=== PATIENT | female | born 1965 | race African-American/Black ===

== ENCOUNTER 2018-09-04 15:45 | Inpatient (IN) | payer OTHER ==
[2018-09-04 19:14] VITALS: BMI 27.3
[2018-09-04] MEDS ORDERED: MELATONIN 5 MG TABLETS PO PRN (22:00)
--- NOTE | 2018-09-04 22:05 | HP ---
CIWA Score - Admission Criteria [facility]AS Guidelines: Admission for Medically Managed Detox: Requires at least one of the followin. CIWA greater than 12 2. Seizures within the past 24 hours 3. Delirium tremens within the past 24 hours 4. Hallucinations within the past 24 hours 5. Acute intervention needed for co occurring medical disorder 6. Acute intervention needed for co occurring psychiatric disorder 7. Severe withdrawal that cannot be handled at a lower level of care (continued vomiting, continued diarrhea, abnormal vital signs) requiring intravenous medication and/or fluids 8. Admission ROS S - HPI Chief Complaint: Seeking admission to Rehab Allergies/Adverse Reactions: Allergies Allergy/AdvReac Type Severity Reaction Status Date / Time No Known Allergies Allergy Verified 09/04/18 21:26 History of Present Illness: 52 years old female is seeking admission to Rehab. Patient has medical history of COPD, depression, anxiety, hypertension and asthma. She denies suicide attempt or suicidal ideation at this time Exam Limitations: No Limitations - Ebola screening Have you traveled outside of the country in the last 21 days: No Have you had contact with anyone from an Ebola affected area: No Have you been sick,other than usual withdrawal symptoms: No Do you have a fever: No - Review of Systems Constitutional: No Symptoms Reported EENT: reports: No Symptoms Reported Respiratory: reports: No Symptoms reported Cardiac: reports: No Symptoms Reported GI: reports: No Symptoms Reported : reports: No Symptoms Reported Musculoskeletal: reports: No Symptoms Reported Integumentary: reports: No Symptoms Reported Neuro: reports: No Symptoms reported Endocrine: reports: No Symptoms Reported Hematology: reports: No Symptoms Reported Psychiatric: reports: No Sypmtoms Reported, Mood/Affect Appropiate, Orientated x3 Other Systems: Reviewed and Negative Patient History - Patient Medical History Hx Anemia: No Hx Asthma: Yes (ALBUTEROL) Hx Chronic Obstructive Pulmonary Disease (COPD): Yes (SYMBICORT) Hx Cancer: No Hx Cardiac Disorders: No Hx Congestive Heart Failure: No Hx Hypertension: Yes (NIFEDIPINE) Hx Hypercholesterolemia: Yes Hx Pacemaker: No HX Cerebrovascular Accident: No Hx Seizures: No Hx Dementia: No Hx Diabetes: No Hx Gastrointestinal Disorders: No Hx Liver Disease: No Hx Genitourinary Disorders: No Hx Sexually Transmitted Disorders: No Hx Renal Disease (ESRD): No Hx Thyroid Disease: No Hx Human Immunodeficiency Virus (HIV): No (NEGATIVE 2017) Hx Hepatitis C: No Hx Depression: Yes Hx Suicide Attempt: Yes (DENIES SUICIDAL IDEATION AT [facility]) Hx Bipolar Disorder: No Hx Schizophrenia: No - Patient Surgical History Past Surgical History: Yes Hx Abdominal Surgery: Yes (APPENDICITIS AT AGE 17) - PPD History Previous Implant?: No (INH FOR 6 MONTHS) PPD to be Administered?: No - Reproductive History Patient is a Female of Child Bearing Age (11 -55 yrs old): Yes LMP comment: MENOPAUSAL Patient : No - Smoking Cessation Smoking history: Current every day smoker Have you smoked in the past 12 months: Yes Aproximately how many cigarettes per day: 2 Hx Chewing Tobacco Use: No Initiated information on smoking cessation: Yes 'Breaking Loose' booklet given: 09/04/18 - Substance & Tx. History Hx Alcohol Use: Yes Hx Substance Use: Yes Substance Use Type: Alcohol, Cocaine Hx Substance Use Treatment: Yes ([facility]) - Substances Abused Alcohol Route: Oral Frequency: Daily Amount used: 1 PINT OF VODKA Age of first use: 12 Date of Last Use: 09/02/18 Cocaine Route: Smoking Frequency: Daily Amount used: $200 Age of first use: 25 Date of Last Use: 09/03/18 Family Disease History - Family Disease History Family Disease History: Heart Disease: Father (HTN, ), Mother Admission Physical Exam [facility] - Vital Signs Vital Signs: Vital Signs - 24 hr 09/04/18 19:12 Temperature 97.9 F Pulse Rate 98 H Respiratory 18 Rate Blood Pressure 118/80 - Physical General Appearance: Yes: No Apparent Distress HEENTM: Yes: EOMI, Normal ENT Inspection, Normocephalic, Normal Voice, KAYLEY Respiratory: Yes: Lungs Clear, Normal Breath Sounds, No Respiratory Distress Neck: Yes: Supple Breast: Yes: Breast Exam Deferred Cardiology: Yes: Tachycardia Abdominal: Yes: Normal Bowel Sounds, Soft Genitourinary: Yes: Within Normal Limits Back: Yes: Normal Inspection Musculoskeletal: Yes: Within Normal Limits 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, Alert, Normal Mood/Affect Integumentary: Yes: Warm Lymphatic: Yes: Within Normal Limits - Diagnostic (1) COPD (chronic obstructive pulmonary disease) Current Visit: Yes Status: Chronic Qualifiers: Chronic bronchitis type: unspecified (2) Depression Current Visit: Yes Status: Chronic Qualifiers: Depression Type: unspecified Qualified Code(s): F32.9 - Major depressive disorder, single episode, unspecified (3) Anxiety Current Visit: Yes Status: Acute (4) Hypertension Current Visit: Yes Status: Acute (5) Asthma Current Visit: Yes Status: Acute (6) Hypercholesterolemia Current Visit: No Status: Acute (7) Nicotine dependence Current Visit: No Status: Acute Qualifiers: Nicotine product type: cigarettes Substance use status: uncomplicated Qualified Code(s): F17.210 - Nicotine dependence, cigarettes, uncomplicated (8) Cocaine dependence Current Visit: Yes Status: Chronic Qualifiers: Substance use status: uncomplicated Qualified Code(s): F14.20 - Cocaine dependence, uncomplicated (9) Alcohol dependence Current Visit: Yes Status: Chronic Qualifiers: Substance use status: uncomplicated Qualified Code(s): F10.20 - Alcohol dependence, uncomplicated Cleared for Admission [facility] - Detox or Rehab [facility] Level of Care: Observation Bed Claeared for Rehab Admission: Yes [facility] Breath Alcohol Content Breath Alcohol Content: 0 Urine Pregancy Test - Result Urine Test Results: Negative- NO Line Present Urine Drug Screen - Results Drug Screen Negative: No Urine Drug Screen Results: MARIBETH-Cocaine Inpatient Rehab Admission - Initial Determination Are CD services needed?: Yes Free of communicable disease: Yes Not in need of hospitalization: Yes - Rehab Admission Criteria Previous failed treatment: Yes Poor recovery environment: Yes Comorbidities: Yes Lacks judgement: No Patient is meeting Inpatient Rehab admission criteria:: Yes
[2018-09-04] MEDS ORDERED: NICOTINE POLACRILEX 2 MG GUM BC PRN (22:16)
[2018-09-04] MEDS ORDERED: MAGNESIUM HYDROX 2400MG/30ML ORAL SUSPENSION 30 ML CUP PO PRN (22:16)
[2018-09-04] MEDS ORDERED: LOPERAMIDE HCL 2 MG CAPSULE PO PRN (22:16)
[2018-09-04] MEDS ORDERED: MENTHOL/PHENOL 1 EACH UD MM PRN (22:16)
[2018-09-04] MEDS ORDERED: MAG HYDROX/AL HYDROX/SIMETH 30 ML UNIT-DOSE CUP PO PRN (22:16)
[2018-09-04] MEDS ORDERED: MAGNESIUM CITRATE 300 ML BOTTLE PO PRN (22:16)
[2018-09-05] MEDS: ALBUTEROL SO4 8 GM HFA INHALER IH PRN (00:09)
[2018-09-05] MEDS: ALBUTEROL SO4 2.5/IPRATROPIUM 0.5 INH SOL 3 ML VIAL.NEB. NEB PRN ×2 (06:50→15:43)
[2018-09-05] MEDS ORDERED: PT OWN MED DRAWER 7, Y5N ONE ×3 (08:15→23:22)
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
[2018-09-05] MEDS: HYDROCHLOROTHIAZIDE 12.5 MG CAPSULE (FP) PO SCH (09:45)
[2018-09-05] MEDS: NICOTINE 14 MG/24 HOURS TOPICAL PATCH TD SCH (09:45)
[2018-09-05] MEDS: PRENATAL VITAMINS W/ FOLIC ACID TABLET (FP) PO SCH (09:45)
[2018-09-05] MEDS: NIFEdipine E.R. 30 MG TABLET (FP) PO SCH (10:12)
[2018-09-05] MEDS: BUDESONIDE/FORMETEROL FUMARATE 160/4.5 mcg INHALER IH SCH (10:12)
[2018-09-05 11:02] LABS: ALBUMIN 3.4 g/dl (3.4-5.0); ALK PHOS 103 U/L (45-117); ANION GAP 10 MMOL/L (8-16); BILIRUBIN,TOTAL 0.2 mg/dL (0.2-1); BLOOD UREA NITROGEN 18 mg/dL (7-18); CALCIUM 8.7 mg/dL (8.5-10.1); CHLORIDE 105 mmol/L (98-107); CO2 26 mmol/L (21-32); CREATININE 0.8 mg/dL (0.55-1.3); GLUCOSE,RANDOM 90 mg/dL (74-106); SGOT/AST 15 U/L (15-37); SGPT/ALT 24 U/L (13-61); SODIUM 141 mmol/L (136-145); TOT PROT 6.5 g/dl (6.4-8.2)
[2018-09-05 11:08] LABS: HEMATOCRIT 39.7 % (32.4-45.2); HEMOGLOBIN 12.8 GM/dL (10.7-15.3); MCHC 32.3 g/dl (32.0-36.0); MEAN CELL VOLUME 92.9 fl (80-96); MEAN PLT VOLUME 8.5 fl (7.5-11.1); PLATELET COUNT 253 K/MM3 (134-434); RBC 4.27 M/mm3 (3.60-5.2); RDW 14.6 % (11.6-15.6); WHITE BLOOD COUNT 9.1 K/mm3 (4.0-10.0)
--- NOTE | 2018-09-05 12:29 | EKG ---
Test Reason : Blood Pressure : / mmHG Vent. Rate : 074 BPM Atrial Rate : 074 BPM P-R Int : 144 ms QRS Dur : 086 ms QT Int : 390 ms P-R-T Axes : 072 076 067 degrees QTc Int : 432 ms NORMAL SINUS RHYTHM NORMAL ECG NO PREVIOUS ECGS AVAILABLE Confirmed by AMY TORRES, ESTRELLA ([id number]) on 09/05/2018 12:29:19 PM Referred By: Confirmed By:ESTRELLA REYES MD
[2018-09-05] MEDS: SERTRALINE HCL 50 MG TABLET (FP) PO SCH (15:43)
[2018-09-05 17:20] LABS: URINE APPEARANCE CLEAR; URINE BILIRUBIN NEGATIVE (<2.0 mg/dL); URINE COLOR YELLOW; URINE GLUCOSE (UA) NEGATIVE (NEGATIVE); URINE KETONE NEGATIVE (NEGATIVE); URINE LEUK ESTERASE TRACE (NEGATIVE); URINE NITRITE NEGATIVE (NEGATIVE); URINE PROTEIN NEGATIVE (NEGATIVE); URINE UROBILINOGEN NEGATIVE mg/dL (0.2-1.0)
[2018-09-05 17:22] LABS: EPI CELLS RARE /HPF (FEW); URINE MUCUS RARE
[2018-09-05] MEDS: THIAMINE HCL 100 MG TABLET (FP) PO SCH (21:19)
[2018-09-05] MEDS: traZODone HCL 100 MG TABLET (FP) PO SCH (21:20)
[2018-09-05] MEDS: MIRTAZAPINE 30 MG TABLET (FP) PO SCH (21:20)
[2018-09-06] MEDS: ALBUTEROL SO4 2.5/IPRATROPIUM 0.5 INH SOL 3 ML VIAL.NEB. NEB PRN ×2 (07:47→21:45)
[2018-09-06] MEDS: ALBUTEROL SO4 8 GM HFA INHALER IH PRN (08:54)
[2018-09-06] MEDS: SERTRALINE HCL 50 MG TABLET (FP) PO SCH (09:45)
[2018-09-06] MEDS: NIFEdipine E.R. 30 MG TABLET (FP) PO SCH (09:45)
[2018-09-06] MEDS: PRENATAL VITAMINS W/ FOLIC ACID TABLET (FP) PO SCH (09:46)
[2018-09-06] MEDS: HYDROCHLOROTHIAZIDE 12.5 MG CAPSULE (FP) PO SCH (09:46)
[2018-09-06] MEDS: BUDESONIDE/FORMETEROL FUMARATE 160/4.5 mcg INHALER IH SCH (09:46)
[2018-09-06] MEDS: NICOTINE 14 MG/24 HOURS TOPICAL PATCH TD SCH (09:47)
[2018-09-06] MEDS ORDERED: PT OWN MED DRAWER 7, Y5N ONE (10:22)
--- NOTE | 2018-09-06 11:36 | PN ---
S Progress Note Note: CXR RESULTS REVIEWED. PER HX AND PE PATIENT TREATED FOR 6 MONTHS WITH INH FOR +PPD. CXR SHOWS LEFT HEMITHORAX POSSIBLE SCARRING FROM OLD TB AND INFLAMMATION. NO PREVIOUS STUDIES. CORRELATION RECOMMENDED. WILL REPEAT CXR FIRST BEFORE ORDERING FURTHER IMAGING. CONTINUE TO MONITOR CLINICALLY. Vital Signs Temperature 98.1 F 09/06/18 07:05 Pulse Rate 112 H 09/06/18 09:32 Respiratory Rate 18 09/06/18 07:05 Blood Pressure 133/83 09/06/18 09:32 O2 Sat by Pulse Oximetry (%)
[2018-09-06] MEDS: LABETALOL HCL 100 MG TABLET (FP) PO SCH (12:31)
[2018-09-06] MEDS: MIRTAZAPINE 30 MG TABLET (FP) PO SCH (21:33)
[2018-09-06] MEDS: THIAMINE HCL 100 MG TABLET (FP) PO SCH (21:33)
[2018-09-06] MEDS: traZODone HCL 100 MG TABLET (FP) PO SCH (21:33)
[2018-09-07] MEDS: ALBUTEROL SO4 2.5/IPRATROPIUM 0.5 INH SOL 3 ML VIAL.NEB. NEB PRN ×3 (06:49→21:24)
[2018-09-07] MEDS ORDERED: PT OWN MED DRAWER 7, Y5N ONE (08:55)
[2018-09-07] MEDS: LABETALOL HCL 100 MG TABLET (FP) PO SCH (09:56)
[2018-09-07] MEDS: ATORVASTATIN CA 10 MG TABLET (FP) PO SCH (09:56)
[2018-09-07] MEDS: SERTRALINE HCL 50 MG TABLET (FP) PO SCH (09:56)
[2018-09-07] MEDS: PRENATAL VITAMINS W/ FOLIC ACID TABLET (FP) PO SCH (09:56)
[2018-09-07] MEDS: HYDROCHLOROTHIAZIDE 12.5 MG CAPSULE (FP) PO SCH (09:56)
[2018-09-07] MEDS: NICOTINE 14 MG/24 HOURS TOPICAL PATCH TD SCH (09:57)
[2018-09-07] MEDS: BUDESONIDE/FORMETEROL FUMARATE 160/4.5 mcg INHALER IH SCH (09:57)
[2018-09-07] MEDS: ALBUTEROL SO4 8 GM HFA INHALER IH PRN (09:57)
[2018-09-07] MEDS: NIFEdipine E.R. 30 MG TABLET (FP) PO SCH (10:33)
[2018-09-07] MEDS: MIRTAZAPINE 30 MG TABLET (FP) PO SCH (21:26)
[2018-09-07] MEDS: traZODone HCL 100 MG TABLET (FP) PO SCH (21:26)
[2018-09-07] MEDS: THIAMINE HCL 100 MG TABLET (FP) PO SCH (21:26)
[2018-09-08] MEDS: ALBUTEROL SO4 2.5/IPRATROPIUM 0.5 INH SOL 3 ML VIAL.NEB. NEB PRN ×3 (04:59→21:29)
[2018-09-08] MEDS ORDERED: PT OWN MED DRAWER 7, Y5N ONE (08:39)
[2018-09-08] MEDS: ATORVASTATIN CA 10 MG TABLET (FP) PO SCH (09:14)
[2018-09-08] MEDS: PRENATAL VITAMINS W/ FOLIC ACID TABLET (FP) PO SCH (09:14)
[2018-09-08] MEDS: NIFEdipine E.R. 30 MG TABLET (FP) PO SCH (09:14)
[2018-09-08] MEDS: LABETALOL HCL 100 MG TABLET (FP) PO SCH (09:14)
[2018-09-08] MEDS: SERTRALINE HCL 50 MG TABLET (FP) PO SCH (09:14)
[2018-09-08] MEDS: HYDROCHLOROTHIAZIDE 12.5 MG CAPSULE (FP) PO SCH (09:14)
[2018-09-08] MEDS: BUDESONIDE/FORMETEROL FUMARATE 160/4.5 mcg INHALER IH SCH (09:15)
[2018-09-08] MEDS: NICOTINE 14 MG/24 HOURS TOPICAL PATCH TD SCH (09:15)
[2018-09-08] MEDS: ALBUTEROL SO4 8 GM HFA INHALER IH PRN ×2 (09:15→17:08)
--- NOTE | 2018-09-08 20:03 | PN ---
[facility] Progress Note Note: Pt's Albuterol inhaler and neb tx changed to Q4h because pt c/o increasing SOB.
[2018-09-08] MEDS: THIAMINE HCL 100 MG TABLET (FP) PO SCH (21:29)
[2018-09-08] MEDS: MIRTAZAPINE 30 MG TABLET (FP) PO SCH (21:29)
[2018-09-08] MEDS: traZODone HCL 100 MG TABLET (FP) PO SCH (21:29)
[2018-09-09] MEDS ORDERED: ONDANSETRON *ODT* 4 MG TABLET SL PRN (00:15)
[2018-09-09] MEDS: ALBUTEROL SO4 2.5/IPRATROPIUM 0.5 INH SOL 3 ML VIAL.NEB. NEB PRN (04:55)
[2018-09-09] MEDS: TRIMETHOBENZAMIDE HCL 200MG/2ML INJ IM PRN (06:15)
[2018-09-09] MEDS: ATORVASTATIN CA 10 MG TABLET (FP) PO SCH (10:31)
[2018-09-09] MEDS: PRENATAL VITAMINS W/ FOLIC ACID TABLET (FP) PO SCH (10:31)
[2018-09-09] MEDS: SERTRALINE HCL 50 MG TABLET (FP) PO SCH (10:32)
[2018-09-09] MEDS: ACETAMINOPHEN 325 MG TABLET (FP) PO PRN (10:32)
[2018-09-09] MEDS: BUDESONIDE/FORMETEROL FUMARATE 160/4.5 mcg INHALER IH SCH (10:33)
[2018-09-09] MEDS: NICOTINE 14 MG/24 HOURS TOPICAL PATCH TD SCH (10:33)
[2018-09-09] MEDS: LABETALOL HCL 100 MG TABLET (FP) PO SCH (10:59)
[2018-09-09] MEDS: HYDROCHLOROTHIAZIDE 12.5 MG CAPSULE (FP) PO SCH (10:59)
[2018-09-09] MEDS: NIFEdipine E.R. 30 MG TABLET (FP) PO SCH (10:59)
--- NOTE | 2018-09-09 11:30 | PN ---
[facility] Progress Note Note: TC from RN re pt's anti-hypertensives and her BP. RN to give meds as ordered, to encourage increased hydration and educate on slow getting out of bed. Continue to monitor clinically. Last Vital Signs Temp Pulse Resp BP Pulse Ox 98.4 F 97 H 18 119/74 09/09/18 09:08 09/09/18 09:08 09/09/18 09:08 09/09/18 09:08
[2018-09-09] MEDS: IBUPROFEN 400 MG TABLET (FP) PO PRN ×2 (13:50→21:07)
[2018-09-09] MEDS: MIRTAZAPINE 30 MG TABLET (FP) PO SCH (21:07)
[2018-09-09] MEDS: THIAMINE HCL 100 MG TABLET (FP) PO SCH (21:07)
[2018-09-09] MEDS: traZODone HCL 100 MG TABLET (FP) PO SCH (21:07)
[2018-09-10] MEDS: ALBUTEROL SO4 2.5/IPRATROPIUM 0.5 INH SOL 3 ML VIAL.NEB. NEB PRN (06:03)
[2018-09-10] MEDS: TRIMETHOBENZAMIDE HCL 200MG/2ML INJ IM PRN (06:04)
[2018-09-10] MEDS ORDERED: PT OWN MED DRAWER 7, Y5N ONE ×2 (08:44→19:53)
[2018-09-10] MEDS: IBUPROFEN 400 MG TABLET (FP) PO PRN (10:15)
[2018-09-10] MEDS: HYDROCHLOROTHIAZIDE 12.5 MG CAPSULE (FP) PO SCH (10:16)
[2018-09-10] MEDS: SERTRALINE HCL 50 MG TABLET (FP) PO SCH (10:16)
[2018-09-10] MEDS: NIFEdipine E.R. 30 MG TABLET (FP) PO SCH (10:16)
[2018-09-10] MEDS: PRENATAL VITAMINS W/ FOLIC ACID TABLET (FP) PO SCH (10:16)
[2018-09-10] MEDS: LABETALOL HCL 100 MG TABLET (FP) PO SCH (10:16)
[2018-09-10] MEDS: ATORVASTATIN CA 10 MG TABLET (FP) PO SCH (10:16)
[2018-09-10] MEDS: BUDESONIDE/FORMETEROL FUMARATE 160/4.5 mcg INHALER IH SCH (10:17)
[2018-09-10] MEDS: NICOTINE 14 MG/24 HOURS TOPICAL PATCH TD SCH (10:17)
--- NOTE | 2018-09-10 11:42 | PN ---
[facility] Progress Note Note: PATIENT SEEN FOR FOLLOW UP CXR RESULTS. PATIENT PMH INCLUDES +PPD WITH INH TREATMENT. PATIENT DENIES COUGH, SOB, WEIGHT LOSS AND FEVER. Laboratory Tests 09/05/18 09/05/18 09/05/18 09:34 09:34 09:34 WBC 9.1 RBC 4.27 Hgb 12.8 Hct 39.7 MCV 92.9 MCH 30.0 MCHC 32.3 RDW 14.6 Plt Count 253 MPV 8.5 Sodium 141 Potassium 4.0 Chloride 105 Carbon Dioxide 26 Anion Gap 10 BUN 18 Creatinine 0.8 Creat Clearance w eGFR > 60 Random Glucose 90 Calcium 8.7 Total Bilirubin 0.2 AST 15 ALT 24 Alkaline Phosphatase 103 Total Protein 6.5 Albumin 3.4 Urine Color Urine Appearance Urine pH Ur Specific [place] Urine Protein Urine Glucose (UA) Urine Ketones Urine Blood Urine Nitrite Urine Bilirubin Urine Urobilinogen Ur Leukocyte Esterase Urine WBC (Auto) Urine RBC (Auto) Ur Epithelial Cells Urine Mucus RPR Titer Nonreactive 09/05/18 12:49 WBC RBC Hgb Hct MCV MCH MCHC RDW Plt Count MPV Sodium Potassium Chloride Carbon Dioxide Anion Gap BUN Creatinine Creat Clearance w eGFR Random Glucose Calcium Total Bilirubin AST ALT Alkaline Phosphatase Total Protein Albumin Urine Color Yellow Urine Appearance Clear Urine pH 7.0 Ur Specific [place] 1.020 Urine Protein Negative Urine Glucose (UA) Negative Urine Ketones Negative Urine Blood Negative Urine Nitrite Negative Urine Bilirubin Negative Urine Urobilinogen Negative Ur Leukocyte Esterase Trace Urine WBC (Auto) 4 Urine RBC (Auto) <1 Ur Epithelial Cells Rare Urine Mucus Rare RPR Titer Vital Signs Temperature 98.5 F 09/10/18 09:00 Pulse Rate 98 H 09/10/18 09:00 Respiratory Rate 18 09/10/18 09:00 Blood Pressure 112/76 09/10/18 09:00 O2 Sat by Pulse Oximetry (%) PE: ALERT AND ORIENTED X 3 SKIN WARM AND DRY CAR SIS2 RESP CTA BL EXT FULL ROM, AMB AD MOLLY REPEAT CXR: +LEFT APICAL DENSITY. SAME RESULTS PREVIOUS CXR. CT RECOMMENDED FOR CLINICAL CORRELATION. A/P: H/O +PPD CXR LEFT APICAL DENSITY SPOKE WITH PATIENT AND DISCUSSED NEED FOR CT OF CHEST. PATIENT UNSURE OF D/C DATE, CAN BE IN NEXT 5-7 DAYS, PENDING INSURANCE APPROVAL. PATIENT ADVISED TO FOLLOW UP WITH PCP FOR REFERRAL FOR CT OF CHEST. PATIENT AGREES WITH PLAN. CONTINUE TO MONITOR CLINICALLY
[2018-09-10] MEDS: THIAMINE HCL 100 MG TABLET (FP) PO SCH (21:14)
[2018-09-10] MEDS: MIRTAZAPINE 30 MG TABLET (FP) PO SCH (21:14)
[2018-09-10] MEDS: traZODone HCL 100 MG TABLET (FP) PO SCH (21:14)
[2018-09-11] MEDS: ALBUTEROL SO4 2.5/IPRATROPIUM 0.5 INH SOL 3 ML VIAL.NEB. NEB PRN (08:40)
[2018-09-11] MEDS: HYDROCHLOROTHIAZIDE 12.5 MG CAPSULE (FP) PO SCH (10:04)
[2018-09-11] MEDS: ATORVASTATIN CA 10 MG TABLET (FP) PO SCH (10:04)
[2018-09-11] MEDS: PRENATAL VITAMINS W/ FOLIC ACID TABLET (FP) PO SCH (10:04)
[2018-09-11] MEDS: NIFEdipine E.R. 30 MG TABLET (FP) PO SCH (10:04)
[2018-09-11] MEDS: BUDESONIDE/FORMETEROL FUMARATE 160/4.5 mcg INHALER IH SCH (10:05)
[2018-09-11] MEDS: LABETALOL HCL 100 MG TABLET (FP) PO SCH (10:05)
[2018-09-11] MEDS: NICOTINE 14 MG/24 HOURS TOPICAL PATCH TD SCH (10:05)
[2018-09-11] MEDS: SERTRALINE HCL 50 MG TABLET (FP) PO SCH (10:05)
[2018-09-11] MEDS: IBUPROFEN 400 MG TABLET (FP) PO PRN (15:55)
[2018-09-11] MEDS: THIAMINE HCL 100 MG TABLET (FP) PO SCH (21:24)
[2018-09-11] MEDS: MIRTAZAPINE 30 MG TABLET (FP) PO SCH (21:25)
[2018-09-11] MEDS: traZODone HCL 100 MG TABLET (FP) PO SCH (21:25)
[2018-09-12] MEDS: ALBUTEROL SO4 2.5/IPRATROPIUM 0.5 INH SOL 3 ML VIAL.NEB. NEB PRN ×4 (03:32→22:36)
[2018-09-12] MEDS: IBUPROFEN 400 MG TABLET (FP) PO PRN ×2 (09:53→19:08)
[2018-09-12] MEDS: ATORVASTATIN CA 10 MG TABLET (FP) PO SCH (09:54)
[2018-09-12] MEDS: NIFEdipine E.R. 30 MG TABLET (FP) PO SCH (09:54)
[2018-09-12] MEDS: PRENATAL VITAMINS W/ FOLIC ACID TABLET (FP) PO SCH (09:54)
[2018-09-12] MEDS: LABETALOL HCL 100 MG TABLET (FP) PO SCH (09:54)
[2018-09-12] MEDS: HYDROCHLOROTHIAZIDE 12.5 MG CAPSULE (FP) PO SCH (09:54)
[2018-09-12] MEDS: guaiFENesin/D-METHORPHAN HB 10 ML UNIT-DOSE CUPS PO PRN ×2 (09:55→21:29)
[2018-09-12] MEDS: BUDESONIDE/FORMETEROL FUMARATE 160/4.5 mcg INHALER IH SCH (09:55)
[2018-09-12] MEDS: SERTRALINE HCL 50 MG TABLET (FP) PO SCH (09:55)
[2018-09-12] MEDS: NICOTINE 14 MG/24 HOURS TOPICAL PATCH TD SCH (09:57)
[2018-09-12] MEDS: ALBUTEROL SO4 8 GM HFA INHALER IH PRN (14:46)
[2018-09-12] MEDS: ACETAMINOPHEN 325 MG TABLET (FP) PO PRN (14:49)
[2018-09-12] MEDS: MIRTAZAPINE 30 MG TABLET (FP) PO SCH (21:27)
[2018-09-12] MEDS: traZODone HCL 100 MG TABLET (FP) PO SCH (21:27)
[2018-09-12] MEDS: THIAMINE HCL 100 MG TABLET (FP) PO SCH (21:27)
--- NOTE | 2018-09-12 22:03 | PN ---
[facility] Progress Note Note: seen for c/o cough, greenish expectorant, seeking antibiotic txmnet and er visit. denies fever, chills, c.p., + intermittent sob seen awake alert seated in patient lounge area conversing with other patients nad Vital Signs - 24 hr 09/12/18 22:19 Temperature 97.2 F L Pulse Rate 89 Respiratory 20 Rate Blood Pressure 112/74 Laboratory Tests 09/05/18 09/05/18 09/05/18 09:34 09:34 09:34 WBC 9.1 RBC 4.27 Hgb 12.8 Hct 39.7 MCV 92.9 MCH 30.0 MCHC 32.3 RDW 14.6 Plt Count 253 MPV 8.5 Sodium 141 Potassium 4.0 Chloride 105 Carbon Dioxide 26 Anion Gap 10 BUN 18 Creatinine 0.8 Creat Clearance w eGFR > 60 Random Glucose 90 Calcium 8.7 Total Bilirubin 0.2 AST 15 ALT 24 Alkaline Phosphatase 103 Total Protein 6.5 Albumin 3.4 Urine Color Urine Appearance Urine pH Ur Specific [place] Urine Protein Urine Glucose (UA) Urine Ketones Urine Blood Urine Nitrite Urine Bilirubin Urine Urobilinogen Ur Leukocyte Esterase Urine WBC (Auto) Urine RBC (Auto) Ur Epithelial Cells Urine Mucus RPR Titer Nonreactive chest xray noted labs noted client was examined at bedside lungs ctab no w/r/r 02 sat ra 93-95% cv tachy 94 bpm copd, asthma p- duoneb prn robitussin prn increase po fluids consider short dose of steroids for worsening sx's
[2018-09-13] MEDS: ALBUTEROL SO4 2.5/IPRATROPIUM 0.5 INH SOL 3 ML VIAL.NEB. NEB PRN ×4 (02:36→18:55)
[2018-09-13] MEDS: guaiFENesin/D-METHORPHAN HB 10 ML UNIT-DOSE CUPS PO PRN ×3 (02:46→21:28)
[2018-09-13] MEDS: P-EPHED 60MG/TRIPROLIDI 2.5MG TABLET PO PRN (02:47)
[2018-09-13] MEDS: PRENATAL VITAMINS W/ FOLIC ACID TABLET (FP) PO SCH (10:07)
[2018-09-13] MEDS: ATORVASTATIN CA 10 MG TABLET (FP) PO SCH (10:07)
[2018-09-13] MEDS: SERTRALINE HCL 50 MG TABLET (FP) PO SCH (10:07)
[2018-09-13] MEDS: NICOTINE 14 MG/24 HOURS TOPICAL PATCH TD SCH (10:07)
[2018-09-13] MEDS: HYDROCHLOROTHIAZIDE 12.5 MG CAPSULE (FP) PO SCH (10:08)
[2018-09-13] MEDS: BUDESONIDE/FORMETEROL FUMARATE 160/4.5 mcg INHALER IH SCH (10:08)
[2018-09-13] MEDS: NIFEdipine E.R. 30 MG TABLET (FP) PO SCH (10:08)
[2018-09-13] MEDS: LABETALOL HCL 100 MG TABLET (FP) PO SCH (10:08)
[2018-09-13] MEDS: ALBUTEROL SO4 8 GM HFA INHALER IH PRN (11:50)
[2018-09-13] MEDS: IBUPROFEN 400 MG TABLET (FP) PO PRN (11:50)
--- NOTE | 2018-09-13 14:43 | PN ---
S Progress Note Note: pt c/o sob woth cough and sputum production. Reports exertional dyspnea. Hx of asthma and copd. reports she gets prednisone intermittently for respiratory problems. Reviewed pt's home pharmacy list. pt gets prednisone 20 mg po bid at short time durations. Vital Signs 09/13/18 09/13/18 07:18 10:00 Temperature 97.6 F Pulse Rate 98 H 86 Respiratory 16 Rate Blood Pressure 108/73 100/68 lungs:clear to auscultate. (pt just had treatment before encounter) Plan:prednisone 20 ng po bid x 5 days Increase po fluids
[2018-09-13] MEDS: predniSONE 20 MG TABLET (UD) PO SCH (21:27)
[2018-09-13] MEDS: traZODone HCL 100 MG TABLET (FP) PO SCH (21:28)
[2018-09-13] MEDS: MIRTAZAPINE 30 MG TABLET (FP) PO SCH (21:28)
[2018-09-13] MEDS: THIAMINE HCL 100 MG TABLET (FP) PO SCH (21:29)
[2018-09-14] MEDS: ALBUTEROL SO4 2.5/IPRATROPIUM 0.5 INH SOL 3 ML VIAL.NEB. NEB PRN ×4 (00:49→22:17)
[2018-09-14] MEDS: P-EPHED 60MG/TRIPROLIDI 2.5MG TABLET PO PRN (01:09)
[2018-09-14] MEDS: guaiFENesin/D-METHORPHAN HB 10 ML UNIT-DOSE CUPS PO PRN ×2 (04:03→09:42)
[2018-09-14] MEDS ORDERED: PT OWN MED DRAWER 7, Y5N ONE (09:08)
[2018-09-14] MEDS: SERTRALINE HCL 50 MG TABLET (FP) PO SCH (09:26)
[2018-09-14] MEDS: HYDROCHLOROTHIAZIDE 12.5 MG CAPSULE (FP) PO SCH (09:26)
[2018-09-14] MEDS: PRENATAL VITAMINS W/ FOLIC ACID TABLET (FP) PO SCH (09:26)
[2018-09-14] MEDS: LABETALOL HCL 100 MG TABLET (FP) PO SCH (09:27)
[2018-09-14] MEDS: ATORVASTATIN CA 10 MG TABLET (FP) PO SCH (09:27)
[2018-09-14] MEDS: NIFEdipine E.R. 30 MG TABLET (FP) PO SCH (09:27)
[2018-09-14] MEDS: predniSONE 20 MG TABLET (UD) PO SCH ×2 (09:29→22:18)
[2018-09-14] MEDS: IBUPROFEN 400 MG TABLET (FP) PO PRN (09:29)
[2018-09-14] MEDS: BUDESONIDE/FORMETEROL FUMARATE 160/4.5 mcg INHALER IH SCH (09:30)
[2018-09-14] MEDS: NICOTINE 14 MG/24 HOURS TOPICAL PATCH TD SCH (09:30)
[2018-09-14] MEDS: ALBUTEROL SO4 8 GM HFA INHALER IH PRN (13:05)
--- NOTE | 2018-09-14 15:08 | PN ---
S Progress Note Note: CALLED TO SEE PT WHO C/O RESPIRATORY DISTRESS-SOB, IRRITABLE,CRYING AND SLIGHT GASPING FOR BREATHE WITH ANXIETY AND REQUESTS TO BE SEEN AT THE ER. PT HAS A HX OF ASTHMA AND COPD. ON NEBULIZER TX AND REPORTS NOT EFFECTIVE. PREDNISONE 20 MG 20 MG PO BID AND RECEIVED PREDNISONE 20 MG THIS MORNING. Vital Signs 09/14/18 09/14/18 07:15 09:15 Temperature 98.0 F Pulse Rate 102 H 116 H Respiratory 18 18 Rate Blood Pressure 137/88 130/86 PULSE OX:97 TO 99% ROOM AIR CARDIAC:S1 S2 TACHYCARDIA LUNGS:TIGHT, DIMINISHED BREATH SOUNDS(AIR FLOW) INTERMITTENT USE OF ACCESSORY MUSCLES PLAN:TRANSFER TO [facility] VIA AMBULANCE. SPOKE WITH DR. CECY PINEDA AT THE ED.
[2018-09-14] MEDS: THIAMINE HCL 100 MG TABLET (FP) PO SCH (22:18)
[2018-09-14] MEDS: MIRTAZAPINE 30 MG TABLET (FP) PO SCH (22:18)
[2018-09-14] MEDS: traZODone HCL 100 MG TABLET (FP) PO SCH (22:18)
--- NOTE | 2018-09-15 00:34 | PN ---
[facility] Progress Note Note: Received report earlier from Dr. Bello at [facility] ER regarding patient's status. CBC showed mildly elevated WBC 11.2; Chest x-ray showed no acute pulmonary process. CMP: elevations of AST/ALT compared to last visit nad may be r/t patient retarting simvastatin/HCTZ/trazodone. Patient informed to f/u w/ PCP at discharge. ECG in ER showed NSR, HR 96, normal intervals. TWIs V1,V2, present on prior ECG. Patient cleared to return to rehab. Patient alert and oriented and in no current resp distress. Lungs CTA. Will start on Z-pack in am per ER recommendation. Will revise prednisone dosing. Standing order for Albuterol neb q12h x 2 days. Continue prn.
[2018-09-15] MEDS ORDERED: AZITHROMYCIN 250 MG TABLET PO ONE (00:38)
[2018-09-15] MEDS: ALBUTEROL SO4 2.5/IPRATROPIUM 0.5 INH SOL 3 ML VIAL.NEB. NEB PRN ×3 (02:20→11:40)
[2018-09-15] MEDS: ALBUTEROL SO4 0.083% IH SOL 2.5 MG/3 ML VIAL.NEB. NEB SCH ×2 (09:01→23:21)
[2018-09-15] MEDS: predniSONE 20 MG TABLET (UD) PO SCH ×2 (09:47→23:20)
[2018-09-15] MEDS: HYDROCHLOROTHIAZIDE 12.5 MG CAPSULE (FP) PO SCH (09:47)
[2018-09-15] MEDS: LABETALOL HCL 100 MG TABLET (FP) PO SCH (09:47)
[2018-09-15] MEDS: SERTRALINE HCL 50 MG TABLET (FP) PO SCH (09:47)
[2018-09-15] MEDS: PRENATAL VITAMINS W/ FOLIC ACID TABLET (FP) PO SCH (09:47)
[2018-09-15] MEDS: ATORVASTATIN CA 10 MG TABLET (FP) PO SCH (09:47)
[2018-09-15] MEDS: NIFEdipine E.R. 30 MG TABLET (FP) PO SCH (09:47)
[2018-09-15] MEDS: BUDESONIDE/FORMETEROL FUMARATE 160/4.5 mcg INHALER IH SCH (09:48)
[2018-09-15] MEDS: NICOTINE 14 MG/24 HOURS TOPICAL PATCH TD SCH (09:49)
[2018-09-15] MEDS: guaiFENesin/D-METHORPHAN HB 10 ML UNIT-DOSE CUPS PO PRN (09:50)
[2018-09-15] MEDS: IBUPROFEN 400 MG TABLET (FP) PO PRN (09:51)
[2018-09-15] MEDS: ALBUTEROL SO4 8 GM HFA INHALER IH PRN (13:55)
--- NOTE | 2018-09-15 15:42 | PN ---
S Progress Note Note: received call from RN that pt was having SOB 92%O2 on RA. pt was seen lungs assessed, CTA reviewed pt med list. appropriate for pt at this time. symbicort increased to BID. continue with duoned, albuterol inh, prednisone will order O2 at 2liters via N/C prn if pt is exhibiting SOB and o2 sat decline. if pt cannot manage her breathing pt will be reassessed and will require to go to ED for further eval.
--- NOTE | 2018-09-15 18:51 | PN ---
[facility] Progress Note Note: patient complained of sob history of copd seen in er yesterday pulse ox is 88 on o2 2l/min lung expiratory bp 145/92,p112,r24/min impression acute exacerbation of copd alcohol dependence cocaine dependence hypertension treatment o2 nasal canula 2 l/min to er for evaluation at [facility],endorsed to Dr.Miriam Sheikh to be transported by [facility]
[2018-09-15] MEDS ORDERED: BUDESONIDE/FORMETEROL FUMARATE 160/4.5 mcg INHALER IH SCH (22:00)
[2018-09-15 22:12] VITALS: BP 145/92; PULSE 112; TEMP 97.5
[2018-09-15] MEDS: traZODone HCL 100 MG TABLET (FP) PO SCH (23:20)
[2018-09-15] MEDS: MIRTAZAPINE 30 MG TABLET (FP) PO SCH (23:20)
[2018-09-15] MEDS: THIAMINE HCL 100 MG TABLET (FP) PO SCH (23:21)
[2018-09-16] MEDS ORDERED: predniSONE 20 MG TABLET (UD) PO SCH (10:00)
[2018-09-16] MEDS ORDERED: AZITHROMYCIN 250 MG TABLET PO SCH (10:00)
[2018-09-17] MEDS ORDERED: predniSONE 20 MG TABLET (UD) PO SCH (10:00)
[2018-09-20] MEDS ORDERED: predniSONE 10 MG TABLET (UD) PO SCH (10:00)
[2018-09-23] MEDS ORDERED: predniSONE 5 MG TABLET (UD) PO SCH (10:00)
== END 2018-09-15 23:34 | DRG 772 ==
LOC: YASAS 15:45 → Y3E 21:36
PROVIDERS: ADMIT Psychiatry & Neurology Psychiatry; ATTEND Psychiatry & Neurology Psychiatry
PROC: HZ42ZZZ Group Counseling for Substance Abuse Treatment, Cognitive-Behavioral (ICD-10-PCS; principal; 2018-09-04)
DX: F10.20 Alcohol dependence, uncomplicated (principal); F14.20 Cocaine dependence, uncomplicated; F17.210 Nicotine dependence, cigarettes, uncomplicated; F19.24 Other psychoactive substance dependence with psychoactive substance-induced mood disorder; F41.9 Anxiety disorder, unspecified; J44.1 Chronic obstructive pulmonary disease with (acute) exacerbation; J45.21 Mild intermittent asthma with (acute) exacerbation; I10 Essential (primary) hypertension; R06.02 Shortness of breath; R00.0 Tachycardia, unspecified; R91.8 Other nonspecific abnormal finding of lung field; E78.00 Pure hypercholesterolemia, unspecified
CPT/HCPCS: 36415; 71045-TC-FY; 71046-TC-FY; 80053; 81003; 81015; 85027; 86593; 93005; 93010; 94640; Q0162

== ENCOUNTER 2018-09-14 16:03 | Emergency (ER) | payer OTHER ==
[2018-09-14] MEDS ORDERED: SODIUM CHLORIDE 500 ML IV STA (16:18)
[2018-09-14] MEDS ORDERED: methylPREDNISolone NA SUCC 125 MG/2 ML VIAL IVPUSH ONE (16:19)
[2018-09-14] MEDS ORDERED: ALBUTEROL SO4 2.5/IPRATROPIUM 0.5 INH SOL 3 ML VIAL.NEB. NEB ONE ×5 (16:21→18:17)
[2018-09-14 16:37] VITALS: BMI 32.2
--- NOTE | 2018-09-14 16:59 | PDOC ---
Attending Attestation - HPI HPI: 09/14/18 20:33 The patient is a 52 year old female, with a significant PMH of asthma, COPD, HTN, HLD, who presents to the emergency department with an asthma/ COPD exacerbation began 3 days ago that progressively worsened today. The patient states she was given prednisone twice and was given nebulizer 3 times ( 1 at [facility], in the ambulance and emergency room) secondary to feeling short of breath. The patient states she currently feels better. The patient denies chest pain,headache and dizziness. Denies fever, chills, nausea, vomit, diarrhea and constipation. Allergies: NKDA Past surgical history: Appendicitis Social history: Current everyday smoker (2 cigarettes/day), drinks alcohol and admits to cocaine use. PCP: None reported Documentation prepared by Cherie Sandra, acting as emergency medical service coordinator for Breann Hercules MD. - Physicial Exam PE: 09/14/18 18:16 GENERAL: The patient is in no acute distress. HEAD: Normal with no signs of trauma. LUNGS:+ Decreased breath sound,+faint expiratory wheezing. Breath sounds equal, clear to auscultation bilaterally. No wheezes, and no crackles. HEART:+Tachycardia. Normal S1 and S2 without murmur, rub or gallop. ABDOMEN: Soft, nontender, normoactive bowel sounds. No guarding, no rebound. No masses palpable. EXTREMITIES: Normal range of motion, no edema. No clubbing or cyanosis. No erythema, or tenderness. NEUROLOGICAL: Cranial nerves II through XII grossly intact. Normal speech. No focal neurological deficits. SKIN: Warm, Dry, normal turgor, no rashes or lesions noted. <Cherie Sandra - Last Filed: 09/14/18 20:33> - Resident Resident Name: Nanda Bello - ED Attending Attestation I have performed the following: I have examined & evaluated the patient, The case was reviewed & discussed with the resident, I agree w/resident's findings & plan, Exceptions are as noted - Medical Decision Making 09/14/18 16:42 Ms Bauman was sent to the ER from [facility] due to asthma/COPD exacerbation She was given prednisone twice She was given a nebulizer treatment but continued to feel short of breath Requested to be sent to the ER Neb given en route to the ER Pt states she feels better Will do: Basic labs CXR - r/o pneumonia Solumedrol An additional neb given in the ER Anticipate return to [facility] <Breann Hercules - Last Filed: 09/17/18 21:05>
[2018-09-14 17:24] LABS: BASO % 0.4 % (0-2.0); EOS % 0.1 % (0-4.5); HEMATOCRIT 36.1 % (32.4-45.2); HEMOGLOBIN 12.4 GM/dL (10.7-15.3); LYMPH % 11.3 % (8-40); MCH 31.3 pg (25.7-33.7); MCHC 34.3 g/dl (32.0-36.0); MEAN CELL VOLUME 91.4 fl (80-96); MEAN PLT VOLUME 8.8 fl (7.5-11.1); MONO % 7.8 % (3.8-10.2); NEUT % 80.4 % (42.8-82.8); PLATELET COUNT 264 K/MM3 (134-434); RBC 3.95 M/mm3 (3.60-5.2); RDW 15.2 % (11.6-15.6); WHITE BLOOD COUNT 11.2 K/mm3 (4.0-10.0)
--- NOTE | 2018-09-14 17:41 | PDOC ---
History of Present Illness - General Stated Complaint: ASTHMA Time Seen by Provider: 09/14/18 16:15 History Source: Patient Exam Limitations: No Limitations Past History - Past Medical History Allergies/Adverse Reactions: Allergies Allergy/AdvReac Type Severity Reaction Status Date / Time No Known Allergies Allergy Verified 09/04/18 21:26 Home Medications: Ambulatory Orders Aclidinium [place] [Tudorza Pressair] 400 mcg IH DAILY 09/04/18 Albuterol Sulfate Inhaler - [Ventolin Hfa Inhaler -] 2 inh PO Q6H PRN 09/04/18 Budesonide/Formeterol Fumarate [SYMBICORT 160/4.5mcg -] 1 inh PO DAILY 09/04/18 Guaifenesin [Cough Syrup] 100 mg PO DAILY 09/04/18 Hydrochlorothiazide [Hctz -] 12.5 mg PO DAILY 09/04/18 Labetalol HCl 100 mg PO DAILY 09/04/18 Mirtazapine 30 mg PO DAILY 09/04/18 Multivitamins [Tab-A-Vit -] 1 tab PO DAILY 09/04/18 Nicotine Polacrilex [Nicotine Gum] 2 mg PO DAILY 09/04/18 Nifedipine [Procardia Xl] 30 mg PO DAILY 09/04/18 Sertraline HCl 50 mg PO DAILY 09/04/18 Simvastatin 20 mg PO DAILY 09/04/18 traZODone HCL [Trazodone HCl] 100 mg PO HS PRN 09/04/18 Anemia: No Asthma: Yes (ALBUTEROL) Cancer: No Cardiac Disorders: No CVA: No COPD: Yes (SYMBICORT) CHF: No Dementia: No Diabetes: No GI Disorders: No Disorders: No HTN: Yes (NIFEDIPINE) Hypercholesterolemia: Yes Liver Disease: No Seizures: No Thyroid Disease: No - Surgical History Abdominal Surgery: Yes (APPENDICITIS AT AGE 17) - Suicide/Smoking/Psychosocial Hx Smoking History: Current every day smoker Have you smoked in the past 12 months: Yes Number of Cigarettes Smoked Daily: 2 'Breaking Loose' booklet given: 09/04/18 Hx Alcohol Use: Yes (drinking since 15 yo,vodka a few pints daily) Drug/Substance Use Hx: Yes (cocaine since 16 yo,then crack since 23 yo) Substance Use Type: Alcohol, Cocaine Hx Substance Use Treatment: Yes (completed inpatient rehab in 1993) Medical Decision Making - Medical Decision Making Pt was seen at bedside, also will be seen by attending Dr. Hercules. Pt presenting via EMS with complaints of SOB since yesterday and productive cough of yellow/ clear sputum since ~1 week. Pt is coming from [facility] for rehabilitation of crack cocaine (admitted 09/04/2018). Pt states she takes albuterol and nebulizer treatments, and that they started 20 mg PO prednisone last night, with minimal relief of SOB. Pt received an additional albuterol nebulizer treatment in the ambulance, which made her SOB better. Pt denies any fevers/ chills, headache, vision changes, chest pain, palpitations, nausea/vomiting, abdominal pain, urinary symptoms, diarrhea/constipation, or leg swelling. PE showed mild expiratory wheezes b/l anterior and posterior, no focal areas of dullness or diminished breath sounds. Pt saturating at 97-99% on RA on arrival. No b/l pedal edema, no JVD, no murmur (does not appear fluid overloaded). Oral pharynx without erythema or exudate. Considering asthma/COPD exacerbation vs viral URI vs pneumonia vs ACS vs CHF. Ordered work-up including CBC, CMP, trop, Mg, ECG and portable chest x-ray. Provided duoneb + albuterol neb Q4hr PRN, 500 mg IV NS, 125 mg IV solumedrol, and 1 g IV Mg for improvement of wheezing and SOB. Will continue to reassess pt and monitor for symptomatic improvement. 09/14/18 17:41 CBC showed mildly elevated WBC 11.2; could still be inflammatory process vs viral/bacterial infectious process vs recent steroid use. Chest x-ray showed no acute pulmonary process. Scarring at L apex (pt had TB ~ 30 years ago and has had recent negative tests). 09/14/18 17:48 Influenza negative. 18 18:26 CMP: elevations of AST/ALT compared to last visit. Pt recently started on simvastatin/HCTZ/trazodone, will inform [facility] of changes. No abdominal pain at this time. 09/14/18 18:31 ECG showed NSR, HR 96, normal intervals. TWIs V1,V2, present on prior ECG. 09/14/18 18:45 Pt much improved after nebulizer treatments, Mg, and solumedrol. Ambulatory saturation 96-98%. Calling [facility] to inform that liver enzymes elevated. Will also ask them to start her on z-pack x5 days to cover for atypicals. Strict return precautions provided with pt understanding. 09/14/18 18:49 *DC/Admit/Observation/Transfer Diagnosis at time of Disposition: COPD (chronic obstructive pulmonary disease) Qualifiers: COPD type: unspecified COPD Qualified Code(s): J44.9 - Chronic obstructive pulmonary disease, unspecified Asthma Qualifiers: Asthma severity: moderate Asthma persistence: unspecified Asthma complication type: with acute exacerbation Qualified Code(s): J45.901 - Unspecified asthma with (acute) exacerbation Cocaine dependence Qualifiers: Substance use status: uncomplicated Qualified Code(s): F14.20 - Cocaine dependence, uncomplicated - Discharge Dispostion Disposition: HALFWAY FACILITY Condition at time of disposition: Improved Decision to Admit order: No - Referrals Referrals: [facility] [place] [facility] [place] [Provider Group] - Patient Instructions Printed Discharge Instructions: DI for Asthma -- Adult Additional Instructions: You were seen in the ER today for cough and SOB. The results of your labs and imaging today were normal, except for elevated liver enzymes. Please follow-up with your primary care doctor within 1-2 days to discuss your visit and make sure your symptoms have improved. Please return to the ER if you have any worsening SOB, development of fevers or chills, loss of consciousness, inability to tolerate food or fluids, or any other concerns. Please take the z-pack (azithromycin 250 mg PO x5 days (6 tablets) at [facility]. - Post Discharge Activity
[2018-09-14] MEDS ORDERED: MAGNESIUM SULF 50% (8.12 MEQ/2 ML-1 GM VIAL) IVPB ONE (17:43)
[2018-09-14] MEDS ORDERED: methylPREDNISolone NA SUCC 125 MG/2 ML VIAL ONE (17:47)
[2018-09-14] MEDS ORDERED: MAGNESIUM 1GM/D5W - 1 GM/100 ML IVPB IVPB ONE (17:47)
[2018-09-14 18:27] LABS: ALBUMIN 3.5 g/dl (3.4-5.0); BILIRUBIN,TOTAL 0.1 mg/dL (0.2-1); BLOOD UREA NITROGEN 13 mg/dL (7-18); CALCIUM 8.8 mg/dL (8.5-10.1); CHLORIDE 105 mmol/L (98-107); CO2 28 mmol/L (21-32); CREATININE 0.6 mg/dL (0.55-1.3); GLUCOSE,RANDOM 96 mg/dL (74-106); SGPT/ALT 120 U/L (13-61); SODIUM 139 mmol/L (136-145); TOT PROT 7.1 g/dl (6.4-8.2)
[2018-09-14 18:28] LABS: ALK PHOS 156 U/L (45-117); ANION GAP 7 MMOL/L (8-16); POTASSIUM 4.3 mmol/L (3.5-5.1); SGOT/AST 59 U/L (15-37)
[2018-09-14] MEDS ORDERED: ALBUTEROL SO4 0.083% IH SOL 2.5 MG/3 ML VIAL.NEB. NEB SCH (20:00)
[2018-09-14] MEDS ORDERED: ALBUTEROL SO4 0.083% IH SOL 2.5 MG/3 ML VIAL.NEB. NEB ONE (20:18)
[2018-09-14 20:59] VITALS: BP 120/78; PULSE 94; TEMP 98.1
--- NOTE | 2018-09-15 15:48 | EKG ---
Test Reason : Blood Pressure : / mmHG Vent. Rate : 096 BPM Atrial Rate : 096 BPM P-R Int : 130 ms QRS Dur : 066 ms QT Int : 364 ms P-R-T Axes : 071 066 063 degrees QTc Int : 459 ms POOR DATA QUALITY, INTERPRETATION MAY BE ADVERSELY AFFECTED NORMAL SINUS RHYTHM POSSIBLE LEFT ATRIAL ENLARGEMENT JUNCTIONAL ST DEPRESSION, PROBABLY ABNORMAL ABNORMAL ECG WHEN COMPARED WITH ECG OF 05-SEP-2018 10:58, NO SIGNIFICANT CHANGE WAS FOUND Confirmed by JOE HANSON MD ([id number]) on 09/15/2018 3:48:30 PM Referred By: Confirmed By:JOE HANSON MD
== END 2018-09-14 20:53 | disposition other institution (70) ==
LOC: JER 16:03
PROC: 3E0F7GC Introduction of Other Therapeutic Substance into Respiratory Tract, Via Natural or Artificial Opening (ICD-10-PCS; principal; 2018-09-14)
PROC: 3E0F7GC Introduction of Other Therapeutic Substance into Respiratory Tract, Via Natural or Artificial Opening (ICD-10-PCS; 2018-09-14)
PROC: 3E0F7GC Introduction of Other Therapeutic Substance into Respiratory Tract, Via Natural or Artificial Opening (ICD-10-PCS; 2018-09-14)
DX: J44.1 Chronic obstructive pulmonary disease with (acute) exacerbation (principal); J45.901 Unspecified asthma with (acute) exacerbation
CPT/HCPCS: 36415; 71045-TC-FY; 80053; 83735; 84484; 85025; 87804; 93005; 93010; 99282-25; J7030

== ENCOUNTER 2018-09-15 19:21 | Inpatient (IN) | payer OTHER ==
--- NOTE | 2018-09-15 19:36 | PDOC ---
History of Present Illness - General Chief Complaint: Shortness of Breath Stated Complaint: SHORTNESS OF BREATH Time Seen by Provider: 09/15/18 19:36 History Source: Patient, Old Records Exam Limitations: No Limitations - History of Present Illness Initial Comments: HPI: 52 y/o female BIBEMS from [facility] Detox to [facility] ER complaining of shortness of breath. Pt states she feels like she is having trouble taking a deep breath. Endorses poor exertional tolerance. Denies fevers, chills, cough, noisy breathing, orthopnea, paroxysmal dyspnea, or lower extremity swelling. Symptoms began several days ago when pt first presenting to [facility] and have progressively worsened. Pt was evaluated by this department yesterday (2017), diagnosed with COPD exacerbation, and discharged back to [facility] with albuterol, prednisone, and azithromycin. Woke up this morning feeling worse. No relief from albuterol treatments. Per [facility] Note, pt was found to be 88% on room air. Was placed on NRB by EMS. During the interview, the pt was removed from NRB and found to desat to 90% on room air. Denies recent surgery, periods of immobilization, or personal and/or familial history of blood clots. Social Hx: - EtoH: Occasionally, none in past 48 hours - Tobacco: Daily smoker, stopped on 09/02/2018 - Street Drugs: Crack Cocaine Abuse Medical Hx: - HTN - Asthma vs COPD, managed with albuterol and symbicort - Anxiety - Depression Past History - Past Medical History Allergies/Adverse Reactions: Allergies Allergy/AdvReac Type Severity Reaction Status Date / Time No Known Allergies Allergy Verified 09/15/18 19:37 Home Medications: Ambulatory Orders Aclidinium [place] [Tudorza Pressair] 400 mcg IH DAILY 09/04/18 Albuterol Sulfate Inhaler - [Ventolin Hfa Inhaler -] 2 inh PO Q6H PRN 09/04/18 Budesonide/Formeterol Fumarate [SYMBICORT 160/4.5mcg -] 1 inh PO DAILY 09/04/18 Guaifenesin [Cough Syrup] 100 mg PO DAILY 09/04/18 Hydrochlorothiazide [Hctz -] 12.5 mg PO DAILY 09/04/18 Labetalol HCl 100 mg PO DAILY 09/04/18 Mirtazapine 30 mg PO DAILY 09/04/18 Multivitamins [Tab-A-Vit -] 1 tab PO DAILY 09/04/18 Nicotine Polacrilex [Nicotine Gum] 2 mg PO DAILY 09/04/18 Nifedipine [Procardia Xl] 30 mg PO DAILY 09/04/18 Sertraline HCl 50 mg PO DAILY 09/04/18 Simvastatin 20 mg PO DAILY 09/04/18 traZODone HCL [Trazodone HCl] 100 mg PO HS PRN 09/04/18 Anemia: No Asthma: Yes (ALBUTEROL) Cancer: No Cardiac Disorders: No CVA: No COPD: Yes (SYMBICORT) CHF: No Dementia: No Diabetes: No GI Disorders: No Disorders: No HTN: Yes (NIFEDIPINE) Hypercholesterolemia: Yes Liver Disease: No Seizures: No Thyroid Disease: No - Surgical History Abdominal Surgery: Yes (APPENDICITIS AT AGE 17) - Suicide/Smoking/Psychosocial Hx Smoking History: Current every day smoker Have you smoked in the past 12 months: Yes Number of Cigarettes Smoked Daily: 2 'Breaking Loose' booklet given: 09/04/18 Hx Alcohol Use: Yes (drinking since 15 yo,vodka a few pints daily) Drug/Substance Use Hx: Yes (cocaine since 16 yo,then crack since 23 yo) Substance Use Type: Alcohol, Cocaine Hx Substance Use Treatment: Yes (completed inpatient rehab in 1993) Review of Systems - Review of Systems Able to Perform ROS?: Yes Comments:: In addition to that documented in the HPI above, the additional ROS was obtained : Constitutional: Denies fevers or chills Eyes: Denies vision changes ENMT: Denies sore throat CV: Denies chest pain Resp: Per HPI GI: Denies vomiting or diarrhea : Denies painful urination MSK: Denies recent trauma Skin: Denies new rashes Neuro: Denies new numbness or tingling or weakness Endocrine: Denies polyuria Heme: Denies bleeding or bruising *Physical Exam - Physical Exam Comments: Constitutional: Well-developed, well-nourished, nontoxic female. Found sitting upright on edge of hospital bed. Alert and oriented x4. Answered all questions appropriately and completely. Only able to speak in brief, few word responses. Head: Normocephalic. No obvious external signs of trauma. Eyes: Sclerae white. EARS: Hearing grossly intact. NOSE: No nasal discharge. Neck: Supple, trachea is midline. Cardiovascular: Tachycardic rate and regular rhythm. No murmur, rubs, clicks, or gallops. Peripheral pulses: Radial pulses full. Respiratory: Tachypneic. Labored. Decreased breath sounds bilaterally. Equal chest rise and fall. No stridor, no wheezing, no rhonchi. Neuro: Alert and oriented. Moving all four extremities spontaneously. Gait normal. Skin: Warm, dry, and intact. Psych: Affect: tearful. Mood: concerned. ED Treatment Course - LABORATORY CBC & Chemistry Diagram: 09/15/18 21:20 09/15/18 21:20 Medical Decision Making - Medical Decision Making *Reviewed vital signs, nursing notes, and prior visit documentation (if available). 52 y/o female bounce back from [facility] with tachypnea and poor exertional tolerance. H/o of COPD/Asthma. On Prednisone and Azithromycin. Now requiring oxygen therapy. Low suspicion for CHF or PE. Concern for COPD exacerbation versus anxiety stemming from detox. Pt states she has not detoxed in several years. Ordered DuoNebs and decadron. Hypertensive on arrival, ordered home antihypertensive. CBC revealed leukocytosis to 22. Suspect this is secondary to prednisone therapy. CXR unremarkable for acute cardiopulmonary disease and unchanged from portable image obtained yesterday per ED wet read. Low suspicion for pneumonia. Ordered Rocephin. D-dimer not elevated. Low suspicion for PE. Troponin not elevated. Low suspicion for ACS. Continue to be concerned for acute COPD exacerbation. Continues to require supplemental oxygen therapy. 22:46 Microblog sent to [facility] for admission for acute COPD exacerbation with concern for new supplemental oxygen requirement. 23:14 In person consultation with resident Dr. Boone. Verbally appraised of the pts HPI, ED course, and current plan of management. Agrees to admit to med/surg on obs status. *DC/Admit/Observation/Transfer Diagnosis at time of Disposition: COPD (chronic obstructive pulmonary disease) Qualifiers: COPD type: COPD with acute exacerbation Qualified Code(s): J44.1 - Chronic obstructive pulmonary disease with (acute) exacerbation - Discharge Dispostion Condition at time of disposition: Fair Decision to Admit order: Yes - Referrals - Patient Instructions - Post Discharge Activity
[2018-09-15] MEDS ORDERED: ALBUTEROL SO4 2.5/IPRATROPIUM 0.5 INH SOL 3 ML VIAL.NEB. NEB ONE ×2 (19:52→19:55)
[2018-09-15] MEDS ORDERED: DEXAMETHASONE LIQUID 0.5 MG/5 ML 240 ML BULK BOTTLE PO ONE (20:10)
--- NOTE | 2018-09-15 20:11 | PDOC ---
Attending Attestation - HPI HPI: 09/15/18 21:02 The patient is a 52 year old female, with a significant past medical history of asthma, COPD, HTN, HLD, who presents to the emergency department with, worsening shortness of breath. Patient was recently evaluated in the ER and discharged on a z-pack. She denies recent fevers, chills, headache or dizziness. She denies recent nausea, vomit, diarrhea or constipation. She denies recent dysuria, frequency, urgency or hematuria. She denies recent chest pain, palpitations, or lower extremity swelling. Allergies: NKDA Past surgical history: Appendicitis Social history: Current everyday smoker (2 cigarettes/day), drinks alcohol and admits to cocaine use. - Physicial Exam PE: 09/15/18 21:03 GENERAL: Awake, alert, and fully oriented, in no acute distress HEAD: No signs of trauma EYES: PERRLA, EOMI, sclera anicteric, conjunctiva clear ENT: Auricles normal inspection, hearing grossly normal, nares patent, oropharynx clear without exudates. Moist mucosa NECK: Normal ROM, supple, no lymphadenopathy, JVD, or masses +LUNGS:Decreased breath sounds bilaterally. HEART: Regular rate and rhythm, normal S1 and S2, no murmurs, rubs or gallops ABDOMEN: Soft, nontender, normoactive bowel sounds. No guarding, no rebound. No masses EXTREMITIES: Normal range of motion, no edema. No clubbing or cyanosis. No cords, erythema, or tenderness NEUROLOGICAL: Cranial nerves II through XII grossly intact. Normal speech, normal gait SKIN: Warm, Dry, normal turgor, no rashes or lesions noted. <Vance Forrest - Last Filed: 09/15/18 21:02> - Resident Resident Name: Zia Buckley - ED Attending Attestation I have performed the following: I have examined & evaluated the patient, The case was reviewed & discussed with the resident, I agree w/resident's findings & plan - Medical Decision Making 09/15/18 21:18 CXR consistent with COPD 09/15/18 23:45 WBC 22; pt will be admitted for COPD exacerbation. She completed day 2 of zithromax; she will be treated with ceftriaxone here. <Belén Haddad - Last Filed: 12/22/18 23:45> Attestations - Attestations 09/15/18 21:03 Documentation prepared by Vance Forrest, acting as center medical director for Belén Haddad MD. <Vance Forrest - Last Filed: 09/15/18 21:02>
[2018-09-15 20:29] VITALS: BMI 27.4
[2018-09-15] MEDS ORDERED: DEXAMETHASONE SOD PHOSPHATE 10 MG/1 ML VIAL ONE (20:40)
[2018-09-15] MEDS ORDERED: NIFEdipine E.R. 30 MG TABLET (FP) ONE (20:40)
[2018-09-15] MEDS: NIFEdipine E.R. 90 MG TABLET (FP) PO SCH (20:43)
[2018-09-15 21:33] LABS: BASO % 0.4 % (0-2.0); EOS % 0.1 % (0-4.5); HEMATOCRIT 39.1 % (32.4-45.2); HEMOGLOBIN 13.5 GM/dL (10.7-15.3); LYMPH % 10.4 % (8-40); MCH 31.5 pg (25.7-33.7); MCHC 34.4 g/dl (32.0-36.0); MEAN CELL VOLUME 91.5 fl (80-96); MEAN PLT VOLUME 8.6 fl (7.5-11.1); NEUT % 82.1 % (42.8-82.8); PLATELET COUNT 283 K/MM3 (134-434); RBC 4.27 M/mm3 (3.60-5.2); RDW 15.6 % (11.6-15.6); WHITE BLOOD COUNT 22.6 K/mm3 (4.0-10.0)
[2018-09-15 22:13] LABS: ALBUMIN 3.9 g/dl (3.4-5.0); ALK PHOS 157 U/L (45-117); ANION GAP 6 MMOL/L (8-16); BILIRUBIN,TOTAL 0.1 mg/dL (0.2-1); BLOOD UREA NITROGEN 19 mg/dL (7-18); CALCIUM 8.9 mg/dL (8.5-10.1); CHLORIDE 103 mmol/L (98-107); CO2 29 mmol/L (21-32); CREATININE 0.6 mg/dL (0.55-1.3); GLUCOSE,RANDOM 94 mg/dL (74-106); LIPASE 118 U/L (73-393); POTASSIUM 4.3 mmol/L (3.5-5.1); SGOT/AST 47 U/L (15-37); SGPT/ALT 115 U/L (13-61); SODIUM 138 mmol/L (136-145); TOT PROT 7.9 g/dl (6.4-8.2)
[2018-09-15 22:21] LABS: MACROCYTOSIS 1+; PLATELET ESTIMATE ADEQUATE
[2018-09-15] MEDS ORDERED: CEFTRIAXONE 1 GM in DEXTROSE 5%-WATER - 50 ML IVPB ONE (22:58)
[2018-09-15] MEDS ORDERED: CEFTRIAXONE 1 GM/50 ML BAG ONE (23:29)
[2018-09-15] MEDS ORDERED: MAGNESIUM SULF 50% (8.12 MEQ/2 ML-1 GM VIAL) IVPB ONE (23:41)
[2018-09-15] MEDS ORDERED: AZITHROMYCIN IVPB 500 MG/250 ML BAG IVPB ONE (23:41)
[2018-09-15] MEDS ORDERED: ALBUTEROL SO4 0.083% IH SOL 2.5 MG/3 ML VIAL.NEB. NEB PRN (23:41)
[2018-09-15] MEDS ORDERED: MAGNESIUM 1GM/D5W - 2 GM/200 ML IVPB IVPB ONE (23:42)
[2018-09-16] MEDS ORDERED: ALBUTEROL SO4 2.5/IPRATROPIUM 0.5 INH SOL 3 ML VIAL.NEB. NEB ONE ×2 (00:15)
[2018-09-16] MEDS ORDERED: AZITHROMYCIN IVPB 500 MG/250 ML BAG IVPB ONE (00:16)
--- NOTE | 2018-09-16 00:31 | PN ---
Teaching Attending Note Name of Resident: Vinayak Boone ATTENDING PHYSICIAN STATEMENT I saw and evaluated the patient. I reviewed the resident's note and discussed the case with the resident. I agree with the resident's findings and plan as documented. SUBJECTIVE: Patient is 52 year old woman with history of COPD, hypertension, HLD, tobacco use, cocaine and crack use from [facility] Detox to [facility] ER complaining of shortness of breath. She feels like she is having trouble taking a deep breath and has poor exertional tolerance. Denies fevers, chills, cough, noisy breathing, orthopnea, paroxysmal dyspnea, or lower extremity swelling. Symptoms began several days ago when pt first presenting to [facility] and have progressively worsened. Patient was evaluated by in the ER yesterday (09/14/2018 ), diagnosed with COPD exacerbation, and discharged to [facility] with albuterol , prednisone, and azithromycin. Woke up this morning feeling worse. No relief from albuterol treatments. Per [facility] Note, she was found to be 88% on room air. Has a nonproductive cough. OBJECTIVE: Alert and respiratory distress Vital Signs Period Temp Pulse Resp BP Sys/Weiner Pulse Ox Last 24 Hr 95.1 F-99.4 F 95-117 22-24 139-178/96-100 99-100 HEENT: No Jaundice, eye redness or discharge, PERRLA, EOMI. Normocephalic, atraumatic. External ears are normal and hearing is grossly intact. No nasal discharge. Neck: Supple, nontender. No palpable adenopathy or thyromegaly. No JVD Chest: Good effort. Diminished breath sounds. Prolonged expiration but no wheezing. Clear to percussion. Heart: Regular. No S3, rub or murmur Abdomen: Not distended, soft, nontender and no HSM. No rebound or guarding. Normoactive bowel sounds. Ext: Peripheral pulses intact. No leg edema. Skin: Warm and dry. No petechiae, rash or ecchymosis. Neuro: Alert. Oriented x3. CN 2-12 grossly intact. Sensation grossly intact in all four extremities and DTR are symmetric. Current Medications Generic Name Dose Route Start Last Admin Trade Name Freq PRN Reason Stop Dose Admin Albuterol Sulfate 1 amp 09/15/18 23:41 Ventolin 0.083% Nebulizer Soln - NEB RQ4H PRN Dyspnea Albuterol/Ipratropium 1 amp 09/16/18 08:00 Duoneb - NEB RQID BETH Budesonide/Formoterol Fumarate 2 puff 09/15/18 23:45 Symbicort 160/4.5mcg - IH BID BETH Enoxaparin Sodium 40 mg 09/16/18 10:00 Lovenox - SQ DAILY [facility] Azithromycin 500 mg in 250 mls @ 250 mls/hr 09/15/18 23:41 09/16/18 00:32 Zithromax 500mg Ivpb (Pre-Docked) IVPB 09/16/18 00:40 250 mls/hr ONCE ONE Administration Methylprednisolone Sodium Succinate 60 mg 09/16/18 06:00 Solu-Medrol - IVPUSH TID BETH Nifedipine 90 mg 09/15/18 20:15 09/15/18 20:43 Procardia Xl - PO 90 mg DAILY [facility] Administration Home Medications Medication Instructions Recorded Aclidinium [place] [Tudorza 400 mcg IH DAILY 09/04/18 Pressair] Albuterol Sulfate Inhaler - 2 inh PO Q6H PRN 09/04/18 [Ventolin Hfa Inhaler -] Budesonide/Formeterol Fumarate 1 inh PO DAILY 09/04/18 [SYMBICORT 160/4.5mcg -] Guaifenesin [Cough Syrup] 100 mg PO DAILY 09/04/18 Hydrochlorothiazide [Hctz -] 12.5 mg PO DAILY 09/04/18 Labetalol HCl 100 mg PO DAILY 09/04/18 Mirtazapine 30 mg PO DAILY 09/04/18 Multivitamins [Tab-A-Vit -] 1 tab PO DAILY 09/04/18 Nicotine Polacrilex [Nicotine Gum] 2 mg PO DAILY 09/04/18 Nifedipine [Procardia Xl] 30 mg PO DAILY 09/04/18 Sertraline HCl 50 mg PO DAILY 09/04/18 Simvastatin 20 mg PO DAILY 09/04/18 traZODone HCL [Trazodone HCl] 100 mg PO HS PRN 09/04/18 Abnormal Lab Results 09/15/18 09/15/18 21:20 21:20 WBC 22.6 H Absolute Neuts (auto) 18.6 H Anion Gap 6 L BUN 19 H Total Bilirubin 0.1 L AST 47 H ALT 115 H Alkaline Phosphatase 157 H ASSESSMENT AND PLAN: 1. COPD exacerbation - CXR shows hyperinflation but no acute infiltrate. May have underling interstitial lung disease due to chronic recurrent inflammation from illicit drug use. Will treat with solumedrol, duoneb, MgSO4, oxygen, symbicort, rocephin and azithromycin. Pulmonary consult and PFTs when stable. Get ECHO. Patient counseled to stop using illicit drugs. Return to Detox when stable. 2. Tobacco Use We will provide patient all the necessary assistance to facilitate smoking cessation and prescribe Nicotine patch. 3. DVT prophylaxis - Lovenox 40 mg SQ q 24 hours. 4. Advance directives - Full code
--- NOTE | 2018-09-16 00:34 | HP ---
CHIEF COMPLAINT: sob and cough PCP: n/a HISTORY OF PRESENT ILLNESS: Patient is a 52 yo F with a PMHx of polysubstance abuse (crack/cocaine), anxiety, depression, COPD, HTN, BIBA from [facility] ( detox) with SOB and dry cough that started a few days ago. She says she has more difficulty breathing on exertion. She was saturating 88% on RA at [facility]. Patient presented to the ED yesterday for the same thing and was diagnosed with COPD exacerbation. She was discharged on albuterol, azithromycin , prednisone. Patient denies fevers, chills, nausea, vomiting, abdominal pain, diarrhea, lightheadedness. Patient said she had a similar event 4 months ago and was admitted for COPD exacerbation at another hospital for 4 days. ER course was notable for: (1) WBC 22.6 (2) CXR unremarkable Recent Travel: denies PAST MEDICAL HISTORY: per hpi Social History: Smoking: says she quit on 09/02. Smoked 2 ciggarettes a day. Alcohol: occasional Drugs: crack/cocaine Family History: Allergies No Known Allergies Allergy (Verified 09/15/18 19:37) HOME MEDICATIONS: Home Medications Medication Instructions Recorded Aclidinium [place] [Tudorza 400 mcg IH DAILY 09/04/18 Pressair] Albuterol Sulfate Inhaler - 2 inh PO Q6H PRN 09/04/18 [Ventolin Hfa Inhaler -] Budesonide/Formeterol Fumarate 1 inh PO DAILY 09/04/18 [SYMBICORT 160/4.5mcg -] Guaifenesin [Cough Syrup] 100 mg PO DAILY 09/04/18 Hydrochlorothiazide [Hctz -] 12.5 mg PO DAILY 09/04/18 Labetalol HCl 100 mg PO DAILY 09/04/18 Mirtazapine 30 mg PO DAILY 09/04/18 Multivitamins [Tab-A-Vit -] 1 tab PO DAILY 09/04/18 Nicotine Polacrilex [Nicotine Gum] 2 mg PO DAILY 09/04/18 Nifedipine [Procardia Xl] 30 mg PO DAILY 09/04/18 Sertraline HCl 50 mg PO DAILY 09/04/18 Simvastatin 20 mg PO DAILY 09/04/18 traZODone HCL [Trazodone HCl] 100 mg PO HS PRN 09/04/18 REVIEW OF SYSTEMS CONSTITUTIONAL: Absent: fever, chills, diaphoresis, generalized weakness, malaise, loss of appetite, weight change HEENT: Absent: rhinorrhea, nasal congestion, throat pain, throat swelling, difficulty swallowing, mouth swelling, ear pain, eye pain, visual changes CARDIOVASCULAR: Absent: chest pain, syncope, palpitations, irregular heart rate, lightheadedness , peripheral edema RESPIRATORY: cough, sob, dyspnea with exertion Absent: orthopnea, wheezing, stridor, hemoptysis GASTROINTESTINAL: Absent: abdominal pain, abdominal distension, nausea, vomiting, diarrhea, constipation, melena, hematochezia GENITOURINARY: Absent: dysuria, frequency, urgency, hesitancy, hematuria, flank pain, genital pain MUSCULOSKELETAL: Absent: myalgia, arthralgia, joint swelling, back pain, neck pain SKIN: Absent: rash, itching, pallor HEMATOLOGIC/IMMUNOLOGIC: Absent: easy bleeding, easy bruising, lymphadenopathy, frequent infections ENDOCRINE: Absent: unexplained weight gain, unexplained weight loss, heat intolerance, cold intolerance NEUROLOGIC: Absent: headache, focal weakness or paresthesias, dizziness, unsteady gait, seizure, mental status changes, bladder or bowel incontinence PSYCHIATRIC: Absent: anxiety, depression, suicidal or homicidal ideation, hallucinations. PHYSICAL EXAMINATION Vital Signs - 24 hr 09/15/18 09/15/18 09/15/18 19:21 19:45 22:41 Temperature 95.1 F L 99.4 F Pulse Rate 117 H Pulse Rate [ 96 H 95 H Left Radial] Respiratory 24 H 24 H 22 H Rate Blood Pressure 178/100 H Blood Pressure 139/96 [Left Arm] O2 Sat by Pulse 99 100 100 Oximetry (%) GENERAL: A/o x 3, mildy dyspneic HEAD: Normal with no signs of trauma. EYES: Pupils equal, round and reactive to light, extraocular movements intac EARS, NOSE, THROAT: oropharynx clear without exudates. Moist mucous membranes. NECK:supple without lymphadenopathy, JVD, or masses. LUNGS: Diminished breath sounds. Prolonged expiration. No wheezing HEART: Regular rate and rhythm, normal S1 and S2 without murmur, rub or gallop. ABDOMEN: obese, Soft, nontender, not distended, normoactive bowel sounds LOWER EXTREMITIES: 2+ pulses, No peripheral edema. NEUROLOGICAL: Cranial nerves II-XII intact. Normal speech. Laboratory Results - last 24 hr 09/15/18 09/15/18 09/15/18 19:45 19:45 21:20 WBC 22.6 H RBC 4.27 Hgb 13.5 Hct 39.1 MCV 91.5 MCH 31.5 MCHC 34.4 RDW 15.6 Plt Count 283 MPV 8.6 Absolute Neuts (auto) 18.6 H Total Counted 100 Neutrophils % 82.1 Neutrophils % (Manual) 82.0 Band Neutrophils % 2.0 Lymphocytes % 10.4 Lymphocytes % (Manual) 11.0 Monocytes % 7.0 Monocytes % (Manual) 5 Eosinophils % 0.1 Basophils % 0.4 Nucleated RBC % 0 Differential Comment Man diff performed Platelet Estimate Adequate Platelet Comment Polychromasia 1+ Macrocytosis 1+ D-Dimer 235 Sodium Potassium Chloride Carbon Dioxide Anion Gap BUN Creatinine Creat Clearance w eGFR Random Glucose Calcium Total Bilirubin AST ALT Alkaline Phosphatase Troponin I < 0.02 Total Protein Albumin Lipase 09/15/18 21:20 WBC RBC Hgb Hct MCV MCH MCHC RDW Plt Count MPV Absolute Neuts (auto) Total Counted Neutrophils % Neutrophils % (Manual) Band Neutrophils % Lymphocytes % Lymphocytes % (Manual) Monocytes % Monocytes % (Manual) Eosinophils % Basophils % Nucleated RBC % Differential Comment Platelet Estimate Platelet Comment Polychromasia Macrocytosis D-Dimer Sodium 138 Potassium 4.3 Chloride 103 Carbon Dioxide 29 Anion Gap 6 L BUN 19 H Creatinine 0.6 Creat Clearance w eGFR > 60 Random Glucose 94 Calcium 8.9 Total Bilirubin 0.1 L AST 47 H ALT 115 H Alkaline Phosphatase 157 H Troponin I Total Protein 7.9 Albumin 3.9 Lipase 118 ASSESSMENT/PLAN: 52 yo F with a PMHx of polysubstance abuse (crack/cocaine), anxiety, depression , COPD, HTN, BIBA from [facility] (detox) with SOB and dry cough #SOB/Cough -likely COPD exacerbation -hx of COPD -duonebs qid -albuterol prn -medrol 60 q8h -CXR unremarkable -IV abx: Ceftriaxone x 1 in ED. -Azithromycin started yesterday. Give 1x dose now. -ABG -Echo -CXR unremarkable -bcx, urine cultures -symbicort -magnesium 2mg #Leukocytosis -Likely reactive to prednisone use #HTN -cont. home meds -Med rec needed #Anxiety/Depression -Med rec #FEN -No iv fluids -monitor -sodium diet #DVT ppx -lovenox 40mg sq Dispo: obs Visit type - Emergency Visit Emergency Visit: Yes ED Registration Date: 09/15/18 Care time: The patient presented to the Emergency Department on the above date and was hospitalized for further evaluation of their emergent condition. - New Patient This patient is new to me today: Yes Date on this admission: 09/16/18 - Critical Care Critical Care patient: No
[2018-09-16] MEDS: BUDESONIDE/FORMETEROL FUMARATE 160/4.5 mcg INHALER IH SCH ×3 (01:16→22:08)
[2018-09-16] MEDS ORDERED: methylPREDNISolone NA SUCC 40 MG/1 ML VIAL IVPUSH SCH (06:00)
[2018-09-16 07:00] LABS: ARTERIAL BLD GAS O2 SATURATION 77.8 % (90-98.9); ARTERIAL BLOOD GAS BASE EXCESS 3.7 meq/l (-2-2); ARTERIAL BLOOD GAS PCO2 53.8 mmHg (35-45); ARTERIAL BLOOD GAS pH 7.36 (7.35-7.45); CARBOXYHEMOGLOBIN 0.6 gm% (0.5-2.0)
[2018-09-16 07:06] LABS: ALLENS TEST POSITIVE
[2018-09-16 07:10] LABS: ARTERIAL BLOOD GAS PO2 46.7 mmHg (80-100)
[2018-09-16 07:15] LABS: BASO % 0.2 % (0-2.0); HEMATOCRIT 37.2 % (32.4-45.2); LYMPH % 8.7 % (8-40); MCH 29.9 pg (25.7-33.7); MCHC 32.4 g/dl (32.0-36.0); MEAN CELL VOLUME 92.3 fl (80-96); MEAN PLT VOLUME 8.5 fl (7.5-11.1); MONO % 5.8 % (3.8-10.2); NEUT % 85.3 % (42.8-82.8); PLATELET COUNT 265 K/MM3 (134-434); RBC 4.03 M/mm3 (3.60-5.2); RDW 15.2 % (11.6-15.6); WHITE BLOOD COUNT 18.4 K/mm3 (4.0-10.0)
[2018-09-16] MEDS: ALBUTEROL SO4 2.5/IPRATROPIUM 0.5 INH SOL 3 ML VIAL.NEB. NEB SCH ×4 (07:45→19:43)
[2018-09-16 08:50] LABS: ALBUMIN 3.3 g/dl (3.4-5.0); ALK PHOS 132 U/L (45-117); ANION GAP 8 MMOL/L (8-16); BILIRUBIN,TOTAL 0.1 mg/dL (0.2-1); BLOOD UREA NITROGEN 23 mg/dL (7-18); CALCIUM 8.6 mg/dL (8.5-10.1); CHLORIDE 102 mmol/L (98-107); CO2 28 mmol/L (21-32); CREATININE 0.7 mg/dL (0.55-1.3); GLUCOSE,RANDOM 113 mg/dL (74-106); MAGNESIUM 2.7 mg/dL (1.8-2.4); PHOSPHOROUS 3.7 mg/dL (2.5-4.9); POTASSIUM 4.3 mmol/L (3.5-5.1); SGOT/AST 33 U/L (15-37); SGPT/ALT 98 U/L (13-61); SODIUM 138 mmol/L (136-145); TOT PROT 6.8 g/dl (6.4-8.2)
[2018-09-16] MEDS ORDERED: PT OWN MED DRAWER 7, Y5N ONE (09:11)
[2018-09-16] MEDS: HYDROCHLOROTHIAZIDE 12.5 MG CAPSULE (FP) PO SCH (09:20)
[2018-09-16] MEDS: LABETALOL HCL 100 MG TABLET (FP) PO SCH (09:20)
[2018-09-16] MEDS: ENOXAPARIN NA (PORCINE) 40 MG/0.4 ML DISP.SYRIN SQ SCH (09:20)
[2018-09-16] MEDS ORDERED: ACETAMINOPHEN 650 MG/20.3 ML ORAL SOLUTION (CUPS) PO PRN (10:44)
--- NOTE | 2018-09-16 10:44 | CON.PULM ---
Consult Consult Specialty:: PULMONARY Referred by:: Dr. Brice Reason for Consultation:: shortness of breath - History of Present Illness Chief Complaint: shortness of breath History of Present Illness: 52yo female with h/o HTN, COPD, polysubstance abuse, anxiety/depression who was sent from [facility] for worsening shortness of breath. Denies chest pain or discomfort but with tightness. No fevers, chills or sweats. +cough productive initially with green sputum now nonproductive. Also with significant wheezing. Maintained at home on Symbicort and Tudorza. She is a long time smoker, currently about 5 cigarettes/day. - History Source History Provided By: Patient, Medical Record Limitations to Obtaining History: No Limitations - Past Medical History Cardio/Vascular: Yes: HTN Pulmonary: Yes: COPD ...LMP Comment: more than a year and a half ago ...: No - Alcohol/Substance Use Hx Alcohol Use: Yes (drinking since 15 yo,vodka a few pints daily) - Smoking History Smoking history: Current every day smoker Have you smoked in the past 12 months: Yes Aproximately how many cigarettes per day: 2 Home Medications - Allergies Allergies/Adverse Reactions: Allergies Allergy/AdvReac Type Severity Reaction Status Date / Time No Known Allergies Allergy Verified 09/15/18 19:37 - Home Medications Home Medications: Ambulatory Orders Aclidinium [place] [Tudorza Pressair] 400 mcg IH DAILY 09/04/18 Albuterol Sulfate Inhaler - [Ventolin Hfa Inhaler -] 2 inh PO Q6H PRN 09/04/18 Budesonide/Formeterol Fumarate [SYMBICORT 160/4.5mcg -] 1 inh PO DAILY 09/04/18 Guaifenesin [Cough Syrup] 100 mg PO DAILY 09/04/18 Hydrochlorothiazide [Hctz -] 12.5 mg PO DAILY 09/04/18 Labetalol HCl 100 mg PO DAILY 09/04/18 Mirtazapine 30 mg PO DAILY 09/04/18 Multivitamins [Tab-A-Vit -] 1 tab PO DAILY 09/04/18 Nicotine Polacrilex [Nicotine Gum] 2 mg PO DAILY 09/04/18 Nifedipine [Procardia Xl] 30 mg PO DAILY 09/04/18 Sertraline HCl 50 mg PO DAILY 09/04/18 Simvastatin 20 mg PO DAILY 09/04/18 traZODone HCL [Trazodone HCl] 100 mg PO HS PRN 09/04/18 Prednisone [Deltasone] 20 mg PO 09/16/18 Family Disease History - Family Disease History Family Disease History: Heart Disease: Father (HTN, ), Mother Review of Systems - Review of Systems Constitutional: reports: Weakness. denies: Chills, Fever Eyes: denies: Recent Change in Vision HENT: denies: Nasal Congestion, Throat Pain Neck: denies: Stiffness, Tenderness Cardiovascular: reports: Shortness of Breath. denies: Chest Pain, Edema, Palpitations Respiratory: reports: Cough, Exercise Intolerance, SOB on Exertion, Wheezing. denies: Hemoptysis Gastrointestinal: denies: Abdominal Pain, Nausea, Vomiting Genitourinary: denies: Dysuria, Hematuria Neurological: denies: Dizziness, Headache Endocrine: denies: Unexplained Weight Loss Physical Exam Vital Sings: Vital Signs Temperature 98 F 09/16/18 09:28 Pulse Rate 108 H 09/16/18 09:28 Respiratory Rate 24 H 09/16/18 09:28 Blood Pressure 120/69 09/16/18 09:28 O2 Sat by Pulse Oximetry (%) 99 09/16/18 04:23 Constitutional: Yes: Anxious Eyes: Yes: Conjunctiva Clear, EOM Intact HENT: Yes: Atraumatic, Normocephalic Neck: Yes: Supple, Trachea Midline Cardiovascular: Yes: Regular Rate and Rhythm Respiratory: Yes: Poor Air Entry, Rhonchi ...Clubbing: No Gastrointestinal: Yes: Normal Bowel Sounds, Soft. No: Tenderness Edema: No Neurological: Yes: Alert, Oriented Labs: CBC, BMP 09/16/18 06:00 09/16/18 06:00 ABG Results ABG pH 7.36 (7.35-7.45) 09/16/18 06:00 ABG pCO2 at Pt Temp 53.8 mmHg (35-45) H 09/16/18 06:00 ABG pO2 at Pt Temp 46.7 mmHg (80-100) L* 09/16/18 06:00 ABG HCO3 29.8 meq/L (22-26) H 09/16/18 06:00 ABG O2 Sat (Measured) 77.8 % (90-98.9) L 09/16/18 06:00 ABG O2 Content 14.3 % vol (15-22) L 09/16/18 06:00 ABG Base Excess 3.7 meq/l (-2-2) H 09/16/18 06:00 Imaging - Results Chest X-ray: Report Reviewed, Image Reviewed (no infiltrates) Problem List - Problems (1) COPD exacerbation Code(s): J44.1 - CHRONIC OBSTRUCTIVE PULMONARY DISEASE W (ACUTE) EXACERBATION (2) Acute bronchitis Code(s): J20.9 - ACUTE BRONCHITIS, UNSPECIFIED (3) Anxiety Code(s): F41.9 - ANXIETY DISORDER, UNSPECIFIED (4) Nicotine dependence Code(s): F17.200 - NICOTINE DEPENDENCE, UNSPECIFIED, UNCOMPLICATED Qualifiers: Nicotine product type: cigarettes Substance use status: uncomplicated Qualified Code(s): F17.210 - Nicotine dependence, cigarettes, uncomplicated (5) Hypertension Code(s): I10 - ESSENTIAL (PRIMARY) HYPERTENSION Assessment/Plan Acute COPD Exacerbation Acute Bronchitis HTN Polysubstance Abuse Smoker - IV medrol - inhaled bronchodilators standing and PRN - antibiotics - O2 to keep Spo2 >90% - smoking cessation - outpt PFTs - DVT prophylaxis Thank you for this consult Lalo Patel MD
[2018-09-16] MEDS: NIFEdipine E.R. 90 MG TABLET (FP) PO SCH (12:37)
[2018-09-16 12:38] LABS: ANISOCYTOSIS 1+; MACROCYTOSIS 0; PLATELET ESTIMATE NORMAL
[2018-09-16] MEDS: methylPREDNISolone NA SUCC 40 MG/1 ML VIAL IVPUSH SCH ×2 (14:30→22:04)
--- NOTE | 2018-09-16 18:26 | PN ---
Progress Note (short form) - Note Progress Note: SUBJECTIVE Still feels SOB, worse on laying flat and on exertion. Cough productive of greenish sputum - no hemoptysis. No chest pain. OBJECTIVE Afebrile, Hemodynamically Stable. SpO2 99% on #L via NC. Mild dyspnea. Last Vital Signs Temp Pulse Resp BP Pulse Ox 98.6 F 99 H 20 131/85 99 09/16/18 17:18 09/16/18 17:18 09/16/18 17:18 09/16/18 17:18 09/16/18 09:00 HEENT -Atraumatic, Normocephalic Heart - S1, S2, RRR Lungs - bilateral wheeze Abdomen - Soft, non-tender. Bowel Sound normal. Extremities - no calf swelling/tenderness. Laboratory Results - last 24 hr 09/15/18 09/15/18 09/15/18 19:45 19:45 21:20 WBC 22.6 H RBC 4.27 Hgb 13.5 Hct 39.1 MCV 91.5 MCH 31.5 MCHC 34.4 RDW 15.6 Plt Count 283 MPV 8.6 Absolute Neuts (auto) 18.6 H Total Counted 100 Neutrophils % 82.1 Neutrophils % (Manual) 82.0 Band Neutrophils % 2.0 Lymphocytes % 10.4 Lymphocytes % (Manual) 11.0 Monocytes % 7.0 Monocytes % (Manual) 5 Eosinophils % 0.1 Eosinophils % (Manual) Basophils % 0.4 Basophils % (Manual) Myelocytes % (Man) Promyelocytes % (Man) Blast Cells % (Manual) Nucleated RBC % 0 Metamyelocytes Differential Comment Man diff performed Hypochromia Platelet Estimate Adequate Platelet Comment Polychromasia 1+ Poikilocytosis Basophilic Stippling Anisocytosis Microcytosis Macrocytosis 1+ D-Dimer 235 Anticoagulation Therapy Puncture Site ABG pH ABG pCO2 at Pt Temp ABG pO2 at Pt Temp ABG HCO3 ABG O2 Sat (Measured) ABG O2 Content ABG Base Excess Chris Test Carboxyhemoglobin Methemoglobin O2 Delivery Device Oxygen Flow Rate Vent Mode Vent Rate Mechanical Rate Pressure Support Vent Sodium Potassium Chloride Carbon Dioxide Anion Gap BUN Creatinine Creat Clearance w eGFR Random Glucose Calcium Phosphorus Magnesium Total Bilirubin AST ALT Alkaline Phosphatase Troponin I < 0.02 Total Protein Albumin Lipase 09/15/18 09/16/18 09/16/18 21:20 06:00 06:00 WBC 18.4 H RBC 4.03 Hgb 12.0 Hct 37.2 MCV 92.3 MCH 29.9 MCHC 32.4 RDW 15.2 Plt Count 265 MPV 8.5 Absolute Neuts (auto) 15.7 H Total Counted Neutrophils % 85.3 H Neutrophils % (Manual) 79.8 Band Neutrophils % 9.1 Lymphocytes % 8.7 Lymphocytes % (Manual) 5.1 L D Monocytes % 5.8 Monocytes % (Manual) 4 Eosinophils % 0.0 D Eosinophils % (Manual) 0.0 Basophils % 0.2 Basophils % (Manual) 0.0 Myelocytes % (Man) 0 Promyelocytes % (Man) 0 Blast Cells % (Manual) 0 Nucleated RBC % 0 Metamyelocytes 0 Differential Comment Hypochromia 0 Platelet Estimate Normal Platelet Comment Present Polychromasia 1+ Poikilocytosis 0 Basophilic Stippling 1+ Anisocytosis 1+ Microcytosis 1+ Macrocytosis 0 D-Dimer Anticoagulation Therapy No Result Required. Puncture Site Right radial ABG pH 7.36 ABG pCO2 at Pt Temp 53.8 H ABG pO2 at Pt Temp 46.7 L* ABG HCO3 29.8 H ABG O2 Sat (Measured) 77.8 L ABG O2 Content 14.3 L ABG Base Excess 3.7 H Chris Test Positive Carboxyhemoglobin 0.6 Methemoglobin 0.2 L O2 Delivery Device Nasal o2 Oxygen Flow Rate 3l Vent Mode No Result Required. Vent Rate No Result Required. Mechanical Rate No Result Required. Pressure Support Vent No Result Required. Sodium 138 Potassium 4.3 Chloride 103 Carbon Dioxide 29 Anion Gap 6 L BUN 19 H Creatinine 0.6 Creat Clearance w eGFR > 60 Random Glucose 94 Calcium 8.9 Phosphorus Magnesium Total Bilirubin 0.1 L AST 47 H ALT 115 H Alkaline Phosphatase 157 H Troponin I Total Protein 7.9 Albumin 3.9 Lipase 118 09/16/18 06:00 WBC RBC Hgb Hct MCV MCH MCHC RDW Plt Count MPV Absolute Neuts (auto) Total Counted Neutrophils % Neutrophils % (Manual) Band Neutrophils % Lymphocytes % Lymphocytes % (Manual) Monocytes % Monocytes % (Manual) Eosinophils % Eosinophils % (Manual) Basophils % Basophils % (Manual) Myelocytes % (Man) Promyelocytes % (Man) Blast Cells % (Manual) Nucleated RBC % Metamyelocytes Differential Comment Hypochromia Platelet Estimate Platelet Comment Polychromasia Poikilocytosis Basophilic Stippling Anisocytosis Microcytosis Macrocytosis D-Dimer Anticoagulation Therapy Puncture Site ABG pH ABG pCO2 at Pt Temp ABG pO2 at Pt Temp ABG HCO3 ABG O2 Sat (Measured) ABG O2 Content ABG Base Excess Chris Test Carboxyhemoglobin Methemoglobin O2 Delivery Device Oxygen Flow Rate Vent Mode Vent Rate Mechanical Rate Pressure Support Vent Sodium 138 Potassium 4.3 Chloride 102 Carbon Dioxide 28 Anion Gap 8 BUN 23 H Creatinine 0.7 Creat Clearance w eGFR > 60 Random Glucose 113 H Calcium 8.6 Phosphorus 3.7 Magnesium 2.7 H Total Bilirubin 0.1 L AST 33 ALT 98 H Alkaline Phosphatase 132 H Troponin I Total Protein 6.8 Albumin 3.3 L Lipase Current Medications Generic Name Dose Route Start Last Admin Trade Name Freq PRN Reason Stop Dose Admin Acetaminophen 650 mg 09/16/18 10:44 Tylenol Oral Solution - PO Q6H PRN FEVER Albuterol Sulfate 1 amp 09/15/18 23:41 Ventolin 0.083% Nebulizer Soln - NEB RQ4H PRN Dyspnea Albuterol/Ipratropium 1 amp 09/16/18 08:00 09/16/18 16:20 Duoneb - NEB 1 amp RQID BETH Administration Atorvastatin Calcium 10 mg 09/16/18 22:00 Lipitor - PO HS BETH Budesonide/Formoterol Fumarate 2 puff 09/15/18 23:45 09/16/18 09:20 Symbicort 160/4.5mcg - IH 2 puff BID BETH Administration Enoxaparin Sodium 40 mg 09/16/18 10:00 09/16/18 09:20 Lovenox - SQ 40 mg DAILY BETH Administration Hydrochlorothiazide 12.5 mg 09/16/18 10:00 09/16/18 09:20 Hctz - PO 12.5 mg DAILY BETH Administration Azithromycin 500 mg/ Dextrose 250 mls @ 250 mls/hr 09/17/18 06:00 IVPB DAILY BETH Labetalol HCl 100 mg 09/16/18 10:00 09/16/18 09:20 Normodyne - PO 100 mg DAILY BETH Administration Methylprednisolone Sodium Succinate 60 mg 09/16/18 14:00 09/16/18 14:30 Solu-Medrol - IVPUSH 60 mg Q8H BEHT Administration Nifedipine 90 mg 09/15/18 20:15 09/16/18 12:37 Procardia Xl - PO Not Given DAILY B[facility] ASSESSMENT/PLAN 52 year old female with history of COPD, Depression/Anxiety, HTN, HLD, Polysubstance Abuse (Alcohol, Cocaine, Tobacco), sent from [facility] due to increasing dyspnea for 3-4 days with SpO2 88% on RA reported at [facility]. She refers cough productive of green sputum. No fevers/chills/sweats. No chest pain/ palpitations. She was apparently on outpatient management with nebs, prednisone and azithromycin for 1 day prior to ED presentation. 1. Acute Hypoxic Respiratory Failure secondary to Acute Exacerbation COPD SpO2 reported 88% on RA CXR - no infiltrate DDIMER neg, no chest pain Leukocytosis - possibly sec to out-patient steroid use. No evidence of Pneumonia. Afebrile. Will continue DuoNebs, IV Solumedrol, Azithromycin, supplemental O2 to maintain SpO2 > 90%. Normally maintained on Symbicort and Tudorza. Pulmonary Consulted. Will get Echo to assess for other causes for SOB sandra given Alcohol and Cocaine use. 2. HTN - Continue Nifedipine, HCTZ, Labetolol 3. Depression/Anxiety - continue Mirtazapine and Sertraline. 4. HLD - Continue Statin 5. Polysubstance Abuse - Cocaine, Alcohol, Tobacco Counselled re:Tobacco use Recently at [facility]. Denies recent substance use Will monitor for withdrawals. MVI, Thiamine, Folate 6. Elevated Transaminases - trending down Abdominal US - Large Liver, cholelithiasis Hepatitis Panel pending Will monitor. DVT Px - Lovenox SQ Visit type - Emergency Visit Emergency Visit: Yes ED Registration Date: 09/15/18 Care time: The patient presented to the Emergency Department on the above date and was hospitalized for further evaluation of their emergent condition. - New Patient This patient is new to me today: Yes Date on this admission: 09/16/18 - Critical Care Critical Care patient: No - Discharge Referral Referred to [facility] Med P.C.: No
[2018-09-16] MEDS: ATORVASTATIN CA 10 MG TABLET (FP) PO SCH (22:05)
[2018-09-17] MEDS: AZITHROMYCIN IVPB 500 MG/250 ML BAG IVPB SCH (05:48)
[2018-09-17] MEDS: methylPREDNISolone NA SUCC 40 MG/1 ML VIAL IVPUSH SCH ×3 (05:48→21:11)
[2018-09-17] MEDS ORDERED: AZITHROMYCIN IVPB 500 MG in DEXTROSE 5%-WATER - 250 ML IVPB SCH (06:00)
--- NOTE | 2018-09-17 07:17 | EKG ---
Test Reason : Blood Pressure : / mmHG Vent. Rate : 107 BPM Atrial Rate : 107 BPM P-R Int : 096 ms QRS Dur : 072 ms QT Int : 348 ms P-R-T Axes : 051 072 048 degrees QTc Int : 464 ms POOR DATA QUALITY, INTERPRETATION MAY BE ADVERSELY AFFECTED SINUS TACHYCARDIA WITH SHORT IA OTHERWISE NORMAL ECG WHEN COMPARED WITH ECG OF 14-SEP-2018 18:38, NO SIGNIFICANT CHANGE WAS FOUND Confirmed by JOE HANSON MD ([id number]) on 09/17/2018 7:16:55 AM Referred By: Confirmed By:JOE HANSON MD
[2018-09-17] MEDS: ALBUTEROL SO4 2.5/IPRATROPIUM 0.5 INH SOL 3 ML VIAL.NEB. NEB SCH ×4 (07:50→21:05)
[2018-09-17 08:32] LABS: ALBUMIN 3.4 g/dl (3.4-5.0); ALK PHOS 128 U/L (45-117); ANION GAP 8 MMOL/L (8-16); BILIRUBIN,TOTAL 0.2 mg/dL (0.2-1); BLOOD UREA NITROGEN 22 mg/dL (7-18); CALCIUM 8.5 mg/dL (8.5-10.1); CHLORIDE 100 mmol/L (98-107); CO2 28 mmol/L (21-32); CREATININE 0.6 mg/dL (0.55-1.3); GLUCOSE,RANDOM 132 mg/dL (74-106); POTASSIUM 4.2 mmol/L (3.5-5.1); SGOT/AST 20 U/L (15-37); SGPT/ALT 81 U/L (13-61); SODIUM 136 mmol/L (136-145); TOT PROT 6.9 g/dl (6.4-8.2)
[2018-09-17] MEDS ORDERED: guaiFENesin 200 MG/10 ML 10 ML UNIT-DOSE CUPS PO PRN (09:29)
--- NOTE | 2018-09-17 09:53 | PN ---
Progress Note (short form) - Note Progress Note: Still with congested cough. No hemoptysis. Pleuritic CP. Intake & Output 09/14/18 09/15/18 09/16/18 09/17/18 23:59 23:59 23:59 23:59 Intake Total 890 750 Balance 890 750 Weight 165 lb 166 lb Last Vital Signs Temp Pulse Resp BP Pulse Ox 97.9 F 69 20 105/41 L 96 09/17/18 05:00 09/17/18 05:00 09/17/18 05:00 09/17/18 05:00 09/16/18 21:00 Active Medications Acetaminophen (Tylenol Oral Solution -) 650 mg PO Q6H PRN PRN Reason: FEVER Albuterol Sulfate (Ventolin 0.083% Nebulizer Soln -) 1 amp NEB RQ4H PRN PRN Reason: Dyspnea Albuterol/Ipratropium (Duoneb -) 1 amp NEB RQID [facility] Last Admin: 09/17/18 07:50 Dose: 1 amp Atorvastatin Calcium (Lipitor -) 10 mg PO HS [facility] Last Admin: 09/16/18 22:05 Dose: 10 mg Budesonide/Formoterol Fumarate (Symbicort 160/4.5mcg -) 2 puff IH BID [facility] Last Admin: 09/16/18 22:08 Dose: 2 puff Enoxaparin Sodium (Lovenox -) 40 mg SQ DAILY [facility] Last Admin: 09/16/18 09:20 Dose: 40 mg Guaifenesin (Robitussin -) 10 ml PO Q6H PRN PRN Reason: COUGH Last Admin: 09/17/18 09:44 Dose: 10 ml Hydrochlorothiazide (Hctz -) 12.5 mg PO DAILY [facility] Last Admin: 09/16/18 09:20 Dose: 12.5 mg Azithromycin (Zithromax 500mg Ivpb (Pre-Docked)) 500 mg in 250 mls @ 250 mls/ hr IVPB DAILY@0600 [facility] Last Admin: 09/17/18 05:48 Dose: 250 mls/hr Labetalol HCl (Normodyne -) 100 mg PO DAILY [facility] Last Admin: 09/16/18 09:20 Dose: 100 mg Methylprednisolone Sodium Succinate (Solu-Medrol -) 60 mg IVPUSH Q8H [facility] Last Admin: 09/17/18 05:48 Dose: 60 mg Nifedipine (Procardia Xl -) 90 mg PO DAILY [facility] Last Admin: 09/16/18 12:37 Dose: Not Given Constitutional: Yes: Awake and alert Eyes: Yes: Conjunctiva Clear, EOM Intact HENT: Yes: Atraumatic, Normocephalic Neck: Yes: Supple, Trachea Midline Cardiovascular: Yes: Regular Rate and Rhythm Respiratory: Yes: Poor Air Entry, Rhonchi ...Clubbing: No Gastrointestinal: Yes: Normal Bowel Sounds, Soft. No: Tenderness Edema: No Neurological: Yes: Alert, Oriented Labs: Laboratory Results - last 24 hr 09/16/18 09/17/18 06:00 07:00 Neutrophils % (Manual) 79.8 Band Neutrophils % 9.1 Lymphocytes % (Manual) 5.1 L D Monocytes % (Manual) 4 Eosinophils % (Manual) 0.0 Basophils % (Manual) 0.0 Myelocytes % (Man) 0 Promyelocytes % (Man) 0 Blast Cells % (Manual) 0 Metamyelocytes 0 Hypochromia 0 Platelet Estimate Normal Platelet Comment Present Polychromasia 1+ Poikilocytosis 0 Basophilic Stippling 1+ Anisocytosis 1+ Microcytosis 1+ Macrocytosis 0 Sodium 136 Potassium 4.2 Chloride 100 Carbon Dioxide 28 Anion Gap 8 BUN 22 H Creatinine 0.6 Creat Clearance w eGFR > 60 Random Glucose 132 H Calcium 8.5 Total Bilirubin 0.2 AST 20 ALT 81 H Alkaline Phosphatase 128 H Total Protein 6.9 Albumin 3.4 Problem List - Problems (1) COPD exacerbation Code(s): J44.1 - CHRONIC OBSTRUCTIVE PULMONARY DISEASE W (ACUTE) EXACERBATION (2) Acute bronchitis Code(s): J20.9 - ACUTE BRONCHITIS, UNSPECIFIED (3) Anxiety Code(s): F41.9 - ANXIETY DISORDER, UNSPECIFIED (4) Nicotine dependence Code(s): F17.200 - NICOTINE DEPENDENCE, UNSPECIFIED, UNCOMPLICATED Qualifiers: Nicotine product type: cigarettes Substance use status: uncomplicated Qualified Code(s): F17.210 - Nicotine dependence, cigarettes, uncomplicated (5) Hypertension Code(s): I10 - ESSENTIAL (PRIMARY) HYPERTENSION Assessment/Plan Acute COPD Exacerbation Acute Bronchitis HTN Polysubstance Abuse Smoker 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
--- NOTE | 2018-09-17 11:37 | PN ---
Progress Note (short form) - Note Progress Note: SUBJECTIVE Still dyspneic, worse on exertion. Cough productive of greenish sputum - no hemoptysis. Abdominal discomfort on coughing. OBJECTIVE Afebrile, Hemodynamically Stable. SpO2 96% on 3L via NC. Dyspneic Last Vital Signs Temp Pulse Resp BP Pulse Ox 97.9 F 69 20 105/41 L 96 09/17/18 05:00 09/17/18 05:00 09/17/18 05:00 09/17/18 05:00 09/16/18 21:00 HEENT -Atraumatic, Normocephalic Heart - S1, S2, RRR Lungs - decreased air entry bilaterally, few L sided crackles, occasional wheeze. Abdomen - Soft, non-tender. Bowel Sound normal. Extremities - no calf swelling/tenderness. Neuro- AAO x 3. Tone/Power normal all 4 extremities. Laboratory Results - last 24 hr 09/16/18 09/17/18 06:00 07:00 Neutrophils % (Manual) 79.8 Band Neutrophils % 9.1 Lymphocytes % (Manual) 5.1 L D Monocytes % (Manual) 4 Eosinophils % (Manual) 0.0 Basophils % (Manual) 0.0 Myelocytes % (Man) 0 Promyelocytes % (Man) 0 Blast Cells % (Manual) 0 Metamyelocytes 0 Hypochromia 0 Platelet Estimate Normal Platelet Comment Present Polychromasia 1+ Poikilocytosis 0 Basophilic Stippling 1+ Anisocytosis 1+ Microcytosis 1+ Macrocytosis 0 Sodium 136 Potassium 4.2 Chloride 100 Carbon Dioxide 28 Anion Gap 8 BUN 22 H Creatinine 0.6 Creat Clearance w eGFR > 60 Random Glucose 132 H Calcium 8.5 Total Bilirubin 0.2 AST 20 ALT 81 H Alkaline Phosphatase 128 H Total Protein 6.9 Albumin 3.4 Current Medications Generic Name Dose Route Start Last Admin Trade Name Freq PRN Reason Stop Dose Admin Acetaminophen 650 mg 09/16/18 10:44 Tylenol Oral Solution - PO Q6H PRN FEVER Albuterol Sulfate 1 amp 09/15/18 23:41 Ventolin 0.083% Nebulizer Soln - NEB RQ4H PRN Dyspnea Albuterol/Ipratropium 1 amp 09/16/18 08:00 09/17/18 07:50 Duoneb - NEB 1 amp RQID BETH Administration Atorvastatin Calcium 10 mg 09/16/18 22:00 09/16/18 22:05 Lipitor - PO 10 mg HS BETH Administration Budesonide/Formoterol Fumarate 2 puff 09/15/18 23:45 09/16/18 22:08 Symbicort 160/4.5mcg - IH 2 puff BID BETH Administration Enoxaparin Sodium 40 mg 09/16/18 10:00 09/16/18 09:20 Lovenox - SQ 40 mg DAILY BETH Administration Guaifenesin 10 ml 09/17/18 09:29 09/17/18 09:44 Robitussin - PO 10 ml Q6H PRN Administration COUGH Hydrochlorothiazide 12.5 mg 09/16/18 10:00 09/16/18 09:20 Hctz - PO 12.5 mg DAILY BETH Administration Azithromycin 500 mg in 250 mls @ 250 mls/hr 09/17/18 06:00 09/17/18 05:48 Zithromax 500mg Ivpb (Pre-Docked) IVPB 250 mls/hr DAILY@0600 BETH Administration Labetalol HCl 100 mg 09/16/18 10:00 09/16/18 09:20 Normodyne - PO 100 mg DAILY BETH Administration Methylprednisolone Sodium Succinate 60 mg 09/16/18 14:00 09/17/18 05:48 Solu-Medrol - IVPUSH 60 mg Q8H BETH Administration Nifedipine 90 mg 09/15/18 20:15 09/16/18 12:37 Procardia Xl - PO Not Given DAILY [facility] ASSESSMENT/PLAN 52 year old female with history of COPD, Depression/Anxiety, HTN, HLD, Polysubstance Abuse (Alcohol, Cocaine, Tobacco), sent from [facility] due to increasing dyspnea for 3-4 days with SpO2 88% on RA reported at [facility]. She refers cough productive of green sputum. No fevers/chills/sweats. No chest pain/ palpitations. She was apparently on outpatient management with nebs, prednisone and azithromycin for 1 day prior to ED presentation. 1. Acute Hypoxic Respiratory Failure secondary to Acute Exacerbation COPD SpO2 reported 88% on RA CXR - no infiltrate DDIMER neg Leukocytosis - possibly sec to out-patient steroid use. No evidence of Pneumonia. Afebrile. Will continue DuoNebs, IV Solumedrol, Azithromycin, supplemental O2 to maintain SpO2 > 90%. Normally maintained on Symbicort and Tudorza. Pulmonary following Will get Echo to assess for other causes for SOB sandra given Alcohol and Cocaine use. Given ongoing dyspnea, CT Chest requested w/o contrast to r/o Fibrosis, result pending. 2. HTN - Continue Nifedipine, HCTZ, Labetolol 3. Depression/Anxiety - continue Mirtazapine and Sertraline. 4. HLD - Continue Statin 5. Polysubstance Abuse - Cocaine, Alcohol, Tobacco Counselled re:Tobacco use Recently at [facility]. Denies recent substance use Will monitor for withdrawals. MVI, Thiamine, Folate 6. Elevated Transaminases - trending down. ALT down to 81 from 115. Abdominal US - borderline large Liver, cholelithiasis Hepatitis Panel pending Will monitor. DVT Px - Lovenox SQ Visit type - Emergency Visit Emergency Visit: Yes ED Registration Date: 09/15/18 Care time: The patient presented to the Emergency Department on the above date and was hospitalized for further evaluation of their emergent condition. - New Patient This patient is new to me today: No - Critical Care Critical Care patient: No - Discharge Referral Referred to [facility] Med P.C.: No
[2018-09-17] MEDS ORDERED: PT OWN MED DRAWER 7, Y5N ONE ×2 (12:57→21:12)
[2018-09-17] MEDS: HYDROCHLOROTHIAZIDE 12.5 MG CAPSULE (FP) PO SCH (13:01)
[2018-09-17] MEDS: LABETALOL HCL 100 MG TABLET (FP) PO SCH (13:01)
[2018-09-17] MEDS: ENOXAPARIN NA (PORCINE) 40 MG/0.4 ML DISP.SYRIN SQ SCH (13:01)
[2018-09-17] MEDS: NIFEdipine E.R. 90 MG TABLET (FP) PO SCH (13:02)
[2018-09-17] MEDS: BUDESONIDE/FORMETEROL FUMARATE 160/4.5 mcg INHALER IH SCH ×2 (13:02→21:14)
[2018-09-17 13:14] LABS: HEP.C VIRUS AB 0.2 s/co ratio (0.0-0.9)
--- NOTE | 2018-09-17 14:16 | ECHO ---
Name: TOMMY CORRIGAN Exam:Adult Echocardiogram Study Date: 09/17/2018 10:25 AM Age: 52 yrs Reason For Study: DYSPNEA Height: 65 in Weight: 165 lb BSA: 1.8 m2 MMode/2D Measurements & Calculations IVSd: 0.77 cm EDV(Teich): 90.0 ml LVIDd: 4.4 cm ESV(Teich): 26.8 ml LVIDs: 2.7 cm LVPWd: 0.74 cm Doppler Measurements & Calculations MV E max santiago: 82.9 cm/sec Med Peak E' Santiago: 8.7 cm/sec MV A max santiago: 80.5 cm/sec Med E/e': 9.6 MV E/A: 1.0 Lat Peak E' Santiago: 11.1 cm/sec Lat E/e': 7.5 Procedure A complete two-dimensional transthoracic echocardiogram was performed (2D, M-mode, Doppler and color flow Doppler). The study was technically excellent with all images being of optimal quality. Left Ventricle The left ventricular size, thickness and function are normal. Left Ventricular Filling pattern is nor mal for age. The left ventricular wall motion is normal. Right Ventricle The right ventricle is normal in size and function. There is normal right ventricular wall thickness. Atria Normal left and right atrial size and function. Mitral Valve The mitral valve is normal in structure and function. There is trace mitral regurgitation. Tricuspid Valve The tricuspid valve is normal in structure and function. There is trace tricuspid regurgitation. Aortic Valve The aortic valve is normal in structure and function. No aortic regurgitation is present. Pulmonic Valve The pulmonic valve is normal in structure and function. Trace pulmonic valvular regurgitation. Great Vessels The aortic root is normal size. Pericardium/Pleura There is no pericardial effusion. Interpretation Summary This was essentially a normal study. Willam Zapien 09/17/2018 02:16 PM
[2018-09-17] MEDS: ATORVASTATIN CA 10 MG TABLET (FP) PO SCH (21:10)
--- NOTE | 2018-09-18 00:23 | PN ---
Teaching Attending Note Name of Resident: Shawanda Cruz ATTENDING PHYSICIAN STATEMENT I saw and evaluated the patient. I reviewed the resident's note and discussed the case with the resident. I agree with the resident's findings and plan as documented. SUBJECTIVE: Seen and examined; no issues overnight. Has no complaints to offer. Dyspnea slightly improved. CT and echo results reviewed; appreciate pulmonary medicine input. Still requiring O2 via NC. 10 sys ROS done and negative aside from HPI OBJECTIVE: VS, labs, imaging reviewed NAD, AAO, resting in bed Scattered wheezes, slightly prolonged expiration RRR s1/2 no mgr NT ND +BS CN2-12 wnl, no fnd CT suspect for prior granulomatous disease given L-apical fibrosis Echocardiogram essentially normal Labs pending ASSESSMENT AND PLAN: 52 year old female with history of COPD, Depression/Anxiety, HTN, HLD, Polysubstance Abuse (Alcohol, Cocaine, Tobacco), [place] [facility] [place] dyspnea for 3-4 days with SpO2 88% on [place] [facility] [place] She refers cough productive of green sputum. No fevers/chills/sweats. No chest pain/ palpitations. She was apparently on outpatient management with nebs, prednisone and azithromycin for 1 day prior to ED presentation. Pulmonary is currently following; they are improving on IV steroids, nebs. Hopeful DC 24-48 hours. 1. Acute Hypoxic Respiratory Failure secondary to Acute Exacerbation COPD SpO2 reported 88% on RA; improved now on NC and working to wean off entirly -Leukocytosis - possibly sec to out-patient steroid use. No evidence of Pneumonia. Afebrile. Trending down; continue to monitor CBC -Will continue DuoNebs, IV Solumedrol, Azithromycin, supplemental O2 to maintain SpO2 > 90%.; appreciate pulmonary input and will continue to manage as per their service -Normally maintained on Symbicort and Tudorza. -Echo wnl -Followup on the AF[employer] results; CT scan noted with JERONIMO fibrosis 2. HTN - Continue Nifedipine, HCTZ, Labetolol. Acceptable BP control 3. Depression/Anxiety - continue Mirtazapine and Sertraline. 4. HLD - Continue Statin 5. Polysubstance Abuse - Cocaine, Alcohol, Tobacco -Potential XF back to [facility] when off O2 6. Elevated Transaminases - trending down. ALT down to 81 from 115. Abdominal US - borderline large Liver, cholelithiasis Hepatitis Panel negative Continue to trend LFTs DVT Px - Lovenox SQ
[2018-09-18 02:15] LABS: ALBUMIN 3.4 g/dl (3.4-5.0); ALK PHOS 126 U/L (45-117); ANION GAP 12 MMOL/L (8-16); BILIRUBIN,TOTAL 0.1 mg/dL (0.2-1); BLOOD UREA NITROGEN 29 mg/dL (7-18); CALCIUM 8.1 mg/dL (8.5-10.1); CHLORIDE 100 mmol/L (98-107); CO2 23 mmol/L (21-32); CREATININE 0.7 mg/dL (0.55-1.3); GLUCOSE,RANDOM 120 mg/dL (74-106); MAGNESIUM 2.3 mg/dL (1.8-2.4); PHOSPHOROUS 3.9 mg/dL (2.5-4.9); POTASSIUM 4.3 mmol/L (3.5-5.1); SGOT/AST 25 U/L (15-37); SGPT/ALT 83 U/L (13-61); SODIUM 134 mmol/L (136-145); TOT PROT 7.3 g/dl (6.4-8.2)
[2018-09-18 02:45] LABS: HEMATOCRIT 37.1 % (32.4-45.2); HEMOGLOBIN 12.8 GM/dL (10.7-15.3); MCH 31.5 pg (25.7-33.7); MCHC 34.6 g/dl (32.0-36.0); MEAN CELL VOLUME 91.1 fl (80-96); MEAN PLT VOLUME 8.4 fl (7.5-11.1); PLATELET COUNT 299 K/MM3 (134-434); RBC 4.07 M/mm3 (3.60-5.2); RDW 15.1 % (11.6-15.6); WHITE BLOOD COUNT 20.9 K/mm3 (4.0-10.0)
[2018-09-18] MEDS: AZITHROMYCIN IVPB 500 MG/250 ML BAG IVPB SCH (05:27)
[2018-09-18] MEDS: methylPREDNISolone NA SUCC 40 MG/1 ML VIAL IVPUSH SCH ×3 (05:28→17:21)
[2018-09-18] MEDS: ALBUTEROL SO4 2.5/IPRATROPIUM 0.5 INH SOL 3 ML VIAL.NEB. NEB SCH ×4 (08:40→20:50)
[2018-09-18] MEDS: ENOXAPARIN NA (PORCINE) 40 MG/0.4 ML DISP.SYRIN SQ SCH (09:44)
[2018-09-18] MEDS: LABETALOL HCL 100 MG TABLET (FP) PO SCH (09:44)
[2018-09-18] MEDS: HYDROCHLOROTHIAZIDE 12.5 MG CAPSULE (FP) PO SCH (09:44)
[2018-09-18] MEDS: NIFEdipine E.R. 90 MG TABLET (FP) PO SCH (09:44)
[2018-09-18] MEDS: BUDESONIDE/FORMETEROL FUMARATE 160/4.5 mcg INHALER IH SCH ×2 (09:49→22:19)
--- NOTE | 2018-09-18 10:19 | PN ---
Progress Note, Physician History of Present Illness: pulmonary alert,feeling better less dyspneic,l+cough - Current Medication List Current Medications: Active Medications Acetaminophen (Tylenol Oral Solution -) 650 mg PO Q6H PRN PRN Reason: FEVER Last Admin: 09/17/18 14:34 Dose: 650 mg Albuterol Sulfate (Ventolin 0.083% Nebulizer Soln -) 1 amp NEB RQ4H PRN PRN Reason: Dyspnea Albuterol/Ipratropium (Duoneb -) 1 amp NEB RQID ON LICENSE OF [facility] Last Admin: 09/18/18 08:40 Dose: 1 amp Atorvastatin Calcium (Lipitor -) 10 mg PO HS ON LICENSE OF [facility] Last Admin: 09/17/18 21:10 Dose: 10 mg Budesonide/Formoterol Fumarate (Symbicort 160/4.5mcg -) 2 puff IH BID ON LICENSE OF [facility] Last Admin: 09/18/18 09:49 Dose: 2 puff Enoxaparin Sodium (Lovenox -) 40 mg SQ DAILY ON LICENSE OF [facility] Last Admin: 09/18/18 09:44 Dose: 40 mg Guaifenesin (Robitussin -) 10 ml PO Q6H PRN PRN Reason: COUGH Last Admin: 09/17/18 09:44 Dose: 10 ml Hydrochlorothiazide (Hctz -) 12.5 mg PO DAILY ON LICENSE OF [facility] Last Admin: 09/18/18 09:44 Dose: 12.5 mg Azithromycin (Zithromax 500mg Ivpb (Pre-Docked)) 500 mg in 250 mls @ 250 mls/ hr IVPB DAILY@0600 ON LICENSE OF [facility] Last Admin: 09/18/18 05:27 Dose: 250 mls/hr Labetalol HCl (Normodyne -) 100 mg PO DAILY ON LICENSE OF [facility] Last Admin: 09/18/18 09:44 Dose: 100 mg Methylprednisolone Sodium Succinate (Solu-Medrol -) 60 mg IVPUSH Q8H ON LICENSE OF [facility] Last Admin: 09/18/18 05:28 Dose: 60 mg Nifedipine (Procardia Xl -) 90 mg PO DAILY ON LICENSE OF [facility] Last Admin: 09/18/18 09:44 Dose: 90 mg - Objective Vital Signs: Vital Signs Temperature 97.3 F L 09/18/18 06:00 Pulse Rate 84 09/18/18 06:00 Respiratory Rate 12 09/18/18 06:00 Blood Pressure 111/63 09/18/18 06:00 O2 Sat by Pulse Oximetry (%) 96 09/16/18 21:00 Constitutional: Yes: Well Nourished, Calm Eyes: Yes: WNL HENT: Yes: WNL Neck: Yes: WNL Cardiovascular: Yes: Regular Rate and Rhythm, S1, S2 Respiratory: Yes: Rhonchi, Wheezes (scattered anika wheezes and rhonchi) Gastrointestinal: Yes: Normal Bowel Sounds, Soft Extremities: Yes: WNL Edema: No Labs: CBC, BMP 09/18/18 02:35 09/18/18 01:00 Assessment/Plan Problem List - Problems (1) COPD exacerbation Code(s): J44.1 - CHRONIC OBSTRUCTIVE PULMONARY DISEASE W (ACUTE) EXACERBATION (2) Acute bronchitis Code(s): J20.9 - ACUTE BRONCHITIS, UNSPECIFIED (3) Anxiety Code(s): F41.9 - ANXIETY DISORDER, UNSPECIFIED (4) Nicotine dependence Code(s): F17.200 - NICOTINE DEPENDENCE, UNSPECIFIED, UNCOMPLICATED Qualifiers: Nicotine product type: cigarettes Substance use status: uncomplicated Qualified Code(s): F17.210 - Nicotine dependence, cigarettes, uncomplicated (5) Hypertension Code(s): I10 - ESSENTIAL (PRIMARY) HYPERTENSION Assessment/Plan Acute COPD Exacerbation improving Acute Bronchitis HTN Polysubstance Abuse Smoker - taper medrol same - inhaled bronchodilators standing and PRN - antibiotics - O2 to keep Spo2 >90% - smoking cessation - outpt PFTs - DVT prophylaxis - thyroid ultrasound DR HURST
[2018-09-18] MEDS: ATORVASTATIN CA 10 MG TABLET (FP) PO SCH (22:21)
[2018-09-19] MEDS: methylPREDNISolone NA SUCC 40 MG/1 ML VIAL IVPUSH SCH ×3 (02:26→18:23)
[2018-09-19] MEDS: AZITHROMYCIN IVPB 500 MG/250 ML BAG IVPB SCH (05:35)
[2018-09-19] MEDS: ALBUTEROL SO4 2.5/IPRATROPIUM 0.5 INH SOL 3 ML VIAL.NEB. NEB SCH ×4 (08:57→20:25)
--- NOTE | 2018-09-19 09:24 | PN ---
Physical Exam: SUBJECTIVE: Patient seen and examined at the bedside. ambulating in room, mild shortness of breath at rest. States she feels her breathing is improved but still having some shortness of breath at rest wants to go to rehab does not want to use drugs anymore (admits to crack/cocaine use), wants to get her life together. wants to quit smoking also OBJECTIVE: on solumedrol q8. leukocytosis noted @ 22. no wheezing, lungs diminished pre and post prior to discharge thyroid u/s to be done as an outpatient Vital Signs Period Temp Pulse Resp BP Sys/Weiner Pulse Ox Last 24 Hr 97.4 F-98.3 F 78-83 18-18 102-130/64-80 100 GENERAL: The patient is awake, alert, and fully oriented, in no acute distress. HEAD: Normal with no signs of trauma. EYES: PERRL, extraocular movements intact, sclera anicteric, conjunctiva clear. No ptosis. ENT: Ears normal, nares patent, oropharynx clear without exudates, moist mucous membranes. NECK: Trachea midline, full range of motion, supple. LUNGS: diminished lungs bilaterally, no wheezing HEART: sinus tachy on youth nutritional monitor ABDOMEN: Soft, nontender, nondistended, normoactive bowel sounds, no guarding, no rebound, no hepatosplenomegaly, no masses. EXTREMITIES: 2+ pulses, warm, well-perfused, no edema. NEUROLOGICAL: Normal speech, gait steady PSYCH: Normal mood, normal affect. SKIN: Warm, dry, normal turgor, no rashes or lesions noted Active Medications Generic Name Dose Route Start Last Admin Trade Name Jaradq PRN Reason Stop Dose Admin Acetaminophen 650 mg 09/16/18 10:44 09/17/18 14:34 Tylenol Oral Solution - PO 650 mg Q6H PRN Administration FEVER Albuterol Sulfate 1 amp 09/15/18 23:41 Ventolin 0.083% Nebulizer Soln - NEB RQ4H PRN Dyspnea Albuterol/Ipratropium 1 amp 09/16/18 08:00 09/19/18 08:57 Duoneb - NEB 1 amp RQID BETH Administration Atorvastatin Calcium 10 mg 09/16/18 22:00 09/18/18 22:21 Lipitor - PO 10 mg HS BETH Administration Budesonide/Formoterol Fumarate 2 puff 09/15/18 23:45 09/18/18 22:19 Symbicort 160/4.5mcg - IH 2 puff BID BETH Administration Enoxaparin Sodium 40 mg 09/16/18 10:00 09/18/18 09:44 Lovenox - SQ 40 mg DAILY BETH Administration Guaifenesin 10 ml 09/17/18 09:29 09/17/18 09:44 Robitussin - PO 10 ml Q6H PRN Administration COUGH Hydrochlorothiazide 12.5 mg 09/16/18 10:00 09/18/18 09:44 Hctz - PO 12.5 mg DAILY BETH Administration Azithromycin 500 mg in 250 mls @ 250 mls/hr 09/17/18 06:00 09/19/18 05:35 Zithromax 500mg Ivpb (Pre-Docked) IVPB 250 mls/hr DAILY@0600 BETH Administration Labetalol HCl 100 mg 09/16/18 10:00 09/18/18 09:44 Normodyne - PO 100 mg DAILY BETH Administration Methylprednisolone Sodium Succinate 40 mg 09/18/18 10:30 09/19/18 02:26 Solu-Medrol - IVPUSH 40 mg Q8H-IV BETH Administration Nifedipine 90 mg 09/15/18 20:15 09/18/18 09:44 Procardia Xl - PO 90 mg DAILY BETH Administration ASSESSMENT/PLAN: Patient is a 53 year old female with a significant past medical history of polysubstance abuse (crack/cocaine), anxiety, depression, COPD and hypertension. Patient presents to [facility] on 09/15/2018 from [facility] (detox) with shortness of breath with dry cough. Pulmonary COPD exacerbation, improving Shortness of breath, resolving On Solumedrol q 8, taper down per pulmonary Tolerating room air. but may need supplemental oxygen prn to maintain sats >90% On duonebs pre and post prior to d/c Chest xray without acute pathology On Azithromycin 500mg ivpb On Symbicort ID: Leukocytosis @ 22 Likely secondary to high dose steriods repeat blood cultures Will consult ID for further recommendations. Card: Hypertension On Procardia xl, labetalol hcl HLD: on Lipitor fen tolerating po protonix while on steriods disposition: full code. d/c to [facility] when cleared by pulmonary. Visit type - Emergency Visit Emergency Visit: Yes ED Registration Date: 09/15/18 Care time: The patient presented to the Emergency Department on the above date and was hospitalized for further evaluation of their emergent condition. - New Patient This patient is new to me today: Yes Date on this admission: 09/19/18 - Critical Care Critical Care patient: No - Discharge Referral Referred to [facility] No
[2018-09-19] MEDS ORDERED: PT OWN MED DRAWER 7, Y5N ONE (09:30)
[2018-09-19] MEDS: HYDROCHLOROTHIAZIDE 12.5 MG CAPSULE (FP) PO SCH (09:54)
[2018-09-19] MEDS: LABETALOL HCL 100 MG TABLET (FP) PO SCH (09:54)
[2018-09-19] MEDS: NIFEdipine E.R. 90 MG TABLET (FP) PO SCH (09:54)
[2018-09-19] MEDS: ENOXAPARIN NA (PORCINE) 40 MG/0.4 ML DISP.SYRIN SQ SCH (09:54)
[2018-09-19] MEDS ORDERED: methylPREDNISolone NA SUCC 40 MG/1 ML VIAL IVPUSH SCH (10:00)
[2018-09-19] MEDS: BUDESONIDE/FORMETEROL FUMARATE 160/4.5 mcg INHALER IH SCH ×2 (10:01→21:35)
--- NOTE | 2018-09-19 10:36 | PN ---
Progress Note, Physician History of Present Illness: pulmonary alert,c/o cough,less dyspneic - Current Medication List Current Medications: Active Medications Acetaminophen (Tylenol Oral Solution -) 650 mg PO Q6H PRN PRN Reason: FEVER Last Admin: 09/17/18 14:34 Dose: 650 mg Albuterol Sulfate (Ventolin 0.083% Nebulizer Soln -) 1 amp NEB RQ4H PRN PRN Reason: Dyspnea Albuterol/Ipratropium (Duoneb -) 1 amp NEB RQID [facility] Last Admin: 09/19/18 08:57 Dose: 1 amp Atorvastatin Calcium (Lipitor -) 10 mg PO HS [facility] Last Admin: 09/18/18 22:21 Dose: 10 mg Budesonide/Formoterol Fumarate (Symbicort 160/4.5mcg -) 2 puff IH BID [facility] Last Admin: 09/19/18 10:01 Dose: 2 puff Enoxaparin Sodium (Lovenox -) 40 mg SQ DAILY [facility] Last Admin: 09/19/18 09:54 Dose: 40 mg Guaifenesin (Robitussin -) 10 ml PO Q6H PRN PRN Reason: COUGH Last Admin: 09/17/18 09:44 Dose: 10 ml Hydrochlorothiazide (Hctz -) 12.5 mg PO DAILY [facility] Last Admin: 09/19/18 09:54 Dose: 12.5 mg Azithromycin (Zithromax 500mg Ivpb (Pre-Docked)) 500 mg in 250 mls @ 250 mls/ hr IVPB DAILY@0600 [facility] Last Admin: 09/19/18 05:35 Dose: 250 mls/hr Labetalol HCl (Normodyne -) 100 mg PO DAILY [facility] Last Admin: 09/19/18 09:54 Dose: 100 mg Methylprednisolone Sodium Succinate (Solu-Medrol -) 40 mg IVPUSH Q8H-IV [facility] Last Admin: 09/19/18 09:54 Dose: 40 mg Nifedipine (Procardia Xl -) 90 mg PO DAILY [facility] Last Admin: 09/19/18 09:54 Dose: 90 mg - Objective Vital Signs: Vital Signs Temperature 97.4 F L 09/19/18 06:00 Pulse Rate 78 09/19/18 06:00 Respiratory Rate 18 09/19/18 06:00 Blood Pressure 130/68 09/19/18 06:00 O2 Sat by Pulse Oximetry (%) 100 09/18/18 21:00 Constitutional: Yes: Well Nourished, Calm Eyes: Yes: WNL HENT: Yes: WNL Neck: Yes: WNL Cardiovascular: Yes: Regular Rate and Rhythm, S1, S2 Respiratory: Yes: Wheezes (few wheezes) Gastrointestinal: Yes: Normal Bowel Sounds, Soft Extremities: Yes: WNL Edema: No Labs: CBC, BMP Assessment/Plan Problem List - Problems (1) COPD exacerbation Code(s): J44.1 - CHRONIC OBSTRUCTIVE PULMONARY DISEASE W (ACUTE) EXACERBATION (2) Acute bronchitis Code(s): J20.9 - ACUTE BRONCHITIS, UNSPECIFIED (3) Anxiety Code(s): F41.9 - ANXIETY DISORDER, UNSPECIFIED (4) Nicotine dependence Code(s): F17.200 - NICOTINE DEPENDENCE, UNSPECIFIED, UNCOMPLICATED Qualifiers: Nicotine product type: cigarettes Substance use status: uncomplicated Qualified Code(s): F17.210 - Nicotine dependence, cigarettes, uncomplicated (5) Hypertension Code(s): I10 - ESSENTIAL (PRIMARY) HYPERTENSION Assessment/Plan Acute COPD Exacerbation improving Acute Bronchitis HTN Polysubstance Abuse Smoker - medrol - inhaled bronchodilators standing and PRN - antibiotics - O2 to keep Spo2 >90% - smoking cessation - outpt PFTs - DVT prophylaxis - thyroid ultrasound DR HURST
[2018-09-19 11:41] LABS: BASO % 0.1 % (0-2.0); HEMATOCRIT 36.2 % (32.4-45.2); HEMOGLOBIN 12.5 GM/dL (10.7-15.3); LYMPH % 8.3 % (8-40); MCH 31.6 pg (25.7-33.7); MCHC 34.6 g/dl (32.0-36.0); MEAN CELL VOLUME 91.4 fl (80-96); MEAN PLT VOLUME 8.6 fl (7.5-11.1); MONO % 9.2 % (3.8-10.2); NEUT % 82.4 % (42.8-82.8); PLATELET COUNT 316 K/MM3 (134-434); RBC 3.96 M/mm3 (3.60-5.2); RDW 15.5 % (11.6-15.6); WHITE BLOOD COUNT 22.7 K/mm3 (4.0-10.0)
[2018-09-19 12:18] LABS: ALBUMIN 3.2 g/dl (3.4-5.0); ALK PHOS 101 U/L (45-117); ANION GAP 6 MMOL/L (8-16); BILIRUBIN,TOTAL 0.1 mg/dL (0.2-1); BLOOD UREA NITROGEN 27 mg/dL (7-18); CALCIUM 8.8 mg/dL (8.5-10.1); CHLORIDE 102 mmol/L (98-107); CO2 28 mmol/L (21-32); CREATININE 0.7 mg/dL (0.55-1.3); GLUCOSE,RANDOM 101 mg/dL (74-106); POTASSIUM 4.2 mmol/L (3.5-5.1); SGOT/AST 17 U/L (15-37); SGPT/ALT 70 U/L (13-61); SODIUM 136 mmol/L (136-145); TOT PROT 6.6 g/dl (6.4-8.2)
[2018-09-19 12:57] LABS: ACANTHOCYTES 0; ANISOCYTOSIS 0; HELMET CELLS 0; HOWELL-JOLLY BODIES 0; MACROCYTOSIS 0; OVALOCYTE 0; PLATELET ESTIMATE NORMAL; ROULEAU 0; SICKELED CELLS 0; TARGET CELLS 0; TEAR DROP CELLS 0; TOXIC GRANULATION 0
--- NOTE | 2018-09-19 13:28 | CON.ID ---
Consult Consult Specialty:: infectious diseases Referred by:: Nery Reason for Consultation:: sob,cough - History of Present Illness Chief Complaint: sob,cough History of Present Illness: 52yo female with h/o HTN, COPD, polysubstance abuse, anxiety/depression who was sent from [facility] for worsening shortness of breath. Denies chest pain or discomfort but with tightness. No fevers, chills or sweats. +cough productive initially with green sputum now nonproductive. Also with significant wheezing. Maintained at home on Symbicort and Tudorza. She is a long time smoker, currently about 5 cigarettes/day. says she is feeling beter now patient has been started on zithro cough less - History Source History Provided By: Patient Limitations to Obtaining History: No Limitations - Past Medical History Cardio/Vascular: Yes: HTN Pulmonary: Yes: COPD ...LMP Comment: more than a year and a half ago ...: No - Alcohol/Substance Use Hx Alcohol Use: Yes (drinking since 15 yo,vodka a few pints daily) - Smoking History Smoking history: Current every day smoker Have you smoked in the past 12 months: Yes Aproximately how many cigarettes per day: 2 Home Medications - Allergies Allergies/Adverse Reactions: Allergies Allergy/AdvReac Type Severity Reaction Status Date / Time No Known Allergies Allergy Verified 10/05/18 10:20 - Home Medications Home Medications: Ambulatory Orders Acetaminophen [Tylenol] 650 mg PO ASDIR 10/05/18 Albuterol 0.083% Nebulizer Jyoti [Ventolin 0.083%] 1 neb NEB QID 10/05/18 Albuterol 2.5/Ipratropium 0.5 [Duoneb -] 1 neb NEB Q4H 10/05/18 Atorvastatin Ca [Lipitor] 10 mg PO HS 10/05/18 Budesonide/Formeterol Fumarate [SYMBICORT 160/4.5mcg -] 1 inh PO BID 10/05/18 Clotrimazole [Mycelex Doron's -] 10 mg PO TID 10/05/18 Dextromethorphan/Benzocaine [Cepacol Sorethroat-Cough Seymour] 1 each PO ASDIR 10/05 Guaifenesin [Robitussin] 100 mg PO DAILY 10/05/18 Ibuprofen [Motrin -] 400 mg PO QID 10/05/18 Labetalol HCl [Normodyne -] 100 mg PO BID 10/05/18 Loperamide HCl [Imodium -] 4 mg PO QID 10/05/18 Mag Hydrox/Al Hydrox/Simeth [Mylanta Oral Suspension -] 1 dose PO ASDIR Magnesium Citrate [Citroma -] 195 ml PO ONCE 10/05/18 Magnesium Hydroxide [Milk of Magnesia] 400 mg PO DAILY 10/05/18 Mirtazapine [Remeron -] 30 mg PO DAILY 10/05/18 Nifedipine [Procardia Xl] 90 mg PO DAILY 10/05/18 Pantoprazole Sodium [Protonix] 40 mg PO DAILY 10/05/18 95/Iron Fum/Folic/Dha [ + Dha Combo Pack] 1 each PO DAILY 10/05 RX: Hydrochlorothiazide 12.5 mg PO DAILY 10/05/18 RX: Melatonin 5 mg PO DAILY 10/05/18 Sertraline HCl [Zoloft -] 50 mg PO DAILY 10/05/18 Thiamine HCl [B-1] 100 mg PO HS 10/05/18 hydrOXYzine PAMOATE [Vistaril -] 50 mg PO TID 10/05/18 traZODone HCL [Trazodone HCl] 100 mg PO ASDIR 10/05/18 Family Disease History - Family Disease History Family Disease History: Heart Disease: Father (HTN, ), Mother Review of Systems - Review of Systems Constitutional: reports: No Symptoms Eyes: reports: No Symptoms HENT: reports: No Symptoms Cardiovascular: reports: No Symptoms Respiratory: reports: Cough, SOB Gastrointestinal: reports: No Symptoms Genitourinary: reports: No Symptoms Musculoskeletal: reports: No Symptoms Integumentary: reports: No Symptoms Neurological: reports: No Symptoms Endocrine: reports: No Symptoms Hematology/Lymphatic: reports: No Symptoms Psychiatric: reports: No Symptoms Physical Exam Vital Signs: Vital Signs Temperature 97.5 F L 09/19/18 10:00 Pulse Rate 78 09/19/18 10:00 Respiratory Rate 18 09/19/18 10:00 Blood Pressure 124/55 L 09/19/18 10:00 O2 Sat by Pulse Oximetry (%) 100 09/18/18 21:00 Constitutional: Yes: Well Nourished, Calm Cardiovascular: Yes: Regular Rate and Rhythm Respiratory: Yes: On Nasal O2, Poor Air Entry Gastrointestinal: Yes: Normal Bowel Sounds, Soft Musculoskeletal: Yes: WNL Extremities: Yes: WNL Neurological: Yes: Alert, Oriented Psychiatric: Yes: Alert, Oriented Labs: CBC, BMP 09/19/18 11:15 09/19/18 11:15 Imaging - Results Chest X-ray: Report Reviewed, Image Reviewed Cat Scan: Report Reviewed, Image Reviewed Assessment/Plan Assessment/Plan Problem List - Problems (1) COPD exacerbation Code(s): J44.1 - CHRONIC OBSTRUCTIVE PULMONARY DISEASE W (ACUTE) EXACERBATION (2) Acute bronchitis Code(s): J20.9 - ACUTE BRONCHITIS, UNSPECIFIED (3) Anxiety Code(s): F41.9 - ANXIETY DISORDER, UNSPECIFIED (4) Nicotine dependence Code(s): F17.200 - NICOTINE DEPENDENCE, UNSPECIFIED, UNCOMPLICATED Qualifiers: Nicotine product type: cigarettes Substance use status: uncomplicated Qualified Code(s): F17.210 - Nicotine dependence, cigarettes, uncomplicated (5) Hypertension Code(s): I10 - ESSENTIAL (PRIMARY) HYPERTENSION sputum cx negative so far plan continue zithro will not start anything else incentive sylvia will monitor rest as per the team
[2018-09-19] MEDS: ATORVASTATIN CA 10 MG TABLET (FP) PO SCH (21:35)
[2018-09-20] MEDS: methylPREDNISolone NA SUCC 40 MG/1 ML VIAL IVPUSH SCH ×2 (01:59→11:00)
[2018-09-20] MEDS: AZITHROMYCIN IVPB 500 MG/250 ML BAG IVPB SCH ×3 (06:02→10:00)
[2018-09-20] MEDS: ALBUTEROL SO4 2.5/IPRATROPIUM 0.5 INH SOL 3 ML VIAL.NEB. NEB SCH ×4 (07:30→20:07)
--- NOTE | 2018-09-20 09:15 | PN ---
Progress Note, Physician Chief Complaint: COPD exacerbation History of Present Illness: 24hr Events: -remains stable, pulm status has improved. -pt would like to return to [facility]. She needs to transition to oral pred taper in order to be d/kiran. -WBC continues to uptrend...? steroids - Current Medication List Current Medications: Active Medications Acetaminophen (Tylenol Oral Solution -) 650 mg PO Q6H PRN PRN Reason: FEVER Last Admin: 09/17/18 14:34 Dose: 650 mg Albuterol Sulfate (Ventolin 0.083% Nebulizer Soln -) 1 amp NEB RQ4H PRN PRN Reason: Dyspnea Albuterol/Ipratropium (Duoneb -) 1 amp NEB RQID [facility] Last Admin: 09/19/18 20:25 Dose: 1 amp Atorvastatin Calcium (Lipitor -) 10 mg PO HS [facility] Last Admin: 09/19/18 21:35 Dose: 10 mg Budesonide/Formoterol Fumarate (Symbicort 160/4.5mcg -) 2 puff IH BID [facility] Last Admin: 09/19/18 21:35 Dose: 2 puff Enoxaparin Sodium (Lovenox -) 40 mg SQ DAILY [facility] Last Admin: 09/19/18 09:54 Dose: 40 mg Guaifenesin (Robitussin -) 10 ml PO Q6H PRN PRN Reason: COUGH Last Admin: 09/17/18 09:44 Dose: 10 ml Hydrochlorothiazide (Hctz -) 12.5 mg PO DAILY [facility] Last Admin: 09/19/18 09:54 Dose: 12.5 mg Azithromycin (Zithromax 500mg Ivpb (Pre-Docked)) 500 mg in 250 mls @ 250 mls/ hr IVPB DAILY@0600 [facility] Last Admin: 09/20/18 06:48 Dose: Not Given Labetalol HCl (Normodyne -) 100 mg PO DAILY [facility] Last Admin: 09/19/18 09:54 Dose: 100 mg Methylprednisolone Sodium Succinate (Solu-Medrol -) 40 mg IVPUSH Q8H-IV [facility] Last Admin: 09/20/18 01:59 Dose: 40 mg Nifedipine (Procardia Xl -) 90 mg PO DAILY [facility] Last Admin: 09/19/18 09:54 Dose: 90 mg Pantoprazole Sodium (Protonix -) 40 mg PO DAILY BETH - Objective Vital Signs: Vital Signs Temperature 97.4 F L 09/20/18 05:25 Pulse Rate 81 09/20/18 05:25 Respiratory Rate 20 09/20/18 05:25 Blood Pressure 112/67 09/20/18 05:25 O2 Sat by Pulse Oximetry (%) 98 09/19/18 21:00 Constitutional: Yes: Well Nourished, Calm Eyes: Yes: Conjunctiva Clear, PERRL HENT: Yes: Atraumatic, Normocephalic Neck: Yes: Supple Cardiovascular: Yes: Regular Rate and Rhythm Respiratory: Yes: Regular, CTA Bilaterally Gastrointestinal: Yes: Normal Bowel Sounds, Soft, Abdomen, Obese ...Rectal Exam: Yes: Deferred Genitourinary: Yes: WNL Extremities: Yes: WNL Edema: No Peripheral Pulses WNL: Yes Peripheral Pulses: Left Radial: 2+, Right Radial: 2+, Left Doralis Pedis: 2+, Right Dorsalis Pedis: 2+ Integumentary: Yes: Other (scattered open comedones) Neurological: Yes: Alert, Oriented ...Motor Strength: WNL Psychiatric: Yes: Alert, Oriented Problem List - Problems (1) COPD exacerbation Assessment/Plan: solumedrol 40mg q8hrs -- start pred taper in AM so that discharge planning can be started. continue azithromycin 500mg daily x 5days, d/c on 09/21 continue symbicort BID Code(s): J44.1 - CHRONIC OBSTRUCTIVE PULMONARY DISEASE W (ACUTE) EXACERBATION (2) Alcohol use disorder, moderate, in early remission Assessment/Plan: pt to be transferred back to [facility] for continued inpt detox Code(s): F10.21 - ALCOHOL DEPENDENCE, IN REMISSION (3) Asthma Assessment/Plan: cont duoneb QID PRN albuterol PRN O2 NC Code(s): J45.909 - UNSPECIFIED ASTHMA, UNCOMPLICATED Qualifiers: Asthma severity: moderate Asthma persistence: unspecified Asthma complication type: with acute exacerbation Qualified Code(s): J45.901 - Unspecified asthma with (acute) exacerbation (4) Hypertension Assessment/Plan: continue HCTZ, procardia and labetalol cardiac diet Code(s): I10 - ESSENTIAL (PRIMARY) HYPERTENSION (5) Hypercholesterolemia Assessment/Plan: lipitor 10mg daily Code(s): E78.00 - PURE HYPERCHOLESTEROLEMIA, UNSPECIFIED Impression/Plan Impression/Plan: PPX: -protonix 40mg daily -PRN APAP for fever -lovenox 40mg SC daily -Robitussin PRN cough Visit type - Emergency Visit Emergency Visit: Yes ED Registration Date: 09/15/18 Care time: The patient presented to the Emergency Department on the above date and was hospitalized for further evaluation of their emergent condition. - New Patient This patient is new to me today: Yes Date on this admission: 09/20/18 - Critical Care Critical Care patient: No - Discharge Referral Referred to [facility] No
[2018-09-20 09:21] LABS: BASO % 0.3 % (0-2.0); HEMATOCRIT 42.7 % (32.4-45.2); HEMOGLOBIN 13.4 GM/dL (10.7-15.3); LYMPH % 11.6 % (8-40); MCH 29.6 pg (25.7-33.7); MCHC 31.4 g/dl (32.0-36.0); MEAN CELL VOLUME 94.4 fl (80-96); MEAN PLT VOLUME 9.2 fl (7.5-11.1); MONO % 3.8 % (3.8-10.2); NEUT % 84.3 % (42.8-82.8); PLATELET COUNT 248 K/MM3 (134-434); RBC 4.52 M/mm3 (3.60-5.2); WHITE BLOOD COUNT 25.5 K/mm3 (4.0-10.0)
[2018-09-20] MEDS: LABETALOL HCL 100 MG TABLET (FP) PO SCH (09:25)
[2018-09-20] MEDS: HYDROCHLOROTHIAZIDE 12.5 MG CAPSULE (FP) PO SCH (09:25)
[2018-09-20] MEDS: NIFEdipine E.R. 90 MG TABLET (FP) PO SCH (09:25)
[2018-09-20] MEDS: PANTOPRAZOLE 40 MG TABLET (FP) PO SCH (09:25)
[2018-09-20] MEDS: ENOXAPARIN NA (PORCINE) 40 MG/0.4 ML DISP.SYRIN SQ SCH (09:25)
[2018-09-20] MEDS: BUDESONIDE/FORMETEROL FUMARATE 160/4.5 mcg INHALER IH SCH ×2 (09:25→22:16)
[2018-09-20 10:08] LABS: ALBUMIN 3.5 g/dl (3.4-5.0); ALK PHOS 107 U/L (45-117); ANION GAP 11 MMOL/L (8-16); BILIRUBIN,TOTAL 0.2 mg/dL (0.2-1); BLOOD UREA NITROGEN 25 mg/dL (7-18); CHLORIDE 102 mmol/L (98-107); CO2 25 mmol/L (21-32); CREATININE 0.7 mg/dL (0.55-1.3); GLUCOSE,RANDOM 117 mg/dL (74-106); MAGNESIUM 2.6 mg/dL (1.8-2.4); POTASSIUM 4.2 mmol/L (3.5-5.1); SGOT/AST 24 U/L (15-37); SGPT/ALT 73 U/L (13-61); SODIUM 138 mmol/L (136-145); TOT PROT 7.1 g/dl (6.4-8.2)
[2018-09-20 11:07] LABS: ANISOCYTOSIS 2+; MACROCYTOSIS 0; PLATELET ESTIMATE NORMAL
--- NOTE | 2018-09-20 11:55 | PN ---
Progress Note, Physician History of Present Illness: patient doing well cough still present but better minimal sputum production now - Current Medication List Current Medications: Active Medications Acetaminophen (Tylenol Oral Solution -) 650 mg PO Q6H PRN PRN Reason: FEVER Last Admin: 09/17/18 14:34 Dose: 650 mg Albuterol Sulfate (Ventolin 0.083% Nebulizer Soln -) 1 amp NEB RQ4H PRN PRN Reason: Dyspnea Albuterol/Ipratropium (Duoneb -) 1 amp NEB RQID [facility] Last Admin: 09/20/18 07:30 Dose: 1 amp Atorvastatin Calcium (Lipitor -) 10 mg PO HS [facility] Last Admin: 09/19/18 21:35 Dose: 10 mg Budesonide/Formoterol Fumarate (Symbicort 160/4.5mcg -) 2 puff IH BID [facility] Last Admin: 09/20/18 09:25 Dose: 2 puff Enoxaparin Sodium (Lovenox -) 40 mg SQ DAILY [facility] Last Admin: 09/20/18 09:25 Dose: 40 mg Guaifenesin (Robitussin -) 10 ml PO Q6H PRN PRN Reason: COUGH Last Admin: 09/17/18 09:44 Dose: 10 ml Hydrochlorothiazide (Hctz -) 12.5 mg PO DAILY [facility] Last Admin: 09/20/18 09:25 Dose: 12.5 mg Azithromycin (Zithromax 500mg Ivpb (Pre-Docked)) 500 mg in 250 mls @ 250 mls/ hr IVPB DAILY@0600 [facility] Last Admin: 09/20/18 06:48 Dose: Not Given Labetalol HCl (Normodyne -) 100 mg PO DAILY [facility] Last Admin: 09/20/18 09:25 Dose: 100 mg Methylprednisolone Sodium Succinate (Solu-Medrol -) 40 mg IVPUSH Q8H-IV [facility] Last Admin: 09/20/18 01:59 Dose: 40 mg Nifedipine (Procardia Xl -) 90 mg PO DAILY [facility] Last Admin: 09/20/18 09:25 Dose: 90 mg Pantoprazole Sodium (Protonix -) 40 mg PO DAILY [facility] Last Admin: 09/20/18 09:25 Dose: 40 mg - Objective Vital Signs: Vital Signs Temperature 98.0 F 09/20/18 09:00 Pulse Rate 73 09/20/18 09:00 Respiratory Rate 18 12/27/18 09:00 Blood Pressure 103/60 09/20/18 09:00 O2 Sat by Pulse Oximetry (%) 100 09/20/18 09:00 Constitutional: Yes: No Distress, Calm Cardiovascular: Yes: Regular Rate and Rhythm Respiratory: Yes: Regular, On Nasal O2, Poor Air Entry (bases) Gastrointestinal: Yes: Normal Bowel Sounds, Soft Musculoskeletal: Yes: WNL Extremities: Yes: WNL Neurological: Yes: Alert, Oriented Psychiatric: Yes: Alert, Oriented Labs: CBC, BMP 09/20/18 08:30 09/20/18 08:30 Assessment/Plan Assessment/Plan Problem List - Problems (1) COPD exacerbation Code(s): J44.1 - CHRONIC OBSTRUCTIVE PULMONARY DISEASE W (ACUTE) EXACERBATION (2) Acute bronchitis Code(s): J20.9 - ACUTE BRONCHITIS, UNSPECIFIED (3) Anxiety Code(s): F41.9 - ANXIETY DISORDER, UNSPECIFIED (4) Nicotine dependence Code(s): F17.200 - NICOTINE DEPENDENCE, UNSPECIFIED, UNCOMPLICATED Qualifiers: Nicotine product type: cigarettes Substance use status: uncomplicated Qualified Code(s): F17.210 - Nicotine dependence, cigarettes, uncomplicated (5) Hypertension Code(s): I10 - ESSENTIAL (PRIMARY) HYPERTENSION sputum cx negative so far plan complete zithro course stop after 5 days incentive sylvia rest as per the team
--- NOTE | 2018-09-20 16:37 | PN ---
Progress Note (short form) - Note Progress Note: Still with some congested cough and pleuritic type CP, but less. No hemoptysis. Intake & Output 09/17/18 09/18/18 09/19/18 09/20/18 23:59 23:59 23:59 23:59 Intake Total 1850 1120 1020 510 Balance 1850 1120 1020 510 Last Vital Signs Temp Pulse Resp BP Pulse Ox 81 F L 81 18 115/68 100 09/20/18 14:00 09/20/18 14:00 09/20/18 09:00 09/20/18 14:00 09/20/18 09:00 Active Medications Acetaminophen (Tylenol Oral Solution -) 650 mg PO Q6H PRN PRN Reason: FEVER Last Admin: 09/17/18 14:34 Dose: 650 mg Albuterol Sulfate (Ventolin 0.083% Nebulizer Soln -) 1 amp NEB RQ4H PRN PRN Reason: Dyspnea Albuterol/Ipratropium (Duoneb -) 1 amp NEB RQID [facility] Last Admin: 09/20/18 11:59 Dose: 1 amp Atorvastatin Calcium (Lipitor -) 10 mg PO HS [facility] Last Admin: 09/19/18 21:35 Dose: 10 mg Budesonide/Formoterol Fumarate (Symbicort 160/4.5mcg -) 2 puff IH BID [facility]PL[facility] Last Admin: 09/20/18 09:25 Dose: 2 puff Enoxaparin Sodium (Lovenox -) 40 mg SQ DAILY [facility] Last Admin: 09/20/18 09:25 Dose: 40 mg Guaifenesin (Robitussin -) 10 ml PO Q6H PRN PRN Reason: COUGH Last Admin: 09/17/18 09:44 Dose: 10 ml Hydrochlorothiazide (Hctz -) 12.5 mg PO DAILY [facility] Last Admin: 09/20/18 09:25 Dose: 12.5 mg Azithromycin (Zithromax 500mg Ivpb (Pre-Docked)) 500 mg in 250 mls @ 250 mls/ hr IVPB DAILY@0600 [facility] Last Admin: 09/20/18 06:48 Dose: Not Given Labetalol HCl (Normodyne -) 100 mg PO DAILY [facility] Last Admin: 09/20/18 09:25 Dose: 100 mg Methylprednisolone Sodium Succinate (Solu-Medrol -) 40 mg IVPUSH Q8H-IV [facility] Last Admin: 09/20/18 11:00 Dose: 40 mg Nifedipine (Procardia Xl -) 90 mg PO DAILY [facility] Last Admin: 09/20/18 09:25 Dose: 90 mg Pantoprazole Sodium (Protonix -) 40 mg PO DAILY [facility] Last Admin: 09/20/18 09:25 Dose: 40 mg Constitutional: Yes: Awake and alert Eyes: Yes: Conjunctiva Clear, EOM Intact HENT: Yes: Atraumatic, Normocephalic Neck: Yes: Supple, Trachea Midline Cardiovascular: Yes: Regular Rate and Rhythm Respiratory: Yes: Poor Air Entry, Rhonchi ...Clubbing: No Gastrointestinal: Yes: Normal Bowel Sounds, Soft. No: Tenderness Edema: No Neurological: Yes: Alert, Oriented Labs: Laboratory Results - last 24 hr 09/20/18 09/20/18 08:30 08:30 WBC 25.5 H RBC 4.52 Hgb 13.4 Hct 42.7 D MCV 94.4 MCH 29.6 MCHC 31.4 L RDW 16.0 H Plt Count 248 D MPV 9.2 Absolute Neuts (auto) 21.5 H Neutrophils % 84.3 H Neutrophils % (Manual) 75.8 Band Neutrophils % 0.0 Lymphocytes % 11.6 D Lymphocytes % (Manual) 11.1 Monocytes % 3.8 Monocytes % (Manual) 4 Eosinophils % 0.0 Eosinophils % (Manual) 0.0 Basophils % 0.3 Basophils % (Manual) 0.0 Myelocytes % (Man) 0 D Promyelocytes % (Man) 0 Blast Cells % (Manual) 0 Nucleated RBC % 0 Metamyelocytes 2 D Hypochromia 0 Platelet Estimate Normal Platelet Comment Present Polychromasia 0 Poikilocytosis 0 Anisocytosis 2+ Microcytosis 0 Macrocytosis 0 Sodium 138 Potassium 4.2 Chloride 102 Carbon Dioxide 25 Anion Gap 11 BUN 25 H Creatinine 0.7 Creat Clearance w eGFR > 60 Random Glucose 117 H Calcium 9.0 Magnesium 2.6 H Total Bilirubin 0.2 AST 24 ALT 73 H Alkaline Phosphatase 107 Total Protein 7.1 Albumin 3.5 Problem List - Problems (1) COPD exacerbation Code(s): J44.1 - CHRONIC OBSTRUCTIVE PULMONARY DISEASE W (ACUTE) EXACERBATION (2) Acute bronchitis Code(s): J20.9 - ACUTE BRONCHITIS, UNSPECIFIED (3) Anxiety Code(s): F41.9 - ANXIETY DISORDER, UNSPECIFIED (4) Nicotine dependence Code(s): F17.200 - NICOTINE DEPENDENCE, UNSPECIFIED, UNCOMPLICATED Qualifiers: Nicotine product type: cigarettes Substance use status: uncomplicated Qualified Code(s): F17.210 - Nicotine dependence, cigarettes, uncomplicated (5) Hypertension Code(s): I10 - ESSENTIAL (PRIMARY) HYPERTENSION Assessment/Plan Acute COPD Exacerbation Acute Bronchitis HTN Polysubstance Abuse Smoker 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
[2018-09-20] MEDS: ATORVASTATIN CA 10 MG TABLET (FP) PO SCH (22:14)
[2018-09-21] MEDS: AZITHROMYCIN IVPB 500 MG/250 ML BAG IVPB SCH ×2 (06:37→12:13)
[2018-09-21] MEDS: ALBUTEROL SO4 2.5/IPRATROPIUM 0.5 INH SOL 3 ML VIAL.NEB. NEB SCH ×4 (07:20→20:50)
[2018-09-21 08:09] LABS: HEMATOCRIT 37.8 % (32.4-45.2); MCH 29.6 pg (25.7-33.7); MCHC 31.8 g/dl (32.0-36.0); MEAN CELL VOLUME 93.1 fl (80-96); MEAN PLT VOLUME 8.2 fl (7.5-11.1); PLATELET COUNT 289 K/MM3 (134-434); RBC 4.06 M/mm3 (3.60-5.2); RDW 15.6 % (11.6-15.6); WHITE BLOOD COUNT 21.9 K/mm3 (4.0-10.0)
[2018-09-21 08:34] LABS: ANION GAP 7 MMOL/L (8-16); BLOOD UREA NITROGEN 30 mg/dL (7-18); CALCIUM 8.6 mg/dL (8.5-10.1); CHLORIDE 100 mmol/L (98-107); CO2 31 mmol/L (21-32); CREATININE 0.7 mg/dL (0.55-1.3); GLUCOSE,RANDOM 69 mg/dL (74-106); MAGNESIUM 2.6 mg/dL (1.8-2.4); SODIUM 138 mmol/L (136-145)
[2018-09-21] MEDS: BUDESONIDE/FORMETEROL FUMARATE 160/4.5 mcg INHALER IH SCH ×2 (10:00→21:27)
[2018-09-21] MEDS: ENOXAPARIN NA (PORCINE) 40 MG/0.4 ML DISP.SYRIN SQ SCH (12:13)
[2018-09-21] MEDS: HYDROCHLOROTHIAZIDE 12.5 MG CAPSULE (FP) PO SCH (12:13)
[2018-09-21] MEDS: NIFEdipine E.R. 90 MG TABLET (FP) PO SCH (12:13)
[2018-09-21] MEDS: PANTOPRAZOLE 40 MG TABLET (FP) PO SCH (12:13)
[2018-09-21] MEDS: predniSONE 20 MG TABLET (UD) PO SCH (12:13)
[2018-09-21] MEDS: LABETALOL HCL 100 MG TABLET (FP) PO SCH (12:14)
--- NOTE | 2018-09-21 13:28 | PN ---
Progress Note, Physician History of Present Illness: patient today more sob says she is doing well all cx negative so far - Current Medication List Current Medications: Active Medications Acetaminophen (Tylenol Oral Solution -) 650 mg PO Q6H PRN PRN Reason: FEVER Last Admin: 09/17/18 14:34 Dose: 650 mg Albuterol Sulfate (Ventolin 0.083% Nebulizer Soln -) 1 amp NEB RQ4H PRN PRN Reason: Dyspnea Albuterol/Ipratropium (Duoneb -) 1 amp NEB RQID [facility] Last Admin: 09/21/18 07:20 Dose: 1 amp Atorvastatin Calcium (Lipitor -) 10 mg PO HS [facility] Last Admin: 09/20/18 22:14 Dose: 10 mg Budesonide/Formoterol Fumarate (Symbicort 160/4.5mcg -) 2 puff IH BID [facility] Last Admin: 09/20/18 22:16 Dose: 2 puff Enoxaparin Sodium (Lovenox -) 40 mg SQ DAILY [facility] Last Admin: 09/21/18 12:13 Dose: 40 mg Guaifenesin (Robitussin -) 10 ml PO Q6H PRN PRN Reason: COUGH Last Admin: 09/17/18 09:44 Dose: 10 ml Hydrochlorothiazide (Hctz -) 12.5 mg PO DAILY [facility] Last Admin: 09/21/18 12:13 Dose: 12.5 mg Labetalol HCl (Normodyne -) 100 mg PO DAILY [facility] Last Admin: 09/21/18 12:14 Dose: 100 mg Nifedipine (Procardia Xl -) 90 mg PO DAILY [facility] Last Admin: 09/21/18 12:13 Dose: 90 mg Pantoprazole Sodium (Protonix -) 40 mg PO DAILY [facility] Last Admin: 09/21/18 12:13 Dose: 40 mg Prednisone (Deltasone -) 40 mg PO DAILY [facility] Last Admin: 09/21/18 12:13 Dose: 40 mg - Objective Vital Signs: Vital Signs Temperature 97.6 F 09/21/18 06:00 Pulse Rate 75 09/21/18 06:00 Respiratory Rate 20 09/21/18 06:00 Blood Pressure 104/72 09/21/18 06:00 O2 Sat by Pulse Oximetry (%) 100 09/20/18 21:00 Constitutional: Yes: Calm, Mild Distress Cardiovascular: Yes: Regular Rate and Rhythm Respiratory: Yes: On Nasal O2, Poor Air Entry, Other (resp rffort) Gastrointestinal: Yes: Normal Bowel Sounds, Soft Musculoskeletal: Yes: WNL Extremities: Yes: WNL Neurological: Yes: Alert, Oriented Psychiatric: Yes: Alert, Oriented Labs: CBC, BMP 09/21/18 07:00 09/21/18 07:00 Assessment/Plan Assessment/Plan Problem List - Problems (1) COPD exacerbation Code(s): J44.1 - CHRONIC OBSTRUCTIVE PULMONARY DISEASE W (ACUTE) EXACERBATION (2) Acute bronchitis Code(s): J20.9 - ACUTE BRONCHITIS, UNSPECIFIED (3) Anxiety Code(s): F41.9 - ANXIETY DISORDER, UNSPECIFIED (4) Nicotine dependence Code(s): F17.200 - NICOTINE DEPENDENCE, UNSPECIFIED, UNCOMPLICATED Qualifiers: Nicotine product type: cigarettes Substance use status: uncomplicated Qualified Code(s): F17.210 - Nicotine dependence, cigarettes, uncomplicated (5) Hypertension Code(s): I10 - ESSENTIAL (PRIMARY) HYPERTENSION sputum cx negative so far plan stop zithro after 5 days resp monitoring rest as per the team
--- NOTE | 2018-09-21 15:49 | PN ---
Physical Exam: SUBJECTIVE: Patient seen and examined at the bedside. Denies chest pain. verbalizes shortness of breath at rest. OBJECTIVE: 24 hrs: solumedrol discontinued, now on prednisone 40mg daily patient noted to be more short of breath today with abdominal muscle use, but was not wearing her oxygen. lungs remain diminished, no wheezing chest ct 09/17 with pleural thickening and suspicious for glaucomatous disease will need a pre and post to assess for home oxygen use repeat chest xray Vital Signs Period Temp Pulse Resp BP Sys/Weiner Pulse Ox Last 24 Hr 97.5 F-98 F 75-82 18-20 101-118/63-82 100 GENERAL: The patient is awake, alert, and fully oriented, in no acute distress. HEAD: Normal with no signs of trauma. EYES: PERRL, extraocular movements intact, sclera anicteric, conjunctiva clear. No ptosis. ENT: Ears normal, nares patent, oropharynx clear without exudates, moist mucous membranes. NECK: Trachea midline, full range of motion, supple. LUNGS: diminished lungs bilaterally, no wheezing HEART: sinus tachy on teletypesetter monitor ABDOMEN: Soft, nontender, nondistended, normoactive bowel sounds, no guarding, no rebound, no hepatosplenomegaly, no masses. EXTREMITIES: 2+ pulses, warm, well-perfused, no edema. NEUROLOGICAL: Normal speech, gait steady PSYCH: Normal mood, normal affect. SKIN: Warm, dry, normal turgor, no rashes or lesions noted Laboratory Results - last 24 hr 09/21/18 09/21/18 07:00 07:00 WBC 21.9 H RBC 4.06 Hgb 12.0 Hct 37.8 MCV 93.1 MCH 29.6 MCHC 31.8 L RDW 15.6 Plt Count 289 MPV 8.2 D Sodium 138 Potassium 4.0 Chloride 100 Carbon Dioxide 31 Anion Gap 7 L BUN 30 H Creatinine 0.7 Creat Clearance w eGFR > 60 Random Glucose 69 L Calcium 8.6 Magnesium 2.6 H Active Medications Generic Name Dose Route Start Last Admin Trade Name Freq PRN Reason Stop Dose Admin Acetaminophen 650 mg 09/16/18 10:44 09/17/18 14:34 Tylenol Oral Solution - PO 650 mg Q6H PRN Administration FEVER Albuterol Sulfate 1 amp 09/15/18 23:41 Ventolin 0.083% Nebulizer Soln - NEB RQ4H PRN Dyspnea Albuterol/Ipratropium 1 amp 09/16/18 08:00 09/21/18 11:40 Duoneb - NEB 1 amp RQID [facility] Administration Atorvastatin Calcium 10 mg 09/16/18 22:00 09/20/18 22:14 Lipitor - PO 10 mg HS [facility] Administration Budesonide/Formoterol Fumarate 2 puff 09/15/18 23:45 09/20/18 22:16 Symbicort 160/4.5mcg - IH 2 puff BID [facility] Administration Enoxaparin Sodium 40 mg 09/16/18 10:00 09/21/18 12:13 Lovenox - SQ 40 mg DAILY [facility] Administration Guaifenesin 10 ml 09/17/18 09:29 09/17/18 09:44 Robitussin - PO 10 ml Q6H PRN Administration COUGH Hydrochlorothiazide 12.5 mg 09/16/18 10:00 09/21/18 12:13 Hctz - PO 12.5 mg DAILY [facility] Administration Labetalol HCl 100 mg 09/16/18 10:00 09/21/18 12:14 Normodyne - PO 100 mg DAILY [facility] Administration Nifedipine 90 mg 09/15/18 20:15 09/21/18 12:13 Procardia Xl - PO 90 mg DAILY [facility] Administration Pantoprazole Sodium 40 mg 09/20/18 10:00 09/21/18 12:13 Protonix - PO 40 mg DAILY [facility] Administration Prednisone 40 mg 09/21/18 10:00 09/21/18 12:13 Deltasone - PO 40 mg DAILY [facility] Administration ASSESSMENT/PLAN: Patient is a 53 year old female with a significant past medical history of polysubstance abuse (crack/cocaine), anxiety, depression, COPD, active smoker and hypertension. Patient presents to [facility] on 09/15/2018 from [facility] (detox ) with shortness of breath with dry cough. Pulmonary COPD exacerbation. acute on chronic. Shortness of breath, with abdominal breathing, but was not wearing her oxygen on exam. Oxygen saturations 96% on 3 liter cannula. pre and post prior to d/c as she may require home oxygen. Chest xray without acute pathology. will repat chest xray today. Azithromycin antibiotic therapy completed today On rosemary Reyesbs scheduled. echo was normal. ID: Leukocytosis @ 21 Likely secondary to high dose steriods repeat blood cultures negative ID following patient will need one more sputum culture before d/c airborne isolation. Card: Hypertension On Procardia xl, labetalol hcl HLD: on Lipitor fen tolerating po protonix while on steriods disposition: full code. d/c to [facility] when cleared by pulmonary and ID. Visit type - Emergency Visit Emergency Visit: Yes ED Registration Date: 09/15/18 Care time: The patient presented to the Emergency Department on the above date and was hospitalized for further evaluation of their emergent condition. - New Patient This patient is new to me today: No - Critical Care Critical Care patient: No - Discharge Referral Referred to [facility] Med P.C.: No
--- NOTE | 2018-09-21 17:28 | PN ---
Progress Note (short form) - Note Progress Note: PULMONARY SITTING UP IN BED APPEARS STABLE VSS/AFEBRILE AFBX2 - ANICTERIC CHEST CLEAR S1W2 BS= NO EDEMA LABS/MEDS/NOTES/IMAGES REVIEWED - Problems (1) COPD exacerbation Code(s): J44.1 - CHRONIC OBSTRUCTIVE PULMONARY DISEASE W (ACUTE) EXACERBATION (2) Acute bronchitis Code(s): J20.9 - ACUTE BRONCHITIS, UNSPECIFIED (3) Anxiety Code(s): F41.9 - ANXIETY DISORDER, UNSPECIFIED (4) Nicotine dependence Code(s): F17.200 - NICOTINE DEPENDENCE, UNSPECIFIED, UNCOMPLICATED Qualifiers: Nicotine product type: cigarettes Substance use status: uncomplicated Qualified Code(s): F17.210 - Nicotine dependence, cigarettes, uncomplicated (5) Hypertension Code(s): I10 - ESSENTIAL (PRIMARY) HYPERTENSION Acute COPD Exacerbation improving Acute Bronchitis HTN Polysubstance Abuse Smoker - prednisone - inhaled bronchodilators standing and PRN - antibiotics - O2 to keep Spo2 >90% - smoking cessation - outpt PFTs - DVT prophylaxis - thyroid ultrasound Meredith ADAN MD
[2018-09-21] MEDS: ATORVASTATIN CA 10 MG TABLET (FP) PO SCH (21:27)
[2018-09-22] MEDS: ALBUTEROL SO4 2.5/IPRATROPIUM 0.5 INH SOL 3 ML VIAL.NEB. NEB SCH ×4 (07:25→19:40)
[2018-09-22 08:56] LABS: BASO % 0.8 % (0-2.0); EOS % 0.7 % (0-4.5); HEMATOCRIT 39.7 % (32.4-45.2); HEMOGLOBIN 12.8 GM/dL (10.7-15.3); LYMPH % 19.9 % (8-40); MCH 29.9 pg (25.7-33.7); MCHC 32.2 g/dl (32.0-36.0); MEAN CELL VOLUME 92.8 fl (80-96); MEAN PLT VOLUME 8.2 fl (7.5-11.1); MONO % 6.1 % (3.8-10.2); NEUT % 72.5 % (42.8-82.8); PLATELET COUNT 285 K/MM3 (134-434); RBC 4.28 M/mm3 (3.60-5.2); RDW 15.8 % (11.6-15.6); WHITE BLOOD COUNT 23.8 K/mm3 (4.0-10.0)
[2018-09-22 09:24] LABS: ALBUMIN 3.2 g/dl (3.4-5.0); ALK PHOS 92 U/L (45-117); ANION GAP 6 MMOL/L (8-16); BILIRUBIN,TOTAL 0.3 mg/dL (0.2-1); BLOOD UREA NITROGEN 25 mg/dL (7-18); CALCIUM 8.5 mg/dL (8.5-10.1); CHLORIDE 99 mmol/L (98-107); CO2 32 mmol/L (21-32); CREATININE 0.7 mg/dL (0.55-1.3); GLUCOSE,RANDOM 63 mg/dL (74-106); POTASSIUM 3.7 mmol/L (3.5-5.1); SGOT/AST 15 U/L (15-37); SGPT/ALT 65 U/L (13-61); SODIUM 138 mmol/L (136-145); TOT PROT 6.6 g/dl (6.4-8.2)
[2018-09-22] MEDS ORDERED: PT OWN MED DRAWER 7, Y5N ONE (11:09)
[2018-09-22] MEDS: PANTOPRAZOLE 40 MG TABLET (FP) PO SCH (11:16)
[2018-09-22] MEDS: LABETALOL HCL 100 MG TABLET (FP) PO SCH (11:16)
[2018-09-22] MEDS: HYDROCHLOROTHIAZIDE 12.5 MG CAPSULE (FP) PO SCH (11:16)
[2018-09-22] MEDS: BUDESONIDE/FORMETEROL FUMARATE 160/4.5 mcg INHALER IH SCH ×2 (11:17→21:34)
[2018-09-22] MEDS: predniSONE 20 MG TABLET (UD) PO SCH (11:17)
[2018-09-22] MEDS: NIFEdipine E.R. 90 MG TABLET (FP) PO SCH (11:17)
[2018-09-22] MEDS: ENOXAPARIN NA (PORCINE) 40 MG/0.4 ML DISP.SYRIN SQ SCH (11:17)
--- NOTE | 2018-09-22 11:26 | PN ---
Progress Note (short form) - Note Progress Note: PULMONARY SITTING UP IN BED APPEARS STABLE VSS/AFEBRILE AFBX2 - ANICTERIC CHEST MINOR WHEEZE SCATTERED S1W2 BS= NO [facility]DE[facility] LABS/MEDS/NOTES/IMAGES REVIEWED - Problems (1) COPD exacerbation Code(s): J44.1 - CHRONIC OBSTRUCTIVE PULMONARY DISEASE W (ACUTE) EXACERBATION (2) Acute bronchitis Code(s): J20.9 - ACUTE BRONCHITIS, UNSPECIFIED (3) Anxiety Code(s): F41.9 - ANXIETY DISORDER, UNSPECIFIED (4) Nicotine dependence Code(s): F17.200 - NICOTINE DEPENDENCE, UNSPECIFIED, UNCOMPLICATED Qualifiers: Nicotine product type: cigarettes Substance use status: uncomplicated Qualified Code(s): F17.210 - Nicotine dependence, cigarettes, uncomplicated (5) Hypertension Code(s): I10 - ESSENTIAL (PRIMARY) HYPERTENSION Acute COPD Exacerbation improving Acute Bronchitis HTN Polysubstance Abuse Smoker - prednisone - inhaled bronchodilators standing and PRN - antibiotics - O2 to keep Spo2 >90% - smoking cessation - outpt PFTs - DVT prophylaxis - Check 3rd afb pending Meredith ADAN MD
[2018-09-22 12:21] LABS: PLATELET ESTIMATE ADEQUATE
--- NOTE | 2018-09-22 13:49 | PN ---
Progress Note, Physician History of Present Illness: stable breathing better afb pending 3rd - Current Medication List Current Medications: Active Medications Acetaminophen (Tylenol Oral Solution -) 650 mg PO Q6H PRN PRN Reason: FEVER Last Admin: 09/17/18 14:34 Dose: 650 mg Albuterol Sulfate (Ventolin 0.083% Nebulizer Soln -) 1 amp NEB RQ4H PRN PRN Reason: Dyspnea Albuterol/Ipratropium (Duoneb -) 1 amp NEB RQID [facility] Last Admin: 09/22/18 11:20 Dose: 1 amp Atorvastatin Calcium (Lipitor -) 10 mg PO HS [facility] Last Admin: 09/21/18 21:27 Dose: 10 mg Budesonide/Formoterol Fumarate (Symbicort 160/4.5mcg -) 2 puff IH BID [facility] Last Admin: 09/22/18 11:17 Dose: 2 puff Enoxaparin Sodium (Lovenox -) 40 mg SQ DAILY [facility] Last Admin: 09/22/18 11:17 Dose: 40 mg Guaifenesin (Robitussin -) 10 ml PO Q6H PRN PRN Reason: COUGH Last Admin: 09/17/18 09:44 Dose: 10 ml Hydrochlorothiazide (Hctz -) 12.5 mg PO DAILY [facility] Last Admin: 09/22/18 11:16 Dose: 12.5 mg Labetalol HCl (Normodyne -) 100 mg PO DAILY [facility] Last Admin: 09/22/18 11:16 Dose: 100 mg Nifedipine (Procardia Xl -) 90 mg PO DAILY [facility] Last Admin: 09/22/18 11:17 Dose: 90 mg Pantoprazole Sodium (Protonix -) 40 mg PO DAILY [facility] Last Admin: 09/22/18 11:16 Dose: 40 mg Prednisone (Deltasone -) 40 mg PO DAILY [facility] Last Admin: 09/22/18 11:17 Dose: 40 mg - Objective Vital Signs: Vital Signs Temperature 98.4 F 09/22/18 06:00 Pulse Rate 115 H 09/22/18 11:41 Respiratory Rate 19 09/22/18 02:00 Blood Pressure 106/70 09/22/18 06:00 O2 Sat by Pulse Oximetry (%) 93 L 09/22/18 11:41 Constitutional: Yes: No Distress, Calm Cardiovascular: Yes: Regular Rate and Rhythm Respiratory: Yes: On Nasal O2, Poor Air Entry Gastrointestinal: Yes: Normal Bowel Sounds, Soft Musculoskeletal: Yes: WNL Extremities: Yes: WNL Labs: CBC, BMP 09/22/18 08:00 09/22/18 08:00 Assessment/Plan Assessment/Plan Problem List - Problems (1) COPD exacerbation Code(s): J44.1 - CHRONIC OBSTRUCTIVE PULMONARY DISEASE W (ACUTE) EXACERBATION (2) Acute bronchitis Code(s): J20.9 - ACUTE BRONCHITIS, UNSPECIFIED (3) Anxiety Code(s): F41.9 - ANXIETY DISORDER, UNSPECIFIED (4) Nicotine dependence Code(s): F17.200 - NICOTINE DEPENDENCE, UNSPECIFIED, UNCOMPLICATED Qualifiers: Nicotine product type: cigarettes Substance use status: uncomplicated Qualified Code(s): F17.210 - Nicotine dependence, cigarettes, uncomplicated (5) Hypertension Code(s): I10 - ESSENTIAL (PRIMARY) HYPERTENSION sputum cx negative so far plan stop zithro after 5 days resp monitoring rest as per the team await for the final afb report
--- NOTE | 2018-09-22 15:09 | PN ---
Physical Exam: SUBJECTIVE: Patient seen and examined at the bedside. Patient denies any shortness of breath on exam. states she is homeless, no family support or any one to turn to. wants to go to [facility]. she is afraid of using drugs. long conversation regarding stopping drugs, getting her life back together. OBJECTIVE: awaiting 3rd sputume afb before d/c airborne precautions patient does not qualify for home oxygen per pre and post discharge planning Vital Signs Period Temp Pulse Resp BP Sys/Weiner Pulse Ox Last 24 Hr 98.0 F-98.4 F 77-115 19-20 106-120/66-75 93-98 GENERAL: The patient is awake, alert, and fully oriented, in no acute distress. HEAD: Normal with no signs of trauma. EYES: PERRL, extraocular movements intact, sclera anicteric, conjunctiva clear. No ptosis. ENT: Ears normal, nares patent, oropharynx clear without exudates, moist mucous membranes. NECK: Trachea midline, full range of motion, supple. LUNGS: diminished lungs bilaterally, no wheezing HEART: sinus tachy on hospital monitor ABDOMEN: Soft, nontender, nondistended, normoactive bowel sounds, no guarding, no rebound, no hepatosplenomegaly, no masses. EXTREMITIES: 2+ pulses, warm, well-perfused, no edema. NEUROLOGICAL: Normal speech, gait steady PSYCH: Normal mood, normal affect. SKIN: Warm, dry, normal turgor, no rashes or lesions noted Laboratory Results - last 24 hr 09/22/18 09/22/18 08:00 08:00 WBC 23.8 H RBC 4.28 Hgb 12.8 Hct 39.7 MCV 92.8 MCH 29.9 MCHC 32.2 RDW 15.8 H Plt Count 285 MPV 8.2 Absolute Neuts (auto) 17.3 H Total Counted 100 Neutrophils % 72.5 Neutrophils % (Manual) 63.0 Band Neutrophils % 2.0 Lymphocytes % 19.9 D Lymphocytes % (Manual) 29.0 D Monocytes % 6.1 Monocytes % (Manual) 4 Eosinophils % 0.7 D Eosinophils % (Manual) 1.0 D Basophils % 0.8 Myelocytes % (Man) 1 Nucleated RBC % 0 Platelet Estimate Adequate Sodium 138 Potassium 3.7 Chloride 99 Carbon Dioxide 32 Anion Gap 6 L BUN 25 H Creatinine 0.7 Creat Clearance w eGFR > 60 Random Glucose 63 L Calcium 8.5 Total Bilirubin 0.3 AST 15 ALT 65 H Alkaline Phosphatase 92 Total Protein 6.6 Albumin 3.2 L Active Medications Generic Name Dose Route Start Last Admin Trade Name Freq PRN Reason Stop Dose Admin Acetaminophen 650 mg 09/16/18 10:44 09/17/18 14:34 Tylenol Oral Solution - PO 650 mg Q6H PRN Administration FEVER Albuterol Sulfate 1 amp 09/15/18 23:41 Ventolin 0.083% Nebulizer Soln - NEB RQ4H PRN Dyspnea Albuterol/Ipratropium 1 amp 09/16/18 08:00 09/22/18 11:20 Duoneb - NEB 1 amp RQID BETH Administration Atorvastatin Calcium 10 mg 09/16/18 22:00 09/21/18 21:27 Lipitor - PO 10 mg HS BETH Administration Budesonide/Formoterol Fumarate 2 puff 09/15/18 23:45 09/22/18 11:17 Symbicort 160/4.5mcg - IH 2 puff BID BETH Administration Enoxaparin Sodium 40 mg 09/16/18 10:00 09/22/18 11:17 Lovenox - SQ 40 mg DAILY BETH Administration Guaifenesin 10 ml 09/17/18 09:29 09/17/18 09:44 Robitussin - PO 10 ml Q6H PRN Administration COUGH Hydrochlorothiazide 12.5 mg 09/16/18 10:00 09/22/18 11:16 Hctz - PO 12.5 mg DAILY BETH Administration Labetalol HCl 100 mg 09/16/18 10:00 09/22/18 11:16 Normodyne - PO 100 mg DAILY BETH Administration Nifedipine 90 mg 09/15/18 20:15 09/22/18 11:17 Procardia Xl - PO 90 mg DAILY BETH Administration Pantoprazole Sodium 40 mg 09/20/18 10:00 09/22/18 11:16 Protonix - PO 40 mg DAILY BETH Administration Prednisone 40 mg 09/21/18 10:00 09/22/18 11:17 Deltasone - PO 40 mg DAILY BETH Administration ASSESSMENT/PLAN: Patient is a 53 year old female with a significant past medical history of polysubstance abuse (crack/cocaine), anxiety, depression, COPD and hypertension and TB 20 years ago with 6 month treatment. Patient presents to [facility] on 2017 from [facility] (detox) with shortness of breath with dry cough. Pulmonary COPD exacerbation, resolved Shortness of breath, resolved On Prednisone 40mg dialy Tolerating room air, does not qualify for home oxygen On duonebs Chest xray without acute pathology Completed antibiotics On Symbicort ID: Leukocytosis Likely secondary to high dose steriods repeat blood cultures negative ID following Card: Hypertension. controlled On Procardia xl, labetalol hcl HLD: on Lipitor fen tolerating po protonix while on steriods disposition: full code. d/c to [facility] when cleared by pulmonary. Awaiting 3rd and final afb culture. Visit type - Emergency Visit Emergency Visit: Yes ED Registration Date: 09/15/18 Care time: The patient presented to the Emergency Department on the above date and was hospitalized for further evaluation of their emergent condition. - New Patient This patient is new to me today: No - Critical Care Critical Care patient: No - Discharge Referral Referred to [facility] Med P.C.: No
[2018-09-22] MEDS: ATORVASTATIN CA 10 MG TABLET (FP) PO SCH (21:34)
[2018-09-23] MEDS: ALBUTEROL SO4 2.5/IPRATROPIUM 0.5 INH SOL 3 ML VIAL.NEB. NEB SCH ×3 (07:10→15:41)
[2018-09-23 07:32] LABS: BASO % 0.5 % (0-2.0); EOS % 0.6 % (0-4.5); HEMATOCRIT 35.3 % (32.4-45.2); HEMOGLOBIN 11.4 GM/dL (10.7-15.3); LYMPH % 24.9 % (8-40); MCH 29.8 pg (25.7-33.7); MCHC 32.3 g/dl (32.0-36.0); MEAN CELL VOLUME 92.4 fl (80-96); MEAN PLT VOLUME 8.1 fl (7.5-11.1); MONO % 6.2 % (3.8-10.2); NEUT % 67.8 % (42.8-82.8); PLATELET COUNT 271 K/MM3 (134-434); RBC 3.82 M/mm3 (3.60-5.2); RDW 15.4 % (11.6-15.6); WHITE BLOOD COUNT 23.4 K/mm3 (4.0-10.0)
[2018-09-23 08:22] LABS: ALBUMIN 2.8 g/dl (3.4-5.0); ALK PHOS 75 U/L (45-117); ANION GAP 7 MMOL/L (8-16); BILIRUBIN,TOTAL 0.3 mg/dL (0.2-1); BLOOD UREA NITROGEN 29 mg/dL (7-18); CALCIUM 8.3 mg/dL (8.5-10.1); CHLORIDE 100 mmol/L (98-107); CO2 31 mmol/L (21-32); CREATININE 0.7 mg/dL (0.55-1.3); GLUCOSE,RANDOM 68 mg/dL (74-106); MAGNESIUM 2.3 mg/dL (1.8-2.4); POTASSIUM 3.8 mmol/L (3.5-5.1); SGOT/AST 16 U/L (15-37); SGPT/ALT 64 U/L (13-61); SODIUM 138 mmol/L (136-145); TOT PROT 5.7 g/dl (6.4-8.2)
[2018-09-23 10:34] LABS: ANISOCYTOSIS 0; MACROCYTOSIS 0; PLATELET ESTIMATE NORMAL
[2018-09-23] MEDS: NIFEdipine E.R. 90 MG TABLET (FP) PO SCH (10:58)
[2018-09-23] MEDS: predniSONE 20 MG TABLET (UD) PO SCH (10:58)
[2018-09-23] MEDS: PANTOPRAZOLE 40 MG TABLET (FP) PO SCH (10:58)
[2018-09-23] MEDS: HYDROCHLOROTHIAZIDE 12.5 MG CAPSULE (FP) PO SCH (10:59)
[2018-09-23] MEDS: ENOXAPARIN NA (PORCINE) 40 MG/0.4 ML DISP.SYRIN SQ SCH (10:59)
[2018-09-23] MEDS: BUDESONIDE/FORMETEROL FUMARATE 160/4.5 mcg INHALER IH SCH (10:59)
[2018-09-23] MEDS: LABETALOL HCL 100 MG TABLET (FP) PO SCH (10:59)
--- NOTE | 2018-09-23 11:33 | PN ---
Physical Exam: SUBJECTIVE: Patient seen and examined OBJECTIVE: awaiting 3rd and final sputum afb, still pending Vital Signs Period Temp Pulse Resp BP Sys/Weiner Pulse Ox Last 24 Hr 98.0 F-98.6 F 87-115 20-20 102-116/54-69 93-97 GENERAL: The patient is awake, alert, and fully oriented, in no acute distress. HEAD: Normal with no signs of trauma. EYES: PERRL, extraocular movements intact, sclera anicteric, conjunctiva clear. No ptosis. ENT: Ears normal, nares patent, oropharynx clear without exudates, moist mucous membranes. NECK: Trachea midline, full range of motion, supple. LUNGS: diminished lungs bilaterally, no wheezing HEART: sinus tachy on cardiac sonographer ABDOMEN: Soft, nontender, nondistended, normoactive bowel sounds, no guarding, no rebound, no hepatosplenomegaly, no masses. EXTREMITIES: 2+ pulses, warm, well-perfused, no edema. NEUROLOGICAL: Normal speech, gait steady PSYCH: Normal mood, normal affect. SKIN: Warm, dry, normal turgor, no rashes or lesions noted Laboratory Results - last 24 hr 09/22/18 09/23/18 09/23/18 08:00 06:30 06:30 WBC 23.4 H RBC 3.82 Hgb 11.4 Hct 35.3 MCV 92.4 MCH 29.8 MCHC 32.3 RDW 15.4 Plt Count 271 MPV 8.1 Absolute Neuts (auto) 15.9 H Total Counted 100 Neutrophils % 67.8 Neutrophils % (Manual) 63.0 62.9 Band Neutrophils % 2.0 2.1 Lymphocytes % 24.9 D Lymphocytes % (Manual) 29.0 D 22.7 D Monocytes % 6.2 Monocytes % (Manual) 4 6 Eosinophils % 0.6 Eosinophils % (Manual) 1.0 D 0.0 D Basophils % 0.5 Basophils % (Manual) 0.0 Myelocytes % (Man) 1 0 Promyelocytes % (Man) 0 Blast Cells % (Manual) 0 Nucleated RBC % 0 Metamyelocytes 1 D Hypochromia 0 Platelet Estimate Adequate Normal Polychromasia 0 Poikilocytosis 0 Anisocytosis 0 Microcytosis 0 Macrocytosis 0 Sodium 138 Potassium 3.8 Chloride 100 Carbon Dioxide 31 Anion Gap 7 L BUN 29 H Creatinine 0.7 Creat Clearance w eGFR > 60 Random Glucose 68 L Calcium 8.3 L Magnesium 2.3 Total Bilirubin 0.3 AST 16 ALT 64 H Alkaline Phosphatase 75 Total Protein 5.7 L Albumin 2.8 L Active Medications Generic Name Dose Route Start Last Admin Trade Name Freq PRN Reason Stop Dose Admin Acetaminophen 650 mg 09/16/18 10:44 09/17/18 14:34 Tylenol Oral Solution - PO 650 mg Q6H PRN Administration FEVER Albuterol Sulfate 1 amp 09/15/18 23:41 09/23/18 03:13 Ventolin 0.083% Nebulizer Soln - NEB 1 amp RQ4H PRN Administration Dyspnea Albuterol/Ipratropium 1 amp 09/16/18 08:00 09/23/18 07:10 Duoneb - NEB 1 amp RQID BETH Administration Atorvastatin Calcium 10 mg 09/16/18 22:00 09/22/18 21:34 Lipitor - PO 10 mg HS BETH Administration Budesonide/Formoterol Fumarate 2 puff 09/15/18 23:45 09/23/18 10:59 Symbicort 160/4.5mcg - IH 2 puff BID BETH Administration Enoxaparin Sodium 40 mg 09/16/18 10:00 09/23/18 10:59 Lovenox - SQ 40 mg DAILY BETH Administration Guaifenesin 10 ml 09/17/18 09:29 09/17/18 09:44 Robitussin - PO 10 ml Q6H PRN Administration COUGH Hydrochlorothiazide 12.5 mg 09/16/18 10:00 09/23/18 10:59 Hctz - PO 12.5 mg DAILY BETH Administration Labetalol HCl 100 mg 09/16/18 10:00 09/23/18 10:59 Normodyne - PO 100 mg DAILY BETH Administration Nifedipine 90 mg 09/15/18 20:15 09/23/18 10:58 Procardia Xl - PO Not Given DAILY BETH Pantoprazole Sodium 40 mg 09/20/18 10:00 09/23/18 10:58 Protonix - PO 40 mg DAILY BETH Administration Prednisone 40 mg 09/21/18 10:00 09/23/18 10:58 Deltasone - PO 40 mg DAILY BETH Administration ASSESSMENT/PLAN: Patient is a 53 year old female with a significant past medical history of polysubstance abuse (crack/cocaine), anxiety, depression, COPD and hypertension and TB 20 years ago with 6 month treatment. Patient presents to [facility] on 2017 from [facility] (detox) with shortness of breath with dry cough. Pulmonary COPD exacerbation, resolved Shortness of breath, resolved On Prednisone 40mg daily Tolerating room air, does not qualify for home oxygen On duonebs Chest xray without acute pathology Completed antibiotics On Symbicort ID: Leukocytosis Likely secondary to high dose steriods repeat blood cultures negative no signs of infection ID following Card: Hypertension. controlled On Procardia xl, labetalol hcl HLD: on Lipitor fen tolerating po protonix while on steriods disposition: full code. d/c to [facility]. Awaiting 3rd and final afb culture. Visit type - Emergency Visit Emergency Visit: Yes ED Registration Date: 09/15/18 Care time: The patient presented to the Emergency Department on the above date and was hospitalized for further evaluation of their emergent condition. - New Patient This patient is new to me today: No - Critical Care Critical Care patient: No - Discharge Referral Referred to [facility] Med P.C.: No
--- NOTE | 2018-09-23 13:06 | PN ---
Progress Note (short form) - Note Progress Note: PULMONARY SITTING UP IN BED APPEARS STABLE VSS/AFEBRILE AFBX3 - ANICTERIC CHEST MINOR WHEEZE SCATTERED S1W2 BS= NO EDEMA LABS/MEDS/NOTES/IMAGES REVIEWED - Problems (1) COPD exacerbation Code(s): J44.1 - CHRONIC OBSTRUCTIVE PULMONARY DISEASE W (ACUTE) EXACERBATION (2) Acute bronchitis Code(s): J20.9 - ACUTE BRONCHITIS, UNSPECIFIED (3) Anxiety Code(s): F41.9 - ANXIETY DISORDER, UNSPECIFIED (4) Nicotine dependence Code(s): F17.200 - NICOTINE DEPENDENCE, UNSPECIFIED, UNCOMPLICATED Qualifiers: Nicotine product type: cigarettes Substance use status: uncomplicated Qualified Code(s): F17.210 - Nicotine dependence, cigarettes, uncomplicated (5) Hypertension Code(s): I10 - ESSENTIAL (PRIMARY) HYPERTENSION Acute COPD Exacerbation improving Acute Bronchitis HTN Polysubstance Abuse Smoker TBC ruled out - prednisone - inhaled bronchodilators standing and PRN - antibiotics - O2 to keep Spo2 >90% - smoking cessation - outpt PFTs - DVT prophylaxis - D/C DROPLET PRECAUTIONS Meredith ADAN MD
--- NOTE | 2018-09-23 15:12 | PN ---
Progress Note, Physician History of Present Illness: stable no new issues breathing better no complaints - Current Medication List Current Medications: Active Medications Acetaminophen (Tylenol Oral Solution -) 650 mg PO Q6H PRN PRN Reason: FEVER Last Admin: 09/17/18 14:34 Dose: 650 mg Albuterol Sulfate (Ventolin 0.083% Nebulizer Soln -) 1 amp NEB RQ4H PRN PRN Reason: Dyspnea Last Admin: 09/23/18 03:13 Dose: 1 amp Albuterol/Ipratropium (Duoneb -) 1 amp NEB RQID [facility] Last Admin: 09/23/18 11:35 Dose: 1 amp Atorvastatin Calcium (Lipitor -) 10 mg PO HS [facility] Last Admin: 09/22/18 21:34 Dose: 10 mg Budesonide/Formoterol Fumarate (Symbicort 160/4.5mcg -) 2 puff IH BID [facility] Last Admin: 09/23/18 10:59 Dose: 2 puff Enoxaparin Sodium (Lovenox -) 40 mg SQ DAILY [facility] Last Admin: 09/23/18 10:59 Dose: 40 mg Guaifenesin (Robitussin -) 10 ml PO Q6H PRN PRN Reason: COUGH Last Admin: 09/17/18 09:44 Dose: 10 ml Hydrochlorothiazide (Hctz -) 12.5 mg PO DAILY [facility] Last Admin: 09/23/18 10:59 Dose: 12.5 mg Labetalol HCl (Normodyne -) 100 mg PO DAILY [facility] Last Admin: 09/23/18 10:59 Dose: 100 mg Nifedipine (Procardia Xl -) 90 mg PO DAILY [facility] Last Admin: 09/23/18 10:58 Dose: Not Given Pantoprazole Sodium (Protonix -) 40 mg PO DAILY [facility] Last Admin: 09/23/18 10:58 Dose: 40 mg Prednisone (Deltasone -) 40 mg PO DAILY [facility] Last Admin: 09/23/18 10:58 Dose: 40 mg - Objective Vital Signs: Vital Signs Temperature 98.0 F 09/23/18 05:00 Pulse Rate 94 H 09/23/18 09:00 Respiratory Rate 18 09/23/18 09:00 Blood Pressure 102/63 09/23/18 09:00 O2 Sat by Pulse Oximetry (%) 97 09/23/18 09:00 Constitutional: Yes: No Distress, Calm Cardiovascular: Yes: S1, S2 Respiratory: Yes: On Nasal O2, Other Gastrointestinal: Yes: Normal Bowel Sounds, Soft Musculoskeletal: Yes: WNL Extremities: Yes: WNL Neurological: Yes: Alert, Oriented Psychiatric: Yes: Alert, Oriented Labs: CBC, BMP 09/23/18 06:30 09/23/18 06:30 Assessment/Plan Assessment/Plan Problem List - Problems (1) COPD exacerbation Code(s): J44.1 - CHRONIC OBSTRUCTIVE PULMONARY DISEASE W (ACUTE) EXACERBATION (2) Acute bronchitis Code(s): J20.9 - ACUTE BRONCHITIS, UNSPECIFIED (3) Anxiety Code(s): F41.9 - ANXIETY DISORDER, UNSPECIFIED (4) Nicotine dependence Code(s): F17.200 - NICOTINE DEPENDENCE, UNSPECIFIED, UNCOMPLICATED Qualifiers: Nicotine product type: cigarettes Substance use status: uncomplicated Qualified Code(s): F17.210 - Nicotine dependence, cigarettes, uncomplicated (5) Hypertension Code(s): I10 - ESSENTIAL (PRIMARY) HYPERTENSION sputum cx negative so far plan continue current mgmt resp support rest as per the team pul on case await for final cx report
[2018-09-23 15:39] VITALS: BP 110/55; PULSE 89; TEMP 98.1
--- NOTE | 2018-09-23 16:31 | DS ---
Physical Exam: SUBJECTIVE: Patient seen and examined at the bedside. OBJECTIVE: cleared by pulmonary for discharge off airborne precautions Vital Signs Period Temp Pulse Resp BP Sys/Weiner Pulse Ox Last 24 Hr 98.0 F-98.6 F 87-94 18-20 102-116/54-69 97-97 PHYSICAL EXAM GENERAL: The patient is awake, alert, and fully oriented, in no acute distress. HEAD: Normal with no signs of trauma. EYES: PERRL, extraocular movements intact, sclera anicteric, conjunctiva clear. No ptosis. ENT: Ears normal, nares patent, oropharynx clear without exudates, moist mucous membranes. NECK: Trachea midline, full range of motion, supple. LUNGS: diminished lungs bilaterally, no wheezing HEART: sinus tachy on quality assurance monitor final ABDOMEN: Soft, nontender, nondistended, normoactive bowel sounds, no guarding, no rebound, no hepatosplenomegaly, no masses. EXTREMITIES: 2+ pulses, warm, well-perfused, no edema. NEUROLOGICAL: Normal speech, gait steady PSYCH: Normal mood, normal affect. SKIN: Warm, dry, normal turgor, no rashes or lesions noted LABS Laboratory Results - last 24 hr 09/23/18 09/23/18 06:30 06:30 WBC 23.4 H RBC 3.82 Hgb 11.4 Hct 35.3 MCV 92.4 MCH 29.8 MCHC 32.3 RDW 15.4 Plt Count 271 MPV 8.1 Absolute Neuts (auto) 15.9 H Neutrophils % 67.8 Neutrophils % (Manual) 62.9 Band Neutrophils % 2.1 Lymphocytes % 24.9 D Lymphocytes % (Manual) 22.7 D Monocytes % 6.2 Monocytes % (Manual) 6 Eosinophils % 0.6 Eosinophils % (Manual) 0.0 D Basophils % 0.5 Basophils % (Manual) 0.0 Myelocytes % (Man) 0 Promyelocytes % (Man) 0 Blast Cells % (Manual) 0 Nucleated RBC % 0 Metamyelocytes 1 D Hypochromia 0 Platelet Estimate Normal Polychromasia 0 Poikilocytosis 0 Anisocytosis 0 Microcytosis 0 Macrocytosis 0 Sodium 138 Potassium 3.8 Chloride 100 Carbon Dioxide 31 Anion Gap 7 L BUN 29 H Creatinine 0.7 Creat Clearance w eGFR > 60 Random Glucose 68 L Calcium 8.3 L Magnesium 2.3 Total Bilirubin 0.3 AST 16 ALT 64 H Alkaline Phosphatase 75 Total Protein 5.7 L Albumin 2.8 L HOSPITAL COURSE: Patient is a 53 year old female with a significant past medical history of polysubstance abuse (crack/cocaine), anxiety, depression, COPD and hypertension and TB 20 years ago with 6 month treatment. Patient presents to [facility] on 2017 from [facility] (detox) with shortness of breath with dry cough. During hospitalization, patient was evaluated by pulmonary and infectious disease. Hospital course by problem list: Pulmonary COPD exacerbation, resolved Shortness of breath, resolved On Prednisone 40mg daily which should continue for 2 more days (stop on 09/25/2018 ) She was initially treated with IV steriods and oxygen therapy. She was also given a full course of IV antibiotics (Azithromycin). She was kept in isolation (droplet precautions) and TB since been ruled out by pulmonary. Her oxygen levels were tested and was found not to need home oxygen. Patient is to continue her bronchodilators and follow up with pulmonary outpatient for PFTs. ID: Leukocytosis. WBC elevated without evidence of infection. Leukocytosis likely secondary to steriod use. Her blood cultures are negative. Card: Hypertension. controlled. Continue Procardia xl, labetalol hcl HLD: on Lipitor Psyche Poly substance abuse. Patient to continue care at [facility] for her substance abuse. fen tolerating po protonix while on steriods Date of Admission:09/15/18 Date of Discharge: 09/23/18 Minutes to complete discharge: 60 Discharge Summary Reason For Visit: CHRONIC OBSTRUCTIVE PULMONARY DISEASE Current Active Problems Acute bronchitis (Acute) COPD exacerbation (Acute) COPD (chronic obstructive pulmonary disease) (Chronic) Condition: Improved - Instructions Diet, Activity, Other Instructions: Mrs Bauman: You were admitted on 09/15/2018 for acute COPD Exacerbation. Here are are recommendations: #COPD exacerbation On Prednisone 40mg daily, Continue this dose for 2 more days, then stop taking. You should follow up with Dr. Agrawal (contracting manager) within 1 week of discharge for follow up of your COPD. continue the nebulizers/bronchodilatoers as needed for shortness of breath. #High blood pressure. Continue Procardia and Labetelol Please return to the Ed if you become short of breath. Thank you for allowing us to care for you [facility] [phone] Referrals: Monserrat Barbosa MD [Staff Physician] - Disposition: [facility] - Home Medications Comprehensive Discharge Medication List: Ambulatory Orders Aclidinium [place] [Tudorza Pressair] 400 mcg IH DAILY 09/04/18 Albuterol Sulfate Inhaler - [Ventolin Hfa Inhaler -] 2 inh PO Q6H PRN 09/04/18 Budesonide/Formeterol Fumarate [SYMBICORT 160/4.5mcg -] 1 inh PO DAILY 09/04/18 Guaifenesin [Cough Syrup] 100 mg PO DAILY 09/04/18 Hydrochlorothiazide [Hctz -] 12.5 mg PO DAILY 09/04/18 Labetalol HCl 100 mg PO DAILY 09/04/18 Mirtazapine 30 mg PO DAILY 09/04/18 Multivitamins [Tab-A-Vit -] 1 tab PO DAILY 09/04/18 Nicotine Polacrilex [Nicotine Gum] 2 mg PO DAILY 09/04/18 Nifedipine [Procardia Xl] 30 mg PO DAILY 09/04/18 Sertraline HCl 50 mg PO DAILY 09/04/18 Simvastatin 20 mg PO DAILY 09/04/18 traZODone HCL [Trazodone HCl] 100 mg PO HS PRN 09/04/18 Prednisone [Deltasone] 20 mg PO 09/16/18 This patient is new to me today: No Emergency Visit: Yes ED Registration Date: 09/15/18 Care time: The patient presented to the Emergency Department on the above date and was hospitalized for further evaluation of their emergent condition. Critical Care patient: No - Discharge Referral Referred to [facility] Med P.C.: No
== END 2018-09-23 18:17 | disposition other institution (70) | DRG 140 ==
LOC: JER 19:21 → JERBED 22:46 → OBSVTOIN 23:46 → J8W 09-16 04:05 → J4W 09-17 17:55 → J6S 09-21 17:45
PROVIDERS: ADMIT Internal Medicine; ATTEND Nurse Practitioner Family
DX: J44.1 Chronic obstructive pulmonary disease with (acute) exacerbation (principal); J96.01 Acute respiratory failure with hypoxia; F17.210 Nicotine dependence, cigarettes, uncomplicated; F32.9 Major depressive disorder, single episode, unspecified; D72.829 Elevated white blood cell count, unspecified; J20.9 Acute bronchitis, unspecified; F14.20 Cocaine dependence, uncomplicated; I10 Essential (primary) hypertension; F41.8 Other specified anxiety disorders; E78.5 Hyperlipidemia, unspecified; R74.0 Nonspecific elevation of levels of transaminase and lactic acid dehydrogenase [LDH]
CPT/HCPCS: 36415; 36600; 71045-TC-FY; 71046-TC-FY; 71250-TC; 76705-TC; 80048; 80053; 80074; 82375; 82803; 83050; 83690; 83735; 84100; 84439; 84443; 84484; 85025; 85027; 85379; 87040; 87070; 87116; 87205; 87206; 87804; 93005; 93010; 93306-TC; 94640; 94761; 99282-25; 99285-25; G0378; J7030

== ENCOUNTER 2018-09-23 18:39 | Inpatient (IN) | payer OTHER ==
[2018-09-23 18:50] VITALS: BMI 30.7
--- NOTE | 2018-09-23 19:52 | HP ---
ASHOK TORRES Rehab Assess/Revision - Admission History Admitted to Rehab from: Emergency Department Date of Admission to Rehab: 09/23/2018 - Vital signs Vital Signs: Vital Signs Period Temp Pulse Resp BP Sys/Weiner Pulse Ox Last 24 Hr 97.7 F 90 18 116/70 - Findings Detox History & Physical reviewed: Yes Concur with findings: Yes Comments/Additional Findings: Patient treated at [facility] and COPD exacerbation, resolved. Shortness of breath, resolved. Saeed continue Prednisone 40mg daily for 2 more days (stop on 09/25/2018). TB ruled out by pulmonary. Her oxygen levels were tested and was found not to need home oxygen. Patient is to continue her bronchodilators and follow up with pulmonary outpatient for PFTs. Patient to continue rehab for poly-substance use disorder. Inpatient Rehab Admission - Initial Determination Are CD services needed?: Yes Free of communicable disease: Yes Not in need of hospitalization: Yes - Rehab Admission Criteria Previous failed treatment: Yes Poor recovery environment: Yes Comorbidities: Yes Lacks judgement: No Patient is meeting Inpatient Rehab admission criteria:: Yes
[2018-09-23] MEDS ORDERED: IBUPROFEN 400 MG TABLET (FP) PO PRN (20:46)
[2018-09-23] MEDS ORDERED: MAGNESIUM CITRATE 300 ML BOTTLE PO PRN (20:46)
[2018-09-23] MEDS ORDERED: MENTHOL/PHENOL 1 EACH UD MM PRN (20:46)
[2018-09-23] MEDS ORDERED: ACETAMINOPHEN 325 MG TABLET (FP) PO PRN (20:46)
[2018-09-23] MEDS ORDERED: LOPERAMIDE HCL 2 MG CAPSULE PO PRN (20:46)
[2018-09-23] MEDS ORDERED: MAG HYDROX/AL HYDROX/SIMETH 30 ML UNIT-DOSE CUP PO PRN (20:46)
[2018-09-23] MEDS ORDERED: MAGNESIUM HYDROX 2400MG/30ML ORAL SUSPENSION 30 ML CUP PO PRN (20:46)
[2018-09-23] MEDS ORDERED: MELATONIN 5 MG TABLETS PO PRN (22:00)
[2018-09-23] MEDS: THIAMINE HCL 100 MG TABLET (FP) PO SCH (22:53)
[2018-09-23] MEDS: ALBUTEROL SO4 2.5/IPRATROPIUM 0.5 INH SOL 3 ML VIAL.NEB. NEB PRN (22:54)
[2018-09-24] MEDS: ALBUTEROL SO4 2.5/IPRATROPIUM 0.5 INH SOL 3 ML VIAL.NEB. NEB PRN ×3 (06:11→19:38)
--- NOTE | 2018-09-24 06:52 | PN ---
Psychiatric Progress Note Vital Signs: Vital Signs Period Temp Pulse Resp BP Sys/Weiner Pulse Ox Last 24 Hr 97.7 F 90-92 17-18 115-116/70-70 Date of Session: 09/24/18 Chief Complaint:: Readmission Note HPI: Patient addressing alcohol and Cocaine Dependence comorbid with Nicotine Dependence and Substance-Induced Mood Disorder ROS: COPD/Asthma, HTN, HLD Current Medications: Active Medications Generic Name Dose Route Start Last Admin Trade Name Freq PRN Reason Stop Dose Admin Acetaminophen 650 mg 09/23/18 20:46 Tylenol - PO Q4H PRN FEVER Al Hydroxide/Mg Hydroxide 30 ml 09/23/18 20:46 Mylanta Oral Suspension - PO Q6H PRN DYSPEPSIA Albuterol Sulfate 2 puff 09/23/18 20:47 Ventolin Hfa Inhaler - IH Q6H PRN ASTHMA Albuterol/Ipratropium 1 amp 09/23/18 22:21 09/24/18 06:11 Duoneb - NEB 1 amp Q4H PRN Administration SHORTNESS OF BREATH Atorvastatin Calcium 10 mg 09/24/18 22:00 Lipitor - PO HS BETH Budesonide/Formoterol Fumarate 2 puff 09/24/18 10:00 Symbicort 160/4.5mcg - IH BID BETH Eucalyptus/Menthol/Phenol/Sorbitol 1 each 09/23/18 20:46 Cepastat Lozenge - MM Q4H PRN SORE THROAT Guaifenesin 10 ml 09/23/18 20:47 Robitussin - PO Q4H PRN COUGH Hydrochlorothiazide 12.5 mg 09/24/18 10:00 Hctz - PO DAILY [facility] Hydroxyzine Pamoate 25 mg 09/23/18 20:46 Vistaril - PO Q4H PRN AGITATION Ibuprofen 400 mg 09/23/18 20:46 Motrin - PO Q6H PRN Pain Level 4-6 Labetalol HCl 100 mg 09/24/18 10:00 Normodyne - PO DAILY [facility] Loperamide HCl 4 mg 09/23/18 20:46 Imodium - PO Q6H PRN DIARRHEA Magnesium Citrate 300 ml 09/23/18 20:46 Citroma - PO Q48H PRN CONSTIPATION Magnesium Hydroxide 30 ml 09/23/18 20:46 Milk Of Magnesia - PO DAILY PRN CONSTIPATION Melatonin 5 mg 09/23/18 22:00 Melatonin PO HS PRN INSOMNIA Nifedipine 90 mg 09/24/18 10:00 Procardia Xl - PO DAILY BETH Pantoprazole Sodium 40 mg 09/24/18 10:00 Protonix - PO DAILY BETH Prednisone 40 mg 09/24/18 10:00 Deltasone - PO 09/25/18 10:01 DAILY BETH Multivit/Folic Acid/Iron 1 tab 09/24/18 10:00 Vitamins (Sjr) - PO DAILY BETH Thiamine HCl 100 mg 09/23/18 22:00 09/23/18 22:53 Vitamin B1 - PO Not Given HS BETH Current Side Effect: No Lab tests ordered: Yes Lab tests reviewed: Yes Provider note:: Patient was originally admitted on 09/04/18 to for inpatient rehabilitation for alcohol and cocaine. On 09/14/18 she developed shortness of breath and was transferred to [facility] for evaluation. There, after evaluation, she was admitted and treated for exacerbation of COPD. Pulmonary TB was ruled out. She was discharged on and transferred back to [facility] to complete inpatient rehabilitation. Told commercial underwriter that she is doing fine except for difficulty to sleep since she was not continued on her medications while at [facility] Total face to face time:: 25 Mental Status Exam - Mental Status Exam Alert and Oriented to: Time, Place, Person Cognitive Function: Fair Patient Appearance: Well Groomed Mood: Hopeful, Euthymic Patient Behavior: Cooperative Speech Pattern: Clear Voice Loudness: Normal Thought Process: Intact Thought Disorder: Not Present Hallucinations: Denies Suicidal Ideation: Denies Homicidal Ideation: Denies Insight/Judgement: Fair Sleep: Poorly Appetite: Good Muscle strength/Tone: Normal Gait/Station: Normal Psychiatric Treatment Plan - Problem List (1) Alcohol dependence Current Visit: Yes (2) Cocaine dependence Current Visit: Yes (3) Nicotine dependence Current Visit: Yes (4) Substance induced mood disorder Current Visit: No (5) Acute bronchitis Current Visit: No (6) Asthma Current Visit: No Qualifiers: Asthma severity: moderate Asthma persistence: unspecified Asthma complication type: with acute exacerbation Qualified Code(s): J45.901 - Unspecified asthma with (acute) exacerbation (7) COPD exacerbation Current Visit: No (8) Hypercholesterolemia Current Visit: No (9) Hypertension Current Visit: No Qualifiers: Hypertension type: essential hypertension Qualified Code(s): I10 - Essential (primary) hypertension Initial treatment plan: 1) Resume Zoloft 50 mg po daily, Trazadone 100 mg po HS and Remeron 30 mg po HS. 2) Monitor progress
[2018-09-24] MEDS: NIFEdipine E.R. 90 MG TABLET (FP) PO SCH (09:46)
[2018-09-24] MEDS: predniSONE 20 MG TABLET (UD) PO SCH (09:46)
[2018-09-24] MEDS: HYDROCHLOROTHIAZIDE 12.5 MG CAPSULE (FP) PO SCH (09:46)
[2018-09-24] MEDS: LABETALOL HCL 100 MG TABLET (FP) PO SCH (09:46)
[2018-09-24] MEDS: PANTOPRAZOLE 40 MG TABLET (FP) PO SCH (09:46)
[2018-09-24] MEDS: PRENATAL VITAMINS W/ FOLIC ACID TABLET (FP) PO SCH (09:46)
[2018-09-24] MEDS: BUDESONIDE/FORMETEROL FUMARATE 160/4.5 mcg INHALER IH SCH ×2 (09:47→23:00)
[2018-09-24] MEDS: SERTRALINE HCL 50 MG TABLET (FP) PO SCH (11:52)
[2018-09-24] MEDS ORDERED: PT OWN MED DRAWER 7, Y5N ONE (21:17)
[2018-09-24] MEDS: MIRTAZAPINE 30 MG TABLET (FP) PO SCH (23:00)
[2018-09-24] MEDS: ATORVASTATIN CA 10 MG TABLET (FP) PO SCH (23:00)
[2018-09-24] MEDS: THIAMINE HCL 100 MG TABLET (FP) PO SCH (23:15)
[2018-09-25] MEDS: ALBUTEROL SO4 2.5/IPRATROPIUM 0.5 INH SOL 3 ML VIAL.NEB. NEB PRN ×3 (06:58→18:00)
[2018-09-25] MEDS: HYDROCHLOROTHIAZIDE 12.5 MG CAPSULE (FP) PO SCH (09:45)
[2018-09-25] MEDS: predniSONE 20 MG TABLET (UD) PO SCH (09:45)
[2018-09-25] MEDS: PANTOPRAZOLE 40 MG TABLET (FP) PO SCH (09:45)
[2018-09-25] MEDS: PRENATAL VITAMINS W/ FOLIC ACID TABLET (FP) PO SCH (09:45)
[2018-09-25] MEDS: LABETALOL HCL 100 MG TABLET (FP) PO SCH (09:45)
[2018-09-25] MEDS: SERTRALINE HCL 50 MG TABLET (FP) PO SCH (09:45)
[2018-09-25] MEDS: NIFEdipine E.R. 90 MG TABLET (FP) PO SCH (09:45)
[2018-09-25] MEDS: BUDESONIDE/FORMETEROL FUMARATE 160/4.5 mcg INHALER IH SCH ×2 (09:46→21:16)
[2018-09-25] MEDS: traZODone HCL 100 MG TABLET (FP) PO PRN (21:15)
[2018-09-25] MEDS: THIAMINE HCL 100 MG TABLET (FP) PO SCH (21:15)
[2018-09-25] MEDS: ATORVASTATIN CA 10 MG TABLET (FP) PO SCH (21:15)
[2018-09-25] MEDS: MIRTAZAPINE 30 MG TABLET (FP) PO SCH (21:15)
[2018-09-25] MEDS ORDERED: PT OWN MED DRAWER 7, Y5N ONE (21:16)
[2018-09-26] MEDS ORDERED: PT OWN MED DRAWER 7, Y5N ONE (08:31)
[2018-09-26] MEDS: ALBUTEROL SO4 2.5/IPRATROPIUM 0.5 INH SOL 3 ML VIAL.NEB. NEB PRN ×3 (08:41→20:46)
[2018-09-26] MEDS: guaiFENesin 200 MG/10 ML 10 ML UNIT-DOSE CUPS PO PRN (09:32)
[2018-09-26] MEDS: PRENATAL VITAMINS W/ FOLIC ACID TABLET (FP) PO SCH (09:32)
[2018-09-26] MEDS: SERTRALINE HCL 50 MG TABLET (FP) PO SCH (09:32)
[2018-09-26] MEDS: NIFEdipine E.R. 90 MG TABLET (FP) PO SCH (09:32)
[2018-09-26] MEDS: LABETALOL HCL 100 MG TABLET (FP) PO SCH (09:33)
[2018-09-26] MEDS: HYDROCHLOROTHIAZIDE 12.5 MG CAPSULE (FP) PO SCH (09:33)
[2018-09-26] MEDS: PANTOPRAZOLE 40 MG TABLET (FP) PO SCH (09:33)
[2018-09-26] MEDS: BUDESONIDE/FORMETEROL FUMARATE 160/4.5 mcg INHALER IH SCH ×2 (09:34→21:17)
[2018-09-26] MEDS: THIAMINE HCL 100 MG TABLET (FP) PO SCH (21:17)
[2018-09-26] MEDS: traZODone HCL 100 MG TABLET (FP) PO PRN (21:17)
[2018-09-26] MEDS: MIRTAZAPINE 30 MG TABLET (FP) PO SCH (21:17)
[2018-09-26] MEDS: ATORVASTATIN CA 10 MG TABLET (FP) PO SCH (21:17)
[2018-09-27] MEDS: ALBUTEROL SO4 2.5/IPRATROPIUM 0.5 INH SOL 3 ML VIAL.NEB. NEB PRN ×5 (04:28→22:24)
[2018-09-27] MEDS ORDERED: PT OWN MED DRAWER 7, Y5N ONE ×3 (08:45→21:23)
[2018-09-27] MEDS: PANTOPRAZOLE 40 MG TABLET (FP) PO SCH (09:45)
[2018-09-27] MEDS: LABETALOL HCL 100 MG TABLET (FP) PO SCH (09:45)
[2018-09-27] MEDS: SERTRALINE HCL 50 MG TABLET (FP) PO SCH (09:45)
[2018-09-27] MEDS: NIFEdipine E.R. 90 MG TABLET (FP) PO SCH (09:45)
[2018-09-27] MEDS: PRENATAL VITAMINS W/ FOLIC ACID TABLET (FP) PO SCH (09:45)
[2018-09-27] MEDS: HYDROCHLOROTHIAZIDE 12.5 MG CAPSULE (FP) PO SCH (09:45)
[2018-09-27] MEDS: BUDESONIDE/FORMETEROL FUMARATE 160/4.5 mcg INHALER IH SCH ×2 (09:46→21:22)
[2018-09-27] MEDS: ALBUTEROL SO4 8 GM HFA INHALER IH PRN (09:49)
[2018-09-27] MEDS: MIRTAZAPINE 30 MG TABLET (FP) PO SCH (21:22)
[2018-09-27] MEDS: ATORVASTATIN CA 10 MG TABLET (FP) PO SCH (21:22)
[2018-09-27] MEDS: traZODone HCL 100 MG TABLET (FP) PO PRN (21:22)
[2018-09-27] MEDS: THIAMINE HCL 100 MG TABLET (FP) PO SCH (21:22)
[2018-09-28] MEDS: ALBUTEROL SO4 2.5/IPRATROPIUM 0.5 INH SOL 3 ML VIAL.NEB. NEB PRN ×3 (07:38→18:19)
[2018-09-28] MEDS: PRENATAL VITAMINS W/ FOLIC ACID TABLET (FP) PO SCH (10:13)
[2018-09-28] MEDS: PANTOPRAZOLE 40 MG TABLET (FP) PO SCH (10:13)
[2018-09-28] MEDS: SERTRALINE HCL 50 MG TABLET (FP) PO SCH (10:13)
[2018-09-28] MEDS: NIFEdipine E.R. 90 MG TABLET (FP) PO SCH (10:13)
[2018-09-28] MEDS: LABETALOL HCL 100 MG TABLET (FP) PO SCH (10:13)
[2018-09-28] MEDS: HYDROCHLOROTHIAZIDE 12.5 MG CAPSULE (FP) PO SCH (10:13)
[2018-09-28] MEDS: BUDESONIDE/FORMETEROL FUMARATE 160/4.5 mcg INHALER IH SCH ×2 (10:14→21:18)
[2018-09-28] MEDS: CLOTRIMAZOLE 10 MG TROCHE (FP) PO SCH ×3 (16:35→21:17)
[2018-09-28] MEDS: THIAMINE HCL 100 MG TABLET (FP) PO SCH (21:17)
[2018-09-28] MEDS: MIRTAZAPINE 30 MG TABLET (FP) PO SCH (21:18)
[2018-09-28] MEDS: ATORVASTATIN CA 10 MG TABLET (FP) PO SCH (21:18)
[2018-09-28] MEDS: traZODone HCL 100 MG TABLET (FP) PO PRN (21:18)
[2018-09-29] MEDS: ALBUTEROL SO4 2.5/IPRATROPIUM 0.5 INH SOL 3 ML VIAL.NEB. NEB PRN ×5 (04:06→22:28)
[2018-09-29] MEDS: CLOTRIMAZOLE 10 MG TROCHE (FP) PO SCH ×5 (07:04→22:27)
[2018-09-29] MEDS: PRENATAL VITAMINS W/ FOLIC ACID TABLET (FP) PO SCH (09:16)
[2018-09-29] MEDS: HYDROCHLOROTHIAZIDE 12.5 MG CAPSULE (FP) PO SCH (09:16)
[2018-09-29] MEDS: NIFEdipine E.R. 90 MG TABLET (FP) PO SCH (09:16)
[2018-09-29] MEDS: LABETALOL HCL 100 MG TABLET (FP) PO SCH (09:16)
[2018-09-29] MEDS: BUDESONIDE/FORMETEROL FUMARATE 160/4.5 mcg INHALER IH SCH ×2 (09:17→22:30)
[2018-09-29] MEDS: PANTOPRAZOLE 40 MG TABLET (FP) PO SCH (09:17)
[2018-09-29] MEDS: SERTRALINE HCL 50 MG TABLET (FP) PO SCH (09:17)
[2018-09-29] MEDS: THIAMINE HCL 100 MG TABLET (FP) PO SCH (22:27)
[2018-09-29] MEDS: ATORVASTATIN CA 10 MG TABLET (FP) PO SCH (22:27)
[2018-09-29] MEDS: MIRTAZAPINE 30 MG TABLET (FP) PO SCH (22:27)
[2018-09-29] MEDS: traZODone HCL 100 MG TABLET (FP) PO PRN (22:27)
[2018-09-29] MEDS ORDERED: PT OWN MED DRAWER 7, Y5N ONE (22:30)
[2018-09-30] MEDS: ALBUTEROL SO4 2.5/IPRATROPIUM 0.5 INH SOL 3 ML VIAL.NEB. NEB PRN ×5 (03:30→23:03)
[2018-09-30] MEDS ORDERED: ALBUTEROL SO4 0.083% IH SOL 2.5 MG/3 ML VIAL.NEB. NEB ONE ×2 (04:00→04:13)
[2018-09-30] MEDS: CLOTRIMAZOLE 10 MG TROCHE (FP) PO SCH ×5 (08:05→21:31)
[2018-09-30] MEDS: ALBUTEROL SO4 8 GM HFA INHALER IH PRN (08:05)
[2018-09-30] MEDS: NIFEdipine E.R. 90 MG TABLET (FP) PO SCH (09:56)
[2018-09-30] MEDS: BUDESONIDE/FORMETEROL FUMARATE 160/4.5 mcg INHALER IH SCH ×2 (09:56→21:33)
[2018-09-30] MEDS: PRENATAL VITAMINS W/ FOLIC ACID TABLET (FP) PO SCH (09:57)
[2018-09-30] MEDS: SERTRALINE HCL 50 MG TABLET (FP) PO SCH (09:57)
[2018-09-30] MEDS: PANTOPRAZOLE 40 MG TABLET (FP) PO SCH (09:57)
[2018-09-30] MEDS: LABETALOL HCL 100 MG TABLET (FP) PO SCH (09:57)
[2018-09-30] MEDS: HYDROCHLOROTHIAZIDE 12.5 MG CAPSULE (FP) PO SCH (09:57)
[2018-09-30] MEDS ORDERED: PT OWN MED DRAWER 7, Y5N ONE (15:40)
[2018-09-30] MEDS: MIRTAZAPINE 30 MG TABLET (FP) PO SCH (21:31)
[2018-09-30] MEDS: THIAMINE HCL 100 MG TABLET (FP) PO SCH (21:31)
[2018-09-30] MEDS: ATORVASTATIN CA 10 MG TABLET (FP) PO SCH (21:31)
[2018-09-30] MEDS: traZODone HCL 100 MG TABLET (FP) PO PRN (21:31)
[2018-10-01] MEDS: ALBUTEROL SO4 2.5/IPRATROPIUM 0.5 INH SOL 3 ML VIAL.NEB. NEB PRN ×4 (03:11→22:43)
[2018-10-01] MEDS: hydrOXYzine PAMOATE 25 MG CAPSULE (FP) PO PRN ×4 (03:29→23:05)
[2018-10-01] MEDS: ALBUTEROL SO4 8 GM HFA INHALER IH PRN ×2 (03:30→09:45)
[2018-10-01] MEDS: CLOTRIMAZOLE 10 MG TROCHE (FP) PO SCH ×5 (07:41→21:16)
[2018-10-01] MEDS: LABETALOL HCL 100 MG TABLET (FP) PO SCH (09:41)
[2018-10-01] MEDS: HYDROCHLOROTHIAZIDE 12.5 MG CAPSULE (FP) PO SCH (09:41)
[2018-10-01] MEDS: PRENATAL VITAMINS W/ FOLIC ACID TABLET (FP) PO SCH (09:42)
[2018-10-01] MEDS: NIFEdipine E.R. 90 MG TABLET (FP) PO SCH (09:42)
[2018-10-01] MEDS: BUDESONIDE/FORMETEROL FUMARATE 160/4.5 mcg INHALER IH SCH ×2 (09:42→21:19)
[2018-10-01] MEDS: PANTOPRAZOLE 40 MG TABLET (FP) PO SCH (09:42)
[2018-10-01] MEDS: SERTRALINE HCL 50 MG TABLET (FP) PO SCH (09:44)
[2018-10-01] MEDS ORDERED: PT OWN MED DRAWER 7, Y5N ONE ×2 (19:46→21:17)
[2018-10-01] MEDS: ATORVASTATIN CA 10 MG TABLET (FP) PO SCH (21:15)
[2018-10-01] MEDS: traZODone HCL 100 MG TABLET (FP) PO PRN (21:15)
[2018-10-01] MEDS: THIAMINE HCL 100 MG TABLET (FP) PO SCH (21:15)
[2018-10-01] MEDS: MIRTAZAPINE 30 MG TABLET (FP) PO SCH (21:15)
[2018-10-02] MEDS: hydrOXYzine PAMOATE 25 MG CAPSULE (FP) PO PRN ×3 (03:20→14:39)
[2018-10-02] MEDS: ALBUTEROL SO4 2.5/IPRATROPIUM 0.5 INH SOL 3 ML VIAL.NEB. NEB PRN ×4 (03:20→21:13)
[2018-10-02] MEDS: CLOTRIMAZOLE 10 MG TROCHE (FP) PO SCH ×5 (07:35→21:15)
[2018-10-02] MEDS: ALBUTEROL SO4 8 GM HFA INHALER IH PRN (07:55)
[2018-10-02] MEDS: PRENATAL VITAMINS W/ FOLIC ACID TABLET (FP) PO SCH (09:19)
[2018-10-02] MEDS: PANTOPRAZOLE 40 MG TABLET (FP) PO SCH (09:19)
[2018-10-02] MEDS: NIFEdipine E.R. 90 MG TABLET (FP) PO SCH (09:20)
[2018-10-02] MEDS: SERTRALINE HCL 50 MG TABLET (FP) PO SCH (09:20)
[2018-10-02] MEDS: HYDROCHLOROTHIAZIDE 12.5 MG CAPSULE (FP) PO SCH (09:20)
[2018-10-02] MEDS: BUDESONIDE/FORMETEROL FUMARATE 160/4.5 mcg INHALER IH SCH ×2 (09:21→21:14)
[2018-10-02] MEDS: LABETALOL HCL 100 MG TABLET (FP) PO SCH (09:21)
[2018-10-02] MEDS ORDERED: COLLOIDAL OATMEAL 1 BAR EACH TP PRN (10:39)
--- NOTE | 2018-10-02 19:02 | PN ---
S Progress Note Note: Called to see pt who had called the ambulance for "breathing problems". When I got to the floor- pt was in common area and stated that the other pts on the floor called the ambulance for her. Pt states she has COPD and says she is short of breath. PE: pt was noted to be agitated, crying that she did not want to leave AMA and that she did not call 911. Pt was brought to her room by this time ambulance had arrived. MI 130, BP 140/80, pulse ox 95-96 RR 30's: pt was asked to calm down and take deep breaths lungs- clear heart RRR earlier today: Vital Signs - 24 hr 10/02/18 09:20 Pulse Rate 104 H Blood Pressure 131/87 a/p: anxiety: no evidence for asthma exacerbation- nl PE and good pulse ox. pt states she gets very anxious when she thinks of the future and being discharged from here- does not [facility] to go back to [facility]. Pt was able to calm down and explained to pt that if she needs medical care- the staff is available to give her appropriate Rx- albuterol nebulized Rx or steriods if needed. d/w pt and staff and the ambulance personnel in detail. There is no indication for pt to be transferred to hospital ER at this time.
[2018-10-02] MEDS ORDERED: hydrOXYzine PAMOATE 50 MG CAPSULE (FP) PO ONE (19:06)
[2018-10-02] MEDS: THIAMINE HCL 100 MG TABLET (FP) PO SCH (21:14)
[2018-10-02] MEDS: ATORVASTATIN CA 10 MG TABLET (FP) PO SCH (21:14)
[2018-10-02] MEDS: MIRTAZAPINE 30 MG TABLET (FP) PO SCH (21:14)
[2018-10-03] MEDS: ALBUTEROL SO4 2.5/IPRATROPIUM 0.5 INH SOL 3 ML VIAL.NEB. NEB PRN ×4 (05:04→19:11)
[2018-10-03] MEDS: CLOTRIMAZOLE 10 MG TROCHE (FP) PO SCH ×5 (07:02→21:42)
[2018-10-03] MEDS: ALBUTEROL SO4 8 GM HFA INHALER IH PRN ×2 (07:35→17:51)
[2018-10-03] MEDS: guaiFENesin 200 MG/10 ML 10 ML UNIT-DOSE CUPS PO PRN ×3 (07:37→21:42)
[2018-10-03] MEDS: LABETALOL HCL 100 MG TABLET (FP) PO SCH (10:12)
[2018-10-03] MEDS: SERTRALINE HCL 50 MG TABLET (FP) PO SCH (10:12)
[2018-10-03] MEDS: PRENATAL VITAMINS W/ FOLIC ACID TABLET (FP) PO SCH (10:12)
[2018-10-03] MEDS: HYDROCHLOROTHIAZIDE 12.5 MG CAPSULE (FP) PO SCH (10:12)
[2018-10-03] MEDS: PANTOPRAZOLE 40 MG TABLET (FP) PO SCH (10:12)
[2018-10-03] MEDS: NIFEdipine E.R. 90 MG TABLET (FP) PO SCH (10:12)
[2018-10-03] MEDS: BUDESONIDE/FORMETEROL FUMARATE 160/4.5 mcg INHALER IH SCH ×2 (10:14→21:39)
[2018-10-03] MEDS: hydrOXYzine PAMOATE 25 MG CAPSULE (FP) PO PRN ×2 (10:17→19:06)
[2018-10-03] MEDS ORDERED: PT OWN MED DRAWER 7, Y5N ONE (19:43)
[2018-10-03] MEDS: MIRTAZAPINE 30 MG TABLET (FP) PO SCH (21:39)
[2018-10-03] MEDS: ATORVASTATIN CA 10 MG TABLET (FP) PO SCH (21:39)
[2018-10-03] MEDS: THIAMINE HCL 100 MG TABLET (FP) PO SCH (21:39)
[2018-10-03] MEDS: traZODone HCL 100 MG TABLET (FP) PO PRN (21:39)
[2018-10-04] MEDS: ALBUTEROL SO4 2.5/IPRATROPIUM 0.5 INH SOL 3 ML VIAL.NEB. NEB PRN ×4 (03:14→22:04)
[2018-10-04] MEDS: guaiFENesin 200 MG/10 ML 10 ML UNIT-DOSE CUPS PO PRN ×2 (03:14→10:26)
[2018-10-04] MEDS: CLOTRIMAZOLE 10 MG TROCHE (FP) PO SCH ×5 (06:38→21:59)
[2018-10-04] MEDS: ALBUTEROL SO4 8 GM HFA INHALER IH PRN ×2 (06:38→15:13)
[2018-10-04] MEDS: HYDROCHLOROTHIAZIDE 12.5 MG CAPSULE (FP) PO SCH (10:23)
[2018-10-04] MEDS: LABETALOL HCL 100 MG TABLET (FP) PO SCH (10:23)
[2018-10-04] MEDS: PANTOPRAZOLE 40 MG TABLET (FP) PO SCH (10:23)
[2018-10-04] MEDS: NIFEdipine E.R. 90 MG TABLET (FP) PO SCH (10:23)
[2018-10-04] MEDS: SERTRALINE HCL 50 MG TABLET (FP) PO SCH (10:24)
[2018-10-04] MEDS: PRENATAL VITAMINS W/ FOLIC ACID TABLET (FP) PO SCH (10:24)
[2018-10-04] MEDS: BUDESONIDE/FORMETEROL FUMARATE 160/4.5 mcg INHALER IH SCH ×2 (10:24→21:40)
[2018-10-04] MEDS: THIAMINE HCL 100 MG TABLET (FP) PO SCH (21:40)
[2018-10-04] MEDS: MIRTAZAPINE 30 MG TABLET (FP) PO SCH (21:40)
[2018-10-04] MEDS: ATORVASTATIN CA 10 MG TABLET (FP) PO SCH (21:40)
[2018-10-04] MEDS: traZODone HCL 100 MG TABLET (FP) PO PRN (21:43)
[2018-10-05] MEDS: ALBUTEROL SO4 2.5/IPRATROPIUM 0.5 INH SOL 3 ML VIAL.NEB. NEB PRN ×2 (02:50→06:30)
[2018-10-05] MEDS: CLOTRIMAZOLE 10 MG TROCHE (FP) PO SCH ×4 (06:53→18:24)
--- NOTE | 2018-10-05 07:19 | PN ---
Jose Progress Note Note: Patient complained of shortness of breath. Nebulizer treatment administered by the nurse as order. Saturation 93% at room air and 97% with oxygen at 2 liters oper hour. She denies respiratory distress and she is tachycardic post treatment. Vital signs stable. Will monitor patient Vital Signs Temperature 99.5 F 10/05/18 01:53 Pulse Rate 125 H 10/05/18 01:53 Respiratory Rate 18 10/05/18 01:53 Blood Pressure 116/79 10/05/18 01:53 O2 Sat by Pulse Oximetry (%)
[2018-10-05 09:00] VITALS: BP 117/79; PULSE 115
[2018-10-05 09:12] VITALS: TEMP 98
--- NOTE | 2018-10-05 09:17 | PN ---
[facility] Progress Note Note: 9:00A.M 53 Y/O FEMALE PT WITH A HX OF COPD, ASTHMA AND HTN WITH C/O RESPIRATORY DISTRESS-SOB WITH DIZZINESS. PT WAS ADMITTED HERE TO DRUG REHAB WITH A HX COCAINE AND ALCOHOL DEPENDENCE. PT HAS HAD PREVIOUS RESPIRATORY EPISODES AND WAS RECENTLY INPATIENT FOR RESPIRATORY EPISODE FROM 09/15/18 TO 09/23/18 BEFORE COMING BACK TO [facility] TO CONTINUE REHAB SAME DAY. PT WAS SEEN AT BEDSIDE SITTING UP IN BED WITH OXYGEN IN PLACE. PT APPEARS SOB WITH SLIGHT DIFFICULTY BREATHING. PT IS EMOTIONALLY UPSET AND TEARY DUE TO CONDITION. THIS SHIFT NURSE REPORTS PT HAS BEEN HAVING DIFFICULTY WITH BREATHING SINCE DURING LAST NIGHT AND RECEIVED RESPIRATORY TREATMENT WITH MINIMAL RELIEF. NURSE ALSO REPORTS LOW GRADE TEMPS OF 100F AND 99.5F WITH OXYGEN SAT AT ROOM AIR 89% AT 8:30 A.M AND 94 % AT ABOUT 09:05 WITH O2 2L NC. Vital Signs - 24 hr 10/04/18 10/05/18 10/05/18 09:25 00:30 01:53 Temperature 99.5 F Pulse Rate 120 H 125 H Respiratory 18 18 Rate Blood Pressure 147/82 116/79 10/05/18 10/05/18 07:19 09:00 Temperature 98.6 F 98.0 F Pulse Rate 125 H 115 H Respiratory 18 17 Rate Blood Pressure 134/80 117/79 Home Medication List Medication Instructions Recorded Confirmed Type Aclidinium [place] [Tudorza 400 mcg IH DAILY 09/04/18 09/23/18 History Pressair] Albuterol Sulfate Inhaler - 2 inh PO Q6H PRN 09/04/18 09/23/18 History [Ventolin HFA Inhaler -] Budesonide/Formeterol Fumarate 1 inh PO DAILY 09/04/18 09/23/18 History [SYMBICORT 160/4.5mcg -] Hydrochlorothiazide [Hctz -] 12.5 mg PO DAILY 09/04/18 09/23/18 History Labetalol HCl 100 mg PO DAILY 09/04/18 09/23/18 History Mirtazapine 30 mg PO DAILY 09/04/18 09/23/18 History Sertraline HCl 50 mg PO DAILY 09/04/18 09/23/18 History Simvastatin 20 mg PO DAILY 09/04/18 09/23/18 History traZODone HCL [Trazodone HCl] 100 mg PO HS PRN 09/04/18 09/23/18 History Active Medications Generic Name Dose Route Start Last Admin Trade Name Freq PRN Reason Stop Dose Admin Acetaminophen 650 mg 09/23/18 20:46 10/04/18 16:57 Tylenol - PO 650 mg Q4H PRN Administration FEVER Al Hydroxide/Mg Hydroxide 30 ml 09/23/18 20:46 09/27/18 10:44 Mylanta Oral Suspension - PO 30 ml Q6H PRN Administration DYSPEPSIA Albuterol Sulfate 2 puff 09/23/18 20:47 10/04/18 15:13 Ventolin Hfa Inhaler - IH 2 puff Q6H PRN Administration ASTHMA Albuterol/Ipratropium 1 amp 10/02/18 07:32 10/05/18 06:30 Duoneb - NEB 1 amp Q4H PRN Administration SHORTNESS OF BREATH Atorvastatin Calcium 10 mg 09/24/18 22:00 10/04/18 21:40 Lipitor - PO 10 mg HS BETH Administration Budesonide/Formoterol Fumarate 2 puff 09/24/18 10:00 10/04/18 21:40 Symbicort 160/4.5mcg - IH 2 puff BID BETH Administration Clotrimazole 10 mg 09/28/18 15:09 10/05/18 06:53 Mycelex Doron's - PO 10 mg 5XD BETH Administration Eucalyptus/Menthol/Phenol/Sorbitol 1 each 09/23/18 20:46 Cepastat Lozenge - MM Q4H PRN SORE THROAT Guaifenesin 10 ml 09/23/18 20:47 10/04/18 10:26 Robitussin - PO 10 ml Q4H PRN Administration COUGH Hydrochlorothiazide 12.5 mg 09/24/18 10:00 10/04/18 10:23 Hctz - PO 12.5 mg DAILY BETH Administration Hydroxyzine Pamoate 50 mg 10/02/18 19:08 10/03/18 19:06 Vistaril - PO 50 mg Q4H PRN Administration AGITATION Ibuprofen 400 mg 09/23/18 20:46 Motrin - PO Q6H PRN Pain Level 4-6 Labetalol HCl 100 mg 09/24/18 10:00 10/04/18 10:23 Normodyne - PO 100 mg DAILY BETH Administration Loperamide HCl 4 mg 09/23/18 20:46 Imodium - PO Q6H PRN DIARRHEA Magnesium Citrate 300 ml 09/23/18 20:46 Citroma - PO Q48H PRN CONSTIPATION Magnesium Hydroxide 30 ml 09/23/18 20:46 Milk Of Magnesia - PO DAILY PRN CONSTIPATION Melatonin 5 mg 09/23/18 22:00 Melatonin PO HS PRN INSOMNIA Mirtazapine 30 mg 09/24/18 22:00 10/04/18 21:40 Remeron - PO 30 mg HS BETH Administration Nifedipine 90 mg 09/24/18 10:00 10/04/18 10:23 Procardia Xl - PO 90 mg DAILY BETH Administration Pantoprazole Sodium 40 mg 09/24/18 10:00 10/04/18 10:23 Protonix - PO 40 mg DAILY BETH Administration Multivit/Folic Acid/Iron 1 tab 09/24/18 10:00 10/04/18 10:24 Vitamins (Sjr) - PO 1 tab DAILY BETH Administration Sertraline HCl 50 mg 09/24/18 11:25 10/04/18 10:24 Zoloft - PO 50 mg DAILY BETH Administration Thiamine HCl 100 mg 09/23/18 22:00 10/04/18 21:40 Vitamin B1 - PO 100 mg HS BETH Administration Trazodone HCl 100 mg 09/24/18 10:21 10/04/18 21:43 Desyrel - PO 100 mg HS PRN Administration INSOMNIA CARDIAC:S1 S2, TACHYCARDIA, (-)MURMUR LUNGS:CTA, SLIGHTLY DIMINISHED BREATH SOUND ON RIGHT LOWER BASE; NO WHEEZING OR RHONCHI NOTED PLAN:TRANSFER PT VIA AMBULANCE TO [facility] FOR FURTHER EVALUATION AND RESPIRATORY STABILIZATION. SPOKE TO AN ATTENDING DR. COSME AT THE ED. ADDENDUM:PT AND COUNSELING AIRLINE SECURITY REPRESENTATIVE RENETTA REPORT SHE HAS BEEN REFERRED TO [facility] IN [place] ON Monday10/08/18 FOR AFTERCARE. PT STATES SHE HAS A PRIMARY CARE PROVIDER DR. LELE PLAZA AT SAME LOCATION- [facility].
[2018-10-05] MEDS ORDERED: TIOTROPIUM BROMIDE 2.5 MCG (SPIRIVA) RESPIMAT INHALER IH SCH (10:00)
[2018-10-05] MEDS: HYDROCHLOROTHIAZIDE 12.5 MG CAPSULE (FP) PO SCH (11:24)
[2018-10-05] MEDS: PRENATAL VITAMINS W/ FOLIC ACID TABLET (FP) PO SCH (11:24)
[2018-10-05] MEDS: LABETALOL HCL 100 MG TABLET (FP) PO SCH (11:24)
[2018-10-05] MEDS: NIFEdipine E.R. 90 MG TABLET (FP) PO SCH (11:25)
[2018-10-05] MEDS: BUDESONIDE/FORMETEROL FUMARATE 160/4.5 mcg INHALER IH SCH (11:25)
[2018-10-05] MEDS: PANTOPRAZOLE 40 MG TABLET (FP) PO SCH (11:25)
[2018-10-05] MEDS: SERTRALINE HCL 50 MG TABLET (FP) PO SCH (11:25)
== END 2018-10-05 22:35 | disposition short-term general hospital (02) | DRG 772 ==
LOC: YASAS 18:39 → Y3E 18:40
PROVIDERS: ADMIT Psychiatry & Neurology Psychiatry; ATTEND Psychiatry & Neurology Psychiatry
PROC: HZ42ZZZ Group Counseling for Substance Abuse Treatment, Cognitive-Behavioral (ICD-10-PCS; principal; 2018-09-23)
DX: F10.20 Alcohol dependence, uncomplicated (principal); F14.20 Cocaine dependence, uncomplicated; F17.210 Nicotine dependence, cigarettes, uncomplicated; F19.24 Other psychoactive substance dependence with psychoactive substance-induced mood disorder; F41.9 Anxiety disorder, unspecified; J44.1 Chronic obstructive pulmonary disease with (acute) exacerbation; J45.901 Unspecified asthma with (acute) exacerbation; J20.9 Acute bronchitis, unspecified; I10 Essential (primary) hypertension; E78.00 Pure hypercholesterolemia, unspecified
CPT/HCPCS: 94640

== ENCOUNTER 2018-10-05 10:10 | Inpatient (IN) | payer OTHER ==
[2018-10-05 10:24] VITALS: BMI 30.7
--- NOTE | 2018-10-05 10:39 | PDOC ---
History of Present Illness - General Chief Complaint: Respiratory Stated Complaint: Shortness of Breath Time Seen by Provider: 10/05/18 10:39 History Source: Patient, Old Records Exam Limitations: No Limitations - History of Present Illness Initial Comments: HPI: 53 y/o female BIBEMS to [facility] ER from [facility] for shortness of breath and hypoxia per [facility] report. On arrival, the pt states she is here because they found my oxygen was low last night. Denies difficulty breathing, tachypnea , poor exercise tolerance, orthopnea, paroxysmal nocturnal dyspnea, or lower extremity swelling. States she is able to walk from room to bathroom without difficulty. Pt has a h/o of cigarette and crack cocaine smoking. Last used approx. 35 days ago. H/o Asthma and COPD managed with duonebs and spiriva. Last used DuoNeb at approx. 2 am. PCP: None Social Hx: - EtoH: Occasionally, none in past 48 hours - Tobacco: Daily smoker, stopped on 09/02/2018 - Street Drugs: H/o Crack Cocaine Abuse, stopped 35 days ago Medical Hx: - HTN - Asthma vs COPD, managed with albuterol and symbicort - Anxiety - Depression Past History - Past Medical History Allergies/Adverse Reactions: Allergies Allergy/AdvReac Type Severity Reaction Status Date / Time No Known Allergies Allergy Verified 10/05/18 10:20 Home Medications: Ambulatory Orders Acetaminophen [Tylenol] 650 mg PO ASDIR 10/05/18 Albuterol 0.083% Nebulizer Jyoti [Ventolin 0.083%] 1 neb NEB QID 10/05/18 Albuterol 2.5/Ipratropium 0.5 [Duoneb -] 1 neb NEB Q4H 10/05/18 Atorvastatin Ca [Lipitor] 10 mg PO HS 10/05/18 Budesonide/Formeterol Fumarate [SYMBICORT 160/4.5mcg -] 1 inh PO BID 10/05/18 Clotrimazole [Mycelex Doron's -] 10 mg PO TID 10/05/18 Dextromethorphan/Benzocaine [Cepacol Sorethroat-Cough Seymour] 1 each PO ASDIR 10/05 Guaifenesin [Robitussin] 100 mg PO DAILY 10/05/18 Hydrochlorothiazide 12.5 mg PO DAILY 10/05/18 Ibuprofen [Motrin -] 400 mg PO QID 10/05/18 Labetalol HCl [Normodyne -] 100 mg PO BID 10/05/18 Loperamide HCl [Imodium -] 4 mg PO QID 10/05/18 Mag Hydrox/Al Hydrox/Simeth [Mylanta Oral Suspension -] 1 dose PO ASDIR Magnesium Citrate [Citroma -] 195 ml PO ONCE 10/05/18 Magnesium Hydroxide [Milk of Magnesia] 400 mg PO DAILY 10/05/18 Melatonin 5 mg PO DAILY 10/05/18 Mirtazapine [Remeron -] 30 mg PO DAILY 10/05/18 Nifedipine [Procardia Xl] 90 mg PO DAILY 10/05/18 Pantoprazole Sodium [Protonix] 40 mg PO DAILY 10/05/18 95/Iron Fum/Folic/Dha [ + Dha Combo Pack] 1 each PO DAILY 10/05 Sertraline HCl [Zoloft -] 50 mg PO DAILY 10/05/18 Thiamine HCl [B-1] 100 mg PO HS 10/05/18 hydrOXYzine PAMOATE [Vistaril -] 50 mg PO TID 10/05/18 traZODone HCL [Trazodone HCl] 100 mg PO ASDIR 10/05/18 Anemia: No Asthma: Yes (ALBUTEROL) Cancer: No Cardiac Disorders: No CVA: No COPD: Yes (SYMBICORT) CHF: No Dementia: No Diabetes: No GI Disorders: No Disorders: No HTN: Yes (NIFEDIPINE) Hypercholesterolemia: Yes Kidney Stones: No Liver Disease: No Seizures: No Thyroid Disease: No - Surgical History Abdominal Surgery: Yes (APPENDICITIS AT AGE 17) Appendectomy: Yes Cardiac Surgery: No Cholecystectomy: No Lung Surgery: No Neurologic Surgery: No Orthopedic Surgery: No - Suicide/Smoking/Psychosocial Hx Smoking History: Former smoker Have you smoked in the past 12 months: Yes Number of Cigarettes Smoked Daily: 5 If you are a former smoker, when did you quit?: 10/05/18 "35 days ago" Information on smoking cessation initiated: No 'Breaking Loose' booklet given: 09/04/18 Hx Alcohol Use: Yes Drug/Substance Use Hx: Yes (cocaine) Substance Use Type: Alcohol, Cocaine Hx Substance Use Treatment: Yes (completed inpatient rehab in 1993) Review of Systems - Review of Systems Able to Perform ROS?: Yes Comments:: In addition to that documented in the HPI above, the additional ROS was obtained : Constitutional: Denies fevers or chills Eyes: Denies vision changes ENMT: Denies sore throat CV: Denies chest pain Resp: Per HPI GI: Denies vomiting or diarrhea : Denies painful urination MSK: Denies recent trauma Skin: Denies new rashes Neuro: Denies new numbness or tingling or weakness Endocrine: Denies polyuria Heme: Denies bleeding or bruising *Physical Exam - Vital Signs Last Vital Signs Temp Pulse Resp BP Pulse Ox 98.7 F 109 H 26 H 110/63 94 L 10/05/18 10:21 10/05/18 10:21 10/05/18 10:21 10/05/18 10:21 10/05/18 10:21 - Physical Exam Comments: Constitutional: Well-developed, well-nourished female in no acute distress or obvious discomfort. Found semi-fowlers on hospital bed. Alert and oriented x4. Answered all questions appropriately and completely. Speech was non-labored, non -pressured. Head: Normocephalic. No obvious external signs of trauma. Eyes: Sclerae white. EARS: Hearing grossly intact. NOSE: No nasal discharge. THROAT: Oral cavity and pharynx normal. No inflammation, swelling, exudate, or lesions. Neck: Supple, trachea is midline. Cardiovascular: Tachycardic rate and regular rhythm. No murmur, rubs, clicks, or gallops. Peripheral pulses: Radial pulses full. Respiratory: Breathing unlabored. Equal chest rise and fall. Clear to auscultation bilaterally. No stridor, no wheezing, no rhonchi. Infrequent dry cough during exam. Neuro: Alert and oriented. Moving all four extremities spontaneously. Skin: Warm, dry, and intact. Psych: Affect: appropriate. Mood: normal. Moderate Sedation - Procedure Monitoring Vital Signs: Procedure Monitoring Vital Signs Temperature 98.7 F 10/05/18 10:21 Pulse Rate 109 H 10/05/18 10:21 Respiratory Rate 26 H 10/05/18 10:21 Blood Pressure 110/63 10/05/18 10:21 O2 Sat by Pulse Oximetry (%) 94 L 10/05/18 10:21 ED Treatment Course - LABORATORY CBC & Chemistry Diagram: 10/05/18 12:15 10/05/18 12:15
--- NOTE | 2018-10-05 10:59 | PDOC ---
Attending Attestation - Resident Resident Name: Zia Buckley - ED Attending Attestation I have performed the following: I have examined & evaluated the patient, The case was reviewed & discussed with the resident, I agree w/resident's findings & plan, Exceptions are as noted - HPI HPI: 10/05/18 10:58 53yo F hx asthma, copd (previous heavy smoker), HTN, anxiety, depression, PSA ( crack/cocaine) clean for 35 days ago presents from [facility] rehab with low oxygen reading and productive cough. Pt denies any shortness of breath at this time and denies any recent SOB at rest or with exertion recently. Pt last received neb at 2am as her oxygen level was low. Reports a chronic cough, sometimes with clear sputum production. Pt reports her oxygen level is usually 94-95%. Denies fevers, chills, CP, SOB, abd pain, N/V/D, LE edema, calf pain, hormone use. Per CLERICAL PROOFREADER Trice at [facility], pt was in respiratory distress. Upon review of her note, pt had low O2 sat of 89% that corrected with nasal cannula. - Physicial Exam PE: 10/05/18 11:12 GENERAL: Awake, alert, and fully oriented, in no acute distress EYES: PERRLA, EOMI, sclera anicteric, conjunctiva clear ENT: Nares patent, oropharynx clear without exudates. Moist mucosa NECK: Normal ROM, supple, no lymphadenopathy, JVD, or masses LUNGS: Breath sounds equal, clear to auscultation bilaterally. No wheezes, and no crackles HEART: Regular rate and rhythm, normal S1 and S2, no murmurs, rubs or gallops ABDOMEN: Soft, nontender, normoactive bowel sounds. No guarding, no rebound. No masses EXTREMITIES: Normal range of motion, no edema. No cords, erythema, or tenderness NEUROLOGICAL: Normal speech, cranial nerves intact, negative pronator drift, equal strength and sensation b/l SKIN: Warm, Dry, normal turgor, no rashes or lesions noted. - Medical Decision Making 10/05/18 11:14 53yo F hx asthma and COPD presents to the ED with concern for hypoxia, cough. Pt asymptomatic. Vitals initially with tachycardia, tachypnea, O2 sat 94%. On vitals recheck, HR 92, RR 16 but hypoxic on RA to 88% (pt reports baseline is usually 94-95%). Lungs with some diminished BS at R lung base. DDX IBNLT PNA vs PE vs asthma/COPD. No wheezing at this time. Plan -labs inlcuding dimer -CXR -reassess 10/05/18 15:58 PT had episode of resp distress in ED, improved with neb and steroid still hypoxic to 89%, still mildly SOB At this pt decision made to obs pt for asthma exacerbation Case discussed with Dr. Collins, pt accepted for admission Case discussed in detail with admitting physician including history, physical exam and ancillary studies. Admitting physician has assumed care for the patient, will follow all pending diagnostics and will complete the evaluation and treatment. *DC/Admit/Observation/Transfer Diagnosis at time of Disposition: COPD (chronic obstructive pulmonary disease), Hypoxia, SOB (shortness of breath ) - Discharge Dispostion Condition at time of disposition: Stable Decision to Admit order: Yes - Referrals - Patient Instructions - Post Discharge Activity - Attestations Physician Attestion: 10/05/18 16:13 I, Dr. Mikie Hardy MD, attest that this document has been prepared under my direction and personally reviewed by me in its entirety. I further attest, that it accurately reflects all work, treatment, procedures and medical decision -making performed by me.
[2018-10-05 12:32] LABS: BASO % 0.7 % (0-2.0); EOS % 1.4 % (0-4.5); HEMATOCRIT 34.3 % (32.4-45.2); HEMOGLOBIN 11.9 GM/dL (10.7-15.3); LYMPH % 24.9 % (8-40); MCHC 34.7 g/dl (32.0-36.0); MEAN CELL VOLUME 92.1 fl (80-96); MEAN PLT VOLUME 8.3 fl (7.5-11.1); MONO % 14.9 % (3.8-10.2); NEUT % 58.1 % (42.8-82.8); PLATELET COUNT 215 K/MM3 (134-434); RBC 3.72 M/mm3 (3.60-5.2); RDW 15.7 % (11.6-15.6); WHITE BLOOD COUNT 7.5 K/mm3 (4.0-10.0)
[2018-10-05 13:10] LABS: ALBUMIN 3.2 g/dl (3.4-5.0); ALK PHOS 198 U/L (45-117); ANION GAP 8 MMOL/L (8-16); BILIRUBIN,TOTAL 0.4 mg/dL (0.2-1); BLOOD UREA NITROGEN 11 mg/dL (7-18); CALCIUM 8.7 mg/dL (8.5-10.1); CHLORIDE 103 mmol/L (98-107); CO2 27 mmol/L (21-32); CREATININE 0.7 mg/dL (0.55-1.3); GLUCOSE,RANDOM 76 mg/dL (74-106); N-TERMINAL BNP 30.8 pg/ml (5-125); POTASSIUM 4.2 mmol/L (3.5-5.1); SGOT/AST 20 U/L (15-37); SGPT/ALT 75 U/L (13-61); SODIUM 138 mmol/L (136-145); TOT PROT 7.2 g/dl (6.4-8.2)
[2018-10-05] MEDS ORDERED: ALBUTEROL SO4 2.5/IPRATROPIUM 0.5 INH SOL 3 ML VIAL.NEB. NEB ONE ×2 (14:17→14:31)
[2018-10-05] MEDS ORDERED: predniSONE 20 MG TABLET (UD) PO ONE (14:18)
[2018-10-05] MEDS ORDERED: predniSONE 20 MG TABLET (UD) ONE (14:31)
--- NOTE | 2018-10-05 16:27 | HP ---
CHIEF COMPLAINT: Low oxygen saturation, cough PCP: HISTORY OF PRESENT ILLNESS: Patient is a 53 year old female from [facility] with history of polysubstance abuse (alcohol, crack cocaine), anxiety, depression, asthma, COPD, hypertension , hyperlipidemia, presents after being informed that her oxygen saturation was low. She denies shortness of breath, however endorses cough that is occasionally productive with white colored sputum. Denies fevers, or chills today. Patient was recently discharged from [facility] on 09/23 for COPD exacerbation and was discharged with Prednisone, and Azithromycin with which she admits compliance. Patient endorses anxiety over past several days as her rehab from [facility] will be completed in the next two days, and she has concerns about returning to [facility] due to fear of drug relapse. ER course was notable for: (1) Duonebs, Prednisone 60mg PO (2) Chest Xray (3) Recent Travel: Denies PAST MEDICAL HISTORY: polysubstance abuse (alcohol, crack cocaine), anxiety, depression, asthma, COPD, hypertension, hyperlipidemia PAST SURGICAL HISTORY: appendectomy Social History: Smoking: endorses smoking since a teenager approx 5 cigarettes/ day. Quit smoking 08/2018 Alcohol: endorses drinking 1 pint of liquor on occasion. Quit drinking 08/2018 Drugs: endorses use of crack cocaine. Quit 08/2018 Family History: Mother: hypertension, CVA Father: at 62 years old from myocardial infarction Daughter: 23 years old, healthy Allergies: Patient denies food or medication allergies. No Known Allergies Allergy (Verified 10/05/18 10:20) HOME MEDICATIONS: Home Medications Medication Instructions Recorded Acetaminophen [Tylenol] 650 mg PO ASDIR 10/05/18 Albuterol 0.083% Nebulizer Jyoti 1 neb NEB QID 10/05/18 [Ventolin 0.083%] Albuterol 2.5/Ipratropium 0.5 1 neb NEB Q4H 10/05/18 [Duoneb -] Atorvastatin Ca [Lipitor] 10 mg PO HS 10/05/18 Budesonide/Formeterol Fumarate 1 inh PO BID 10/05/18 [SYMBICORT 160/4.5mcg -] Clotrimazole [Mycelex Doron's -] 10 mg PO TID 10/05/18 Dextromethorphan/Benzocaine 1 each PO ASDIR 10/05/18 [Cepacol Sorethroat-Cough Seymour] Guaifenesin [Robitussin] 100 mg PO DAILY 10/05/18 Hydrochlorothiazide 12.5 mg PO DAILY 10/05/18 Ibuprofen [Motrin -] 400 mg PO QID 10/05/18 Labetalol HCl [Normodyne -] 100 mg PO BID 10/05/18 Loperamide HCl [Imodium -] 4 mg PO QID 10/05/18 Mag Hydrox/Al Hydrox/Simeth 1 dose PO ASDIR 10/05/18 [Mylanta Oral Suspension -] Magnesium Citrate [Citroma -] 195 ml PO ONCE 10/05/18 Magnesium Hydroxide [Milk of 400 mg PO DAILY 10/05/18 Magnesia] Melatonin 5 mg PO DAILY 10/05/18 Mirtazapine [Remeron -] 30 mg PO DAILY 10/05/18 Nifedipine [Procardia Xl] 90 mg PO DAILY 10/05/18 Pantoprazole Sodium [Protonix] 40 mg PO DAILY 10/05/18 95/Iron Fum/Folic/Dha 1 each PO DAILY 10/05/18 [ + Dha Combo Pack] Sertraline HCl [Zoloft -] 50 mg PO DAILY 10/05/18 Thiamine HCl [B-1] 100 mg PO HS 10/05/18 hydrOXYzine PAMOATE [Vistaril -] 50 mg PO TID 10/05/18 traZODone HCL [Trazodone HCl] 100 mg PO ASDIR 10/05/18 REVIEW OF SYSTEMS CONSTITUTIONAL: Absent: fever, chills, diaphoresis, generalized weakness, malaise, loss of appetite, weight change HEENT: Absent: rhinorrhea, nasal congestion, throat pain, throat swelling, difficulty swallowing, mouth swelling, ear pain, eye pain, visual changes CARDIOVASCULAR: Absent: chest pain, syncope, palpitations, irregular heart rate, lightheadedness , peripheral edema RESPIRATORY: Admits: cough. Absent: shortness of breath, dyspnea with exertion, orthopnea, wheezing, stridor, hemoptysis GASTROINTESTINAL: Absent: abdominal pain, abdominal distension, nausea, vomiting, diarrhea, constipation, melena, hematochezia GENITOURINARY: Absent: dysuria, frequency, urgency, hesitancy, hematuria, flank pain, genital pain MUSCULOSKELETAL: Absent: myalgia, arthralgia, joint swelling, back pain, neck pain SKIN: Absent: rash, itching, pallor NEUROLOGIC: Absent: headache, focal weakness or paresthesias, dizziness, unsteady gait, seizure, mental status changes, bladder or bowel incontinence PSYCHIATRIC: Admits: anxiety, depression. PHYSICAL EXAMINATION Vital Signs - 24 hr 10/05/18 10/05/18 10/05/18 10:21 10:30 10:53 Temperature 98.7 F Pulse Rate 109 H 101 H Respiratory 26 H 18 Rate Blood Pressure 110/63 O2 Sat by Pulse 94 L 98 95 Oximetry (%) GENERAL: Awake, alert, and fully oriented. Anxious appearing, tearful affect. HEAD: Normal with no signs of trauma. EYES: Pupils equal, round and reactive to light, extraocular movements intact, sclera anicteric. EARS, NOSE, THROAT: Oropharynx clear without exudates. Moist mucous membranes. NECK: Normal range of motion, supple without lymphadenopathy. LUNGS: Good inspiratory effort. Breath sounds equal, with faint expiratory wheezing auscultated B/L lower lung lobes. No accessory muscle use. HEART: Tachycardic. Regular rate and rhythm, normal S1 and S2 without murmur, rub or gallop. ABDOMEN: Obese. Soft, nontender, not distended. Hypoactive bowel sounds X4 quadrants. No guarding, no rebound tendernes. No hepatomegaly palpated or percussed. Negative Solorzano's sign. MUSCULOSKELETAL: Normal range of motion at all joints. No bony deformities or tenderness. Strength 5/5 B/L upper and lower extremities. UPPER EXTREMITIES: 2+ radial pulses B/L, warm, well-perfused. LOWER EXTREMITIES: 2+ dorsalis pedis pulses B/L, warm, well-perfused. No calf tenderness. No peripheral edema B/L. NEUROLOGICAL: Cranial nerves II-XII intact. Normal speech. PSYCHIATRIC: Cooperative. Anxious. SKIN: Warm, dry Laboratory Results - last 24 hr 10/05/18 10/05/18 10/05/18 12:15 12:15 12:15 WBC 7.5 RBC 3.72 Hgb 11.9 Hct 34.3 MCV 92.1 MCH 32.0 MCHC 34.7 RDW 15.7 H Plt Count 215 D MPV 8.3 Absolute Neuts (auto) 4.4 Neutrophils % 58.1 Lymphocytes % 24.9 Monocytes % 14.9 H D Eosinophils % 1.4 D Basophils % 0.7 Nucleated RBC % 0 D-Dimer 395 Sodium 138 Potassium 4.2 Chloride 103 Carbon Dioxide 27 Anion Gap 8 BUN 11 Creatinine 0.7 Creat Clearance w eGFR > 60 Random Glucose 76 Calcium 8.7 Total Bilirubin 0.4 AST 20 ALT 75 H Alkaline Phosphatase 198 H Troponin I B-Natriuretic Peptide 30.8 Total Protein 7.2 Albumin 3.2 L 10/05/18 12:15 WBC RBC Hgb Hct MCV MCH MCHC RDW Plt Count MPV Absolute Neuts (auto) Neutrophils % Lymphocytes % Monocytes % Eosinophils % Basophils % Nucleated RBC % D-Dimer Sodium Potassium Chloride Carbon Dioxide Anion Gap BUN Creatinine Creat Clearance w eGFR Random Glucose Calcium Total Bilirubin AST ALT Alkaline Phosphatase Troponin I < 0.02 B-Natriuretic Peptide Total Protein Albumin ASSESSMENT/PLAN: Patient is a 53 year old female with history of polysubstance abuse (alcohol, crack cocaine), anxiety, depression, asthma, COPD, hypertension, hyperlipidemia , presents from [facility] after being informed that her oxygen saturation was low. Mild asthma exacerbation -Patient with bilateral wheezes on exam, with prior documented poor oxygen saturation. She has history of asthma, COPD. Currently she is not short of breath. -Patient received 60mg Prednisone in ED -Prednisone 40mg PO daily for 5 days -Spiriva 2 puffs daily -Symbicort 160/ 4.5mcg 2 puffs IH BID -Albuterol nebulizer Q6H PRN -Maintain oxygen saturation greater than 90% Anxiety -Patient tearful, endorses feelings of anxiety -Remeron 30mg PO HS -Sertaline 50mg PO daily -Trazodone 100mg PO HS History of polysubstane abuse -Patient has been in [facility] for rehab since 09/04/2018 -Counselled regarding importance of abstaining from alcohol, drugs -family worker evaluation Hypertension -Labetalol 100mg PO daily -Hydrochlorothiazide 12.5mg PO daily -Procardia XL 30mg PO daily Hyperlipidemia -Atorvastatin 10mg PO daily Nicotine dependence -Nicotine patch 21mg daily FEN -No IV fluids indicated -Follow CMP -Sodium controlled diet Prophylaxis -Lovenox 40mg subq daily -Protonix 40mg PO daily Disposition -Observation in medical-surgical floor. Visit type - Emergency Visit Emergency Visit: Yes ED Registration Date: 10/05/18 Care time: The patient presented to the Emergency Department on the above date and was hospitalized for further evaluation of their emergent condition. - New Patient This patient is new to me today: Yes Date on this admission: 10/05/18 - Critical Care Critical Care patient: No
[2018-10-05] MEDS ORDERED: traZODone HCL 100 MG TABLET (FP) PO SCH (17:30)
[2018-10-05] MEDS ORDERED: MELATONIN 5 MG TABLETS PO PRN (18:07)
[2018-10-05] MEDS: ENOXAPARIN NA (PORCINE) 40 MG/0.4 ML DISP.SYRIN SQ SCH (18:31)
--- NOTE | 2018-10-05 19:40 | PN ---
Teaching Attending Note Name of Resident: Maynor Quinn ATTENDING PHYSICIAN STATEMENT I saw and evaluated the patient. I reviewed the resident's note and discussed the case with the resident. I agree with the resident's findings and plan as documented. SUBJECTIVE: This is a 53 year old woman with a history of HTN, hyperlipidemia, anxiety, depression, asthma, COPD, substance abuse who was sent to the ED from [facility] for evaluation of hypoxia. She reports a productive cough. She denies fever, chills, SOB. She was admitted on 09/04 to [facility] for detox. She was then admitted on 09/15 to [facility] for COPD exacerbation and was discharged on on Prednisone and Zithromax, at which time she was readmitted to [facility] for rehab. OBJECTIVE: Vital Signs Period Temp Pulse Resp BP Sys/Weiner Pulse Ox Last 24 Hr 98.7 F 86-109 16-26 110-122/63-75 94-100 GENERAL: In no distress HEART: S1S2, tachycardic LUNGS: Few wheezes ABDOMEN: Obese, soft, non-tender, nondistended, normal BS EXTREMITIES: No edema Laboratory Results - last 24 hr 10/05/18 10/05/18 10/05/18 12:15 12:15 12:15 WBC 7.5 RBC 3.72 Hgb 11.9 Hct 34.3 MCV 92.1 MCH 32.0 MCHC 34.7 RDW 15.7 H Plt Count 215 D MPV 8.3 Absolute Neuts (auto) 4.4 Neutrophils % 58.1 Lymphocytes % 24.9 Monocytes % 14.9 H D Eosinophils % 1.4 D Basophils % 0.7 Nucleated RBC % 0 D-Dimer 395 Sodium 138 Potassium 4.2 Chloride 103 Carbon Dioxide 27 Anion Gap 8 BUN 11 Creatinine 0.7 Creat Clearance w eGFR > 60 Random Glucose 76 Calcium 8.7 Total Bilirubin 0.4 AST 20 ALT 75 H Alkaline Phosphatase 198 H Troponin I B-Natriuretic Peptide 30.8 Total Protein 7.2 Albumin 3.2 L 10/05/18 12:15 WBC RBC Hgb Hct MCV MCH MCHC RDW Plt Count MPV Absolute Neuts (auto) Neutrophils % Lymphocytes % Monocytes % Eosinophils % Basophils % Nucleated RBC % D-Dimer Sodium Potassium Chloride Carbon Dioxide Anion Gap BUN Creatinine Creat Clearance w eGFR Random Glucose Calcium Total Bilirubin AST ALT Alkaline Phosphatase Troponin I < 0.02 B-Natriuretic Peptide Total Protein Albumin Home Medications Medication Instructions Recorded Acetaminophen [Tylenol] 650 mg PO ASDIR 10/05/18 Albuterol 0.083% Nebulizer Jyoti 1 neb NEB QID 10/05/18 [Ventolin 0.083%] Albuterol 2.5/Ipratropium 0.5 1 neb NEB Q4H 10/05/18 [Duoneb -] Atorvastatin Ca [Lipitor] 10 mg PO HS 10/05/18 Budesonide/Formeterol Fumarate 1 inh PO BID 10/05/18 [SYMBICORT 160/4.5mcg -] Clotrimazole [Mycelex Doron's -] 10 mg PO TID 10/05/18 Dextromethorphan/Benzocaine 1 each PO ASDIR 10/05/18 [Cepacol Sorethroat-Cough Seymour] Guaifenesin [Robitussin] 100 mg PO DAILY 10/05/18 Hydrochlorothiazide 12.5 mg PO DAILY 10/05/18 Ibuprofen [Motrin -] 400 mg PO QID 10/05/18 Labetalol HCl [Normodyne -] 100 mg PO BID 10/05/18 Loperamide HCl [Imodium -] 4 mg PO QID 10/05/18 Mag Hydrox/Al Hydrox/Simeth 1 dose PO ASDIR 10/05/18 [Mylanta Oral Suspension -] Magnesium Citrate [Citroma -] 195 ml PO ONCE 10/05/18 Magnesium Hydroxide [Milk of 400 mg PO DAILY 10/05/18 Magnesia] Melatonin 5 mg PO DAILY 10/05/18 Mirtazapine [Remeron -] 30 mg PO DAILY 10/05/18 Nifedipine [Procardia Xl] 90 mg PO DAILY 10/05/18 Pantoprazole Sodium [Protonix] 40 mg PO DAILY 10/05/18 95/Iron Fum/Folic/Dha 1 each PO DAILY 10/05/18 [ + Dha Combo Pack] Sertraline HCl [Zoloft -] 50 mg PO DAILY 10/05/18 Thiamine HCl [B-1] 100 mg PO HS 10/05/18 hydrOXYzine PAMOATE [Vistaril -] 50 mg PO TID 10/05/18 traZODone HCL [Trazodone HCl] 100 mg PO ASDIR 10/05/18 ASSESSMENT AND PLAN: This is a 53 year old woman with a history of HTN, hyperlipidemia, anxiety, depression, asthma, COPD, substance abuse who was sent to the ED from [facility] for evaluation of hypoxia. 1. Asthma/COPD exacerbation - Patient in no distress, and no hypoxia - Place in observation - Continue Prednisone, Symbicort, DuoNeb 2. HTN - Continue Procardia XL, Labetalol, HCTZ 3. Hyperlipidemia - Continue Lipitor 4. Depression with anxiety - Continue Zoloft, Remeron, Trazodone 5. Substance abuse - Plan to return to [facility] to complete rehab at discharge 6. Nicotine dependence - Nicotine patch 7. Obesity
[2018-10-05] MEDS: ATORVASTATIN CA 10 MG TABLET (FP) PO SCH (21:58)
[2018-10-05] MEDS: LABETALOL HCL 100 MG TABLET (FP) PO SCH (21:58)
[2018-10-05] MEDS: BUDESONIDE/FORMETEROL FUMARATE 160/4.5 mcg INHALER IH SCH (23:02)
[2018-10-06] MEDS ORDERED: PT OWN MED DRAWER 7, Y5N ONE ×2 (00:48→10:12)
[2018-10-06] MEDS: ALBUTEROL SO4 0.083% IH SOL 2.5 MG/3 ML VIAL.NEB. NEB PRN ×3 (06:10→21:20)
[2018-10-06 07:12] LABS: HEMATOCRIT 33.1 % (32.4-45.2); HEMOGLOBIN 10.8 GM/dL (10.7-15.3); MCH 30.4 pg (25.7-33.7); MCHC 32.6 g/dl (32.0-36.0); MEAN CELL VOLUME 93.1 fl (80-96); MEAN PLT VOLUME 8.3 fl (7.5-11.1); PLATELET COUNT 209 K/MM3 (134-434); RBC 3.56 M/mm3 (3.60-5.2); RDW 15.8 % (11.6-15.6); WHITE BLOOD COUNT 6.2 K/mm3 (4.0-10.0)
[2018-10-06 07:57] LABS: ALK PHOS 175 U/L (45-117); ANION GAP 7 MMOL/L (8-16); BILIRUBIN,TOTAL 0.3 mg/dL (0.2-1); BLOOD UREA NITROGEN 15 mg/dL (7-18); CALCIUM 8.7 mg/dL (8.5-10.1); CHLORIDE 105 mmol/L (98-107); CO2 27 mmol/L (21-32); CREATININE 0.6 mg/dL (0.55-1.3); GLUCOSE,RANDOM 125 mg/dL (74-106); MAGNESIUM 2.7 mg/dL (1.8-2.4); PHOSPHOROUS 4.3 mg/dL (2.5-4.9); POTASSIUM 3.7 mmol/L (3.5-5.1); SGOT/AST 16 U/L (15-37); SGPT/ALT 63 U/L (13-61); SODIUM 139 mmol/L (136-145); TOT PROT 6.8 g/dl (6.4-8.2)
[2018-10-06] MEDS ORDERED: predniSONE 20 MG TABLET (UD) PO SCH (10:00)
[2018-10-06] MEDS ORDERED: traZODone HCL 100 MG TABLET (FP) PO SCH (10:00)
[2018-10-06] MEDS ORDERED: traZODone HCL 50 MG TABLET (FP) ONE (10:07)
[2018-10-06] MEDS: NIFEdipine E.R. 30 MG TABLET (FP) PO SCH (10:34)
[2018-10-06] MEDS: HYDROCHLOROTHIAZIDE 12.5 MG CAPSULE (FP) PO SCH (10:34)
[2018-10-06] MEDS: BUDESONIDE/FORMETEROL FUMARATE 160/4.5 mcg INHALER IH SCH ×2 (10:34→22:00)
[2018-10-06] MEDS: ENOXAPARIN NA (PORCINE) 40 MG/0.4 ML DISP.SYRIN SQ SCH (10:34)
[2018-10-06] MEDS: TIOTROPIUM BROMIDE 2.5 MCG (SPIRIVA) RESPIMAT INHALER IH SCH (10:34)
[2018-10-06] MEDS: NICOTINE 21 MG/24 HOURS TOPICAL PATCH TD SCH (10:34)
[2018-10-06] MEDS: LABETALOL HCL 100 MG TABLET (FP) PO SCH ×2 (10:34→22:00)
[2018-10-06] MEDS: SERTRALINE HCL 50 MG TABLET (FP) PO SCH (10:35)
[2018-10-06] MEDS: MIRTAZAPINE 30 MG TABLET (FP) PO SCH (10:46)
--- NOTE | 2018-10-06 16:22 | PN ---
Progress Note (short form) - Note Progress Note: still wheezing and sob on oxygen and c/o sob at rest and on min exertions vs Vital Signs Period Temp Pulse Resp BP Sys/Weiner Pulse Ox Last 24 Hr 97.3 F-98.5 F 79-100 16-20 99-140/57-89 97-[address] lung anika wheezing sandra on expiratory heart normal heart sounds ext no edema labs Laboratory Results - last 24 hr 10/06/18 10/06/18 06:00 06:00 WBC 6.2 RBC 3.56 L Hgb 10.8 Hct 33.1 MCV 93.1 MCH 30.4 MCHC 32.6 RDW 15.8 H Plt Count 209 MPV 8.3 Sodium 139 Potassium 3.7 Chloride 105 Carbon Dioxide 27 Anion Gap 7 L BUN 15 Creatinine 0.6 Creat Clearance w eGFR > 60 Random Glucose 125 H Calcium 8.7 Phosphorus 4.3 Magnesium 2.7 H Total Bilirubin 0.3 AST 16 ALT 63 H Alkaline Phosphatase 175 H Total Protein 6.8 Albumin 3.0 L Current Medications Albuterol Sulfate (Ventolin 0.083% Nebulizer Soln -) 1 amp NEB Q4H PRN PRN Reason: SHORT OF BREATH/WHEEZING Last Admin: 10/06/18 13:57 Dose: 1 amp Atorvastatin Calcium (Lipitor -) 10 mg PO HS [facility] Last Admin: 10/05/18 21:58 Dose: 10 mg Budesonide/Formoterol Fumarate (Symbicort 160/4.5mcg -) 2 puff IH BID [facility] Last Admin: 10/06/18 10:34 Dose: 2 puff Enoxaparin Sodium (Lovenox -) 40 mg SQ DAILY [facility] Last Admin: 10/06/18 10:34 Dose: 40 mg Hydrochlorothiazide (Hctz -) 12.5 mg PO DAILY [facility] Last Admin: 10/06/18 10:34 Dose: 12.5 mg Labetalol HCl (Normodyne -) 100 mg PO BID [facility] Last Admin: 10/06/18 10:34 Dose: 100 mg Melatonin (Melatonin) 5 mg PO HS PRN PRN Reason: INSOMNIA Mirtazapine (Remeron -) 30 mg PO DAILY [facility] Last Admin: 10/06/18 10:46 Dose: 30 mg Nicotine (Nicoderm Patch -) 21 mg TD DAILY [facility] Last Admin: 10/06/18 10:34 Dose: Not Given Nifedipine (Procardia Xl -) 30 mg PO DAILY [facility] Last Admin: 10/06/18 10:34 Dose: 30 mg Prednisone (Deltasone -) 40 mg PO DAILY [facility] Last Admin: 10/06/18 10:33 Dose: 40 mg Sertraline HCl (Zoloft -) 50 mg PO DAILY [facility] Last Admin: 10/06/18 10:35 Dose: 50 mg Tiotropium Waves (Spiriva Respimat) 2 puff IH DAILY [facility] Last Admin: 10/06/18 10:34 Dose: 2 puff Trazodone HCl (Desyrel -) 100 mg PO [facility] ASSESSMENT AND PLAN: This is a 53 year old woman with a history of HTN, hyperlipidemia, anxiety, depression, asthma, COPD, substance abuse who was sent to the ED from [facility] for evaluation of hypoxia. 1. Asthma/COPD exacerbation - Patient in no distress, and no hypoxia but improving slowly - Continue Prednisone, Symbicort, DuoNeb if she is not better by morning will switch to iv solumedrol 2. HTN - stable Continue Procardia XL, Labetalol, HCTZ 3. Hyperlipidemia - Continue Lipitor 4. Depression with anxiety - Continue Zoloft, Remeron, Trazodone
[2018-10-06] MEDS: ATORVASTATIN CA 10 MG TABLET (FP) PO SCH (22:00)
[2018-10-07] MEDS: ALBUTEROL SO4 0.083% IH SOL 2.5 MG/3 ML VIAL.NEB. NEB PRN ×4 (02:03→15:27)
[2018-10-07] MEDS: methylPREDNISolone NA SUCC 40 MG/1 ML VIAL IVPUSH SCH ×3 (08:32→22:00)
[2018-10-07] MEDS: guaiFENesin/CODEINE 5 ML UNIT-DOSE CUPS PO PRN ×2 (08:32→22:03)
[2018-10-07] MEDS: SERTRALINE HCL 50 MG TABLET (FP) PO SCH (09:34)
[2018-10-07] MEDS: ENOXAPARIN NA (PORCINE) 40 MG/0.4 ML DISP.SYRIN SQ SCH (09:34)
[2018-10-07] MEDS: HYDROCHLOROTHIAZIDE 12.5 MG CAPSULE (FP) PO SCH (09:34)
[2018-10-07] MEDS: LABETALOL HCL 100 MG TABLET (FP) PO SCH ×2 (09:34→22:02)
[2018-10-07] MEDS: NIFEdipine E.R. 30 MG TABLET (FP) PO SCH (09:34)
[2018-10-07] MEDS: NICOTINE 21 MG/24 HOURS TOPICAL PATCH TD SCH (09:35)
[2018-10-07] MEDS: TIOTROPIUM BROMIDE 2.5 MCG (SPIRIVA) RESPIMAT INHALER IH SCH (09:35)
[2018-10-07] MEDS: BUDESONIDE/FORMETEROL FUMARATE 160/4.5 mcg INHALER IH SCH ×2 (09:35→22:04)
[2018-10-07] MEDS: MIRTAZAPINE 30 MG TABLET (FP) PO SCH (12:02)
--- NOTE | 2018-10-07 12:26 | PN ---
Physical Exam: SUBJECTIVE: Patient seen and examined at bedside this morning. She endorses shortness of breath with 2L nasal canula, and productive cough that is associated with sharp cramping abdominal pain. She denies subjective fevers of chills overnight. She denies chest pain, palpitations, nausea, vomiting, diarrhea. OBJECTIVE: Vital Signs Period Temp Pulse Resp BP Sys/Weiner Pulse Ox Last 24 Hr 97.5 F-99.9 F 100-107 20-20 106-133/60-74 95-97 GGENERAL: Awake, alert, and fully oriented. Anxious appearing. HEAD: Normal with no signs of trauma. EYES: Pupils equal, round and reactive to light, extraocular movements intact, sclera anicteric. EARS, NOSE, THROAT: Oropharynx clear without exudates. Moist mucous membranes. NECK: Normal range of motion, supple without lymphadenopathy. LUNGS: Good inspiratory effort. Breath sounds equal, with faint expiratory wheezing auscultated B/L lower lung lobes. No accessory muscle use. HEART: Regular rate and rhythm, normal S1 and S2 without murmur, rub or gallop. ABDOMEN: Obese. Soft, diffusely tender to deep palpaiton. Not distended. Normoactive bowel sounds X4 quadrants. No guarding, no rebound tendernes. No hepatomegaly palpated or percussed. MUSCULOSKELETAL: Normal range of motion at all joints. No bony deformities or tenderness. Strength 5/5 B/L upper and lower extremities. UPPER EXTREMITIES: 2+ radial pulses B/L, warm, well-perfused. LOWER EXTREMITIES: 2+ dorsalis pedis pulses B/L, warm, well-perfused. No calf tenderness. No peripheral edema B/L. NEUROLOGICAL: Cranial nerves II-XII intact. Normal speech. PSYCHIATRIC: Cooperative. Anxious. SKIN: Warm, dry Active Medications Generic Name Dose Route Start Last Admin Trade Name Freq PRN Reason Stop Dose Admin Albuterol Sulfate 1 amp 10/05/18 19:07 10/07/18 11:59 Ventolin 0.083% Nebulizer Soln - NEB 1 amp Q4H PRN Administration SHORT OF BREATH/WHEEZING Atorvastatin Calcium 10 mg 10/05/18 22:00 10/06/18 22:00 Lipitor - PO 10 mg HS B[facility] Administration Budesonide/Formoterol Fumarate 2 puff 10/05/18 22:00 10/07/18 09:35 Symbicort 160/4.5mcg - IH 2 puff BID BETH Administration Enoxaparin Sodium 40 mg 10/05/18 17:30 10/07/18 09:34 Lovenox - SQ 40 mg DAILY [facility] Administration Guaifenesin/Codeine Phosphate 5 ml 10/07/18 07:59 10/07/18 08:32 Robitussin Ac - PO 5 ml Q6H PRN Administration COUGH Hydrochlorothiazide 12.5 mg 10/06/18 10:00 10/07/18 09:34 Hctz - PO 12.5 mg DAILY BETH Administration Labetalol HCl 100 mg 10/05/18 22:00 10/07/18 09:34 Normodyne - PO 100 mg BID BETH Administration Melatonin 5 mg 10/05/18 18:07 Melatonin PO HS PRN INSOMNIA Methylprednisolone Sodium Succinate 60 mg 10/07/18 08:00 10/07/18 08:32 Solu-Medrol - IVPUSH 60 mg Q6H-IV [facility] Administration Mirtazapine 30 mg 10/06/18 10:00 10/07/18 12:02 Remeron - PO 30 mg DAILY [facility] Administration Nicotine 21 mg 10/06/18 10:00 10/07/18 09:35 Nicoderm Patch - TD Not Given DAILY [facility] Nifedipine 30 mg 10/06/18 10:00 10/07/18 09:34 Procardia Xl - PO 30 mg DAILY [facility] Administration Sertraline HCl 50 mg 10/06/18 10:00 10/07/18 09:34 Zoloft - PO 50 mg DAILY [facility] Administration Tiotropium [place] 2 puff 10/06/18 10:00 10/07/18 09:35 Spiriva Respimat IH 2 puff DAILY [facility] Administration Trazodone HCl 100 mg 10/07/18 22:00 Desyrel - PO HS [facility] ASSESSMENT/PLAN: Patient is a 53 year old female with history of polysubstance abuse (alcohol, crack cocaine), anxiety, depression, asthma, COPD, hypertension, hyperlipidemia , presents from [facility] after being informed that her oxygen saturation was low. Mild asthma exacerbation -Patient with bilateral wheezes on exam, with prior documented poor oxygen saturation. She has history of asthma, COPD. Currently she is not short of breath. -Patient received 60mg Prednisone in ED -Prednisone switched to SoluMedrol 60mg IV Q6H -Adding Ranitidine 150mg PO BID as patient is receiving steroids -Spiriva 2 puffs daily -Symbicort 160/ 4.5mcg 2 puffs IH BID -Albuterol nebulizer Q6H PRN -Robitussin AC 5mL Q6H PRN for cough -Maintain oxygen saturation greater than 90% Anxiety -Patient tearful, endorses feelings of anxiety -Remeron 30mg PO HS -Sertaline 50mg PO daily -Trazodone 100mg PO HS History of polysubstane abuse -Patient has been in [facility] for rehab since 09/04/2018 -Counselled regarding importance of abstaining from alcohol, drugs -child welfare social worker evaluation Hypertension -Labetalol 100mg PO daily -Hydrochlorothiazide 12.5mg PO daily -Procardia XL 30mg PO daily Hyperlipidemia -Atorvastatin 10mg PO daily Nicotine dependence -Nicotine patch 21mg daily FEN -No IV fluids indicated -Follow CMP -Sodium controlled diet Prophylaxis -Lovenox 40mg subq daily -Ranitidine 150mg PO BID Disposition -Observation in medical-surgical floor. Visit type - Emergency Visit Emergency Visit: Yes ED Registration Date: 10/05/18 Care time: The patient presented to the Emergency Department on the above date and was hospitalized for further evaluation of their emergent condition. - New Patient This patient is new to me today: No - Critical Care Critical Care patient: No - Discharge Referral Referred to [facility] Med P.C.: No
--- NOTE | 2018-10-07 12:59 | PN ---
Teaching Attending Note Name of Resident: Maynor Quinn ATTENDING PHYSICIAN STATEMENT I saw and evaluated the patient. I reviewed the resident's note and discussed the case with the resident. I agree with the resident's findings and plan as documented. SUBJECTIVE:still have cough and wheezing , no fever or chills OBJECTIVE: Vital Signs Period Temp Pulse Resp BP Sys/Weiner Pulse Ox Last 24 Hr 97.5 F-99.9 F 100-107 20-20 106-133/60-74 95-99 Heent [place] oxygen in place lung anika ronchi and wheezing heart no new change neuro alert and awake Current Medications Albuterol Sulfate (Ventolin 0.083% Nebulizer Soln -) 1 amp NEB Q4H PRN PRN Reason: SHORT OF BREATH/WHEEZING Last Admin: 10/07/18 11:59 Dose: 1 amp Atorvastatin Calcium (Lipitor -) 10 mg PO HS [facility] Last Admin: 10/06/18 22:00 Dose: 10 mg Budesonide/Formoterol Fumarate (Symbicort 160/4.5mcg -) 2 puff IH BID [facility] Last Admin: 10/07/18 09:35 Dose: 2 puff Enoxaparin Sodium (Lovenox -) 40 mg SQ DAILY [facility] Last Admin: 10/07/18 09:34 Dose: 40 mg Guaifenesin/Codeine Phosphate (Robitussin Ac -) 5 ml PO Q6H PRN PRN Reason: COUGH Last Admin: 10/07/18 08:32 Dose: 5 ml Hydrochlorothiazide (Hctz -) 12.5 mg PO DAILY [facility] Last Admin: 10/07/18 09:34 Dose: 12.5 mg Labetalol HCl (Normodyne -) 100 mg PO BID [facility] Last Admin: 10/07/18 09:34 Dose: 100 mg Melatonin (Melatonin) 5 mg PO HS PRN PRN Reason: INSOMNIA Methylprednisolone Sodium Succinate (Solu-Medrol -) 60 mg IVPUSH Q6H-IV [facility] Last Admin: 10/07/18 08:32 Dose: 60 mg Mirtazapine (Remeron -) 30 mg PO DAILY [facility] Last Admin: 10/07/18 12:02 Dose: 30 mg Nicotine (Nicoderm Patch -) 21 mg TD DAILY [facility] Last Admin: 10/07/18 09:35 Dose: Not Given Nifedipine (Procardia Xl -) 30 mg PO DAILY [facility] Last Admin: 10/07/18 09:34 Dose: 30 mg Ranitidine HCl (Zantac -) 150 mg PO BID [facility] Sertraline HCl (Zoloft -) 50 mg PO DAILY [facility] Last Admin: 10/07/18 09:34 Dose: 50 mg Tiotropium [place] (Spiriva Respimat) 2 puff IH DAILY [facility] Last Admin: 10/07/18 09:35 Dose: 2 puff Trazodone HCl (Desyrel -) 100 mg PO [facility] ASSESSMENT AND PLAN: ASSESSMENT AND PLAN: This is a 53 year old woman with a history of HTN, hyperlipidemia, anxiety, depression, asthma, COPD, substance abuse who was sent to the ED from [facility] for evaluation of hypoxia. she is no change will add the solumdrol iv add cough syp continue rest of meds and nebulizer and will add pepcid to protect stomach bc on steroids for some time
[2018-10-07] MEDS: RANITIDINE HCL 150 MG TABLET (FP) PO SCH ×2 (14:02→22:02)
[2018-10-07] MEDS ORDERED: traZODone HCL 50 MG TABLET (FP) ONE (21:51)
[2018-10-07] MEDS: traZODone HCL 100 MG TABLET (FP) PO SCH (22:02)
[2018-10-07] MEDS: ATORVASTATIN CA 10 MG TABLET (FP) PO SCH (22:02)
[2018-10-08] MEDS: methylPREDNISolone NA SUCC 40 MG/1 ML VIAL IVPUSH SCH ×4 (02:36→21:42)
[2018-10-08 07:06] LABS: HEMOGLOBIN 11.2 GM/dL (10.7-15.3); MCH 29.7 pg (25.7-33.7); MCHC 31.9 g/dl (32.0-36.0); MEAN PLT VOLUME 8.2 fl (7.5-11.1); PLATELET COUNT 248 K/MM3 (134-434); RBC 3.76 M/mm3 (3.60-5.2); RDW 15.5 % (11.6-15.6)
[2018-10-08 07:46] LABS: ALBUMIN 2.9 g/dl (3.4-5.0); ALK PHOS 163 U/L (45-117); ANION GAP 7 MMOL/L (8-16); BILIRUBIN,TOTAL 0.1 mg/dL (0.2-1); BLOOD UREA NITROGEN 15 mg/dL (7-18); CALCIUM 8.7 mg/dL (8.5-10.1); CHLORIDE 102 mmol/L (98-107); CO2 29 mmol/L (21-32); CREATININE 0.6 mg/dL (0.55-1.3); GLUCOSE,RANDOM 136 mg/dL (74-106); POTASSIUM 4.4 mmol/L (3.5-5.1); SGOT/AST 25 U/L (15-37); SGPT/ALT 56 U/L (13-61); SODIUM 137 mmol/L (136-145); TOT PROT 6.8 g/dl (6.4-8.2)
[2018-10-08] MEDS: ALBUTEROL SO4 0.083% IH SOL 2.5 MG/3 ML VIAL.NEB. NEB PRN ×3 (08:15→20:35)
[2018-10-08] MEDS: HYDROCHLOROTHIAZIDE 12.5 MG CAPSULE (FP) PO SCH (10:20)
[2018-10-08] MEDS: RANITIDINE HCL 150 MG TABLET (FP) PO SCH ×2 (10:20→21:44)
[2018-10-08] MEDS: SERTRALINE HCL 50 MG TABLET (FP) PO SCH (10:20)
[2018-10-08] MEDS: NIFEdipine E.R. 30 MG TABLET (FP) PO SCH (10:20)
[2018-10-08] MEDS: ENOXAPARIN NA (PORCINE) 40 MG/0.4 ML DISP.SYRIN SQ SCH (10:21)
[2018-10-08] MEDS: NICOTINE 21 MG/24 HOURS TOPICAL PATCH TD SCH (10:21)
[2018-10-08] MEDS: LABETALOL HCL 100 MG TABLET (FP) PO SCH ×2 (10:21→21:44)
[2018-10-08] MEDS: MIRTAZAPINE 30 MG TABLET (FP) PO SCH (10:21)
[2018-10-08] MEDS: BUDESONIDE/FORMETEROL FUMARATE 160/4.5 mcg INHALER IH SCH ×2 (10:22→21:44)
[2018-10-08] MEDS: TIOTROPIUM BROMIDE 2.5 MCG (SPIRIVA) RESPIMAT INHALER IH SCH (10:22)
--- NOTE | 2018-10-08 16:30 | PN ---
Physical Exam: SUBJECTIVE: Patient seen and examined at bedside this morning. She endorses improvement of her shortness of breath with 2L nasal canula. She denies subjective fevers of chills overnight. She denies chest pain, palpitations, nausea, vomiting, diarrhea. OBJECTIVE: Vital Signs Period Temp Pulse Resp BP Sys/Weiner Pulse Ox Last 24 Hr 97.5 F-98.7 F 77-94 20-20 111-139/63-84 96-99 GENERAL: Awake, alert, and fully oriented. Anxious appearing. HEAD: Normal with no signs of trauma. EYES: Pupils equal, round and reactive to light, extraocular movements intact, sclera anicteric. EARS, NOSE, THROAT: Oropharynx clear without exudates. Moist mucous membranes. NECK: Normal range of motion, supple without lymphadenopathy. LUNGS: Good inspiratory effort. Breath sounds equal, with faint expiratory wheezing auscultated B/L lower lung lobes. No accessory muscle use. HEART: Regular rate and rhythm, normal S1 and S2 without murmur, rub or gallop. ABDOMEN: Obese. Soft, nontender to palpaiton. Not distended. Normoactive bowel sounds X4 quadrants. No guarding, no rebound tendernes. No hepatomegaly palpated or percussed. MUSCULOSKELETAL: Normal range of motion at all joints. No bony deformities or tenderness. Strength 5/5 B/L upper and lower extremities. UPPER EXTREMITIES: 2+ radial pulses B/L, warm, well-perfused. LOWER EXTREMITIES: 2+ dorsalis pedis pulses B/L, warm, well-perfused. No calf tenderness. No peripheral edema B/L. NEUROLOGICAL: Cranial nerves II-XII intact. Normal speech. PSYCHIATRIC: Cooperative. Anxious. SKIN: Warm, dry Laboratory Results - last 24 hr 10/08/18 10/08/18 06:00 06:00 WBC 7.0 RBC 3.76 Hgb 11.2 Hct 35.0 MCV 93.0 MCH 29.7 MCHC 31.9 L RDW 15.5 Plt Count 248 MPV 8.2 Sodium 137 Potassium 4.4 Chloride 102 Carbon Dioxide 29 Anion Gap 7 L BUN 15 Creatinine 0.6 Creat Clearance w eGFR > 60 Random Glucose 136 H Calcium 8.7 Total Bilirubin 0.1 L AST 25 ALT 56 Alkaline Phosphatase 163 H Total Protein 6.8 Albumin 2.9 L Active Medications Generic Name Dose Route Start Last Admin Trade Name Freq PRN Reason Stop Dose Admin Albuterol Sulfate 1 amp 10/05/18 19:07 10/08/18 08:15 Ventolin 0.083% Nebulizer Soln - NEB 1 amp Q4H PRN Administration SHORT OF BREATH/WHEEZING Atorvastatin Calcium 10 mg 10/05/18 22:00 10/07/18 22:02 Lipitor - PO 10 mg HS BETH Administration Budesonide/Formoterol Fumarate 2 puff 10/05/18 22:00 10/08/18 10:22 Symbicort 160/4.5mcg - IH 2 puff BID BETH Administration Enoxaparin Sodium 40 mg 10/05/18 17:30 10/08/18 10:21 Lovenox - SQ 40 mg DAILY BETH Administration Guaifenesin/Codeine Phosphate 5 ml 10/07/18 07:59 10/07/18 22:03 Robitussin Ac - PO 5 ml Q6H PRN Administration COUGH Hydrochlorothiazide 12.5 mg 10/06/18 10:00 10/08/18 10:20 Hctz - PO 12.5 mg DAILY BETH Administration Labetalol HCl 100 mg 10/05/18 22:00 10/08/18 10:21 Normodyne - PO 100 mg BID BETH Administration Melatonin 5 mg 10/05/18 18:07 Melatonin PO HS PRN INSOMNIA Methylprednisolone Sodium Succinate 60 mg 10/07/18 08:00 10/08/18 14:34 Solu-Medrol - IVPUSH 60 mg Q6H-IV BETH Administration Mirtazapine 30 mg 10/06/18 10:00 10/08/18 10:21 Remeron - PO 30 mg DAILY BETH Administration Nicotine 21 mg 10/06/18 10:00 10/08/18 10:21 Nicoderm Patch - TD Not Given DAILY BETH Nifedipine 30 mg 10/06/18 10:00 10/08/18 10:20 Procardia Xl - PO 30 mg DAILY BETH Administration Ranitidine HCl 150 mg 10/07/18 13:00 10/08/18 10:20 Zantac - PO 150 mg BID BETH Administration Sertraline HCl 50 mg 10/06/18 10:00 10/08/18 10:20 Zoloft - PO 50 mg DAILY BETH Administration Tiotropium [place] 2 puff 10/06/18 10:00 10/08/18 10:22 Spiriva Respimat IH 2 puff DAILY BETH Administration Trazodone HCl 100 mg 10/07/18 22:00 10/07/18 22:02 Desyrel - PO 100 mg HS BETH Administration ASSESSMENT/PLAN: Patient is a 53 year old female with history of polysubstance abuse (alcohol, crack cocaine), anxiety, depression, asthma, COPD, hypertension, hyperlipidemia , presents from [facility] after being informed that her oxygen saturation was low. Mild asthma exacerbation -SoluMedrol 60mg IV Q6H. Will consider tapering down tomorrow. -Ranitidine 150mg PO BID as patient is receiving steroids -Spiriva 2 puffs daily -Symbicort 160/ 4.5mcg 2 puffs IH BID -Albuterol nebulizer Q6H PRN -Robitussin AC 5mL Q6H PRN for cough -Maintain oxygen saturation greater than 90% Anxiety -Remeron 30mg PO HS -Sertaline 50mg PO daily -Trazodone 100mg PO HS History of polysubstane abuse -Patient has been in [facility] for rehab since 09/04/2018 -Counselled regarding importance of abstaining from alcohol, drugs -floor worker transfer bay evaluation Hypertension -Labetalol 100mg PO daily -Hydrochlorothiazide 12.5mg PO daily -Procardia XL 30mg PO daily Hyperlipidemia -Atorvastatin 10mg PO daily Nicotine dependence -Nicotine patch 21mg daily FEN -No IV fluids indicated -Follow CMP -Sodium controlled diet Prophylaxis -Lovenox 40mg subq daily -Ranitidine 150mg PO BID Disposition -Continue care in medical-surgical floor. Visit type - Emergency Visit Emergency Visit: Yes ED Registration Date: 10/05/18 Care time: The patient presented to the Emergency Department on the above date and was hospitalized for further evaluation of their emergent condition. - New Patient This patient is new to me today: No - Critical Care Critical Care patient: No - Discharge Referral Referred to [facility] Med P.C.: No
--- NOTE | 2018-10-08 19:18 | PN ---
Teaching Attending Note Name of Resident: Maynor Quinn ATTENDING PHYSICIAN STATEMENT I saw and evaluated the patient. I reviewed the resident's note and discussed the case with the resident. I agree with the resident's findings and plan as documented. SUBJECTIVE: Feels improved, still dyspneic. No fever/chills. OBJECTIVE: Afebrile/Hemodynamically Stable. Last Vital Signs Temp Pulse Resp BP Pulse Ox 98.4 F 80 20 119/63 96 10/08/18 13:20 10/08/18 13:20 10/08/18 17:00 10/08/18 13:20 10/08/18 17:00 HEENT - Atraumatic/Normocephalic Heart -S1, S2, RRR Lungs - occassional wheeze. Abdomen - Soft, non-tender. Bowel Sounds normal. Extremities - No calf tenderness. Laboratory Results - last 24 hr 10/08/18 10/08/18 06:00 06:00 WBC 7.0 RBC 3.76 Hgb 11.2 Hct 35.0 MCV 93.0 MCH 29.7 MCHC 31.9 L RDW 15.5 Plt Count 248 MPV 8.2 Sodium 137 Potassium 4.4 Chloride 102 Carbon Dioxide 29 Anion Gap 7 L BUN 15 Creatinine 0.6 Creat Clearance w eGFR > 60 Random Glucose 136 H Calcium 8.7 Total Bilirubin 0.1 L AST 25 ALT 56 Alkaline Phosphatase 163 H Total Protein 6.8 Albumin 2.9 L Current Medications Generic Name Dose Route Start Last Admin Trade Name Freq PRN Reason Stop Dose Admin Albuterol Sulfate 1 amp 10/05/18 19:07 10/08/18 17:39 Ventolin 0.083% Nebulizer Soln - NEB 1 amp Q4H PRN Administration SHORT OF BREATH/WHEEZING Atorvastatin Calcium 10 mg 10/05/18 22:00 10/07/18 22:02 Lipitor - PO 10 mg HS BETH Administration Budesonide/Formoterol Fumarate 2 puff 10/05/18 22:00 10/08/18 10:22 Symbicort 160/4.5mcg - IH 2 puff BID BETH Administration Enoxaparin Sodium 40 mg 10/05/18 17:30 10/08/18 10:21 Lovenox - SQ 40 mg DAILY BETH Administration Guaifenesin/Codeine Phosphate 5 ml 10/07/18 07:59 10/07/18 22:03 Robitussin Ac - PO 5 ml Q6H PRN Administration COUGH Hydrochlorothiazide 12.5 mg 10/06/18 10:00 10/08/18 10:20 Hctz - PO 12.5 mg DAILY BETH Administration Labetalol HCl 100 mg 10/05/18 22:00 10/08/18 10:21 Normodyne - PO 100 mg BID BETH Administration Melatonin 5 mg 10/05/18 18:07 Melatonin PO HS PRN INSOMNIA Methylprednisolone Sodium Succinate 60 mg 10/07/18 08:00 10/08/18 14:34 Solu-Medrol - IVPUSH 60 mg Q6H-IV BETH Administration Mirtazapine 30 mg 10/06/18 10:00 10/08/18 10:21 Remeron - PO 30 mg DAILY BETH Administration Nicotine 21 mg 10/06/18 10:00 10/08/18 10:21 Nicoderm Patch - TD Not Given DAILY BETH Nifedipine 30 mg 10/06/18 10:00 10/08/18 10:20 Procardia Xl - PO 30 mg DAILY BETH Administration Ranitidine HCl 150 mg 10/07/18 13:00 10/08/18 10:20 Zantac - PO 150 mg BID BETH Administration Sertraline HCl 50 mg 10/06/18 10:00 10/08/18 10:20 Zoloft - PO 50 mg DAILY BETH Administration Tiotropium [place] 2 puff 10/06/18 10:00 10/08/18 10:22 Spiriva Respimat IH 2 puff DAILY BETH Administration Trazodone HCl 100 mg 10/07/18 22:00 10/07/18 22:02 Desyrel - PO 100 mg HS BETH Administration ASSESSMENT AND PLAN: 53 year old female with history of HTN, hyperlipidemia, anxiety, depression, asthma, COPD, substance abuse who was sent to the ED from [facility] for evaluation of dyspnea and hypoxia reported at [facility]. She was recently discharged for similar symptoms and treated for AECOPD. 1. Acute Asthma/COPD exacerbation - recurrent No documented hypoxia so far. Prednisone escalated to IV Solumedrol. Continue Spiriva, DuoNeb and supplemental O2 as required. SpO2 on Room Air pre- and post - exertion requested. 2. HTN - Continue Procardia XL, Labetalol, HCTZ 3. Hyperlipidemia - Continue Lipitor 4. Depression with anxiety - Continue Zoloft, Remeron, Trazodone 5. Hx Substance abuse - previously at [facility] - [facility] to her current [facility]. 6. Nicotine dependence - counselled. Nicotine patch. 7. HLD - Continue Statin DVT Px - Lovenox SQ Dispo - Pre- and Post- exertion SpO2 required prior to addressing discharge options. Patient is homeless and [facility]. She is anxious to return to penitentiary given her brittle respiratory status.
[2018-10-08] MEDS ORDERED: traZODone HCL 50 MG TABLET (FP) ONE (20:55)
[2018-10-08] MEDS: traZODone HCL 100 MG TABLET (FP) PO SCH (21:42)
[2018-10-08] MEDS: ATORVASTATIN CA 10 MG TABLET (FP) PO SCH (21:43)
[2018-10-09] MEDS: methylPREDNISolone NA SUCC 40 MG/1 ML VIAL IVPUSH SCH ×2 (03:11→09:14)
[2018-10-09 07:09] LABS: HEMATOCRIT 34.9 % (32.4-45.2); HEMOGLOBIN 11.1 GM/dL (10.7-15.3); MCH 29.6 pg (25.7-33.7); MCHC 31.7 g/dl (32.0-36.0); MEAN CELL VOLUME 93.2 fl (80-96); MEAN PLT VOLUME 7.8 fl (7.5-11.1); PLATELET COUNT 319 K/MM3 (134-434); RBC 3.74 M/mm3 (3.60-5.2); RDW 15.8 % (11.6-15.6); WHITE BLOOD COUNT 12.8 K/mm3 (4.0-10.0)
[2018-10-09 07:43] LABS: ALBUMIN 2.8 g/dl (3.4-5.0); ALK PHOS 151 U/L (45-117); ANION GAP 8 MMOL/L (8-16); BILIRUBIN,TOTAL 0.2 mg/dL (0.2-1); BLOOD UREA NITROGEN 19 mg/dL (7-18); CALCIUM 8.7 mg/dL (8.5-10.1); CHLORIDE 103 mmol/L (98-107); CO2 28 mmol/L (21-32); CREATININE 0.6 mg/dL (0.55-1.3); GLUCOSE,RANDOM 148 mg/dL (74-106); POTASSIUM 3.9 mmol/L (3.5-5.1); SGOT/AST 20 U/L (15-37); SGPT/ALT 58 U/L (13-61); SODIUM 139 mmol/L (136-145); TOT PROT 6.7 g/dl (6.4-8.2)
[2018-10-09] MEDS: RANITIDINE HCL 150 MG TABLET (FP) PO SCH ×2 (09:16→21:49)
[2018-10-09] MEDS: MIRTAZAPINE 30 MG TABLET (FP) PO SCH (09:16)
[2018-10-09] MEDS: LABETALOL HCL 100 MG TABLET (FP) PO SCH ×2 (09:16→21:55)
[2018-10-09] MEDS: NIFEdipine E.R. 30 MG TABLET (FP) PO SCH (09:16)
[2018-10-09] MEDS: HYDROCHLOROTHIAZIDE 12.5 MG CAPSULE (FP) PO SCH (09:16)
[2018-10-09] MEDS: NICOTINE 21 MG/24 HOURS TOPICAL PATCH TD SCH (09:17)
[2018-10-09] MEDS: ENOXAPARIN NA (PORCINE) 40 MG/0.4 ML DISP.SYRIN SQ SCH (09:17)
[2018-10-09] MEDS: TIOTROPIUM BROMIDE 2.5 MCG (SPIRIVA) RESPIMAT INHALER IH SCH (09:18)
[2018-10-09] MEDS: BUDESONIDE/FORMETEROL FUMARATE 160/4.5 mcg INHALER IH SCH ×2 (09:18→21:57)
[2018-10-09] MEDS: SERTRALINE HCL 50 MG TABLET (FP) PO SCH (09:27)
[2018-10-09] MEDS: ALBUTEROL SO4 0.083% IH SOL 2.5 MG/3 ML VIAL.NEB. NEB PRN ×3 (09:49→21:00)
[2018-10-09] MEDS ORDERED: predniSONE 20 MG TABLET (UD) PO ONE (14:31)
--- NOTE | 2018-10-09 15:03 | PN ---
Physical Exam: SUBJECTIVE: Patient seen and examined at bedside this morning. She admits improvement of her cough and shortness of breath. She denies subjective fevers or chills, chest pain, palpitations, abdominal pain, nausea, vomiting. OBJECTIVE: Vital Signs Period Temp Pulse Resp BP Sys/Weiner Pulse Ox Last 24 Hr 97.1 F-98.1 F 69-102 18-20 110-148/54-81 95-97 GENERAL: Awake, alert, and fully oriented. Anxious appearing. HEAD: Normal with no signs of trauma. EYES: Pupils equal, round and reactive to light, extraocular movements intact, sclera anicteric. EARS, NOSE, THROAT: Oropharynx clear without exudates. Moist mucous membranes. NECK: Normal range of motion, supple without lymphadenopathy. LUNGS: Good inspiratory effort. Breath sounds equal, with faint expiratory wheezing auscultated B/L lower lung lobes. No accessory muscle use. HEART: Regular rate and rhythm, normal S1 and S2 without murmur, rub or gallop. ABDOMEN: Obese. Soft, nontender to palpaiton. Not distended. Normoactive bowel sounds X4 quadrants. No guarding, no rebound tendernes. No hepatomegaly palpated or percussed. MUSCULOSKELETAL: Normal range of motion at all joints. No bony deformities or tenderness. Strength 5/5 B/L upper and lower extremities. UPPER EXTREMITIES: 2+ radial pulses B/L, warm, well-perfused. LOWER EXTREMITIES: 2+ dorsalis pedis pulses B/L, warm, well-perfused. No calf tenderness. No peripheral edema B/L. NEUROLOGICAL: Cranial nerves II-XII intact. Normal speech. PSYCHIATRIC: Cooperative. Anxious. SKIN: Warm, dry Laboratory Results - last 24 hr 10/09/18 10/09/18 06:30 06:30 WBC 12.8 H RBC 3.74 Hgb 11.1 Hct 34.9 MCV 93.2 MCH 29.6 MCHC 31.7 L RDW 15.8 H Plt Count 319 D MPV 7.8 Sodium 139 Potassium 3.9 Chloride 103 Carbon Dioxide 28 Anion Gap 8 BUN 19 H Creatinine 0.6 Creat Clearance w eGFR > 60 Random Glucose 148 H Calcium 8.7 Total Bilirubin 0.2 AST 20 ALT 58 Alkaline Phosphatase 151 H Total Protein 6.7 Albumin 2.8 L Active Medications Generic Name Dose Route Start Last Admin Trade Name Freq PRN Reason Stop Dose Admin Albuterol Sulfate 1 amp 10/05/18 19:07 10/09/18 09:49 Ventolin 0.083% Nebulizer Soln - NEB 1 amp Q4H PRN Administration SHORT OF BREATH/WHEEZING Atorvastatin Calcium 10 mg 10/05/18 22:00 10/08/18 21:43 Lipitor - PO 10 mg HS BETH Administration Budesonide/Formoterol Fumarate 2 puff 10/05/18 22:00 10/09/18 09:18 Symbicort 160/4.5mcg - IH 2 puff BID BETH Administration Enoxaparin Sodium 40 mg 10/05/18 17:30 10/09/18 09:17 Lovenox - SQ 40 mg DAILY BETH Administration Guaifenesin/Codeine Phosphate 5 ml 10/07/18 07:59 10/07/18 22:03 Robitussin Ac - PO 5 ml Q6H PRN Administration COUGH Hydrochlorothiazide 12.5 mg 10/06/18 10:00 10/09/18 09:16 Hctz - PO 12.5 mg DAILY BETH Administration Labetalol HCl 100 mg 10/05/18 22:00 10/09/18 09:16 Normodyne - PO 100 mg BID BETH Administration Melatonin 5 mg 10/05/18 18:07 Melatonin PO HS PRN INSOMNIA Mirtazapine 30 mg 10/06/18 10:00 10/09/18 09:16 Remeron - PO 30 mg DAILY BETH Administration Nicotine 21 mg 10/06/18 10:00 10/09/18 09:17 Nicoderm Patch - TD Not Given DAILY [facility] Nifedipine 30 mg 10/06/18 10:00 10/09/18 09:16 Procardia Xl - PO 30 mg DAILY BETH Administration Ranitidine HCl 150 mg 10/07/18 13:00 10/09/18 09:16 Zantac - PO 150 mg BID BETH Administration Sertraline HCl 50 mg 10/06/18 10:00 10/09/18 09:27 Zoloft - PO 50 mg DAILY BETH Administration Tiotropium [place] 2 puff 10/06/18 10:00 10/09/18 09:18 Spiriva Respimat IH 2 puff DAILY BETH Administration Trazodone HCl 100 mg 10/07/18 22:00 10/08/18 21:42 Desyrel - PO 100 mg HS BETH Administration ASSESSMENT/PLAN: Patient is a 53 year old female with history of polysubstance abuse (alcohol, crack cocaine), anxiety, depression, asthma, COPD, hypertension, hyperlipidemia , presents from [facility] after being informed that her oxygen saturation was low. Mild asthma exacerbation -SoluMedrol 60mg IV Q6H. Will consider tapering down tomorrow. -Ranitidine 150mg PO BID as patient is receiving steroids -Spiriva 2 puffs daily -Symbicort 160/ 4.5mcg 2 puffs IH BID -Albuterol nebulizer Q6H PRN -Robitussin AC 5mL Q6H PRN for cough -Maintain oxygen saturation greater than 90% Leukocytosis -Likely secondary to steroid use. Patient currently afebrile. 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 Patient will require home oxygen, and is pending placement for pulmonary rehab. Visit type - Emergency Visit Emergency Visit: Yes ED Registration Date: 10/05/18 Care time: The patient presented to the Emergency Department on the above date and was hospitalized for further evaluation of their emergent condition. - New Patient This patient is new to me today: No - Critical Care Critical Care patient: No - Discharge Referral Referred to [facility] Med P.C.: No
--- NOTE | 2018-10-09 16:18 | PN ---
Teaching Attending Note Name of Resident: Maynor Quinn ATTENDING PHYSICIAN STATEMENT I saw and evaluated the patient. I reviewed the resident's note and discussed the case with the resident. I agree with the resident's findings and plan as documented. SUBJECTIVE: Dyspnea improving. No sputum/hemoptysis. No chest pain. No fever/ chills. OBJECTIVE: Afebrile/Hemodynamically Stable. Comfortable on supplemental O2. Last Vital Signs Temp Pulse Resp BP Pulse Ox 97.1 F L 89 20 148/78 95 10/09/18 14:46 10/09/18 14:46 10/09/18 14:46 10/09/18 14:46 10/09/18 09:50 HEENT - Atraumatic/Normocephalic Heart -S1, S2, RRR Lungs - occassional wheeze. Abdomen - Soft, non-tender. Bowel Sounds normal. Extremities - No calf tenderness. Laboratory Results - last 24 hr 10/09/18 10/09/18 06:30 06:30 WBC 12.8 H RBC 3.74 Hgb 11.1 Hct 34.9 MCV 93.2 MCH 29.6 MCHC 31.7 L RDW 15.8 H Plt Count 319 D MPV 7.8 Sodium 139 Potassium 3.9 Chloride 103 Carbon Dioxide 28 Anion Gap 8 BUN 19 H Creatinine 0.6 Creat Clearance w eGFR > 60 Random Glucose 148 H Calcium 8.7 Total Bilirubin 0.2 AST 20 ALT 58 Alkaline Phosphatase 151 H Total Protein 6.7 Albumin 2.8 L Current Medications Generic Name Dose Route Start Last Admin Trade Name Freq PRN Reason Stop Dose Admin Albuterol Sulfate 1 amp 10/05/18 19:07 10/09/18 15:53 Ventolin 0.083% Nebulizer Soln - NEB 1 amp Q4H PRN Administration SHORT OF BREATH/WHEEZING Atorvastatin Calcium 10 mg 10/05/18 22:00 10/08/18 21:43 Lipitor - PO 10 mg HS BETH Administration Budesonide/Formoterol Fumarate 2 puff 10/05/18 22:00 10/09/18 09:18 Symbicort 160/4.5mcg - IH 2 puff BID BETH Administration Enoxaparin Sodium 40 mg 10/05/18 17:30 10/09/18 09:17 Lovenox - SQ 40 mg DAILY BETH Administration Guaifenesin/Codeine Phosphate 5 ml 10/07/18 07:59 10/07/18 22:03 Robitussin Ac - PO 5 ml Q6H PRN Administration COUGH Hydrochlorothiazide 12.5 mg 10/06/18 10:00 10/09/18 09:16 Hctz - PO 12.5 mg DAILY BETH Administration Labetalol HCl 100 mg 10/05/18 22:00 10/09/18 09:16 Normodyne - PO 100 mg BID BETH Administration Melatonin 5 mg 10/05/18 18:07 Melatonin PO HS PRN INSOMNIA Mirtazapine 30 mg 10/06/18 10:00 10/09/18 09:16 Remeron - PO 30 mg DAILY BETH Administration Nicotine 21 mg 10/06/18 10:00 10/09/18 09:17 Nicoderm Patch - TD Not Given DAILY BETH Nifedipine 30 mg 10/06/18 10:00 10/09/18 09:16 Procardia Xl - PO 30 mg DAILY BETH Administration Ranitidine HCl 150 mg 10/07/18 13:00 10/09/18 09:16 Zantac - PO 150 mg BID BETH Administration Sertraline HCl 50 mg 10/06/18 10:00 10/09/18 09:27 Zoloft - PO 50 mg DAILY BETH Administration Tiotropium [place] 2 puff 10/06/18 10:00 10/09/18 09:18 Spiriva Respimat IH 2 puff DAILY BETH Administration Trazodone HCl 100 mg 10/07/18 22:00 10/08/18 21:42 Desyrel - PO 100 mg HS BETH Administration ASSESSMENT AND PLAN: 53 year old female with history of HTN, hyperlipidemia, anxiety, depression, asthma, COPD, substance abuse who was sent to the ED from [facility] for evaluation of dyspnea and hypoxia reported at [facility]. She was recently discharged after admission for similar symptoms and treated for AECOPD. 1. Acute on likely Chronic Hypoxic Respiratory Failure secondary to Acute Asthma /COPD exacerbation - recurrent SpO2 84% on room air For switch back to oral Prednisone 60mg. Continue Spiriva, DuoNeb and supplemental O2 as required. Will need to be discharged on slow tapering steroid course and on home supplemental O2. 2. HTN - Continue Procardia XL, Labetalol, HCTZ 3. Hyperlipidemia - Continue Lipitor 4. Depression with anxiety - Continue Zoloft, Remeron, Trazodone 5. Hx Substance abuse - previously at [facility] - was due for discharge back to senior care prior to her current hospitalization. Skilled Nursing unable to accommodate O2 - for SNF placement. 6. Nicotine dependence - counselled. Nicotine patch prescribed. 7. HLD - Continue Statin 8. Leukocytosis - sec to Steroid. Afebrile, Hemodynamically Stable - no evidence of infection. DVT Px - Lovenox SQ Dispo - awaiting placement as she is homeless and senior care is unable to accommodate O2.
[2018-10-09] MEDS ORDERED: traZODone HCL 50 MG TABLET (FP) ONE (20:43)
[2018-10-09] MEDS: ATORVASTATIN CA 10 MG TABLET (FP) PO SCH (21:49)
[2018-10-09] MEDS: traZODone HCL 100 MG TABLET (FP) PO SCH (21:55)
[2018-10-09] MEDS: guaiFENesin/CODEINE 5 ML UNIT-DOSE CUPS PO PRN (22:43)
[2018-10-10] MEDS: ALBUTEROL SO4 0.083% IH SOL 2.5 MG/3 ML VIAL.NEB. NEB PRN ×4 (00:10→15:37)
[2018-10-10 07:13] LABS: HEMATOCRIT 31.5 % (32.4-45.2); HEMOGLOBIN 10.7 GM/dL (10.7-15.3); MCH 31.5 pg (25.7-33.7); MCHC 33.9 g/dl (32.0-36.0); MEAN CELL VOLUME 92.9 fl (80-96); MEAN PLT VOLUME 7.4 fl (7.5-11.1); PLATELET COUNT 344 K/MM3 (134-434); RBC 3.39 M/mm3 (3.60-5.2); RDW 15.9 % (11.6-15.6); WHITE BLOOD COUNT 15.1 K/mm3 (4.0-10.0)
[2018-10-10 07:36] LABS: ALBUMIN 2.9 g/dl (3.4-5.0); ALK PHOS 135 U/L (45-117); ANION GAP 4 MMOL/L (8-16); BILIRUBIN,TOTAL 0.2 mg/dL (0.2-1); BLOOD UREA NITROGEN 22 mg/dL (7-18); CALCIUM 8.6 mg/dL (8.5-10.1); CHLORIDE 104 mmol/L (98-107); CO2 30 mmol/L (21-32); CREATININE 0.6 mg/dL (0.55-1.3); GLUCOSE,RANDOM 78 mg/dL (74-106); SGOT/AST 10 U/L (15-37); SGPT/ALT 47 U/L (13-61); SODIUM 138 mmol/L (136-145); TOT PROT 6.4 g/dl (6.4-8.2)
[2018-10-10] MEDS ORDERED: PT OWN MED DRAWER 7, Y5N ONE (08:59)
[2018-10-10] MEDS: ENOXAPARIN NA (PORCINE) 40 MG/0.4 ML DISP.SYRIN SQ SCH (09:35)
[2018-10-10] MEDS: NIFEdipine E.R. 30 MG TABLET (FP) PO SCH (09:36)
[2018-10-10] MEDS: HYDROCHLOROTHIAZIDE 12.5 MG CAPSULE (FP) PO SCH (09:36)
[2018-10-10] MEDS: LABETALOL HCL 100 MG TABLET (FP) PO SCH ×2 (09:36→22:59)
[2018-10-10] MEDS: MIRTAZAPINE 30 MG TABLET (FP) PO SCH (09:36)
[2018-10-10] MEDS: NICOTINE 21 MG/24 HOURS TOPICAL PATCH TD SCH (09:36)
[2018-10-10] MEDS: SERTRALINE HCL 50 MG TABLET (FP) PO SCH (09:36)
[2018-10-10] MEDS: RANITIDINE HCL 150 MG TABLET (FP) PO SCH ×2 (09:36→22:59)
[2018-10-10] MEDS: TIOTROPIUM BROMIDE 2.5 MCG (SPIRIVA) RESPIMAT INHALER IH SCH (09:37)
[2018-10-10] MEDS: BUDESONIDE/FORMETEROL FUMARATE 160/4.5 mcg INHALER IH SCH ×2 (09:37→23:01)
[2018-10-10] MEDS ORDERED: predniSONE 20 MG TABLET (UD) PO ONE (10:45)
--- NOTE | 2018-10-10 15:05 | PN ---
Physical Exam: SUBJECTIVE: Patient seen and examined at bedside this morning. She endorses complaint of throat irritation "something in the back of my throat" that has been intermittent beginning prior to hospitalization. Today, she denies worsening shortness of breath, productive cough, or hemoptysis. Patient also endorses complaint of right arm pain, that began this morning. She is not able to describe provocative features, or quality of the pain. OBJECTIVE: Vital Signs Period Temp Pulse Resp BP Sys/Weiner Pulse Ox Last 24 Hr 97.4 F-98.7 F 56-90 20-20 110-120/47-82 96-98 GENERAL: Awake, alert, and fully oriented. Anxious appearing. HEAD: Normal with no signs of trauma. EYES: Pupils equal, round and reactive to light, extraocular movements intact, sclera anicteric. EARS, NOSE, THROAT: Oropharynx clear without exudates. Moist mucous membranes. No stridor auscultated NECK: Normal range of motion, supple without lymphadenopathy. LUNGS: Good inspiratory effort. Breath sounds equal, faint bibasilar crackles without wheezing auscultated. No accessory muscle use. HEART: Regular rate and rhythm, normal S1 and S2 without murmur, rub or gallop. ABDOMEN: Obese. Soft, nontender to palpaiton. Not distended. Normoactive bowel sounds X4 quadrants. No guarding, no rebound tendernes. No hepatomegaly palpated or percussed. MUSCULOSKELETAL: Normal range of motion at all joints. Strength 5/5 B/L upper and lower extremities. Right arm is mildly tender to palpation, not swollen, firm, or erythematous. UPPER EXTREMITIES: 2+ radial pulses B/L, warm, well-perfused. LOWER EXTREMITIES: 2+ dorsalis pedis pulses B/L, warm, well-perfused. No calf tenderness. No peripheral edema B/L. NEUROLOGICAL: Cranial nerves II-XII intact. Normal speech. PSYCHIATRIC: Cooperative. Anxious. SKIN: Warm, dry Laboratory Results - last 24 hr 10/10/18 10/10/18 06:00 06:00 WBC 15.1 H RBC 3.39 L Hgb 10.7 Hct 31.5 L MCV 92.9 MCH 31.5 MCHC 33.9 RDW 15.9 H Plt Count 344 MPV 7.4 L Sodium 138 Potassium 4.0 Chloride 104 Carbon Dioxide 30 Anion Gap 4 L BUN 22 H Creatinine 0.6 Creat Clearance w eGFR > 60 Random Glucose 78 Calcium 8.6 Total Bilirubin 0.2 AST 10 L ALT 47 Alkaline Phosphatase 135 H Total Protein 6.4 Albumin 2.9 L Active Medications Generic Name Dose Route Start Last Admin Trade Name Freq PRN Reason Stop Dose Admin Albuterol Sulfate 1 amp 10/05/18 19:07 10/10/18 11:16 Ventolin 0.083% Nebulizer Soln - NEB 1 amp Q4H PRN Administration SHORT OF BREATH/WHEEZING Atorvastatin Calcium 10 mg 10/05/18 22:00 10/09/18 21:49 Lipitor - PO 10 mg HS BETH Administration Budesonide/Formoterol Fumarate 2 puff 10/05/18 22:00 10/10/18 09:37 Symbicort 160/4.5mcg - IH 2 puff BID BETH Administration Enoxaparin Sodium 40 mg 10/05/18 17:30 10/10/18 09:35 Lovenox - SQ 40 mg DAILY BETH Administration Hydrochlorothiazide 12.5 mg 10/06/18 10:00 10/10/18 09:36 Hctz - PO 12.5 mg DAILY BETH Administration Labetalol HCl 100 mg 10/05/18 22:00 10/10/18 09:36 Normodyne - PO 100 mg BID BETH Administration Melatonin 5 mg 10/05/18 18:07 Melatonin PO HS PRN INSOMNIA Mirtazapine 30 mg 10/06/18 10:00 10/10/18 09:36 Remeron - PO 30 mg DAILY BETH Administration Nicotine 21 mg 10/06/18 10:00 10/10/18 09:36 Nicoderm Patch - TD Not Given DAILY BETH Nifedipine 30 mg 10/06/18 10:00 10/10/18 09:36 Procardia Xl - PO 30 mg DAILY BETH Administration Ranitidine HCl 150 mg 10/07/18 13:00 10/10/18 09:36 Zantac - PO 150 mg BID BETH Administration Sertraline HCl 50 mg 10/06/18 10:00 10/10/18 09:36 Zoloft - PO 50 mg DAILY BETH Administration Tiotropium [place] 2 puff 10/06/18 10:00 10/10/18 09:37 Spiriva Respimat IH 2 puff DAILY BETH Administration Trazodone HCl 100 mg 10/07/18 22:00 10/09/18 21:55 Desyrel - PO 100 mg HS [facility] Administration ASSESSMENT/PLAN: Patient is a 53 year old female with history of polysubstance abuse (alcohol, crack cocaine), anxiety, depression, asthma, COPD, hypertension, hyperlipidemia , presents from [facility] after being informed that her oxygen saturation was low. Mild asthma exacerbation -Prednisone 40mg PO today. Will continue for 4 additional days. -Ranitidine 150mg PO BID as patient is receiving steroids -Spiriva 2 puffs daily -Symbicort 160/ 4.5mcg 2 puffs IH BID -Albuterol nebulizer Q6H PRN -Robitussin AC 5mL Q6H PRN for cough -Maintain oxygen saturation greater than 90% Musculoskeletal- strain of right arm -Will rule out DVT with duplex US right upper extremity. Pharyngeal irritation- likely Post-Nasal drip -No stridor, no wheezing auscultated. No pharyngeal exudates or lesions noted upon exam. -ENT consult (Dr. Rivas) Leukocytosis -Likely secondary to steroid use. Patient currently afebrile. 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 Patient will require home oxygen, and is pending placement for pulmonary rehab. Visit type - Emergency Visit Emergency Visit: Yes ED Registration Date: 10/10/18 Care time: The patient presented to the Emergency Department on the above date and was hospitalized for further evaluation of their emergent condition. - New Patient This patient is new to me today: No - Critical Care Critical Care patient: No - Discharge Referral Referred to [facility] No Physician Referral: Robert Flower MD ([facility])
--- NOTE | 2018-10-10 15:11 | PN ---
Teaching Attending Note Name of Resident: Maynor Quinn ATTENDING PHYSICIAN STATEMENT I saw and evaluated the patient. I reviewed the resident's note and discussed the case with the resident. I agree with the resident's findings and plan as documented. SUBJECTIVE: Dyspnea improving. Complains of something feeling like its stuck in her throat, irritating on inspiration. No sputum/hemoptysis. No chest pain. No fever/chills. Also complains of R arm pain. OBJECTIVE: Afebrile/Hemodynamically Stable. Comfortable on supplemental O2. Last Vital Signs Temp Pulse Resp BP Pulse Ox 98.2 F 87 20 115/70 98 10/10/18 13:33 10/10/18 13:33 10/10/18 13:33 10/10/18 13:33 10/10/18 09:00 HEENT - Atraumatic/Normocephalic. No pharyngeal erythema/exudate. Heart -S1, S2, RRR Lungs - occassional wheeze. No stridor. Abdomen - Soft, non-tender. Bowel Sounds normal. Extremities - No calf tenderness. Mild tenderness RUE. IV canula in place R wrist area - no surrounding edema/erythema. Laboratory Results - last 24 hr 10/10/18 10/10/18 06:00 06:00 WBC 15.1 H RBC 3.39 L Hgb 10.7 Hct 31.5 L MCV 92.9 MCH 31.5 MCHC 33.9 RDW 15.9 H Plt Count 344 MPV 7.4 L Sodium 138 Potassium 4.0 Chloride 104 Carbon Dioxide 30 Anion Gap 4 L BUN 22 H Creatinine 0.6 Creat Clearance w eGFR > 60 Random Glucose 78 Calcium 8.6 Total Bilirubin 0.2 AST 10 L ALT 47 Alkaline Phosphatase 135 H Total Protein 6.4 Albumin 2.9 L Current Medications Generic Name Dose Route Start Last Admin Trade Name Freq PRN Reason Stop Dose Admin Albuterol Sulfate 1 amp 10/05/18 19:07 10/10/18 11:16 Ventolin 0.083% Nebulizer Soln - NEB 1 amp Q4H PRN Administration SHORT OF BREATH/WHEEZING Atorvastatin Calcium 10 mg 10/05/18 22:00 10/09/18 21:49 Lipitor - PO 10 mg HS BETH Administration Budesonide/Formoterol Fumarate 2 puff 10/05/18 22:00 10/10/18 09:37 Symbicort 160/4.5mcg - IH 2 puff BID BETH Administration Enoxaparin Sodium 40 mg 10/05/18 17:30 10/10/18 09:35 Lovenox - SQ 40 mg DAILY BETH Administration Hydrochlorothiazide 12.5 mg 10/06/18 10:00 10/10/18 09:36 Hctz - PO 12.5 mg DAILY BETH Administration Labetalol HCl 100 mg 10/05/18 22:00 10/10/18 09:36 Normodyne - PO 100 mg BID BETH Administration Melatonin 5 mg 10/05/18 18:07 Melatonin PO HS PRN INSOMNIA Mirtazapine 30 mg 10/06/18 10:00 10/10/18 09:36 Remeron - PO 30 mg DAILY BETH Administration Nicotine 21 mg 10/06/18 10:00 10/10/18 09:36 Nicoderm Patch - TD Not Given DAILY BETH Nifedipine 30 mg 10/06/18 10:00 10/10/18 09:36 Procardia Xl - PO 30 mg DAILY BETH Administration Ranitidine HCl 150 mg 10/07/18 13:00 10/10/18 09:36 Zantac - PO 150 mg BID BETH Administration Sertraline HCl 50 mg 10/06/18 10:00 10/10/18 09:36 Zoloft - PO 50 mg DAILY BETH Administration Tiotropium [place] 2 puff 10/06/18 10:00 10/10/18 09:37 Spiriva Respimat IH 2 puff DAILY BETH Administration Trazodone HCl 100 mg 10/07/18 22:00 10/09/18 21:55 Desyrel - PO 100 mg HS BETH Administration ASSESSMENT AND PLAN: 53 year old female with history of HTN, hyperlipidemia, anxiety, depression, asthma, COPD, substance abuse who was sent to the ED from [facility] for evaluation of dyspnea and hypoxia reported at [facility]. She was recently discharged after admission for similar symptoms and treated for AECOPD. 1. Acute on likely Chronic Hypoxic Respiratory Failure secondary to Acute Asthma /COPD exacerbation - recurrent SpO2 84% on room air Transitioned to oral Prednisone 10/09 Continue Spiriva, DuoNeb and supplemental O2 as required. Will need to be discharged on slow tapering steroid course and on home supplemental O2. 2. HTN - Continue Procardia XL, Labetalol, HCTZ 3. Hyperlipidemia - Continue Lipitor 4. Depression with anxiety - Continue Zoloft, Remeron, Trazodone 5. Hx Substance abuse - previously at [facility] - [facility] for [facility] prior to her current hospitalization. [facility] unable to accommodate O2 - now awaiting SNF/alternative placement with access to Pulmonary Rehab. 6. Nicotine dependence - counselled. Nicotine patch prescribed. 7. HLD - Continue Statin 8. Leukocytosis - sec to Steroid. Afebrile, Hemodynamically Stable - no evidence of infection. 9. RUE pain/tenderness - RUE Duplex requested. 10. Sore throat - no pharyngeal erythema/exudate, no stridor. ENT will be contacted for evaluation. 11. Leukocytosis - sec to Steroid. DVT Px - Lovenox SQ Dispo - awaiting placement as she is homeless and [facility] is unable to accommodate O2.
[2018-10-10] MEDS ORDERED: ALBUTEROL SO4 2.5/IPRATROPIUM 0.5 INH SOL 3 ML VIAL.NEB. NEB ONE (19:39)
[2018-10-10] MEDS ORDERED: ALPRAZolam 0.25 MG TABLET PO ONE (19:39)
--- NOTE | 2018-10-10 20:14 | CON.ENT ---
Consult Consult Specialty:: ENT Referred by:: Dr. Quinn Reason for Consultation:: feels something in her throat - History of Present Illness History of Present Illness: 53 yo F hx IVDA in rehab @ [facility], known COPD, states off cigarettes and drugs for 37 days. says she was dx with thrush 1 week ago and was being given oral medication for thrush at [facility], but not taking anything for it since at [facility]. understands this is related to her steroids for COPD feels postnasal drip, feels ?mucus stuck in throat able to eat and drink well, no coughing, some nasal stuffiness but has had mild improvement since humidification of her oxygen hx migraine headaches, no heartburn or cough - History Source History Provided By: Patient, Medical Record Limitations to Obtaining History: No Limitations - Past Medical History Cardio/Vascular: Yes: HTN Pulmonary: Yes: COPD ...LMP: 09/26/16 ...: No - Alcohol/Substance Use Hx Alcohol Use: Yes - Smoking History Smoking history: Former smoker Have you smoked in the past 12 months: Yes Aproximately how many cigarettes per day: 5 If you are a former smoker, when did you quit?: 10/05/18 "35 days ago" Home Medications - Allergies Allergies/Adverse Reactions: Allergies Allergy/AdvReac Type Severity Reaction Status Date / Time No Known Allergies Allergy Verified 10/05/18 10:20 - Home Medications Home Medications: Ambulatory Orders Acetaminophen [Tylenol] 650 mg PO ASDIR 10/05/18 Albuterol 0.083% Nebulizer Jyoti [Ventolin 0.083%] 1 neb NEB QID 10/05/18 Albuterol 2.5/Ipratropium 0.5 [Duoneb -] 1 neb NEB Q4H 10/05/18 Atorvastatin Ca [Lipitor] 10 mg PO HS 10/05/18 Budesonide/Formeterol Fumarate [SYMBICORT 160/4.5mcg -] 1 inh PO BID 10/05/18 Clotrimazole [Mycelex Doron's -] 10 mg PO TID 10/05/18 Dextromethorphan/Benzocaine [Cepacol Sorethroat-Cough [place]] 1 each PO ASDIR 10/05 Guaifenesin [Robitussin] 100 mg PO DAILY 10/05/18 Hydrochlorothiazide 12.5 mg PO DAILY 10/05/18 Ibuprofen [Motrin -] 400 mg PO QID 10/05/18 Labetalol HCl [Normodyne -] 100 mg PO BID 10/05/18 Loperamide HCl [Imodium -] 4 mg PO QID 10/05/18 Mag Hydrox/Al Hydrox/Simeth [Mylanta Oral Suspension -] 1 dose PO ASDIR Magnesium Citrate [Citroma -] 195 ml PO ONCE 10/05/18 Magnesium Hydroxide [Milk of Magnesia] 400 mg PO DAILY 10/05/18 Melatonin 5 mg PO DAILY 10/05/18 Mirtazapine [Remeron -] 30 mg PO DAILY 10/05/18 Nifedipine [Procardia Xl] 30 mg PO DAILY 10/05/18 Pantoprazole Sodium [Protonix] 40 mg PO DAILY 10/05/18 95/Iron Fum/Folic/Dha [ + Dha Combo Pack] 1 each PO DAILY 10/05 Sertraline HCl [Zoloft -] 50 mg PO DAILY 10/05/18 Thiamine HCl [B-1] 100 mg PO HS 10/05/18 hydrOXYzine PAMOATE [Vistaril -] 50 mg PO TID 10/05/18 traZODone HCL [Trazodone HCl] 100 mg PO ASDIR 10/05/18 Albuterol Sulfate Inhaler - [Ventolin HFA Inhaler -] 2 puff IH Q4H PRN 10/08/18 Albuterol Sulfate [Ventolin -] 10/08/18 Nicotine Polacrilex [Nicotine Gum] 2 mg PO Q2H 10/08/18 Nicotine [Nicotrol] 1 puff IH Q2H PRN 10/08/18 Simvastatin 20 mg PO HS 10/08/18 Family Disease History - Family Disease History Family Disease History: Heart Disease: Father (HTN, ), Mother Physical Exam-ENT Vital Signs: Vital Signs Temperature 98.2 F 10/10/18 13:33 Pulse Rate 87 10/10/18 13:33 Respiratory Rate 20 10/10/18 13:33 Blood Pressure 115/70 10/10/18 13:33 O2 Sat by Pulse Oximetry (%) 98 10/10/18 09:00 Constitutional: Yes: No Distress, Calm Head: Yes: WNL Face: Yes: WNL Eyes: Yes: WNL Nose: Yes: Other (dry mucosa with crusting bilateral, no bleeding) Oral/Pharynx: Yes: Other (no lesions, very poor dentition with numerous decayed teeth (roots present)) Outer Ear: Yes: WNL Ear Canal: Yes: Cerumen, Other (cerumen impaction left ear, clear right ear canal) Tympanic Membrane: Yes: WNL, Other (WNL right ear, not visualized left ear ( cerumen)) Neck: Yes: WNL Extremities: Yes: WNL Problem List - Problems (1) Throat irritation Assessment/Plan: pt complains of throat irritation and mucus had been treated for thrush @ [facility] but this has not continued since transfer to [facility] [place] Recommend: resume/complete treatment for her previously diagnosed thrush. suggest Nystatin swish and swallow, but should review meds at [facility] if available consider background of GE reflux contributing to throat irritation, advise reflux precautions and dietary modification H2 blockers at medical team's discretion. Dental evaluation for advanced dental decay outpatient management of cerumen impaction (states known problem in past in left ear) also suggest nasal saline spray for her significant nasal dryness Thank you for consultation, Tung Rivas MD FACS Code(s): J39.2 - OTHER DISEASES OF PHARYNX
[2018-10-10] MEDS ORDERED: SODIUM CHLORIDE NASAL SPRAY 44 ML BOTTLE NS PRN (20:21)
[2018-10-10] MEDS ORDERED: traZODone HCL 50 MG TABLET (FP) ONE (21:54)
[2018-10-10] MEDS: ATORVASTATIN CA 10 MG TABLET (FP) PO SCH (22:59)
[2018-10-10] MEDS: traZODone HCL 100 MG TABLET (FP) PO SCH (22:59)
[2018-10-10] MEDS: SODIUM CHLORIDE NASAL SPRAY 44 ML BOTTLE NS SCH (23:00)
[2018-10-11] MEDS ORDERED: ALBUTEROL SO4 2.5/IPRATROPIUM 0.5 INH SOL 3 ML VIAL.NEB. NEB ONE (05:59)
--- NOTE | 2018-10-11 07:26 | PN ---
Physical Exam: SUBJECTIVE: Patient seen and examined at bedside this morning. Overnight she was anxious and received Xanax. Patient denies acute complaints this morning. She endorses improvement of her right arm pain. OBJECTIVE: Vital Signs Period Temp Pulse Resp BP Sys/Weiner Pulse Ox Last 24 Hr 97.6 F-98.2 F 75-90 20-20 114-117/70-82 98-98 GENERAL: Awake, alert, and fully oriented. Anxious appearing. HEAD: Normal with no signs of trauma. EYES: Pupils equal, round and reactive to light, extraocular movements intact, sclera anicteric. EARS, NOSE, THROAT: Oropharynx clear without exudates. Moist mucous membranes. No stridor auscultated NECK: Normal range of motion, supple without lymphadenopathy. LUNGS: Good inspiratory effort. Breath sounds equal, faint bibasilar crackles without wheezing auscultated. No accessory muscle use. HEART: Regular rate and rhythm, normal S1 and S2 without murmur, rub or gallop. ABDOMEN: Obese. Soft, nontender to palpaiton. Not distended. Normoactive bowel sounds X4 quadrants. No guarding, no rebound tendernes. No hepatomegaly palpated or percussed. MUSCULOSKELETAL: Normal range of motion at all joints. Strength 5/5 B/L upper and lower extremities. Right arm is mildly tender to palpation, not swollen, firm, or erythematous. UPPER EXTREMITIES: 2+ radial pulses B/L, warm, well-perfused. LOWER EXTREMITIES: 2+ dorsalis pedis pulses B/L, warm, well-perfused. No calf tenderness. No peripheral edema B/L. NEUROLOGICAL: Cranial nerves II-XII intact. Normal speech. PSYCHIATRIC: Cooperative. Anxious. SKIN: Warm, dry Laboratory Results - last 24 hr 10/10/18 10/10/18 06:00 06:00 WBC 15.1 H RBC 3.39 L Hgb 10.7 Hct 31.5 L MCV 92.9 MCH 31.5 MCHC 33.9 RDW 15.9 H Plt Count 344 MPV 7.4 L Sodium 138 Potassium 4.0 Chloride 104 Carbon Dioxide 30 Anion Gap 4 L BUN 22 H Creatinine 0.6 Creat Clearance w eGFR > 60 Random Glucose 78 Calcium 8.6 Total Bilirubin 0.2 AST 10 L ALT 47 Alkaline Phosphatase 135 H Total Protein 6.4 Albumin 2.9 L Active Medications Generic Name Dose Route Start Last Admin Trade Name Freq PRN Reason Stop Dose Admin Albuterol Sulfate 1 amp 10/11/18 07:17 Ventolin 0.083% Nebulizer Soln - NEB Q6H PRN SHORT OF BREATH/WHEEZING Atorvastatin Calcium 10 mg 10/05/18 22:00 10/10/18 22:59 Lipitor - PO 10 mg HS BETH Administration Budesonide/Formoterol Fumarate 2 puff 10/05/18 22:00 10/10/18 23:01 Symbicort 160/4.5mcg - IH 2 puff BID BETH Administration Enoxaparin Sodium 40 mg 10/05/18 17:30 10/10/18 09:35 Lovenox - SQ 40 mg DAILY BETH Administration Hydrochlorothiazide 12.5 mg 10/06/18 10:00 10/10/18 09:36 Hctz - PO 12.5 mg DAILY BETH Administration Labetalol HCl 100 mg 10/05/18 22:00 10/10/18 22:59 Normodyne - PO 100 mg BID BETH Administration Melatonin 5 mg 10/05/18 18:07 Melatonin PO HS PRN INSOMNIA Mirtazapine 30 mg 10/06/18 10:00 10/10/18 09:36 Remeron - PO 30 mg DAILY BETH Administration Nicotine 21 mg 10/06/18 10:00 10/10/18 09:36 Nicoderm Patch - TD Not Given DAILY BETH Nifedipine 30 mg 10/06/18 10:00 10/10/18 09:36 Procardia Xl - PO 30 mg DAILY BETH Administration Ranitidine HCl 150 mg 10/07/18 13:00 10/10/18 22:59 Zantac - PO 150 mg BID BETH Administration Sertraline HCl 50 mg 10/06/18 10:00 10/10/18 09:36 Zoloft - PO 50 mg DAILY BETH Administration Sodium Chloride 2 spray 10/10/18 22:00 10/10/18 23:00 [place] Nasal [place] - NS 2 spray BID BETH Administration Sodium Chloride 2 spray 10/10/18 20:21 [place] Nasal [place] - NS PRN PRN NASAL CONGESTION Tiotropium [place] 2 puff 10/06/18 10:00 10/10/18 09:37 Spiriva Respimat IH 2 puff DAILY BETH Administration Trazodone HCl 100 mg 10/07/18 22:00 10/10/18 22:59 Desyrel - PO 100 mg HS [facility] Administration ASSESSMENT/PLAN: Patient is a 53 year old female with history of polysubstance abuse (alcohol, crack cocaine), anxiety, depression, asthma, COPD, hypertension, hyperlipidemia , presents from [facility] after being informed that her oxygen saturation was low. Acute on chronic hypoxic respiratory failure- secondary to asthma, COPD exacerbation -Prednisone 40mg PO today. Will continue for 3 additional days. -Ranitidine 150mg PO BID as patient is receiving steroids -Spiriva 2 puffs daily -Symbicort 160/ 4.5mcg 2 puffs IH BID -Albuterol nebulizer Q6H PRN -Currently saturating well on 2L nasal canula. Maintain oxygen saturation greater than 90% Anxiety -Patient received Xanax 0.25mg PO yesterday. She is feeling less anxious today. -Remeron 30mg PO HS -Sertaline 50mg PO daily -Trazodone 100mg PO HS Musculoskeletal strain of right arm -Duplex US right upper extremity negative for DVT Post-Nasal drip -No stridor, no wheezing auscultated. No pharyngeal exudates or lesions noted upon exam. -ENT consult (Dr. Rivas) appreciated; nystatin swish and swallow, outpatient dental evaluation, outpatient ENT follow up for cerumen impaction -Saline nasal spray 2 spray NS BID, and as needed Oral thrush -Nystatin swish and swallow 500,000u PO Q6H Leukocytosis -Likely secondary to steroid use. Patient currently afebrile. 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 Patient will require home oxygen, and is pending placement for pulmonary rehab. Visit type - Emergency Visit Emergency Visit: Yes ED Registration Date: 10/10/18 Care time: The patient presented to the Emergency Department on the above date and was hospitalized for further evaluation of their emergent condition. - New Patient This patient is new to me today: No - Critical Care Critical Care patient: No - Discharge Referral Referred to [facility] No
[2018-10-11] MEDS ORDERED: PT OWN MED DRAWER 7, Y5N ONE ×2 (09:21→20:29)
[2018-10-11] MEDS: HYDROCHLOROTHIAZIDE 12.5 MG CAPSULE (FP) PO SCH (10:04)
[2018-10-11] MEDS: ENOXAPARIN NA (PORCINE) 40 MG/0.4 ML DISP.SYRIN SQ SCH (10:05)
[2018-10-11] MEDS: NICOTINE 21 MG/24 HOURS TOPICAL PATCH TD SCH (10:05)
[2018-10-11] MEDS: TIOTROPIUM BROMIDE 2.5 MCG (SPIRIVA) RESPIMAT INHALER IH SCH (10:05)
[2018-10-11] MEDS: NIFEdipine E.R. 30 MG TABLET (FP) PO SCH (10:05)
[2018-10-11] MEDS: SODIUM CHLORIDE NASAL SPRAY 44 ML BOTTLE NS SCH ×2 (10:05→21:34)
[2018-10-11] MEDS: MIRTAZAPINE 30 MG TABLET (FP) PO SCH (10:05)
[2018-10-11] MEDS: LABETALOL HCL 100 MG TABLET (FP) PO SCH ×2 (10:05→21:30)
[2018-10-11] MEDS: SERTRALINE HCL 50 MG TABLET (FP) PO SCH (10:06)
[2018-10-11] MEDS: BUDESONIDE/FORMETEROL FUMARATE 160/4.5 mcg INHALER IH SCH ×2 (10:06→21:34)
[2018-10-11] MEDS: RANITIDINE HCL 150 MG TABLET (FP) PO SCH ×2 (10:06→21:30)
[2018-10-11] MEDS: predniSONE 20 MG TABLET (UD) PO SCH (12:13)
[2018-10-11] MEDS: NYSTATIN 500,000 UNITS/5 ML SUSPENSION PO SCH ×2 (12:13→17:13)
--- NOTE | 2018-10-11 13:29 | PN ---
Teaching Attending Note Name of Resident: Maynor Quinn ATTENDING PHYSICIAN STATEMENT I saw and evaluated the patient. I reviewed the resident's note and discussed the case with the resident. I agree with the resident's findings and plan as documented. SUBJECTIVE: Dyspnea improving. Still complains of something feeling like its stuck in her throat, irritating on inspiration. No sputum/hemoptysis. No chest pain. No fever/chills. R arm pain improving. OBJECTIVE: Afebrile/Hemodynamically Stable. Comfortable on supplemental O2. Last Vital Signs Temp Pulse Resp BP Pulse Ox 97.7 F 85 20 112/67 90 L 10/11/18 13:18 10/11/18 13:18 10/11/18 13:18 10/11/18 13:18 10/11/18 12:33 HEENT - Atraumatic/Normocephalic. No pharyngeal erythema/exudate. Heart -S1, S2, RRR Lungs - good air entry - no wheeze or stridor. Abdomen - Soft, non-tender. Bowel Sounds normal. Extremities - No calf tenderness. Current Medications Generic Name Dose Route Start Last Admin Trade Name Freq PRN Reason Stop Dose Admin Albuterol Sulfate 1 amp 10/11/18 07:17 Ventolin 0.083% Nebulizer Soln - NEB Q6H PRN SHORT OF BREATH/WHEEZING Atorvastatin Calcium 10 mg 10/05/18 22:00 10/10/18 22:59 Lipitor - PO 10 mg HS BETH Administration Budesonide/Formoterol Fumarate 2 puff 10/05/18 22:00 10/11/18 10:06 Symbicort 160/4.5mcg - IH 2 puff BID BETH Administration Enoxaparin Sodium 40 mg 10/05/18 17:30 10/11/18 10:05 Lovenox - SQ 40 mg DAILY BETH Administration Hydrochlorothiazide 12.5 mg 10/06/18 10:00 10/11/18 10:04 Hctz - PO 12.5 mg DAILY BETH Administration Labetalol HCl 100 mg 10/05/18 22:00 10/11/18 10:05 Normodyne - PO 100 mg BID BETH Administration Melatonin 5 mg 10/05/18 18:07 Melatonin PO HS PRN INSOMNIA Mirtazapine 30 mg 10/06/18 10:00 10/11/18 10:05 Remeron - PO 30 mg DAILY BETH Administration Nicotine 21 mg 10/06/18 10:00 10/11/18 10:05 Nicoderm Patch - TD Not Given DAILY BETH Nifedipine 30 mg 10/06/18 10:00 10/11/18 10:05 Procardia Xl - PO 30 mg DAILY BETH Administration Nystatin 500,000 units 10/11/18 12:00 10/11/18 12:13 Nystatin Oral Suspension - PO 500,000 units Q6HPO BETH Administration Prednisone 40 mg 10/11/18 10:00 10/11/18 12:13 Deltasone - PO 10/14/18 22:00 40 mg DAILY BETH Administration Ranitidine HCl 150 mg 10/07/18 13:00 10/11/18 10:06 Zantac - PO 150 mg BID BETH Administration Sertraline HCl 50 mg 10/06/18 10:00 10/11/18 10:06 Zoloft - PO 50 mg DAILY BETH Administration Sodium Chloride 2 spray 10/10/18 22:00 10/11/18 10:05 [place] Nasal [place] - NS 2 spray BID BETH Administration Sodium Chloride 2 spray 10/10/18 20:21 [place] Nasal [place] - NS PRN PRN NASAL CONGESTION Tiotropium [place] 2 puff 10/06/18 10:00 10/11/18 10:05 Spiriva Respimat IH 2 puff DAILY BETH Administration Trazodone HCl 100 mg 10/07/18 22:00 10/10/18 22:59 Desyrel - PO 100 mg HS BETH Administration ASSESSMENT AND PLAN: 53 year old female with history of HTN, HLD, anxiety, depression, asthma, COPD, substance abuse who was sent to the ED from [facility] for evaluation of dyspnea and hypoxia reported at [facility]. She was recently discharged after admission for similar symptoms and treated for AECOPD. 1. Acute on likely Chronic Hypoxic Respiratory Failure secondary to Acute Asthma /COPD exacerbation - recurrent SpO2 84% on room air CXR - no acute findings, focal density near aortic knob, likely atelectasis. Transitioned to oral Prednisone 10/09 Continue Spiriva, DuoNeb and supplemental O2 as required. Will need to be discharged on slow tapering steroid course and on home supplemental O2. Pulm follow up on discharge. 2. HTN - Continue Procardia XL, Labetalol, HCTZ 3. Hyperlipidemia - Continue Lipitor 4. Depression with anxiety - Continue Zoloft, Remeron, Trazodone. 5. Hx Substance abuse - previously at [facility] - was due for discharge back to [facility] prior to her current hospitalization. [facility] unable to accommodate O2 - now awaiting SNF/alternative placement with access to Pulmonary Rehab. 6. Nicotine dependence - counselled. Nicotine patch prescribed. 7. HLD - Continue Statin. 8. Leukocytosis - sec to Steroid. Afebrile, Hemodynamically Stable - no evidence of infection. 9. RUE pain/tenderness, likely musculoskeletal - resolving. RUE Duplex negative for DVT 10. Sore throat - no pharyngeal erythema/exudate, no stridor. ENT evaluated - recommend resuming treatment for esophageal candidiasis with Nystatin, and H2 blossom coverage for possible GERD. 11. Leukocytosis - sec to Steroid. DVT Px - Lovenox SQ Dispo - awaiting placement as she is homeless and [facility] is unable to accommodate O2.
[2018-10-11] MEDS: ALBUTEROL SO4 0.083% IH SOL 2.5 MG/3 ML VIAL.NEB. NEB PRN (16:53)
[2018-10-11] MEDS ORDERED: traZODone HCL 50 MG TABLET (FP) ONE (20:29)
[2018-10-11] MEDS: traZODone HCL 100 MG TABLET (FP) PO SCH (21:29)
[2018-10-11] MEDS: ATORVASTATIN CA 10 MG TABLET (FP) PO SCH (21:30)
[2018-10-12] MEDS: NYSTATIN 500,000 UNITS/5 ML SUSPENSION PO SCH ×4 (00:38→17:11)
[2018-10-12] MEDS: ALBUTEROL SO4 0.083% IH SOL 2.5 MG/3 ML VIAL.NEB. NEB PRN ×3 (07:45→16:41)
[2018-10-12] MEDS: predniSONE 20 MG TABLET (UD) PO SCH (09:31)
[2018-10-12] MEDS: NICOTINE 21 MG/24 HOURS TOPICAL PATCH TD SCH (09:44)
[2018-10-12] MEDS: ENOXAPARIN NA (PORCINE) 40 MG/0.4 ML DISP.SYRIN SQ SCH (09:44)
[2018-10-12] MEDS: HYDROCHLOROTHIAZIDE 12.5 MG CAPSULE (FP) PO SCH (09:45)
[2018-10-12] MEDS: SERTRALINE HCL 50 MG TABLET (FP) PO SCH (09:45)
[2018-10-12] MEDS: NIFEdipine E.R. 30 MG TABLET (FP) PO SCH (09:45)
[2018-10-12] MEDS: MIRTAZAPINE 30 MG TABLET (FP) PO SCH (09:45)
[2018-10-12] MEDS: RANITIDINE HCL 150 MG TABLET (FP) PO SCH (09:45)
[2018-10-12] MEDS: LABETALOL HCL 100 MG TABLET (FP) PO SCH (09:46)
[2018-10-12] MEDS: BUDESONIDE/FORMETEROL FUMARATE 160/4.5 mcg INHALER IH SCH (09:48)
[2018-10-12] MEDS: TIOTROPIUM BROMIDE 2.5 MCG (SPIRIVA) RESPIMAT INHALER IH SCH (09:48)
[2018-10-12] MEDS: SODIUM CHLORIDE NASAL SPRAY 44 ML BOTTLE NS SCH (09:48)
--- NOTE | 2018-10-12 15:21 | PN ---
Teaching Attending Note Name of Resident: Maynor Quinn ATTENDING PHYSICIAN STATEMENT I saw and evaluated the patient. I reviewed the resident's note and discussed the case with the resident. I agree with the resident's findings and plan as documented. SUBJECTIVE: Dyspnea improved. No sputum/hemoptysis. No chest pain. No fever/ chills. R arm pain improved OBJECTIVE: Afebrile/Hemodynamically Stable. Comfortable on supplemental O2. Last Vital Signs Temp Pulse Resp BP Pulse Ox 97.9 F 87 20 128/69 98 10/12/18 13:43 10/12/18 13:43 10/12/18 13:43 10/12/18 13:43 10/12/18 09:00 HEENT - Atraumatic/Normocephalic. No pharyngeal erythema/exudate. Heart -S1, S2, RRR Lungs - good air entry - no wheeze or stridor. Abdomen - Soft, non-tender. Bowel Sounds normal. Extremities - No calf tenderness. Current Medications Generic Name Dose Route Start Last Admin Trade Name Freq PRN Reason Stop Dose Admin Albuterol Sulfate 1 amp 10/11/18 07:17 10/12/18 12:35 Ventolin 0.083% Nebulizer Soln - NEB 1 amp Q6H PRN Administration SHORT OF BREATH/WHEEZING Atorvastatin Calcium 10 mg 10/05/18 22:00 10/11/18 21:30 Lipitor - PO 10 mg HS BETH Administration Budesonide/Formoterol Fumarate 2 puff 10/05/18 22:00 10/12/18 09:48 Symbicort 160/4.5mcg - IH 2 puff BID BETH Administration Enoxaparin Sodium 40 mg 10/05/18 17:30 10/12/18 09:44 Lovenox - SQ 40 mg DAILY BETH Administration Hydrochlorothiazide 12.5 mg 10/06/18 10:00 10/12/18 09:45 Hctz - PO 12.5 mg DAILY BETH Administration Labetalol HCl 100 mg 10/05/18 22:00 10/12/18 09:46 Normodyne - PO Not Given BID BETH Melatonin 5 mg 10/05/18 18:07 Melatonin PO HS PRN INSOMNIA Mirtazapine 30 mg 10/06/18 10:00 10/12/18 09:45 Remeron - PO 30 mg DAILY BETH Administration Nicotine 21 mg 10/06/18 10:00 10/12/18 09:44 Nicoderm Patch - TD Not Given DAILY BETH Nifedipine 30 mg 10/06/18 10:00 10/12/18 09:45 Procardia Xl - PO 30 mg DAILY BETH Administration Nystatin 500,000 units 10/11/18 12:00 10/12/18 12:19 Nystatin Oral Suspension - PO 500,000 units Q6HPO BETH Administration Prednisone 40 mg 10/11/18 10:00 10/12/18 09:31 Deltasone - PO 10/14/18 22:00 40 mg DAILY BETH Administration Ranitidine HCl 150 mg 10/07/18 13:00 10/12/18 09:45 Zantac - PO 150 mg BID BETH Administration Sertraline HCl 50 mg 10/06/18 10:00 10/12/18 09:45 Zoloft - PO 50 mg DAILY BETH Administration Sodium Chloride 2 spray 10/10/18 22:00 10/12/18 09:48 [place] Nasal [place] - NS 2 spray BID BETH Administration Sodium Chloride 2 spray 10/10/18 20:21 [place] Nasal [place] - NS PRN PRN NASAL CONGESTION Tiotropium [place] 2 puff 10/06/18 10:00 10/12/18 09:48 Spiriva Respimat IH 2 puff DAILY BETH Administration Trazodone HCl 100 mg 10/07/18 22:00 10/11/18 21:29 Desyrel - PO 100 mg HS BETH Administration ASSESSMENT AND PLAN: 53 year old female with history of HTN, HLD, anxiety, depression, asthma, COPD, substance abuse who was sent to the ED from [facility] for evaluation of dyspnea and hypoxia reported at [facility]. She was recently discharged after admission for similar symptoms and treated for AECOPD. 1. Acute on likely Chronic Hypoxic Respiratory Failure secondary to Acute Asthma /COPD exacerbation - recurrent SpO2 84% on room air CXR - no acute findings, focal density near aortic knob, likely atelectasis. Transitioned to oral Prednisone 10/09 Continue Spiriva, DuoNeb and supplemental O2 as required. Medically stable for discharge on slow tapering steroid course and on home supplemental O2. Pulm follow up on discharge. 2. HTN - Continue Procardia XL, Labetalol, HCTZ 3. Hyperlipidemia - Continue Lipitor 4. Depression with anxiety - Continue Zoloft, Remeron, Trazodone. 5. Hx Substance abuse - previously at [facility] - [facility]. [facility] unable to accommodate O2 - now accepted at [facility] for Pulmonary Rehab, still awaiting authorization. 6. Nicotine dependence - counselled. Nicotine patch prescribed. 7. HLD - Continue Statin. 8. Leukocytosis - sec to Steroid. Afebrile, Hemodynamically Stable - no evidence of infection. 9. RUE pain/tenderness, likely musculoskeletal - resolving. RUE Duplex negative for DVT 10. Sore throat - no pharyngeal erythema/exudate, no stridor. ENT evaluated - recommend resuming treatment for esophageal candidiasis with Nystatin, and H2 blossom coverage for possible GERD. DVT Px - Lovenox SQ Dispo - awaiting insurance authorization for SNF placement for Pulm Rehab.
--- NOTE | 2018-10-12 16:02 | DS ---
Physical Exam: SUBJECTIVE: Patient seen and examined at bedside this morning. She does not endorse new complaints today. She is saturating well on 2 liter nasal canula. OBJECTIVE: Vital Signs Period Temp Pulse Resp BP Sys/Weiner Pulse Ox Last 24 Hr 97.8 F-98.5 F 71-90 18-20 94-128/51-72 98-99 PHYSICAL EXAM GENERAL: Awake, alert, and fully oriented. Anxious appearing. HEAD: Normal with no signs of trauma. EYES: Pupils equal, round and reactive to light, extraocular movements intact, sclera anicteric. EARS, NOSE, THROAT: Oropharynx clear without exudates. Moist mucous membranes. No stridor auscultated NECK: Normal range of motion, supple without lymphadenopathy. LUNGS: Good inspiratory effort. Breath sounds equal, faint bibasilar crackles without wheezing auscultated. No accessory muscle use. HEART: Regular rate and rhythm, normal S1 and S2 without murmur, rub or gallop. ABDOMEN: Obese. Soft, nontender to palpaiton. Not distended. Normoactive bowel sounds X4 quadrants. No guarding, no rebound tendernes. No hepatomegaly palpated or percussed. MUSCULOSKELETAL: Normal range of motion at all joints. Strength 5/5 B/L upper and lower extremities. Right arm is mildly tender to palpation, not swollen, firm, or erythematous. UPPER EXTREMITIES: 2+ radial pulses B/L, warm, well-perfused. LOWER EXTREMITIES: 2+ dorsalis pedis pulses B/L, warm, well-perfused. No calf tenderness. No peripheral edema B/L. NEUROLOGICAL: Cranial nerves II-XII intact. Normal speech. PSYCHIATRIC: Cooperative. Anxious. SKIN: Warm, dry LABS HOSPITAL COURSE: Date of Admission:10/10/18 Date of Discharge: 10/12/18 Patient is a 53 year old female with history of polysubstance abuse (alcohol, crack cocaine), anxiety, depression, asthma, COPD, hypertension, hyperlipidemia , presents from [facility] after being informed that her oxygen saturation was low. Patient was started on SoluMedrol, DuoNebs, Spiriva, Symbicort, and placed on 2L nasal canula to maintain oxygenation above 90%. Patient complained of post -nasal drip and was evaluated by otolaryngolosit who prescribed saline nasal spray and outpatient follow up. Nystatin for oral thrush. SoluMedrol was tapered to oral predisone taper. She was evaluated by respiratory therapist, and found to require home oxygen. Patient was not able to return to her [facility] with [facility] concentrator, and was discharged to [facility]. Patient was counselled regarding abstinence of alcohol and drugs. Patient to continue using home oxygen to maintain oxygen saturation greater than 90%. Minutes to complete discharge: 35 Discharge Summary Reason For Visit: HYPOXIA,CHRONIC OBST PULMONARY DISEASE Current Active Problems Anxiety (Acute) Asthma (Acute) Hypoxia (Acute) SOB (shortness of breath) (Acute) Throat irritation (Acute) Alcohol dependence (Chronic) COPD (chronic obstructive pulmonary disease) (Chronic) Cocaine dependence (Chronic) Depression (Chronic) Hypertension (Chronic) Nicotine dependence (Chronic) Condition: Stable - Instructions Diet, Activity, Other Instructions: You were admitted to the hospital due to difficulty breathing You were treated with steroids, and breathing treatments Continue taking your home medications as directed. You will use Saline nasal spray every 12 hours You are being discharged with home oxygen. Use 2-3 Liters as directed. You will continue taking Prednisone in a tapered dose. Follow the instructions: 10/12 take Prednisone 40mg 10/13 take Prednisone 40mg / take Prednisone 40mg 10/15 take Prednisone 30mg 10/16 take Prednisone 30mg 10/17 take Prednisone 30mg 10/18 take Prednisone 30mg / take Prednisone 30mg / take Prednisone 20mg 10/21 take Prednisone 20mg 10/22 take Prednisone 20mg 10/23 take Prednisone 20mg 10/24 take Prednisone 20mg 10/25 take Prednisone 10mg / take Prednisone 10mg / take Prednisone 10mg / take Prednisone 10mg / take Prednisone 10mg Follow up with your primary care physician within two- three days after hospital discharge. A referral to [facility] has been provided with Dr. Peralta. You will follow up with warehouse operations manager Dr. Agrawal. An appointment has been scheduled for you on 10/25/2018 at 3:00PM. Address is [address] [place] [address] Second Floor Room 209. A referral has been provided. Be sure to bring the referral and your Insurance card to your appointment. Follow up with Celebrity Manager Dr. Rivas within one week after discharge. Follow up with your dentist within one week after discharge. Return to the nearest Emergency Department if you experience any fevers, chills , shortness of breath, chest pain, palpitations, abdominal pain, nausea, vomiting. SNF INSTRUCTIONS Patient is discharged on home oxygen. Maintain oxygen saturation greater than 90 %. Patient will complete steroid taper for her acute asthma, COPD exacerbation. Nebulizer treatments Q4H PRN Taper patient nicotine patch as tolerated. Referrals: Fabricio Peralta MD [Staff Physician] - Tung Rivas MD [Staff Physician] - Kennedy Agrawal MD [Staff Physician] - 10/25/18 Disposition: TRANSFER ACUTE CARE/OTHER HOSP - Home Medications Comprehensive Discharge Medication List: Ambulatory Orders Acetaminophen [Tylenol] 650 mg PO ASDIR 10/05/18 Albuterol 0.083% Nebulizer Jyoti [Ventolin 0.083% Nebulizer Soln -] 1 neb NEB QID 10/05/18 Albuterol 2.5/Ipratropium 0.5 [Duoneb -] 1 neb NEB Q4H 10/05/18 Budesonide/Formeterol Fumarate [SYMBICORT 160/4.5mcg -] 1 inh PO BID 10/05/18 Hydrochlorothiazide 12.5 mg PO DAILY 10/05/18 Labetalol HCl [Normodyne -] 100 mg PO BID 10/05/18 Mag Hydrox/Al Hydrox/Simeth [Mylanta Oral Suspension -] 1 dose PO ASDIR Melatonin 5 mg PO DAILY 10/05/18 Mirtazapine [Remeron -] 30 mg PO DAILY 10/05/18 Nifedipine [Procardia Xl] 30 mg PO DAILY 10/05/18 95/Iron Fum/Folic/Dha [ + Dha Combo Pack] 1 each PO DAILY 10/05 Sertraline HCl [Zoloft -] 50 mg PO DAILY 10/05/18 Thiamine HCl [B-1] 100 mg PO HS 10/05/18 traZODone HCL [Trazodone HCl] 100 mg PO ASDIR 10/05/18 Albuterol Sulfate Inhaler - [Ventolin HFA Inhaler -] 2 puff IH Q4H PRN 10/08/18 Simvastatin 20 mg PO HS 10/08/18 Aclidinium [place] [Tudorza Pressair] 400 mcg IH 10/12/18 Budesonide/Formeterol Fumarate [SYMBICORT 160/4.5mcg -] 2 puff IH BID inhaler 10/12/18 Nicotine Patch [Nicoderm Patch -] 21 mg TD DAILY patch 10/12/18 Nystatin Oral Suspension - [Nystatin Oral Susp 923058 Units/5 ML -] 500,000 units PO Q6HPO cup 10/12/18 Ranitidine [Zantac -] 150 mg PO BID tablet 10/12/18 Sodium Chloride Nasal [place] [[place] Nasal [place] -] 2 spray NS BID spray This patient is new to me today: No Emergency Visit: Yes ED Registration Date: 10/10/18 Care time: The patient presented to the Emergency Department on the above date and was hospitalized for further evaluation of their emergent condition. Critical Care patient: No - Discharge Referral Referred to [facility] No Physician Referral: Robert Flower MD ([facility])
[2018-10-12 20:17] VITALS: BP 126/65; PULSE 98; TEMP 97.8
== END 2018-10-12 20:00 | DRG 133 ==
LOC: JER 10:10 → JERBED 16:13 → J7W 18:27 → OBSVTOIN 10-10 11:55
PROVIDERS: ADMIT Internal Medicine
DX: J96.21 Acute and chronic respiratory failure with hypoxia (principal); J44.1 Chronic obstructive pulmonary disease with (acute) exacerbation; F41.8 Other specified anxiety disorders; I10 Essential (primary) hypertension; E78.5 Hyperlipidemia, unspecified; D72.829 Elevated white blood cell count, unspecified; R00.0 Tachycardia, unspecified; J45.21 Mild intermittent asthma with (acute) exacerbation; R09.82 Postnasal drip; F10.20 Alcohol dependence, uncomplicated; E66.9 Obesity, unspecified; F14.20 Cocaine dependence, uncomplicated; F19.10 Other psychoactive substance abuse, uncomplicated; J39.2 Other diseases of pharynx; B37.0 Candidal stomatitis; F17.210 Nicotine dependence, cigarettes, uncomplicated; M79.621 Pain in right upper arm; Z59.0 Homelessness; Z68.30 Body mass index [BMI] 30.0-30.9, adult
CPT/HCPCS: 36415; 71045-TC-FY; 71046-TC-FY; 80053; 83735; 83880; 84100; 84484; 85025; 85027; 85379; 93971; 94640; 94761; 97116-GP; 97161-GP; 99284-25; G0378

== ENCOUNTER 2018-10-26 12:05 | Inpatient (IN) | payer OTHER ==
[2018-10-26] MEDS ORDERED: ALBUTEROL SO4 2.5/IPRATROPIUM 0.5 INH SOL 3 ML VIAL.NEB. NEB ONE ×3 (12:27→18:06)
--- NOTE | 2018-10-26 12:31 | PDOC ---
History of Present Illness - General Chief Complaint: Shortness of Breath Stated Complaint: SOB Time Seen by Provider: 10/26/18 12:16 History Source: Patient Exam Limitations: No Limitations - History of Present Illness Initial Comments: 53 yo F currently residing at [facility] for respiratory therapy has a pmh of COPD on 3L O2 permanently, HTN, HLD, asthma, anxiety, depression presents to the ED with SOB, difficulty breathing, dyspnea on exertion, bilateral leg pain and swelling, generalized weakness, and subjective fevers, chills, and rigors for the past 5 days. She states that 1 week ago her legs were not swollen and she was in a much better state of health. She admits to having needed to sleep with extra pillows at night recently and states she cannot lie flat at night otherwise she feels as if she is choking. She also reports saying her abdomen is swollen and distended as well. She denies chest pain, headache, nausea, vomiting, diaphoresis, back pain, recent travel, recent surgery, diarrhea, constipation, or chills. PCP: Lives in [facility] PSH: Appendectomy at age 17 Social Hx: Hasn't smoked in 50 days, denies drinking, history of smoking crack cocaine years ago Allergies: NKA, NKDA Past History - Past Medical History Allergies/Adverse Reactions: Allergies Allergy/AdvReac Type Severity Reaction Status Date / Time No Known Allergies Allergy Verified 10/26/18 12:31 Home Medications: Ambulatory Orders Acetaminophen [Tylenol] 650 mg PO ASDIR 10/05/18 Albuterol 0.083% Nebulizer Jyoti [Ventolin 0.083% Nebulizer Soln -] 1 neb NEB QID 10/05/18 Albuterol 2.5/Ipratropium 0.5 [Duoneb -] 1 neb NEB Q4H 10/05/18 Budesonide/Formeterol Fumarate [SYMBICORT 160/4.5mcg -] 1 inh PO BID 10/05/18 Hydrochlorothiazide 12.5 mg PO DAILY 10/05/18 Labetalol HCl [Normodyne -] 100 mg PO BID 10/05/18 Mag Hydrox/Al Hydrox/Simeth [Mylanta Oral Suspension -] 1 dose PO ASDIR Melatonin 5 mg PO DAILY 10/05/18 Mirtazapine [Remeron -] 30 mg PO DAILY 10/05/18 Nifedipine [Procardia Xl] 30 mg PO DAILY 10/05/18 95/Iron Fum/Folic/Dha [ + Dha Combo Pack] 1 each PO DAILY 10/05 Sertraline HCl [Zoloft -] 50 mg PO DAILY 10/05/18 Thiamine HCl [B-1] 100 mg PO HS 10/05/18 traZODone HCL [Trazodone HCl] 100 mg PO ASDIR 10/05/18 Albuterol Sulfate Inhaler - [Ventolin HFA Inhaler -] 2 puff IH Q4H PRN 10/08/18 Simvastatin 20 mg PO HS 10/08/18 Aclidinium [place] [Tudorza [place]] 400 mcg IH DAILY 10/12/18 Budesonide/Formeterol Fumarate [SYMBICORT 160/4.5mcg -] 2 puff IH BID inhaler 10/12/18 Nicotine Patch [Nicoderm Patch -] 21 mg TD DAILY patch 10/12/18 Nystatin Oral Suspension - [Nystatin Oral Susp [id number] Units/5 ML -] 500,000 units PO Q6HPO cup 10/12/18 Ranitidine [Zantac -] 150 mg PO BID tablet 10/12/18 Sodium Chloride Nasal [place] [[place] Nasal [place] -] 2 spray NS BID spray Anemia: No Asthma: Yes (ALBUTEROL) Cancer: No Cardiac Disorders: No CVA: No COPD: Yes (SYMBICORT) CHF: No Dementia: No Diabetes: No GI Disorders: No Disorders: No HTN: Yes (NIFEDIPINE) Hypercholesterolemia: Yes Kidney Stones: No Liver Disease: No Seizures: No Thyroid Disease: No - Surgical History Abdominal Surgery: Yes (APPENDICITIS AT AGE 17) Appendectomy: Yes Cardiac Surgery: No Cholecystectomy: No Lung Surgery: No Neurologic Surgery: No Orthopedic Surgery: No - Immunization History Immunization Up to Date: Yes - Suicide/Smoking/Psychosocial Hx Smoking History: Former smoker Have you smoked in the past 12 months: Yes Number of Cigarettes Smoked Daily: 5 If you are a former smoker, when did you quit?: 10/05/18 "35 days ago" 'Breaking Loose' booklet given: 09/04/18 Hx Alcohol Use: Yes Drug/Substance Use Hx: Yes (cocaine) Substance Use Type: Alcohol, Cocaine Hx Substance Use Treatment: Yes (completed inpatient rehab in 1993) Review of Systems - Review of Systems Able to Perform ROS?: Yes Comments:: CONSTITUTIONAL: Present: Fever, chills, fatigue EYES: Absent: visual changes ENT: Absent: ear pain, no sore throat CARDIOVASCULAR: Absent: chest pain, no palpitations RESPIRATORY: Present: Cough, SOB GI: Present: Abdominal pain Absent: no nausea, no vomiting, no constipation, no diarrhea GENITOURINARY: Absent: dysuria, no frequency, no hematuria MUSKULOSKELETAL: Absent: back pain, no arthralgia, no myalgia SKIN: Absent: rash NEURO: Absent: headache *Physical Exam - Physical Exam Comments: GENERAL: Well-appearing, well-nourished. No apparent distress. HEENT: Normocephalic, atraumatic. PERRL, EOM intact. CARDIOVASCULAR: Normal S1, S2. Tachycardic rate and regular rhythm. PULMONARY: Decreased breath sounds throughout, crackles at the bases. No rales or rhonchi. ABDOMEN: Distended and mildly TTP diffusely. Still soft, no rebound or guarding. EXTREMITIES: 3+ pitting edema in both legs up to the knee. Normal ROM in all four extremities. No gross deformities. SKIN: Warm, dry. No rash NEUROLOGICAL: No focal neurological deficits. ED Treatment Course - LABORATORY CBC & Chemistry Diagram: 10/26/18 13:30 10/26/18 13:30 - RADIOLOGY Radiology Studies Ordered: Category Date Time Status CHEST PA & LAT [RAD] Stat Radiology 10/26/18 12:27 Ordered Medical Decision Making - Medical Decision Making 53 yo F currently residing at [facility] for respiratory therapy has a pmh of COPD on 3L O2 permanently, HTN, HLD, asthma, anxiety, depression presents to the ED with SOB, difficulty breathing, dyspnea on exertion, bilateral leg pain and swelling, generalized weakness, and subjective fevers, chills, and rigors for the past 5 days. She states that 1 week ago her legs were not swollen and she was in a much better state of health. She admits to having needed to sleep with extra pillows at night recently and states she cannot lie flat at night otherwise she feels as if she is choking. She also reports saying her abdomen is swollen and distended as well. DDx IBNLT: Heart failure vs COPD exacerbation, PNA, pulmonary edema vs pleural effusion, ACS/LA, PE/DVT, influenza, other infection. Plan: Labs, Urine, CXR, EKG, flu swab, breathing treatments, ECHO, re-assess. ECHO showed some B lines. CTAP and CTA showed PE or acute pathology that would be causing this patient to experience anasarca. This is likely either a COPD exacerbation or a result of chronic steroid usage. - This patient becomes extremely short of breath and hypoxic with even minimal exertion. *DC/Admit/Observation/Transfer Diagnosis at time of Disposition: COPD exacerbation, Anasarca, SOB (shortness of breath) - Discharge Dispostion Condition at time of disposition: Guarded Decision to Admit order: Yes - Referrals Referrals: ON STAFF,NOT [Primary Care Provider] - - Patient Instructions - Post Discharge Activity
--- NOTE | 2018-10-26 13:16 | PDOC ---
Attending Attestation - HPI HPI: his patient is a 53 year old female with PMHx of COPD on 3L O2 at home, asthma, HTN, HLD, anxiety, depression, who presents from [place] with shortness of breath and difficulty breathing for 1 week. Patient states that prior to 1 week ago she felt fine but since then is unable to walk a few steps without becoming out of breath. She also states that she wakes up in the middle of the night out of breath despite sleeping on 3-4 pillows. She also reports bilateral leg swelling and pain. She also notes that her abdomen and breasts seem more swollen /full than normal. Also admits to subjective fever. She denies chest pain, headache, nausea, vomiting, diaphoresis, back pain, recent travel, recent surgery, diarrhea, constipation, or chills. PSH: Appendectomy at age 17 Social Hx: Hasn't smoked in 50 days, denies drinking, history of smoking crack cocaine years ago - Physicial Exam PE: Vitals: Triage Vital signs reviewed General Appearance: no acute distress, well nourished well developed Neck: Supple; No Nuchal rigidity Chest Wall: Nontender Cardiac: Regular rate and rhythm, no murmurs, no rubs, no gallops Lungs: Decreased breath sounds bilaterally. Abdomen: Soft, distended, normal bowel sounds, diffusely tender. Extremities: 3+ pitting edema. Full range of motion to all extremities, no cyanosis, clubbing. Skin: Warm and dry, no rashes or lesions, no rash, no petechiae Neuro: AOX3; Cranial Nerves 2-12 grossly intact, Strength intact to all extremities, Sensation intact to all extremities, gait not tested. Psych: Normal mood, normal affect <Mayi Rubio - Last Filed: 10/26/18 15:48> - Resident Resident Name: Sanjeev Tate - ED Attending Attestation I have performed the following: I have examined & evaluated the patient, The case was reviewed & discussed with the resident, I agree w/resident's findings & plan, Exceptions are as noted - Medical Decision Making 10/26/18 15:44 This patient is a 53 year old female with PMHx of COPD on 3L O2 at home, asthma , HTN, HLD, anxiety, depression, who presents from [place] with shortness of breath and difficulty breathing for 1 week. Patient states that prior to 1 week ago she felt fine but since then is unable to walk a few steps without becoming out of breath. She also states that she wakes up in the middle of the night out of breath despite sleeping on 3-4 pillows. She also reports bilateral leg swelling and pain. She also notes that her abdomen and breasts seem more swollen /full than normal. Also admits to subjective fever. We'll check labs EKG troponin and BNP chest x-ray observe and reassess Reevaluation troponin and BNP within normal limits given abdominal tenderness weight gain and lower extremity selling associated with shortness of breath we' ll perform CTA chest abdomen and abdomen pelvis with IV and reassess Dr. Gibson to follow up CT and dispo <Lamont Aldana - Last Filed: 10/26/18 16:20> Attestations - Attestations 10/26/18 13:25 Documentation prepared by Mayi Rubio, acting as medical affairs leader for Lamont Aldana MD. <Mayi Rubio - Last Filed: 10/26/18 15:48>
[2018-10-26 13:49] LABS: BASO % 1.1 % (0-2.0); EOS % 0.5 % (0-4.5); HEMATOCRIT 34.1 % (32.4-45.2); HEMOGLOBIN 11.6 GM/dL (10.7-15.3); LYMPH % 25.8 % (8-40); MCH 32.3 pg (25.7-33.7); MCHC 33.9 g/dl (32.0-36.0); MEAN CELL VOLUME 95.5 fl (80-96); MEAN PLT VOLUME 7.7 fl (7.5-11.1); MONO % 8.2 % (3.8-10.2); NEUT % 64.4 % (42.8-82.8); PLATELET COUNT 214 K/MM3 (134-434); RBC 3.57 M/mm3 (3.60-5.2); RDW 16.8 % (11.6-15.6); WHITE BLOOD COUNT 14.6 K/mm3 (4.0-10.0)
[2018-10-26 13:52] LABS: VENOUS PC02 46.9 mmHg (38-52); VENOUS PH 7.41 (7.32-7.42); VENOUS PO2 59.7 mmHg (28-48)
[2018-10-26 14:21] LABS: ALBUMIN 3.4 g/dl (3.4-5.0); ALK PHOS 92 U/L (45-117); ANION GAP 6 MMOL/L (8-16); BILIRUBIN,TOTAL 0.2 mg/dL (0.2-1); BLOOD UREA NITROGEN 18 mg/dL (7-18); CALCIUM 8.4 mg/dL (8.5-10.1); CHLORIDE 104 mmol/L (98-107); CO2 32 mmol/L (21-32); CREATININE 0.6 mg/dL (0.55-1.3); GLUCOSE,RANDOM 109 mg/dL (74-106); N-TERMINAL BNP 56.7 pg/ml (5-125); POTASSIUM 3.7 mmol/L (3.5-5.1); SGOT/AST 14 U/L (15-37); SGPT/ALT 40 U/L (13-61); SODIUM 141 mmol/L (136-145); TOT PROT 6.6 g/dl (6.4-8.2)
[2018-10-26 15:12] LABS: URINE APPEARANCE CLEAR; URINE BILIRUBIN NEGATIVE (<2.0 mg/dL); URINE COLOR YELLOW; URINE GLUCOSE (UA) NEGATIVE (NEGATIVE); URINE KETONE NEGATIVE (NEGATIVE); URINE LEUK ESTERASE 2+ (NEGATIVE); URINE NITRITE NEGATIVE (NEGATIVE); URINE PROTEIN NEGATIVE (NEGATIVE)
[2018-10-26 15:21] LABS: EPI CELLS RARE /HPF (FEW); URINE MUCUS RARE
[2018-10-26 19:13] LABS: ARTERIAL BLD GAS O2 SATURATION 96.8 % (90-98.9); ARTERIAL BLOOD GAS BASE EXCESS 4.4 meq/l (-2-2); ARTERIAL BLOOD GAS PO2 91.3 mmHg (80-100); CARBOXYHEMOGLOBIN 0.8 gm% (0.5-2.0)
[2018-10-26 19:14] LABS: ALLENS TEST POSITIVE
[2018-10-26] MEDS ORDERED: FUROSEMIDE 40 MG/4 ML INJECTABLE VIAL IVPUSH ONE ×2 (19:29)
--- NOTE | 2018-10-26 19:34 | HP ---
CHIEF COMPLAINT: " Worsening shortness of breath and swelling of the body x 1 week" PCP: HISTORY OF PRESENT ILLNESS: Patient is a 53 year old female presented from [facility] to the ED with the chief complaint of " Worsening shortness of breath and swelling of the body x 1 week". Patient was recently admitted at [facility] from 10/10/18 to 10/12/18 for evaluation of COPD Exacerbation and hypoxia, was sent to [facility] for short term pulmonary rehab. Patient states that she started having shortness of breath x 1 week, using about 7-8 pillows at night, disturbed sleep, cannot lay flat but denies chest pain or palpitations. Also reports that she noticed swelling of the legs initially then started having generalized swelling to the point that her breast got engorged, abdomen was distended. Patient also mentions she as been urinating more frequently and felt pressure in the suprapubic area. Due to these symptoms she called 911 and came to the ED for further evaluation. Bowel habit normal. Last BM was yesterday. ER course was notable for: (1) Afebrile, WBC 14.6; UA 2 + LE, WBC 10 (2) CT chest with contrast/ Abdomen/Pelvis CT No acute pathology (3) Duoneb, IV Lasix 20mg Recent Travel: None PAST MEDICAL HISTORY: Polysubstance abuse (alcohol, crack cocaine), anxiety, depression, asthma, COPD, hypertension, hyperlipidemia PAST SURGICAL HISTORY: Appendectomy Social History: Homeless Smoking: Quit smoking 08/2018. Smoke since a teenager approx 5 cigarettes/ day. Alcohol: Quit drinking 08/2018. Used to drink 1 pint of liquor on occasion. Drugs: Last cocaine use 08/2018 Family History: Mother: hypertension, CVA Father: at 62 years old from myocardial infarction Daughter: 23 years old, healthy Allergies No Known Allergies Allergy (Verified 10/26/18 12:31) HOME MEDICATIONS: Home Medications Medication Instructions Recorded Acetaminophen [Tylenol] 650 mg PO ASDIR 10/05/18 Albuterol 0.083% Nebulizer Jyoti 1 neb NEB QID 10/05/18 [Ventolin 0.083% Nebulizer Soln -] Albuterol 2.5/Ipratropium 0.5 1 neb NEB Q4H 10/05/18 [Duoneb -] Budesonide/Formeterol Fumarate 1 inh PO BID 10/05/18 [SYMBICORT 160/4.5mcg -] Hydrochlorothiazide 12.5 mg PO DAILY 10/05/18 Labetalol HCl [Normodyne -] 100 mg PO BID 10/05/18 Mag Hydrox/Al Hydrox/Simeth 1 dose PO ASDIR 10/05/18 [Mylanta Oral Suspension -] Melatonin 5 mg PO DAILY 10/05/18 Mirtazapine [Remeron -] 30 mg PO DAILY 10/05/18 Nifedipine [Procardia Xl] 30 mg PO DAILY 10/05/18 95/Iron Fum/Folic/Dha 1 each PO DAILY 10/05/18 [ + Dha Combo Pack] Sertraline HCl [Zoloft -] 50 mg PO DAILY 10/05/18 Thiamine HCl [B-1] 100 mg PO HS 10/05/18 traZODone HCL [Trazodone HCl] 100 mg PO ASDIR 10/05/18 Albuterol Sulfate Inhaler - 2 puff IH Q4H PRN 10/08/18 [Ventolin HFA Inhaler -] Simvastatin 20 mg PO HS 10/08/18 Aclidinium [place] [Tudorza 400 mcg IH DAILY 10/12/18 Pressair] Budesonide/Formeterol Fumarate 2 puff IH BID inhaler 10/12/18 [SYMBICORT 160/4.5mcg -] Nicotine Patch [Nicoderm Patch -] 21 mg TD DAILY patch 10/12/18 Nystatin Oral Suspension - 500,000 units PO Q6HPO cup 10/12/18 [Nystatin Oral Susp 514159 Units/5 ML -] Ranitidine [Zantac -] 150 mg PO BID tablet 10/12/18 Sodium Chloride Nasal [place] [[place] 2 spray NS BID spray 10/12/18 [place] Nasal [place] -] REVIEW OF SYSTEMS CONSTITUTIONAL: Absent: fever, chills, diaphoresis, generalized weakness, malaise, loss of appetite, weight change HEENT: Absent: rhinorrhea, nasal congestion, throat pain, throat swelling, difficulty swallowing, mouth swelling, ear pain, eye pain, visual changes CARDIOVASCULAR: Absent: chest pain, syncope, palpitations, irregular heart rate, lightheadedness , peripheral edema RESPIRATORY: Present: shortness of breath, dyspnea with exertion, orthopnea, Absent: cough, wheezing, stridor, hemoptysis GASTROINTESTINAL: Absent: abdominal pain, abdominal distension, nausea, vomiting, diarrhea, constipation, melena, hematochezia GENITOURINARY: Present: dysuria, frequency, Absent: urgency, hesitancy, hematuria, flank pain, genital pain MUSCULOSKELETAL: Absent: myalgia, arthralgia, joint swelling, back pain, neck pain SKIN: Absent: rash, itching, pallor HEMATOLOGIC/IMMUNOLOGIC: Absent: easy bleeding, easy bruising, lymphadenopathy, frequent infections ENDOCRINE: Absent: unexplained weight gain, unexplained weight loss, heat intolerance, cold intolerance NEUROLOGIC: Absent: headache, focal weakness or paresthesias, dizziness, unsteady gait, seizure, mental status changes, bladder or bowel incontinence PSYCHIATRIC: Absent: anxiety, depression, suicidal or homicidal ideation, hallucinations. PHYSICAL EXAMINATION Vital Signs - 24 hr 10/26/18 10/26/18 10/26/18 12:05 13:05 18:30 Temperature 98.9 F 97.9 F Pulse Rate 96 H Pulse Rate [ 109 H Apical] Respiratory 18 24 H Rate Blood Pressure 119/79 Blood Pressure 114/74 [Left Arm] O2 Sat by Pulse 100 99 100 Oximetry (%) GENERAL: Awake, alert, and fully oriented, in no acute distress. HEAD: Normal with no signs of trauma. EYES: Pupils equal, round and reactive to light, extraocular movements intact, sclera anicteric, conjunctiva clear. No lid lag. EARS, NOSE, THROAT: Ears normal, nares patent, oropharynx clear without exudates. Moist mucous membranes. NECK: Normal range of motion, supple without lymphadenopathy, JVD, or masses. LUNGS: Breath sounds equal, clear to auscultation bilaterally. No wheezes, and no crackles. No accessory muscle use. HEART: Regular rate and rhythm, normal S1 and S2 without murmur, rub or gallop. ABDOMEN: Soft, nontender, not distended, normoactive bowel sounds, no guarding, no rebound, no masses. No hepatomegaly or splenomegaly. MUSCULOSKELETAL: Normal range of motion at all joints. No bony deformities or tenderness. No CVA tenderness. UPPER EXTREMITIES: 2+ pulses, warm, well-perfused. No cyanosis. No clubbing. No peripheral edema. LOWER EXTREMITIES: 2+ pulses, warm, well-perfused. No calf tenderness. No peripheral edema. NEUROLOGICAL: Cranial nerves II-XII intact. Normal speech. Normal gait. PSYCHIATRIC: Cooperative. Good eye contact. Appropriate mood and affect. SKIN: Warm, dry, normal turgor, no rashes or lesions noted, normal capillary refill. Laboratory Results - last 24 hr 10/26/18 10/26/18 10/26/18 13:30 13:30 13:30 WBC 14.6 H RBC 3.57 L Hgb 11.6 Hct 34.1 MCV 95.5 MCH 32.3 MCHC 33.9 RDW 16.8 H Plt Count 214 D MPV 7.7 Absolute Neuts (auto) 9.4 H Neutrophils % 64.4 Lymphocytes % 25.8 Monocytes % 8.2 Eosinophils % 0.5 Basophils % 1.1 Nucleated RBC % 0 Anticoagulation Therapy Puncture Site ABG pH ABG pCO2 at Pt Temp ABG pO2 at Pt Temp ABG HCO3 ABG O2 Sat (Measured) ABG O2 Content ABG Base Excess Chris Test VBG pH POC VBG pCO2 POC VBG pO2 Mixed VBG HCO3 Carboxyhemoglobin Methemoglobin O2 Delivery Device Oxygen Flow Rate Vent Mode Vent Rate Mechanical Rate Pressure Support Vent Sodium 141 Potassium 3.7 Chloride 104 Carbon Dioxide 32 Anion Gap 6 L BUN 18 Creatinine 0.6 Creat Clearance w eGFR > 60 Random Glucose 109 H Calcium 8.4 L Total Bilirubin 0.2 AST 14 L ALT 40 Alkaline Phosphatase 92 Troponin I B-Natriuretic Peptide Total Protein 6.6 Albumin 3.4 TSH Urine Color Urine Appearance Urine pH Ur Specific [place] Urine Protein Urine Glucose (UA) Urine Ketones Urine Blood Urine Nitrite Urine Bilirubin Urine Urobilinogen Ur Leukocyte Esterase Urine WBC (Auto) Urine RBC (Auto) Ur Epithelial Cells Urine Mucus Influenza A (Rapid) Negative Influenza B (Rapid) Negative 10/26/18 10/26/18 10/26/18 13:30 13:30 13:30 WBC RBC Hgb Hct MCV MCH MCHC RDW Plt Count MPV Absolute Neuts (auto) Neutrophils % Lymphocytes % Monocytes % Eosinophils % Basophils % Nucleated RBC % Anticoagulation Therapy Puncture Site ABG pH ABG pCO2 at Pt Temp ABG pO2 at Pt Temp ABG HCO3 ABG O2 Sat (Measured) ABG O2 Content ABG Base Excess Chris Test VBG pH 7.41 POC VBG pCO2 46.9 POC VBG pO2 59.7 H Mixed VBG HCO3 29.3 H Carboxyhemoglobin Methemoglobin O2 Delivery Device Oxygen Flow Rate Vent Mode Vent Rate Mechanical Rate Pressure Support Vent Sodium Potassium Chloride Carbon Dioxide Anion Gap BUN Creatinine Creat Clearance w eGFR Random Glucose Calcium Total Bilirubin AST ALT Alkaline Phosphatase Troponin I < 0.02 B-Natriuretic Peptide 56.7 Total Protein Albumin TSH 0.83 Urine Color Urine Appearance Urine pH Ur Specific [place] Urine Protein Urine Glucose (UA) Urine Ketones Urine Blood Urine Nitrite Urine Bilirubin Urine Urobilinogen Ur Leukocyte Esterase Urine WBC (Auto) Urine RBC (Auto) Ur Epithelial Cells Urine Mucus Influenza A (Rapid) Influenza B (Rapid) 10/26/18 10/26/18 14:55 19:02 WBC RBC Hgb Hct MCV MCH MCHC RDW Plt Count MPV Absolute Neuts (auto) Neutrophils % Lymphocytes % Monocytes % Eosinophils % Basophils % Nucleated RBC % Anticoagulation Therapy No Result Required. Puncture Site Right radial ABG pH 7.40 ABG pCO2 at Pt Temp 48.0 H ABG pO2 at Pt Temp 91.3 D ABG HCO3 29.4 H ABG O2 Sat (Measured) 96.8 ABG O2 Content 16.1 ABG Base Excess 4.4 H Chris Test Positive VBG pH POC VBG pCO2 POC VBG pO2 Mixed VBG HCO3 Carboxyhemoglobin 0.8 Methemoglobin 0.5 O2 Delivery Device Nasal cannula Oxygen Flow Rate 3% Vent Mode No Result Required. Vent Rate No Result Required. Mechanical Rate No Result Required. Pressure Support Vent No Result Required. Sodium Potassium Chloride Carbon Dioxide Anion Gap BUN Creatinine Creat Clearance w eGFR Random Glucose Calcium Total Bilirubin AST ALT Alkaline Phosphatase Troponin I B-Natriuretic Peptide Total Protein Albumin TSH Urine Color Yellow Urine Appearance Clear Urine pH 5.0 D Ur Specific [place] 1.023 Urine Protein Negative Urine Glucose (UA) Negative Urine Ketones Negative Urine Blood Negative Urine Nitrite Negative Urine Bilirubin Negative Urine Urobilinogen 2.0 H Ur Leukocyte Esterase 2+ H Urine WBC (Auto) 10 Urine RBC (Auto) 1 Ur Epithelial Cells Rare Urine Mucus Rare Influenza A (Rapid) Influenza B (Rapid) ASSESSMENT/PLAN: Patient is a 53 year old female with significant past medical history of Polysubstance abuse (alcohol, crack cocaine), anxiety, depression, asthma, COPD , hypertension, hyperlipidemia presented from [facility] to the ED with the chief complaint of " Worsening shortness of breath and swelling of the body x 1 week". # Shortness of breath likely due to COPD Exacerbation Shortness of breath unlikely from CHF, last Echo in 09/11 Normal, BNP this admission 56.7 Continue Albuterol/Duoneb/ Symbicort Patient was discharged on prednisone taper, will continue it: Prednisone 10mg x 4 more days # Anasarca Unlikely from CHF. TSH normal so unlikely from Myxedema, Abdomen/Pelvis IV Lasix 20mg given, will monitor Urine output. Strict I's and O's Daily Weight. # UTI UA shows 2 + LE, WBC 10, IV Ceftriaxone 1gm daily, change abx as per urine culture/sensitivity # Polysubstance abuse Stopped using illicit drugs since 09/11 as per the patient. U. tox pending # Depression/Anxiety Continue Zoloft 50 mg daily # Smoker Nicotine patch # FEN Not on IV Fluids, can tolerate PO Electrolytes WNL Chol controlled diet # Prophylaxis For DVT: On Heparin 5000 IU sq TID For GI: Not indicated # Code Status: Full Code # Dispo: Admit to Med. Surg. Illness, Investigation and Plan of care explained to the patient. She verbalized understanding. Case discussed with Dr. Brice.
--- NOTE | 2018-10-26 19:50 | PN ---
Teaching Attending Note Name of Resident: Mattie Willingham ATTENDING PHYSICIAN STATEMENT I saw and evaluated the patient. I reviewed the resident's note and discussed the case with the resident. I agree with the resident's findings and plan as documented. SUBJECTIVE: Patient is a 53 year old woman with PMH of COPD on 3L O2 at home, asthma, HTN, HLD, anxiety and depression, who presents from [facility] with shortness of breath and difficulty breathing for 1 week. Patient states that prior to 1 week ago she felt fine but since then is unable to walk a few steps without becoming out of breath. She also states that she wakes up in the middle of the night out of breath despite sleeping on 3-4 pillows. She also reports bilateral leg swelling and pain. She also notes that her abdomen and breasts seem more swollen /full than normal. Also admits to subjective fever. She denies chest pain, headache, nausea, vomiting, diaphoresis, back pain, recent travel, recent surgery, diarrhea, constipation, or chills. OBJECTIVE: Alert Vital Signs Period Temp Pulse Resp BP Sys/Weiner Pulse Ox Last 24 Hr 97.9 F-98.9 F 96-109 18-24 114-119/74-79 99-100 HEENT: No Jaundice, eye redness or discharge, PERRLA, EOMI. Normocephalic, atraumatic. External ears are normal and hearing is grossly intact. No nasal discharge. Neck: Supple, nontender. No palpable adenopathy or thyromegaly. No JVD Chest: Good effort. Clear to auscultation and percussion. Heart: Regular. No S3, rub or murmur Abdomen: Distended, abdominal wall edema; soft, nontender and no HSM. No rebound or guarding. Normoactive bowel sounds. Ext: Peripheral pulses intact. Anasarca. Leg edema. Skin: Warm and dry. No petechiae, rash or ecchymosis. Neuro: Alert. Oriented x3. CN 2-12 grossly intact. Sensation grossly intact in all four extremities and DTR are symmetric. Home Medications Medication Instructions Recorded Acetaminophen [Tylenol] 650 mg PO ASDIR 10/05/18 Albuterol 0.083% Nebulizer Jyoti 1 neb NEB QID 10/05/18 [Ventolin 0.083% Nebulizer Soln -] Albuterol 2.5/Ipratropium 0.5 1 neb NEB Q4H 10/05/18 [Duoneb -] Budesonide/Formeterol Fumarate 1 inh PO BID 10/05/18 [SYMBICORT 160/4.5mcg -] Hydrochlorothiazide 12.5 mg PO DAILY 10/05/18 Labetalol HCl [Normodyne -] 100 mg PO BID 10/05/18 Mag Hydrox/Al Hydrox/Simeth 1 dose PO ASDIR 10/05/18 [Mylanta Oral Suspension -] Melatonin 5 mg PO DAILY 10/05/18 Mirtazapine [Remeron -] 30 mg PO DAILY 10/05/18 Nifedipine [Procardia Xl] 30 mg PO DAILY 10/05/18 95/Iron Fum/Folic/Dha 1 each PO DAILY 10/05/18 [ + Dha Combo Pack] Sertraline HCl [Zoloft -] 50 mg PO DAILY 10/05/18 Thiamine HCl [B-1] 100 mg PO HS 10/05/18 traZODone HCL [Trazodone HCl] 100 mg PO ASDIR 10/05/18 Albuterol Sulfate Inhaler - 2 puff IH Q4H PRN 10/08/18 [Ventolin HFA Inhaler -] Simvastatin 20 mg PO HS 10/08/18 Aclidinium [place] [Tudorza 400 mcg IH DAILY 10/12/18 Pressair] Budesonide/Formeterol Fumarate 2 puff IH BID inhaler 10/12/18 [SYMBICORT 160/4.5mcg -] Nicotine Patch [Nicoderm Patch -] 21 mg TD DAILY patch 10/12/18 Nystatin Oral Suspension - 500,000 units PO Q6HPO cup 10/12/18 [Nystatin Oral Susp 280551 Units/5 ML -] Ranitidine [Zantac -] 150 mg PO BID tablet 10/12/18 Sodium Chloride Nasal [place] [[place] 2 spray NS BID spray 10/12/18 Brutus Nasal Br[place] -] Abnormal Lab Results 10/26/18 10/26/18 10/26/18 13:30 13:30 13:30 WBC 14.6 H RBC 3.57 L RDW 16.8 H Absolute Neuts (auto) 9.4 H ABG pCO2 at Pt Temp ABG HCO3 ABG Base Excess POC VBG pO2 59.7 H Mixed VBG HCO3 29.3 H Anion Gap 6 L Random Glucose 109 H Calcium 8.4 L AST 14 L Urine Urobilinogen Ur Leukocyte Esterase 10/26/18 10/26/18 14:55 19:02 WBC RBC RDW Absolute Neuts (auto) ABG pCO2 at Pt Temp 48.0 H ABG HCO3 29.4 H ABG Base Excess 4.4 H POC VBG pO2 Mixed VBG HCO3 Anion Gap Random Glucose Calcium AST Urine Urobilinogen 2.0 H Ur Leukocyte Esterase 2+ H ASSESSMENT AND PLAN: 1. COPD Exacerbation and Anasarca - The precipitating factor for [employer] exacerbation is unclear. She has been tapering steroids (prednisone 10 mg) - may possibly need higher dose of steroids??. Will consult Pulmonary for expert advice. Continue Duoneb, symbicort and Oxygen therapy (1-2 L). No acute abnormality on CXR, no PE on CTA. Etiology of anasarca is unclear, but may be multifactorial. She has gained 6 - 9 kg from Aug 2018 to now. ECHO from 09/17/18 is reported as normal. High pCO2 directly stimulating renal tubular salt reabsorption may be the primary culprit , exacerbated by steroids and ?procardia. Will stop HCTZ, give effective dose of IV lasix, stop procardia and send urine for protein assessment (since the basic urinalysis may be only able to pick up driver albuminuria). Get daily standing weight and restrict dietary salt intake. 2. Tobacco Use We will provide patient all the necessary assistance to facilitate smoking cessation and prescribe Nicotine patch. 3. Obesity - Will provide patient all the necessary assistance, counseling and positive reinforcement to facilitate weight loss. Consult junior web designer. 4. DVT prophylaxis - Lovenox 40 mg SQ q 24 hours. 5. Advance directives - Full code
[2018-10-26] MEDS ORDERED: FUROSEMIDE 40 MG/4 ML INJECTABLE VIAL ONE (20:06)
[2018-10-26] MEDS ORDERED: MAG HYDROX/AL HYDROX/SIMETH 30 ML UNIT-DOSE CUP PO PRN (20:30)
[2018-10-26] MEDS ORDERED: MELATONIN 5 MG TABLETS PO PRN (20:30)
[2018-10-26] MEDS ORDERED: ALBUTEROL SO4 0.083% IH SOL 2.5 MG/3 ML VIAL.NEB. NEB PRN (20:30)
[2018-10-26] MEDS ORDERED: CEFTRIAXONE 1 GM in DEXTROSE 5%-WATER - 50 ML IVPB SCH (20:45)
[2018-10-26] MEDS ORDERED: PATIENT'S OWN MEDICATION (NON-FORMULARY) (Simvastatin [Simvastatin] 20 MG) PO SCH (22:00)
[2018-10-26] MEDS ORDERED: ALBUTEROL SO4 2.5/IPRATROPIUM 0.5 INH SOL 3 ML VIAL.NEB. NEB SCH (22:00)
[2018-10-26] MEDS ORDERED: MIRTAZAPINE 30 MG TABLET (FP) PO SCH (22:00)
[2018-10-26] MEDS: SERTRALINE HCL 50 MG TABLET (FP) PO SCH (22:27)
[2018-10-26] MEDS: BUDESONIDE/FORMETEROL FUMARATE 160/4.5 mcg INHALER IH SCH (22:27)
[2018-10-26] MEDS: THIAMINE HCL 100 MG TABLET (FP) PO SCH (22:27)
[2018-10-26] MEDS: SODIUM CHLORIDE NASAL SPRAY 44 ML BOTTLE NS SCH (22:28)
[2018-10-26] MEDS: LISINOPRIL 20 MG TABLET (FP) PO SCH (22:28)
[2018-10-26] MEDS ORDERED: CEFTRIAXONE 1 GM/50 ML BAG ONE (22:28)
[2018-10-26] MEDS: ATORVASTATIN CA 10 MG TABLET (FP) PO SCH (22:28)
[2018-10-26] MEDS: traZODone HCL 100 MG TABLET (FP) PO SCH (22:28)
[2018-10-26] MEDS: LABETALOL HCL 100 MG TABLET (FP) PO SCH (22:36)
[2018-10-26] MEDS: NICOTINE 21 MG/24 HOURS TOPICAL PATCH TD SCH (22:37)
[2018-10-27] MEDS: NYSTATIN 500,000 UNITS/5 ML SUSPENSION PO SCH ×5 (02:21→23:02)
[2018-10-27 03:10] LABS: COCAINE, UR NEGATIVE ng/ml (CUTOFF=300); METHADONE, UR NEGATIVE ng/ml (CUTOFF=300); OPIATES, URI NEGATIVE ng/ml (CUTOFF=300); PHENCYCLIDINE,URINE NEGATIVE ng/ml (CUTOFF=25); URINE AMPHETAMINES NEGATIVE ng/ml (CUTOFF=500); URINE BARBITURATES NEGATIVE ng/ml (CUTOFF=200); URINE BENZODIAZEPINES NEGATIVE ng/ml (CUTOFF=200)
[2018-10-27] MEDS: ALBUTEROL SO4 0.083% IH SOL 2.5 MG/3 ML VIAL.NEB. NEB PRN (03:14)
[2018-10-27] MEDS: HEPARIN NA (PORCINE) 5,000 UNITS/ML 1ML VIAL SQ SCH ×3 (05:29→23:02)
[2018-10-27] MEDS ORDERED: POLYETHYLENE GLYCOL 3350 119 GM BTL PO ONE (08:18)
--- NOTE | 2018-10-27 08:30 | PN ---
Physical Exam: SUBJECTIVE: Patient seen and examined at bedside this morning. She endorses diffuse leg, and abdominal pain and swelling over the past week. She does not endorse any inciting, palliative or provocative features. She denies subjective fevers, or chills. OBJECTIVE: Vital Signs Period Temp Pulse Resp BP Sys/Weiner Pulse Ox Last 24 Hr 97.8 F-98.9 F 92-109 18-24 102-128/64-79 99-100 GENERAL: Awake, alert, and fully oriented. Patient is in no acute distress. HEAD: Normocephalic, atraumatic. EYES: Pupils equal, round and reactive to light, extraocular movements intact, sclera anicteric. EARS, NOSE, THROAT: Oropharynx clear without exudates. Moist mucous membranes. No stridor auscultated NECK: Normal range of motion, supple without lymphadenopathy. LUNGS: Good inspiratory effort, poor air entry bilaterally. Faint bibasilar crackles without wheezing auscultated. No accessory muscle use. HEART: Regular rate and rhythm, normal S1 and S2 without murmur, rub or gallop. ABDOMEN: Obese. Soft, nontender to palpaiton. Not distended. Normoactive bowel sounds X4 quadrants. No guarding, no rebound tendernes. No hepatomegaly palpated or percussed. MUSCULOSKELETAL: Normal range of motion at all joints. Strength 5/5 B/L upper and lower extremities. UPPER EXTREMITIES: 2+ radial pulses bilaterally, warm, well-perfused. LOWER EXTREMITIES: 2+ dorsalis pedis pulses bilaterally, warm, well-perfused. No calf tenderness bilaterally. Right lower extremity 2+ pitting edema, left lower extremity 1+ pitting edema. NEUROLOGICAL: Cranial nerves II-XII intact. Normal speech, and gait. PSYCHIATRIC: Cooperative, anxious. SKIN: Warm, dry Laboratory Results - last 24 hr 10/26/18 10/26/18 10/26/18 13:30 13:30 13:30 WBC 14.6 H RBC 3.57 L Hgb 11.6 Hct 34.1 MCV 95.5 MCH 32.3 MCHC 33.9 RDW 16.8 H Plt Count 214 D MPV 7.7 Absolute Neuts (auto) 9.4 H Neutrophils % 64.4 Lymphocytes % 25.8 Monocytes % 8.2 Eosinophils % 0.5 Basophils % 1.1 Nucleated RBC % 0 Anticoagulation Therapy Puncture Site ABG pH ABG pCO2 at Pt Temp ABG pO2 at Pt Temp ABG HCO3 ABG O2 Sat (Measured) ABG O2 Content ABG Base Excess Chris Test VBG pH POC VBG pCO2 POC VBG pO2 Mixed VBG HCO3 Carboxyhemoglobin Methemoglobin O2 Delivery Device Oxygen Flow Rate Vent Mode Vent Rate Mechanical Rate Pressure Support Vent Sodium 141 Potassium 3.7 Chloride 104 Carbon Dioxide 32 Anion Gap 6 L BUN 18 Creatinine 0.6 Creat Clearance w eGFR > 60 Random Glucose 109 H Calcium 8.4 L Total Bilirubin 0.2 AST 14 L ALT 40 Alkaline Phosphatase 92 Troponin I B-Natriuretic Peptide Total Protein 6.6 Albumin 3.4 TSH Urine Color Urine Appearance Urine pH Ur Specific [place] Urine Protein Urine Glucose (UA) Urine Ketones Urine Blood Urine Nitrite Urine Bilirubin Urine Urobilinogen Ur Leukocyte Esterase Urine WBC (Auto) Urine RBC (Auto) Ur Epithelial Cells Urine Mucus Opiates Screen Methadone Screen Barbiturate Screen Phencyclidine Screen Ur Amphetamines Screen MDMA (Ecstasy) Screen Benzodiazepines Screen Cocaine Screen U Marijuana (THC) Screen Influenza A (Rapid) Negative Influenza B (Rapid) Negative 10/26/18 10/26/18 10/26/18 13:30 13:30 13:30 WBC RBC Hgb Hct MCV MCH MCHC RDW Plt Count MPV Absolute Neuts (auto) Neutrophils % Lymphocytes % Monocytes % Eosinophils % Basophils % Nucleated RBC % Anticoagulation Therapy Puncture Site ABG pH ABG pCO2 at Pt Temp ABG pO2 at Pt Temp ABG HCO3 ABG O2 Sat (Measured) ABG O2 Content ABG Base Excess Chris Test VBG pH 7.41 POC VBG pCO2 46.9 POC VBG pO2 59.7 H Mixed VBG HCO3 29.3 H Carboxyhemoglobin Methemoglobin O2 Delivery Device Oxygen Flow Rate Vent Mode Vent Rate Mechanical Rate Pressure Support Vent Sodium Potassium Chloride Carbon Dioxide Anion Gap BUN Creatinine Creat Clearance w eGFR Random Glucose Calcium Total Bilirubin AST ALT Alkaline Phosphatase Troponin I < 0.02 B-Natriuretic Peptide 56.7 Total Protein Albumin TSH 0.83 Urine Color Urine Appearance Urine pH Ur Specific [place] Urine Protein Urine Glucose (UA) Urine Ketones Urine Blood Urine Nitrite Urine Bilirubin Urine Urobilinogen Ur Leukocyte Esterase Urine WBC (Auto) Urine RBC (Auto) Ur Epithelial Cells Urine Mucus Opiates Screen Methadone Screen Barbiturate Screen Phencyclidine Screen Ur Amphetamines Screen MDMA (Ecstasy) Screen Benzodiazepines Screen Cocaine Screen U Marijuana (THC) Screen Influenza A (Rapid) Influenza B (Rapid) 10/26/18 10/26/18 10/26/18 14:55 19:02 23:00 WBC RBC Hgb Hct MCV MCH MCHC RDW Plt Count MPV Absolute Neuts (auto) Neutrophils % Lymphocytes % Monocytes % Eosinophils % Basophils % Nucleated RBC % Anticoagulation Therapy No Result Required. Puncture Site Right radial ABG pH 7.40 ABG pCO2 at Pt Temp 48.0 H ABG pO2 at Pt Temp 91.3 D ABG HCO3 29.4 H ABG O2 Sat (Measured) 96.8 ABG O2 Content 16.1 ABG Base Excess 4.4 H Chris Test Positive VBG pH POC VBG pCO2 POC VBG pO2 Mixed VBG HCO3 Carboxyhemoglobin 0.8 Methemoglobin 0.5 O2 Delivery Device Nasal cannula Oxygen Flow Rate 3% Vent Mode No Result Required. Vent Rate No Result Required. Mechanical Rate No Result Required. Pressure Support Vent No Result Required. Sodium Potassium Chloride Carbon Dioxide Anion Gap BUN Creatinine Creat Clearance w eGFR Random Glucose Calcium Total Bilirubin AST ALT Alkaline Phosphatase Troponin I B-Natriuretic Peptide Total Protein Albumin TSH Urine Color Yellow Urine Appearance Clear Urine pH 5.0 D Ur Specific [place] 1.023 Urine Protein Negative Urine Glucose (UA) Negative Urine Ketones Negative Urine Blood Negative Urine Nitrite Negative Urine Bilirubin Negative Urine Urobilinogen 2.0 H Ur Leukocyte Esterase 2+ H Urine WBC (Auto) 10 Urine RBC (Auto) 1 Ur Epithelial Cells Rare Urine Mucus Rare Opiates Screen Negative Methadone Screen Negative Barbiturate Screen Negative Phencyclidine Screen Negative Ur Amphetamines Screen Negative MDMA (Ecstasy) Screen Negative Benzodiazepines Screen Negative Cocaine Screen Negative U Marijuana (THC) Screen Negative Influenza A (Rapid) Influenza B (Rapid) Active Medications Generic Name Dose Route Start Last Admin Trade Name Freq PRN Reason Stop Dose Admin Al Hydroxide/Mg Hydroxide 30 ml 10/26/18 20:30 Mylanta Oral Suspension - PO Q12H PRN DYSPEPSIA Albuterol Sulfate 1 amp 10/26/18 20:41 10/27/18 03:14 Ventolin 0.083% Nebulizer Soln - NEB 1 amp Q6H PRN Administration WHEEZING Albuterol/Ipratropium 1 amp 10/27/18 08:00 Duoneb - NEB RQID BETH Atorvastatin Calcium 10 mg 10/26/18 22:00 10/26/18 22:28 Lipitor - PO 10 mg HS BETH Administration Budesonide/Formoterol Fumarate 1 puff 10/26/18 22:00 10/26/18 22:27 Symbicort 160/4.5mcg - IH 1 puff BID BETH Administration Heparin Sodium (Porcine) 5,000 unit 10/27/18 06:00 10/27/18 05:29 Heparin - SQ 5,000 unit TID [facility] Administration Ceftriaxone Sodium 1 gm/ 50 mls @ 100 mls/hr 10/26/18 20:45 10/26/18 22:37 Dextrose IVPB 100 mls/hr DAILY [facility] Administration Protocol Labetalol HCl 100 mg 10/26/18 22:00 10/26/18 22:36 Normodyne - PO 100 mg BID BETH Administration Lisinopril 20 mg 10/26/18 22:00 10/26/18 22:28 Prinivil PO 20 mg BID [facility] Administration Melatonin 5 mg 10/26/18 20:41 Melatonin PO HS PRN INSOMNIA Mirtazapine 30 mg 10/27/18 22:00 Remeron - PO HS [facility] Multivitamins/Minerals/Vitamin C 1 tab 10/27/18 10:00 Tab-A-Vit - PO DAILY [facility] Nicotine 21 mg 10/26/18 20:45 10/26/18 22:37 Nicoderm Patch - TD Not Given DAILY [facility] Nystatin 500,000 units 10/27/18 00:00 10/27/18 05:29 Nystatin Oral Suspension - PO 500,000 units Q6HPO [facility] Administration Prednisone 10 mg 10/27/18 10:00 Deltasone - PO 10/31/18 09:59 DAILY [facility] Sertraline HCl 50 mg 10/26/18 22:00 10/26/18 22:27 Zoloft - PO 50 mg DAILY [facility] Administration Sodium Chloride 2 spray 10/26/18 22:00 10/26/18 22:28 [place] Nasal [place] - NS 2 spray BID [facility] Administration Thiamine HCl 100 mg 10/26/18 22:00 10/26/18 22:27 Vitamin B1 - PO 100 mg HS [facility] Administration Tiotropium [place] 2 puff 10/27/18 10:00 Spiriva Respimat IH DAILY [facility] Trazodone HCl 100 mg 10/26/18 22:00 10/26/18 22:28 Desyrel - PO 100 mg HS [facility] Administration ASSESSMENT/PLAN: Patient is a 53 year old female with history of polysubstance abuse (alcohol, crack cocaine), anxiety, depression, asthma, COPD, hypertension, hyperlipidemia , presents from [facility] with complaint of generalized swelling, and shortness of breath. Acute on chronic hypoxic respiratory failure- secondary to asthma, COPD exacerbation -Prednisone 10mg PO today. Will continue steroid taper for 4 additional days. -DuoNebs 1 amp QID standing -Spiriva 2 puffs daily -Symbicort 160/ 4.5mcg 1 puffs IH BID -Albuterol nebulizer Q6H PRN -Currently saturating well on 2L nasal canula. Maintain oxygen saturation greater than 90% Anasarca -Fluid retention likely secondary to CHF -Patient received Lasix 20mg IV in ED. Follow diuresis - Anxiety -Remeron 30mg PO HS -Sertaline 50mg PO daily -Trazodone 100mg PO HS Leukocytosis -Likely secondary to steroid use. Patient currently afebrile. Post-Nasal drip -No stridor, no wheezing auscultated. -Saline nasal spray 2 spray NS BID, and as needed Oral thrush -Nystatin swish and swallow 500,000u PO Q6H History of polysubstane abuse (alcohol, crack cocaine) -Patient was recently in [facility] for rehab. -Counselled regarding importance of abstaining from alcohol, drugs -print binding worker evaluation Hypertension -Labetalol 100mg PO daily -Lisinopril 20mg PO BID Hyperlipidemia -Atorvastatin 10mg PO daily Nicotine dependence -Nicotine patch 21mg daily Insomnia -Melatonin 5mg PO HS FEN -No IV fluids indicated -Follow CMP -Sodium controlled diet Prophylaxis -Heparin 5000u subq TID Disposition -Continue observation in medical-surgical floor.
[2018-10-27 08:57] LABS: BASO % 1.2 % (0-2.0); EOS % 0.9 % (0-4.5); HEMATOCRIT 34.2 % (32.4-45.2); HEMOGLOBIN 11.5 GM/dL (10.7-15.3); LYMPH % 24.5 % (8-40); MCH 31.7 pg (25.7-33.7); MCHC 33.4 g/dl (32.0-36.0); MEAN CELL VOLUME 94.7 fl (80-96); MEAN PLT VOLUME 7.7 fl (7.5-11.1); MONO % 8.2 % (3.8-10.2); NEUT % 65.2 % (42.8-82.8); PLATELET COUNT 211 K/MM3 (134-434); RBC 3.62 M/mm3 (3.60-5.2); WHITE BLOOD COUNT 11.6 K/mm3 (4.0-10.0)
[2018-10-27] MEDS: ALBUTEROL SO4 2.5/IPRATROPIUM 0.5 INH SOL 3 ML VIAL.NEB. NEB SCH ×4 (09:16→20:50)
[2018-10-27 09:30] LABS: ANION GAP 5 MMOL/L (8-16); BLOOD UREA NITROGEN 29 mg/dL (7-18); CALCIUM 8.7 mg/dL (8.5-10.1); CHLORIDE 105 mmol/L (98-107); CO2 31 mmol/L (21-32); CREATININE 0.8 mg/dL (0.55-1.3); GLUCOSE,RANDOM 75 mg/dL (74-106); MAGNESIUM 2.5 mg/dL (1.8-2.4); PHOSPHOROUS 5.8 mg/dL (2.5-4.9); POTASSIUM 4.2 mmol/L (3.5-5.1); SODIUM 142 mmol/L (136-145)
[2018-10-27] MEDS ORDERED: PT OWN MED DRAWER 7, Y5N ONE ×3 (09:52→23:08)
[2018-10-27] MEDS: NICOTINE 21 MG/24 HOURS TOPICAL PATCH TD SCH (09:54)
[2018-10-27] MEDS: predniSONE 10 MG TABLET (UD) PO SCH (09:54)
[2018-10-27] MEDS: LABETALOL HCL 100 MG TABLET (FP) PO SCH ×2 (09:54→23:01)
[2018-10-27] MEDS: MULTIVITAMINS (DAILY MVI) TABLET (FP) PO SCH (09:54)
[2018-10-27] MEDS: SERTRALINE HCL 50 MG TABLET (FP) PO SCH (09:54)
[2018-10-27] MEDS: LISINOPRIL 20 MG TABLET (FP) PO SCH ×2 (09:54→23:02)
[2018-10-27] MEDS ORDERED: FOLIC PO SCH (10:00)
[2018-10-27] MEDS ORDERED: PATIENT'S OWN MEDICATION (NON-FORMULARY) (Aclidinium Bromide [Tudorza Pressair] 400 MCG) IH SCH (10:00)
[2018-10-27] MEDS ORDERED: DHA PO SCH (10:00)
[2018-10-27] MEDS ORDERED: MIRTAZAPINE 30 MG TABLET (FP) PO SCH (10:00)
[2018-10-27] MEDS ORDERED: [UNRECOGNIZED DRUG - OTHER] PO SCH (10:00)
[2018-10-27] MEDS ORDERED: PRENATAL PO SCH (10:00)
[2018-10-27] MEDS ORDERED: IRON FUM PO SCH (10:00)
[2018-10-27] MEDS: SODIUM CHLORIDE NASAL SPRAY 44 ML BOTTLE NS SCH ×2 (11:10→23:03)
[2018-10-27] MEDS: TIOTROPIUM BROMIDE 2.5 MCG (SPIRIVA) RESPIMAT INHALER IH SCH (11:10)
[2018-10-27] MEDS: BUDESONIDE/FORMETEROL FUMARATE 160/4.5 mcg INHALER IH SCH ×2 (13:12→23:01)
--- NOTE | 2018-10-27 13:45 | PN ---
Progress Note, Physician Chief Complaint: EVENTS AND NOTES REVIEWED PATIENT AWAKE IN MILD-MODERATE DISTRESS C/O LEG PAIN AND SWELLING - Current Medication List Current Medications: Active Medications Al Hydroxide/Mg Hydroxide (Mylanta Oral Suspension -) 30 ml PO Q12H PRN PRN Reason: DYSPEPSIA Albuterol Sulfate (Ventolin 0.083% Nebulizer Soln -) 1 amp NEB Q6H PRN PRN Reason: WHEEZING Last Admin: 10/27/18 03:14 Dose: 1 amp Albuterol/Ipratropium (Duoneb -) 1 amp NEB RQID [facility] Last Admin: 10/27/18 11:26 Dose: 1 amp Atorvastatin Calcium (Lipitor -) 10 mg PO HS [facility] Last Admin: 10/26/18 22:28 Dose: 10 mg Budesonide/Formoterol Fumarate (Symbicort 160/4.5mcg -) 1 puff IH BID [facility] Last Admin: 10/27/18 13:12 Dose: 1 puff Heparin Sodium (Porcine) (Heparin -) 5,000 unit SQ TID [facility] Last Admin: 10/27/18 13:27 Dose: 5,000 unit Labetalol HCl (Normodyne -) 100 mg PO BID [facility] Last Admin: 10/27/18 09:54 Dose: 100 mg Lisinopril (Prinivil) 20 mg PO BID [facility] Last Admin: 10/27/18 09:54 Dose: 20 mg Melatonin (Melatonin) 5 mg PO HS PRN PRN Reason: INSOMNIA Mirtazapine (Remeron -) 30 mg PO HS [facility] Multivitamins/Minerals/Vitamin C (Tab-A-Vit -) 1 tab PO DAILY [facility] Last Admin: 10/27/18 09:54 Dose: 1 tab Nicotine (Nicoderm Patch -) 21 mg TD DAILY [facility] Last Admin: 10/27/18 09:54 Dose: Not Given Nystatin (Nystatin Oral Suspension -) 500,000 units PO Q6HPO [facility] Last Admin: 10/27/18 13:11 Dose: 500,000 units Prednisone (Deltasone -) 10 mg PO DAILY [facility] Stop: 10/31/18 09:59 Last Admin: 10/27/18 09:54 Dose: 10 mg Sertraline HCl (Zoloft -) 50 mg PO DAILY [facility] Last Admin: 10/27/18 09:54 Dose: 50 mg Sodium Chloride ([place] Nasal [place] -) 2 spray NS BID [facility] Last Admin: 10/27/18 11:10 Dose: 2 spray Thiamine HCl (Vitamin B1 -) 100 mg PO [facility] Last Admin: 10/26/18 22:27 Dose: 100 mg Tiotropium [place] (Spiriva Respimat) 2 puff IH DAILY [facility] Last Admin: 10/27/18 11:10 Dose: 2 puff Trazodone HCl (Desyrel -) 100 mg PO [facility] Last Admin: 10/26/18 22:28 Dose: 100 mg - Objective Vital Signs: Vital Signs Temperature 97.2 F L 10/27/18 10:00 Pulse Rate 94 H 10/27/18 10:00 Respiratory Rate 20 10/27/18 10:00 Blood Pressure 123/80 10/27/18 10:00 O2 Sat by Pulse Oximetry (%) 100 10/26/18 23:32 Constitutional: Yes: Mild Distress Eyes: Yes: WNL HENT: Yes: WNL Neck: Yes: WNL Cardiovascular: Yes: WNL Respiratory: Yes: CTA Bilaterally, On Nasal O2 Gastrointestinal: Yes: WNL Genitourinary: Yes: WNL Musculoskeletal: Yes: Muscle Pain Extremities: Yes: WNL Edema: Yes Edema: LLE: 2+, RLE: 2+ Peripheral Pulses WNL: Yes Integumentary: Yes: WNL Wound/Incision: Yes: Clean/Dry Neurological: Yes: Other ...Motor Strength: LLE, RLE Psychiatric: Yes: Other Labs: CBC, BMP 10/27/18 07:50 10/27/18 07:50 Problem List - Problems (1) Anasarca Code(s): R60.1 - GENERALIZED EDEMA (2) COPD exacerbation Code(s): J44.1 - CHRONIC OBSTRUCTIVE PULMONARY DISEASE W (ACUTE) EXACERBATION (3) Alcohol use disorder, moderate, in early remission Code(s): F10.21 - ALCOHOL DEPENDENCE, IN REMISSION (4) Anxiety Code(s): F41.9 - ANXIETY DISORDER, UNSPECIFIED (5) Cocaine use disorder, moderate, in early remission Code(s): F14.21 - COCAINE DEPENDENCE, IN REMISSION (6) Depression Code(s): F32.9 - MAJOR DEPRESSIVE DISORDER, SINGLE EPISODE, UNSPECIFIED Qualifiers: Depression Type: unspecified Qualified Code(s): F32.9 - Major depressive disorder, single episode, unspecified (7) Hypertension Code(s): I10 - ESSENTIAL (PRIMARY) HYPERTENSION Qualifiers: Hypertension type: essential hypertension Qualified Code(s): I10 - Essential (primary) hypertension Assessment/Plan WORKUP FOR B/L LEG PAIN PREDNISONE INDUCED? LASIX IV DOPPLERS LEGS R/O DVT PAIN CONTROL AVOID NARCOTICS WITH SUBSTANCE ABUSE HX 02 SUPPORT PULM EVAL PT EVAL
--- NOTE | 2018-10-27 16:45 | EKG ---
Test Reason : Blood Pressure : / mmHG Vent. Rate : 104 BPM Atrial Rate : 104 BPM P-R Int : 124 ms QRS Dur : 072 ms QT Int : 342 ms P-R-T Axes : 070 069 059 degrees QTc Int : 449 ms SINUS TACHYCARDIA OTHERWISE NORMAL ECG WHEN COMPARED WITH ECG OF 16-SEP-2018 00:25, NO SIGNIFICANT CHANGE WAS FOUND Confirmed by Alla Holliday ([id number]) on 10/27/2018 4:44:50 PM Referred By: Confirmed By:Alla Holliday
[2018-10-27] MEDS: ACETAMINOPHEN 325 MG TABLET (FP) PO PRN (20:50)
[2018-10-27] MEDS ORDERED: traZODone HCL 50 MG TABLET (FP) ONE (21:03)
[2018-10-27] MEDS: ATORVASTATIN CA 10 MG TABLET (FP) PO SCH (23:01)
[2018-10-27] MEDS: traZODone HCL 100 MG TABLET (FP) PO SCH (23:01)
[2018-10-27] MEDS: MELATONIN 5 MG TABLETS PO PRN (23:01)
[2018-10-27] MEDS: MIRTAZAPINE 15 MG TABLET (FP) PO SCH (23:02)
[2018-10-27] MEDS: THIAMINE HCL 100 MG TABLET (FP) PO SCH (23:02)
[2018-10-28] MEDS: ALBUTEROL SO4 0.083% IH SOL 2.5 MG/3 ML VIAL.NEB. NEB PRN (03:45)
[2018-10-28] MEDS: HEPARIN NA (PORCINE) 5,000 UNITS/ML 1ML VIAL SQ SCH ×3 (05:27→23:14)
[2018-10-28] MEDS: NYSTATIN 500,000 UNITS/5 ML SUSPENSION PO SCH ×4 (05:28→23:13)
[2018-10-28] MEDS: ALBUTEROL SO4 2.5/IPRATROPIUM 0.5 INH SOL 3 ML VIAL.NEB. NEB SCH ×4 (09:16→20:45)
[2018-10-28] MEDS ORDERED: PT OWN MED DRAWER 7, Y5N ONE (09:54)
[2018-10-28] MEDS: LABETALOL HCL 100 MG TABLET (FP) PO SCH ×2 (10:01→23:13)
[2018-10-28] MEDS: predniSONE 10 MG TABLET (UD) PO SCH (10:01)
[2018-10-28] MEDS: FUROSEMIDE 40 MG/4 ML INJECTABLE VIAL IVPUSH SCH (10:01)
[2018-10-28] MEDS: MULTIVITAMINS (DAILY MVI) TABLET (FP) PO SCH (10:01)
[2018-10-28] MEDS: NICOTINE 21 MG/24 HOURS TOPICAL PATCH TD SCH (10:01)
[2018-10-28] MEDS: SERTRALINE HCL 50 MG TABLET (FP) PO SCH (10:01)
[2018-10-28] MEDS: SODIUM CHLORIDE NASAL SPRAY 44 ML BOTTLE NS SCH ×2 (10:02→23:14)
[2018-10-28] MEDS: TIOTROPIUM BROMIDE 2.5 MCG (SPIRIVA) RESPIMAT INHALER IH SCH (10:02)
[2018-10-28] MEDS: BUDESONIDE/FORMETEROL FUMARATE 160/4.5 mcg INHALER IH SCH ×2 (10:02→23:13)
[2018-10-28] MEDS: LISINOPRIL 20 MG TABLET (FP) PO SCH ×2 (10:03→23:13)
--- NOTE | 2018-10-28 10:40 | PN ---
Progress Note, Physician Chief Complaint: AWAKE ALERT FEELING BETTER - Current Medication List Current Medications: Active Medications Acetaminophen (Tylenol -) 650 mg PO Q6H PRN PRN Reason: FEVER Last Admin: 10/27/18 20:50 Dose: 650 mg Al Hydroxide/Mg Hydroxide (Mylanta Oral Suspension -) 30 ml PO Q12H PRN PRN Reason: DYSPEPSIA Albuterol Sulfate (Ventolin 0.083% Nebulizer Soln -) 1 amp NEB Q6H PRN PRN Reason: WHEEZING Last Admin: 10/28/18 03:45 Dose: 1 amp Albuterol/Ipratropium (Duoneb -) 1 amp NEB RQID [facility] Last Admin: 10/28/18 09:16 Dose: 1 amp Atorvastatin Calcium (Lipitor -) 10 mg PO HS [facility] Last Admin: 10/27/18 23:01 Dose: 10 mg Budesonide/Formoterol Fumarate (Symbicort 160/4.5mcg -) 1 puff IH BID [facility] Last Admin: 10/28/18 10:02 Dose: 1 puff Furosemide (Lasix Injection -) 40 mg IVPUSH DAILY [facility] Last Admin: 10/28/18 10:01 Dose: 40 mg Heparin Sodium (Porcine) (Heparin -) 5,000 unit SQ TID [facility] Last Admin: 10/28/18 05:27 Dose: 5,000 unit Labetalol HCl (Normodyne -) 100 mg PO BID [facility] Last Admin: 10/28/18 10:01 Dose: 100 mg Lisinopril (Prinivil) 20 mg PO BID [facility] Last Admin: 10/28/18 10:03 Dose: 20 mg Melatonin (Melatonin) 5 mg PO HS PRN PRN Reason: INSOMNIA Last Admin: 10/27/18 23:01 Dose: 5 mg Mirtazapine (Remeron -) 30 mg PO HS [facility] Last Admin: 10/27/18 23:02 Dose: 30 mg Multivitamins/Minerals/Vitamin C (Tab-A-Vit -) 1 tab PO DAILY [facility] Last Admin: 10/28/18 10:01 Dose: 1 tab Nicotine (Nicoderm Patch -) 21 mg TD DAILY [facility] Last Admin: 10/28/18 10:01 Dose: Not Given Nystatin (Nystatin Oral Suspension -) 500,000 units PO Q6HPO [facility] Last Admin: 10/28/18 05:28 Dose: 500,000 units Prednisone (Deltasone -) 10 mg PO DAILY [facility] Stop: 10/31/18 09:59 Last Admin: 10/28/18 10:01 Dose: 10 mg Sertraline HCl (Zoloft -) 50 mg PO DAILY [facility] Last Admin: 10/28/18 10:01 Dose: 50 mg Sodium Chloride ([place] Nasal [place] -) 2 spray NS BID [facility] Last Admin: 10/28/18 10:02 Dose: 2 spray Thiamine HCl (Vitamin B1 -) 100 mg PO [facility] Last Admin: 10/27/18 23:02 Dose: 100 mg Tiotropium [place] (Spiriva Respimat) 2 puff IH DAILY [facility] Last Admin: 10/28/18 10:02 Dose: 2 puff Trazodone HCl (Desyrel -) 100 mg PO [facility] Last Admin: 10/27/18 23:01 Dose: 100 mg - Objective Vital Signs: Vital Signs Temperature 97.5 F L 10/28/18 09:05 Pulse Rate 102 H 10/28/18 09:05 Respiratory Rate 22 H 10/28/18 09:05 Blood Pressure 110/52 L 10/28/18 09:05 O2 Sat by Pulse Oximetry (%) 100 10/27/18 21:00 Constitutional: Yes: Mild Distress Eyes: Yes: WNL HENT: Yes: WNL Neck: Yes: WNL Cardiovascular: Yes: Regular Rate and Rhythm Respiratory: Yes: Diminished Gastrointestinal: Yes: Soft Genitourinary: Yes: WNL Musculoskeletal: Yes: Muscle Weakness Extremities: Yes: WNL Edema: Yes Edema: LLE: 1+, RLE: 1+ Peripheral Pulses WNL: Yes Integumentary: Yes: WNL Wound/Incision: Yes: Clean/Dry Neurological: Yes: WNL ...Motor Strength: WNL Psychiatric: Yes: WNL Labs: CBC, BMP 10/27/18 07:50 10/27/18 07:50 Problem List - Problems (1) Anasarca Code(s): R60.1 - GENERALIZED EDEMA (2) COPD exacerbation Code(s): J44.1 - CHRONIC OBSTRUCTIVE PULMONARY DISEASE W (ACUTE) EXACERBATION (3) Alcohol use disorder, moderate, in early remission Code(s): F10.21 - ALCOHOL DEPENDENCE, IN REMISSION (4) Anxiety Code(s): F41.9 - ANXIETY DISORDER, UNSPECIFIED (5) Cocaine use disorder, moderate, in early remission Code(s): F14.21 - COCAINE DEPENDENCE, IN REMISSION (6) Depression Code(s): F32.9 - MAJOR DEPRESSIVE DISORDER, SINGLE EPISODE, UNSPECIFIED Qualifiers: Depression Type: unspecified Qualified Code(s): F32.9 - Major depressive disorder, single episode, unspecified (7) Hypertension Code(s): I10 - ESSENTIAL (PRIMARY) HYPERTENSION Qualifiers: Hypertension type: essential hypertension Qualified Code(s): I10 - Essential (primary) hypertension Assessment/Plan WORKUP FOR B/L LEG PAIN PREDNISONE INDUCED? LASIX IV CONTINUE DOPPLERS LEGS R/O DVT NEGATIVE PAIN CONTROL AVOID NARCOTICS WITH SUBSTANCE ABUSE HX 02 SUPPORT PULM EVAL PT EVAL LOW SALT DIET
--- NOTE | 2018-10-28 11:40 | CON.PULM ---
Consult Consult Specialty:: PULM/CCM Referred by:: SHANIKA Reason for Consultation:: SOB - History of Present Illness Chief Complaint: SOB / leg swelling History of Present Illness: 53 F, well known to me from previous admissions. Admitted via the ER due to worsening shortness of breath and increasing generalized edema especially in the LE x 1 week. No travel history or sick contacts. Reports increasing orthopnea. No fever or chills. No night sweats or hemoptysis. CTA: no PE/ emphysema / JERONIMO scarring and traction bronchiectasis - History Source History Provided By: Patient Limitations to Obtaining History: No Limitations - Past Medical History Cardio/Vascular: Yes: HTN Pulmonary: Yes: Bronchitis, COPD, O2 Dependent, Pneumonia. No: Pulmonary Embolus, Pulmonary Fibrosis, Sleep Apnea ...: No - Alcohol/Substance Use Hx Alcohol Use: Yes - Smoking History Smoking history: Former smoker Have you smoked in the past 12 months: Yes Aproximately how many cigarettes per day: 5 If you are a former smoker, when did you quit?: 10/05/18 "35 days ago" Home Medications - Allergies Allergies/Adverse Reactions: Allergies Allergy/AdvReac Type Severity Reaction Status Date / Time No Known Allergies Allergy Verified 10/26/18 12:31 - Home Medications Home Medications: Ambulatory Orders Acetaminophen [Tylenol] 650 mg PO ASDIR 10/05/18 Albuterol 0.083% Nebulizer Jyoti [Ventolin 0.083% Nebulizer Soln -] 1 neb NEB QID 10/05/18 Albuterol 2.5/Ipratropium 0.5 [Duoneb -] 1 neb NEB Q4H 10/05/18 Budesonide/Formeterol Fumarate [SYMBICORT 160/4.5mcg -] 1 inh PO BID 10/05/18 Hydrochlorothiazide 12.5 mg PO DAILY 10/05/18 Labetalol HCl [Normodyne -] 100 mg PO BID 10/05/18 Mag Hydrox/Al Hydrox/Simeth [Mylanta Oral Suspension -] 1 dose PO ASDIR Melatonin 5 mg PO DAILY 10/05/18 Mirtazapine [Remeron -] 30 mg PO DAILY 10/05/18 Nifedipine [Procardia Xl] 30 mg PO DAILY 10/05/18 95/Iron Fum/Folic/Dha [ + Dha Combo Pack] 1 each PO DAILY 10/05 Sertraline HCl [Zoloft -] 50 mg PO DAILY 10/05/18 Thiamine HCl [B-1] 100 mg PO HS 10/05/18 traZODone HCL [Trazodone HCl] 100 mg PO ASDIR 10/05/18 Albuterol Sulfate Inhaler - [Ventolin HFA Inhaler -] 2 puff IH Q4H PRN 10/08/18 Simvastatin 20 mg PO HS 10/08/18 Aclidinium [place] [Tudorza Pressair] 400 mcg IH DAILY 10/12/18 Budesonide/Formeterol Fumarate [SYMBICORT 160/4.5mcg -] 2 puff IH BID inhaler 10/12/18 Nicotine Patch [Nicoderm Patch -] 21 mg TD DAILY patch 10/12/18 Nystatin Oral Suspension - [Nystatin Oral Susp 333049 Units/5 ML -] 500,000 units PO Q6HPO cup 10/12/18 Ranitidine [Zantac -] 150 mg PO BID tablet 10/12/18 Sodium Chloride Nasal [place] [[place] Nasal [place] -] 2 spray NS BID spray Family Disease History - Family Disease History Family Disease History: Heart Disease: Father (HTN, ), Mother Review of Systems - Review of Systems Constitutional: reports: Malaise, Weakness. denies: Chills, Fever, Night Sweats , Unintentional Wgt. Loss Eyes: reports: No Symptoms HENT: reports: No Symptoms Neck: reports: No Symptoms Cardiovascular: reports: Edema, Shortness of Breath. denies: Chest Pain, Palpitations Respiratory: reports: Cough, Orthopnea, SOB, SOB on Exertion, Wheezing. denies : Hemoptysis, Snoring Gastrointestinal: reports: No Symptoms Genitourinary: reports: No Symptoms Breasts: reports: No Symptoms Reported Musculoskeletal: reports: No Symptoms Integumentary: reports: No Symptoms Neurological: reports: No Symptoms Endocrine: reports: No Symptoms Hematology/Lymphatic: reports: No Symptoms Psychiatric: reports: No Symptoms Physical Exam Vital Sings: Vital Signs Temperature 97.5 F L 10/28/18 09:05 Pulse Rate 102 H 10/28/18 09:05 Respiratory Rate 22 H 10/28/18 09:05 Blood Pressure 110/52 L 10/28/18 09:05 O2 Sat by Pulse Oximetry (%) 100 10/27/18 21:00 Constitutional: Yes: No Distress, Calm Eyes: Yes: Conjunctiva Clear, EOM Intact HENT: Yes: Atraumatic, Normocephalic Neck: Yes: Supple, Trachea Midline Cardiovascular: Yes: Regular Rate and Rhythm Respiratory: Yes: Cough, Diminished, On Nasal O2, Orthopnea, Rales, Rhonchi, SOB , SOB on Exertion, Tachypnea. No: Accessory Muscle Use, Stridor, Wheezes ...Inspection: Yes: WNL ...Clubbing: No Gastrointestinal: Yes: Normal Bowel Sounds, Soft, Abdomen, Obese Renal/: Yes: WNL Musculoskeletal: Yes: WNL Extremities: Yes: WNL Edema: Yes Peripheral Pulses WNL: Yes Integumentary: Yes: WNL Neurological: Yes: WNL, Alert, Oriented ...Motor Strength: WNL Psychiatric: Yes: WNL, Alert, Oriented Labs: CBC, BMP 10/27/18 07:50 10/27/18 07:50 ABG Results ABG pH 7.40 (7.35-7.45) 10/26/18 19:02 ABG pCO2 at Pt Temp 48.0 mmHg (35-45) H 10/26/18 19:02 ABG pO2 at Pt Temp 91.3 mmHg (80-100) D 10/26/18 19:02 ABG HCO3 29.4 meq/L (22-26) H 10/26/18 19:02 ABG O2 Sat (Measured) 96.8 % (90-98.9) 10/26/18 19:02 ABG O2 Content 16.1 % vol (15-22) 10/26/18 19:02 ABG Base Excess 4.4 meq/l (-2-2) H 10/26/18 19:02 Imaging - Results Chest X-ray: Report Reviewed, Image Reviewed Cat Scan: Report Reviewed, Image Reviewed Problem List - Problems (1) Bronchiectasis Code(s): J47.9 - BRONCHIECTASIS, UNCOMPLICATED (2) Emphysema of lung Code(s): J43.9 - EMPHYSEMA, UNSPECIFIED (3) Anasarca Code(s): R60.1 - GENERALIZED EDEMA (4) SOB (shortness of breath) Code(s): R06.02 - SHORTNESS OF BREATH (5) Anxiety Code(s): F41.9 - ANXIETY DISORDER, UNSPECIFIED (6) Nicotine dependence Code(s): F17.200 - NICOTINE DEPENDENCE, UNSPECIFIED, UNCOMPLICATED (7) COPD (chronic obstructive pulmonary disease) Code(s): J44.9 - CHRONIC OBSTRUCTIVE PULMONARY DISEASE, UNSPECIFIED Qualifiers: COPD type: unspecified COPD Qualified Code(s): J44.9 - Chronic obstructive pulmonary disease, unspecified (8) Hypercholesterolemia Code(s): E78.00 - PURE HYPERCHOLESTEROLEMIA, UNSPECIFIED (9) Hypertension Code(s): I10 - ESSENTIAL (PRIMARY) HYPERTENSION Qualifiers: Hypertension type: essential hypertension Qualified Code(s): I10 - Essential (primary) hypertension Assessment/Plan Would monitor off ABX for now Monitor off Systemic steroids BD TX PRN Symbicort BID O2 No smoking Lasix Daily weights Ideally avoid both OMA and LAMA Will follow Thank you. Dr Carrera
[2018-10-28] MEDS: THIAMINE HCL 100 MG TABLET (FP) PO SCH (23:12)
[2018-10-28] MEDS: MELATONIN 5 MG TABLETS PO PRN (23:12)
[2018-10-28] MEDS: ATORVASTATIN CA 10 MG TABLET (FP) PO SCH (23:13)
[2018-10-28] MEDS: MIRTAZAPINE 15 MG TABLET (FP) PO SCH (23:13)
[2018-10-28] MEDS: traZODone HCL 100 MG TABLET (FP) PO SCH (23:13)
[2018-10-29] MEDS: NYSTATIN 500,000 UNITS/5 ML SUSPENSION PO SCH ×3 (05:44→18:19)
[2018-10-29] MEDS: HEPARIN NA (PORCINE) 5,000 UNITS/ML 1ML VIAL SQ SCH ×3 (05:44→21:42)
[2018-10-29] MEDS: ALBUTEROL SO4 2.5/IPRATROPIUM 0.5 INH SOL 3 ML VIAL.NEB. NEB SCH (07:25)
[2018-10-29] MEDS ORDERED: PT OWN MED DRAWER 7, Y5N ONE (09:23)
[2018-10-29] MEDS: SERTRALINE HCL 50 MG TABLET (FP) PO SCH (09:25)
[2018-10-29] MEDS: predniSONE 10 MG TABLET (UD) PO SCH (09:25)
[2018-10-29] MEDS: MULTIVITAMINS (DAILY MVI) TABLET (FP) PO SCH (09:25)
[2018-10-29] MEDS: NICOTINE 21 MG/24 HOURS TOPICAL PATCH TD SCH (09:25)
[2018-10-29] MEDS: BUDESONIDE/FORMETEROL FUMARATE 160/4.5 mcg INHALER IH SCH ×2 (09:27→21:44)
[2018-10-29] MEDS: TIOTROPIUM BROMIDE 2.5 MCG (SPIRIVA) RESPIMAT INHALER IH SCH (09:28)
[2018-10-29] MEDS: SODIUM CHLORIDE NASAL SPRAY 44 ML BOTTLE NS SCH ×2 (09:28→21:44)
--- NOTE | 2018-10-29 09:52 | PN ---
Progress Note, Physician Chief Complaint: COPD exacerbation Anasarca History of Present Illness: Previous notes and events reviewed awake and alert NAD sts not feeling as SOB and the swelling is improving afebrile, wbc 11.6 - Current Medication List Current Medications: Active Medications Acetaminophen (Tylenol -) 650 mg PO Q6H PRN PRN Reason: FEVER Last Admin: 10/27/18 20:50 Dose: 650 mg Al Hydroxide/Mg Hydroxide (Mylanta Oral Suspension -) 30 ml PO Q12H PRN PRN Reason: DYSPEPSIA Albuterol Sulfate (Ventolin 0.083% Nebulizer Soln -) 1 amp NEB Q6H PRN PRN Reason: WHEEZING Last Admin: 10/28/18 03:45 Dose: 1 amp Albuterol/Ipratropium (Duoneb -) 1 amp NEB RQID [facility] Last Admin: 10/29/18 07:25 Dose: 1 amp Atorvastatin Calcium (Lipitor -) 10 mg PO HS [facility] Last Admin: 10/28/18 23:13 Dose: 10 mg Budesonide/Formoterol Fumarate (Symbicort 160/4.5mcg -) 1 puff IH BID [facility] Last Admin: 10/29/18 09:27 Dose: 1 puff Furosemide (Lasix Injection -) 40 mg IVPUSH DAILY [facility] Last Admin: 10/28/18 10:01 Dose: 40 mg Heparin Sodium (Porcine) (Heparin -) 5,000 unit SQ TID [facility] Last Admin: 10/29/18 05:44 Dose: 5,000 unit Labetalol HCl (Normodyne -) 100 mg PO BID [facility] Last Admin: 10/28/18 23:13 Dose: 100 mg Lisinopril (Prinivil) 20 mg PO BID [facility] Last Admin: 10/28/18 23:13 Dose: 20 mg Melatonin (Melatonin) 5 mg PO HS PRN PRN Reason: INSOMNIA Last Admin: 10/28/18 23:12 Dose: 5 mg Mirtazapine (Remeron -) 30 mg PO HS [facility] Last Admin: 10/28/18 23:13 Dose: 30 mg Multivitamins/Minerals/Vitamin C (Tab-A-Vit -) 1 tab PO DAILY [facility] Last Admin: 10/29/18 09:25 Dose: 1 tab Nicotine (Nicoderm Patch -) 21 mg TD DAILY [facility] Last Admin: 10/29/18 09:25 Dose: 21 mg Nystatin (Nystatin Oral Suspension -) 500,000 units PO Q6HPO [facility] Last Admin: 10/29/18 05:44 Dose: 500,000 units Prednisone (Deltasone -) 10 mg PO DAILY [facility] Stop: 10/31/18 09:59 Last Admin: 10/29/18 09:25 Dose: 10 mg Sertraline HCl (Zoloft -) 50 mg PO DAILY [facility] Last Admin: 10/29/18 09:25 Dose: 50 mg Sodium Chloride ([place] Nasal [place] -) 2 spray NS BID [facility] Last Admin: 10/29/18 09:28 Dose: 2 spray Thiamine HCl (Vitamin B1 -) 100 mg PO HS [facility] Last Admin: 10/28/18 23:12 Dose: 100 mg Tiotropium [place] (Spiriva Respimat) 2 puff IH DAILY [facility] Last Admin: 10/29/18 09:28 Dose: 2 puff Trazodone HCl (Desyrel -) 100 mg PO HS [facility] Last Admin: 10/28/18 23:13 Dose: 100 mg - Objective Vital Signs: Vital Signs Temperature 98.0 F 10/29/18 05:00 Pulse Rate 90 10/29/18 05:00 Respiratory Rate 20 10/29/18 05:00 Blood Pressure 118/69 10/29/18 05:00 O2 Sat by Pulse Oximetry (%) 96 10/28/18 21:00 Constitutional: Yes: Well Nourished, No Distress, Calm Eyes: Yes: Conjunctiva Clear HENT: Yes: Normocephalic Neck: Yes: Supple Cardiovascular: Yes: Tachycardia Respiratory: Yes: Regular, CTA Bilaterally Gastrointestinal: Yes: Normal Bowel Sounds, Soft, Distention (mild) Musculoskeletal: Yes: WNL Extremities: Yes: WNL Edema: Yes Edema: LLE: 1+, RLE: 1+ Neurological: Yes: Alert, Oriented Psychiatric: Yes: Alert, Oriented Labs: CBC, BMP 10/27/18 07:50 10/27/18 07:50 Problem List - Problems (1) Anasarca Assessment/Plan: -edema is improving -cont with Lasix 40mg IVP daily -daily weights -strict I&O's Code(s): R60.1 - GENERALIZED EDEMA (2) COPD exacerbation Assessment/Plan: -pulmonary on board -continue with prednisone taper -albuterol and duoneb tx PRN for SOB -cont with Symbicort and Spiriva -O2 via NC PRN, keep SpO2 >90% Code(s): J44.1 - CHRONIC OBSTRUCTIVE PULMONARY DISEASE W (ACUTE) EXACERBATION (3) Depression Assessment/Plan: -cont with zoloft, remeron, trazodone -consult psych if necessary Code(s): F32.9 - MAJOR DEPRESSIVE DISORDER, SINGLE EPISODE, UNSPECIFIED Qualifiers: Depression Type: unspecified Qualified Code(s): F32.9 - Major depressive disorder, single episode, unspecified (4) Hypertension Assessment/Plan: -cont lisinopril and labetolol -monitor BP q4h -low Na diet Code(s): I10 - ESSENTIAL (PRIMARY) HYPERTENSION Qualifiers: Hypertension type: essential hypertension Qualified Code(s): I10 - Essential (primary) hypertension (5) Nicotine dependence Assessment/Plan: -nicotine patch daily Code(s): F17.200 - NICOTINE DEPENDENCE, UNSPECIFIED, UNCOMPLICATED Assessment/Plan dvt ppx see problem list
[2018-10-29] MEDS: FUROSEMIDE 40 MG/4 ML INJECTABLE VIAL IVPUSH SCH (10:11)
--- NOTE | 2018-10-29 10:58 | PN ---
Progress Note (short form) - Note Progress Note: Feels better. Reports losing 2 pounds. Breathing feels better. No CP. Intake & Output 10/26/18 10/27/18 10/28/18 10/29/18 23:59 23:59 23:59 23:59 Intake Total 650 1800 360 Output Total 700 Balance -50 1800 360 Weight 212 lb 5 oz 213 lb 6.4 oz 211 lb 2 oz Last Vital Signs Temp Pulse Resp BP Pulse Ox 98.0 F 90 20 118/69 96 10/29/18 05:00 10/29/18 05:00 10/29/18 05:00 10/29/18 05:00 10/28/18 21:00 Active Medications Acetaminophen (Tylenol -) 650 mg PO Q6H PRN PRN Reason: FEVER Last Admin: 10/27/18 20:50 Dose: 650 mg Al Hydroxide/Mg Hydroxide (Mylanta Oral Suspension -) 30 ml PO Q12H PRN PRN Reason: DYSPEPSIA Albuterol Sulfate (Ventolin 0.083% Nebulizer Soln -) 1 amp NEB Q6H PRN PRN Reason: WHEEZING Last Admin: 10/28/18 03:45 Dose: 1 amp Atorvastatin Calcium (Lipitor -) 10 mg PO HS [facility] Last Admin: 10/28/18 23:13 Dose: 10 mg Budesonide/Formoterol Fumarate (Symbicort 160/4.5mcg -) 1 puff IH BID [facility] Last Admin: 10/29/18 09:27 Dose: 1 puff Furosemide (Lasix Injection -) 40 mg IVPUSH DAILY [facility] Last Admin: 10/29/18 10:11 Dose: 40 mg Heparin Sodium (Porcine) (Heparin -) 5,000 unit SQ TID [facility] Last Admin: 10/29/18 05:44 Dose: 5,000 unit Labetalol HCl (Normodyne -) 100 mg PO BID [facility] Last Admin: 10/28/18 23:13 Dose: 100 mg Lisinopril (Prinivil) 20 mg PO BID [facility] Last Admin: 10/28/18 23:13 Dose: 20 mg Melatonin (Melatonin) 5 mg PO HS PRN PRN Reason: INSOMNIA Last Admin: 10/28/18 23:12 Dose: 5 mg Mirtazapine (Remeron -) 30 mg PO HS [facility] Last Admin: 10/28/18 23:13 Dose: 30 mg Multivitamins/Minerals/Vitamin C (Tab-A-Vit -) 1 tab PO DAILY [facility] Last Admin: 10/29/18 09:25 Dose: 1 tab Nicotine (Nicoderm Patch -) 21 mg TD DAILY [facility] Last Admin: 10/29/18 09:25 Dose: 21 mg Nystatin (Nystatin Oral Suspension -) 500,000 units PO Q6HPO [facility] Last Admin: 10/29/18 05:44 Dose: 500,000 units Prednisone (Deltasone -) 10 mg PO DAILY [facility] Stop: 10/31/18 09:59 Last Admin: 10/29/18 09:25 Dose: 10 mg Sertraline HCl (Zoloft -) 50 mg PO DAILY [facility] Last Admin: 10/29/18 09:25 Dose: 50 mg Sodium Chloride ([place] Nasal [place] -) 2 spray NS BID [facility] Last Admin: 10/29/18 09:28 Dose: 2 spray Thiamine HCl (Vitamin B1 -) 100 mg PO HS [facility] Last Admin: 10/28/18 23:12 Dose: 100 mg Tiotropium [place] (Spiriva Respimat) 2 puff IH DAILY [facility] Last Admin: 10/29/18 09:28 Dose: 2 puff Trazodone HCl (Desyrel -) 100 mg PO HS [facility] Last Admin: 10/28/18 23:13 Dose: 100 mg Constitutional: Yes: No Distress, Calm Eyes: Yes: Conjunctiva Clear, EOM Intact HENT: Yes: Atraumatic, Normocephalic Neck: Yes: Supple, Trachea Midline Cardiovascular: Yes: Regular Rate and Rhythm Respiratory: Yes: Cough, Diminished, On Nasal O2, Orthopnea, Rales, Rhonchi. No : Accessory Muscle Use, Stridor, Wheezes ...Inspection: Yes: WNL ...Clubbing: No Gastrointestinal: Yes: Normal Bowel Sounds, Soft, Abdomen, Obese Renal/: Yes: WNL Musculoskeletal: Yes: WNL Extremities: Yes: WNL Edema: Yes Peripheral Pulses WNL: Yes Integumentary: Yes: WNL Neurological: Yes: WNL, Alert, Oriented ...Motor Strength: WNL Psychiatric: Yes: WNL, Alert, Oriented Labs: Problem List - Problems (1) Bronchiectasis Code(s): J47.9 - BRONCHIECTASIS, UNCOMPLICATED (2) Emphysema of lung Code(s): J43.9 - EMPHYSEMA, UNSPECIFIED (3) Anasarca Code(s): R60.1 - GENERALIZED EDEMA (4) SOB (shortness of breath) Code(s): R06.02 - SHORTNESS OF BREATH (5) Anxiety Code(s): F41.9 - ANXIETY DISORDER, UNSPECIFIED (6) Nicotine dependence Code(s): F17.200 - NICOTINE DEPENDENCE, UNSPECIFIED, UNCOMPLICATED (7) COPD (chronic obstructive pulmonary disease) Code(s): J44.9 - CHRONIC OBSTRUCTIVE PULMONARY DISEASE, UNSPECIFIED Qualifiers: COPD type: unspecified COPD Qualified Code(s): J44.9 - Chronic obstructive pulmonary disease, unspecified (8) Hypercholesterolemia Code(s): E78.00 - PURE HYPERCHOLESTEROLEMIA, UNSPECIFIED (9) Hypertension Code(s): I10 - ESSENTIAL (PRIMARY) HYPERTENSION Qualifiers: Hypertension type: essential hypertension Qualified Code(s): I10 - Essential (primary) hypertension Assessment/Plan Would monitor off ABX for now Monitor off Systemic steroids D/C standing Duoneb BD TX PRN Symbicort BID O2 No smoking Lasix Daily weights Dr Carrera Problem List - Problems (1) Bronchiectasis Code(s): J47.9 - BRONCHIECTASIS, UNCOMPLICATED (2) Emphysema of lung Code(s): J43.9 - EMPHYSEMA, UNSPECIFIED (3) Anasarca Code(s): R60.1 - GENERALIZED EDEMA (4) SOB (shortness of breath) Code(s): R06.02 - SHORTNESS OF BREATH (5) Anxiety Code(s): F41.9 - ANXIETY DISORDER, UNSPECIFIED (6) Nicotine dependence Code(s): F17.200 - NICOTINE DEPENDENCE, UNSPECIFIED, UNCOMPLICATED (7) COPD (chronic obstructive pulmonary disease) Code(s): J44.9 - CHRONIC OBSTRUCTIVE PULMONARY DISEASE, UNSPECIFIED Qualifiers: COPD type: unspecified COPD Qualified Code(s): J44.9 - Chronic obstructive pulmonary disease, unspecified (8) Hypercholesterolemia Code(s): E78.00 - PURE HYPERCHOLESTEROLEMIA, UNSPECIFIED (9) Hypertension Code(s): I10 - ESSENTIAL (PRIMARY) HYPERTENSION Qualifiers: Hypertension type: essential hypertension Qualified Code(s): I10 - Essential (primary) hypertension
[2018-10-29] MEDS: ALBUTEROL SO4 0.083% IH SOL 2.5 MG/3 ML VIAL.NEB. NEB PRN ×2 (11:22→20:43)
[2018-10-29] MEDS: LABETALOL HCL 100 MG TABLET (FP) PO SCH ×2 (11:48→21:42)
[2018-10-29] MEDS: LISINOPRIL 20 MG TABLET (FP) PO SCH ×2 (11:48→21:42)
[2018-10-29] MEDS ORDERED: traZODone HCL 50 MG TABLET (FP) ONE (21:40)
[2018-10-29] MEDS: ATORVASTATIN CA 10 MG TABLET (FP) PO SCH (21:42)
[2018-10-29] MEDS: MIRTAZAPINE 15 MG TABLET (FP) PO SCH (21:42)
[2018-10-29] MEDS: THIAMINE HCL 100 MG TABLET (FP) PO SCH (21:42)
[2018-10-29] MEDS: traZODone HCL 100 MG TABLET (FP) PO SCH (21:43)
[2018-10-29] MEDS: MELATONIN 5 MG TABLETS PO PRN (21:43)
[2018-10-30] MEDS: NYSTATIN 500,000 UNITS/5 ML SUSPENSION PO SCH ×4 (00:10→18:02)
[2018-10-30] MEDS: HEPARIN NA (PORCINE) 5,000 UNITS/ML 1ML VIAL SQ SCH ×3 (05:51→22:02)
[2018-10-30 08:17] LABS: HEMATOCRIT 34.3 % (32.4-45.2); HEMOGLOBIN 11.9 GM/dL (10.7-15.3); MCHC 34.8 g/dl (32.0-36.0); MEAN PLT VOLUME 8.1 fl (7.5-11.1); PLATELET COUNT 200 K/MM3 (134-434); RBC 3.61 M/mm3 (3.60-5.2); RDW 16.6 % (11.6-15.6); WHITE BLOOD COUNT 10.6 K/mm3 (4.0-10.0)
[2018-10-30 08:50] LABS: ALBUMIN 3.2 g/dl (3.4-5.0); ALK PHOS 85 U/L (45-117); ANION GAP 6 MMOL/L (8-16); BILIRUBIN,TOTAL 0.2 mg/dL (0.2-1); BLOOD UREA NITROGEN 32 mg/dL (7-18); CALCIUM 8.5 mg/dL (8.5-10.1); CHLORIDE 102 mmol/L (98-107); CO2 31 mmol/L (21-32); CREATININE 0.8 mg/dL (0.55-1.3); GLUCOSE,RANDOM 77 mg/dL (74-106); POTASSIUM 4.1 mmol/L (3.5-5.1); SGOT/AST 13 U/L (15-37); SGPT/ALT 30 U/L (13-61); SODIUM 139 mmol/L (136-145); TOT PROT 6.4 g/dl (6.4-8.2)
[2018-10-30] MEDS: ALBUTEROL SO4 0.083% IH SOL 2.5 MG/3 ML VIAL.NEB. NEB PRN (09:14)
[2018-10-30] MEDS ORDERED: PT OWN MED DRAWER 7, Y5N ONE (09:25)
[2018-10-30] MEDS: FUROSEMIDE 40 MG/4 ML INJECTABLE VIAL IVPUSH SCH (09:27)
[2018-10-30] MEDS: NICOTINE 21 MG/24 HOURS TOPICAL PATCH TD SCH (09:27)
[2018-10-30] MEDS: predniSONE 10 MG TABLET (UD) PO SCH (09:27)
[2018-10-30] MEDS: LABETALOL HCL 100 MG TABLET (FP) PO SCH ×2 (09:28→22:02)
[2018-10-30] MEDS: LISINOPRIL 20 MG TABLET (FP) PO SCH ×2 (09:29→22:02)
[2018-10-30] MEDS: SERTRALINE HCL 50 MG TABLET (FP) PO SCH (09:29)
[2018-10-30] MEDS: MULTIVITAMINS (DAILY MVI) TABLET (FP) PO SCH (09:29)
[2018-10-30] MEDS: SODIUM CHLORIDE NASAL SPRAY 44 ML BOTTLE NS SCH ×2 (09:32→22:03)
[2018-10-30] MEDS: TIOTROPIUM BROMIDE 2.5 MCG (SPIRIVA) RESPIMAT INHALER IH SCH (09:32)
[2018-10-30] MEDS: BUDESONIDE/FORMETEROL FUMARATE 160/4.5 mcg INHALER IH SCH ×2 (09:32→22:02)
[2018-10-30] MEDS: ACETAMINOPHEN 325 MG TABLET (FP) PO PRN (10:10)
--- NOTE | 2018-10-30 12:39 | PN ---
Progress Note (short form) - Note Progress Note: Breathing feels better. Reports crampy abdominal discomfort and reflux. No CP. Intake & Output 10/27/18 10/28/18 10/29/18 10/30/18 23:59 23:59 23:59 23:59 Intake Total 650 1800 1650 350 Output Total 700 Balance -50 1800 1650 350 Weight 213 lb 6.4 oz 211 lb 2 oz 210 lb 11.2 oz Last Vital Signs Temp Pulse Resp BP Pulse Ox 98 F 106 H 20 113/57 L 97 10/30/18 10:00 10/30/18 10:00 10/30/18 10:00 10/30/18 10:00 10/29/18 21:00 Active Medications Acetaminophen (Tylenol -) 650 mg PO Q6H PRN PRN Reason: FEVER Last Admin: 10/30/18 10:10 Dose: 650 mg Al Hydroxide/Mg Hydroxide (Mylanta Oral Suspension -) 30 ml PO Q12H PRN PRN Reason: DYSPEPSIA Albuterol Sulfate (Ventolin 0.083% Nebulizer Soln -) 1 amp NEB Q6H PRN PRN Reason: WHEEZING Last Admin: 10/30/18 09:14 Dose: 1 amp Atorvastatin Calcium (Lipitor -) 10 mg PO HS [facility] Last Admin: 10/29/18 21:42 Dose: 10 mg Budesonide/Formoterol Fumarate (Symbicort 160/4.5mcg -) 1 puff IH BID [facility] Last Admin: 10/30/18 09:32 Dose: 1 puff Furosemide (Lasix Injection -) 40 mg IVPUSH DAILY [facility] Last Admin: 10/30/18 09:27 Dose: 40 mg Heparin Sodium (Porcine) (Heparin -) 5,000 unit SQ TID [facility] Last Admin: 10/30/18 05:51 Dose: 5,000 unit Labetalol HCl (Normodyne -) 100 mg PO BID [facility] Last Admin: 10/30/18 09:28 Dose: Not Given Lisinopril (Prinivil) 20 mg PO BID [facility] Last Admin: 10/30/18 09:29 Dose: Not Given Melatonin (Melatonin) 5 mg PO HS PRN PRN Reason: INSOMNIA Last Admin: 10/29/18 21:43 Dose: 5 mg Mirtazapine (Remeron -) 30 mg PO HS [facility] Last Admin: 10/29/18 21:42 Dose: 30 mg Multivitamins/Minerals/Vitamin C (Tab-A-Vit -) 1 tab PO DAILY [facility] Last Admin: 10/30/18 09:29 Dose: 1 tab Nicotine (Nicoderm Patch -) 21 mg TD DAILY [facility] Last Admin: 10/30/18 09:27 Dose: Not Given Nystatin (Nystatin Oral Suspension -) 500,000 units PO Q6HPO [facility] Last Admin: 10/30/18 12:18 Dose: 500,000 units Prednisone (Deltasone -) 10 mg PO DAILY [facility] Stop: 10/31/18 09:59 Last Admin: 10/30/18 09:27 Dose: 10 mg Sertraline HCl (Zoloft -) 50 mg PO DAILY [facility] Last Admin: 10/30/18 09:29 Dose: 50 mg Sodium Chloride ([place] Nasal [place] -) 2 spray NS BID [facility] Last Admin: 10/30/18 09:32 Dose: 2 spray Thiamine HCl (Vitamin B1 -) 100 mg PO [facility] Last Admin: 10/29/18 21:42 Dose: 100 mg Tiotropium [place] (Spiriva Respimat) 2 puff IH DAILY [facility] Last Admin: 10/30/18 09:32 Dose: 2 puff Trazodone HCl (Desyrel -) 100 mg PO [facility] Last Admin: 10/29/18 21:43 Dose: 100 mg Constitutional: Yes: No Distress, Calm Eyes: Yes: Conjunctiva Clear, EOM Intact HENT: Yes: Atraumatic, Normocephalic Neck: Yes: Supple, Trachea Midline Cardiovascular: Yes: Regular Rate and Rhythm Respiratory: Yes: Cough, Diminished, On Nasal O2. No: Accessory Muscle Use, Stridor, Wheezes ...Inspection: Yes: WNL ...Clubbing: No Gastrointestinal: Yes: Normal Bowel Sounds, Soft, Abdomen, Obese Renal/: Yes: WNL Musculoskeletal: Yes: WNL Extremities: Yes: WNL Edema: Yes Peripheral Pulses WNL: Yes Integumentary: Yes: WNL Neurological: Yes: WNL, Alert, Oriented ...Motor Strength: WNL Psychiatric: Yes: WNL, Alert, Oriented Labs: Laboratory Results - last 24 hr 10/30/18 10/30/18 07:00 07:00 WBC 10.6 H RBC 3.61 Hgb 11.9 Hct 34.3 MCV 95.0 MCH 33.0 MCHC 34.8 RDW 16.6 H Plt Count 200 MPV 8.1 Sodium 139 Potassium 4.1 Chloride 102 Carbon Dioxide 31 Anion Gap 6 L BUN 32 H Creatinine 0.8 Creat Clearance w eGFR > 60 Random Glucose 77 Calcium 8.5 Total Bilirubin 0.2 AST 13 L ALT 30 Alkaline Phosphatase 85 Total Protein 6.4 Albumin 3.2 L Problem List - Problems (1) Bronchiectasis Code(s): J47.9 - BRONCHIECTASIS, UNCOMPLICATED (2) Emphysema of lung Code(s): J43.9 - EMPHYSEMA, UNSPECIFIED (3) Anasarca Code(s): R60.1 - GENERALIZED EDEMA (4) SOB (shortness of breath) Code(s): R06.02 - SHORTNESS OF BREATH (5) Anxiety Code(s): F41.9 - ANXIETY DISORDER, UNSPECIFIED (6) Nicotine dependence Code(s): F17.200 - NICOTINE DEPENDENCE, UNSPECIFIED, UNCOMPLICATED (7) COPD (chronic obstructive pulmonary disease) Code(s): J44.9 - CHRONIC OBSTRUCTIVE PULMONARY DISEASE, UNSPECIFIED Qualifiers: COPD type: unspecified COPD Qualified Code(s): J44.9 - Chronic obstructive pulmonary disease, unspecified (8) Hypercholesterolemia Code(s): E78.00 - PURE HYPERCHOLESTEROLEMIA, UNSPECIFIED (9) Hypertension Code(s): I10 - ESSENTIAL (PRIMARY) HYPERTENSION Qualifiers: Hypertension type: essential hypertension Qualified Code(s): I10 - Essential (primary) hypertension Assessment/Plan Would monitor off ABX for now Monitor off Systemic steroids D/C standing Duoneb BD [place] PRN Symbicort BID O2 No smoking Lasix Daily weights Trial of Maalox Dr Carrera Problem List - Problems (1) Bronchiectasis Code(s): J47.9 - BRONCHIECTASIS, UNCOMPLICATED (2) Emphysema of lung Code(s): J43.9 - EMPHYSEMA, UNSPECIFIED (3) Anasarca Code(s): R60.1 - GENERALIZED EDEMA (4) SOB (shortness of breath) Code(s): R06.02 - SHORTNESS OF BREATH (5) Anxiety Code(s): F41.9 - ANXIETY DISORDER, UNSPECIFIED (6) Nicotine dependence Code(s): F17.200 - NICOTINE DEPENDENCE, UNSPECIFIED, UNCOMPLICATED (7) COPD (chronic obstructive pulmonary disease) Code(s): J44.9 - CHRONIC OBSTRUCTIVE PULMONARY DISEASE, UNSPECIFIED Qualifiers: COPD type: unspecified COPD Qualified Code(s): J44.9 - Chronic obstructive pulmonary disease, unspecified (8) Hypercholesterolemia Code(s): E78.00 - PURE HYPERCHOLESTEROLEMIA, UNSPECIFIED (9) Hypertension Code(s): I10 - ESSENTIAL (PRIMARY) HYPERTENSION Qualifiers: Hypertension type: essential hypertension Qualified Code(s): I10 - Essential (primary) hypertension
[2018-10-30] MEDS ORDERED: MAG HYDROX/AL HYDROX/SIMETH 30 ML UNIT-DOSE CUP PO PRN (12:40)
--- NOTE | 2018-10-30 16:34 | PN ---
Progress Note, Physician Chief Complaint: COPD exacerbation Anasarca History of Present Illness: Previous notes and events reviewed awake and alert NAD sts not feeling as SOB and the swelling is improving tachycardic with HR 111bpm, denies chest pain elev BUN 32 c/o abdominal pain - Current Medication List Current Medications: Active Medications Acetaminophen (Tylenol -) 650 mg PO Q6H PRN PRN Reason: FEVER Last Admin: 10/30/18 10:10 Dose: 650 mg Al Hydroxide/Mg Hydroxide (Mylanta Oral Suspension -) 30 ml PO Q6H PRN PRN Reason: DYSPEPSIA Albuterol Sulfate (Ventolin 0.083% Nebulizer Soln -) 1 amp NEB Q6H PRN PRN Reason: WHEEZING Last Admin: 10/30/18 09:14 Dose: 1 amp Atorvastatin Calcium (Lipitor -) 10 mg PO HS [facility] Last Admin: 10/29/18 21:42 Dose: 10 mg Budesonide/Formoterol Fumarate (Symbicort 160/4.5mcg -) 1 puff IH BID [facility] Last Admin: 10/30/18 09:32 Dose: 1 puff Furosemide (Lasix Injection -) 40 mg IVPUSH DAILY [facility] Last Admin: 10/30/18 09:27 Dose: 40 mg Heparin Sodium (Porcine) (Heparin -) 5,000 unit SQ TID [facility] Last Admin: 10/30/18 14:49 Dose: 5,000 unit Labetalol HCl (Normodyne -) 100 mg PO BID [facility] Last Admin: 10/30/18 09:28 Dose: Not Given Lisinopril (Prinivil) 20 mg PO BID [facility] Last Admin: 10/30/18 09:29 Dose: Not Given Melatonin (Melatonin) 5 mg PO HS PRN PRN Reason: INSOMNIA Last Admin: 10/29/18 21:43 Dose: 5 mg Mirtazapine (Remeron -) 30 mg PO HS [facility] Last Admin: 10/29/18 21:42 Dose: 30 mg Multivitamins/Minerals/Vitamin C (Tab-A-Vit -) 1 tab PO DAILY [facility] Last Admin: 10/30/18 09:29 Dose: 1 tab Nicotine (Nicoderm Patch -) 21 mg TD DAILY [facility] Last Admin: 10/30/18 09:27 Dose: Not Given Nystatin (Nystatin Oral Suspension -) 500,000 units PO Q6HPO [facility] Last Admin: 10/30/18 12:18 Dose: 500,000 units Prednisone (Deltasone -) 10 mg PO DAILY [facility] Stop: 10/31/18 09:59 Last Admin: 10/30/18 09:27 Dose: 10 mg Sertraline HCl (Zoloft -) 50 mg PO DAILY [facility] Last Admin: 10/30/18 09:29 Dose: 50 mg Sodium Chloride ([place] -) 2 spray NS BID [facility] Last Admin: 10/30/18 09:32 Dose: 2 spray Thiamine HCl (Vitamin B1 -) 100 mg PO HS [facility] Last Admin: 10/29/18 21:42 Dose: 100 mg Tiotropium [place] (Spiriva Respimat) 2 puff IH DAILY [facility] Last Admin: 10/30/18 09:32 Dose: 2 puff Trazodone HCl (Desyrel -) 100 mg PO HS [facility] Last Admin: 10/29/18 21:43 Dose: 100 mg - Objective Vital Signs: Vital Signs Temperature 97.8 F 10/30/18 14:41 Pulse Rate 111 H 10/30/18 14:41 Respiratory Rate 22 H 10/30/18 14:41 Blood Pressure 119/72 10/30/18 14:41 O2 Sat by Pulse Oximetry (%) 97 10/29/18 21:00 Constitutional: Yes: Well Nourished, No Distress, Calm Eyes: Yes: Conjunctiva Clear HENT: Yes: Normocephalic Cardiovascular: Yes: Tachycardia Respiratory: Yes: On Nasal O2, Wheezes Gastrointestinal: Yes: Normal Bowel Sounds, Soft, Distention (mild), Tenderness (diffuse) Musculoskeletal: Yes: WNL Extremities: Yes: WNL Edema: No Neurological: Yes: Alert, Oriented Psychiatric: Yes: Alert, Oriented Labs: CBC, BMP 10/30/18 07:00 10/30/18 07:00 Problem List - Problems (1) Anasarca Assessment/Plan: -edema is improving -cont with Lasix 40mg IVP daily -daily weights -strict I&O's Code(s): R60.1 - GENERALIZED EDEMA (2) COPD exacerbation Assessment/Plan: -pulmonary on board -continue with prednisone taper -albuterol neb PRN for SOB -cont with Symbicort and Spiriva -O2 via NC PRN, keep SpO2 >90% Code(s): J44.1 - CHRONIC OBSTRUCTIVE PULMONARY DISEASE W (ACUTE) EXACERBATION (3) Depression Assessment/Plan: -cont with zoloft, remeron, trazodone -consult psych if necessary Code(s): F32.9 - MAJOR DEPRESSIVE DISORDER, SINGLE EPISODE, UNSPECIFIED Qualifiers: Depression Type: unspecified Qualified Code(s): F32.9 - Major depressive disorder, single episode, unspecified (4) Hypertension Assessment/Plan: -cont lisinopril and labetolol -monitor BP q4h -low Na diet -cardiology consult for tachycardia Code(s): I10 - ESSENTIAL (PRIMARY) HYPERTENSION Qualifiers: Hypertension type: essential hypertension Qualified Code(s): I10 - Essential (primary) hypertension (5) Nicotine dependence Assessment/Plan: -nicotine patch daily Code(s): F17.200 - NICOTINE DEPENDENCE, UNSPECIFIED, UNCOMPLICATED (6) Abdominal pain Assessment/Plan: -abdominal US ordered -GI consult -maalox prn Code(s): R10.9 - UNSPECIFIED ABDOMINAL PAIN (7) Elevated BUN Assessment/Plan: -renal consult -BUN 32, will continue to monitor Code(s): R79.9 - ABNORMAL FINDING OF BLOOD CHEMISTRY, UNSPECIFIED
[2018-10-30] MEDS ORDERED: traZODone HCL 50 MG TABLET (FP) ONE (21:15)
[2018-10-30] MEDS: MIRTAZAPINE 15 MG TABLET (FP) PO SCH (22:02)
[2018-10-30] MEDS: ATORVASTATIN CA 10 MG TABLET (FP) PO SCH (22:02)
[2018-10-30] MEDS: traZODone HCL 100 MG TABLET (FP) PO SCH (22:02)
[2018-10-30] MEDS: THIAMINE HCL 100 MG TABLET (FP) PO SCH (22:02)
[2018-10-31] MEDS: NYSTATIN 500,000 UNITS/5 ML SUSPENSION PO SCH ×4 (00:51→18:54)
[2018-10-31] MEDS: HEPARIN NA (PORCINE) 5,000 UNITS/ML 1ML VIAL SQ SCH ×3 (05:32→21:35)
[2018-10-31] MEDS: ALBUTEROL SO4 0.083% IH SOL 2.5 MG/3 ML VIAL.NEB. NEB PRN ×3 (06:25→19:23)
--- NOTE | 2018-10-31 09:16 | CON.GI ---
Consult Consult Specialty:: GI Referred by:: Daylin Ann NP Reason for Consultation:: Abdominal pain - History of Present Illness Chief Complaint: Abdominal pain History of Present Illness: 53 y/o female with phistory of polysubstance abuse, anxiety, depression, asthma , COPD, HTN, HLD. She was admitted with Exacerbation of COPD .Patient has been complaining of left sided abdominal pain radiating to mid abdomen assciaated with Dysphagia for 1 week. Denies nausea or vomiting with complaints of abdominal pain. Abdominal CT scan performed shows cholelithiasis without evidence of acute cholecystitis, moderate gallbladder contraction. Denies heartburn, early satiety, or abnormal weight loss. - History Source History Provided By: Patient Limitations to Obtaining History: No Limitations - Past Medical History Cardio/Vascular: Yes: HTN Pulmonary: Yes: Bronchitis, COPD, O2 Dependent, Pneumonia. No: Pulmonary Embolus, Pulmonary Fibrosis, Sleep Apnea ...: No Psych: Yes: Anxiety, Depression - Past Surgical History Past Surgical History: Yes: Appendectomy - Alcohol/Substance Use Hx Alcohol Use: Yes - Smoking History Smoking history: Former smoker Have you smoked in the past 12 months: Yes Aproximately how many cigarettes per day: 5 If you are a former smoker, when did you quit?: 10/05/18 "35 days ago" - Social History Usual Living Arrangement: Longterm ADL: Independent Home Medications - Allergies Allergies/Adverse Reactions: Allergies Allergy/AdvReac Type Severity Reaction Status Date / Time No Known Allergies Allergy Verified 10/26/18 12:31 - Home Medications Home Medications: Ambulatory Orders Acetaminophen [Tylenol] 650 mg PO ASDIR 10/05/18 Albuterol 0.083% Nebulizer Jyoti [Ventolin 0.083% Nebulizer Soln -] 1 neb NEB QID 10/05/18 Albuterol 2.5/Ipratropium 0.5 [Duoneb -] 1 neb NEB Q4H 10/05/18 Budesonide/Formeterol Fumarate [SYMBICORT 160/4.5mcg -] 1 inh PO BID 10/05/18 Hydrochlorothiazide 12.5 mg PO DAILY 10/05/18 Labetalol HCl [Normodyne -] 100 mg PO BID 10/05/18 Mag Hydrox/Al Hydrox/Simeth [Mylanta Oral Suspension -] 1 dose PO ASDIR Melatonin 5 mg PO DAILY 10/05/18 Mirtazapine [Remeron -] 30 mg PO DAILY 10/05/18 Nifedipine [Procardia Xl] 30 mg PO DAILY 10/05/18 95/Iron Fum/Folic/Dha [ + Dha Combo Pack] 1 each PO DAILY 10/05 Sertraline HCl [Zoloft -] 50 mg PO DAILY 10/05/18 Thiamine HCl [B-1] 100 mg PO HS 10/05/18 traZODone HCL [Trazodone HCl] 100 mg PO ASDIR 10/05/18 Albuterol Sulfate Inhaler - [Ventolin HFA Inhaler -] 2 puff IH Q4H PRN 10/08/18 Simvastatin 20 mg PO HS 10/08/18 Aclidinium Era [Tudorza Pressair] 400 mcg IH DAILY 10/12/18 Budesonide/Formeterol Fumarate [SYMBICORT 160/4.5mcg -] 2 puff IH BID inhaler 10/12/18 Nicotine Patch [Nicoderm Patch -] 21 mg TD DAILY patch 10/12/18 Nystatin Oral Suspension - [Nystatin Oral Susp 808374 Units/5 ML -] 500,000 units PO Q6HPO cup 10/12/18 Ranitidine [Zantac -] 150 mg PO BID tablet 10/12/18 Sodium Chloride Nasal [place] [[facility] [place] Nasal [place] -] 2 spray NS BID spray Family Disease History - Family Disease History Family Disease History: Heart Disease: Father (HTN, ), Mother Review of Systems - Review of Systems Constitutional: reports: No Symptoms Eyes: reports: No Symptoms HENT: reports: Difficult Swallowing Neck: reports: No Symptoms Cardiovascular: reports: No Symptoms Respiratory: reports: SOB Gastrointestinal: reports: Abdominal Pain Genitourinary: reports: No Symptoms Breasts: reports: No Symptoms Reported Musculoskeletal: reports: No Symptoms Integumentary: reports: No Symptoms Neurological: reports: No Symptoms Endocrine: reports: No Symptoms Hematology/Lymphatic: reports: No Symptoms Psychiatric: reports: No Symptoms Physical Exam-GI Vital Signs: Vital Signs Temperature 97.4 F L 10/31/18 06:00 Pulse Rate 90 10/31/18 06:00 Respiratory Rate 20 10/31/18 06:00 Blood Pressure 103/64 10/31/18 06:00 O2 Sat by Pulse Oximetry (%) 98 10/30/18 21:00 Constitutional: Yes: No Distress, Obese Eyes: Yes: Conjunctiva Clear HENT: Yes: Normocephalic Neck: Yes: Supple Cardiovascular: Yes: Regular Rate and Rhythm Respiratory: Yes: On Nasal O2, Wheezes Gastrointestinal Inspection: Yes: Distention (mild). No: WNL, Ascites, Hernia, Scars, Other ...Auscultate: Yes: Normoactive Bowel Sounds. No: Hyperactive Bowel Sounds, Hypoactive Bowel Sounds, No Bowel Sounds, Other ...Palpate: Yes: Tenderness, Epigastium ...Percussion: Yes: Tympanitic. No: Dullness, Fluid Wave, Other Musculoskeletal: Yes: WNL Neurological: Yes: Alert, Oriented Labs: CBC, BMP 10/30/18 07:00 10/30/18 07:00 Active Medications Generic Name Dose Route Start Last Admin Trade Name Freq PRN Reason Stop Dose Admin Acetaminophen 650 mg 10/27/18 20:36 10/30/18 10:10 Tylenol - PO 650 mg Q6H PRN Administration FEVER Al Hydroxide/Mg Hydroxide 30 ml 10/30/18 12:40 10/30/18 18:44 Mylanta Oral Suspension - PO 30 ml Q6H PRN Administration DYSPEPSIA Albuterol Sulfate 1 amp 10/26/18 20:41 10/31/18 06:25 Ventolin 0.083% Nebulizer Soln - NEB 1 amp Q6H PRN Administration WHEEZING Atorvastatin Calcium 10 mg 10/26/18 22:00 10/30/18 22:02 Lipitor - PO 10 mg HS BETH Administration Budesonide/Formoterol Fumarate 1 puff 10/26/18 22:00 10/30/18 22:02 Symbicort 160/4.5mcg - IH 1 puff BID BETH Administration Furosemide 40 mg 10/28/18 10:00 10/30/18 09:27 Lasix Injection - IVPUSH 40 mg DAILY BETH Administration Heparin Sodium (Porcine) 5,000 unit 10/27/18 06:00 10/31/18 05:32 Heparin - SQ 5,000 unit TID BETH Administration Labetalol HCl 100 mg 10/26/18 22:00 10/30/18 22:02 Normodyne - PO 100 mg BID BETH Administration Lisinopril 20 mg 10/26/18 22:00 10/30/18 22:02 Prinivil PO 20 mg BID BETH Administration Melatonin 5 mg 10/26/18 20:41 10/29/18 21:43 Melatonin PO 5 mg HS PRN Administration INSOMNIA Mirtazapine 30 mg 10/27/18 22:00 10/30/18 22:02 Remeron - PO 30 mg HS BETH Administration Multivitamins/Minerals/Vitamin C 1 tab 10/27/18 10:00 10/30/18 09:29 Tab-A-Vit - PO 1 tab DAILY [facility] Administration Nicotine 21 mg 10/26/18 20:45 10/30/18 09:27 Nicoderm Patch - TD Not Given DAILY [facility] Nystatin 500,000 units 10/27/18 00:00 10/31/18 05:32 Nystatin Oral Suspension - PO 500,000 units Q6HPO [facility]ETH Administration Prednisone 10 mg 10/27/18 10:00 10/30/18 09:27 Deltasone - PO 10/31/18 09:59 10 mg DAILY [facility] Administration Sertraline HCl 50 mg 10/26/18 22:00 10/30/18 09:29 Zoloft - PO 50 mg DAILY [facility] Administration Sodium Chloride 2 spray 10/26/18 22:00 10/30/18 22:03 [facility] [place] Nasal [place] - NS 2 spray BID B[facility] Administration Thiamine HCl 100 mg 10/26/18 22:00 10/30/18 22:02 Vitamin B1 - PO 100 mg HS BETH Administration Tiotropium [place] 2 puff 10/27/18 10:00 10/30/18 09:32 Spiriva Respimat IH 2 puff DAILY [facility] Administration Trazodone HCl 100 mg 10/26/18 22:00 10/30/18 22:02 Desyrel - PO 100 mg HS [facility] Administration Hepatitis Profile WBC 10.6 K/mm3 (4.0-10.0) H 10/30/18 07:00 RBC 3.61 M/mm3 (3.60-5.2) 10/30/18 07:00 Hgb 11.9 GM/dL (10.7-15.3) 10/30/18 07:00 Hct 34.3 % (32.4-45.2) 10/30/18 07:00 MCV 95.0 fl (80-96) 10/30/18 07:00 Neutrophils % 65.2 % (42.8-82.8) 10/27/18 07:50 Lymphocytes % 24.5 % (8-40) 10/27/18 07:50 Monocytes % 8.2 % (3.8-10.2) 10/27/18 07:50 Basophils % 1.2 % (0-2.0) 10/27/18 07:50 Home Medications Medication Instructions Recorded Acetaminophen [Tylenol] 650 mg PO ASDIR 10/05/18 Albuterol 0.083% Nebulizer Jytoi 1 neb NEB QID 10/05/18 [Ventolin 0.083% Nebulizer Soln -] Albuterol 2.5/Ipratropium 0.5 1 neb NEB Q4H 10/05/18 [Duoneb -] Budesonide/Formeterol Fumarate 1 inh PO BID 10/05/18 [SYMBICORT 160/4.5mcg -] Hydrochlorothiazide 12.5 mg PO DAILY 10/05/18 Labetalol HCl [Normodyne -] 100 mg PO BID 10/05/18 Mag Hydrox/Al Hydrox/Simeth 1 dose PO ASDIR 10/05/18 [Mylanta Oral Suspension -] Melatonin 5 mg PO DAILY 10/05/18 Mirtazapine [Remeron -] 30 mg PO DAILY 10/05/18 Nifedipine [Procardia Xl] 30 mg PO DAILY 10/05/18 95/Iron Fum/Folic/Dha 1 each PO DAILY 10/05/18 [ + Dha Combo Pack] Sertraline HCl [Zoloft -] 50 mg PO DAILY 10/05/18 Thiamine HCl [B-1] 100 mg PO HS 10/05/18 traZODone HCL [Trazodone HCl] 100 mg PO ASDIR 10/05/18 Albuterol Sulfate Inhaler - 2 puff IH Q4H PRN 10/08/18 [Ventolin HFA Inhaler -] Simvastatin 20 mg PO HS 10/08/18 Aclidinium [place] [Tudorza 400 mcg IH DAILY 10/12/18 Pressair] Budesonide/Formeterol Fumarate 2 puff IH BID inhaler 10/12/18 [SYMBICORT 160/4.5mcg -] Nicotine Patch [Nicoderm Patch -] 21 mg TD DAILY patch 10/12/18 Nystatin Oral Suspension - 500,000 units PO Q6HPO cup 10/12/18 [Nystatin Oral Susp 289427 Units/5 ML -] Ranitidine [Zantac -] 150 mg PO BID tablet 10/12/18 Sodium Chloride Nasal [place] [[facility] 2 spray NS BID spray 10/12/18 [place] Nasal [place] -] Imaging - Results Cat Scan: Report Reviewed Problem List - Problems (1) Dysphagia Assessment/Plan: >R will order Barium Esophogram Pantoprazole 40mg daily Code(s): R13.10 - DYSPHAGIA, UNSPECIFIED (2) Abdominal pain Assessment/Plan: >pending abd US Code(s): R10.9 - UNSPECIFIED ABDOMINAL PAIN (3) Cholelithiasis Code(s): K80.20 - CALCULUS OF GALLBLADDER W/O CHOLECYSTITIS W/O OBSTRUCTION
--- NOTE | 2018-10-31 09:54 | PN ---
Progress Note, Physician - Current Medication List Current Medications: Active Medications Acetaminophen (Tylenol -) 650 mg PO Q6H PRN PRN Reason: FEVER Last Admin: 10/30/18 10:10 Dose: 650 mg Al Hydroxide/Mg Hydroxide (Mylanta Oral Suspension -) 30 ml PO Q6H PRN PRN Reason: DYSPEPSIA Last Admin: 10/30/18 18:44 Dose: 30 ml Albuterol Sulfate (Ventolin 0.083% Nebulizer Soln -) 1 amp NEB Q6H PRN PRN Reason: WHEEZING Last Admin: 10/31/18 06:25 Dose: 1 amp Atorvastatin Calcium (Lipitor -) 10 mg PO HS [facility] Last Admin: 10/30/18 22:02 Dose: 10 mg Budesonide/Formoterol Fumarate (Symbicort 160/4.5mcg -) 1 puff IH BID [facility] Last Admin: 10/30/18 22:02 Dose: 1 puff Furosemide (Lasix Injection -) 40 mg IVPUSH DAILY [facility] Last Admin: 10/30/18 09:27 Dose: 40 mg Heparin Sodium (Porcine) (Heparin -) 5,000 unit SQ TID [facility] Last Admin: 10/31/18 05:32 Dose: 5,000 unit Labetalol HCl (Normodyne -) 100 mg PO BID [facility] Last Admin: 10/30/18 22:02 Dose: 100 mg Lisinopril (Prinivil) 20 mg PO BID [facility] Last Admin: 10/30/18 22:02 Dose: 20 mg Melatonin (Melatonin) 5 mg PO HS PRN PRN Reason: INSOMNIA Last Admin: 10/29/18 21:43 Dose: 5 mg Mirtazapine (Remeron -) 30 mg PO HS [facility] Last Admin: 10/30/18 22:02 Dose: 30 mg Multivitamins/Minerals/Vitamin C (Tab-A-Vit -) 1 tab PO DAILY [facility] Last Admin: 10/30/18 09:29 Dose: 1 tab Nicotine (Nicoderm Patch -) 21 mg TD DAILY [facility] Last Admin: 10/30/18 09:27 Dose: Not Given Nystatin (Nystatin Oral Suspension -) 500,000 units PO Q6HPO [facility] Last Admin: 10/31/18 05:32 Dose: 500,000 units Pantoprazole Sodium (Protonix -) 40 mg PO DAILY [facility] Prednisone (Deltasone -) 10 mg PO DAILY [facility] Stop: 10/31/18 09:59 Last Admin: 10/30/18 09:27 Dose: 10 mg Sertraline HCl (Zoloft -) 50 mg PO DAILY [facility] Last Admin: 10/30/18 09:29 Dose: 50 mg Sodium Chloride ([place] Nasal [place] -) 2 spray NS BID [facility] Last Admin: 10/30/18 22:03 Dose: 2 spray Thiamine HCl (Vitamin B1 -) 100 mg PO [facility] Last Admin: 10/30/18 22:02 Dose: 100 mg Tiotropium [place] (Spiriva Respimat) 2 puff IH DAILY [facility] Last Admin: 10/30/18 09:32 Dose: 2 puff Trazodone HCl (Desyrel -) 100 mg PO [facility] Last Admin: 10/30/18 22:02 Dose: 100 mg - Objective Vital Signs: Vital Signs Temperature 97.4 F L 10/31/18 06:00 Pulse Rate 90 10/31/18 06:00 Respiratory Rate 20 10/31/18 09:00 Blood Pressure 103/64 10/31/18 06:00 O2 Sat by Pulse Oximetry (%) 98 10/31/18 09:00 Cardiovascular: Yes: S1, S2 Respiratory: Yes: Diminished Gastrointestinal: Yes: Normal Bowel Sounds, Soft Edema: Yes Edema: LLE: 1+, RLE: 1+ Labs: CBC, BMP 10/30/18 07:00 10/30/18 07:00 Problem List - Problems (1) CHF (congestive heart failure) Assessment/Plan: -edema is improving -cont with Lasix 40mg IVP daily -daily weights -strict I&O's Code(s): I50.9 - HEART FAILURE, UNSPECIFIED (2) COPD exacerbation Assessment/Plan: -pulmonary on board -continue with prednisone taper -albuterol neb PRN for SOB -cont with Symbicort and Spiriva -O2 via NC PRN, keep SpO2 >90% Code(s): J44.1 - CHRONIC OBSTRUCTIVE PULMONARY DISEASE W (ACUTE) EXACERBATION (3) Hypertension Assessment/Plan: -cont lisinopril and labetolol -monitor BP q4h -low Na diet -cardiology consult for tachycardia Code(s): I10 - ESSENTIAL (PRIMARY) HYPERTENSION Qualifiers: Hypertension type: essential hypertension Qualified Code(s): I10 - Essential (primary) hypertension (4) Abdominal pain Assessment/Plan: -Maybe due to constipation -abdominal US ordered -GI consult -maalox prn -Miralax Code(s): R10.9 - UNSPECIFIED ABDOMINAL PAIN (5) Depression Assessment/Plan: -cont with zoloft, remeron, trazodone -consult psych if necessary Code(s): F32.9 - MAJOR DEPRESSIVE DISORDER, SINGLE EPISODE, UNSPECIFIED Qualifiers: Depression Type: unspecified Qualified Code(s): F32.9 - Major depressive disorder, single episode, unspecified
[2018-10-31] MEDS: FUROSEMIDE 40 MG/4 ML INJECTABLE VIAL IVPUSH SCH (11:39)
[2018-10-31] MEDS: LABETALOL HCL 100 MG TABLET (FP) PO SCH ×2 (11:40→21:35)
[2018-10-31] MEDS: MULTIVITAMINS (DAILY MVI) TABLET (FP) PO SCH (11:40)
[2018-10-31] MEDS: SERTRALINE HCL 50 MG TABLET (FP) PO SCH (11:40)
[2018-10-31] MEDS: PANTOPRAZOLE 40 MG TABLET (FP) PO SCH (11:40)
[2018-10-31] MEDS: NICOTINE 21 MG/24 HOURS TOPICAL PATCH TD SCH (11:40)
[2018-10-31] MEDS: LISINOPRIL 20 MG TABLET (FP) PO SCH ×2 (11:40→21:34)
--- NOTE | 2018-10-31 11:40 | EKG ---
Test Reason : Blood Pressure : / mmHG Vent. Rate : 108 BPM Atrial Rate : 108 BPM P-R Int : 132 ms QRS Dur : 072 ms QT Int : 348 ms P-R-T Axes : 075 080 062 degrees QTc Int : 466 ms POOR DATA QUALITY, INTERPRETATION MAY BE ADVERSELY AFFECTED SINUS TACHYCARDIA OTHERWISE NORMAL ECG WHEN COMPARED WITH ECG OF 26-OCT-2018 12:59, NO SIGNIFICANT CHANGE WAS FOUND Confirmed by AMY TORRES, ESTRELLA ([id number]) on 10/31/2018 11:40:41 AM Referred By: Confirmed By:ESTRELLA REYES MD
[2018-10-31] MEDS: BUDESONIDE/FORMETEROL FUMARATE 160/4.5 mcg INHALER IH SCH ×2 (11:41→21:36)
[2018-10-31] MEDS: SODIUM CHLORIDE NASAL SPRAY 44 ML BOTTLE NS SCH ×2 (11:41→21:35)
[2018-10-31] MEDS: TIOTROPIUM BROMIDE 2.5 MCG (SPIRIVA) RESPIMAT INHALER IH SCH (11:41)
[2018-10-31] MEDS: POLYETHYLENE GLYCOL 3350 119 GM BTL PO SCH ×2 (11:42→21:35)
--- NOTE | 2018-10-31 12:05 | PN ---
Progress Note, Physician History of Present Illness: PULMONARY ALERT,FEELING BETTER,LESS DYSPNEIC,SITTING UP IN BED - Current Medication List Current Medications: Active Medications Acetaminophen (Tylenol -) 650 mg PO Q6H PRN PRN Reason: FEVER Last Admin: 10/30/18 10:10 Dose: 650 mg Al Hydroxide/Mg Hydroxide (Mylanta Oral Suspension -) 30 ml PO Q6H PRN PRN Reason: DYSPEPSIA Last Admin: 10/30/18 18:44 Dose: 30 ml Albuterol Sulfate (Ventolin 0.083% Nebulizer Soln -) 1 amp NEB Q6H PRN PRN Reason: WHEEZING Last Admin: 10/31/18 06:25 Dose: 1 amp Atorvastatin Calcium (Lipitor -) 10 mg PO HS [facility] Last Admin: 10/30/18 22:02 Dose: 10 mg Budesonide/Formoterol Fumarate (Symbicort 160/4.5mcg -) 1 puff IH BID [facility] Last Admin: 10/31/18 11:41 Dose: 1 puff Furosemide (Lasix Injection -) 40 mg IVPUSH DAILY [facility] Last Admin: 10/31/18 11:39 Dose: 40 mg Heparin Sodium (Porcine) (Heparin -) 5,000 unit SQ TID [facility] Last Admin: 10/31/18 05:32 Dose: 5,000 unit Labetalol HCl (Normodyne -) 100 mg PO BID [facility] Last Admin: 10/31/18 11:40 Dose: 100 mg Lisinopril (Prinivil) 20 mg PO BID [facility] Last Admin: 10/31/18 11:40 Dose: 20 mg Melatonin (Melatonin) 5 mg PO HS PRN PRN Reason: INSOMNIA Last Admin: 10/29/18 21:43 Dose: 5 mg Mirtazapine (Remeron -) 30 mg PO HS [facility] Last Admin: 10/30/18 22:02 Dose: 30 mg Multivitamins/Minerals/Vitamin C (Tab-A-Vit -) 1 tab PO DAILY [facility] Last Admin: 10/31/18 11:40 Dose: 1 tab Nicotine (Nicoderm Patch -) 21 mg TD DAILY [facility] Last Admin: 10/31/18 11:40 Dose: 21 mg Nystatin (Nystatin Oral Suspension -) 500,000 units PO Q6HPO [facility] Last Admin: 10/31/18 11:40 Dose: 500,000 units Pantoprazole Sodium (Protonix -) 40 mg PO DAILY [facility] Last Admin: 10/31/18 11:40 Dose: 40 mg Polyethylene Glycol (Miralax (For Daily Use) -) 17 gm PO BID [facility] Last Admin: 10/31/18 11:42 Dose: Not Given Sertraline HCl (Zoloft -) 50 mg PO DAILY [facility] Last Admin: 10/31/18 11:40 Dose: 50 mg Sodium Chloride ([place] Nasal [place] -) 2 spray NS BID [facility] Last Admin: 10/31/18 11:41 Dose: 2 spray Thiamine HCl (Vitamin B1 -) 100 mg [address] [facility] Last Admin: 10/30/18 22:02 Dose: 100 mg Tiotropium [place] (Spiriva Respimat) 2 puff IH DAILY [facility] Last Admin: 10/31/18 11:41 Dose: 2 puff Trazodone HCl (Desyrel -) 100 mg PO [facility] Last Admin: 10/30/18 22:02 Dose: 100 mg - Objective Vital Signs: Vital Signs Temperature 98 F 10/31/18 11:52 Pulse Rate 91 H 10/31/18 11:52 Respiratory Rate 22 H 10/31/18 11:52 Blood Pressure 139/69 10/31/18 11:52 O2 Sat by Pulse Oximetry (%) 98 10/31/18 09:00 Constitutional: Yes: Calm, Obese Eyes: Yes: WNL HENT: Yes: WNL Neck: Yes: WNL Cardiovascular: Yes: Regular Rate and Rhythm, S1, S2 Respiratory: Yes: Rhonchi (FEW SCATTERED KARL RHONCHI) Gastrointestinal: Yes: Normal Bowel Sounds, Soft Extremities: Yes: WNL Edema: No Labs: CBC, BMP 10/30/18 07:00 10/30/18 07:00 - ....Imaging Ultrasound: Report Reviewed (MULTIPLE GALLSTONES) Assessment/Plan Problem List - Problems (1) Bronchiectasis Code(s): J47.9 - BRONCHIECTASIS, UNCOMPLICATED (2) Emphysema of lung Code(s): J43.9 - EMPHYSEMA, UNSPECIFIED (3) Anasarca Code(s): R60.1 - GENERALIZED EDEMA (4) SOB (shortness of breath) Code(s): R06.02 - SHORTNESS OF BREATH (5) Anxiety Code(s): F41.9 - ANXIETY DISORDER, UNSPECIFIED (6) Nicotine dependence Code(s): F17.200 - NICOTINE DEPENDENCE, UNSPECIFIED, UNCOMPLICATED (7) COPD (chronic obstructive pulmonary disease) Code(s): J44.9 - CHRONIC OBSTRUCTIVE PULMONARY DISEASE, UNSPECIFIED Qualifiers: COPD type: unspecified COPD Qualified Code(s): J44.9 - Chronic obstructive pulmonary disease, unspecified (8) Hypercholesterolemia Code(s): E78.00 - PURE HYPERCHOLESTEROLEMIA, UNSPECIFIED (9) Hypertension Code(s): I10 - ESSENTIAL (PRIMARY) HYPERTENSION Qualifiers: Hypertension type: essential hypertension Qualified Code(s): I10 - Essential (primary) hypertension Assessment/Plan BD TX PRN Symbicort BID O2 No smoking Lasix Daily weights gi f/u DR HURST Problem List - Problems (1) Bronchiectasis Code(s): J47.9 - BRONCHIECTASIS, UNCOMPLICATED (2) Emphysema of lung Code(s): J43.9 - EMPHYSEMA, UNSPECIFIED (3) Anasarca Code(s): R60.1 - GENERALIZED EDEMA (4) SOB (shortness of breath) Code(s): R06.02 - SHORTNESS OF BREATH (5) Anxiety Code(s): F41.9 - ANXIETY DISORDER, UNSPECIFIED (6) Nicotine dependence Code(s): F17.200 - NICOTINE DEPENDENCE, UNSPECIFIED, UNCOMPLICATED (7) COPD (chronic obstructive pulmonary disease) Code(s): J44.9 - CHRONIC OBSTRUCTIVE PULMONARY DISEASE, UNSPECIFIED Qualifiers: COPD type: unspecified COPD Qualified Code(s): J44.9 - Chronic obstructive pulmonary disease, unspecified (8) Hypercholesterolemia Code(s): E78.00 - PURE HYPERCHOLESTEROLEMIA, UNSPECIFIED (9) Hypertension Code(s): I10 - ESSENTIAL (PRIMARY) HYPERTENSION Qualifiers: Hypertension type: essential hypertension Qualified Code(s): I10 - Essential (primary) hypertension
--- NOTE | 2018-10-31 12:45 | CONSULT ---
Admitting History and Physical - Primary Care Physician PCP: Manoj Kolb - Admission History of Present Illness: Per EMR: HISTORY OF PRESENT ILLNESS: Patient is a 53 year old female presented from [facility] to the ED with the chief complaint of " Worsening shortness of breath and swelling of the body x 1 week". Patient was recently admitted at [facility] from 10/10/18 to 10/12/18 for evaluation of COPD Exacerbation and hypoxia, was sent to [facility] for short term pulmonary rehab. Patient states that she started having shortness of breath x 1 week, using about 7-8 pillows at night, disturbed sleep, cannot lay flat but denies chest pain or palpitations. Also reports that she noticed swelling of the legs initially then started having generalized swelling to the point that her breast got engorged, abdomen was distended. Patient also mentions she as been urinating more frequently and felt pressure in the suprapubic area. Due to these symptoms she called 911 and came to the ED for further evaluation. Bowel habit normal. ER course was notable for: (1) Afebrile, WBC 14.6; UA 2 + LE, WBC 10 (2) CT chest with contrast/ Abdomen/Pelvis CT No acute pathology (3) Duoneb, IV Lasix 20mg Admitted via the ER due to worsening shortness of breath and increasing generalized edema especially in the LE x 1 week. Pt has improved since admission but c/o dysphagia/ mucous stuck in her throat that she is unable to clear. . Appetite has been quite good per staff. Selected Entries 10/30/18 10/30/18 10/30/18 02:00 06:00 09:27 Breakfast 100% Lunch Supper Temperature 98.6 F 97.8 F 10/30/18 10/30/18 10/30/18 10:00 14:41 18:00 Breakfast Lunch 100% Supper Temperature 98 F 97.8 F 98.0 F 10/30/18 10/30/18 10/31/18 18:09 22:00 02:00 Breakfast Lunch Supper 100% Temperature 98.0 F 98.3 F 10/31/18 10/31/18 10/31/18 06:00 09:25 11:52 Breakfast 100% Lunch Supper Temperature 97.4 F L 98 F Laboratory Tests 10/27/18 10/30/18 07:50 07:00 WBC 11.6 H 10.6 H History Source: Patient, Medical Record - Past Medical History Cardiovascular: Yes: HTN Pulmonary: Yes: Bronchitis, COPD, O2 Dependent, Pneumonia. No: Pulmonary Embolus, Pulmonary Fibrosis, Sleep Apnea ...: No Psych: Yes: Anxiety, Depression - Past Surgical History Past Surgical History: Yes: Appendectomy - Smoking History Smoking history: Former smoker Have you smoked in the past 12 months: Yes Aproximately how many cigarettes per day: 5 If you are a former smoker, when did you quit?: 10/05/18 "35 days ago" - Alcohol/Substance Use Hx Alcohol Use: Yes - Social History ADL: Independent History - Admission Reason For Visit: ACUTE EXACERBATION OF CHRONIC OBSTRUCTIVE PULMONAR - Diagnostics X-ray: Report Reviewed CT Scan: Report Reviewed - General Mental Status: Alert and Oriented, Awake and Alert, Able to Follow Commands Attention: Intact Ability to Follow Directions: Good Head/Neck Control: WFL - Hearing Hearing: Normal With Patient: Yes Speech Evaluation - Communication Primary Language: [place] Communication: Yes: Within Normal Limits Oral Expression Ability: Yes: No Impairment - Speech Production Able to Make Needs Known: Yes: WNL Intelligibility: Yes: WNL - Speech Characteristics Voice Loudness: Normal Voice Pitch: Yes: Normal Voice Phonatory-based Quality: Yes: Normal Speech Pattern: Normal Speech Clarity: < 100% Nasal Resonance: Normal Articulation: Yes: Precise - Language/Auditory Comprehension Follows: Yes: 2 Stage Simple Commands - Language/Verbal Expression Able to Respond to Simple Queries: Yes: WNL Able to Communicate Wants and Needs: Yes: WNL Functional Communication Status: Yes: WNL - Swallow Evaluation/Bedside Assessment Current Nutritional Intake: Regular, Thin Liquids Oral Secretions: Yes: WFL (c/o phlegm) Dentition: Yes: Missing Teeth Facial Symmetry at Rest: Symmetrical Facial Symmetry on Retraction: Symmetrical Facial Movement: Controlled Against Resistance Opening: Normal Against Resistance Closing: Normal Pucker Lips: Normal Smile: Normal Lingual Movement: Normal, Symmetric Lingual Speed of Movement: Normal Lingual Movement Strgth Against Opposition: Normal Lingual Movement Characteristics: Normal Velopharyngeal Movement: Normal Laryngeal Elevation: WFL Laryngeal Movement: Able to Palpate Rate of Intake: WFL Bolus Size: WFL Labial Seal: WFL Chewing: WFL Oral Prep Time: WFL A-P Transit: WFL Pocketing: None Timing of Swallow: WFL Coughing/Throat Clear: No Change in Voice: No Recommendations - Speech Evaluation, Impression/Plan Impression: Pt with c/o dysphagia/phlegm. Reclines after eating. Drinks a lot of soda. r/o Laryngopharyngeal reflux/GERD - Disposition Discharge to: To be Determined - Dysphagia Impressions/Plan Dysphagia Impressions: Ongoing Evaluation *Silent aspiration: cannot be R/O at bedside Dysphagia Treatment Plan: OOB for meals, OOB for 1 h. after meals Recommendations: Modified Barium Swallow (ordered)
--- NOTE | 2018-10-31 13:21 | CONSULT ---
Consult Consult Specialty:: Nephrology Reason for Consultation:: azotemia - History of Present Illness Chief Complaint: shortness of breath History of Present Illness: Pt is a 53 year old female with pmhx of COPD, obesity, asthma, htn, andiety, HLD and depression who presents to the ER with shortness of breath. She also complains of lower ext edema. She was wheezing at the time as well. She was admitted and treated with steroids and lasix. I was called to evaluate her as her BUN is rising. She feels that her edema is improved. She denies history of ckd or CHF. She denies nsaid use. - History Source History Provided By: Patient, Medical Record - Past Medical History Cardio/Vascular: Yes: HTN Pulmonary: Yes: Bronchitis, COPD, O2 Dependent, Pneumonia, Other (emphysema) ...: No Psych: Yes: Anxiety, Depression - Past Surgical History Past Surgical History: Yes: Appendectomy - Alcohol/Substance Use Hx Alcohol Use: Yes - Smoking History Smoking history: Former smoker Have you smoked in the past 12 months: Yes Aproximately how many cigarettes per day: 5 If you are a former smoker, when did you quit?: 10/05/18 "35 days ago" - Social History Usual Living Arrangement: Shelter ADL: Independent Home Medications - Allergies Allergies/Adverse Reactions: Allergies Allergy/AdvReac Type Severity Reaction Status Date / Time No Known Allergies Allergy Verified 10/26/18 12:31 - Home Medications Home Medications: Ambulatory Orders Acetaminophen [Tylenol] 650 mg PO ASDIR 10/05/18 Albuterol 0.083% Nebulizer Jyoti [Ventolin 0.083% Nebulizer Soln -] 1 neb NEB QID 10/05/18 Albuterol 2.5/Ipratropium 0.5 [Duoneb -] 1 neb NEB Q4H 10/05/18 Budesonide/Formeterol Fumarate [SYMBICORT 160/4.5mcg -] 1 inh PO BID 10/05/18 Hydrochlorothiazide 12.5 mg PO DAILY 10/05/18 Labetalol HCl [Normodyne -] 100 mg PO BID 10/05/18 Mag Hydrox/Al Hydrox/Simeth [Mylanta Oral Suspension -] 1 dose PO ASDIR Melatonin 5 mg PO DAILY 10/05/18 Mirtazapine [Remeron -] 30 mg PO DAILY 10/05/18 Nifedipine [Procardia Xl] 30 mg PO DAILY 10/05/18 95/Iron Fum/Folic/Dha [ + Dha Combo Pack] 1 each PO DAILY 10/05 Sertraline HCl [Zoloft -] 50 mg PO DAILY 10/05/18 Thiamine HCl [B-1] 100 mg PO HS 10/05/18 traZODone HCL [Trazodone HCl] 100 mg PO ASDIR 10/05/18 Albuterol Sulfate Inhaler - [Ventolin HFA Inhaler -] 2 puff IH Q4H PRN 10/08/18 Simvastatin 20 mg PO HS 10/08/18 Aclidinium [place] [Tudorza Pressair] 400 mcg IH DAILY 10/12/18 Budesonide/Formeterol Fumarate [SYMBICORT 160/4.5mcg -] 2 puff IH BID inhaler 10/12/18 Nicotine Patch [Nicoderm Patch -] 21 mg TD DAILY patch 10/12/18 Nystatin Oral Suspension - [Nystatin Oral Susp 588191 Units/5 ML -] 500,000 units PO Q6HPO cup 10/12/18 Ranitidine [Zantac -] 150 mg PO BID tablet 10/12/18 Sodium Chloride Nasal [place] [[place] Nasal [place] -] 2 spray NS BID spray Family Disease History - Family Disease History Family Disease History: Heart Disease: Father (HTN, ), Mother Review of Systems - Review of Systems Constitutional: reports: Malaise. denies: Chills, Fever Eyes: reports: No Symptoms HENT: reports: No Symptoms Neck: reports: No Symptoms Cardiovascular: reports: Edema, Shortness of Breath Respiratory: reports: Cough, SOB, SOB on Exertion, Wheezing Gastrointestinal: reports: No Symptoms Genitourinary: reports: No Symptoms Musculoskeletal: reports: No Symptoms Integumentary: reports: No Symptoms Neurological: reports: No Symptoms Endocrine: reports: No Symptoms Hematology/Lymphatic: reports: No Symptoms Psychiatric: reports: No Symptoms Physical Exam Vital Signs: Vital Signs Temperature 98 F 10/31/18 11:52 Pulse Rate 91 H 10/31/18 11:52 Respiratory Rate 22 H 10/31/18 11:52 Blood Pressure 139/69 10/31/18 11:52 O2 Sat by Pulse Oximetry (%) 98 10/31/18 09:00 Constitutional: Yes: Calm Eyes: Yes: Conjunctiva Clear HENT: Yes: Atraumatic Cardiovascular: Yes: S1, S2 Respiratory: Yes: On Nasal O2, Wheezes Gastrointestinal: Yes: Soft, Abdomen, Obese Renal/: Yes: WNL Musculoskeletal: Yes: WNL Edema: Yes Edema: LLE: Trace, RLE: Trace Neurological: Yes: Oriented Psychiatric: Yes: Oriented Labs: CBC, BMP 10/30/18 07:00 10/30/18 07:00 Laboratory Tests 10/26/18 10/26/18 10/27/18 13:30 14:55 07:50 Anion Gap BUN 18 29 H Albumin Urine Protein Negative Urine Blood Negative 10/30/18 07:00 Anion Gap 6 L BUN 32 H Albumin 3.2 L Urine Protein Urine Blood Imaging - Results Cat Scan: Report Reviewed Ultrasound: Report Reviewed Problem List - Problems (1) Azotemia Code(s): R79.89 - OTHER SPECIFIED ABNORMAL FINDINGS OF BLOOD CHEMISTRY (2) COPD exacerbation Code(s): J44.1 - CHRONIC OBSTRUCTIVE PULMONARY DISEASE W (ACUTE) EXACERBATION (3) Elevated BUN Code(s): R79.9 - ABNORMAL FINDING OF BLOOD CHEMISTRY, UNSPECIFIED Assessment/Plan Current Medications Generic Name Dose Route Start Last Admin Trade Name Freq PRN Reason Stop Dose Admin Acetaminophen 650 mg 10/27/18 20:36 10/30/18 10:10 Tylenol - PO 650 mg Q6H PRN Administration FEVER Al Hydroxide/Mg Hydroxide 30 ml 10/30/18 12:40 10/30/18 18:44 Mylanta Oral Suspension - PO 30 ml Q6H PRN Administration DYSPEPSIA Albuterol Sulfate 1 amp 10/26/18 20:41 10/31/18 06:25 Ventolin 0.083% Nebulizer Soln - NEB 1 amp Q6H PRN Administration WHEEZING Atorvastatin Calcium 10 mg 10/26/18 22:00 10/30/18 22:02 Lipitor - PO 10 mg HS BETH Administration Budesonide/Formoterol Fumarate 1 puff 10/26/18 22:00 10/31/18 11:41 Symbicort 160/4.5mcg - IH 1 puff BID BETH Administration Furosemide 40 mg 10/28/18 10:00 10/31/18 11:39 Lasix Injection - IVPUSH 40 mg DAILY BETH Administration Heparin Sodium (Porcine) 5,000 unit 10/27/18 06:00 10/31/18 05:32 Heparin - SQ 5,000 unit TID BETH Administration Labetalol HCl 100 mg 10/26/18 22:00 10/31/18 11:40 Normodyne - PO 100 mg BID BETH Administration Lisinopril 20 mg 10/26/18 22:00 10/31/18 11:40 Prinivil PO 20 mg BID BETH Administration Melatonin 5 mg 10/26/18 20:41 10/29/18 21:43 Melatonin PO 5 mg HS PRN Administration INSOMNIA Mirtazapine 30 mg 10/27/18 22:00 10/30/18 22:02 Remeron - PO 30 mg HS BETH Administration Multivitamins/Minerals/Vitamin C 1 tab 10/27/18 10:00 10/31/18 11:40 Tab-A-Vit - PO 1 tab DAILY BETH Administration Nicotine 21 mg 10/26/18 20:45 10/31/18 11:40 Nicoderm Patch - TD 21 mg DAILY BETH Administration Nystatin 500,000 units 10/27/18 00:00 10/31/18 11:40 Nystatin Oral Suspension - PO 500,000 units Q6HPO BETH Administration Pantoprazole Sodium 40 mg 10/31/18 10:00 10/31/18 11:40 Protonix - PO 40 mg DAILY BETH Administration Polyethylene Glycol 17 gm 10/31/18 10:00 10/31/18 11:42 Miralax (For Daily Use) - PO Not Given BID BETH Sertraline HCl 50 mg 10/26/18 22:00 10/31/18 11:40 Zoloft - PO 50 mg DAILY BETH Administration Sodium Chloride 2 spray 10/26/18 22:00 10/31/18 11:41 [place] Nasal [place] - NS 2 spray BID BETH Administration Thiamine HCl 100 mg 10/26/18 22:00 10/30/18 22:02 Vitamin B1 - PO 100 mg HS BETH Administration Tiotropium [place] 2 puff 10/27/18 10:00 10/31/18 11:41 Spiriva Respimat IH 2 puff DAILY BETH Administration Trazodone HCl 100 mg 10/26/18 22:00 10/30/18 22:02 Desyrel - PO 100 mg HS BETH Administration Impression 1. azotemia 2. htn 3. copdy 4. emphysema 5. depression 6. active smoker 7. 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
--- NOTE | 2018-10-31 13:25 | CON.CARD ---
Consult Consult Specialty:: cardiology Referred by:: Babs Reason for Consultation:: Shortness of breath - History of Present Illness Chief Complaint: Shortness of breath History of Present Illness: The patient is a 53-year-old female, who has been a heavy smoker for most of her life, crack cocaine abuser, hypertension, COPD, hyperlipidemia, asthma, anxiety, depression, now admitted with shortness of breath and progressive leg edema. Lower extremity Dopplers revealed no evidence of DVTs. Chest CT showed no pulmonary emboli. It revealed significant emphysema. The patient responded to diuretics. Leg edema improved. She is breathing more comfortably. - History Source History Provided By: Patient, Medical Record Limitations to Obtaining History: No Limitations - Past Medical History Cardio/Vascular: Yes: HTN Pulmonary: Yes: Bronchitis, COPD, O2 Dependent, Pneumonia. No: Pulmonary Embolus, Pulmonary Fibrosis, Sleep Apnea ...: No Psych: Yes: Anxiety, Depression - Past Surgical History Past Surgical History: Yes: Appendectomy - Alcohol/Substance Use Hx Alcohol Use: Yes - Smoking History Smoking history: Former smoker Have you smoked in the past 12 months: Yes Aproximately how many cigarettes per day: 5 If you are a former smoker, when did you quit?: 10/05/18 "35 days ago" - Social History Usual Living Arrangement: Assisted ADL: Independent Home Medications - Allergies Allergies/Adverse Reactions: Allergies Allergy/AdvReac Type Severity Reaction Status Date / Time No Known Allergies Allergy Verified 10/26/18 12:31 - Home Medications Home Medications: Ambulatory Orders Acetaminophen [Tylenol] 650 mg PO ASDIR 10/05/18 Albuterol 0.083% Nebulizer Jyoti [Ventolin 0.083% Nebulizer Soln -] 1 neb NEB QID 10/05/18 Albuterol 2.5/Ipratropium 0.5 [Duoneb -] 1 neb NEB Q4H 10/05/18 Budesonide/Formeterol Fumarate [SYMBICORT 160/4.5mcg -] 1 inh PO BID 10/05/18 Hydrochlorothiazide 12.5 mg PO DAILY 10/05/18 Labetalol HCl [Normodyne -] 100 mg PO BID 10/05/18 Mag Hydrox/Al Hydrox/Simeth [Mylanta Oral Suspension -] 1 dose PO ASDIR Melatonin 5 mg PO DAILY 10/05/18 Mirtazapine [Remeron -] 30 mg PO DAILY 10/05/18 Nifedipine [Procardia Xl] 30 mg PO DAILY 10/05/18 95/Iron Fum/Folic/Dha [ + Dha Combo Pack] 1 each PO DAILY 10/05 Sertraline HCl [Zoloft -] 50 mg PO DAILY 10/05/18 Thiamine HCl [B-1] 100 mg PO HS 10/05/18 traZODone HCL [Trazodone HCl] 100 mg PO ASDIR 10/05/18 Albuterol Sulfate Inhaler - [Ventolin HFA Inhaler -] 2 puff IH Q4H PRN 10/08/18 Simvastatin 20 mg PO HS 10/08/18 Aclidinium [place] [Tudorza [place]] 400 mcg IH DAILY 10/12/18 Budesonide/Formeterol Fumarate [SYMBICORT 160/4.5mcg -] 2 puff IH BID inhaler 10/12/18 Nicotine Patch [Nicoderm Patch -] 21 mg TD DAILY patch 10/12/18 Nystatin Oral Suspension - [Nystatin Oral Susp 735082 Units/5 ML -] 500,000 units PO Q6HPO cup 10/12/18 Ranitidine [Zantac -] 150 mg PO BID tablet 10/12/18 Sodium Chloride Nasal [place] [[place] Nasal [place] -] 2 spray NS BID spray Family Disease History - Family Disease History Family Disease History: Heart Disease: Father (HTN, ), Mother Review of Systems - Review of Systems Constitutional: reports: Malaise Eyes: reports: No Symptoms HENT: reports: No Symptoms Neck: reports: No Symptoms Cardiovascular: reports: Shortness of Breath Respiratory: reports: Cough, SOB Gastrointestinal: reports: No Symptoms Genitourinary: reports: No Symptoms Breasts: reports: No Symptoms Reported Musculoskeletal: reports: No Symptoms Integumentary: reports: No Symptoms Neurological: reports: No Symptoms Endocrine: reports: No Symptoms Hematology/Lymphatic: reports: No Symptoms Psychiatric: reports: No Symptoms Vital Signs: Vital Signs Temperature 98 F 10/31/18 11:52 Pulse Rate 91 H 10/31/18 11:52 Respiratory Rate 22 H 10/31/18 11:52 Blood Pressure 139/69 10/31/18 11:52 O2 Sat by Pulse Oximetry (%) 98 10/31/18 09:00 Constitutional: Yes: Well Nourished, No Distress Eyes: Yes: WNL, Conjunctiva Clear, EOM Intact HENT: Yes: WNL, Atraumatic, Normocephalic Neck: Yes: WNL, Supple, Trachea Midline Respiratory: Yes: Accessory Muscle Use, Cough, On Nasal O2, Poor Air Entry Gastrointestinal: Yes: WNL, Normal Bowel Sounds, Soft Renal/: Yes: WNL Cardiovascular: Yes: WNL, Regular Rate and Rhythm, Tachycardia Heart Sounds: Yes: S1, S2 Murmur: Yes: Systolic Murmur, Grade 2 Musculoskeletal: Yes: WNL Extremities: Yes: WNL Edema: LLE: Trace, RLE: Trace Peripheral Pulses: 2+ Left Carotid, 2+ Right Carotid, 2+ Left Femoral, 2+ Right Femoral, 2+ Left Popliteal, 2+ Right Popliteal, 2+ Left Doralis Pedis, 2+ Right Dorsalis Pedis Integumentary: Yes: WNL Neurological: Yes: WNL, Alert, Oriented ...Motor Strength: WNL - Other Data Labs, Other Data: CBC, BMP 10/30/18 07:00 10/30/18 07:00 Assessment/Plan The patient is a 53-year-old female, who has been a heavy smoker for most of her life, crack cocaine abuser, hypertension, COPD, hyperlipidemia, asthma, anxiety, depression, now admitted with shortness of breath and progressive leg edema. Lower extremity Dopplers revealed no evidence of DVTs. Chest CT showed no pulmonary emboli. It revealed significant emphysema. The patient responded to diuretics. Leg edema improved. She is breathing more comfortably. There is no evidence of ischemia nor acute coronary syndrome. No CHF. No clinically important arrhythmias documented at this point. Only sinus tachycardia, which is appropriate in this setting. Continue oxygen as currently. Pulmonary toilet. Please arrange for an echocardiogram. No need for cardiac monitoring. We'll follow results.
[2018-10-31] MEDS ORDERED: traZODone HCL 50 MG TABLET (FP) ONE (20:44)
[2018-10-31] MEDS: MIRTAZAPINE 15 MG TABLET (FP) PO SCH (21:34)
[2018-10-31] MEDS: MELATONIN 5 MG TABLETS PO PRN (21:34)
[2018-10-31] MEDS: ATORVASTATIN CA 10 MG TABLET (FP) PO SCH (21:34)
[2018-10-31] MEDS: THIAMINE HCL 100 MG TABLET (FP) PO SCH (21:34)
[2018-10-31] MEDS: traZODone HCL 100 MG TABLET (FP) PO SCH (21:35)
[2018-11-01] MEDS: NYSTATIN 500,000 UNITS/5 ML SUSPENSION PO SCH ×6 (00:20→23:47)
[2018-11-01] MEDS: HEPARIN NA (PORCINE) 5,000 UNITS/ML 1ML VIAL SQ SCH ×4 (05:55→22:20)
[2018-11-01] MEDS ORDERED: ALBUTEROL SO4 2.5/IPRATROPIUM 0.5 INH SOL 3 ML VIAL.NEB. NEB ONE (08:37)
[2018-11-01] MEDS: ALBUTEROL SO4 2.5/IPRATROPIUM 0.5 INH SOL 3 ML VIAL.NEB. NEB SCH ×4 (08:45→20:37)
[2018-11-01] MEDS ORDERED: PT OWN MED DRAWER 7, Y5N ONE (09:17)
[2018-11-01] MEDS: FUROSEMIDE 40 MG/4 ML INJECTABLE VIAL IVPUSH SCH (10:49)
[2018-11-01] MEDS: NICOTINE 21 MG/24 HOURS TOPICAL PATCH TD SCH (10:51)
[2018-11-01] MEDS: LISINOPRIL 20 MG TABLET (FP) PO SCH ×2 (10:53→22:09)
[2018-11-01] MEDS: MULTIVITAMINS (DAILY MVI) TABLET (FP) PO SCH (10:53)
[2018-11-01] MEDS: LABETALOL HCL 100 MG TABLET (FP) PO SCH ×2 (10:53→22:09)
[2018-11-01] MEDS: PANTOPRAZOLE 40 MG TABLET (FP) PO SCH (10:54)
[2018-11-01] MEDS: SERTRALINE HCL 50 MG TABLET (FP) PO SCH (10:54)
[2018-11-01] MEDS: BUDESONIDE/FORMETEROL FUMARATE 160/4.5 mcg INHALER IH SCH ×3 (10:55→22:09)
[2018-11-01] MEDS: TIOTROPIUM BROMIDE 2.5 MCG (SPIRIVA) RESPIMAT INHALER IH SCH (10:55)
[2018-11-01] MEDS: SODIUM CHLORIDE NASAL SPRAY 44 ML BOTTLE NS SCH ×2 (10:55→22:09)
[2018-11-01] MEDS: POLYETHYLENE GLYCOL 3350 119 GM BTL PO SCH ×2 (11:05→22:08)
--- NOTE | 2018-11-01 11:23 | PN ---
Progress Note, Physician Chief Complaint: patient came in for shortness of breath and leg swelling leg swelliing improved echo ordered - Current Medication List Current Medications: Active Medications Acetaminophen (Tylenol -) 650 mg PO Q6H PRN PRN Reason: FEVER Last Admin: 10/30/18 10:10 Dose: 650 mg Al Hydroxide/Mg Hydroxide (Mylanta Oral Suspension -) 30 ml PO Q6H PRN PRN Reason: DYSPEPSIA Last Admin: 10/30/18 18:44 Dose: 30 ml Albuterol Sulfate (Ventolin Hfa Inhaler -) 2 puff IH Q4H PRN PRN Reason: SHORT OF BREATH/WHEEZING Albuterol/Ipratropium (Duoneb -) 1 amp NEB QIDR [facility] Last Admin: 11/01/18 08:45 Dose: 1 amp Atorvastatin Calcium (Lipitor -) 10 mg PO HS [facility] Last Admin: 10/31/18 21:34 Dose: 10 mg Budesonide/Formoterol Fumarate (Symbicort 160/4.5mcg -) 1 puff IH BID [facility] Last Admin: 11/01/18 10:55 Dose: 1 puff Furosemide (Lasix -) 40 mg PO DAILY [facility] Heparin Sodium (Porcine) (Heparin -) 5,000 unit SQ TID [facility] Last Admin: 11/01/18 05:55 Dose: Not Given Labetalol HCl (Normodyne -) 100 mg PO BID [facility] Last Admin: 11/01/18 10:53 Dose: 100 mg Lisinopril (Prinivil) 20 mg PO BID [facility] Last Admin: 11/01/18 10:53 Dose: 20 mg Melatonin (Melatonin) 5 mg PO HS PRN PRN Reason: INSOMNIA Last Admin: 10/31/18 21:34 Dose: 5 mg Mirtazapine (Remeron -) 30 mg PO HS [facility] Last Admin: 10/31/18 21:34 Dose: 30 mg Multivitamins/Minerals/Vitamin C (Tab-A-Vit -) 1 tab PO DAILY [facility] Last Admin: 11/01/18 10:53 Dose: 1 tab Nicotine (Nicoderm Patch -) 21 mg TD DAILY [facility] Last Admin: 11/01/18 10:51 Dose: Not Given Nystatin (Nystatin Oral Suspension -) 500,000 units PO Q6HPO [facility] Last Admin: 11/01/18 06:56 Dose: Not Given Pantoprazole Sodium (Protonix -) 40 mg PO DAILY [facility] Last Admin: 11/01/18 10:54 Dose: 40 mg Polyethylene Glycol (Miralax (For Daily Use) -) 17 gm PO BID [facility] Last Admin: 11/01/18 11:05 Dose: Not Given Sertraline HCl (Zoloft -) 50 mg PO DAILY [facility] Last Admin: 11/01/18 10:54 Dose: 50 mg Sodium Chloride ([place] Nasal [place] -) 2 spray NS BID [facility] Last Admin: 11/01/18 10:55 Dose: 2 spray Thiamine HCl (Vitamin B1 -) 100 mg PO HS [facility] Last Admin: 10/31/18 21:34 Dose: 100 mg Tiotropium [place] (Spiriva Respimat) 2 puff IH DAILY [facility] Last Admin: 11/01/18 10:55 Dose: 2 puff Trazodone HCl (Desyrel -) 100 mg PO HS [facility] Last Admin: 10/31/18 21:35 Dose: 100 mg - Objective Vital Signs: Vital Signs Temperature 97.9 F 11/01/18 09:00 Pulse Rate 92 H 11/01/18 09:00 Respiratory Rate 18 11/01/18 09:00 Blood Pressure 102/66 11/01/18 09:00 O2 Sat by Pulse Oximetry (%) 98 10/31/18 21:00 Constitutional: Yes: Calm Cardiovascular: Yes: Regular Rate and Rhythm, S1, S2 Respiratory: Yes: CTA Bilaterally Gastrointestinal: Yes: Normal Bowel Sounds, Soft Edema: No Neurological: Yes: Alert, Oriented Labs: CBC, BMP 10/30/18 07:00 10/30/18 07:00 Problem List - Problems (1) Azotemia Assessment/Plan: renal on board Code(s): R79.89 - OTHER SPECIFIED ABNORMAL FINDINGS OF BLOOD CHEMISTRY (2) CHF (congestive heart failure) Assessment/Plan: appreciate cardiology consult ordered echo change lasix to po Code(s): I50.9 - HEART FAILURE, UNSPECIFIED (3) COPD exacerbation Assessment/Plan: oxygen bronchodilators Code(s): J44.1 - CHRONIC OBSTRUCTIVE PULMONARY DISEASE W (ACUTE) EXACERBATION (4) Dysphagia Assessment/Plan: barium series done gi onboard [facility] saw patient Code(s): R13.10 - DYSPHAGIA, UNSPECIFIED
--- NOTE | 2018-11-01 12:17 | PN ---
Progress Note (short form) - Note Progress Note: Breathing feels better overall. Improving peripheral edema. No CP. Intake & Output 10/29/18 10/30/18 10/31/18 11/01/18 23:59 23:59 23:59 23:59 Intake Total 1650 585 575 365 Balance 1650 585 575 365 Weight 211 lb 2 oz 210 lb 11.2 oz 210 lb 12.8 oz 211 lb 1.6 oz Last Vital Signs Temp Pulse Resp BP Pulse Ox 97.9 F 92 H 18 102/66 98 11/01/18 09:00 11/01/18 09:00 11/01/18 09:00 11/01/18 09:00 10/31/18 21:00 Active Medications Acetaminophen (Tylenol -) 650 mg PO Q6H PRN PRN Reason: FEVER Last Admin: 10/30/18 10:10 Dose: 650 mg Al Hydroxide/Mg Hydroxide (Mylanta Oral Suspension -) 30 ml PO Q6H PRN PRN Reason: DYSPEPSIA Last Admin: 10/30/18 18:44 Dose: 30 ml Albuterol Sulfate (Ventolin Hfa Inhaler -) 2 puff IH Q4H PRN PRN Reason: SHORT OF BREATH/WHEEZING Albuterol/Ipratropium (Duoneb -) 1 amp NEB QIDR [facility] Last Admin: 11/01/18 11:45 Dose: 1 amp Atorvastatin Calcium (Lipitor -) 10 mg PO HS [facility] Last Admin: 10/31/18 21:34 Dose: 10 mg Budesonide/Formoterol Fumarate (Symbicort 160/4.5mcg -) 1 puff IH BID [facility] Last Admin: 11/01/18 10:55 Dose: 1 puff Furosemide (Lasix -) 40 mg PO DAILY [facility] Heparin Sodium (Porcine) (Heparin -) 5,000 unit SQ TID [facility] Last Admin: 11/01/18 05:55 Dose: Not Given Labetalol HCl (Normodyne -) 100 mg PO BID [facility] Last Admin: 11/01/18 10:53 Dose: 100 mg Lisinopril (Prinivil) 20 mg PO BID [facility] Last Admin: 11/01/18 10:53 Dose: 20 mg Melatonin (Melatonin) 5 mg PO HS PRN PRN Reason: INSOMNIA Last Admin: 10/31/18 21:34 Dose: 5 mg Mirtazapine (Remeron -) 30 mg PO [facility] Last Admin: 10/31/18 21:34 Dose: 30 mg Multivitamins/Minerals/Vitamin C (Tab-A-Vit -) 1 tab PO DAILY [facility] Last Admin: 11/01/18 10:53 Dose: 1 tab Nicotine (Nicoderm Patch -) 21 mg TD DAILY [facility] Last Admin: 11/01/18 10:51 Dose: Not Given Nystatin (Nystatin Oral Suspension -) 500,000 units PO Q6HPO [facility] Last Admin: 11/01/18 06:56 Dose: Not Given Pantoprazole Sodium (Protonix -) 40 mg PO DAILY [facility] Last Admin: 11/01/18 10:54 Dose: 40 mg Polyethylene Glycol (Miralax (For Daily Use) -) 17 gm PO BID [facility] Last Admin: 11/01/18 11:05 Dose: Not Given Sertraline HCl (Zoloft -) 50 mg PO DAILY [facility] Last Admin: 11/01/18 10:54 Dose: 50 mg Sodium Chloride ([place] Nasal [place] -) 2 spray NS BID [facility] Last Admin: 11/01/18 10:55 Dose: 2 spray Thiamine HCl (Vitamin B1 -) 100 mg PO [facility] Last Admin: 10/31/18 21:34 Dose: 100 mg Tiotropium [place] (Spiriva Respimat) 2 puff IH DAILY [facility] Last Admin: 11/01/18 10:55 Dose: 2 puff Trazodone HCl (Desyrel -) 100 mg PO [facility] Last Admin: 10/31/18 21:35 Dose: 100 mg Constitutional: Yes: No Distress, Calm Eyes: Yes: Conjunctiva Clear, EOM Intact HENT: Yes: Atraumatic, Normocephalic Neck: Yes: Supple, Trachea Midline Cardiovascular: Yes: Regular Rate and Rhythm Respiratory: Yes: Cough, Diminished, On Nasal O2. No: Accessory Muscle Use, Stridor, Wheezes ...Inspection: Yes: WNL ...Clubbing: No Gastrointestinal: Yes: Normal Bowel Sounds, Soft, Abdomen, Obese Renal/: Yes: WNL Musculoskeletal: Yes: WNL Extremities: Yes: WNL Edema: Yes Peripheral Pulses WNL: Yes Integumentary: Yes: WNL Neurological: Yes: WNL, Alert, Oriented ...Motor Strength: WNL Psychiatric: Yes: WNL, Alert, Oriented Labs: Problem List - Problems (1) Bronchiectasis Code(s): J47.9 - BRONCHIECTASIS, UNCOMPLICATED (2) Emphysema of lung Code(s): J43.9 - EMPHYSEMA, UNSPECIFIED (3) Anasarca Code(s): R60.1 - GENERALIZED EDEMA (4) SOB (shortness of breath) Code(s): R06.02 - SHORTNESS OF BREATH (5) Anxiety Code(s): F41.9 - ANXIETY DISORDER, UNSPECIFIED (6) Nicotine dependence Code(s): F17.200 - NICOTINE DEPENDENCE, UNSPECIFIED, UNCOMPLICATED (7) COPD (chronic obstructive pulmonary disease) Code(s): J44.9 - CHRONIC OBSTRUCTIVE PULMONARY DISEASE, UNSPECIFIED Qualifiers: COPD type: unspecified COPD Qualified Code(s): J44.9 - Chronic obstructive pulmonary disease, unspecified (8) Hypercholesterolemia Code(s): E78.00 - PURE HYPERCHOLESTEROLEMIA, UNSPECIFIED (9) Hypertension Code(s): I10 - ESSENTIAL (PRIMARY) HYPERTENSION Qualifiers: Hypertension type: essential hypertension Qualified Code(s): I10 - Essential (primary) hypertension Assessment/Plan Continue to monitor off ABX Monitor off Systemic steroids BD TX PRN Symbicort BID Spiriva OD: avoid LAMA & OMA O2 No smoking Lasix No Pulmonary contraindication for D/C planning Dr Carrera Problem List - Problems (1) Bronchiectasis Code(s): J47.9 - BRONCHIECTASIS, UNCOMPLICATED (2) Emphysema of lung Code(s): J43.9 - EMPHYSEMA, UNSPECIFIED (3) Anasarca Code(s): R60.1 - GENERALIZED EDEMA (4) SOB (shortness of breath) Code(s): R06.02 - SHORTNESS OF BREATH (5) Anxiety Code(s): F41.9 - ANXIETY DISORDER, UNSPECIFIED (6) Nicotine dependence Code(s): F17.200 - NICOTINE DEPENDENCE, UNSPECIFIED, UNCOMPLICATED (7) COPD (chronic obstructive pulmonary disease) Code(s): J44.9 - CHRONIC OBSTRUCTIVE PULMONARY DISEASE, UNSPECIFIED Qualifiers: COPD type: unspecified COPD Qualified Code(s): J44.9 - Chronic obstructive pulmonary disease, unspecified (8) Hypercholesterolemia Code(s): E78.00 - PURE HYPERCHOLESTEROLEMIA, UNSPECIFIED (9) Hypertension Code(s): I10 - ESSENTIAL (PRIMARY) HYPERTENSION Qualifiers: Hypertension type: essential hypertension Qualified Code(s): I10 - Essential (primary) hypertension
--- NOTE | 2018-11-01 14:01 | PN ---
Progress Note, Physician Chief Complaint: Shortness of breath History of Present Illness: The patient is a 53-year-old female, who has been a heavy smoker for most of her life, crack cocaine abuser, hypertension, COPD, hyperlipidemia, asthma, anxiety, depression, now admitted with shortness of breath and progressive leg edema. Lower extremity Dopplers revealed no evidence of DVTs. Chest CT showed no pulmonary emboli. It revealed significant emphysema. The patient responded to diuretics. Leg edema improved. She is breathing more comfortably. There is no evidence of ischemia nor acute coronary syndrome. No CHF. No clinically important arrhythmias documented at this point. Only sinus tachycardia, which is appropriate in this setting. - Current Medication List Current Medications: Active Medications Acetaminophen (Tylenol -) 650 mg PO Q6H PRN PRN Reason: FEVER Last Admin: 10/30/18 10:10 Dose: 650 mg Al Hydroxide/Mg Hydroxide (Mylanta Oral Suspension -) 30 ml PO Q6H PRN PRN Reason: DYSPEPSIA Last Admin: 10/30/18 18:44 Dose: 30 ml Albuterol Sulfate (Ventolin Hfa Inhaler -) 2 puff IH Q4H PRN PRN Reason: SHORT OF BREATH/WHEEZING Albuterol/Ipratropium (Duoneb -) 1 amp NEB QIDR [facility] Last Admin: 11/01/18 11:45 Dose: 1 amp Atorvastatin Calcium (Lipitor -) 10 mg PO HS [facility] Last Admin: 10/31/18 21:34 Dose: 10 mg Budesonide/Formoterol Fumarate (Symbicort 160/4.5mcg -) 2 puff IH BID [facility] Last Admin: 11/01/18 13:17 Dose: 1 puff Furosemide (Lasix -) 40 mg PO DAILY [facility] Heparin Sodium (Porcine) (Heparin -) 5,000 unit SQ TID [facility] Last Admin: 11/01/18 13:18 Dose: Not Given Labetalol HCl (Normodyne -) 100 mg PO BID [facility] Last Admin: 11/01/18 10:53 Dose: 100 mg Lisinopril (Prinivil) 20 mg PO BID [facility] Last Admin: 11/01/18 10:53 Dose: 20 mg Melatonin (Melatonin) 5 mg PO HS PRN PRN Reason: INSOMNIA Last Admin: 10/31/18 21:34 Dose: 5 mg Mirtazapine (Remeron -) 30 mg PO HS [facility] Last Admin: 10/31/18 21:34 Dose: 30 mg Multivitamins/Minerals/Vitamin C (Tab-A-Vit -) 1 tab PO DAILY [facility] Last Admin: 11/01/18 10:53 Dose: 1 tab Nicotine (Nicoderm Patch -) 21 mg TD DAILY [facility] Last Admin: 11/01/18 10:51 Dose: Not Given Nystatin (Nystatin Oral Suspension -) 500,000 units PO Q6HPO [facility] Last Admin: 11/01/18 13:17 Dose: 500,000 units Pantoprazole Sodium (Protonix -) 40 mg PO DAILY [facility] Last Admin: 11/01/18 10:54 Dose: 40 mg Polyethylene Glycol (Miralax (For Daily Use) -) 17 gm PO BID [facility] Last Admin: 11/01/18 11:05 Dose: Not Given Sertraline HCl (Zoloft -) 50 mg PO DAILY [facility] Last Admin: 11/01/18 10:54 Dose: 50 mg Sodium Chloride ([place] Nasal [place] -) 2 spray NS BID [facility] Last Admin: 11/01/18 10:55 Dose: 2 spray Thiamine HCl (Vitamin B1 -) 100 mg PO HS [facility] Last Admin: 10/31/18 21:34 Dose: 100 mg Tiotropium [place] (Spiriva Respimat) 2 puff IH DAILY [facility] Last Admin: 11/01/18 10:55 Dose: 2 puff Trazodone HCl (Desyrel -) 100 mg PO [facility] Last Admin: 10/31/18 21:35 Dose: 100 mg - Objective Vital Signs: Vital Signs Temperature 97.9 F 11/01/18 09:00 Pulse Rate 92 H 11/01/18 09:00 Respiratory Rate 18 11/01/18 09:00 Blood Pressure 102/66 11/01/18 09:00 O2 Sat by Pulse Oximetry (%) 98 10/31/18 21:00 Constitutional: Yes: Well Nourished, No Distress, Calm Eyes: Yes: WNL, Conjunctiva Clear, EOM Intact HENT: Yes: WNL, Atraumatic, Normocephalic Neck: Yes: WNL, Supple, Trachea Midline Cardiovascular: Yes: WNL, Regular Rate and Rhythm Respiratory: Yes: Regular (Course breath sounds bilaterally with distant breath sounds. No rales/wheezes) Gastrointestinal: Yes: WNL, Normal Bowel Sounds, Soft ...Rectal Exam: Yes: Deferred Musculoskeletal: Yes: WNL Extremities: Yes: WNL Edema: No Peripheral Pulses: Left Femoral: 1+, Right Femoral: 1+ Integumentary: Yes: WNL Neurological: Yes: WNL ...Motor Strength: WNL Psychiatric: Yes: WNL Labs: CBC, BMP 10/30/18 07:00 10/30/18 07:00 Assessment/Plan The patient is a 53-year-old female, who has been a heavy smoker for most of her life, crack cocaine abuser, hypertension, COPD, hyperlipidemia, asthma, anxiety, depression, now admitted with shortness of breath and progressive leg edema. Lower extremity Dopplers revealed no evidence of DVTs. Chest CT showed no pulmonary emboli. It revealed significant emphysema. The patient responded to diuretics. Leg edema improved. She is breathing more comfortably. There is no evidence of ischemia nor acute coronary syndrome. No CHF. No clinically important arrhythmias documented at this point. Only sinus tachycardia, which is appropriate in this setting.. The patient remains stable from the cardiac standpoint. Her dyspnea improved. She reports no chest pains. Edema essentially resolved. The echocardiogram was not performed. There is no need for further cardiac testing at this point. The echocardiogram may be performed as outpatient. Please arrange for a consultation appointment with soon as possible after discharge. No need for further inpatient workup at this point. Please do not hesitate to call us PRN.
[2018-11-01 14:30] VITALS: BMI 35.1
--- NOTE | 2018-11-01 15:38 | PN ---
Progress Note, MANAGER ENROLLMENT - Note Progress Note: Selected Entries 11/01/18 11/01/18 11/01/18 02:00 05:53 09:00 Breakfast Lunch Temperature 97.9 F 98.0 F 97.9 F 11/01/18 11/01/18 09:38 14:02 Breakfast 100% Lunch 100% Temperature 97.5 F L UGI noted. mbs and LPR/GERD handout precautions given to pt on 10/31/18.
--- NOTE | 2018-11-01 15:51 | PN ---
Progress Note, Physician History of Present Illness: Pt seen and examined at bedside. She feels that her breathing is improved. She denies dysuria. - Current Medication List Current Medications: Active Medications Acetaminophen (Tylenol -) 650 mg PO Q6H PRN PRN Reason: FEVER Last Admin: 10/30/18 10:10 Dose: 650 mg Al Hydroxide/Mg Hydroxide (Mylanta Oral Suspension -) 30 ml PO Q6H PRN PRN Reason: DYSPEPSIA Last Admin: 10/30/18 18:44 Dose: 30 ml Albuterol Sulfate (Ventolin Hfa Inhaler -) 2 puff IH Q4H PRN PRN Reason: SHORT OF BREATH/WHEEZING Albuterol/Ipratropium (Duoneb -) 1 amp NEB QIDR [facility] Last Admin: 11/01/18 11:45 Dose: 1 amp Atorvastatin Calcium (Lipitor -) 10 mg PO HS [facility] Last Admin: 10/31/18 21:34 Dose: 10 mg Budesonide/Formoterol Fumarate (Symbicort 160/4.5mcg -) 2 puff IH BID [facility] Last Admin: 11/01/18 13:17 Dose: 1 puff Furosemide (Lasix -) 40 mg PO DAILY [facility] Heparin Sodium (Porcine) (Heparin -) 5,000 unit SQ TID [facility] Last Admin: 11/01/18 13:18 Dose: Not Given Labetalol HCl (Normodyne -) 100 mg PO BID [facility] Last Admin: 11/01/18 10:53 Dose: 100 mg Lisinopril (Prinivil) 20 mg PO BID [facility] Last Admin: 11/01/18 10:53 Dose: 20 mg Melatonin (Melatonin) 5 mg PO HS PRN PRN Reason: INSOMNIA Last Admin: 10/31/18 21:34 Dose: 5 mg Mirtazapine (Remeron -) 30 mg PO HS [facility] Last Admin: 10/31/18 21:34 Dose: 30 mg Multivitamins/Minerals/Vitamin C (Tab-A-Vit -) 1 tab PO DAILY [facility] Last Admin: 11/01/18 10:53 Dose: 1 tab Nicotine (Nicoderm Patch -) 21 mg TD DAILY [facility] Last Admin: 11/01/18 10:51 Dose: Not Given Nystatin (Nystatin Oral Suspension -) 500,000 units PO Q6HPO [facility] Last Admin: 11/01/18 13:17 Dose: 500,000 units Pantoprazole Sodium (Protonix -) 40 mg PO DAILY [facility] Last Admin: 11/01/18 10:54 Dose: 40 mg Polyethylene Glycol (Miralax (For Daily Use) -) 17 gm PO BID [facility] Last Admin: 11/01/18 11:05 Dose: Not Given Sertraline HCl (Zoloft -) 50 mg PO DAILY [facility] Last Admin: 11/01/18 10:54 Dose: 50 mg Sodium Chloride ([place] Nasal [place] -) 2 spray NS BID [facility] Last Admin: 11/01/18 10:55 Dose: 2 spray Thiamine HCl (Vitamin B1 -) 100 mg PO [facility] Last Admin: 10/31/18 21:34 Dose: 100 mg Tiotropium [place] (Spiriva Respimat) 2 puff IH DAILY [facility] Last Admin: 11/01/18 10:55 Dose: 2 puff Trazodone HCl (Desyrel -) 100 mg PO [facility] Last Admin: 10/31/18 21:35 Dose: 100 mg - Objective Vital Signs: Vital Signs Temperature 97.5 F L 11/01/18 14:02 Pulse Rate 100 H 11/01/18 14:02 Respiratory Rate 24 H 11/01/18 14:02 Blood Pressure 101/54 L 11/01/18 14:02 O2 Sat by Pulse Oximetry (%) 97 11/01/18 09:00 Constitutional: Yes: Calm Eyes: Yes: Conjunctiva Clear HENT: Yes: Atraumatic Neck: Yes: Supple Cardiovascular: Yes: S1, S2 Respiratory: Yes: On Nasal O2 Gastrointestinal: Yes: Soft, Abdomen, Obese Genitourinary: Yes: WNL Musculoskeletal: Yes: WNL Edema: No Neurological: Yes: Oriented Psychiatric: Yes: Oriented Labs: CBC, BMP 10/30/18 07:00 10/30/18 07:00 Problem List - Problems (1) Azotemia Code(s): R79.89 - OTHER SPECIFIED ABNORMAL FINDINGS OF BLOOD CHEMISTRY (2) COPD exacerbation Code(s): J44.1 - CHRONIC OBSTRUCTIVE PULMONARY DISEASE W (ACUTE) EXACERBATION (3) Elevated BUN Code(s): R79.9 - ABNORMAL FINDING OF BLOOD CHEMISTRY, UNSPECIFIED Assessment/Plan Current Medications Generic Name Dose Route Start Last Admin Trade Name Freq PRN Reason Stop Dose Admin Acetaminophen 650 mg 10/27/18 20:36 02/05/19 10:10 Tylenol - PO 650 mg Q6H PRN Administration FEVER Al Hydroxide/Mg Hydroxide 30 ml 10/30/18 12:40 10/30/18 18:44 Mylanta Oral Suspension - PO 30 ml Q6H PRN Administration DYSPEPSIA Albuterol Sulfate 2 puff 11/01/18 04:12 Ventolin Hfa Inhaler - IH Q4H PRN SHORT OF BREATH/WHEEZING Albuterol/Ipratropium 1 amp 11/01/18 12:00 11/01/18 11:45 Duoneb - NEB 1 amp QIDR [facility] Administration Atorvastatin Calcium 10 mg 10/26/18 22:00 10/31/18 21:34 Lipitor - PO 10 mg HS [facility] Administration Budesonide/Formoterol Fumarate 2 puff 11/01/18 13:00 11/01/18 13:17 Symbicort 160/4.5mcg - IH 1 puff BID [facility] Administration Furosemide 40 mg 11/02/18 10:00 Lasix - PO DAILY [facility] Heparin Sodium (Porcine) 5,000 unit 10/27/18 06:00 11/01/18 13:18 Heparin - SQ Not Given TID [facility] Labetalol HCl 100 mg 10/26/18 22:00 11/01/18 10:53 Normodyne - PO 100 mg BID [facility] Administration Lisinopril 20 mg 10/26/18 22:00 11/01/18 10:53 Prinivil PO 20 mg BID [facility] Administration Melatonin 5 mg 10/26/18 20:41 10/31/18 21:34 Melatonin PO 5 mg HS PRN Administration INSOMNIA Mirtazapine 30 mg 10/27/18 22:00 10/31/18 21:34 Remeron - PO 30 mg HS [facility] Administration Multivitamins/Minerals/Vitamin C 1 tab 10/27/18 10:00 11/01/18 10:53 Tab-A-Vit - PO 1 tab DAILY [facility] Administration Nicotine 21 mg 10/26/18 20:45 11/01/18 10:51 Nicoderm Patch - TD Not Given DAILY [facility] Nystatin 500,000 units 10/27/18 00:00 11/01/18 13:17 Nystatin Oral Suspension - PO 500,000 units Q6HPO [facility] Administration Pantoprazole Sodium 40 mg 10/31/18 10:00 11/01/18 10:54 Protonix - PO 40 mg DAILY [facility] Administration Polyethylene Glycol 17 gm 10/31/18 10:00 11/01/18 11:05 Miralax (For Daily Use) - PO Not Given BID [facility] Sertraline HCl 50 mg 10/26/18 22:00 11/01/18 10:54 Zoloft - PO 50 mg DAILY [facility] Administration Sodium Chloride 2 spray 10/26/18 22:00 11/01/18 10:55 [place] Nasal [place] - NS 2 spray BID [facility] Administration Thiamine HCl 100 mg 10/26/18 22:00 10/31/18 21:34 Vitamin B1 - PO 100 mg HS [facility] Administration Tiotropium [place] 2 puff 10/27/18 10:00 11/01/18 10:55 Spiriva Respimat IH 2 puff DAILY [facility] Administration Trazodone HCl 100 mg 10/26/18 22:00 10/31/18 21:35 Desyrel - PO 100 mg HS [facility] Administration Impression 1. azotemia 2. htn 3. copd 4. emphysema 5. depression 6. active smoker 7. hld Plan - check bmp - switch lasix to PO - volume status appears stable - ua neg for protein - repeat labs in am - monitor renal function on lisinopril Dr Saab
--- NOTE | 2018-11-01 16:20 | ECHO ---
Name: TOMMY CORRIGAN Exam:Adult Echocardiogram Study Date: 11/01/2018 02:39 PM Age: 53 yrs Reason For Study: ejection fraction Height: 65 in Weight: 211 lb BSA: 2.0 m2 MMode/2D Measurements & Calculations IVSd: 0.78 cm Ao root diam: 3.1 cm LVIDd: 4.2 cm LA dimension: 3.6 cm LVIDs: 2.4 cm ACS: 1.7 cm LVPWd: 0.99 cm IVSs: 1.1 cm LVPWs: 1.2 cm EDV(Teich): 80.0 ml ESV(Teich): 20.5 ml Doppler Measurements & Calculations MV E max santiago: 84.9 cm/sec Ao V2 max: 179.2 cm/sec MV A max santiago: 76.8 cm/sec Ao max P.8 mmHg MV E/A: 1.1 Ao V2 mean: 110.2 cm/sec Ao mean P.7 mmHg Ao V2 VTI: 29.9 cm TR max santiago: 249.8 cm/sec Med Peak E' [place]: 10.2 cm/sec TR max P.0 mmHg Med E/e': 8.3 Lat Peak E' [place]: 11.4 cm/sec Lat E/e': 7.4 Procedure A complete two-dimensional transthoracic echocardiogram was performed (2D, M-mode, Doppler and color flow Doppler). The study was technically difficult with many images being suboptimal in quality. Left Ventricle The left ventricular size, thickness and function are normal. The left ventricular ejection fraction is normal. Ejection Fraction = 60-65%. No regional wall motion abnormalities noted. Right Ventricle The right ventricle is normal in size and function. Atria Normal left and right atrial size and function. Mitral Valve There is no mitral regurgitation noted. Tricuspid Valve There is trace tricuspid regurgitation. There was insufficient TR detected to calculate RV systolic p ressure. Aortic Valve No hemodynamically significant valvular aortic stenosis. No aortic regurgitation is present. Pulmonic Valve There is no pulmonic valvular regurgitation. Great Vessels The aortic root is normal size. Pericardium/Pleura There is no pericardial effusion. Interpretation Summary The study was technically difficult with many images being suboptimal in quality. The left ventricular size, thickness and function are normal The right ventricle is normal in size and function. There is trace tricuspid regurgitation. MD Lamont Lugo 11/01/2018 04:19 PM
[2018-11-01] MEDS ORDERED: traZODone HCL 50 MG TABLET (FP) ONE (21:09)
[2018-11-01] MEDS: THIAMINE HCL 100 MG TABLET (FP) PO SCH (22:08)
[2018-11-01] MEDS: MIRTAZAPINE 15 MG TABLET (FP) PO SCH (22:08)
[2018-11-01] MEDS: ATORVASTATIN CA 10 MG TABLET (FP) PO SCH (22:08)
[2018-11-01] MEDS: traZODone HCL 100 MG TABLET (FP) PO SCH (22:08)
[2018-11-02] MEDS: HEPARIN NA (PORCINE) 5,000 UNITS/ML 1ML VIAL SQ SCH ×3 (06:20→22:09)
[2018-11-02] MEDS: NYSTATIN 500,000 UNITS/5 ML SUSPENSION PO SCH (06:20)
[2018-11-02 07:16] LABS: BASO % 0.3 % (0-2.0); EOS % 2.3 % (0-4.5); HEMATOCRIT 33.3 % (32.4-45.2); HEMOGLOBIN 11.4 GM/dL (10.7-15.3); LYMPH % 28.6 % (8-40); MCH 32.4 pg (25.7-33.7); MCHC 34.3 g/dl (32.0-36.0); MEAN CELL VOLUME 94.5 fl (80-96); MEAN PLT VOLUME 8.1 fl (7.5-11.1); NEUT % 55.8 % (42.8-82.8); PLATELET COUNT 213 K/MM3 (134-434); RBC 3.52 M/mm3 (3.60-5.2); RDW 16.8 % (11.6-15.6); WHITE BLOOD COUNT 9.6 K/mm3 (4.0-10.0)
[2018-11-02 07:49] LABS: ANION GAP 6 MMOL/L (8-16); BLOOD UREA NITROGEN 37 mg/dL (7-18); CALCIUM 9.1 mg/dL (8.5-10.1); CHLORIDE 105 mmol/L (98-107); CO2 28 mmol/L (21-32); CREATININE 0.8 mg/dL (0.55-1.3); GLUCOSE,RANDOM 93 mg/dL (74-106); POTASSIUM 4.4 mmol/L (3.5-5.1); SODIUM 139 mmol/L (136-145)
[2018-11-02] MEDS: ALBUTEROL SO4 2.5/IPRATROPIUM 0.5 INH SOL 3 ML VIAL.NEB. NEB SCH ×4 (08:07→20:38)
--- NOTE | 2018-11-02 08:36 | PN ---
Progress Note, Physician History of Present Illness: Patient examined and case discussed with Dr Grewal GI FOLLOW UP NOTE Patient states that abdominal pain is better and dysphagia has improved. Barium Swallow performed and show normal GI series and recommend GERD precautions. Denies abdominal pain, nausea, vomiting. Denies diarrhea, rectal bleeding, or melena. - Current Medication List Current Medications: Active Medications Acetaminophen (Tylenol -) 650 mg PO Q6H PRN PRN Reason: FEVER Last Admin: 10/30/18 10:10 Dose: 650 mg Al Hydroxide/Mg Hydroxide (Mylanta Oral Suspension -) 30 ml PO Q6H PRN PRN Reason: DYSPEPSIA Last Admin: 10/30/18 18:44 Dose: 30 ml Albuterol Sulfate (Ventolin Hfa Inhaler -) 2 puff IH Q4H PRN PRN Reason: SHORT OF BREATH/WHEEZING Albuterol/Ipratropium (Duoneb -) 1 amp NEB RQID [facility] Last Admin: 11/02/18 08:07 Dose: 1 amp Atorvastatin Calcium (Lipitor -) 10 mg PO HS [facility] [place] Last Admin: 11/01/18 22:08 Dose: 10 mg Budesonide/Formoterol Fumarate (Symbicort 160/4.5mcg -) 2 puff IH BID [facility] Last Admin: 11/01/18 22:09 Dose: 2 puff Furosemide (Lasix -) 40 mg PO DAILY [facility] Heparin Sodium (Porcine) (Heparin -) 5,000 unit SQ TID [facility] Last Admin: 11/02/18 06:20 Dose: Not Given Labetalol HCl (Normodyne -) 100 mg PO BID [facility] Last Admin: 11/01/18 22:09 Dose: Not Given Lisinopril (Prinivil) 20 mg PO BID [facility] Last Admin: 11/01/18 22:09 Dose: Not Given Melatonin (Melatonin) 5 mg PO HS PRN PRN Reason: INSOMNIA Last Admin: 10/31/18 21:34 Dose: 5 mg Mirtazapine (Remeron -) 30 mg PO HS [facility] [place] Last Admin: 11/01/18 22:08 Dose: 30 mg Multivitamins/Minerals/Vitamin C (Tab-A-Vit -) 1 tab PO DAILY [facility] Last Admin: 11/01/18 10:53 Dose: 1 tab Nicotine (Nicoderm Patch -) 21 mg TD DAILY [facility] Last Admin: 11/01/18 10:51 Dose: Not Given Nystatin (Nystatin Oral Suspension -) 500,000 units PO Q6HPO [facility] Last Admin: 11/02/18 06:20 Dose: 500,000 units Pantoprazole Sodium (Protonix -) 40 mg PO DAILY [facility] [place] Last Admin: 11/01/18 10:54 Dose: 40 mg Polyethylene Glycol (Miralax (For Daily Use) -) 17 gm PO BID [facility] [place] Last Admin: 11/01/18 22:08 Dose: Not Given Sertraline HCl (Zoloft -) 50 mg PO DAILY [facility] Last Admin: 11/01/18 10:54 Dose: 50 mg Sodium Chloride ([place] Nasal [place] -) 2 spray NS BID [facility] Last Admin: 11/01/18 22:09 Dose: 2 spray Thiamine HCl (Vitamin B1 -) 100 mg PO HS [facility] [place] Last Admin: 11/01/18 22:08 Dose: 100 mg Tiotropium [place] (Spiriva Respimat) 2 puff IH DAILY [facility] [place] Last Admin: 11/01/18 10:55 Dose: 2 puff Trazodone HCl (Desyrel -) 100 mg PO [facility] Last Admin: 11/01/18 22:08 Dose: 100 mg - Objective Vital Signs: Vital Signs Temperature 97.5 F L 11/02/18 06:00 Pulse Rate 103 H 11/02/18 06:00 Respiratory Rate 20 11/02/18 06:00 Blood Pressure 108/64 11/02/18 06:00 O2 Sat by Pulse Oximetry (%) 97 11/01/18 21:00 Constitutional: Yes: Well Nourished, No Distress, Calm Eyes: Yes: Conjunctiva Clear HENT: Yes: Normocephalic Cardiovascular: Yes: Regular Rate and Rhythm Respiratory: Yes: On Nasal O2, Wheezes Gastrointestinal: Yes: Normal Bowel Sounds, Soft, Tenderness (mild tenderness to umbilical area), Other (tympany). No: WNL, Abdomen, Obese, Ascites, Distention, Hematemesis, Hemorrhoids, Hepatomegaly, Hernia, Hyperactive Bowel Sounds, Hypoactive Bowel Sounds, Melena, Palpable Mass, Pulsatile Mass, Rectal Bleeding, Splenomegaly, Tenderness, Epigastrium, Tenderness, Rebound, Vomiting Musculoskeletal: Yes: WNL Neurological: Yes: Alert, Oriented Labs: CBC, BMP 11/02/18 06:20 11/02/18 06:20 Problem List - Problems (1) Anasarca Code(s): R60.1 - GENERALIZED EDEMA (2) COPD exacerbation Code(s): J44.1 - CHRONIC OBSTRUCTIVE PULMONARY DISEASE W (ACUTE) EXACERBATION (3) Depression Code(s): F32.9 - MAJOR DEPRESSIVE DISORDER, SINGLE EPISODE, UNSPECIFIED Qualifiers: Depression Type: unspecified Qualified Code(s): F32.9 - Major depressive disorder, single episode, unspecified (4) Hypertension Code(s): I10 - ESSENTIAL (PRIMARY) HYPERTENSION Qualifiers: Hypertension type: essential hypertension Qualified Code(s): I10 - Essential (primary) hypertension (5) Nicotine dependence Code(s): F17.200 - NICOTINE DEPENDENCE, UNSPECIFIED, UNCOMPLICATED (6) Abdominal pain Assessment/Plan: -continue with Mylanta PRN Code(s): R10.9 - UNSPECIFIED ABDOMINAL PAIN (7) Elevated BUN Code(s): R79.9 - ABNORMAL FINDING OF BLOOD CHEMISTRY, UNSPECIFIED (8) Dysphagia Assessment/Plan: -discussed GERD precautions with patient -continue pantoprazole 40mg daily Code(s): R13.10 - DYSPHAGIA, UNSPECIFIED
[2018-11-02] MEDS: POLYETHYLENE GLYCOL 3350 119 GM BTL PO SCH ×2 (09:32→22:09)
[2018-11-02] MEDS: NICOTINE 21 MG/24 HOURS TOPICAL PATCH TD SCH (09:32)
[2018-11-02] MEDS: FUROSEMIDE 40 MG TABLET (FP) PO SCH (09:33)
[2018-11-02] MEDS: MULTIVITAMINS (DAILY MVI) TABLET (FP) PO SCH (09:33)
[2018-11-02] MEDS: SERTRALINE HCL 50 MG TABLET (FP) PO SCH (09:33)
[2018-11-02] MEDS: LISINOPRIL 20 MG TABLET (FP) PO SCH (09:33)
[2018-11-02] MEDS: LABETALOL HCL 100 MG TABLET (FP) PO SCH ×2 (09:33→22:09)
[2018-11-02] MEDS: PANTOPRAZOLE 40 MG TABLET (FP) PO SCH (09:33)
[2018-11-02] MEDS: BUDESONIDE/FORMETEROL FUMARATE 160/4.5 mcg INHALER IH SCH ×2 (09:34→22:12)
[2018-11-02] MEDS: SODIUM CHLORIDE NASAL SPRAY 44 ML BOTTLE NS SCH ×2 (09:34→22:09)
[2018-11-02] MEDS: TIOTROPIUM BROMIDE 2.5 MCG (SPIRIVA) RESPIMAT INHALER IH SCH (09:35)
--- NOTE | 2018-11-02 10:51 | DS ---
Physical Examination Vital Signs: Vital Signs Temperature 98.7 F 11/02/18 09:00 Pulse Rate 102 H 11/02/18 09:00 Respiratory Rate 18 11/02/18 09:00 Blood Pressure 119/73 11/02/18 09:00 O2 Sat by Pulse Oximetry (%) 97 11/01/18 21:00 Constitutional: Yes: Calm Cardiovascular: Yes: Regular Rate and Rhythm, S1, S2 Respiratory: Yes: CTA Bilaterally Gastrointestinal: Yes: Normal Bowel Sounds, Soft Edema: Yes (much reduced) Neurological: Yes: Alert, Oriented Labs: CBC, BMP 11/02/18 06:20 11/02/18 06:20 Discharge Summary Reason For Visit: ACUTE EXACERBATION OF CHRONIC OBSTRUCTIVE PULMONAR Current Active Problems Abdominal pain (Acute) Anasarca (Acute) Azotemia (Acute) Bronchiectasis (Acute) CHF (congestive heart failure) (Acute) COPD exacerbation (Acute) Cholelithiasis (Acute) Dysphagia (Acute) Elevated BUN (Acute) Emphysema of lung (Acute) SOB (shortness of breath) (Acute) Hospital Course: CHIEF COMPLAINT: " Worsening shortness of breath and swelling of the body x 1 week" PCP: HISTORY OF PRESENT ILLNESS: Patient is a 53 year old female presented from [facility] to the ED with the chief complaint of " Worsening shortness of breath and swelling of the body x 1 week". Patient was recently admitted at [facility] from 10/10/18 to 10/12/18 for evaluation of COPD Exacerbation and hypoxia, was sent to [facility] for short term pulmonary rehab. Patient states that she started having shortness of breath x 1 week, using about 7-8 pillows at night, disturbed sleep, cannot lay flat but denies chest pain or palpitations. Also reports that she noticed swelling of the legs initially then started having generalized swelling to the point that her breast got engorged, abdomen was distended. Patient also mentions she as been urinating more frequently and felt pressure in the suprapubic area. Due to these symptoms she called 911 and came to the ED for further evaluation. Bowel habit normal. Last BM was yesterday. ER course was notable for: (1) Afebrile, WBC 14.6; UA 2 + LE, WBC 10 (2) CT chest with contrast/ Abdomen/Pelvis CT No acute pathology (3) Duoneb, IV Lasix 20mg hospital course: patient got iv lasix leg edema imrpoved seen by GI got GI series normal seen by fazal begum as well Condition: Guarded - Instructions Referrals: ON STAFF,NOT [Primary Care Provider] - Disposition: HALFWAY FACILITY - Home Medications Comprehensive Discharge Medication List: Ambulatory Orders Acetaminophen [Tylenol] 650 mg PO ASDIR 10/05/18 Albuterol 0.083% Nebulizer Jyoti [Ventolin 0.083% Nebulizer Soln -] 1 neb NEB QID 10/05/18 Albuterol 2.5/Ipratropium 0.5 [Duoneb -] 1 neb NEB Q4H 10/05/18 Budesonide/Formeterol Fumarate [SYMBICORT 160/4.5mcg -] 1 inh PO BID 10/05/18 Hydrochlorothiazide 12.5 mg PO DAILY 10/05/18 Labetalol HCl [Normodyne -] 100 mg PO BID 10/05/18 Mag Hydrox/Al Hydrox/Simeth [Mylanta Oral Suspension -] 1 dose PO ASDIR Melatonin 5 mg PO DAILY 10/05/18 Mirtazapine [Remeron -] 30 mg PO DAILY 10/05/18 Nifedipine [Procardia Xl] 30 mg PO DAILY 10/05/18 95/Iron Fum/Folic/Dha [ + Dha Combo Pack] 1 each PO DAILY 10/05 Sertraline HCl [Zoloft -] 50 mg PO DAILY 10/05/18 Thiamine HCl [B-1] 100 mg PO HS 10/05/18 traZODone HCL [Trazodone HCl] 100 mg PO ASDIR 10/05/18 Albuterol Sulfate Inhaler - [Ventolin HFA Inhaler -] 2 puff IH Q4H PRN 10/08/18 Simvastatin 20 mg PO HS 10/08/18 Aclidinium [place] [Tudorza [place]] 400 mcg IH DAILY 10/12/18 Budesonide/Formeterol Fumarate [SYMBICORT 160/4.5mcg -] 2 puff IH BID inhaler 10/12/18 Nicotine Patch [Nicoderm Patch -] 21 mg TD DAILY patch 10/12/18 Nystatin Oral Suspension - [Nystatin Oral Susp 580516 Units/5 ML -] 500,000 units PO Q6HPO cup 10/12/18 Ranitidine [Zantac -] 150 mg PO BID tablet 10/12/18 Sodium Chloride Nasal [place] [[place] Nasal [place] -] 2 spray NS BID spray
[2018-11-02] MEDS ORDERED: SIMETHICONE 80 MG TAB.CHEW (FP) PO PRN (11:53)
[2018-11-02] MEDS ORDERED: SODIUM CHLORIDE 250 ML IV ONE (15:15)
--- NOTE | 2018-11-02 16:49 | PN ---
Progress Note, Physician History of Present Illness: Pt seen and examined at bedside. She was found to have low bp. - Current Medication List Current Medications: Active Medications Acetaminophen (Tylenol -) 650 mg PO Q6H PRN PRN Reason: FEVER Last Admin: 10/30/18 10:10 Dose: 650 mg Al Hydroxide/Mg Hydroxide (Mylanta Oral Suspension -) 30 ml PO Q6H PRN PRN Reason: DYSPEPSIA Last Admin: 10/30/18 18:44 Dose: 30 ml Albuterol Sulfate (Ventolin Hfa Inhaler -) 2 puff IH Q4H PRN PRN Reason: SHORT OF BREATH/WHEEZING Albuterol/Ipratropium (Duoneb -) 1 amp NEB RQID [facility] Last Admin: 11/02/18 12:02 Dose: 1 amp Atorvastatin Calcium (Lipitor -) 10 mg PO HS [facility] Last Admin: 11/01/18 22:08 Dose: 10 mg Budesonide/Formoterol Fumarate (Symbicort 160/4.5mcg -) 2 puff IH BID [facility] Last Admin: 11/02/18 09:34 Dose: 2 puff Furosemide (Lasix -) 40 mg PO DAILY [facility] Last Admin: 11/02/18 09:33 Dose: 40 mg Heparin Sodium (Porcine) (Heparin -) 5,000 unit SQ TID [facility] Last Admin: 11/02/18 14:33 Dose: Not Given Labetalol HCl (Normodyne -) 100 mg PO BID [facility] Last Admin: 11/02/18 09:33 Dose: 100 mg Lisinopril (Prinivil) 20 mg PO BID [facility] Last Admin: 11/02/18 09:33 Dose: 20 mg Melatonin (Melatonin) 5 mg PO HS PRN PRN Reason: INSOMNIA Last Admin: 10/31/18 21:34 Dose: 5 mg Mirtazapine (Remeron -) 30 mg PO HS [facility] Last Admin: 11/01/18 22:08 Dose: 30 mg Multivitamins/Minerals/Vitamin C (Tab-A-Vit -) 1 tab PO DAILY [facility] Last Admin: 11/02/18 09:33 Dose: 1 tab Nicotine (Nicoderm Patch -) 21 mg TD DAILY [facility] Last Admin: 11/02/18 09:32 Dose: Not Given Pantoprazole Sodium (Protonix -) 40 mg PO DAILY [facility] Last Admin: 11/02/18 09:33 Dose: 40 mg Polyethylene Glycol (Miralax (For Daily Use) -) 17 gm PO BID [facility] Last Admin: 11/02/18 09:32 Dose: Not Given Sertraline HCl (Zoloft -) 50 mg PO DAILY [facility] Last Admin: 11/02/18 09:33 Dose: 50 mg Simethicone (Mylicon -) 80 mg PO QID PRN PRN Reason: DYSPEPSIA Last Admin: 11/02/18 12:28 Dose: 80 mg Sodium Chloride ([place] Nasal [place] -) 2 spray NS BID [facility] Last Admin: 11/02/18 09:34 Dose: 2 spray Thiamine HCl (Vitamin B1 -) 100 mg PO HS [facility] Last Admin: 11/01/18 22:08 Dose: 100 mg Tiotropium [place] (Spiriva Respimat) 2 puff IH DAILY [facility] Last Admin: 11/02/18 09:35 Dose: 2 puff Trazodone HCl (Desyrel -) 100 mg PO HS [facility] Last Admin: 11/01/18 22:08 Dose: 100 mg - Objective Vital Signs: Vital Signs Temperature 98.0 F 11/02/18 14:00 Pulse Rate 102 H 11/02/18 14:00 Respiratory Rate 22 H 11/02/18 14:00 Blood Pressure 74/36 L 11/02/18 14:00 O2 Sat by Pulse Oximetry (%) 97 11/01/18 21:00 Constitutional: Yes: Calm Eyes: Yes: Conjunctiva Clear Cardiovascular: Yes: S1, S2 Respiratory: Yes: On Nasal O2 Gastrointestinal: Yes: Soft Genitourinary: Yes: WNL Edema: No Neurological: Yes: Oriented Psychiatric: Yes: Oriented Labs: CBC, BMP 11/02/18 06:20 11/02/18 06:20 Problem List - Problems (1) Azotemia Code(s): R79.89 - OTHER SPECIFIED ABNORMAL FINDINGS OF BLOOD CHEMISTRY (2) COPD exacerbation Code(s): J44.1 - CHRONIC OBSTRUCTIVE PULMONARY DISEASE W (ACUTE) EXACERBATION (3) Elevated BUN Code(s): R79.9 - ABNORMAL FINDING OF BLOOD CHEMISTRY, UNSPECIFIED Assessment/Plan Current Medications Generic Name Dose Route Start Last Admin Trade Name Freq PRN Reason Stop Dose Admin Acetaminophen 650 mg 10/27/18 20:36 10/30/18 10:10 Tylenol - PO 650 mg Q6H PRN Administration FEVER Al Hydroxide/Mg Hydroxide 30 ml 10/30/18 12:40 10/30/18 18:44 Mylanta Oral Suspension - PO 30 ml Q6H PRN Administration DYSPEPSIA Albuterol Sulfate 2 puff 11/01/18 04:12 Ventolin Hfa Inhaler - IH Q4H PRN SHORT OF BREATH/WHEEZING Albuterol/Ipratropium 1 amp 11/01/18 20:00 11/02/18 12:02 Duoneb - NEB 1 amp RQID [facility] Administration Atorvastatin Calcium 10 mg 10/26/18 22:00 11/01/18 22:08 Lipitor - PO 10 mg HS [facility] Administration Budesonide/Formoterol Fumarate 2 puff 11/01/18 13:00 11/02/18 09:34 Symbicort 160/4.5mcg - IH 2 puff BID [facility] Administration Furosemide 40 mg 11/02/18 10:00 11/02/18 09:33 Lasix - PO 40 mg DAILY [facility] Administration Heparin Sodium (Porcine) 5,000 unit 10/27/18 06:00 11/02/18 14:33 Heparin - SQ Not Given TID [facility] Labetalol HCl 100 mg 10/26/18 22:00 11/02/18 09:33 Normodyne - PO 100 mg BID [facility] Administration Lisinopril 20 mg 10/26/18 22:00 11/02/18 09:33 Prinivil PO 20 mg BID [facility] Administration Melatonin 5 mg 10/26/18 20:41 10/31/18 21:34 Melatonin PO 5 mg HS PRN Administration INSOMNIA Mirtazapine 30 mg 10/27/18 22:00 11/01/18 22:08 Remeron - PO 30 mg HS [facility] Administration Multivitamins/Minerals/Vitamin C 1 tab 10/27/18 10:00 11/02/18 09:33 Tab-A-Vit - PO 1 tab DAILY [facility] Administration Nicotine 21 mg 10/26/18 20:45 11/02/18 09:32 Nicoderm Patch - TD Not Given DAILY [facility] Pantoprazole Sodium 40 mg 10/31/18 10:00 11/02/18 09:33 Protonix - PO 40 mg DAILY [facility] Administration Polyethylene Glycol 17 gm 10/31/18 10:00 02/08/19 09:32 Miralax (For Daily Use) - PO Not Given BID [facility] Sertraline HCl 50 mg 10/26/18 22:00 11/02/18 09:33 Zoloft - PO 50 mg DAILY [facility] Administration Simethicone 80 mg 11/02/18 11:53 11/02/18 12:28 Mylicon - PO 80 mg QID PRN Administration DYSPEPSIA Sodium Chloride 2 spray 10/26/18 22:00 11/02/18 09:34 [place] Nasal [place] - NS 2 spray BID [facility] Administration Thiamine HCl 100 mg 10/26/18 22:00 11/01/18 22:08 Vitamin B1 - PO 100 mg HS [facility] Administration Tiotropium [place] 2 puff 10/27/18 10:00 11/02/18 09:35 Spiriva Respimat IH 2 puff DAILY [facility] Administration Trazodone HCl 100 mg 10/26/18 22:00 11/01/18 22:08 Desyrel - PO 100 mg HS [facility] Administration Impression 1. azotemia 2. htn 3. copd 4. emphysema 5. depression 6. active smoker 7. hld 8. hypotension Plan - give saline bolus and repeat bp - hold lisinopril as bp is low - hold lasix of hypotensive tomorrow - ua neg for protein - check cortisol level Dr Saab
[2018-11-02] MEDS ORDERED: traZODone HCL 50 MG TABLET (FP) ONE (21:40)
[2018-11-02] MEDS: traZODone HCL 100 MG TABLET (FP) PO SCH (22:08)
[2018-11-02] MEDS: ATORVASTATIN CA 10 MG TABLET (FP) PO SCH (22:09)
[2018-11-02] MEDS: MIRTAZAPINE 15 MG TABLET (FP) PO SCH (22:09)
[2018-11-02] MEDS: THIAMINE HCL 100 MG TABLET (FP) PO SCH (22:09)
[2018-11-02] MEDS: MELATONIN 5 MG TABLETS PO PRN (22:15)
[2018-11-03] MEDS: HEPARIN NA (PORCINE) 5,000 UNITS/ML 1ML VIAL SQ SCH ×3 (05:13→22:01)
[2018-11-03] MEDS: ALBUTEROL SO4 2.5/IPRATROPIUM 0.5 INH SOL 3 ML VIAL.NEB. NEB SCH ×4 (07:19→20:14)
[2018-11-03 07:53] LABS: ANION GAP 5 MMOL/L (8-16); BLOOD UREA NITROGEN 30 mg/dL (7-18); CALCIUM 8.3 mg/dL (8.5-10.1); CHLORIDE 105 mmol/L (98-107); CO2 29 mmol/L (21-32); CREATININE 0.8 mg/dL (0.55-1.3); GLUCOSE,RANDOM 88 mg/dL (74-106); POTASSIUM 4.5 mmol/L (3.5-5.1); SODIUM 139 mmol/L (136-145)
[2018-11-03] MEDS ORDERED: PT OWN MED DRAWER 7, Y5N ONE (11:34)
[2018-11-03] MEDS: FUROSEMIDE 40 MG TABLET (FP) PO SCH (11:40)
[2018-11-03] MEDS: PANTOPRAZOLE 40 MG TABLET (FP) PO SCH (11:40)
[2018-11-03] MEDS: LABETALOL HCL 100 MG TABLET (FP) PO SCH ×2 (11:40→22:00)
[2018-11-03] MEDS: BUDESONIDE/FORMETEROL FUMARATE 160/4.5 mcg INHALER IH SCH ×2 (11:41→22:00)
[2018-11-03] MEDS: SERTRALINE HCL 50 MG TABLET (FP) PO SCH (11:41)
[2018-11-03] MEDS: SODIUM CHLORIDE NASAL SPRAY 44 ML BOTTLE NS SCH ×2 (11:41→22:00)
[2018-11-03] MEDS: TIOTROPIUM BROMIDE 2.5 MCG (SPIRIVA) RESPIMAT INHALER IH SCH (11:41)
[2018-11-03] MEDS: MULTIVITAMINS (DAILY MVI) TABLET (FP) PO SCH (11:41)
[2018-11-03] MEDS: NICOTINE 21 MG/24 HOURS TOPICAL PATCH TD SCH (11:44)
[2018-11-03] MEDS: POLYETHYLENE GLYCOL 3350 119 GM BTL PO SCH ×2 (11:44→22:01)
[2018-11-03] MEDS: ACETAMINOPHEN 325 MG TABLET (FP) PO PRN (12:26)
--- NOTE | 2018-11-03 12:44 | PN ---
Progress Note, Physician - Current Medication List Current Medications: Active Medications Acetaminophen (Tylenol -) 650 mg PO Q6H PRN PRN Reason: FEVER Last Admin: 11/03/18 12:26 Dose: 650 mg Al Hydroxide/Mg Hydroxide (Mylanta Oral Suspension -) 30 ml PO Q6H PRN PRN Reason: DYSPEPSIA Last Admin: 10/30/18 18:44 Dose: 30 ml Albuterol Sulfate (Ventolin Hfa Inhaler -) 2 puff IH Q4H PRN PRN Reason: SHORT OF BREATH/WHEEZING Albuterol/Ipratropium (Duoneb -) 1 amp NEB RQID [facility] Last Admin: 11/03/18 11:29 Dose: 1 amp Atorvastatin Calcium (Lipitor -) 10 mg PO HS [facility] Last Admin: 11/02/18 22:09 Dose: 10 mg Budesonide/Formoterol Fumarate (Symbicort 160/4.5mcg -) 2 puff IH BID [facility] Last Admin: 11/03/18 11:41 Dose: 2 puff Furosemide (Lasix -) 40 mg PO DAILY [facility] Last Admin: 11/03/18 11:40 Dose: 40 mg Heparin Sodium (Porcine) (Heparin -) 5,000 unit SQ TID [facility] Last Admin: 11/03/18 05:13 Dose: Not Given Labetalol HCl (Normodyne -) 100 mg PO BID [facility] Last Admin: 11/03/18 11:40 Dose: 100 mg Melatonin (Melatonin) 5 mg PO HS PRN PRN Reason: INSOMNIA Last Admin: 11/02/18 22:15 Dose: 5 mg Mirtazapine (Remeron -) 30 mg PO HS [facility] Last Admin: 11/02/18 22:09 Dose: 30 mg Multivitamins/Minerals/Vitamin C (Tab-A-Vit -) 1 tab PO DAILY [facility] Last Admin: 11/03/18 11:41 Dose: 1 tab Nicotine (Nicoderm Patch -) 21 mg TD DAILY [facility] Last Admin: 11/03/18 11:44 Dose: Not Given Pantoprazole Sodium (Protonix -) 40 mg PO DAILY [facility] Last Admin: 11/03/18 11:40 Dose: 40 mg Polyethylene Glycol (Miralax (For Daily Use) -) 17 gm PO BID [facility] Last Admin: 11/03/18 11:44 Dose: Not Given Sertraline HCl (Zoloft -) 50 mg PO DAILY [facility] Last Admin: 11/03/18 11:41 Dose: 50 mg Simethicone (Mylicon -) 80 mg PO QID PRN PRN Reason: DYSPEPSIA Last Admin: 11/02/18 12:28 Dose: 80 mg Sodium Chloride ([place] Nasal [place] -) 2 spray NS BID [facility] Last Admin: 11/03/18 11:41 Dose: 2 spray Thiamine HCl (Vitamin B1 -) 100 mg PO [facility] Last Admin: 11/02/18 22:09 Dose: 100 mg Tiotropium [place] (Spiriva Respimat) 2 puff IH DAILY [facility] Last Admin: 11/03/18 11:41 Dose: 2 puff Trazodone HCl (Desyrel -) 100 mg PO [facility] Last Admin: 11/02/18 22:08 Dose: 100 mg - Objective Vital Signs: Vital Signs Temperature 97.9 F 11/03/18 09:30 Pulse Rate 88 11/03/18 09:30 Respiratory Rate 18 11/03/18 09:30 Blood Pressure 100/56 L 11/03/18 09:30 O2 Sat by Pulse Oximetry (%) 97 11/02/18 21:00 Cardiovascular: Yes: S1, S2 Respiratory: Yes: Regular, CTA Bilaterally Gastrointestinal: Yes: Normal Bowel Sounds, Soft Labs: CBC, BMP 11/02/18 06:20 11/03/18 06:30 Problem List - Problems (1) CHF (congestive heart failure) Code(s): I50.9 - HEART FAILURE, UNSPECIFIED (2) COPD exacerbation Code(s): J44.1 - CHRONIC OBSTRUCTIVE PULMONARY DISEASE W (ACUTE) EXACERBATION (3) Hypertension Code(s): I10 - ESSENTIAL (PRIMARY) HYPERTENSION Qualifiers: Hypertension type: essential hypertension Qualified Code(s): I10 - Essential (primary) hypertension (4) Abdominal pain Code(s): R10.9 - UNSPECIFIED ABDOMINAL PAIN (5) Depression Code(s): F32.9 - MAJOR DEPRESSIVE DISORDER, SINGLE EPISODE, UNSPECIFIED Qualifiers: Depression Type: unspecified Qualified Code(s): F32.9 - Major depressive disorder, single episode, unspecified Assessment/Plan - Problems (1) Azotemia Assessment/Plan: renal on board ON LASIX HYPOTENSION YESTERDAY Code(s): R79.89 - OTHER SPECIFIED ABNORMAL FINDINGS OF BLOOD CHEMISTRY (2) CHF (congestive heart failure) Assessment/Plan: appreciate cardiology consult ordered echo change lasix to po Code(s): I50.9 - HEART FAILURE, UNSPECIFIED (3) COPD exacerbation Assessment/Plan: oxygen bronchodilators Code(s): J44.1 - CHRONIC OBSTRUCTIVE PULMONARY DISEASE W (ACUTE) EXACERBATION (4) Dysphagia Assessment/Plan: barium series done gi onboard fazal begum saw patient Code(s): R13.10 - DYSPHAGIA, UNSPECIFIED
--- NOTE | 2018-11-03 13:43 | PN ---
Progress Note, Physician History of Present Illness: PULMONARY ALERT,NO DISTRESS,EPISODE OF HYPOTENSION LAST NIGHT RESPONDED WELL TO IVF , CURRENTLY IMPROVED - Current Medication List Current Medications: Active Medications Acetaminophen (Tylenol -) 650 mg PO Q6H PRN PRN Reason: FEVER Last Admin: 11/03/18 12:26 Dose: 650 mg Al Hydroxide/Mg Hydroxide (Mylanta Oral Suspension -) 30 ml PO Q6H PRN PRN Reason: DYSPEPSIA Last Admin: 10/30/18 18:44 Dose: 30 ml Albuterol Sulfate (Ventolin Hfa Inhaler -) 2 puff IH Q4H PRN PRN Reason: SHORT OF BREATH/WHEEZING Albuterol/Ipratropium (Duoneb -) 1 amp NEB RQID [facility] Last Admin: 11/03/18 11:29 Dose: 1 amp Atorvastatin Calcium (Lipitor -) 10 mg PO HS [facility] Last Admin: 11/02/18 22:09 Dose: 10 mg Budesonide/Formoterol Fumarate (Symbicort 160/4.5mcg -) 2 puff IH BID [facility] Last Admin: 11/03/18 11:41 Dose: 2 puff Furosemide (Lasix -) 40 mg PO DAILY [facility] Last Admin: 11/03/18 11:40 Dose: 40 mg Heparin Sodium (Porcine) (Heparin -) 5,000 unit SQ TID [facility] Last Admin: 11/03/18 05:13 Dose: Not Given Labetalol HCl (Normodyne -) 100 mg PO BID [facility] Last Admin: 11/03/18 11:40 Dose: 100 mg Melatonin (Melatonin) 5 mg PO HS PRN PRN Reason: INSOMNIA Last Admin: 11/02/18 22:15 Dose: 5 mg Mirtazapine (Remeron -) 30 mg PO HS [facility] Last Admin: 11/02/18 22:09 Dose: 30 mg Multivitamins/Minerals/Vitamin C (Tab-A-Vit -) 1 tab PO DAILY [facility] Last Admin: 11/03/18 11:41 Dose: 1 tab Nicotine (Nicoderm Patch -) 21 mg TD DAILY [facility] Last Admin: 11/03/18 11:44 Dose: Not Given Pantoprazole Sodium (Protonix -) 40 mg PO DAILY [facility] Last Admin: 11/03/18 11:40 Dose: 40 mg Polyethylene Glycol (Miralax (For Daily Use) -) 17 gm PO BID [facility] Last Admin: 11/03/18 11:44 Dose: Not Given Sertraline HCl (Zoloft -) 50 mg PO DAILY [facility] Last Admin: 11/03/18 11:41 Dose: 50 mg Simethicone (Mylicon -) 80 mg PO QID PRN PRN Reason: DYSPEPSIA Last Admin: 11/02/18 12:28 Dose: 80 mg Sodium Chloride ([place] Nasal [place] -) 2 spray NS BID [facility] Last Admin: 11/03/18 11:41 Dose: 2 spray Thiamine HCl (Vitamin B1 -) 100 mg PO HS [facility] Last Admin: 11/02/18 22:09 Dose: 100 mg Tiotropium [place] (Spiriva Respimat) 2 puff IH DAILY [facility] Last Admin: 11/03/18 11:41 Dose: 2 puff Trazodone HCl (Desyrel -) 100 mg PO [facility] Last Admin: 11/02/18 22:08 Dose: 100 mg - Objective Vital Signs: Vital Signs Temperature 97.9 F 11/03/18 09:30 Pulse Rate 88 11/03/18 09:30 Respiratory Rate 18 11/03/18 09:30 Blood Pressure 100/56 L 11/03/18 09:30 O2 Sat by Pulse Oximetry (%) 97 11/02/18 21:00 Constitutional: Yes: Well Nourished, Calm Eyes: Yes: WNL HENT: Yes: WNL Neck: Yes: WNL Cardiovascular: Yes: Regular Rate and Rhythm, S1 Respiratory: Yes: Diminished Gastrointestinal: Yes: Normal Bowel Sounds, Soft Extremities: Yes: WNL Edema: Yes Labs: CBC, BMP 11/02/18 06:20 11/03/18 06:30 Assessment/Plan Problem List - Problems (1) Bronchiectasis Code(s): J47.9 - BRONCHIECTASIS, UNCOMPLICATED (2) Emphysema of lung Code(s): J43.9 - EMPHYSEMA, UNSPECIFIED (3) Anasarca Code(s): R60.1 - GENERALIZED EDEMA (4) SOB (shortness of breath) Code(s): R06.02 - SHORTNESS OF BREATH (5) Anxiety Code(s): F41.9 - ANXIETY DISORDER, UNSPECIFIED (6) Nicotine dependence Code(s): F17.200 - NICOTINE DEPENDENCE, UNSPECIFIED, UNCOMPLICATED (7) COPD (chronic obstructive pulmonary disease) Code(s): J44.9 - CHRONIC OBSTRUCTIVE PULMONARY DISEASE, UNSPECIFIED Qualifiers: COPD type: unspecified COPD Qualified Code(s): J44.9 - Chronic obstructive pulmonary disease, unspecified (8) Hypercholesterolemia Code(s): E78.00 - PURE HYPERCHOLESTEROLEMIA, UNSPECIFIED (9) Hypertension Code(s): I10 - ESSENTIAL (PRIMARY) HYPERTENSION Qualifiers: Hypertension type: essential hypertension Qualified Code(s): I10 - Essential (primary) hypertension Assessment/Plan BD TX PRN Symbicort BID O2 No smoking Lasix Daily weights gi f/u DR HURST Problem List - Problems (1) Bronchiectasis Code(s): J47.9 - BRONCHIECTASIS, UNCOMPLICATED (2) Emphysema of lung Code(s): J43.9 - EMPHYSEMA, UNSPECIFIED (3) Anasarca Code(s): R60.1 - GENERALIZED EDEMA (4) SOB (shortness of breath) Code(s): R06.02 - SHORTNESS OF BREATH (5) Anxiety Code(s): F41.9 - ANXIETY DISORDER, UNSPECIFIED (6) Nicotine dependence Code(s): F17.200 - NICOTINE DEPENDENCE, UNSPECIFIED, UNCOMPLICATED (7) COPD (chronic obstructive pulmonary disease) Code(s): J44.9 - CHRONIC OBSTRUCTIVE PULMONARY DISEASE, UNSPECIFIED Qualifiers: COPD type: unspecified COPD Qualified Code(s): J44.9 - Chronic obstructive pulmonary disease, unspecified (8) Hypercholesterolemia Code(s): E78.00 - PURE HYPERCHOLESTEROLEMIA, UNSPECIFIED (9) Hypertension Code(s): I10 - ESSENTIAL (PRIMARY) HYPERTENSION Qualifiers: Hypertension type: essential hypertension Qualified Code(s): I10 - Essential (primary) hypertension
[2018-11-03] MEDS ORDERED: COSYNTROPIN 0.25 MG VIAL IVPUSH ONE ×2 (18:15→20:00)
--- NOTE | 2018-11-03 20:27 | CONSULT ---
Consult Consult Specialty:: endocrine Referred by:: dr.saba orosco Reason for Consultation:: hypotension/adrenal disorder - History of Present Illness Chief Complaint: weakness History of Present Illness: 53 year old female presented from [facility] to the ED with the chief complaint of " Worsening shortness of breath and swelling of the body x 1 week" . Patient was recently admitted at [facility] from 10/10/18 to 10/12/18 for evaluation of COPD Exacerbation and hypoxia, was sent to [facility] for short term pulmonary rehab. Patient states that she started having shortness of breath x 1 week, using about 7-8 pillows at night, disturbed sleep, cannot lay flat but denies chest pain or palpitations.she has had labile blood pressure readings,weakness,light headed and sleepy feeling. - Past Medical History Cardio/Vascular: Yes: HTN Pulmonary: Yes: Bronchitis, COPD, O2 Dependent, Pneumonia. No: Pulmonary Embolus, Pulmonary Fibrosis, Sleep Apnea ...: No Psych: Yes: Anxiety, Depression - Past Surgical History Past Surgical History: Yes: Appendectomy - Alcohol/Substance Use Hx Alcohol Use: Yes - Smoking History Smoking history: Former smoker Have you smoked in the past 12 months: Yes Aproximately how many cigarettes per day: 5 If you are a former smoker, when did you quit?: 10/05/18 "35 days ago" - Social History Usual Living Arrangement: Correction ADL: Independent Home Medications - Allergies Allergies/Adverse Reactions: Allergies Allergy/AdvReac Type Severity Reaction Status Date / Time No Known Allergies Allergy Verified 10/26/18 12:31 - Home Medications Home Medications: Ambulatory Orders Acetaminophen [Tylenol] 650 mg PO ASDIR 10/05/18 Albuterol 0.083% Nebulizer Jyoti [Ventolin 0.083% Nebulizer Soln -] 1 neb NEB QID 10/05/18 Albuterol 2.5/Ipratropium 0.5 [Duoneb -] 1 neb NEB Q4H 10/05/18 Budesonide/Formeterol Fumarate [SYMBICORT 160/4.5mcg -] 1 inh PO BID 10/05/18 Labetalol HCl [Normodyne -] 100 mg PO BID 10/05/18 Mag Hydrox/Al Hydrox/Simeth [Mylanta Oral Suspension -] 1 dose PO ASDIR Melatonin 5 mg PO DAILY 10/05/18 Mirtazapine [Remeron -] 30 mg PO DAILY 10/05/18 Nifedipine [Procardia Xl] 30 mg PO DAILY 10/05/18 95/Iron Fum/Folic/Dha [ + Dha Combo Pack] 1 each PO DAILY 10/05 Sertraline HCl [Zoloft -] 50 mg PO DAILY 10/05/18 Thiamine HCl [B-1] 100 mg PO HS 10/05/18 traZODone HCL [Trazodone HCl] 100 mg PO ASDIR 10/05/18 Albuterol Sulfate Inhaler - [Ventolin HFA Inhaler -] 2 puff IH Q4H PRN 10/08/18 Simvastatin 20 mg PO HS 10/08/18 Aclidinium [place] [Tudorza [place]] 400 mcg IH DAILY 10/12/18 Budesonide/Formeterol Fumarate [SYMBICORT 160/4.5mcg -] 2 puff IH BID inhaler 10/12/18 Nicotine Patch [Nicoderm Patch -] 21 mg TD DAILY patch 10/12/18 Ranitidine [Zantac -] 150 mg PO BID tablet 10/12/18 Sodium Chloride Nasal [place] [[place] Nasal [place] -] 2 spray NS BID spray Furosemide [Lasix -] 40 mg PO DAILY #30 tablet MDD 1 11/02/18 Lisinopril [Prinivil] 20 mg PO BID #60 tablet MDD 2 11/02/18 Family Disease History - Family Disease History Family Disease History: Heart Disease: Father (HTN, ), Mother Review of Systems - Review of Systems Constitutional: reports: Lethargy, Weakness Eyes: reports: No Symptoms HENT: reports: No Symptoms Neck: reports: No Symptoms Cardiovascular: reports: Shortness of Breath Respiratory: reports: Exercise Intolerance, SOB on Exertion Gastrointestinal: reports: Bloating Genitourinary: reports: No Symptoms Breasts: reports: No Symptoms Reported Musculoskeletal: reports: Extremity Pain, Muscle Cramps, Muscle Weakness Neurological: reports: Weakness Endocrine: reports: Unexplained Weight Gain Physical Exam Vital Signs: Vital Signs Temperature 98.1 F 11/03/18 18:00 Pulse Rate 86 11/03/18 18:00 Respiratory Rate 20 11/03/18 18:00 Blood Pressure 141/73 11/03/18 18:00 O2 Sat by Pulse Oximetry (%) 99 11/03/18 09:00 Constitutional: Yes: Calm Eyes: Yes: EOM Intact HENT: Yes: Normocephalic Neck: Yes: Trachea Midline Cardiovascular: Yes: Tachycardia Respiratory: Yes: CTA Bilaterally, Tachypnea Gastrointestinal: Yes: Normal Bowel Sounds ...Rectal Exam: Yes: Deferred Renal/: Yes: WNL Musculoskeletal: Yes: Muscle Weakness Extremities: Yes: Delayed Capillary Refill Edema: LLE: 2+, RLE: 2+ Integumentary: Yes: Onychomycosis Neurological: Yes: Alert, Oriented Labs: CBC, BMP 11/02/18 06:20 11/03/18 06:30 Problem List - Problems (1) Hypotension due to medication Code(s): I95.2 - HYPOTENSION DUE TO DRUGS (2) Abdominal pain Code(s): R10.9 - UNSPECIFIED ABDOMINAL PAIN (3) Anasarca Code(s): R60.1 - GENERALIZED EDEMA (4) CHF (congestive heart failure) Code(s): I50.9 - HEART FAILURE, UNSPECIFIED (5) COPD exacerbation Code(s): J44.1 - CHRONIC OBSTRUCTIVE PULMONARY DISEASE W (ACUTE) EXACERBATION (6) Dysphagia Code(s): R13.10 - DYSPHAGIA, UNSPECIFIED Assessment/Plan Current Active Problems Abdominal pain (Acute) Anasarca (Acute) Azotemia (Acute) Bronchiectasis (Acute) CHF (congestive heart failure) (Acute) COPD exacerbation (Acute) Cholelithiasis (Acute) Dysphagia (Acute) Elevated BUN (Acute) Emphysema of lung (Acute) SOB (shortness of breath) (Acute) Abnormal Lab Results 11/03/18 06:30 Anion Gap 5 L BUN 30 H Calcium 8.3 L Laboratory Results - last 24 hr 11/03/18 06:30 Sodium 139 Potassium 4.5 Chloride 105 Carbon Dioxide 29 Anion Gap 5 L BUN 30 H Creatinine 0.8 Creat Clearance w eGFR > 60 Random Glucose 88 Calcium 8.3 L Laboratory Tests 09/15/18 09/18/18 10/26/18 21:20 01:00 13:30 Sodium Potassium Chloride Carbon Dioxide Anion Gap BUN Creat Clearance w eGFR Calcium Magnesium AST ALT Alkaline Phosphatase Troponin I < 0.02 Total Protein Albumin Lipase 118 TSH Free T4 0.66 L 10/26/18 10/27/18 10/30/18 13:30 07:50 07:00 Sodium Potassium Chloride Carbon Dioxide Anion Gap BUN Creat Clearance w eGFR Calcium Magnesium 2.5 H AST 13 L ALT 30 Alkaline Phosphatase 85 Troponin I Total Protein 6.4 Albumin 3.2 L Lipase TSH 0.83 Free T4 11/03/18 06:30 Sodium 139 Potassium 4.5 Chloride 105 Carbon Dioxide 29 Anion Gap 5 L BUN 30 H Creat Clearance w eGFR > 60 Calcium 8.3 L Magnesium AST ALT Alkaline Phosphatase Troponin I Total Protein Albumin Lipase TSH Free T4 plan; ck orthostatic bp hold labetolol pm dose if bp low 100 systolic cosyntropin stim test for adrenal axis support testing ck cortisol and acth level
[2018-11-03] MEDS ORDERED: traZODone HCL 50 MG TABLET (FP) ONE (21:50)
[2018-11-03] MEDS: MELATONIN 5 MG TABLETS PO PRN (22:01)
[2018-11-03] MEDS: ATORVASTATIN CA 10 MG TABLET (FP) PO SCH (22:01)
[2018-11-03] MEDS: traZODone HCL 100 MG TABLET (FP) PO SCH (22:01)
[2018-11-03] MEDS: THIAMINE HCL 100 MG TABLET (FP) PO SCH (22:02)
[2018-11-03] MEDS: MIRTAZAPINE 15 MG TABLET (FP) PO SCH (22:02)
[2018-11-04] MEDS ORDERED: ALBUTEROL SO4 2.5/IPRATROPIUM 0.5 INH SOL 3 ML VIAL.NEB. NEB ONE (02:04)
[2018-11-04] MEDS: HEPARIN NA (PORCINE) 5,000 UNITS/ML 1ML VIAL SQ SCH ×3 (05:07→22:18)
[2018-11-04] MEDS: ALBUTEROL SO4 2.5/IPRATROPIUM 0.5 INH SOL 3 ML VIAL.NEB. NEB SCH ×4 (07:20→21:25)
[2018-11-04] MEDS ORDERED: PT OWN MED DRAWER 7, Y5N ONE (11:04)
[2018-11-04] MEDS: POLYETHYLENE GLYCOL 3350 119 GM BTL PO SCH ×2 (11:05→22:20)
[2018-11-04] MEDS: NICOTINE 21 MG/24 HOURS TOPICAL PATCH TD SCH (11:05)
[2018-11-04] MEDS: FUROSEMIDE 40 MG TABLET (FP) PO SCH ×2 (11:06→18:16)
[2018-11-04] MEDS: MULTIVITAMINS (DAILY MVI) TABLET (FP) PO SCH (11:07)
[2018-11-04] MEDS: LABETALOL HCL 100 MG TABLET (FP) PO SCH ×2 (11:07→22:19)
[2018-11-04] MEDS: PANTOPRAZOLE 40 MG TABLET (FP) PO SCH (11:07)
[2018-11-04] MEDS: SERTRALINE HCL 50 MG TABLET (FP) PO SCH (11:07)
[2018-11-04] MEDS: SODIUM CHLORIDE NASAL SPRAY 44 ML BOTTLE NS SCH ×2 (11:08→22:18)
[2018-11-04] MEDS: BUDESONIDE/FORMETEROL FUMARATE 160/4.5 mcg INHALER IH SCH ×2 (12:05→22:17)
[2018-11-04] MEDS: TIOTROPIUM BROMIDE 2.5 MCG (SPIRIVA) RESPIMAT INHALER IH SCH (12:05)
--- NOTE | 2018-11-04 12:29 | PN ---
Progress Note, Physician - Current Medication List Current Medications: Active Medications Acetaminophen (Tylenol -) 650 mg PO Q6H PRN PRN Reason: FEVER Last Admin: 11/03/18 12:26 Dose: 650 mg Al Hydroxide/Mg Hydroxide (Mylanta Oral Suspension -) 30 ml PO Q6H PRN PRN Reason: DYSPEPSIA Last Admin: 10/30/18 18:44 Dose: 30 ml Albuterol Sulfate (Ventolin Hfa Inhaler -) 2 puff IH Q4H PRN PRN Reason: SHORT OF BREATH/WHEEZING Albuterol/Ipratropium (Duoneb -) 1 amp NEB RQID [facility] Last Admin: 11/04/18 11:35 Dose: 1 amp Atorvastatin Calcium (Lipitor -) 10 mg PO HS [facility] Last Admin: 11/03/18 22:01 Dose: 10 mg Budesonide/Formoterol Fumarate (Symbicort 160/4.5mcg -) 2 puff IH BID [facility] Last Admin: 11/04/18 12:05 Dose: 2 puff Furosemide (Lasix -) 40 mg PO DAILY [facility] Last Admin: 11/04/18 11:06 Dose: Not Given Heparin Sodium (Porcine) (Heparin -) 5,000 unit SQ TID [facility] Last Admin: 11/04/18 05:07 Dose: Not Given Labetalol HCl (Normodyne -) 100 mg PO BID [facility] Last Admin: 11/04/18 11:07 Dose: 100 mg Melatonin (Melatonin) 5 mg PO HS PRN PRN Reason: INSOMNIA Last Admin: 11/03/18 22:01 Dose: 5 mg Mirtazapine (Remeron -) 30 mg PO HS [facility] Last Admin: 11/03/18 22:02 Dose: Not Given Multivitamins/Minerals/Vitamin C (Tab-A-Vit -) 1 tab PO DAILY [facility] Last Admin: 11/04/18 11:07 Dose: 1 tab Nicotine (Nicoderm Patch -) 21 mg TD DAILY [facility] Last Admin: 11/04/18 11:05 Dose: Not Given Pantoprazole Sodium (Protonix -) 40 mg PO DAILY [facility] Last Admin: 11/04/18 11:07 Dose: 40 mg Polyethylene Glycol (Miralax (For Daily Use) -) 17 gm PO BID [facility] Last Admin: 11/04/18 11:05 Dose: Not Given Sertraline HCl (Zoloft -) 50 mg PO DAILY [facility] Last Admin: 11/04/18 11:07 Dose: 50 mg Simethicone (Mylicon -) 80 mg PO QID PRN PRN Reason: DYSPEPSIA Last Admin: 11/02/18 12:28 Dose: 80 mg Sodium Chloride ([place] Nasal [place] -) 2 spray NS BID [facility] Last Admin: 11/04/18 11:08 Dose: 2 spray Thiamine HCl (Vitamin B1 -) 100 mg PO [facility] Last Admin: 11/03/18 22:02 Dose: 100 mg Tiotropium [place] (Spiriva Respimat) 2 puff IH DAILY [facility] Last Admin: 11/04/18 12:05 Dose: 2 puff Trazodone HCl (Desyrel -) 100 mg PO [facility] Last Admin: 11/03/18 22:01 Dose: 100 mg - Objective Vital Signs: Vital Signs Temperature 98.4 F 11/04/18 09:42 Pulse Rate 100 H 11/04/18 09:42 Respiratory Rate 20 11/04/18 09:42 Blood Pressure 105/52 L 11/04/18 09:42 O2 Sat by Pulse Oximetry (%) 98 11/03/18 21:00 Neck: Yes: Supple Cardiovascular: Yes: Regular Rate and Rhythm Respiratory: Yes: Regular, CTA Bilaterally Labs: CBC, BMP 11/02/18 06:20 11/03/18 06:30 Problem List - Problems (1) CHF (congestive heart failure) Code(s): I50.9 - HEART FAILURE, UNSPECIFIED (2) COPD exacerbation Code(s): J44.1 - CHRONIC OBSTRUCTIVE PULMONARY DISEASE W (ACUTE) EXACERBATION (3) Hypertension Code(s): I10 - ESSENTIAL (PRIMARY) HYPERTENSION Qualifiers: Hypertension type: essential hypertension Qualified Code(s): I10 - Essential (primary) hypertension (4) Abdominal pain Code(s): R10.9 - UNSPECIFIED ABDOMINAL PAIN (5) Depression Code(s): F32.9 - MAJOR DEPRESSIVE DISORDER, SINGLE EPISODE, UNSPECIFIED Qualifiers: Depression Type: unspecified Qualified Code(s): F32.9 - Major depressive disorder, single episode, unspecified Assessment/Plan - Problems (1) Azotemia Assessment/Plan: renal on board ON LASIX HYPOTENSION YESTERDAY Code(s): R79.89 - OTHER SPECIFIED ABNORMAL FINDINGS OF BLOOD CHEMISTRY (2) CHF (congestive heart failure) Assessment/Plan: appreciate cardiology consult ordered echo change lasix to po Code(s): I50.9 - HEART FAILURE, UNSPECIFIED (3) COPD exacerbation Assessment/Plan: oxygen bronchodilators Code(s): J44.1 - CHRONIC OBSTRUCTIVE PULMONARY DISEASE W (ACUTE) EXACERBATION (4) Dysphagia Assessment/Plan: barium series done gi onboard [facility] saw patient Code(s): R13.10 - DYSPHAGIA, UNSPECIFIED
--- NOTE | 2018-11-04 13:49 | PN ---
Progress Note, Physician History of Present Illness: PULMONARY ALERT,NO DISTRESS,COMFORTABLE - Current Medication List Current Medications: Active Medications Acetaminophen (Tylenol -) 650 mg PO Q6H PRN PRN Reason: FEVER Last Admin: 11/03/18 12:26 Dose: 650 mg Al Hydroxide/Mg Hydroxide (Mylanta Oral Suspension -) 30 ml PO Q6H PRN PRN Reason: DYSPEPSIA Last Admin: 10/30/18 18:44 Dose: 30 ml Albuterol Sulfate (Ventolin Hfa Inhaler -) 2 puff IH Q4H PRN PRN Reason: SHORT OF BREATH/WHEEZING Albuterol/Ipratropium (Duoneb -) 1 amp NEB RQID [facility] Last Admin: 11/04/18 11:35 Dose: 1 amp Atorvastatin Calcium (Lipitor -) 10 mg PO HS [facility] Last Admin: 11/03/18 22:01 Dose: 10 mg Budesonide/Formoterol Fumarate (Symbicort 160/4.5mcg -) 2 puff IH BID [facility] Last Admin: 11/04/18 12:05 Dose: 2 puff Furosemide (Lasix -) 40 mg PO DAILY [facility] Last Admin: 11/04/18 11:06 Dose: Not Given Heparin Sodium (Porcine) (Heparin -) 5,000 unit SQ TID [facility] Last Admin: 11/04/18 05:07 Dose: Not Given Labetalol HCl (Normodyne -) 100 mg PO BID [facility] Last Admin: 11/04/18 11:07 Dose: 100 mg Melatonin (Melatonin) 5 mg PO HS PRN PRN Reason: INSOMNIA Last Admin: 11/03/18 22:01 Dose: 5 mg Mirtazapine (Remeron -) 30 mg PO HS [facility] Last Admin: 11/03/18 22:02 Dose: Not Given Multivitamins/Minerals/Vitamin C (Tab-A-Vit -) 1 tab PO DAILY [facility] Last Admin: 11/04/18 11:07 Dose: 1 tab Nicotine (Nicoderm Patch -) 21 mg TD DAILY [facility] Last Admin: 11/04/18 11:05 Dose: Not Given Pantoprazole Sodium (Protonix -) 40 mg PO DAILY [facility] Last Admin: 11/04/18 11:07 Dose: 40 mg Polyethylene Glycol (Miralax (For Daily Use) -) 17 gm PO BID [facility] Last Admin: 11/04/18 11:05 Dose: Not Given Sertraline HCl (Zoloft -) 50 mg PO DAILY [facility] Last Admin: 11/04/18 11:07 Dose: 50 mg Simethicone (Mylicon -) 80 mg PO QID PRN PRN Reason: DYSPEPSIA Last Admin: 11/02/18 12:28 Dose: 80 mg Sodium Chloride ([place] Nasal [place] -) 2 spray NS BID [facility] Last Admin: 11/04/18 11:08 Dose: 2 spray Thiamine HCl (Vitamin B1 -) 100 mg PO [facility] Last Admin: 11/03/18 22:02 Dose: 100 mg Tiotropium [place] (Spiriva Respimat) 2 puff IH DAILY [facility] Last Admin: 11/04/18 12:05 Dose: 2 puff Trazodone HCl (Desyrel -) 100 mg PO [facility] Last Admin: 11/03/18 22:01 Dose: 100 mg - Objective Vital Signs: Vital Signs Temperature 98.4 F 11/04/18 09:42 Pulse Rate 100 H 11/04/18 09:42 Respiratory Rate 20 11/04/18 09:42 Blood Pressure 105/52 L 11/04/18 09:42 O2 Sat by Pulse Oximetry (%) 98 11/03/18 21:00 Constitutional: Yes: Well Nourished, Calm Eyes: Yes: WNL HENT: Yes: WNL Neck: Yes: WNL Cardiovascular: Yes: Regular Rate and Rhythm, S1, S2 Respiratory: Yes: Diminished Gastrointestinal: Yes: Normal Bowel Sounds, Soft Extremities: Yes: WNL Edema: Yes Labs: CBC, BMP Assessment/Plan Problem List - Problems (1) Bronchiectasis Code(s): J47.9 - BRONCHIECTASIS, UNCOMPLICATED (2) Emphysema of lung Code(s): J43.9 - EMPHYSEMA, UNSPECIFIED (3) Anasarca Code(s): R60.1 - GENERALIZED EDEMA (4) SOB (shortness of breath) Code(s): R06.02 - SHORTNESS OF BREATH (5) Anxiety Code(s): F41.9 - ANXIETY DISORDER, UNSPECIFIED (6) Nicotine dependence Code(s): F17.200 - NICOTINE DEPENDENCE, UNSPECIFIED, UNCOMPLICATED (7) COPD (chronic obstructive pulmonary disease) Code(s): J44.9 - CHRONIC OBSTRUCTIVE PULMONARY DISEASE, UNSPECIFIED Qualifiers: COPD type: unspecified COPD Qualified Code(s): J44.9 - Chronic obstructive pulmonary disease, unspecified (8) Hypercholesterolemia Code(s): E78.00 - PURE HYPERCHOLESTEROLEMIA, UNSPECIFIED (9) Hypertension Code(s): I10 - ESSENTIAL (PRIMARY) HYPERTENSION Qualifiers: Hypertension type: essential hypertension Qualified Code(s): I10 - Essential (primary) hypertension Assessment/Plan BD TX PRN Symbicort BID O2 No smoking Lasix Daily weights DR HURST Problem List - Problems (1) Bronchiectasis Code(s): J47.9 - BRONCHIECTASIS, UNCOMPLICATED (2) Emphysema of lung Code(s): J43.9 - EMPHYSEMA, UNSPECIFIED (3) Anasarca Code(s): R60.1 - GENERALIZED EDEMA (4) SOB (shortness of breath) Code(s): R06.02 - SHORTNESS OF BREATH (5) Anxiety Code(s): F41.9 - ANXIETY DISORDER, UNSPECIFIED (6) Nicotine dependence Code(s): F17.200 - NICOTINE DEPENDENCE, UNSPECIFIED, UNCOMPLICATED (7) COPD (chronic obstructive pulmonary disease) Code(s): J44.9 - CHRONIC OBSTRUCTIVE PULMONARY DISEASE, UNSPECIFIED Qualifiers: COPD type: unspecified COPD Qualified Code(s): J44.9 - Chronic obstructive pulmonary disease, unspecified (8) Hypercholesterolemia Code(s): E78.00 - PURE HYPERCHOLESTEROLEMIA, UNSPECIFIED (9) Hypertension Code(s): I10 - ESSENTIAL (PRIMARY) HYPERTENSION Qualifiers: Hypertension type: essential hypertension Qualified Code(s): I10 - Essential (primary) hypertension
[2018-11-04] MEDS ORDERED: traZODone HCL 50 MG TABLET (FP) ONE (22:13)
[2018-11-04] MEDS: THIAMINE HCL 100 MG TABLET (FP) PO SCH (22:19)
[2018-11-04] MEDS: traZODone HCL 100 MG TABLET (FP) PO SCH (22:19)
[2018-11-04] MEDS: MIRTAZAPINE 15 MG TABLET (FP) PO SCH (22:19)
[2018-11-04] MEDS: ATORVASTATIN CA 10 MG TABLET (FP) PO SCH (22:20)
[2018-11-04] MEDS: MELATONIN 5 MG TABLETS PO PRN (23:52)
[2018-11-05] MEDS: HEPARIN NA (PORCINE) 5,000 UNITS/ML 1ML VIAL SQ SCH ×3 (05:38→21:23)
[2018-11-05] MEDS: ALBUTEROL SO4 2.5/IPRATROPIUM 0.5 INH SOL 3 ML VIAL.NEB. NEB SCH ×4 (07:15→21:00)
[2018-11-05] MEDS ORDERED: PT OWN MED DRAWER 7, Y5N ONE (09:26)
[2018-11-05] MEDS: NICOTINE 21 MG/24 HOURS TOPICAL PATCH TD SCH (09:47)
[2018-11-05] MEDS: POLYETHYLENE GLYCOL 3350 119 GM BTL PO SCH ×2 (09:47→21:24)
[2018-11-05] MEDS: FUROSEMIDE 40 MG TABLET (FP) PO SCH (09:48)
[2018-11-05] MEDS: SERTRALINE HCL 50 MG TABLET (FP) PO SCH (09:48)
[2018-11-05] MEDS: MULTIVITAMINS (DAILY MVI) TABLET (FP) PO SCH (09:48)
[2018-11-05] MEDS: LABETALOL HCL 100 MG TABLET (FP) PO SCH ×2 (09:48→21:24)
[2018-11-05] MEDS: PANTOPRAZOLE 40 MG TABLET (FP) PO SCH (09:48)
[2018-11-05] MEDS: SODIUM CHLORIDE NASAL SPRAY 44 ML BOTTLE NS SCH ×2 (09:50→21:24)
[2018-11-05] MEDS: BUDESONIDE/FORMETEROL FUMARATE 160/4.5 mcg INHALER IH SCH ×2 (09:50→21:25)
[2018-11-05] MEDS: TIOTROPIUM BROMIDE 2.5 MCG (SPIRIVA) RESPIMAT INHALER IH SCH (09:51)
--- NOTE | 2018-11-05 11:58 | PN ---
Progress Note, Physician Chief Complaint: patient seen and examined no distress ambulating to bathroom BP noted will decrease labetolol dose leg edema reduced awaiting cortisol and ACTH level - Current Medication List Current Medications: Active Medications Acetaminophen (Tylenol -) 650 mg PO Q6H PRN PRN Reason: FEVER Last Admin: 11/03/18 12:26 Dose: 650 mg Al Hydroxide/Mg Hydroxide (Mylanta Oral Suspension -) 30 ml PO Q6H PRN PRN Reason: DYSPEPSIA Last Admin: 10/30/18 18:44 Dose: 30 ml Albuterol Sulfate (Ventolin Hfa Inhaler -) 2 puff IH Q4H PRN PRN Reason: SHORT OF BREATH/WHEEZING Albuterol/Ipratropium (Duoneb -) 1 amp NEB RQID [facility] Last Admin: 11/05/18 11:06 Dose: 1 amp Atorvastatin Calcium (Lipitor -) 10 mg PO HS [facility] Last Admin: 11/04/18 22:20 Dose: 10 mg Budesonide/Formoterol Fumarate (Symbicort 160/4.5mcg -) 2 puff IH BID [facility] Last Admin: 11/05/18 09:50 Dose: 2 puff Furosemide (Lasix -) 40 mg PO DAILY [facility] Last Admin: 11/05/18 09:48 Dose: 40 mg Heparin Sodium (Porcine) (Heparin -) 5,000 unit SQ TID [facility] Last Admin: 11/05/18 05:38 Dose: 5,000 unit Labetalol HCl (Normodyne -) 50 mg PO BID [facility] Melatonin (Melatonin) 5 mg PO HS PRN PRN Reason: INSOMNIA Last Admin: 11/04/18 23:52 Dose: 5 mg Mirtazapine (Remeron -) 30 mg PO HS [facility] Last Admin: 11/04/18 22:19 Dose: Not Given Multivitamins/Minerals/Vitamin C (Tab-A-Vit -) 1 tab PO DAILY [facility] Last Admin: 11/05/18 09:48 Dose: 1 tab Nicotine (Nicoderm Patch -) 21 mg TD DAILY [facility] Last Admin: 11/05/18 09:47 Dose: Not Given Pantoprazole Sodium (Protonix -) 40 mg PO DAILY [facility] Last Admin: 11/05/18 09:48 Dose: 40 mg Polyethylene Glycol (Miralax (For Daily Use) -) 17 gm PO BID [facility] Last Admin: 11/05/18 09:47 Dose: Not Given Sertraline HCl (Zoloft -) 50 mg PO DAILY [facility] Last Admin: 11/05/18 09:48 Dose: 50 mg Simethicone (Mylicon -) 80 mg PO QID PRN PRN Reason: DYSPEPSIA Last Admin: 11/02/18 12:28 Dose: 80 mg Sodium Chloride ([place] Nasal [place] -) 2 spray NS BID [facility] Last Admin: 11/05/18 09:50 Dose: 2 spray Thiamine HCl (Vitamin B1 -) 100 mg PO HS [facility] Last Admin: 11/04/18 22:19 Dose: 100 mg Tiotropium [place] (Spiriva Respimat) 2 puff IH DAILY [facility] Last Admin: 11/05/18 09:51 Dose: 2 puff Trazodone HCl (Desyrel -) 100 mg PO HS [facility] Last Admin: 11/04/18 22:19 Dose: 100 mg - Objective Vital Signs: Vital Signs Temperature 97.9 F 11/05/18 09:16 Pulse Rate 99 H 11/05/18 09:16 Respiratory Rate 20 11/05/18 09:16 Blood Pressure 110/70 11/05/18 09:16 O2 Sat by Pulse Oximetry (%) 97 11/05/18 09:00 Constitutional: Yes: Calm Cardiovascular: Yes: Regular Rate and Rhythm, S1, S2 Respiratory: Yes: CTA Bilaterally Gastrointestinal: Yes: Normal Bowel Sounds, Soft Edema: Yes (slight pedal edema) Neurological: Yes: Alert, Oriented Labs: CBC, BMP 11/02/18 06:20 11/03/18 06:30 Problem List - Problems (1) Azotemia Assessment/Plan: renal on board renal function improved Code(s): R79.89 - OTHER SPECIFIED ABNORMAL FINDINGS OF BLOOD CHEMISTRY (2) CHF (congestive heart failure) Assessment/Plan: appreciate cardiology consult ordered echo report shows left ventricle size is normal and function is normal oral lasix Code(s): I50.9 - HEART FAILURE, UNSPECIFIED (3) COPD exacerbation Assessment/Plan: oxygen bronchodilators Code(s): J44.1 - CHRONIC OBSTRUCTIVE PULMONARY DISEASE W (ACUTE) EXACERBATION (4) Dysphagia Assessment/Plan: barium series done normal upper GI series gi on board fazal begum saw patient MBS done swallowing is within normal limits Code(s): R13.10 - DYSPHAGIA, UNSPECIFIED
--- NOTE | 2018-11-05 12:41 | PN ---
Progress Note, Physician History of Present Illness: PULMONARY ALERT,COMFORTABLE,-RES DISTRESS - Current Medication List Current Medications: Active Medications Acetaminophen (Tylenol -) 650 mg PO Q6H PRN PRN Reason: FEVER Last Admin: 11/03/18 12:26 Dose: 650 mg Al Hydroxide/Mg Hydroxide (Mylanta Oral Suspension -) 30 ml PO Q6H PRN PRN Reason: DYSPEPSIA Last Admin: 10/30/18 18:44 Dose: 30 ml Albuterol Sulfate (Ventolin Hfa Inhaler -) 2 puff IH Q4H PRN PRN Reason: SHORT OF BREATH/WHEEZING Albuterol/Ipratropium (Duoneb -) 1 amp NEB RQID [facility] Last Admin: 11/05/18 11:06 Dose: 1 amp Atorvastatin Calcium (Lipitor -) 10 mg PO HS [facility] Last Admin: 11/04/18 22:20 Dose: 10 mg Budesonide/Formoterol Fumarate (Symbicort 160/4.5mcg -) 2 puff IH BID [facility] Last Admin: 11/05/18 09:50 Dose: 2 puff Furosemide (Lasix -) 40 mg PO DAILY [facility] Last Admin: 11/05/18 09:48 Dose: 40 mg Heparin Sodium (Porcine) (Heparin -) 5,000 unit SQ TID [facility] Last Admin: 11/05/18 05:38 Dose: 5,000 unit Labetalol HCl (Normodyne -) 50 mg PO BID [facility] Melatonin (Melatonin) 5 mg PO HS PRN PRN Reason: INSOMNIA Last Admin: 11/04/18 23:52 Dose: 5 mg Mirtazapine (Remeron -) 30 mg PO HS [facility] Last Admin: 11/04/18 22:19 Dose: Not Given Multivitamins/Minerals/Vitamin C (Tab-A-Vit -) 1 tab PO DAILY [facility] Last Admin: 11/05/18 09:48 Dose: 1 tab Nicotine (Nicoderm Patch -) 21 mg TD DAILY [facility] Last Admin: 11/05/18 09:47 Dose: Not Given Pantoprazole Sodium (Protonix -) 40 mg PO DAILY [facility] Last Admin: 11/05/18 09:48 Dose: 40 mg Polyethylene Glycol (Miralax (For Daily Use) -) 17 gm PO BID [facility] Last Admin: 11/05/18 09:47 Dose: Not Given Sertraline HCl (Zoloft -) 50 mg PO DAILY [facility] Last Admin: 11/05/18 09:48 Dose: 50 mg Simethicone (Mylicon -) 80 mg PO QID PRN PRN Reason: DYSPEPSIA Last Admin: 11/02/18 12:28 Dose: 80 mg Sodium Chloride ([place] Nasal [place] -) 2 spray NS BID [facility] Last Admin: 11/05/18 09:50 Dose: 2 spray Thiamine HCl (Vitamin B1 -) [address] [facility] Last Admin: 11/04/18 22:19 Dose: 100 mg Tiotropium [place] (Spiriva Respimat) 2 puff IH DAILY [facility] Last Admin: 11/05/18 09:51 Dose: 2 puff Trazodone HCl (Desyrel -) [address] [facility] Last Admin: 11/04/18 22:19 Dose: 100 mg - Objective Vital Signs: Vital Signs Temperature 97.9 F 11/05/18 09:16 Pulse Rate 95 H 11/05/18 12:36 Respiratory Rate 20 11/05/18 09:16 Blood Pressure 115/73 11/05/18 12:36 O2 Sat by Pulse Oximetry (%) 97 11/05/18 09:00 Constitutional: Yes: Well Nourished, Calm Eyes: Yes: WNL HENT: Yes: WNL Neck: Yes: WNL Cardiovascular: Yes: Regular Rate and Rhythm, S1, S2 Respiratory: Yes: Diminished Gastrointestinal: Yes: Normal Bowel Sounds, Soft Extremities: Yes: WNL Edema: Yes Labs: CBC, BMP 11/02/18 06:20 11/03/18 06:30 Assessment/Plan Problem List - Problems (1) Bronchiectasis Code(s): J47.9 - BRONCHIECTASIS, UNCOMPLICATED (2) Emphysema of lung Code(s): J43.9 - EMPHYSEMA, UNSPECIFIED (3) Anasarca Code(s): R60.1 - GENERALIZED EDEMA (4) SOB (shortness of breath) Code(s): R06.02 - SHORTNESS OF BREATH (5) Anxiety Code(s): F41.9 - ANXIETY DISORDER, UNSPECIFIED (6) Nicotine dependence Code(s): F17.200 - NICOTINE DEPENDENCE, UNSPECIFIED, UNCOMPLICATED (7) COPD (chronic obstructive pulmonary disease) Code(s): J44.9 - CHRONIC OBSTRUCTIVE PULMONARY DISEASE, UNSPECIFIED Qualifiers: COPD type: unspecified COPD Qualified Code(s): J44.9 - Chronic obstructive pulmonary disease, unspecified (8) Hypercholesterolemia Code(s): E78.00 - PURE HYPERCHOLESTEROLEMIA, UNSPECIFIED (9) Hypertension Code(s): I10 - ESSENTIAL (PRIMARY) HYPERTENSION Qualifiers: Hypertension type: essential hypertension Qualified Code(s): I10 - Essential (primary) hypertension Assessment/Plan BD TX PRN Symbicort BID O2 No smoking Lasix Daily weights DR HURST Problem List - Problems (1) Bronchiectasis Code(s): J47.9 - BRONCHIECTASIS, UNCOMPLICATED (2) Emphysema of lung Code(s): J43.9 - EMPHYSEMA, UNSPECIFIED (3) Anasarca Code(s): R60.1 - GENERALIZED EDEMA (4) SOB (shortness of breath) Code(s): R06.02 - SHORTNESS OF BREATH (5) Anxiety Code(s): F41.9 - ANXIETY DISORDER, UNSPECIFIED (6) Nicotine dependence Code(s): F17.200 - NICOTINE DEPENDENCE, UNSPECIFIED, UNCOMPLICATED (7) COPD (chronic obstructive pulmonary disease) Code(s): J44.9 - CHRONIC OBSTRUCTIVE PULMONARY DISEASE, UNSPECIFIED Qualifiers: COPD type: unspecified COPD Qualified Code(s): J44.9 - Chronic obstructive pulmonary disease, unspecified (8) Hypercholesterolemia Code(s): E78.00 - PURE HYPERCHOLESTEROLEMIA, UNSPECIFIED (9) Hypertension Code(s): I10 - ESSENTIAL (PRIMARY) HYPERTENSION Qualifiers: Hypertension type: essential hypertension Qualified Code(s): I10 - Essential (primary) hypertension
--- NOTE | 2018-11-05 12:44 | PN ---
Progress Note, Physician History of Present Illness: Pt seen and examined at bedside. She is awake and alert. She complains of edema. Her bp is slowly improving. - Current Medication List Current Medications: Active Medications Acetaminophen (Tylenol -) 650 mg PO Q6H PRN PRN Reason: FEVER Last Admin: 11/03/18 12:26 Dose: 650 mg Al Hydroxide/Mg Hydroxide (Mylanta Oral Suspension -) 30 ml PO Q6H PRN PRN Reason: DYSPEPSIA Last Admin: 10/30/18 18:44 Dose: 30 ml Albuterol Sulfate (Ventolin Hfa Inhaler -) 2 puff IH Q4H PRN PRN Reason: SHORT OF BREATH/WHEEZING Albuterol/Ipratropium (Duoneb -) 1 amp NEB RQID [facility] Last Admin: 11/05/18 11:06 Dose: 1 amp Atorvastatin Calcium (Lipitor -) 10 mg PO HS [facility] Last Admin: 11/04/18 22:20 Dose: 10 mg Budesonide/Formoterol Fumarate (Symbicort 160/4.5mcg -) 2 puff IH BID [facility] Last Admin: 11/05/18 09:50 Dose: 2 puff Furosemide (Lasix -) 40 mg PO DAILY [facility] Last Admin: 11/05/18 09:48 Dose: 40 mg Heparin Sodium (Porcine) (Heparin -) 5,000 unit SQ TID [facility] Last Admin: 11/05/18 05:38 Dose: 5,000 unit Labetalol HCl (Normodyne -) 50 mg PO BID [facility] Melatonin (Melatonin) 5 mg PO HS PRN PRN Reason: INSOMNIA Last Admin: 11/04/18 23:52 Dose: 5 mg Mirtazapine (Remeron -) 30 mg PO HS [facility] Last Admin: 11/04/18 22:19 Dose: Not Given Multivitamins/Minerals/Vitamin C (Tab-A-Vit -) 1 tab PO DAILY [facility] Last Admin: 11/05/18 09:48 Dose: 1 tab Nicotine (Nicoderm Patch -) 21 mg TD DAILY [facility] Last Admin: 11/05/18 09:47 Dose: Not Given Pantoprazole Sodium (Protonix -) 40 mg PO DAILY [facility] Last Admin: 11/05/18 09:48 Dose: 40 mg Polyethylene Glycol (Miralax (For Daily Use) -) 17 gm PO BID [facility] Last Admin: 11/05/18 09:47 Dose: Not Given Sertraline HCl (Zoloft -) 50 mg PO DAILY [facility] Last Admin: 11/05/18 09:48 Dose: 50 mg Simethicone (Mylicon -) 80 mg PO QID PRN PRN Reason: DYSPEPSIA Last Admin: 11/02/18 12:28 Dose: 80 mg Sodium Chloride ([place] Nasal [place] -) 2 spray NS BID [facility] Last Admin: 11/05/18 09:50 Dose: 2 spray Thiamine HCl (Vitamin B1 -) 100 mg PO HS [facility] Last Admin: 11/04/18 22:19 Dose: 100 mg Tiotropium [place] (Spiriva Respimat) 2 puff IH DAILY [facility] Last Admin: 11/05/18 09:51 Dose: 2 puff Trazodone HCl (Desyrel -) 100 mg PO HS [facility] Last Admin: 11/04/18 22:19 Dose: 100 mg - Objective Vital Signs: Vital Signs Temperature 97.9 F 11/05/18 09:16 Pulse Rate 95 H 11/05/18 12:36 Respiratory Rate 20 11/05/18 09:16 Blood Pressure 115/73 11/05/18 12:36 O2 Sat by Pulse Oximetry (%) 97 11/05/18 09:00 Constitutional: Yes: Calm Eyes: Yes: Conjunctiva Clear HENT: Yes: Atraumatic Cardiovascular: Yes: S1, S2 Respiratory: Yes: Diminished, On Nasal O2 Gastrointestinal: Yes: Soft, Abdomen, Obese Genitourinary: Yes: WNL Musculoskeletal: Yes: WNL Edema: LLE: 1+, RLE: 1+ Neurological: Yes: Oriented Psychiatric: Yes: Oriented Labs: CBC, BMP 11/02/18 06:20 11/03/18 06:30 Problem List - Problems (1) Azotemia Code(s): R79.89 - OTHER SPECIFIED ABNORMAL FINDINGS OF BLOOD CHEMISTRY (2) COPD exacerbation Code(s): J44.1 - CHRONIC OBSTRUCTIVE PULMONARY DISEASE W (ACUTE) EXACERBATION (3) Elevated BUN Code(s): R79.9 - ABNORMAL FINDING OF BLOOD CHEMISTRY, UNSPECIFIED Assessment/Plan Current Medications Generic Name Dose Route Start Last Admin Trade Name Freq PRN Reason Stop Dose Admin Acetaminophen 650 mg 10/27/18 20:36 11/03/18 12:26 Tylenol - PO 650 mg Q6H PRN Administration FEVER Al Hydroxide/Mg Hydroxide 30 ml 10/30/18 12:40 10/30/18 18:44 Mylanta Oral Suspension - PO 30 ml Q6H PRN Administration DYSPEPSIA Albuterol Sulfate 2 puff 11/01/18 04:12 Ventolin Hfa Inhaler - IH Q4H PRN SHORT OF BREATH/WHEEZING Albuterol/Ipratropium 1 amp 11/01/18 20:00 11/05/18 11:06 Duoneb - NEB 1 amp RQID [facility] Administration Atorvastatin Calcium 10 mg 10/26/18 22:00 11/04/18 22:20 Lipitor - PO 10 mg HS [facility] Administration Budesonide/Formoterol Fumarate 2 puff 11/01/18 13:00 11/05/18 09:50 Symbicort 160/4.5mcg - IH 2 puff BID [facility] Administration Furosemide 40 mg 11/02/18 10:00 11/05/18 09:48 Lasix - PO 40 mg DAILY [facility] Administration Heparin Sodium (Porcine) 5,000 unit 10/27/18 06:00 11/05/18 05:38 Heparin - SQ 5,000 unit TID [facility] Administration Labetalol HCl 50 mg 11/05/18 11:51 Normodyne - PO BID [facility] Melatonin 5 mg 10/26/18 20:41 11/04/18 23:52 Melatonin PO 5 mg HS PRN Administration INSOMNIA Mirtazapine 30 mg 10/27/18 22:00 11/04/18 22:19 Remeron - PO Not Given HS [facility] Multivitamins/Minerals/Vitamin C 1 tab 10/27/18 10:00 11/05/18 09:48 Tab-A-Vit - PO 1 tab DAILY [facility] Administration Nicotine 21 mg 10/26/18 20:45 11/05/18 09:47 Nicoderm Patch - TD Not Given DAILY [facility] Pantoprazole Sodium 40 mg 10/31/18 10:00 11/05/18 09:48 Protonix - PO 40 mg DAILY [facility] Administration Polyethylene Glycol 17 gm 10/31/18 10:00 11/05/18 09:47 Miralax (For Daily Use) - PO Not Given BID [facility] Sertraline HCl 50 mg 10/26/18 22:00 11/05/18 09:48 Zoloft - PO 50 mg DAILY [facility] Administration Simethicone 80 mg 11/02/18 11:53 11/02/18 12:28 Mylicon - PO 80 mg QID PRN Administration DYSPEPSIA Sodium Chloride 2 spray 10/26/18 22:00 11/05/18 09:50 [place] Nasal [place] - NS 2 spray BID [facility] Administration Thiamine HCl 100 mg 10/26/18 22:00 11/04/18 22:19 Vitamin B1 - PO 100 mg HS [facility] Administration Tiotropium [place] 2 puff 10/27/18 10:00 11/05/18 09:51 Spiriva Respimat IH 2 puff DAILY [facility] Administration Trazodone HCl 100 mg 10/26/18 22:00 11/04/18 22:19 Desyrel - PO 100 mg HS [facility] Administration Laboratory Tests 11/03/18 06:30 Cortisol AM Sample 4.1 Impression 1. azotemia 2. htn 3. copd 4. emphysema 5. depression 6. active smoker 7. hld 8. hypotension Plan - cortisol level is low - bp meds adjusted - cont lasix - endocrine input appreciated - will follow PRN Dr Saab
[2018-11-05] MEDS ORDERED: traZODone HCL 50 MG TABLET (FP) ONE (21:15)
[2018-11-05] MEDS: ATORVASTATIN CA 10 MG TABLET (FP) PO SCH (21:24)
[2018-11-05] MEDS: THIAMINE HCL 100 MG TABLET (FP) PO SCH (21:24)
[2018-11-05] MEDS: traZODone HCL 100 MG TABLET (FP) PO SCH (21:24)
[2018-11-05] MEDS: MIRTAZAPINE 15 MG TABLET (FP) PO SCH ×2 (21:24→21:30)
--- NOTE | 2018-11-06 00:32 | PN ---
Progress Note, Physician Chief Complaint: still has episodes of hypotension - Current Medication List Current Medications: Active Medications Acetaminophen (Tylenol -) 650 mg PO Q6H PRN PRN Reason: FEVER Last Admin: 11/03/18 12:26 Dose: 650 mg Al Hydroxide/Mg Hydroxide (Mylanta Oral Suspension -) 30 ml PO Q6H PRN PRN Reason: DYSPEPSIA Last Admin: 10/30/18 18:44 Dose: 30 ml Albuterol Sulfate (Ventolin Hfa Inhaler -) 2 puff IH Q4H PRN PRN Reason: SHORT OF BREATH/WHEEZING Albuterol/Ipratropium (Duoneb -) 1 amp NEB RQID [facility] Last Admin: 11/05/18 15:39 Dose: 1 amp Atorvastatin Calcium (Lipitor -) 10 mg PO HS [facility] Last Admin: 11/05/18 21:24 Dose: 10 mg Budesonide/Formoterol Fumarate (Symbicort 160/4.5mcg -) 2 puff IH BID [facility] Last Admin: 11/05/18 21:25 Dose: 2 puff Furosemide (Lasix -) 40 mg PO DAILY [facility] Last Admin: 11/05/18 09:48 Dose: 40 mg Heparin Sodium (Porcine) (Heparin -) 5,000 unit SQ TID [facility] Last Admin: 11/05/18 21:23 Dose: 5,000 unit Labetalol HCl (Normodyne -) 50 mg PO BID [facility] Last Admin: 11/05/18 21:24 Dose: 50 mg Melatonin (Melatonin) 5 mg PO HS PRN PRN Reason: INSOMNIA Last Admin: 11/04/18 23:52 Dose: 5 mg Mirtazapine (Remeron -) 30 mg PO HS [facility] Last Admin: 11/05/18 21:30 Dose: Not Given Multivitamins/Minerals/Vitamin C (Tab-A-Vit -) 1 tab PO DAILY [facility] Last Admin: 11/05/18 09:48 Dose: 1 tab Nicotine (Nicoderm Patch -) 21 mg TD DAILY [facility] Last Admin: 11/05/18 09:47 Dose: Not Given Pantoprazole Sodium (Protonix -) 40 mg PO DAILY [facility] Last Admin: 11/05/18 09:48 Dose: 40 mg Polyethylene Glycol (Miralax (For Daily Use) -) 17 gm PO BID [facility] Last Admin: 11/05/18 21:24 Dose: Not Given Sertraline HCl (Zoloft -) 50 mg PO DAILY [facility] Last Admin: 11/05/18 09:48 Dose: 50 mg Simethicone (Mylicon -) 80 mg PO QID PRN PRN Reason: DYSPEPSIA Last Admin: 11/02/18 12:28 Dose: 80 mg Sodium Chloride ([place] Nasal [place] -) 2 spray NS BID [facility] Last Admin: 11/05/18 21:24 Dose: 2 spray Thiamine HCl (Vitamin B1 -) 100 mg PO [facility] Last Admin: 11/05/18 21:24 Dose: 100 mg Tiotropium [place] (Spiriva Respimat) 2 puff IH DAILY [facility] Last Admin: 11/05/18 09:51 Dose: 2 puff Trazodone HCl (Desyrel -) 100 mg PO [facility] Last Admin: 11/05/18 21:24 Dose: 100 mg - Objective Vital Signs: Vital Signs Temperature 98.8 F 11/05/18 23:00 Pulse Rate 107 H 11/05/18 23:00 Respiratory Rate 20 11/05/18 23:00 Blood Pressure 128/68 11/05/18 23:00 O2 Sat by Pulse Oximetry (%) 97 11/05/18 21:00 Constitutional: Yes: Calm Eyes: Yes: EOM Intact HENT: Yes: Normocephalic Neck: Yes: Trachea Midline Cardiovascular: Yes: Regular Rate and Rhythm Respiratory: Yes: CTA Bilaterally Gastrointestinal: Yes: Normal Bowel Sounds ...Rectal Exam: Yes: Deferred Genitourinary: Yes: WNL Musculoskeletal: Yes: Joint Stiffness, Joint Swelling, Muscle Pain, Muscle Weakness Extremities: Yes: Delayed Capillary Refill Edema: LLE: 1+, RLE: 1+ Neurological: Yes: Alert, Oriented Labs: CBC, BMP 11/02/18 06:20 11/03/18 06:30 Problem List - Problems (1) Hypotension due to medication Code(s): I95.2 - HYPOTENSION DUE TO DRUGS (2) Abdominal pain Code(s): R10.9 - UNSPECIFIED ABDOMINAL PAIN (3) Anasarca Code(s): R60.1 - GENERALIZED EDEMA (4) CHF (congestive heart failure) Code(s): I50.9 - HEART FAILURE, UNSPECIFIED (5) COPD exacerbation Code(s): J44.1 - CHRONIC OBSTRUCTIVE PULMONARY DISEASE W (ACUTE) EXACERBATION (6) Dysphagia Code(s): R13.10 - DYSPHAGIA, UNSPECIFIED Assessment/Plan Current Active Problems Abdominal pain (Acute) Anasarca (Acute) Azotemia (Acute) Bronchiectasis (Acute) CHF (congestive heart failure) (Acute) COPD exacerbation (Acute) Cholelithiasis (Acute) Dysphagia (Acute) Elevated BUN (Acute) Emphysema of lung (Acute) Hypotension due to medication (Acute) SOB (shortness of breath) (Acute) adrenal deficiency Laboratory Tests 11/02/18 11/03/18 11/03/18 06:20 06:30 06:30 Sodium 139 139 Potassium 4.4 4.5 Chloride 105 105 Carbon Dioxide 28 29 Anion Gap 6 L 5 L BUN 30 H Creatinine 0.8 0.8 Creat Clearance w eGFR > 60 > 60 Random Glucose 88 Calcium 8.3 L Cortisol AM Sample 4.1 plan: cosyntropin stim test pending mri pituitary gland prednisone 15mg daily while results pending
[2018-11-06] MEDS: HEPARIN NA (PORCINE) 5,000 UNITS/ML 1ML VIAL SQ SCH ×3 (06:14→22:06)
[2018-11-06] MEDS: ALBUTEROL SO4 2.5/IPRATROPIUM 0.5 INH SOL 3 ML VIAL.NEB. NEB SCH ×4 (07:04→21:15)
[2018-11-06] MEDS: BUDESONIDE/FORMETEROL FUMARATE 160/4.5 mcg INHALER IH SCH ×2 (10:13→21:50)
[2018-11-06] MEDS: TIOTROPIUM BROMIDE 2.5 MCG (SPIRIVA) RESPIMAT INHALER IH SCH (10:14)
[2018-11-06] MEDS: SODIUM CHLORIDE NASAL SPRAY 44 ML BOTTLE NS SCH ×2 (10:14→21:49)
[2018-11-06] MEDS: FUROSEMIDE 40 MG TABLET (FP) PO SCH (10:21)
[2018-11-06] MEDS: LABETALOL HCL 100 MG TABLET (FP) PO SCH ×2 (10:21→21:49)
[2018-11-06] MEDS: PANTOPRAZOLE 40 MG TABLET (FP) PO SCH (10:21)
[2018-11-06] MEDS: NICOTINE 21 MG/24 HOURS TOPICAL PATCH TD SCH (10:22)
[2018-11-06] MEDS: SERTRALINE HCL 50 MG TABLET (FP) PO SCH (10:22)
[2018-11-06] MEDS: MULTIVITAMINS (DAILY MVI) TABLET (FP) PO SCH (10:22)
[2018-11-06] MEDS: POLYETHYLENE GLYCOL 3350 119 GM BTL PO SCH ×2 (10:22→22:06)
--- NOTE | 2018-11-06 12:35 | PN ---
Progress Note (short form) - Note Progress Note: PULMONARY Occasional shortness of breath improved with nebulizer treatments. Vital Signs Period Temp Pulse Resp BP Sys/Weiner Pulse Ox Last 24 Hr 97.7 F-98.8 F 95-107 20-20 105-128/60-73 97 Gen: NAD at rest Heart: RRR Lung: decreased breath sounds at the bases Abd: soft, nontender Ext: + edema CBC, BMP 11/02/18 06:20 11/03/18 06:30 Active Medications Acetaminophen (Tylenol -) 650 mg PO Q6H PRN PRN Reason: FEVER Last Admin: 11/03/18 12:26 Dose: 650 mg Al Hydroxide/Mg Hydroxide (Mylanta Oral Suspension -) 30 ml PO Q6H PRN PRN Reason: DYSPEPSIA Last Admin: 10/30/18 18:44 Dose: 30 ml Albuterol Sulfate (Ventolin Hfa Inhaler -) 2 puff IH Q4H PRN PRN Reason: SHORT OF BREATH/WHEEZING Albuterol/Ipratropium (Duoneb -) 1 amp NEB RQID [facility] Last Admin: 11/06/18 11:30 Dose: 1 amp Atorvastatin Calcium (Lipitor -) 10 mg PO HS [facility] Last Admin: 11/05/18 21:24 Dose: 10 mg Budesonide/Formoterol Fumarate (Symbicort 160/4.5mcg -) 2 puff IH BID [facility] Last Admin: 11/06/18 10:13 Dose: 2 puff Furosemide (Lasix -) 40 mg PO DAILY [facility] Last Admin: 11/06/18 10:21 Dose: 40 mg Heparin Sodium (Porcine) (Heparin -) 5,000 unit SQ TID [facility] Last Admin: 11/06/18 06:14 Dose: 5,000 unit Labetalol HCl (Normodyne -) 50 mg PO BID [facility] Last Admin: 11/06/18 10:21 Dose: 50 mg Melatonin (Melatonin) 5 mg PO HS PRN PRN Reason: INSOMNIA Last Admin: 11/04/18 23:52 Dose: 5 mg Mirtazapine (Remeron -) 30 mg PO HS [facility] Last Admin: 11/05/18 21:30 Dose: Not Given Multivitamins/Minerals/Vitamin C (Tab-A-Vit -) 1 tab PO DAILY [facility] Last Admin: 11/06/18 10:22 Dose: 1 tab Nicotine (Nicoderm Patch -) 21 mg TD DAILY [facility] Last Admin: 11/06/18 10:22 Dose: Not Given Pantoprazole Sodium (Protonix -) 40 mg PO DAILY [facility] Last Admin: 11/06/18 10:21 Dose: 40 mg Polyethylene Glycol (Miralax (For Daily Use) -) 17 gm PO BID [facility] Last Admin: 11/06/18 10:22 Dose: Not Given Sertraline HCl (Zoloft -) 50 mg PO DAILY [facility] Last Admin: 11/06/18 10:22 Dose: 50 mg Simethicone (Mylicon -) 80 mg PO QID PRN PRN Reason: DYSPEPSIA Last Admin: 11/02/18 12:28 Dose: 80 mg Sodium Chloride ([place] Nasal [place] -) 2 spray NS BID [facility] Last Admin: 11/06/18 10:14 Dose: 2 spray Thiamine HCl (Vitamin B1 -) 100 mg PO HS [facility] Last Admin: 11/05/18 21:24 Dose: 100 mg Tiotropium [place] (Spiriva Respimat) 2 puff IH DAILY [facility] Last Admin: 11/06/18 10:14 Dose: 2 puff Trazodone HCl (Desyrel -) 100 mg PO HS [facility] Last Admin: 11/05/18 21:24 Dose: 100 mg A/P COPD/Emphysema r/o Adrenal Insufficiency HTN Hyperlipidemia Smoker - inhaled bronchodilators - O2 to keep SpO2 >90% - endo work up in progress - smoking cessation - outpt PFTs - DVT prophylaxis
--- NOTE | 2018-11-06 13:32 | PN ---
Progress Note, Physician Chief Complaint: COPD Exacerbation CKD History of Present Illness: Still feeling SOB on exertion Awaiting ACTH levels Seen by Pulmonary - Current Medication List Current Medications: Active Medications Acetaminophen (Tylenol -) 650 mg PO Q6H PRN PRN Reason: FEVER Last Admin: 11/03/18 12:26 Dose: 650 mg Al Hydroxide/Mg Hydroxide (Mylanta Oral Suspension -) 30 ml PO Q6H PRN PRN Reason: DYSPEPSIA Last Admin: 10/30/18 18:44 Dose: 30 ml Albuterol Sulfate (Ventolin Hfa Inhaler -) 2 puff IH Q4H PRN PRN Reason: SHORT OF BREATH/WHEEZING Albuterol/Ipratropium (Duoneb -) 1 amp NEB RQID [facility] Last Admin: 11/06/18 11:30 Dose: 1 amp Atorvastatin Calcium (Lipitor -) 10 mg PO HS [facility] Last Admin: 11/05/18 21:24 Dose: 10 mg Budesonide/Formoterol Fumarate (Symbicort 160/4.5mcg -) 2 puff IH BID [facility] Last Admin: 11/06/18 10:13 Dose: 2 puff Furosemide (Lasix -) 40 mg PO DAILY [facility] Last Admin: 11/06/18 10:21 Dose: 40 mg Heparin Sodium (Porcine) (Heparin -) 5,000 unit SQ TID [facility] Last Admin: 11/06/18 06:14 Dose: 5,000 unit Labetalol HCl (Normodyne -) 50 mg PO BID [facility] Last Admin: 11/06/18 10:21 Dose: 50 mg Melatonin (Melatonin) 5 mg PO HS PRN PRN Reason: INSOMNIA Last Admin: 11/04/18 23:52 Dose: 5 mg Mirtazapine (Remeron -) 30 mg PO HS [facility] Last Admin: 11/05/18 21:30 Dose: Not Given Multivitamins/Minerals/Vitamin C (Tab-A-Vit -) 1 tab PO DAILY [facility] Last Admin: 11/06/18 10:22 Dose: 1 tab Nicotine (Nicoderm Patch -) 21 mg TD DAILY [facility] Last Admin: 11/06/18 10:22 Dose: Not Given Pantoprazole Sodium (Protonix -) 40 mg PO DAILY [facility] Last Admin: 11/06/18 10:21 Dose: 40 mg Polyethylene Glycol (Miralax (For Daily Use) -) 17 gm PO BID [facility] Last Admin: 11/06/18 10:22 Dose: Not Given Sertraline HCl (Zoloft -) 50 mg PO DAILY [facility] Last Admin: 11/06/18 10:22 Dose: 50 mg Simethicone (Mylicon -) 80 mg PO QID PRN PRN Reason: DYSPEPSIA Last Admin: 11/02/18 12:28 Dose: 80 mg Sodium Chloride ([place] Nasal [place] -) 2 spray NS BID [facility] Last Admin: 11/06/18 10:14 Dose: 2 spray Thiamine HCl (Vitamin B1 -) 100 mg PO HS [facility] Last Admin: 11/05/18 21:24 Dose: 100 mg Tiotropium [place] (Spiriva Respimat) 2 puff IH DAILY [facility] Last Admin: 11/06/18 10:14 Dose: 2 puff Trazodone HCl (Desyrel -) 100 mg PO HS [facility] Last Admin: 11/05/18 21:24 Dose: 100 mg - Objective Vital Signs: Vital Signs Temperature 97.9 F 11/06/18 10:00 Pulse Rate 105 H 11/06/18 10:00 Respiratory Rate 20 11/06/18 10:00 Blood Pressure 110/60 11/06/18 10:00 O2 Sat by Pulse Oximetry (%) 97 11/05/18 21:00 Constitutional: Yes: Well Nourished, No Distress, Calm, Obese Cardiovascular: Yes: Regular Rate and Rhythm Respiratory: Yes: Regular, On Nasal O2 (O2 dependent), SOB on Exertion Gastrointestinal: Yes: Normal Bowel Sounds, Soft, Abdomen, Obese Genitourinary: Yes: WNL Musculoskeletal: Yes: WNL Extremities: Yes: WNL Edema: No Peripheral Pulses WNL: Yes Neurological: Yes: Alert, Oriented Psychiatric: Yes: Alert, Oriented Labs: CBC, BMP 11/02/18 06:20 11/03/18 06:30 Problem List - Problems (1) Dysphagia Assessment/Plan: -tolerating PO intake better -Seen by GI -MBS-normal -UGI series normal -Adrenal insufficiency being ruled out -Endocrinology on board -ACTH pending Code(s): R13.10 - DYSPHAGIA, UNSPECIFIED (2) Cholelithiasis Assessment/Plan: -chronic cholecystitis -GI on board Code(s): K80.20 - CALCULUS OF GALLBLADDER W/O CHOLECYSTITIS W/O OBSTRUCTION (3) Azotemia Assessment/Plan: -Nephrology on board Code(s): R79.89 - OTHER SPECIFIED ABNORMAL FINDINGS OF BLOOD CHEMISTRY (4) COPD (chronic obstructive pulmonary disease) Assessment/Plan: -O2 dependant -Pulmonary on board -Bronchodilators -On LAMA/LABA/ICS Code(s): J44.9 - CHRONIC OBSTRUCTIVE PULMONARY DISEASE, UNSPECIFIED Qualifiers: COPD type: unspecified COPD Qualified Code(s): J44.9 - Chronic obstructive pulmonary disease, unspecified (5) SOB (shortness of breath) Assessment/Plan: -O2 dependant -Pulmonary on board -Bronchodilators -On LAMA/LABA/ICS -Echo-with normal LVEF -CT chest unremarkable except emphysema Code(s): R06.02 - SHORTNESS OF BREATH Assessment/Plan see problem list
[2018-11-06 15:17] LABS: ANION GAP 5 MMOL/L (8-16); BLOOD UREA NITROGEN 19 mg/dL (7-18); CALCIUM 9.3 mg/dL (8.5-10.1); CHLORIDE 103 mmol/L (98-107); CO2 32 mmol/L (21-32); CREATININE 0.7 mg/dL (0.55-1.3); GLUCOSE,RANDOM 85 mg/dL (74-106); POTASSIUM 3.8 mmol/L (3.5-5.1); SODIUM 140 mmol/L (136-145)
--- NOTE | 2018-11-06 15:50 | PN ---
Progress Note, Physician History of Present Illness: Pt seen and examined at bedside. She is awake and alert. She feels that her breathing is at baseline. - Current Medication List Current Medications: Active Medications Acetaminophen (Tylenol -) 650 mg PO Q6H PRN PRN Reason: FEVER Last Admin: 11/03/18 12:26 Dose: 650 mg Al Hydroxide/Mg Hydroxide (Mylanta Oral Suspension -) 30 ml PO Q6H PRN PRN Reason: DYSPEPSIA Last Admin: 10/30/18 18:44 Dose: 30 ml Albuterol Sulfate (Ventolin Hfa Inhaler -) 2 puff IH Q4H PRN PRN Reason: SHORT OF BREATH/WHEEZING Albuterol/Ipratropium (Duoneb -) 1 amp NEB RQID [facility] Last Admin: 11/06/18 15:22 Dose: 1 amp Atorvastatin Calcium (Lipitor -) 10 mg PO HS [facility] Last Admin: 11/05/18 21:24 Dose: 10 mg Budesonide/Formoterol Fumarate (Symbicort 160/4.5mcg -) 2 puff IH BID [facility] Last Admin: 11/06/18 10:13 Dose: 2 puff Furosemide (Lasix -) 40 mg PO DAILY [facility] Last Admin: 11/06/18 10:21 Dose: 40 mg Heparin Sodium (Porcine) (Heparin -) 5,000 unit SQ TID [facility] Last Admin: 11/06/18 14:37 Dose: Not Given Labetalol HCl (Normodyne -) 50 mg PO BID [facility] Last Admin: 11/06/18 10:21 Dose: 50 mg Melatonin (Melatonin) 5 mg PO HS PRN PRN Reason: INSOMNIA Last Admin: 11/04/18 23:52 Dose: 5 mg Mirtazapine (Remeron -) 30 mg PO HS [facility] Last Admin: 11/05/18 21:30 Dose: Not Given Multivitamins/Minerals/Vitamin C (Tab-A-Vit -) 1 tab PO DAILY [facility] Last Admin: 11/06/18 10:22 Dose: 1 tab Nicotine (Nicoderm Patch -) 21 mg TD DAILY [facility] Last Admin: 11/06/18 10:22 Dose: Not Given Pantoprazole Sodium (Protonix -) 40 mg PO DAILY [facility] Last Admin: 11/06/18 10:21 Dose: 40 mg Polyethylene Glycol (Miralax (For Daily Use) -) 17 gm PO BID [facility] Last Admin: 11/06/18 10:22 Dose: Not Given Sertraline HCl (Zoloft -) 50 mg PO DAILY [facility] Last Admin: 11/06/18 10:22 Dose: 50 mg Simethicone (Mylicon -) 80 mg PO QID PRN PRN Reason: DYSPEPSIA Last Admin: 11/02/18 12:28 Dose: 80 mg Sodium Chloride ([place] Nasal [place] -) 2 spray NS BID [facility] Last Admin: 11/06/18 10:14 Dose: 2 spray Thiamine HCl (Vitamin B1 -) 100 mg PO HS [facility] Last Admin: 11/05/18 21:24 Dose: 100 mg Tiotropium [place] (Spiriva Respimat) 2 puff IH DAILY [facility] Last Admin: 11/06/18 10:14 Dose: 2 puff Trazodone HCl (Desyrel -) 100 mg PO HS [facility] Last Admin: 11/05/18 21:24 Dose: 100 mg - Objective Vital Signs: Vital Signs Temperature 97.9 F 11/06/18 10:00 Pulse Rate 105 H 11/06/18 10:00 Respiratory Rate 20 11/06/18 10:00 Blood Pressure 110/60 11/06/18 10:00 O2 Sat by Pulse Oximetry (%) 100 11/06/18 09:00 Constitutional: Yes: Calm Eyes: Yes: Conjunctiva Clear HENT: Yes: Atraumatic Neck: Yes: Supple Cardiovascular: Yes: S1, S2 Respiratory: Yes: On Nasal O2 Gastrointestinal: Yes: Soft, Abdomen, Obese Genitourinary: Yes: WNL Musculoskeletal: Yes: WNL Edema: LLE: Trace, RLE: Trace Neurological: Yes: Oriented Psychiatric: Yes: Oriented Labs: CBC, BMP 11/02/18 06:20 11/06/18 13:20 Problem List - Problems (1) Azotemia Code(s): R79.89 - OTHER SPECIFIED ABNORMAL FINDINGS OF BLOOD CHEMISTRY (2) COPD exacerbation Code(s): J44.1 - CHRONIC OBSTRUCTIVE PULMONARY DISEASE W (ACUTE) EXACERBATION (3) Elevated BUN Code(s): R79.9 - ABNORMAL FINDING OF BLOOD CHEMISTRY, UNSPECIFIED Assessment/Plan Current Medications Generic Name Dose Route Start Last Admin Trade Name Freq PRN Reason Stop Dose Admin Acetaminophen 650 mg 10/27/18 20:36 11/03/18 12:26 Tylenol - PO 650 mg Q6H PRN Administration FEVER Al Hydroxide/Mg Hydroxide 30 ml 10/30/18 12:40 10/30/18 18:44 Mylanta Oral Suspension - PO 30 ml Q6H PRN Administration DYSPEPSIA Albuterol Sulfate 2 puff 11/01/18 04:12 Ventolin Hfa Inhaler - IH Q4H PRN SHORT OF BREATH/WHEEZING Albuterol/Ipratropium 1 amp 11/01/18 20:00 11/06/18 15:22 Duoneb - NEB 1 amp RQID [facility] Administration Atorvastatin Calcium 10 mg 10/26/18 22:00 11/05/18 21:24 Lipitor - PO 10 mg HS [facility] Administration Budesonide/Formoterol Fumarate 2 puff 11/01/18 13:00 11/06/18 10:13 Symbicort 160/4.5mcg - IH 2 puff BID [facility] Administration Furosemide 40 mg 11/02/18 10:00 11/06/18 10:21 Lasix - PO 40 mg DAILY [facility] Administration Heparin Sodium (Porcine) 5,000 unit 10/27/18 06:00 11/06/18 14:37 Heparin - SQ Not Given TID [facility] Labetalol HCl 50 mg 11/05/18 11:51 11/06/18 10:21 Normodyne - PO 50 mg BID [facility] Administration Melatonin 5 mg 10/26/18 20:41 11/04/18 23:52 Melatonin PO 5 mg HS PRN Administration INSOMNIA Mirtazapine 30 mg 10/27/18 22:00 11/05/18 21:30 Remeron - PO Not Given HS [facility] Multivitamins/Minerals/Vitamin C 1 tab 10/27/18 10:00 11/06/18 10:22 Tab-A-Vit - PO 1 tab DAILY [facility] Administration Nicotine 21 mg 10/26/18 20:45 11/06/18 10:22 Nicoderm Patch - TD Not Given DAILY [facility] Pantoprazole Sodium 40 mg 10/31/18 10:00 11/06/18 10:21 Protonix - PO 40 mg DAILY [facility] Administration Polyethylene Glycol 17 gm 10/31/18 10:00 11/06/18 10:22 Miralax (For Daily Use) - PO Not Given BID [facility] Sertraline HCl 50 mg 10/26/18 22:00 11/06/18 10:22 Zoloft - PO 50 mg DAILY [facility] Administration Simethicone 80 mg 11/02/18 11:53 11/02/18 12:28 Mylicon - PO 80 mg QID PRN Administration DYSPEPSIA Sodium Chloride 2 spray 10/26/18 22:00 11/06/18 10:14 [place] Nasal [place] - NS 2 spray BID [facility] Administration Thiamine HCl 100 mg 10/26/18 22:00 11/05/18 21:24 Vitamin B1 - PO 100 mg HS [facility] Administration Tiotropium [place] 2 puff 10/27/18 10:00 11/06/18 10:14 Spiriva Respimat IH 2 puff DAILY [facility] Administration Trazodone HCl 100 mg 10/26/18 22:00 11/05/18 21:24 Desyrel - PO 100 mg HS [facility] Administration Impression 1. azotemia 2. htn 3. copd 4. emphysema 5. depression 6. active smoker 7. hld 8. hypotension Plan - renal function is stable - cont po lasix - monitor bp - endocrine workup in progress - monitor bp - will follow PRN Dr Saab
[2018-11-06] MEDS: ALBUTEROL SO4 8 GM HFA INHALER IH PRN ×2 (18:44→21:48)
[2018-11-06] MEDS ORDERED: traZODone HCL 50 MG TABLET (FP) ONE (21:42)
[2018-11-06] MEDS: MELATONIN 5 MG TABLETS PO PRN (21:48)
[2018-11-06] MEDS: traZODone HCL 100 MG TABLET (FP) PO SCH (21:48)
[2018-11-06] MEDS: MIRTAZAPINE 15 MG TABLET (FP) PO SCH (21:49)
[2018-11-06] MEDS: THIAMINE HCL 100 MG TABLET (FP) PO SCH (21:49)
[2018-11-06] MEDS: ATORVASTATIN CA 10 MG TABLET (FP) PO SCH (22:04)
[2018-11-07] MEDS: HEPARIN NA (PORCINE) 5,000 UNITS/ML 1ML VIAL SQ SCH ×3 (06:19→22:03)
[2018-11-07] MEDS: ALBUTEROL SO4 2.5/IPRATROPIUM 0.5 INH SOL 3 ML VIAL.NEB. NEB SCH ×4 (08:35→20:43)
[2018-11-07] MEDS: NICOTINE 21 MG/24 HOURS TOPICAL PATCH TD SCH (09:13)
[2018-11-07] MEDS: POLYETHYLENE GLYCOL 3350 119 GM BTL PO SCH ×2 (09:13→22:03)
[2018-11-07] MEDS: BUDESONIDE/FORMETEROL FUMARATE 160/4.5 mcg INHALER IH SCH ×2 (09:14→22:05)
[2018-11-07] MEDS: MULTIVITAMINS (DAILY MVI) TABLET (FP) PO SCH (09:14)
[2018-11-07] MEDS: TIOTROPIUM BROMIDE 2.5 MCG (SPIRIVA) RESPIMAT INHALER IH SCH (09:14)
[2018-11-07] MEDS: FUROSEMIDE 40 MG TABLET (FP) PO SCH (09:15)
[2018-11-07] MEDS: SERTRALINE HCL 50 MG TABLET (FP) PO SCH (09:15)
[2018-11-07] MEDS: LABETALOL HCL 100 MG TABLET (FP) PO SCH ×2 (09:15→22:03)
[2018-11-07] MEDS: PANTOPRAZOLE 40 MG TABLET (FP) PO SCH (09:15)
[2018-11-07] MEDS: SODIUM CHLORIDE NASAL SPRAY 44 ML BOTTLE NS SCH ×2 (09:17→22:05)
--- NOTE | 2018-11-07 10:36 | PN ---
Progress Note, Physician - Current Medication List Current Medications: Active Medications Acetaminophen (Tylenol -) 650 mg PO Q6H PRN PRN Reason: FEVER Last Admin: 11/03/18 12:26 Dose: 650 mg Al Hydroxide/Mg Hydroxide (Mylanta Oral Suspension -) 30 ml PO Q6H PRN PRN Reason: DYSPEPSIA Last Admin: 10/30/18 18:44 Dose: 30 ml Albuterol Sulfate (Ventolin Hfa Inhaler -) 2 puff IH Q4H PRN PRN Reason: SHORT OF BREATH/WHEEZING Last Admin: 11/06/18 21:48 Dose: 2 puff Albuterol/Ipratropium (Duoneb -) 1 amp NEB RQID [facility] Last Admin: 11/07/18 08:35 Dose: 1 amp Atorvastatin Calcium (Lipitor -) 10 mg PO HS [facility] Last Admin: 11/06/18 22:04 Dose: 10 mg Budesonide/Formoterol Fumarate (Symbicort 160/4.5mcg -) 2 puff IH BID [facility] Last Admin: 11/07/18 09:14 Dose: 2 puff Furosemide (Lasix -) 40 mg PO DAILY [facility] Last Admin: 11/07/18 09:15 Dose: 40 mg Heparin Sodium (Porcine) (Heparin -) 5,000 unit SQ TID [facility] Last Admin: 11/07/18 06:19 Dose: Not Given Labetalol HCl (Normodyne -) 50 mg PO BID [facility] Last Admin: 11/07/18 09:15 Dose: 50 mg Melatonin (Melatonin) 5 mg PO HS PRN PRN Reason: INSOMNIA Last Admin: 11/06/18 21:48 Dose: 5 mg Mirtazapine (Remeron -) 30 mg PO HS [facility] Last Admin: 11/06/18 21:49 Dose: Not Given Multivitamins/Minerals/Vitamin C (Tab-A-Vit -) 1 tab PO DAILY [facility] Last Admin: 11/07/18 09:14 Dose: 1 tab Nicotine (Nicoderm Patch -) 21 mg TD DAILY [facility] Last Admin: 11/07/18 09:13 Dose: Not Given Pantoprazole Sodium (Protonix -) 40 mg PO DAILY [facility] Last Admin: 11/07/18 09:15 Dose: 40 mg Polyethylene Glycol (Miralax (For Daily Use) -) 17 gm PO BID [facility] Last Admin: 11/07/18 09:13 Dose: Not Given Sertraline HCl (Zoloft -) 50 mg PO DAILY [facility] Last Admin: 11/07/18 09:15 Dose: 50 mg Simethicone (Mylicon -) 80 mg PO QID PRN PRN Reason: DYSPEPSIA Last Admin: 11/02/18 12:28 Dose: 80 mg Sodium Chloride ([place] Nasal [place] -) 2 spray NS BID [facility] Last Admin: 11/07/18 09:17 Dose: 2 spray Thiamine HCl (Vitamin B1 -) 100 mg PO HS [facility] Last Admin: 11/06/18 21:49 Dose: 100 mg Tiotropium [place] (Spiriva Respimat) 2 puff IH DAILY [facility] Last Admin: 11/07/18 09:14 Dose: 2 puff Trazodone HCl (Desyrel -) 100 mg PO [facility] Last Admin: 11/06/18 21:48 Dose: 100 mg - Objective Vital Signs: Vital Signs Temperature 97.6 F 11/07/18 09:50 Pulse Rate 96 H 11/07/18 09:50 Respiratory Rate 20 11/07/18 09:50 Blood Pressure 103/79 11/07/18 09:50 O2 Sat by Pulse Oximetry (%) 100 11/06/18 21:00 Cardiovascular: Yes: S1, S2 Respiratory: Yes: Regular, CTA Bilaterally Gastrointestinal: Yes: Normal Bowel Sounds, Soft Edema: Yes Labs: CBC, BMP 11/02/18 06:20 11/06/18 13:20 Problem List - Problems (1) CHF (congestive heart failure) Code(s): I50.9 - HEART FAILURE, UNSPECIFIED (2) COPD exacerbation Code(s): J44.1 - CHRONIC OBSTRUCTIVE PULMONARY DISEASE W (ACUTE) EXACERBATION (3) Hypertension Code(s): I10 - ESSENTIAL (PRIMARY) HYPERTENSION Qualifiers: Hypertension type: essential hypertension Qualified Code(s): I10 - Essential (primary) hypertension (4) Abdominal pain Code(s): R10.9 - UNSPECIFIED ABDOMINAL PAIN (5) Depression Code(s): F32.9 - MAJOR DEPRESSIVE DISORDER, SINGLE EPISODE, UNSPECIFIED Qualifiers: Depression Type: unspecified Qualified Code(s): F32.9 - Major depressive disorder, single episode, unspecified Assessment/Plan - Problems (1) Dysphagia Assessment/Plan: -tolerating PO intake better -Seen by GI -MBS-normal -UGI series normal Code(s): R13.10 - DYSPHAGIA, UNSPECIFIED (2) Cholelithiasis Assessment/Plan: -chronic cholecystitis -GI on board Code(s): K80.20 - CALCULUS OF GALLBLADDER W/O CHOLECYSTITIS W/O OBSTRUCTION (3) Azotemia Assessment/Plan: -Nephrology on board Code(s): R79.89 - OTHER SPECIFIED ABNORMAL FINDINGS OF BLOOD CHEMISTRY (4) COPD (chronic obstructive pulmonary disease) Assessment/Plan: -O2 dependant -Pulmonary on board -Bronchodilators -On LAMA/LABA/ICS Code(s): J44.9 - CHRONIC OBSTRUCTIVE PULMONARY DISEASE, UNSPECIFIED Qualifiers: COPD type: unspecified COPD Qualified Code(s): J44.9 - Chronic obstructive pulmonary disease, unspecified (5) SOB (shortness of breath) Assessment/Plan: -O2 dependant -Pulmonary on board -Bronchodilators -On LAMA/LABA/ICS -Echo-with normal LVEF -CT chest unremarkable except emphysema Code(s): R06.02 - SHORTNESS OF BREATH (6) Adrenal insufiency Assessment/Plan: -MRI pending -Adrenal insufficiency being ruled out -Endocrinology on board -ACTH pending
--- NOTE | 2018-11-07 15:39 | PN ---
Progress Note, Physician History of Present Illness: PULMONARY ALERT,SITTING UP IN BED,C/O SOB - Current Medication List Current Medications: Active Medications Acetaminophen (Tylenol -) 650 mg PO Q6H PRN PRN Reason: FEVER Last Admin: 11/03/18 12:26 Dose: 650 mg Al Hydroxide/Mg Hydroxide (Mylanta Oral Suspension -) 30 ml PO Q6H PRN PRN Reason: DYSPEPSIA Last Admin: 10/30/18 18:44 Dose: 30 ml Albuterol Sulfate (Ventolin Hfa Inhaler -) 2 puff IH Q4H PRN PRN Reason: SHORT OF BREATH/WHEEZING Last Admin: 11/06/18 21:48 Dose: 2 puff Albuterol/Ipratropium (Duoneb -) 1 amp NEB RQID [facility] Last Admin: 11/07/18 11:38 Dose: 1 amp Atorvastatin Calcium (Lipitor -) 10 mg PO HS [facility] Last Admin: 11/06/18 22:04 Dose: 10 mg Budesonide/Formoterol Fumarate (Symbicort 160/4.5mcg -) 2 puff IH BID [facility] Last Admin: 11/07/18 09:14 Dose: 2 puff Furosemide (Lasix -) 40 mg PO DAILY [facility] Last Admin: 11/07/18 09:15 Dose: 40 mg Heparin Sodium (Porcine) (Heparin -) 5,000 unit SQ TID [facility] Last Admin: 11/07/18 13:57 Dose: Not Given Labetalol HCl (Normodyne -) 50 mg PO BID [facility] Last Admin: 11/07/18 09:15 Dose: 50 mg Melatonin (Melatonin) 5 mg PO HS PRN PRN Reason: INSOMNIA Last Admin: 11/06/18 21:48 Dose: 5 mg Mirtazapine (Remeron -) 30 mg PO HS [facility] Last Admin: 11/06/18 21:49 Dose: Not Given Multivitamins/Minerals/Vitamin C (Tab-A-Vit -) 1 tab PO DAILY [facility] Last Admin: 11/07/18 09:14 Dose: 1 tab Nicotine (Nicoderm Patch -) 21 mg TD DAILY [facility] Last Admin: 11/07/18 09:13 Dose: Not Given Pantoprazole Sodium (Protonix -) 40 mg PO DAILY [facility] Last Admin: 11/07/18 09:15 Dose: 40 mg Polyethylene Glycol (Miralax (For Daily Use) -) 17 gm PO BID [facility] Last Admin: 11/07/18 09:13 Dose: Not Given Sertraline HCl (Zoloft -) 50 mg PO DAILY [facility] Last Admin: 11/07/18 09:15 Dose: 50 mg Simethicone (Mylicon -) 80 mg PO QID PRN PRN Reason: DYSPEPSIA Last Admin: 11/02/18 12:28 Dose: 80 mg Sodium Chloride ([place] Nasal [place] -) 2 spray NS BID [facility] Last Admin: 11/07/18 09:17 Dose: 2 spray Thiamine HCl (Vitamin B1 -) 100 mg PO HS [facility] Last Admin: 11/06/18 21:49 Dose: 100 mg Tiotropium [place] (Spiriva Respimat) 2 puff IH DAILY [facility] Last Admin: 11/07/18 09:14 Dose: 2 puff Trazodone HCl (Desyrel -) 100 mg PO HS [facility] Last Admin: 11/06/18 21:48 Dose: 100 mg - Objective Vital Signs: Vital Signs Temperature 98.4 F 11/07/18 12:47 Pulse Rate 90 11/07/18 12:47 Respiratory Rate 20 11/07/18 12:47 Blood Pressure 120/65 11/07/18 12:47 O2 Sat by Pulse Oximetry (%) 98 11/07/18 12:14 Constitutional: Yes: Well Nourished, Calm Eyes: Yes: WNL HENT: Yes: WNL Neck: Yes: WNL Cardiovascular: Yes: Regular Rate and Rhythm, S1, S2 Respiratory: Yes: Wheezes (FEW SCATTERED WHEEZES) Gastrointestinal: Yes: Normal Bowel Sounds, Soft Extremities: Yes: WNL Edema: Yes Assessment/Plan Problem List - Problems (1) Bronchiectasis Code(s): J47.9 - BRONCHIECTASIS, UNCOMPLICATED (2) Emphysema of lung Code(s): J43.9 - EMPHYSEMA, UNSPECIFIED (3) Anasarca Code(s): R60.1 - GENERALIZED EDEMA (4) SOB (shortness of breath) Code(s): R06.02 - SHORTNESS OF BREATH (5) Anxiety Code(s): F41.9 - ANXIETY DISORDER, UNSPECIFIED (6) Nicotine dependence Code(s): F17.200 - NICOTINE DEPENDENCE, UNSPECIFIED, UNCOMPLICATED (7) COPD (chronic obstructive pulmonary disease) Code(s): J44.9 - CHRONIC OBSTRUCTIVE PULMONARY DISEASE, UNSPECIFIED Qualifiers: COPD type: unspecified COPD Qualified Code(s): J44.9 - Chronic obstructive pulmonary disease, unspecified (8) Hypercholesterolemia Code(s): E78.00 - PURE HYPERCHOLESTEROLEMIA, UNSPECIFIED (9) Hypertension Code(s): I10 - ESSENTIAL (PRIMARY) HYPERTENSION Qualifiers: Hypertension type: essential hypertension Qualified Code(s): I10 - Essential (primary) hypertension Assessment/Plan A/P COPD/Emphysema r/o Adrenal Insufficiency HTN Hyperlipidemia Smoker - inhaled bronchodilators - O2 to keep SpO2 >90% - endo work up in progress - smoking cessation counseled - PFTs - DVT prophylaxis DR HURST Problem List - Problems (1) Bronchiectasis Code(s): J47.9 - BRONCHIECTASIS, UNCOMPLICATED (2) Emphysema of lung Code(s): J43.9 - EMPHYSEMA, UNSPECIFIED (3) Anasarca Code(s): R60.1 - GENERALIZED EDEMA (4) SOB (shortness of breath) Code(s): R06.02 - SHORTNESS OF BREATH (5) Anxiety Code(s): F41.9 - ANXIETY DISORDER, UNSPECIFIED (6) Nicotine dependence Code(s): F17.200 - NICOTINE DEPENDENCE, UNSPECIFIED, UNCOMPLICATED (7) COPD (chronic obstructive pulmonary disease) Code(s): J44.9 - CHRONIC OBSTRUCTIVE PULMONARY DISEASE, UNSPECIFIED Qualifiers: COPD type: unspecified COPD Qualified Code(s): J44.9 - Chronic obstructive pulmonary disease, unspecified (8) Hypercholesterolemia Code(s): E78.00 - PURE HYPERCHOLESTEROLEMIA, UNSPECIFIED (9) Hypertension Code(s): I10 - ESSENTIAL (PRIMARY) HYPERTENSION Qualifiers: Hypertension type: essential hypertension Qualified Code(s): I10 - Essential (primary) hypertension
[2018-11-07] MEDS ORDERED: predniSONE 10 MG TABLET (UD) PO ONE (20:16)
[2018-11-07] MEDS ORDERED: predniSONE 10 MG TABLET (UD) ONE (20:24)
[2018-11-07] MEDS ORDERED: predniSONE 10 MG, predniSONE 5 MG PO ONE (20:30)
[2018-11-07] MEDS ORDERED: traZODone HCL 50 MG TABLET (FP) ONE (21:17)
[2018-11-07] MEDS: traZODone HCL 100 MG TABLET (FP) PO SCH (22:02)
[2018-11-07] MEDS: ATORVASTATIN CA 10 MG TABLET (FP) PO SCH (22:03)
[2018-11-07] MEDS: THIAMINE HCL 100 MG TABLET (FP) PO SCH (22:05)
[2018-11-07] MEDS: MIRTAZAPINE 15 MG TABLET (FP) PO SCH ×2 (22:05→22:11)
[2018-11-07] MEDS: MELATONIN 5 MG TABLETS PO PRN (22:10)
--- NOTE | 2018-11-07 23:41 | PN ---
Progress Note, Physician Chief Complaint: failed cosyntropin stim testing adrenal deficient History of Present Illness: adrenal deficiency with low response to cosyntropin/likely [facility] adrenal suppresion - Current Medication List Current Medications: Active Medications Acetaminophen (Tylenol -) 650 mg PO Q6H PRN PRN Reason: FEVER Last Admin: 11/03/18 12:26 Dose: 650 mg Al Hydroxide/Mg Hydroxide (Mylanta Oral Suspension -) 30 ml PO Q6H PRN PRN Reason: DYSPEPSIA Last Admin: 10/30/18 18:44 Dose: 30 ml Albuterol Sulfate (Ventolin Hfa Inhaler -) 2 puff IH Q4H PRN PRN Reason: SHORT OF BREATH/WHEEZING Last Admin: 11/06/18 21:48 Dose: 2 puff Albuterol/Ipratropium (Duoneb -) 1 amp NEB RQID [facility] Last Admin: 11/07/18 20:43 Dose: 1 amp Atorvastatin Calcium (Lipitor -) 10 mg PO HS [facility] Last Admin: 11/07/18 22:03 Dose: 10 mg Budesonide/Formoterol Fumarate (Symbicort 160/4.5mcg -) 2 puff IH BID [facility] Last Admin: 11/07/18 22:05 Dose: 2 puff Furosemide (Lasix -) 40 mg PO DAILY [facility] Last Admin: 11/07/18 09:15 Dose: 40 mg Heparin Sodium (Porcine) (Heparin -) 5,000 unit SQ TID [facility] Last Admin: 11/07/18 22:03 Dose: Not Given Labetalol HCl (Normodyne -) 50 mg PO BID [facility] Last Admin: 11/07/18 22:03 Dose: 50 mg Melatonin (Melatonin) 5 mg PO HS PRN PRN Reason: INSOMNIA Last Admin: 11/07/18 22:10 Dose: 5 mg Mirtazapine (Remeron -) 30 mg PO HS [facility] Last Admin: 11/07/18 22:11 Dose: Not Given Multivitamins/Minerals/Vitamin C (Tab-A-Vit -) 1 tab PO DAILY [facility] Last Admin: 11/07/18 09:14 Dose: 1 tab Nicotine (Nicoderm Patch -) 21 mg TD DAILY [facility] Last Admin: 11/07/18 09:13 Dose: Not Given Pantoprazole Sodium (Protonix -) 40 mg PO DAILY [facility] Last Admin: 11/07/18 09:15 Dose: 40 mg Polyethylene Glycol (Miralax (For Daily Use) -) 17 gm PO BID [facility] Last Admin: 11/07/18 22:03 Dose: Not Given Prednisone (Deltasone -) 7.5 mg PO DAILY [facility] Sertraline HCl (Zoloft -) 50 mg PO DAILY [facility] Last Admin: 11/07/18 09:15 Dose: 50 mg Simethicone (Mylicon -) 80 mg PO QID PRN PRN Reason: DYSPEPSIA Last Admin: 11/02/18 12:28 Dose: 80 mg Sodium Chloride ([place] Nasal [place] -) 2 spray NS BID [facility] Last Admin: 11/07/18 22:05 Dose: 2 spray Thiamine HCl (Vitamin B1 -) 100 mg PO HS [facility] Last Admin: 11/07/18 22:05 Dose: 100 mg Tiotropium [place] (Spiriva Respimat) 2 puff IH DAILY [facility] Last Admin: 11/07/18 09:14 Dose: 2 puff Trazodone HCl (Desyrel -) 100 mg PO [facility] Last Admin: 11/07/18 22:02 Dose: 100 mg - Objective Vital Signs: Vital Signs Temperature 97.4 F L 11/07/18 18:00 Pulse Rate 107 H 11/07/18 18:00 Respiratory Rate 20 11/07/18 18:00 Blood Pressure 114/66 11/07/18 18:00 O2 Sat by Pulse Oximetry (%) 98 11/07/18 12:14 Constitutional: Yes: Calm Eyes: Yes: EOM Intact HENT: Yes: Normocephalic Neck: Yes: Trachea Midline Cardiovascular: Yes: Tachycardia Respiratory: Yes: On Nasal O2, Tachypnea, Wheezes Gastrointestinal: Yes: Normal Bowel Sounds ...Rectal Exam: Yes: Deferred Musculoskeletal: Yes: Back Pain, Muscle Pain, Muscle Weakness Extremities: Yes: Delayed Capillary Refill Edema: LLE: Trace, RLE: Trace Neurological: Yes: Alert, Oriented Psychiatric: Yes: Oriented Labs: CBC, BMP 11/02/18 06:20 11/06/18 13:20 Problem List - Problems (1) Hypotension due to medication Code(s): I95.2 - HYPOTENSION DUE TO DRUGS (2) Abdominal pain Code(s): R10.9 - UNSPECIFIED ABDOMINAL PAIN (3) Anasarca Code(s): R60.1 - GENERALIZED EDEMA (4) CHF (congestive heart failure) Code(s): I50.9 - HEART FAILURE, UNSPECIFIED (5) COPD exacerbation Code(s): J44.1 - CHRONIC OBSTRUCTIVE PULMONARY DISEASE W (ACUTE) EXACERBATION (6) Dysphagia Code(s): R13.10 - DYSPHAGIA, UNSPECIFIED (7) Primary adrenal deficiency Code(s): E27.1 - PRIMARY ADRENOCORTICAL INSUFFICIENCY Assessment/Plan Current Active Problems Abdominal pain (Acute) Anasarca (Acute) Azotemia (Acute) Bronchiectasis (Acute) CHF (congestive heart failure) (Acute) COPD exacerbation (Acute) Cholelithiasis (Acute) Dysphagia (Acute) Elevated BUN (Acute) Emphysema of lung (Acute) Hypotension due to medication (Acute) SOB (shortness of breath) (Acute) primary adrenal deficiency Laboratory Tests 11/03/18 11/03/18 11/03/18 17:25 17:25 20:35 Cortisol PM Sample 0.8 L 12.6 H ACTH 5.5 L 11/03/18 21:05 Cortisol PM Sample 17.6 H ACTH plan; prednisone 15mg today then 7.5 mg daily tamara stocking for ambulatory support.
[2018-11-08] MEDS: HEPARIN NA (PORCINE) 5,000 UNITS/ML 1ML VIAL SQ SCH ×2 (06:42→13:34)
[2018-11-08] MEDS: ALBUTEROL SO4 2.5/IPRATROPIUM 0.5 INH SOL 3 ML VIAL.NEB. NEB SCH ×3 (07:25→15:36)
[2018-11-08] MEDS: MULTIVITAMINS (DAILY MVI) TABLET (FP) PO SCH (09:43)
[2018-11-08] MEDS: FUROSEMIDE 40 MG TABLET (FP) PO SCH (09:43)
[2018-11-08] MEDS: SERTRALINE HCL 50 MG TABLET (FP) PO SCH (09:43)
[2018-11-08] MEDS: LABETALOL HCL 100 MG TABLET (FP) PO SCH (09:43)
[2018-11-08] MEDS: PANTOPRAZOLE 40 MG TABLET (FP) PO SCH (09:43)
[2018-11-08] MEDS: SODIUM CHLORIDE NASAL SPRAY 44 ML BOTTLE NS SCH (09:45)
[2018-11-08] MEDS: TIOTROPIUM BROMIDE 2.5 MCG (SPIRIVA) RESPIMAT INHALER IH SCH (09:45)
[2018-11-08] MEDS: NICOTINE 21 MG/24 HOURS TOPICAL PATCH TD SCH (09:46)
[2018-11-08] MEDS: BUDESONIDE/FORMETEROL FUMARATE 160/4.5 mcg INHALER IH SCH (09:46)
[2018-11-08] MEDS: POLYETHYLENE GLYCOL 3350 119 GM BTL PO SCH (09:46)
[2018-11-08] MEDS ORDERED: predniSONE 5 MG TABLET (UD) PO SCH (10:00)
--- NOTE | 2018-11-08 13:28 | PN ---
Progress Note, Physician Chief Complaint: patient seen and examined endocrine consult appreicate to disharge to [facility] - Current Medication List Current Medications: Active Medications Acetaminophen (Tylenol -) 650 mg PO Q6H PRN PRN Reason: FEVER Last Admin: 11/03/18 12:26 Dose: 650 mg Al Hydroxide/Mg Hydroxide (Mylanta Oral Suspension -) 30 ml PO Q6H PRN PRN Reason: DYSPEPSIA Last Admin: 10/30/18 18:44 Dose: 30 ml Albuterol Sulfate (Ventolin Hfa Inhaler -) 2 puff IH Q4H PRN PRN Reason: SHORT OF BREATH/WHEEZING Last Admin: 11/06/18 21:48 Dose: 2 puff Albuterol/Ipratropium (Duoneb -) 1 amp NEB RQID [facility] Last Admin: 11/08/18 11:17 Dose: 1 amp Atorvastatin Calcium (Lipitor -) 10 mg PO HS [facility] Last Admin: 11/07/18 22:03 Dose: 10 mg Budesonide/Formoterol Fumarate (Symbicort 160/4.5mcg -) 2 puff IH BID [facility] Last Admin: 11/08/18 09:46 Dose: 2 puff Furosemide (Lasix -) 40 mg PO DAILY [facility] Last Admin: 11/08/18 09:43 Dose: 40 mg Heparin Sodium (Porcine) (Heparin -) 5,000 unit SQ TID [facility] Last Admin: 11/08/18 06:42 Dose: Not Given Labetalol HCl (Normodyne -) 50 mg PO BID [facility] Last Admin: 11/08/18 09:43 Dose: 50 mg Melatonin (Melatonin) 5 mg PO HS PRN PRN Reason: INSOMNIA Last Admin: 11/07/18 22:10 Dose: 5 mg Mirtazapine (Remeron -) 30 mg PO HS [facility] Last Admin: 11/07/18 22:11 Dose: Not Given Multivitamins/Minerals/Vitamin C (Tab-A-Vit -) 1 tab PO DAILY [facility] Last Admin: 11/08/18 09:43 Dose: 1 tab Nicotine (Nicoderm Patch -) 21 mg TD DAILY [facility] Last Admin: 11/08/18 09:46 Dose: Not Given Pantoprazole Sodium (Protonix -) 40 mg PO DAILY [facility] Last Admin: 11/08/18 09:43 Dose: 40 mg Polyethylene Glycol (Miralax (For Daily Use) -) 17 gm PO BID [facility] Last Admin: 11/08/18 09:46 Dose: Not Given Prednisone (Deltasone -) 7.5 mg PO DAILY [facility] Last Admin: 11/08/18 09:43 Dose: 7.5 mg Sertraline HCl (Zoloft -) 50 mg PO DAILY [facility] Last Admin: 11/08/18 09:43 Dose: 50 mg Simethicone (Mylicon -) 80 mg PO QID PRN PRN Reason: DYSPEPSIA Last Admin: 11/02/18 12:28 Dose: 80 mg Sodium Chloride ([place] Nasal [place] -) 2 spray NS BID [facility] Last Admin: 11/08/18 09:45 Dose: 2 spray Thiamine HCl (Vitamin B1 -) 100 mg PO HS [facility] Last Admin: 11/07/18 22:05 Dose: 100 mg Tiotropium [place] (Spiriva Respimat) 2 puff IH DAILY [facility] Last Admin: 11/08/18 09:45 Dose: 2 puff Trazodone HCl (Desyrel -) 100 mg PO [facility] Last Admin: 11/07/18 22:02 Dose: 100 mg - Objective Vital Signs: Vital Signs Temperature 97.5 F L 11/08/18 09:25 Pulse Rate 99 H 11/08/18 09:25 Respiratory Rate 18 11/08/18 09:25 Blood Pressure 118/68 11/08/18 09:25 O2 Sat by Pulse Oximetry (%) 98 11/08/18 10:00 Constitutional: Yes: Calm Cardiovascular: Yes: Regular Rate and Rhythm, S1, S2 Respiratory: Yes: Diminished, On Nasal O2 Gastrointestinal: Yes: Normal Bowel Sounds, Soft Edema: Yes Neurological: Yes: Alert, Oriented Labs: CBC, BMP 11/02/18 06:20 11/06/18 13:20 Problem List - Problems (1) Azotemia Assessment/Plan: renal on board renal function improved Code(s): R79.89 - OTHER SPECIFIED ABNORMAL FINDINGS OF BLOOD CHEMISTRY (2) CHF (congestive heart failure) Assessment/Plan: appreciate cardiology consult ordered echo report shows left ventricle size is normal and function is normal oral lasix Code(s): I50.9 - HEART FAILURE, UNSPECIFIED (3) COPD exacerbation Assessment/Plan: oxygen bronchodilators smokking cessation nictine patch Code(s): J44.1 - CHRONIC OBSTRUCTIVE PULMONARY DISEASE W (ACUTE) EXACERBATION (4) Dysphagia Assessment/Plan: barium series done normal upper GI series gi on board fazal begum saw patient MBS done swallowing is within normal limits Code(s): R13.10 - DYSPHAGIA, UNSPECIFIED (5) Adrenal suppression Assessment/Plan: started on prednisone 7.5 mg po daily by endocrine low acth and cortisol noted MRI of sella turcia as outpatient as she has claustrophobia will need open MRI Code(s): E27.49 - OTHER ADRENOCORTICAL INSUFFICIENCY
[2018-11-08 15:16] VITALS: BP 122/77; PULSE 105; TEMP 98.8
== END 2018-11-08 16:41 | DRG 140 ==
LOC: JER 12:05 → JERBED 19:07 → OBSVTOIN 20:28 → J5S 22:47
PROVIDERS: ADMIT Internal Medicine; ATTEND Family Medicine
DX: J44.1 Chronic obstructive pulmonary disease with (acute) exacerbation (principal); E78.5 Hyperlipidemia, unspecified; F41.8 Other specified anxiety disorders; F14.21 Cocaine dependence, in remission; R60.1 Generalized edema; E27.40 Unspecified adrenocortical insufficiency; N39.0 Urinary tract infection, site not specified; R10.9 Unspecified abdominal pain; F19.10 Other psychoactive substance abuse, uncomplicated; I11.0 Hypertensive heart disease with heart failure; R13.10 Dysphagia, unspecified; F17.210 Nicotine dependence, cigarettes, uncomplicated; K80.20 Calculus of gallbladder without cholecystitis without obstruction; R79.9 Abnormal finding of blood chemistry, unspecified; I95.2 Hypotension due to drugs; T50.995A Adverse effect of other drugs, medicaments and biological substances, initial encounter; F10.21 Alcohol dependence, in remission; R79.89 Other specified abnormal findings of blood chemistry; E66.9 Obesity, unspecified; Z68.36 Body mass index [BMI] 36.0-36.9, adult; Z59.0 Homelessness; Z99.81 Dependence on supplemental oxygen
CPT/HCPCS: 36415; 36600; 71046-TC-FY; 71275-TC; 74019-TC-FY; 74177-TC; 74220-TC-FY; 74230-TC-FY; 74240-TC-FY; 76700-TC; 80048; 80053; 80307; 81003; 81015; 82024; 82375; 82533; 82803; 83050; 83735; 83880; 84100; 84443; 84484; 85025; 85027; 87086; 87804; 92611-GN; 93005; 93010; 93306-TC; 93970-TC; 94640; 97116-GP; 97161-GP; 99285-25; G0378; J0833; J1644

== ENCOUNTER 2018-12-23 16:35 | Emergency (ER) | payer OTHER ==
[2018-12-23 16:52] VITALS: BP 123/74; PULSE 83; TEMP 98; BMI 37.0
--- NOTE | 2018-12-23 17:33 | PDOC ---
History of Present Illness - General Chief Complaint: Pain Stated Complaint: PAIN IN RIGHT SIDE GROIN/BREAST PAIN Time Seen by Provider: 12/23/18 17:10 History Source: Patient Exam Limitations: No Limitations - History of Present Illness Initial Comments: 12/23/18 17:31 Patient is a 53 y/o female with a history of GERD, HLD, depression, HTN, COPD, asthma who presents for pain in her right groin. She has been having this pain for two weeks and it is getting worse, she describes it as a sharp pain. It radiates to her back , R buttock, and into her R thigh. She has not found that anything makes it better. Patient was admitted to the hospital last month. Her oxygen saturation was low and she was discharged to [facility] for rehab. She says she is currently on 2L of O2. She also notes pain in her right breast. She denies fever, chills, nausea, vomiting, dysuria, hematuria, or discharge. Denies any abdominal pain. Past History - Past Medical History Allergies/Adverse Reactions: Allergies Allergy/AdvReac Type Severity Reaction Status Date / Time No Known Allergies Allergy Verified 12/23/18 16:52 Home Medications: Ambulatory Orders Acetaminophen [Tylenol] 650 mg PO ASDIR 10/05/18 Albuterol 0.083% Nebulizer Jyoti [Ventolin 0.083% Nebulizer Soln -] 1 neb NEB QID 10/05/18 Albuterol 2.5/Ipratropium 0.5 [Duoneb -] 1 neb NEB Q4H 10/05/18 Budesonide/Formeterol Fumarate [SYMBICORT 160/4.5mcg -] 1 inh PO BID 10/05/18 Mag Hydrox/Al Hydrox/Simeth [Mylanta Oral Suspension -] 1 dose PO ASDIR Melatonin 5 mg PO DAILY 10/05/18 Mirtazapine [Remeron -] 30 mg PO DAILY 10/05/18 95/Iron Fum/Folic/Dha [ + Dha Combo Pack] 1 each PO DAILY 10/05 Sertraline HCl [Zoloft -] 50 mg PO DAILY 10/05/18 Thiamine HCl [B-1] 100 mg PO HS 10/05/18 traZODone HCL [Trazodone HCl] 100 mg PO ASDIR 10/05/18 Albuterol Sulfate Inhaler - [Ventolin HFA Inhaler -] 2 puff IH Q4H PRN 10/08/18 Simvastatin 20 mg PO HS 10/08/18 Aclidinium [place] [Tudorza Pressair] 400 mcg IH DAILY 10/12/18 Budesonide/Formeterol Fumarate [SYMBICORT 160/4.5mcg -] 2 puff IH BID inhaler 10/12/18 Nicotine Patch [Nicoderm Patch -] 21 mg TD DAILY patch 10/12/18 Ranitidine [Zantac -] 150 mg PO BID tablet 10/12/18 Sodium Chloride Nasal [place] [[place] Nas[place] -] 2 spray NS BID spray Furosemide [Lasix -] 40 mg PO DAILY #30 tablet MDD 1 11/02/18 Labetalol HCl [Normodyne -] 50 mg PO BID #30 tablet MDD 2 11/05/18 Thiamine HCl [Vitamin B1 -] 100 mg PO HS #30 tablet MDD 1 11/08/18 predniSONE [Deltasone -] 7.5 mg PO DAILY #30 tablet MDD 1 11/08/18 Anemia: No Asthma: Yes (ALBUTEROL) Cancer: No Cardiac Disorders: No CVA: No COPD: Yes (SYMBICORT) CHF: No Dementia: No Diabetes: No GI Disorders: No Disorders: No HTN: Yes (NIFEDIPINE) Hypercholesterolemia: Yes Kidney Stones: No Liver Disease: No Seizures: No Thyroid Disease: No - Surgical History Abdominal Surgery: Yes (APPENDICITIS AT AGE 17) Appendectomy: Yes Cardiac Surgery: No Cholecystectomy: No Lung Surgery: No Neurologic Surgery: No Orthopedic Surgery: No - Immunization History Immunization Up to Date: Yes - Suicide/Smoking/Psychosocial Hx Smoking History: Current every day smoker Have you smoked in the past 12 months: Yes Number of Cigarettes Smoked Daily: 5 If you are a former smoker, when did you quit?: 08/2018 Information on smoking cessation initiated: No 'Breaking Loose' booklet given: 09/04/18 Hx Alcohol Use: Yes Drug/Substance Use Hx: Yes (cocaine) Substance Use Type: Alcohol, Cocaine Hx Substance Use Treatment: Yes (completed inpatient rehab in 1993) Review of Systems - Review of Systems Constitutional: No: Chills, Fever HEENTM: No: Eye Pain Respiratory: No: Cough, Shortness of Breath Cardiac (ROS): No: Chest Pain ABD/GI: No: Diarrhea, Nausea, Vomiting : No: Dysuria, Discharge Musculoskeletal: No: Joint Pain *Physical Exam - Vital Signs Last Vital Signs Temp Pulse Resp BP Pulse Ox 98 F 83 20 123/74 98 12/23/18 16:49 12/23/18 16:49 12/23/18 16:49 12/23/18 16:49 12/23/18 16:49 - Physical Exam Comments: 12/23/18 17:40 GENERAL: A&Ox3, no acute distress EYES: EOMI HEART: RRR, no murmurs, rubs, or gallops LUNGS: CTAL B/L BREAST: no nipple discharge, no masses noted, no lumps palpated, no skin changes ABDOMEN: non tender, non distended, soft, tenderness in R groin, tenderness at top R buttock, EXTREMITIES: 1+ pitting edema SKIN: no rashes or ulcers noted ED Treatment Course - LABORATORY CBC & Chemistry Diagram: 12/23/18 18:31 Medical Decision Making - Medical Decision Making 12/23/18 19:01 WBC 12.4, baseline high, 11 in [place] f/u UA can DC if normal *DC/Admit/Observation/Transfer Diagnosis at time of Disposition: Groin pain Qualifiers: Laterality: right Qualified Code(s): R10.31 - Right lower quadrant pain - Referrals - Patient Instructions - Post Discharge Activity
[2018-12-23] MEDS ORDERED: ACETAMINOPHEN 325 MG TABLET (FP) PO ONE (17:43)
[2018-12-23] MEDS ORDERED: ACETAMINOPHEN 325 MG TABLET (FP) ONE (17:48)
[2018-12-23 18:41] LABS: HEMATOCRIT 35.6 % (32.4-45.2); HEMOGLOBIN 11.9 GM/dL (10.7-15.3); MCHC 33.5 g/dl (32.0-36.0); MEAN CELL VOLUME 92.6 fl (80-96); MEAN PLT VOLUME 8.6 fl (7.5-11.1); PLATELET COUNT 226 K/MM3 (134-434); RBC 3.85 M/mm3 (3.60-5.2); RDW 15.4 % (11.6-15.6); WHITE BLOOD COUNT 12.4 K/mm3 (4.0-10.0)
--- NOTE | 2018-12-23 18:52 | PDOC ---
Attending Attestation - Resident Resident Name: Vonda Cedillo - ED Attending Attestation I have performed the following: I have examined & evaluated the patient, The case was reviewed & discussed with the resident, I agree w/resident's findings & plan - [facility] HPI: 12/23/18 20:18 [id number], with significant past medical history of Depression, COPD (on 2L), GERD, and HLD, who presents to the ED via EMS from [facility] with, 2 weeks of worsening right groin pain now constant radiating to the buttock and down the right leg. denies urinary sx or trauma. no f/c, no n/v/d. no back or flank pain. - Physicial Exam PE: 12/23/18 20:19 NAD, well appearing, eating dinner, PERRL, EOMI, nl conjunctiva, anicteric; neck supple. lungs clear, RRR, abdomen soft nontender, obese. palp right groin TTP, no palp hernia on valsalva, no lymphadenopathy. PRINCE x4, no focal neuro deficits. No peripheral edema. normal color for ethnicity, WWP. - Medical Decision Making 12/23/18 20:19 I, Tahmina Vu MD, attest that this document has been prepared under my direction and personally reviewed by me in its entirety. I further attest, that it accurately reflects all work, treatment, procedures and medical decision -making performed by me. See HPI for details Vital signs reviewed, wnl. no fever, well appearing. Prior notes reviewed, including admissions, discharges and consultations. laboratory results and imaging reviewed, basic labs and lytes wnl, neg UA - baseline leukocytosis noted, paperwork from [place] with [facility] ct 11K, on chronic prednisone that could be etiology. ED course - abdomen soft and benign. no systemic sx, no GI or sx, to suggest intra abdominal or pelvic pathology. no flank or back pain, so doubt renal colic, no hematuria. given analgesia, reassess. pt appears well, on baseline home O2, tolerating her diet and no c/o cp or sob. no systemic sx. [facility]
--- NOTE | 2018-12-23 19:06 | PDOC ---
*Physical Exam - Vital Signs Last Vital Signs Temp Pulse Resp BP Pulse Ox 98 F 83 20 123/74 98 12/23/18 16:49 12/23/18 16:49 12/23/18 16:49 12/23/18 16:49 12/23/18 16:49 ED Treatment Course - LABORATORY CBC & Chemistry Diagram: 12/23/18 18:31 12/23/18 15:28 - ADDITIONAL ORDERS Additional order review: 12/23/18 18:31 RBC 3.85 MCV 92.6 MCHC 33.5 RDW 15.4 MPV 8.6 Medical Decision Making - Medical Decision Making 12/23/18 19:[address] Cedillo. Ms. Bauman is a 53 yo female w/ pmh of GERD, depression, HTN, HLD, COPD, and asthma who presents for evaluation from MD of R groin pain for 2 weeks. Patient currently pending UA for discharge. 12/23/18 20:45 Lab grossly wnl as below. No concern for acute process at this time. Discharging to home. Laboratory Results - last 24 hr 12/23/18 12/23/18 12/23/18 15:28 18:15 18:31 WBC 12.4 H RBC 3.85 Hgb 11.9 Hct 35.6 MCV 92.6 MCH 31.0 MCHC 33.5 RDW 15.4 Plt Count 226 MPV 8.6 Sodium 140 Potassium 3.7 Chloride 104 Carbon Dioxide 28 Anion Gap 7 L BUN 14 Creatinine 0.9 Creat Clearance w eGFR 65.75 Random Glucose 112 H Calcium 8.7 Total Bilirubin 0.2 AST 15 ALT 30 Alkaline Phosphatase 119 H Total Protein 7.2 Albumin 3.5 Urine Color Yellow Urine Appearance Clear Urine pH 8.0 D Ur Specific [place] 1.014 Urine Protein Negative Urine Glucose (UA) Negative Urine Ketones Negative Urine Blood Negative Urine Nitrite Negative Urine Bilirubin Negative Urine Urobilinogen 0.2 Ur Leukocyte Esterase Trace Urine WBC (Auto) 1 Urine RBC (Auto) 1 Urine Casts (Auto) 0 U Epithel Cells (Auto) 0.8 Urine Bacteria (Auto) 7.9 *DC/Admit/Observation/Transfer Diagnosis at time of Disposition: Groin pain Qualifiers: Laterality: right Qualified Code(s): R10.31 - Right lower quadrant pain - Discharge Dispostion Disposition: HOME - Referrals - Patient Instructions Printed Discharge Instructions: DI for Pelvic Pain Additional Instructions: You were evaluated today in the ER for your symptoms. We performed labs and exam and found no concerning findings. You may take over the counter motrin or tylenol for your pain per package instructions. Please follow-up with primary care provider in 2-3 days for further evaluation. Return to ER if any increase in pain, fever, chills, or other concerning findings. - Post Discharge Activity
[2018-12-23 19:23] LABS: EPI CELLS 0.8 /HPF (0-5); URINE APPEARANCE CLEAR; URINE BACTERIA 7.9 /hpf (NEGATIVE); URINE BILIRUBIN NEGATIVE (NEGATIVE); URINE CASTS 0 /hpf (0-8); URINE COLOR YELLOW; URINE GLUCOSE (UA) NEGATIVE (NEGATIVE); URINE KETONE NEGATIVE (NEGATIVE); URINE LEUK ESTERASE TRACE (NEGATIVE); URINE NITRITE NEGATIVE (NEGATIVE); URINE PROTEIN NEGATIVE (NEGATIVE); URINE RBC 1 /hpf (0-4); URINE UROBILINOGEN 0.2 mg/dL (0.2-1.0); URINE WBC 1 /hpf (0-5)
[2018-12-23 20:27] LABS: ALBUMIN 3.5 g/dl (3.4-5.0); ALK PHOS 119 U/L (45-117); ANION GAP 7 MMOL/L (8-16); BILIRUBIN,TOTAL 0.2 mg/dL (0.2-1); BLOOD UREA NITROGEN 14 mg/dL (7-18); CALCIUM 8.7 mg/dL (8.5-10.1); CHLORIDE 104 mmol/L (98-107); CO2 28 mmol/L (21-32); CREATININE 0.9 mg/dL (0.55-1.3); GLUCOSE,RANDOM 112 mg/dL (74-106); POTASSIUM 3.7 mmol/L (3.5-5.1); SGOT/AST 15 U/L (15-37); SGPT/ALT 30 U/L (13-61); SODIUM 140 mmol/L (136-145); TOT PROT 7.2 g/dl (6.4-8.2)
[2018-12-23] MEDS ORDERED: IBUPROFEN 400 MG TABLET (FP) PO ONE ×2 (21:14→21:18)
== END 2018-12-23 22:16 ==
LOC: JER 16:35
DX: R10.31 Right lower quadrant pain (principal); N64.4 Mastodynia; I10 Essential (primary) hypertension; E78.5 Hyperlipidemia, unspecified; J44.9 Chronic obstructive pulmonary disease, unspecified; J45.909 Unspecified asthma, uncomplicated; F32.9 Major depressive disorder, single episode, unspecified; Z99.81 Dependence on supplemental oxygen
CPT/HCPCS: 36415; 80053; 81003; 85027; 99281-25

== ENCOUNTER 2019-01-30 21:41 | Inpatient (IN) | payer OTHER ==
--- NOTE | 2019-01-30 23:42 | PDOC ---
History of Present Illness - General Chief Complaint: Shortness of Breath Stated Complaint: SHORTNESS OF BREATH Time Seen by Provider: 01/30/19 22:37 History Source: Patient Exam Limitations: No Limitations - History of Present Illness Initial Comments: 01/30/19 23:40 53F with a PMH of Depression, COPD (on 1L), GERD, and HLD who presents with 3 days of fever, chills, muscle aches and cough. The patient also endorses SOB without CP. She states that she is normally on 1L and is in rehab to wean her off of O2. She denies abdominal pain, swelling, and any rashes. She states that she tried to use her inhaler but does not know how many times, but it was not helping her SOB. Past History - Past Medical History Allergies/Adverse Reactions: Allergies Allergy/AdvReac Type Severity Reaction Status Date / Time No Known Allergies Allergy Verified 01/30/19 22:06 Home Medications: Ambulatory Orders Acetaminophen [Tylenol] 650 mg PO ASDIR 10/05/18 Albuterol 0.083% Nebulizer Jyoti [Ventolin 0.083% Nebulizer Soln -] 1 neb NEB QID 10/05/18 Albuterol 2.5/Ipratropium 0.5 [Duoneb -] 1 neb NEB Q4H 10/05/18 Budesonide/Formeterol Fumarate [SYMBICORT 160/4.5mcg -] 1 inh PO BID 10/05/18 Mag Hydrox/Al Hydrox/Simeth [Mylanta Oral Suspension -] 1 dose PO ASDIR Melatonin 5 mg PO DAILY 10/05/18 Mirtazapine [Remeron -] 30 mg PO DAILY 10/05/18 95/Iron Fum/Folic/Dha [ + Dha Combo Pack] 1 each PO DAILY 10/05 Sertraline HCl [Zoloft -] 50 mg PO DAILY 10/05/18 Thiamine HCl [B-1] 100 mg PO HS 10/05/18 traZODone HCL [Trazodone HCl] 100 mg PO ASDIR 10/05/18 Albuterol Sulfate Inhaler - [Ventolin HFA Inhaler -] 2 puff IH Q4H PRN 10/08/18 Simvastatin 20 mg PO HS 10/08/18 Aclidinium [place] [Tudorza Pressair] 400 mcg IH DAILY 10/12/18 Budesonide/Formeterol Fumarate [SYMBICORT 160/4.5mcg -] 2 puff IH BID inhaler 10/12/18 Nicotine Patch [Nicoderm Patch -] 21 mg TD DAILY patch 10/12/18 Ranitidine [Zantac -] 150 mg PO BID tablet 10/12/18 Sodium Chloride Nasal [place] [[place] -] 2 spray NS BID spray Furosemide [Lasix -] 40 mg PO DAILY #30 tablet MDD 1 11/02/18 Labetalol HCl [Normodyne -] 50 mg PO BID #30 tablet MDD 2 11/05/18 Thiamine HCl [Vitamin B1 -] 100 mg PO HS #30 tablet MDD 1 11/08/18 predniSONE [Deltasone -] 7.5 mg PO DAILY #30 tablet MDD 1 11/08/18 Mirtazapine 30 mg PO DAILY 01/28/19 Anemia: No Asthma: Yes (ALBUTEROL) Cancer: No Cardiac Disorders: No CVA: No COPD: Yes (SYMBICORT) CHF: No Dementia: No Diabetes: No GI Disorders: No Disorders: No HTN: Yes (NIFEDIPINE) Hypercholesterolemia: Yes Kidney Stones: No Liver Disease: No Seizures: No Thyroid Disease: No - Surgical History Abdominal Surgery: Yes (APPENDICITIS AT AGE 17) Appendectomy: Yes Cardiac Surgery: No Cholecystectomy: No Lung Surgery: No Neurologic Surgery: No Orthopedic Surgery: No - Immunization History Immunization Up to Date: Yes - Suicide/Smoking/Psychosocial Hx Smoking History: Never smoked Have you smoked in the past 12 months: Yes Number of Cigarettes Smoked Daily: 5 If you are a former smoker, when did you quit?: 08/2018 Information on smoking cessation initiated: No 'Breaking Loose' booklet given: 09/04/18 Hx Alcohol Use: No Drug/Substance Use Hx: No Substance Use Type: Alcohol, Cocaine Hx Substance Use Treatment: Yes (completed inpatient rehab in 1993) Review of Systems - Review of Systems Able to Perform ROS?: Yes Comments:: 01/31/19 00:34 GENERAL/CONSTITUTIONAL: + for fever or chills. No weakness. HEAD, EYES, EARS, NOSE AND THROAT: No change in vision. No ear pain or discharge. No sore throat. CARDIOVASCULAR: No chest pain, palpitations, or lightheadedness. RESPIRATORY: + for SOB. No cough, wheezing, or hemoptysis. GASTROINTESTINAL: No nausea, vomiting, diarrhea, constipation, or abdominal pain. GENITOURINARY: No dysuria, frequency, hematuria, or change in urination. MUSCULOSKELETAL: No joint or muscle swelling or pain. No neck or back pain. SKIN: No rash or lesions. NEUROLOGIC: No headache, numbness, tingling, focal weakness, loss of consciousness, or change in strength/sensation. Is the patient limited Gabonese proficient: No *Physical Exam - Vital Signs Last Vital Signs Temp Pulse Resp BP Pulse Ox 98.8 F 83 19 128/82 100 01/30/19 21:41 01/30/19 21:41 01/30/19 21:41 01/30/19 21:41 01/30/19 21:41 - Physical Exam Comments: 01/31/19 00:36 GENERAL: Well developed, well nourished. Awake and alert. No acute distress. HEENT: Normocephalic, atraumatic. Hearing grossly normal. Moist mucous membranes. PERRLA, EOMI. No conjunctival pallor. Sclera are non-icteric. NECK: Supple. Full ROM. No JVD. CARDIOVASCULAR: Regular rate and rhythm. No murmurs, rubs, or gallops. PULMONARY: No evidence of respiratory distress. Decreased lung sounds bilaterally. ABDOMINAL: Soft. Non-tender. Non-distended. No rebound or guarding. GENITOURINARY: No CVA tenderness bilaterally. MUSCULOSKELETAL: Normal range of motion at all joints. No bony deformities or tenderness. EXTREMITIES: No cyanosis. No clubbing. No edema. No calf tenderness or swelling. SKIN: Warm and dry. Normal capillary refill. No rashes. No jaundice. NEUROLOGICAL: Alert, awake, appropriate. Cranial nerves 2-12 grossly intact. Normal speech. Gait is normal without ataxia. PSYCHIATRIC: Cooperative. Good eye contact. Appropriate mood and affect. ED Treatment Course - LABORATORY CBC & Chemistry Diagram: 01/30/19 23:50 01/30/19 23:50 - RADIOLOGY Radiology Studies Ordered: Category Date Time Status CHEST PA & LAT [RAD] Stat Radiology 01/30/19 22:49 Completed Medical Decision Making - Medical Decision Making 01/31/19 00:37 53F with COPD presents with SOB, chills, cough, and fever, concerning for COPD exacerbation vs influenza. Pending labs and imaging. 01/31/19 00:44 CXR negative for consolidation. 01/31/19 04:07 Pt continues to be hypoxic without good air movement. Will microblog for admission. *DC/Admit/Observation/Transfer Diagnosis at time of Disposition: COPD (chronic obstructive pulmonary disease) Qualifiers: COPD type: unspecified COPD Qualified Code(s): J44.9 - Chronic obstructive pulmonary disease, unspecified - Discharge Dispostion Condition at time of disposition: Guarded Decision to Admit order: Yes - Referrals Referrals: Lalo Bhagat [Primary Care Provider] - - Patient Instructions - Post Discharge Activity
[2019-01-31 00:08] LABS: VENOUS PC02 44.5 mmHg (41-51); VENOUS PH 7.41 (7.31-7.41); VENOUS PO2 46.9 mmHg (30-40)
[2019-01-31 00:09] LABS: BASO % 1.1 % (0-2.0); EOS % 1.8 % (0-4.5); HEMATOCRIT 36.1 % (32.4-45.2); HEMOGLOBIN 11.8 GM/dL (10.7-15.3); LYMPH % 19.9 % (8-40); MCH 29.5 pg (25.7-33.7); MCHC 32.6 g/dl (32.0-36.0); MEAN CELL VOLUME 90.6 fl (80-96); MEAN PLT VOLUME 8.2 fl (7.5-11.1); NEUT % 70.2 % (42.8-82.8); PLATELET COUNT 244 K/MM3 (134-434); RBC 3.98 M/mm3 (3.60-5.2); RDW 15.4 % (11.6-15.6); WHITE BLOOD COUNT 13.9 K/mm3 (4.0-10.0)
[2019-01-31 00:21] LABS: INR 1.02 (0.83-1.09)
[2019-01-31 00:36] LABS: ALBUMIN 3.5 g/dl (3.4-5.0); ALK PHOS 121 U/L (45-117); ANION GAP 7 MMOL/L (8-16); BILIRUBIN,TOTAL 0.2 mg/dL (0.2-1); BLOOD UREA NITROGEN 15 mg/dL (7-18); CHLORIDE 104 mmol/L (98-107); CO2 28 mmol/L (21-32); CREATININE 0.6 mg/dL (0.55-1.3); GLUCOSE,RANDOM 76 mg/dL (74-106); POTASSIUM 3.4 mmol/L (3.5-5.1); SGOT/AST 11 U/L (15-37); SGPT/ALT 22 U/L (13-61); SODIUM 138 mmol/L (136-145); TOT PROT 7.3 g/dl (6.4-8.2)
[2019-01-31] MEDS ORDERED: ALBUTEROL SO4 2.5/IPRATROPIUM 0.5 INH SOL 3 ML VIAL.NEB. NEB ONE ×2 (00:38→00:53)
--- NOTE | 2019-01-31 01:39 | PDOC ---
Documentation entered by Cecilia Boudreaux SCRIBE, acting as scribe for Julio C Mendoza MD. Julio C Mendoza MD: This documentation has been prepared by the Janusz pablo Daisy, SCRIBE, under my direction and personally reviewed by me in its entirety. I confirm that the documentation accurately reflects all work, treatment, procedures, and medical decision making performed by me. Attending Attestation - Resident Resident Name: Parveen Lyons - ED Attending Attestation I have performed the following: I have examined & evaluated the patient, The case was reviewed & discussed with the resident, I agree w/resident's findings & plan - HPI HPI: 01/30/19 23:44 The patient is a 53YOF, currently at [facility] for rehab, with a PMH of depression, COPD (on 2L), GERD, and HLD who presents to the ER with a 3 day history of shortness of breath. Allergies: NKDA - Physicial Exam PE: 01/31/19 01:37 Patient is awake and alert, obese, in mild respiratory distress Normocephalic, atraumatic PERRLA, EOMI No JVD Decreased air entry bilaterally with end expiratory wheezing bilaterally Minimal lower extremity edema - Medical Decision Making 01/31/19 01:38 53-year-old female with history of COPD, currently on 7 mg of prednisone daily, supplemental O2 via nasal cannula at 1 L/m presents with worsening shortness of breath at rest and with minimal exertion associated with purulent productive sputum. In the ER, patient displays significant decreased air entry bilaterally with and expiratory wheezing. Chest x-ray reveals no evidence of infiltrate or effusion, apical pleural thickening is noted. We'll administer Combivent therapy , we'll consider increasing steroids. Likely admission.
[2019-01-31] MEDS ORDERED: methylPREDNISolone NA SUCC 125 MG/2 ML VIAL IVPUSH ONE (04:18)
[2019-01-31] MEDS ORDERED: methylPREDNISolone NA SUCC 125 MG/2 ML VIAL ONE (04:26)
--- NOTE | 2019-01-31 05:35 | HP ---
CHIEF COMPLAINT: shortness of breath PCP: Omer HISTORY OF PRESENT ILLNESS: 53 year old female presented from [facility] to the ED with the chief complaint of " Worsening shortness of breath". Patient with multiple episodes of COPD exacerbations, currently undergoing pulmonary rehab. Denied any fevers, chills, or recent travels. Denied exposure to second hand smoke. She is chronic steroid use- says she takes 7mg po daily prednisone for the last 5 months at least. ER course was notable for: (1) duonebs x3 (2) cxr (3) Recent Travel:no PAST MEDICAL HISTORY: former-polysubstance abuse (alcohol, crack cocaine), anxiety, depression, asthma, COPD, hypertension, hyperlipidemia PAST SURGICAL HISTORY: appendectomy Social History: Smoking: Quit smoking 08/2018. Smoke since a teenager approx 15 cigarettes/ day. Alcohol: Quit drinking 08/2018. Used to drink 1 pint of liquor on occasion. Drugs: Last cocaine use 08/2018 Family History: Mother: hypertension, CVA Father: at 62 years old from myocardial infarction Daughter: 23 years old, healthy Allergies No Known Allergies Allergy (Verified 01/30/19 22:06) HOME MEDICATIONS: Home Medications Medication Instructions Recorded Acetaminophen [Tylenol] 650 mg PO ASDIR 10/05/18 Albuterol 0.083% Nebulizer Jyoti 1 neb NEB QID 10/05/18 [Ventolin 0.083% Nebulizer Soln -] Albuterol 2.5/Ipratropium 0.5 1 neb NEB Q4H 10/05/18 [Duoneb -] Budesonide/Formeterol Fumarate 1 inh PO BID 10/05/18 [SYMBICORT 160/4.5mcg -] Mag Hydrox/Al Hydrox/Simeth 1 dose PO ASDIR 10/05/18 [Mylanta Oral Suspension -] Melatonin 5 mg PO DAILY 10/05/18 Mirtazapine [Remeron -] 30 mg PO DAILY 10/05/18 95/Iron Fum/Folic/Dha 1 each PO DAILY 10/05/18 [ + Dha Combo Pack] Sertraline HCl [Zoloft -] 50 mg PO DAILY 10/05/18 Thiamine HCl [B-1] 100 mg PO HS 10/05/18 traZODone HCL [Trazodone HCl] 100 mg PO ASDIR 10/05/18 Albuterol Sulfate Inhaler - 2 puff IH Q4H PRN 10/08/18 [Ventolin HFA Inhaler -] Simvastatin 20 mg PO HS 10/08/18 Aclidinium [place] [Tudorza 400 mcg IH DAILY 10/12/18 Pressair] Budesonide/Formeterol Fumarate 2 puff IH BID inhaler 10/12/18 [SYMBICORT 160/4.5mcg -] Nicotine Patch [Nicoderm Patch -] 21 mg TD DAILY patch 10/12/18 Ranitidine [Zantac -] 150 mg PO BID tablet 10/12/18 Sodium Chloride Nasal [place] [[place] 2 spray NS BID spray 10/12/18 [place] Nas[place] -] Furosemide [Lasix -] 40 mg PO DAILY #30 tablet MDD 1 11/02/18 Labetalol HCl [Normodyne -] 50 mg PO BID #30 tablet MDD 2 11/05/18 Thiamine HCl [Vitamin B1 -] 100 mg PO HS #30 tablet MDD 1 11/08/18 predniSONE [Deltasone -] 7.5 mg PO DAILY #30 tablet MDD 1 11/08/18 Mirtazapine 30 mg PO DAILY 01/28/19 REVIEW OF SYSTEMS CONSTITUTIONAL: Absent: fever, chills, diaphoresis, generalized weakness, malaise, loss of appetite, weight change HEENT: Absent: rhinorrhea, nasal congestion, throat pain, throat swelling, difficulty swallowing, mouth swelling, ear pain, eye pain, visual changes CARDIOVASCULAR: Absent: chest pain, syncope, palpitations, irregular heart rate, lightheadedness , peripheral edema RESPIRATORY: Absent: , orthopnea, wheezing, stridor, hemoptysis present- cough, shortness of breath, dyspnea with exertion GASTROINTESTINAL: Absent: abdominal pain, abdominal distension, nausea, vomiting, diarrhea, constipation, melena, hematochezia GENITOURINARY: Absent: dysuria, frequency, urgency, hesitancy, hematuria, flank pain, genital pain MUSCULOSKELETAL: Absent: myalgia, arthralgia, joint swelling, back pain, neck pain SKIN: Absent: rash, itching, pallor HEMATOLOGIC/IMMUNOLOGIC: Absent: easy bleeding, easy bruising, lymphadenopathy, frequent infections ENDOCRINE: Absent: unexplained weight gain, unexplained weight loss, heat intolerance, cold intolerance NEUROLOGIC: Absent: headache, focal weakness or paresthesias, dizziness, unsteady gait, seizure, mental status changes, bladder or bowel incontinence PSYCHIATRIC: Absent: anxiety, depression, suicidal or homicidal ideation, hallucinations. PHYSICAL EXAMINATION Vital Signs - 24 hr 01/30/19 21:41 Temperature 98.8 F Pulse Rate 83 Respiratory 19 Rate Blood Pressure 128/82 O2 Sat by Pulse 100 Oximetry (%) GENERAL: Awake, alert, and fully oriented, drowsy, obese HEAD: Normal with no signs of trauma. EYES: Pupils equal, round and reactive to light, extraocular movements intact, sclera anicteric, conjunctiva clear. No lid lag. EARS, NOSE, THROAT: Ears normal, nares patent, oropharynx clear without exudates. Moist mucous membranes. NECK: Normal range of motion, supple without lymphadenopathy, JVD, or masses. LUNGS: decreased breath sound b/l, do not appreciated wheezing at this time HEART: Regular rate and rhythm, normal S1 and S2 without murmur, rub or gallop. ABDOMEN: Soft, obese, nontender, not distended, normoactive bowel sounds, no guarding, no rebound, no masses. MUSCULOSKELETAL: Normal range of motion at all joints. No bony deformities or tenderness. No CVA tenderness. UPPER EXTREMITIES: 2+ pulses, warm, well-perfused. No cyanosis. No clubbing. No peripheral edema. LOWER EXTREMITIES: 2+ pulses, warm, well-perfused. No calf tenderness. No peripheral edema. NEUROLOGICAL: Cranial nerves II-XII intact. Normal speech. Normal gait. PSYCHIATRIC: Cooperative. Good eye contact. Appropriate mood and affect. SKIN: Warm, dry, normal turgor, no rashes or lesions noted, normal capillary refill. Laboratory Results - last 24 hr 01/30/19 01/30/19 01/30/19 23:50 23:50 23:50 WBC 13.9 H RBC 3.98 Hgb 11.8 Hct 36.1 MCV 90.6 MCH 29.5 MCHC 32.6 RDW 15.4 Plt Count 244 MPV 8.2 Absolute Neuts (auto) 9.7 H Neutrophils % 70.2 D Lymphocytes % 19.9 D Monocytes % 7.0 Eosinophils % 1.8 Basophils % 1.1 D Nucleated RBC % 0 PT with INR 12.00 INR 1.02 VBG pH 7.41 POC VBG pCO2 44.5 POC VBG pO2 46.9 H VBG HCO3 27.6 VBG O2 Sat ([place]) 80.0 VBG Base Excess 3.0 H Sodium Potassium Chloride Carbon Dioxide Anion Gap BUN Creatinine Est GFR (CKD-EPI)AfAm Est GFR (CKD-EPI)NonAf Random Glucose Calcium Total Bilirubin AST ALT Alkaline Phosphatase Creatine Kinase Troponin I Total Protein Albumin Influenza A (Rapid) Influenza B (Rapid) 01/30/19 01/31/19 23:50 00:42 WBC RBC Hgb Hct MCV MCH MCHC RDW Plt Count MPV Absolute Neuts (auto) Neutrophils % Lymphocytes % Monocytes % Eosinophils % Basophils % Nucleated RBC % PT with INR INR VBG pH POC VBG pCO2 POC VBG pO2 VBG HCO3 VBG O2 Sat (Alana) VBG Base Excess Sodium 138 Potassium 3.4 L Chloride 104 Carbon Dioxide 28 Anion Gap 7 L BUN 15 Creatinine 0.6 Est GFR (CKD-EPI)AfAm 121.46 Est GFR (CKD-EPI)NonAf 104.80 Random Glucose 76 Calcium 9.0 Total Bilirubin 0.2 AST 11 L ALT 22 Alkaline Phosphatase 121 H Creatine Kinase 119 Troponin I < 0.02 Total Protein 7.3 Albumin 3.5 Influenza A (Rapid) Negative Influenza B (Rapid) Negative cxr reviewed ekg reviewed ASSESSMENT/PLAN: #COPD exacerbation- now no wheezing on lung auscultation. No CO2 retention on VBG. Patient evaluated by cardiology in october and did not have CHF or evidence of CAD. Troponin this time negative. -admit to med/surg -supplemental o2 via nasal cannula, maintain 02 sat >90 % -duonebs q6hrs -methylprednisone 40mg IV q12hrs -azithromcyin 500mg IV daily -pulmonary consult -nicotine patch for prior tobacco abuse #hyperlipidemia -c/w simvastatin # hypertension, -labetolol -furosemide #Prior etoh abuse -thiamine supplement #Hypokalemia - supplement K #anxiety/depression -home dose- mirtazepine zoloft, trazadone, #DVT ppx -heparin sc Visit type - Emergency Visit Emergency Visit: Yes ED Registration Date: 01/31/19 Care time: The patient presented to the Emergency Department on the above date and was hospitalized for further evaluation of their emergent condition. - New Patient This patient is new to me today: Yes Date on this admission: 01/31/19 - Critical Care Critical Care patient: No
[2019-01-31] MEDS ORDERED: ALBUTEROL SO4 0.042% IH SOL 1.25 MG/3 ML VIAL.NEB NEB ONE (05:52)
[2019-01-31] MEDS ORDERED: traZODone HCL 100 MG TABLET (FP) PO SCH (06:00)
[2019-01-31] MEDS ORDERED: ALBUTEROL SO4 0.083% IH SOL 2.5 MG/3 ML VIAL.NEB. NEB ONE ×2 (06:03→06:05)
[2019-01-31] MEDS: AZITHROMYCIN IVPB 500 MG/250 ML BAG IVPB SCH (10:59)
[2019-01-31] MEDS: FUROSEMIDE 40 MG TABLET (FP) PO SCH (11:02)
[2019-01-31] MEDS: HEPARIN NA (PORCINE) 5,000 UNITS/ML 1ML VIAL SQ SCH ×2 (11:02→21:45)
[2019-01-31] MEDS: RANITIDINE HCL 150 MG TABLET (FP) PO SCH ×2 (11:04→21:45)
[2019-01-31] MEDS: SERTRALINE HCL 50 MG TABLET (FP) PO SCH (11:04)
[2019-01-31] MEDS: LABETALOL HCL 100 MG TABLET (FP) PO SCH ×2 (11:04→21:45)
[2019-01-31] MEDS: methylPREDNISolone NA SUCC 40 MG/1 ML VIAL IVPUSH SCH ×2 (11:04→17:31)
[2019-01-31] MEDS: NICOTINE 21 MG/24 HOURS TOPICAL PATCH TD SCH (12:06)
--- NOTE | 2019-01-31 12:48 | CON.PULM ---
Consult Consult Specialty:: PULMONARY Referred by:: Dr Tello Reason for Consultation:: COPD - History of Present Illness Chief Complaint: shortness of breath History of Present Illness: 53yo female with h/o HTN, hyperlipidemia, DM, COPD on chronic steroids, former smoker who was transferred from pulmonary rehab for worsening shortness of breath. She denies any chest pain or palpitations. No fevers, chills or sweats but has been experiencing a cough productive of yellow sputum which is different from her baseline. Also with increased wheezing. She has been on prednisone 7mg daily for the past few months, was on 40mg daily prior. - History Source History Provided By: Patient, Medical Record Limitations to Obtaining History: No Limitations - Past Medical History Cardio/Vascular: Yes: HTN Pulmonary: Yes: Bronchitis, COPD, O2 Dependent, Pneumonia. No: Pulmonary Embolus, Pulmonary Fibrosis, Sleep Apnea ...LMP: 09/26/16 Psych: Yes: Anxiety, Depression - Past Surgical History Past Surgical History: Yes: Appendectomy - Alcohol/Substance Use Hx Alcohol Use: No - Smoking History Smoking history: Never smoked Have you smoked in the past 12 months: Yes Aproximately how many cigarettes per day: 5 If you are a former smoker, when did you quit?: 08/2018 - Social History Usual Living Arrangement: Care Home ADL: Independent Home Medications - Allergies Allergies/Adverse Reactions: Allergies Allergy/AdvReac Type Severity Reaction Status Date / Time No Known Allergies Allergy Verified 01/30/19 22:06 - Home Medications Home Medications: Ambulatory Orders Acetaminophen [Tylenol] 650 mg PO ASDIR 10/05/18 Albuterol 0.083% Nebulizer Jyoti [Ventolin 0.083% Nebulizer Soln -] 1 neb NEB QID 10/05/18 Albuterol 2.5/Ipratropium 0.5 [Duoneb -] 1 neb NEB Q4H 10/05/18 Budesonide/Formeterol Fumarate [SYMBICORT 160/4.5mcg -] 1 inh PO BID 10/05/18 Mag Hydrox/Al Hydrox/Simeth [Mylanta Oral Suspension -] 1 dose PO ASDIR Melatonin 5 mg PO DAILY 10/05/18 Mirtazapine [Remeron -] 30 mg PO DAILY 10/05/18 95/Iron Fum/Folic/Dha [ + Dha Combo Pack] 1 each PO DAILY 10/05 Sertraline HCl [Zoloft -] 50 mg PO DAILY 10/05/18 Thiamine HCl [B-1] 100 mg PO HS 10/05/18 traZODone HCL [Trazodone HCl] 100 mg PO ASDIR 10/05/18 Albuterol Sulfate Inhaler - [Ventolin HFA Inhaler -] 2 puff IH Q4H PRN 10/08/18 Simvastatin 20 mg PO HS 10/08/18 Aclidinium [place] [Tudorza [place]] 400 mcg IH DAILY 10/12/18 Budesonide/Formeterol Fumarate [SYMBICORT 160/4.5mcg -] 2 puff IH BID inhaler 10/12/18 Nicotine Patch [Nicoderm Patch -] 21 mg TD DAILY patch 10/12/18 Ranitidine [Zantac -] 150 mg PO BID tablet 10/12/18 Sodium Chloride Nasal [place] [[place] -] 2 spray NS BID spray Furosemide [Lasix -] 40 mg PO DAILY #30 tablet MDD 1 11/02/18 Labetalol HCl [Normodyne -] 50 mg PO BID #30 tablet MDD 2 11/05/18 Thiamine HCl [Vitamin B1 -] 100 mg PO HS #30 tablet MDD 1 11/08/18 predniSONE [Deltasone -] 7.5 mg PO DAILY #30 tablet MDD 1 11/08/18 Mirtazapine 30 mg PO DAILY 01/28/19 Family Disease History - Family Disease History Family Disease History: Heart Disease: Father (HTN, ), Mother Review of Systems - Review of Systems Constitutional: reports: Weakness. denies: Chills, Fever Eyes: denies: Recent Change in Vision HENT: denies: Nasal Congestion, Throat Pain Neck: denies: Stiffness, Tenderness Cardiovascular: reports: Shortness of Breath. denies: Chest Pain, Edema, Palpitations Respiratory: reports: Cough, Wheezing. denies: Hemoptysis Gastrointestinal: denies: Abdominal Pain, Nausea, Vomiting Genitourinary: denies: Dysuria, Hematuria Neurological: denies: Dizziness, Headache Endocrine: denies: Unexplained Weight Loss Physical Exam Vital Sings: Vital Signs Temperature 98.8 F 01/31/19 09:00 Pulse Rate 81 01/31/19 09:00 Respiratory Rate 20 01/31/19 09:00 Blood Pressure 137/80 01/31/19 09:00 O2 Sat by Pulse Oximetry (%) 99 01/31/19 06:34 Constitutional: Yes: Calm Eyes: Yes: Conjunctiva Clear, EOM Intact HENT: Yes: Atraumatic, Normocephalic Neck: Yes: Supple, Trachea Midline Cardiovascular: Yes: Regular Rate and Rhythm Respiratory: Yes: Poor Air Entry ...Clubbing: No Gastrointestinal: Yes: Normal Bowel Sounds, Soft. No: Tenderness Edema: No Neurological: Yes: Alert, Oriented Labs: CBC, BMP 01/30/19 23:50 01/30/19 23:50 Imaging - Results Chest X-ray: Report Reviewed, Image Reviewed (no acute infiltrates) Problem List - Problems (1) COPD with acute exacerbation Code(s): J44.1 - CHRONIC OBSTRUCTIVE PULMONARY DISEASE W (ACUTE) EXACERBATION (2) Acute bronchitis Code(s): J20.9 - ACUTE BRONCHITIS, UNSPECIFIED (3) Bronchiectasis Code(s): J47.9 - BRONCHIECTASIS, UNCOMPLICATED Assessment/Plan Acute COPD Exacerbation Acute Bronchitis Bronchiectasis HTN Hyperlipidemia - IV medrol - inhaled bronchodilators - O2 to keep Spo2 >90% - agree with azithromycin - glucose control while on systemic steroids - DVT prophylaxis Thank you for this consult Lalo Patel MD
--- NOTE | 2019-01-31 13:25 | PN ---
Progress Note, Physician Chief Complaint: patient seen and examined getting nebulizer - Current Medication List Current Medications: Active Medications Albuterol/Ipratropium (Duoneb -) 1 amp NEB RQID [facility] Atorvastatin Calcium (Lipitor -) 10 mg PO HS [facility] Furosemide (Lasix -) 40 mg PO DAILY [facility] Last Admin: 01/31/19 11:02 Dose: 40 mg Heparin Sodium (Porcine) (Heparin -) 5,000 unit SQ BID [facility] Last Admin: 01/31/19 11:02 Dose: 5,000 unit Azithromycin (Zithromax 500mg Ivpb (Pre-Docked)) 500 mg in 250 mls @ 250 mls/ hr IVPB DAILY [facility] Last Admin: 01/31/19 10:59 Dose: 250 mls/hr Labetalol HCl (Normodyne -) 50 mg PO BID [facility] Last Admin: 01/31/19 11:04 Dose: 50 mg Methylprednisolone Sodium Succinate (Solu-Medrol -) 40 mg IVPUSH Q8H-IV [facility] Last Admin: 01/31/19 11:04 Dose: 40 mg Mirtazapine (Remeron -) 30 mg PO [facility] Nicotine (Nicoderm Patch -) 21 mg TD DAILY [facility] Last Admin: 01/31/19 12:06 Dose: Not Given Ranitidine HCl (Zantac -) 150 mg PO BID [facility] Last Admin: 01/31/19 11:04 Dose: 150 mg Sertraline HCl (Zoloft -) 50 mg PO DAILY [facility] Last Admin: 01/31/19 11:04 Dose: 50 mg Thiamine HCl (Vitamin B1 -) 100 mg PO [facility] Trazodone HCl (Desyrel -) 100 mg PO ASDIR [facility] - Objective Vital Signs: Vital Signs Temperature 98.8 F 01/31/19 09:00 Pulse Rate 81 01/31/19 09:00 Respiratory Rate 20 01/31/19 09:00 Blood Pressure 137/80 01/31/19 09:00 O2 Sat by Pulse Oximetry (%) 99 01/31/19 06:34 Constitutional: Yes: Calm Cardiovascular: Yes: Regular Rate and Rhythm, S1, S2 Respiratory: Yes: Diminished Gastrointestinal: Yes: Normal Bowel Sounds, Soft Neurological: Yes: Alert, Oriented Labs: CBC, BMP 01/30/19 23:50 01/30/19 23:50 INR, PTT INR 1.02 (0.83-1.09) 01/30/19 23:50 Problem List - Problems (1) COPD with acute exacerbation Assessment/Plan: oxygen nebulizer iv medrol appreciate pulm consult Code(s): J44.1 - CHRONIC OBSTRUCTIVE PULMONARY DISEASE W (ACUTE) EXACERBATION (2) Depression Assessment/Plan: remeron ,zoloft trazadone Code(s): F32.9 - MAJOR DEPRESSIVE DISORDER, SINGLE EPISODE, UNSPECIFIED Qualifiers: Depression Type: unspecified Qualified Code(s): F32.9 - Major depressive disorder, single episode, unspecified (3) Hypercholesterolemia Assessment/Plan: statin Code(s): E78.00 - PURE HYPERCHOLESTEROLEMIA, UNSPECIFIED (4) Hypertension Assessment/Plan: labetolol Code(s): I10 - ESSENTIAL (PRIMARY) HYPERTENSION Qualifiers: Hypertension type: essential hypertension Qualified Code(s): I10 - Essential (primary) hypertension
[2019-01-31 13:50] LABS: BASO % 0.1 % (0-2.0); HEMATOCRIT 37.9 % (32.4-45.2); HEMOGLOBIN 12.3 GM/dL (10.7-15.3); LYMPH % 3.9 % (8-40); MCH 29.4 pg (25.7-33.7); MCHC 32.5 g/dl (32.0-36.0); MEAN CELL VOLUME 90.4 fl (80-96); MEAN PLT VOLUME 8.3 fl (7.5-11.1); MONO % 0.3 % (3.8-10.2); NEUT % 95.7 % (42.8-82.8); PLATELET COUNT 293 K/MM3 (134-434); RBC 4.19 M/mm3 (3.60-5.2); RDW 15.1 % (11.6-15.6); WHITE BLOOD COUNT 13.1 K/mm3 (4.0-10.0)
[2019-01-31 14:16] LABS: ALBUMIN 3.7 g/dl (3.4-5.0); BILIRUBIN,TOTAL 0.3 mg/dL (0.2-1); CALCIUM 9.4 mg/dL (8.5-10.1); POTASSIUM 4.1 mmol/L (3.5-5.1); TOT PROT 7.9 g/dl (6.4-8.2)
[2019-01-31 14:27] LABS: ANISOCYTOSIS 1+; MACROCYTOSIS 0; PLATELET ESTIMATE NORMAL
[2019-01-31] MEDS ORDERED: POTASSIUM CHLORIDE TABS 20 MEQ TABLET.ER (FP) PO ONE ×2 (14:30→14:49)
[2019-01-31] MEDS: ALBUTEROL SO4 2.5/IPRATROPIUM 0.5 INH SOL 3 ML VIAL.NEB. NEB SCH ×2 (16:31→20:29)
--- NOTE | 2019-01-31 17:17 | EKG ---
Test Reason : Blood Pressure : / mmHG Vent. Rate : 089 BPM Atrial Rate : 089 BPM P-R Int : 150 ms QRS Dur : 074 ms QT Int : 376 ms P-R-T Axes : 075 065 053 degrees QTc Int : 457 ms POOR DATA QUALITY, INTERPRETATION MAY BE ADVERSELY AFFECTED NORMAL SINUS RHYTHM NORMAL ECG WHEN COMPARED WITH ECG OF 30-OCT-2018 18:56, NO SIGNIFICANT CHANGE WAS FOUND Confirmed by KACIE TORRES, PIPER ([id number]) on 01/31/2019 5:17:40 PM Referred By: Confirmed By:PIPER HESTER MD
[2019-01-31] MEDS: ACETAMINOPHEN 325 MG TABLET (FP) PO PRN ×2 (19:49→23:17)
[2019-01-31 21:02] LABS: PH,URINE 6.5 (5.0-8.0); URINE APPEARANCE CLEAR; URINE BILIRUBIN NEGATIVE (NEGATIVE); URINE COLOR YELLOW; URINE GLUCOSE (UA) NEGATIVE (NEGATIVE); URINE KETONE NEGATIVE (NEGATIVE); URINE LEUK ESTERASE NEGATIVE (NEGATIVE); URINE NITRITE NEGATIVE (NEGATIVE); URINE PROTEIN NEGATIVE (NEGATIVE)
[2019-01-31] MEDS ORDERED: MIRTAZAPINE 15 MG TABLET (FP) ONE (21:43)
[2019-01-31] MEDS: MIRTAZAPINE 30 MG TABLET (FP) PO SCH (21:45)
[2019-01-31] MEDS: THIAMINE HCL 100 MG TABLET (FP) PO SCH (21:45)
[2019-01-31] MEDS: ATORVASTATIN CA 10 MG TABLET (FP) PO SCH (21:45)
[2019-01-31] MEDS ORDERED: CLOTRIMAZOLE 1% VAGINAL CREAM WITH APPLICATOR 45 GM TUBE VG SCH (22:00)
[2019-01-31] MEDS ORDERED: THIAMINE HCL 100 MG TABLET (FP) PO SCH (22:00)
[2019-01-31] MEDS: traZODone HCL 100 MG TABLET (FP) PO SCH (23:17)
[2019-01-31] MEDS ORDERED: NAPROXEN 500 MG TABLET (FP) PO ONE (23:30)
[2019-02-01] MEDS: methylPREDNISolone NA SUCC 40 MG/1 ML VIAL IVPUSH SCH ×3 (02:10→17:45)
[2019-02-01] MEDS: MIRTAZAPINE 30 MG TABLET (FP) PO SCH (04:03)
[2019-02-01] MEDS ORDERED: ALBUTEROL SO4 0.083% IH SOL 2.5 MG/3 ML VIAL.NEB. NEB ONE (04:19)
[2019-02-01] MEDS: ALBUTEROL SO4 0.083% IH SOL 2.5 MG/3 ML VIAL.NEB. NEB PRN (04:20)
[2019-02-01 07:34] LABS: BASO % 0.1 % (0-2.0); HEMATOCRIT 35.6 % (32.4-45.2); HEMOGLOBIN 11.5 GM/dL (10.7-15.3); LYMPH % 6.5 % (8-40); MCH 29.5 pg (25.7-33.7); MCHC 32.3 g/dl (32.0-36.0); MEAN CELL VOLUME 91.2 fl (80-96); MEAN PLT VOLUME 8.7 fl (7.5-11.1); NEUT % 89.4 % (42.8-82.8); PLATELET COUNT 277 K/MM3 (134-434); RDW 14.7 % (11.6-15.6); WHITE BLOOD COUNT 19.2 K/mm3 (4.0-10.0)
[2019-02-01 07:41] LABS: ALBUMIN 3.4 g/dl (3.4-5.0); BILIRUBIN,TOTAL 0.2 mg/dL (0.2-1); CALCIUM 9.6 mg/dL (8.5-10.1); CREATININE 0.6 mg/dL (0.55-1.3); POTASSIUM 4.3 mmol/L (3.5-5.1); TOT PROT 7.2 g/dl (6.4-8.2)
[2019-02-01] MEDS: ALBUTEROL SO4 2.5/IPRATROPIUM 0.5 INH SOL 3 ML VIAL.NEB. NEB SCH ×6 (09:04→19:26)
[2019-02-01] MEDS: ACETAMINOPHEN 325 MG TABLET (FP) PO PRN (10:51)
[2019-02-01] MEDS: HEPARIN NA (PORCINE) 5,000 UNITS/ML 1ML VIAL SQ SCH ×2 (10:51→22:10)
[2019-02-01] MEDS: RANITIDINE HCL 150 MG TABLET (FP) PO SCH ×2 (10:52→22:10)
[2019-02-01] MEDS: LABETALOL HCL 100 MG TABLET (FP) PO SCH ×2 (10:52→22:10)
[2019-02-01] MEDS: SERTRALINE HCL 50 MG TABLET (FP) PO SCH (10:52)
[2019-02-01] MEDS: NICOTINE 21 MG/24 HOURS TOPICAL PATCH TD SCH (10:53)
[2019-02-01] MEDS: AZITHROMYCIN IVPB 500 MG/250 ML BAG IVPB SCH (10:53)
[2019-02-01] MEDS: FUROSEMIDE 40 MG TABLET (FP) PO SCH (10:53)
--- NOTE | 2019-02-01 12:55 | PN ---
Progress Note (short form) - Note Progress Note: PULMONARY EATING LUNCH HEADACHE VSS/AFEBRILE Constitutional: Yes: Calm Eyes: Yes: Conjunctiva Clear, EOM Intact HENT: Yes: Atraumatic, Normocephalic Neck: Yes: Supple, Trachea Midline Cardiovascular: Yes: Regular Rate and Rhythm Respiratory: Yes: Poor Air Entry ...Clubbing: No Gastrointestinal: Yes: Normal Bowel Sounds, Soft. No: Tenderness Edema: No Neurological: Yes: Alert, Oriented Labs: NOTED Imaging Chest X-ray: Report Reviewed, Image Reviewed (no acute infiltrates) Acute COPD Exacerbation Acute Bronchitis Bronchiectasis HTN Hyperlipidemia ? Migraine/consider neuro eval - IV medrol - inhaled bronchodilators - O2 to keep Spo2 >90% - agree with azithromycin - glucose control while on systemic steroids - DVT prophylaxis Meredith ADAN MD
[2019-02-01] MEDS ORDERED: NAPROXEN 500 MG TABLET (FP) PO ONE (13:16)
[2019-02-01] MEDS ORDERED: SUMATRIPTAN SUCCINATE 6 MG/0.5 ML VIAL SQ ONE (13:44)
[2019-02-01] MEDS ORDERED: METOCLOPRAMIDE HCL INJECTION 10 MG/2 ML VIAL IVPUSH ONE (13:45)
--- NOTE | 2019-02-01 13:58 | CONSULT ---
Consult - text type - Consultation Consultation Note: NEUROLOGY CONSULT GREATLY APPRECIATED: Events reviewed and discussed with RN. This 53 yo LH woman with a 20 yo daughter is currently a resident at [facility]. PMHX includes COPD, nicotine dependence, HLD, HTN, depression, GERD, insomnia. Meds: albuterol, symbicort, mirtazapine 30 mg, sertraline 50 mg, trazodone 100 mg, simvastatin, labetalol 50 mg BID, prednisone. Admitted after SOB, WBC= 19.1 with COPD exacerbation, now on azithromycin and steroids. Reports "hunger headaches" in her 20s and recent worsening of headaches after menopause within last year. Now with approximately one month of increasing daily R hemicranial "pounding" headaches with nausea and kinesiophobia. No relief with use of ibuprofen or tylenol while in facility. FH++ mother and daughter with headaches ROS: sig. for intermittent "tingling" and crampy pains in R fingers and R toes, awakening her from sleep with chronic insomnia. CTof head (reviewed): Mild atrophy with diffuse white matter lucency c/w microvasclopathy MRI of brain (11/21/18) Confirms extensive white matter microvascular changes without discrete CVA. DOUGLAS: BP 120-130/70-80Cor reg. No bruit. Neck supple. Neg Tinel's. Neg SLR. NEURO: Awake, alert, oriented. CNII-CNXII: EOM's full without nystagmus. Full gottlieb. No facial. Motor: No drift. Intermittent myoclonic jerks of hands. Strength normal. Reflexes brisk throughout. Toes downgoing. Coordination: No FTN dystaxia. Sensation: Normal to vibration. Decreased pinprick R I,II, III digit. Romberg - Gait: Normal, including heels, toes, tandem. Impression: Normal Neurological Exam Migraine Headaches, now Chronic Daily Headache Syndrome (CDHS) Worsened by Toxic-Metabolic Encephalopathy (Pneumonia) R CTS +/- Restless Limbs Syndrome (RLS) Suggest: Stop Tylenol and NSAID's Try Sumatriptan 6 mg sq x 1, reglan 10 mg IVP x 1 and O2 therapy at 6L/min with good response Add sumatriptan 50-100 mg prn for acute migraine Continue labetolol 50 BID. Add topiramate 25 mg BID x 1 week then 50 mg BID mg BID Order Fe++, TIBC, Iron, Ferritin (note Iron-deficient anemia may worsen RLS-related complaints) Also consider changing sertraline to Bupropion since SSRI's can worsen RLS and Bupropion aides in smoking cessation.) Thank you very much, Hermann Conti MD
[2019-02-01] MEDS ORDERED: PT OWN MED DRAWER 7, Y5N ONE (15:07)
--- NOTE | 2019-02-01 16:44 | PN ---
Progress Note, Physician Chief Complaint: COPD Exacerbation Migraine History of Present Illness: Previous notes and events reviewed awake and alert NAD complain of headache-Head CT scan performed denies chest pain - Current Medication List Current Medications: Active Medications Acetaminophen (Tylenol -) 650 mg PO Q4H PRN PRN Reason: HEADACHE Last Admin: 02/01/19 10:51 Dose: 650 mg Albuterol Sulfate (Ventolin 0.083% Nebulizer Soln -) 1 amp NEB Q6H PRN PRN Reason: SHORT OF BREATH/WHEEZING Last Admin: 02/01/19 04:20 Dose: 1 amp Albuterol/Ipratropium (Duoneb -) 1 amp NEB RQID [facility] Last Admin: 02/01/19 16:16 Dose: 1 amp Atorvastatin Calcium (Lipitor -) 10 mg PO HS [facility] Last Admin: 01/31/19 21:45 Dose: 10 mg Furosemide (Lasix -) 40 mg PO DAILY [facility] Last Admin: 02/01/19 10:53 Dose: 40 mg Heparin Sodium (Porcine) (Heparin -) 5,000 unit SQ BID [facility] Last Admin: 02/01/19 10:51 Dose: 5,000 unit Azithromycin (Zithromax 500mg Ivpb (Pre-Docked)) 500 mg in 250 mls @ 250 mls/ hr IVPB DAILY [facility] Last Admin: 02/01/19 10:53 Dose: 250 mls/hr Labetalol HCl (Normodyne -) 50 mg PO BID [facility] Last Admin: 02/01/19 10:52 Dose: 50 mg Methylprednisolone Sodium Succinate (Solu-Medrol -) 40 mg IVPUSH Q8H-IV [facility] Last Admin: 02/01/19 10:51 Dose: 40 mg Mirtazapine (Remeron -) 30 mg PO [facility] Nicotine (Nicoderm Patch -) 21 mg TD DAILY [facility] Last Admin: 02/01/19 10:53 Dose: Not Given Ranitidine HCl (Zantac -) 150 mg PO BID [facility] Last Admin: 02/01/19 10:52 Dose: 150 mg Sertraline HCl (Zoloft -) 50 mg PO DAILY [facility] Last Admin: 02/01/19 10:52 Dose: 50 mg Thiamine HCl (Vitamin B1 -) 100 mg PO HS [facility] Last Admin: 01/31/19 21:45 Dose: 100 mg Trazodone HCl (Desyrel -) 100 mg PO HS [facility] Last Admin: 01/31/19 23:17 Dose: 100 mg - Objective Vital Signs: Vital Signs Temperature 98.3 F 02/01/19 13:51 Pulse Rate 76 02/01/19 13:51 Respiratory Rate 18 02/01/19 13:51 Blood Pressure 131/91 02/01/19 13:51 O2 Sat by Pulse Oximetry (%) 91 L 02/01/19 10:00 Constitutional: Yes: No Distress, Calm Eyes: Yes: Conjunctiva Clear HENT: Yes: Atraumatic Cardiovascular: Yes: Regular Rate and Rhythm Respiratory: Yes: Regular, Diminished Gastrointestinal: Yes: Normal Bowel Sounds, Soft Musculoskeletal: Yes: WNL Extremities: Yes: WNL Edema: No Neurological: Yes: Alert, Oriented Psychiatric: Yes: Alert, Oriented Labs: CBC, BMP 02/01/19 06:00 02/01/19 06:00 INR, PTT INR 1.02 (0.83-1.09) 01/30/19 23:50 Problem List - Problems (1) Headache Assessment/Plan: -Neurology on board -Head CT scan unremarkable -Sumatriptan x 1 dose Code(s): R51 - HEADACHE (2) COPD with acute exacerbation Assessment/Plan: -Pulm on board -WBC 19.2 -IV Azithromycin -bronchodilators -Medrol -keep SpO2 >90% -O2 via NC -lasix Code(s): J44.1 - CHRONIC OBSTRUCTIVE PULMONARY DISEASE W (ACUTE) EXACERBATION (3) Hypercholesterolemia Assessment/Plan: -Atorvastatin Code(s): E78.00 - PURE HYPERCHOLESTEROLEMIA, UNSPECIFIED (4) Hypertension Assessment/Plan: -Nadolol -low Na diet Code(s): I10 - ESSENTIAL (PRIMARY) HYPERTENSION Qualifiers: Hypertension type: essential hypertension Qualified Code(s): I10 - Essential (primary) hypertension Assessment/Plan see problem list dvt ppx
[2019-02-01] MEDS ORDERED: SUMAtriptan SUCCINATE 50 MG TABLET PO PRN (17:30)
[2019-02-01] MEDS: THIAMINE HCL 100 MG TABLET (FP) PO SCH (22:10)
[2019-02-01] MEDS: traZODone HCL 100 MG TABLET (FP) PO SCH (22:10)
[2019-02-01] MEDS: ATORVASTATIN CA 10 MG TABLET (FP) PO SCH (22:10)
[2019-02-01] MEDS: MIRTAZAPINE 15 MG TABLET (FP) PO SCH ×2 (22:10→22:15)
[2019-02-01] MEDS: TOPIRAMATE 25 MG TABLET (FP) PO SCH (22:10)
--- NOTE | 2019-02-01 22:54 | CON.OBG ---
Consult Consult Specialty:: SENIOR CLINICAL DATA COORDINATOR Reason for Consultation:: Vaginitis - History of Present Illness Chief Complaint: Vaginal discharge History of Present Illness: 53 year old Para 1 presented from [facility] to the ED with the chief complaint of " Worsening shortness of breath". Patient with multiple episodes of COPD exacerbations, currently undergoing pulmonary rehab. Denied any fevers, chills, or recent travels. Denied exposure to second hand smoke. She is chronic steroid use- says she takes 7mg po daily prednisone for the last 5 months at least. SENIOR CLINICAL DATA COORDINATOR consulted because patient claims that she was diagnosed with bacterial vaginosis and needs treatment. She admits to vaginal discomfort due to abnormal vaginal discharge. She's requesting Metrogel. - History Source History Provided By: Patient Limitations to Obtaining History: No Limitations - Past Medical History Cardio/Vascular: Yes: HTN Pulmonary: Yes: Bronchitis, COPD, O2 Dependent, Pneumonia. No: Pulmonary Embolus, Pulmonary Fibrosis, Sleep Apnea ...LMP: 09/26/16 ...: No ...Para: 1 Psych: Yes: Anxiety, Depression - Past Surgical History Past Surgical History: Yes: Appendectomy - Alcohol/Substance Use Hx Alcohol Use: No - Smoking History Smoking history: Former smoker Have you smoked in the past 12 months: Yes Aproximately how many cigarettes per day: 5 If you are a former smoker, when did you quit?: 06/2018 - Social History Usual Living Arrangement: Group Home ADL: Independent Home Medications - Allergies Allergies/Adverse Reactions: Allergies Allergy/AdvReac Type Severity Reaction Status Date / Time No Known Allergies Allergy Verified 01/30/19 22:06 - Home Medications Home Medications: Ambulatory Orders Acetaminophen [Tylenol] 650 mg PO ASDIR 10/05/18 Albuterol 0.083% Nebulizer Jyoti [Ventolin 0.083% Nebulizer Soln -] 1 neb NEB QID 10/05/18 Albuterol 2.5/Ipratropium 0.5 [Duoneb -] 1 neb NEB Q4H 10/05/18 Budesonide/Formeterol Fumarate [SYMBICORT 160/4.5mcg -] 1 inh PO BID 10/05/18 Mag Hydrox/Al Hydrox/Simeth [Mylanta Oral Suspension -] 1 dose PO ASDIR Melatonin 5 mg PO DAILY 10/05/18 Mirtazapine [Remeron -] 30 mg PO DAILY 10/05/18 95/Iron Fum/Folic/Dha [ + Dha Combo Pack] 1 each PO DAILY 10/05 Sertraline HCl [Zoloft -] 50 mg PO DAILY 10/05/18 Thiamine HCl [B-1] 100 mg PO HS 10/05/18 traZODone HCL [Trazodone HCl] 100 mg PO ASDIR 10/05/18 Albuterol Sulfate Inhaler - [Ventolin HFA Inhaler -] 2 puff IH Q4H PRN 10/08/18 Simvastatin 20 mg PO HS 10/08/18 Aclidinium Avinger [Tudorza Pressair] 400 mcg IH DAILY 10/12/18 Budesonide/Formeterol Fumarate [SYMBICORT 160/4.5mcg -] 2 puff IH BID inhaler 10/12/18 Nicotine Patch [Nicoderm Patch -] 21 mg TD DAILY patch 10/12/18 Ranitidine [Zantac -] 150 mg PO BID tablet 10/12/18 Sodium Chloride Nasal [place] [[place] Nasal [place] -] 2 spray NS BID spray Furosemide [Lasix -] 40 mg PO DAILY #30 tablet MDD 1 11/02/18 Labetalol HCl [Normodyne -] 50 mg PO BID #30 tablet MDD 2 11/05/18 Thiamine HCl [Vitamin B1 -] 100 mg PO HS #30 tablet MDD 1 11/08/18 predniSONE [Deltasone -] 7.5 mg PO DAILY #30 tablet MDD 1 11/08/18 Mirtazapine 30 mg PO DAILY 01/28/19 Family Disease History - Family Disease History Family Disease History: Heart Disease: Father (HTN, ), Mother Review of Systems - Review of Systems Constitutional: denies: Fever Eyes: reports: No Symptoms HENT: reports: No Symptoms Neck: reports: No Symptoms Respiratory: reports: SOB, SOB on Exertion Gastrointestinal: reports: No Symptoms Genitourinary: reports: Other (Vaginal discharge) Breasts: reports: No Symptoms Reported Musculoskeletal: reports: No Symptoms Integumentary: reports: No Symptoms Neurological: reports: No Symptoms Hematology/Lymphatic: reports: No Symptoms Pain Intensity: 0 Physical Exam-SENIOR CLINICAL DATA COORDINATOR Vital Signs: Vital Signs Temperature 99.8 F H 02/01/19 18:00 Pulse Rate 83 02/01/19 18:00 Respiratory Rate 20 02/01/19 18:00 Blood Pressure 118/58 L 02/01/19 18:00 O2 Sat by Pulse Oximetry (%) 91 L 02/01/19 10:00 Constitutional: Yes: Well Nourished Eyes: Yes: Conjunctiva Clear HENT: Yes: Atraumatic Neck: Yes: Supple Cardiovascular: Yes: Regular Rate and Rhythm Respiratory: Yes: Regular Gastrointestinal: Yes: Normal Bowel Sounds Pelvis: No: Tenderness External Genitalia: No: Bleeding, Lesion Vaginal Exam: Yes: Discharge Cervix: Yes: Normal Uterus: Yes: Firm Neurological: Yes: Alert, Oriented ...Motor Strength: WNL Psychiatric: Yes: Alert, Oriented Labs: CBC, BMP 02/01/19 06:00 02/01/19 06:00 Problem List - Problems (1) Vaginal discharge Code(s): N89.8 - OTHER SPECIFIED NONINFLAMMATORY DISORDERS OF VAGINA (2) Bacterial vaginal infection Code(s): N76.0 - ACUTE VAGINITIS; B96.89 - OTH BACTERIAL AGENTS THE CAUSE OF DISEASES CLASSD ELSWHR Assessment/Plan COPD Bacterial vaginosis Metrogel prescribed F/U with SENIOR CLINICAL DATA COORDINATOR as outpatient
[2019-02-01] MEDS ORDERED: metroNIDAZOLE 0.75% VAGINAL GEL 70 GM TUBE VG ONE (22:57)
[2019-02-02] MEDS: methylPREDNISolone NA SUCC 40 MG/1 ML VIAL IVPUSH SCH ×3 (02:37→17:28)
[2019-02-02] MEDS: ALBUTEROL SO4 0.083% IH SOL 2.5 MG/3 ML VIAL.NEB. NEB PRN (04:35)
[2019-02-02] MEDS: ALBUTEROL SO4 2.5/IPRATROPIUM 0.5 INH SOL 3 ML VIAL.NEB. NEB SCH ×4 (08:10→20:30)
[2019-02-02 08:19] LABS: HEMATOCRIT 36.6 % (32.4-45.2); HEMOGLOBIN 11.9 GM/dL (10.7-15.3); MCH 29.6 pg (25.7-33.7); MCHC 32.6 g/dl (32.0-36.0); MEAN CELL VOLUME 90.8 fl (80-96); MEAN PLT VOLUME 8.5 fl (7.5-11.1); PLATELET COUNT 277 K/MM3 (134-434); RBC 4.02 M/mm3 (3.60-5.2); RDW 15.2 % (11.6-15.6)
[2019-02-02 08:50] LABS: ALBUMIN 3.5 g/dl (3.4-5.0); BILIRUBIN,TOTAL 0.1 mg/dL (0.2-1); CALCIUM 9.2 mg/dL (8.5-10.1); CREATININE 0.8 mg/dL (0.55-1.3); POTASSIUM 3.9 mmol/L (3.5-5.1); TOT PROT 7.1 g/dl (6.4-8.2)
[2019-02-02] MEDS: AZITHROMYCIN IVPB 500 MG/250 ML BAG IVPB SCH (10:14)
[2019-02-02] MEDS: TOPIRAMATE 25 MG TABLET (FP) PO SCH ×2 (10:15→22:35)
[2019-02-02] MEDS: LABETALOL HCL 100 MG TABLET (FP) PO SCH ×2 (10:15→22:35)
[2019-02-02] MEDS: HEPARIN NA (PORCINE) 5,000 UNITS/ML 1ML VIAL SQ SCH ×2 (10:15→22:35)
[2019-02-02] MEDS: FUROSEMIDE 40 MG TABLET (FP) PO SCH (10:15)
[2019-02-02] MEDS: RANITIDINE HCL 150 MG TABLET (FP) PO SCH ×2 (10:15→22:35)
[2019-02-02] MEDS: NICOTINE 21 MG/24 HOURS TOPICAL PATCH TD SCH (10:16)
[2019-02-02] MEDS: SERTRALINE HCL 50 MG TABLET (FP) PO SCH (10:21)
[2019-02-02] MEDS: SUMAtriptan SUCCINATE 50 MG TABLET PO PRN (10:27)
[2019-02-02] MEDS ORDERED: PT OWN MED DRAWER 7, Y5N ONE ×3 (11:45→23:05)
--- NOTE | 2019-02-02 12:17 | PN ---
Progress Note, Physician Chief Complaint: COPD exacerbation History of Present Illness: NADc/o SOB, cough, inability to expectorate phlegm - Current Medication List Current Medications: Active Medications Albuterol Sulfate (Ventolin 0.083% Nebulizer Soln -) 1 amp NEB Q6H PRN PRN Reason: SHORT OF BREATH/WHEEZING Last Admin: 02/02/19 04:35 Dose: 1 amp Albuterol/Ipratropium (Duoneb -) 1 amp NEB RQID [facility] Last Admin: 02/02/19 08:10 Dose: 1 amp Atorvastatin Calcium (Lipitor -) 10 mg PO HS [facility] Last Admin: 02/01/19 22:10 Dose: 10 mg Furosemide (Lasix -) 40 mg PO DAILY [facility] Last Admin: 02/02/19 10:15 Dose: 40 mg Heparin Sodium (Porcine) (Heparin -) 5,000 unit SQ BID [facility] Last Admin: 02/02/19 10:15 Dose: 5,000 unit Azithromycin (Zithromax 500mg Ivpb (Pre-Docked)) 500 mg in 250 mls @ 250 mls/ hr IVPB DAILY [facility] Last Admin: 02/02/19 10:14 Dose: 250 mls/hr Labetalol HCl (Normodyne -) 50 mg PO BID [facility] Last Admin: 02/02/19 10:15 Dose: 50 mg Methylprednisolone Sodium Succinate (Solu-Medrol -) 40 mg IVPUSH Q8H-IV [facility] Last Admin: 02/02/19 10:15 Dose: 40 mg Mirtazapine (Remeron -) 30 mg PO [facility] Last Admin: 02/01/19 22:15 Dose: Not Given Nicotine (Nicoderm Patch -) 21 mg TD DAILY [facility] Last Admin: 02/02/19 10:16 Dose: Not Given Ranitidine HCl (Zantac -) 150 mg PO BID [facility] Last Admin: 02/02/19 10:15 Dose: 150 mg Sertraline HCl (Zoloft -) 50 mg PO DAILY [facility] Last Admin: 02/02/19 10:21 Dose: 50 mg Sumatriptan Succinate (Imitrex -) 50 mg PO PRN PRN PRN Reason: HEADACHE Last Admin: 02/02/19 10:27 Dose: 50 mg Thiamine HCl (Vitamin B1 -) 100 mg PO HS [facility] Last Admin: 02/01/19 22:10 Dose: 100 mg Topiramate (Topamax -) 25 mg PO BID [facility] Last Admin: 02/02/19 10:15 Dose: 25 mg Trazodone HCl (Desyrel -) 100 mg PO HS [facility] Last Admin: 02/01/19 22:10 Dose: 100 mg - Objective Vital Signs: Vital Signs Temperature 98.0 F 02/02/19 06:00 Pulse Rate 67 02/02/19 06:00 Respiratory Rate 20 02/02/19 06:00 Blood Pressure 135/78 02/02/19 06:00 O2 Sat by Pulse Oximetry (%) 94 L 02/01/19 21:00 Constitutional: Yes: Well Nourished, No Distress, Calm, Obese Cardiovascular: Yes: Regular Rate and Rhythm Respiratory: Yes: Regular, On Nasal O2, SOB on Exertion Gastrointestinal: Yes: Normal Bowel Sounds, Soft, Abdomen, Obese Genitourinary: Yes: WNL Musculoskeletal: Yes: WNL Extremities: Yes: WNL Edema: No Peripheral Pulses WNL: Yes Neurological: Yes: Alert, Oriented Psychiatric: Yes: Alert, Oriented Labs: CBC, BMP 02/02/19 07:45 02/02/19 07:45 INR, PTT INR 1.02 (0.83-1.09) 01/30/19 23:50 Problem List - Problems (1) Bacterial vaginal infection Assessment/Plan: -Seen by [facility] -On metrogel Code(s): N76.0 - ACUTE VAGINITIS; B96.89 - OTH BACTERIAL AGENTS THE CAUSE OF DISEASES CLASSD ELSWHR Assessment/Plan (1) Headache Assessment/Plan: -Neurology on board -Head CT scan unremarkable Code(s): R51 - HEADACHE (2) COPD with acute exacerbation Assessment/Plan: -Pulm on board -IV Azithromycin -bronchodilators -Medrol tapering dose -Add Robitussin DM -Cepacol lozenges -keep SpO2 >90% -O2 via NC -lasix Code(s): J44.1 - CHRONIC OBSTRUCTIVE PULMONARY DISEASE W (ACUTE) EXACERBATION (3) Hypercholesterolemia Assessment/Plan: -Atorvastatin Code(s): E78.00 - PURE HYPERCHOLESTEROLEMIA, UNSPECIFIED (4) Hypertension Assessment/Plan: -Nadolol -low Na diet Code(s): I10 - ESSENTIAL (PRIMARY) HYPERTENSION Qualifiers: Hypertension type: essential hypertension Qualified Code(s): I10 - Essential (primary) hypertension
--- NOTE | 2019-02-02 12:33 | PN ---
Progress Note (short form) - Note Progress Note: PULMONARY Still with shortness of breath, nonproductive cough and wheezing. Vital Signs Period Temp Pulse Resp BP Sys/Weiner Pulse Ox Last 24 Hr 98.0 F-99.8 F 67-87 18-20 118-150/58-91 94 Gen: tachypneic with speaking Heart: RRR Lung: poor air movement Abd: soft, nontender Ext: no edema CBC, BMP 02/02/19 07:45 02/02/19 07:45 Active Medications Albuterol Sulfate (Ventolin 0.083% Nebulizer Soln -) 1 amp NEB Q6H PRN PRN Reason: SHORT OF BREATH/WHEEZING Last Admin: 02/02/19 04:35 Dose: 1 amp Albuterol/Ipratropium (Duoneb -) 1 amp NEB RQID [facility] Last Admin: 02/02/19 12:25 Dose: 1 amp Atorvastatin Calcium (Lipitor -) 10 mg PO HS [facility] Last Admin: 02/01/19 22:10 Dose: 10 mg Furosemide (Lasix -) 40 mg PO DAILY [facility] Last Admin: 02/02/19 10:15 Dose: 40 mg Heparin Sodium (Porcine) (Heparin -) 5,000 unit SQ BID [facility] Last Admin: 02/02/19 10:15 Dose: 5,000 unit Azithromycin (Zithromax 500mg Ivpb (Pre-Docked)) 500 mg in 250 mls @ 250 mls/ hr IVPB DAILY [facility] Last Admin: 02/02/19 10:14 Dose: 250 mls/hr Labetalol HCl (Normodyne -) 50 mg PO BID [facility] Last Admin: 02/02/19 10:15 Dose: 50 mg Methylprednisolone Sodium Succinate (Solu-Medrol -) 40 mg IVPUSH Q8H-IV [facility] Last Admin: 02/02/19 10:15 Dose: 40 mg Mirtazapine (Remeron -) 30 mg PO HS [facility] Last Admin: 02/01/19 22:15 Dose: Not Given Nicotine (Nicoderm Patch -) 21 mg TD DAILY [facility] Last Admin: 02/02/19 10:16 Dose: Not Given Ranitidine HCl (Zantac -) 150 mg PO BID [facility] Last Admin: 02/02/19 10:15 Dose: 150 mg Sertraline HCl (Zoloft -) 50 mg PO DAILY [facility] Last Admin: 02/02/19 10:21 Dose: 50 mg Sumatriptan Succinate (Imitrex -) 50 mg PO PRN PRN PRN Reason: HEADACHE Last Admin: 02/02/19 10:27 Dose: 50 mg Thiamine HCl (Vitamin B1 -) 100 mg PO [facility] Last Admin: 02/01/19 22:10 Dose: 100 mg Topiramate (Topamax -) 25 mg PO BID [facility] Last Admin: 02/02/19 10:15 Dose: 25 mg Trazodone HCl (Desyrel -) 100 mg PO [facility] Last Admin: 02/01/19 22:10 Dose: 100 mg A/P Acute COPD Exacerbation Acute Bronchitis Bronchiectasis HTN Hyperlipidemia - continue medrol at current dose - inhaled bronchodilators - O2 to keep Spo2 >90% - azithromycin - DVT prophylaxis Problem List - Problems (1) COPD with acute exacerbation Code(s): J44.1 - CHRONIC OBSTRUCTIVE PULMONARY DISEASE W (ACUTE) EXACERBATION (2) Acute bronchitis Code(s): J20.9 - ACUTE BRONCHITIS, UNSPECIFIED (3) Bronchiectasis Code(s): J47.9 - BRONCHIECTASIS, UNCOMPLICATED
[2019-02-02] MEDS ORDERED: guaiFENesin/D-METHORPHAN HB 1 EACH TAB.ER.12H PO SCH (12:45)
[2019-02-02] MEDS: guaiFENesin/D-METHORPHAN HB 10 ML UNIT-DOSE CUPS PO PRN ×2 (17:28→23:08)
[2019-02-02] MEDS: BENZOCAINE/MENTH/CETYLPYRD CL 1 EACH LOZENGE MM PRN ×2 (17:29→23:08)
[2019-02-02] MEDS: THIAMINE HCL 100 MG TABLET (FP) PO SCH (22:36)
[2019-02-02] MEDS: traZODone HCL 100 MG TABLET (FP) PO SCH (22:36)
[2019-02-02] MEDS: ATORVASTATIN CA 10 MG TABLET (FP) PO SCH (22:36)
[2019-02-02] MEDS: MIRTAZAPINE 15 MG TABLET (FP) PO SCH (22:42)
[2019-02-03] MEDS: methylPREDNISolone NA SUCC 40 MG/1 ML VIAL IVPUSH SCH ×3 (02:11→17:52)
[2019-02-03] MEDS ORDERED: PT OWN MED DRAWER 7, Y5N ONE (07:21)
[2019-02-03] MEDS: ALBUTEROL SO4 2.5/IPRATROPIUM 0.5 INH SOL 3 ML VIAL.NEB. NEB SCH ×4 (07:57→21:30)
[2019-02-03 08:08] LABS: SERUM IRON SATURATION 30 % (15-55); TOTAL IRON BINDING CAPACITY 270 ug/dL (250-450); UIBC 190 ug/dL (131-425)
[2019-02-03] MEDS: SERTRALINE HCL 50 MG TABLET (FP) PO SCH (11:36)
[2019-02-03] MEDS: LABETALOL HCL 100 MG TABLET (FP) PO SCH ×2 (11:37→22:07)
[2019-02-03] MEDS: RANITIDINE HCL 150 MG TABLET (FP) PO SCH ×2 (11:37→22:08)
[2019-02-03] MEDS: HEPARIN NA (PORCINE) 5,000 UNITS/ML 1ML VIAL SQ SCH ×2 (11:38→22:09)
[2019-02-03] MEDS: FUROSEMIDE 40 MG TABLET (FP) PO SCH (11:38)
[2019-02-03] MEDS: NICOTINE 21 MG/24 HOURS TOPICAL PATCH TD SCH (11:39)
[2019-02-03] MEDS: TOPIRAMATE 25 MG TABLET (FP) PO SCH ×2 (11:39→22:08)
[2019-02-03] MEDS: guaiFENesin/D-METHORPHAN HB 10 ML UNIT-DOSE CUPS PO PRN ×2 (11:40→22:09)
--- NOTE | 2019-02-03 12:01 | PN ---
Progress Note (short form) - Note Progress Note: PULMONARY Still with shortness of breath, nonproductive cough and wheezing. Vital Signs Period Temp Pulse Resp BP Sys/Weiner Pulse Ox Last 24 Hr 98 F-98.6 F 68-85 20-20 111-137/58-75 98 Gen: tachypneic with speaking Heart: RRR Lung: poor air movement Abd: soft, nontender Ext: no edema CBC, BMP 02/02/19 07:45 02/02/19 07:45 Active Medications Albuterol Sulfate (Ventolin 0.083% Nebulizer Soln -) 1 amp NEB Q6H PRN PRN Reason: SHORT OF BREATH/WHEEZING Last Admin: 02/02/19 04:35 Dose: 1 amp Albuterol/Ipratropium (Duoneb -) 1 amp NEB RQID [facility] Last Admin: 02/03/19 11:19 Dose: 1 amp Atorvastatin Calcium (Lipitor -) 10 mg PO HS [facility] Last Admin: 02/02/19 22:36 Dose: 10 mg Benzocaine/Menthol (Cepacol Lozenge -) 1 each MM Q4H PRN PRN Reason: SORE THROAT Last Admin: 02/02/19 23:08 Dose: 1 each Furosemide (Lasix -) 40 mg PO DAILY [facility] Last Admin: 02/03/19 11:38 Dose: 40 mg Guaifenesin (Robitussin Dm -) 10 ml PO Q4H PRN PRN Reason: COUGH Last Admin: 02/03/19 11:40 Dose: 10 ml Heparin Sodium (Porcine) (Heparin -) 5,000 unit SQ BID [facility] Last Admin: 02/03/19 11:38 Dose: 5,000 unit Azithromycin (Zithromax 500mg Ivpb (Pre-Docked)) 500 mg in 250 mls @ 250 mls/ hr IVPB DAILY [facility] Last Admin: 02/02/19 10:14 Dose: 250 mls/hr Labetalol HCl (Normodyne -) 50 mg PO BID [facility] Last Admin: 02/03/19 11:37 Dose: 50 mg Methylprednisolone Sodium Succinate (Solu-Medrol -) 40 mg IVPUSH Q8H-IV [facility] Last Admin: 02/03/19 11:39 Dose: 40 mg Mirtazapine (Remeron -) 30 mg PO HS [facility] Last Admin: 02/02/19 22:42 Dose: Not Given Nicotine (Nicoderm Patch -) 21 mg TD DAILY [facility] Last Admin: 02/03/19 11:39 Dose: Not Given Ranitidine HCl (Zantac -) 150 mg PO BID [facility] Last Admin: 02/03/19 11:37 Dose: 150 mg Sertraline HCl (Zoloft -) 50 mg PO DAILY [facility] Last Admin: 02/03/19 11:36 Dose: 50 mg Sumatriptan Succinate (Imitrex -) 50 mg PO PRN PRN PRN Reason: HEADACHE Last Admin: 02/02/19 10:27 Dose: 50 mg Thiamine HCl (Vitamin B1 -) [address] [facility] Last Admin: 02/02/19 22:36 Dose: 100 mg Topiramate (Topamax -) 25 mg PO BID [facility] Last Admin: 02/03/19 11:39 Dose: 25 mg Trazodone HCl (Desyrel -) 100 mg PO [facility] Last Admin: 02/02/19 22:36 Dose: 100 mg A/P Acute COPD Exacerbation Acute Bronchitis Bronchiectasis HTN Hyperlipidemia - continue medrol at current dose - inhaled bronchodilators - O2 to keep Spo2 >90% - azithromycin - DVT prophylaxis Problem List - Problems (1) COPD with acute exacerbation Code(s): J44.1 - CHRONIC OBSTRUCTIVE PULMONARY DISEASE W (ACUTE) EXACERBATION (2) Acute bronchitis Code(s): J20.9 - ACUTE BRONCHITIS, UNSPECIFIED (3) Bronchiectasis Code(s): J47.9 - BRONCHIECTASIS, UNCOMPLICATED
[2019-02-03] MEDS: AZITHROMYCIN IVPB 500 MG/250 ML BAG IVPB SCH (12:20)
[2019-02-03] MEDS: BENZOCAINE/MENTH/CETYLPYRD CL 1 EACH LOZENGE MM PRN (12:20)
[2019-02-03] MEDS: SUMAtriptan SUCCINATE 50 MG TABLET PO PRN (13:02)
[2019-02-03] MEDS ORDERED: MAG HYDROX/AL HYDROX/SIMETH 30 ML UNIT-DOSE CUP PO PRN (15:16)
--- NOTE | 2019-02-03 19:34 | PN ---
Progress Note, Physician Chief Complaint: COPD exacerbation History of Present Illness: NAD c/o SOB, cough, inability to expectorate phlegm, overall improving - Current Medication List Current Medications: Active Medications Al Hydroxide/Mg Hydroxide (Mylanta Oral Suspension -) 15 ml PO Q6H PRN PRN Reason: INDIGESTION/DYSPEPSIA Last Admin: 02/03/19 15:30 Dose: 15 ml Albuterol Sulfate (Ventolin 0.083% Nebulizer Soln -) 1 amp NEB Q6H PRN PRN Reason: SHORT OF BREATH/WHEEZING Last Admin: 02/02/19 04:35 Dose: 1 amp Albuterol/Ipratropium (Duoneb -) 1 amp NEB RQID [facility] Last Admin: 02/03/19 15:34 Dose: 1 amp Atorvastatin Calcium (Lipitor -) 10 mg PO HS [facility] Last Admin: 02/02/19 22:36 Dose: 10 mg Benzocaine/Menthol (Cepacol Lozenge -) 1 each MM Q4H PRN PRN Reason: SORE THROAT Last Admin: 02/03/19 12:20 Dose: 1 each Furosemide (Lasix -) 40 mg PO DAILY [facility] Last Admin: 02/03/19 11:38 Dose: 40 mg Guaifenesin (Robitussin Dm -) 10 ml PO Q4H PRN PRN Reason: COUGH Last Admin: 02/03/19 11:40 Dose: 10 ml Heparin Sodium (Porcine) (Heparin -) 5,000 unit SQ BID [facility] Last Admin: 02/03/19 11:38 Dose: 5,000 unit Azithromycin (Zithromax 500mg Ivpb (Pre-Docked)) 500 mg in 250 mls @ 250 mls/ hr IVPB DAILY [facility] Last Admin: 02/03/19 12:20 Dose: 250 mls/hr Labetalol HCl (Normodyne -) 50 mg PO BID [facility] Last Admin: 02/03/19 11:37 Dose: 50 mg Methylprednisolone Sodium Succinate (Solu-Medrol -) 40 mg IVPUSH Q8H-IV [facility] Last Admin: 02/03/19 17:52 Dose: 40 mg Mirtazapine (Remeron -) 30 mg PO HS [facility] Last Admin: 02/02/19 22:42 Dose: Not Given Nicotine (Nicoderm Patch -) 21 mg TD DAILY [facility] Last Admin: 02/03/19 11:39 Dose: Not Given Ranitidine HCl (Zantac -) 150 mg PO BID [facility] Last Admin: 02/03/19 11:37 Dose: 150 mg Sertraline HCl (Zoloft -) 50 mg PO DAILY [facility] Last Admin: 02/03/19 11:36 Dose: 50 mg Sumatriptan Succinate (Imitrex -) 50 mg PO PRN PRN PRN Reason: HEADACHE Last Admin: 02/03/19 13:02 Dose: 50 mg Thiamine HCl (Vitamin B1 -) 100 mg PO [facility] Last Admin: 02/02/19 22:36 Dose: 100 mg Topiramate (Topamax -) 25 mg PO BID [facility] Last Admin: 02/03/19 11:39 Dose: 25 mg Trazodone HCl (Desyrel -) 100 mg PO [facility] Last Admin: 02/02/19 22:36 Dose: 100 mg - Objective Vital Signs: Vital Signs Temperature 98.1 F 02/03/19 18:46 Pulse Rate 71 02/03/19 18:46 Respiratory Rate 20 02/03/19 18:46 Blood Pressure 127/76 02/03/19 18:46 O2 Sat by Pulse Oximetry (%) 98 02/03/19 09:00 Constitutional: Yes: Well Nourished, No Distress, Calm, Obese Cardiovascular: Yes: Regular Rate and Rhythm Respiratory: Yes: Regular Gastrointestinal: Yes: Normal Bowel Sounds, Soft, Abdomen, Obese Genitourinary: Yes: WNL Musculoskeletal: Yes: WNL Extremities: Yes: WNL Edema: No Peripheral Pulses WNL: Yes Neurological: Yes: Alert, Oriented Psychiatric: Yes: Alert, Oriented Labs: CBC, BMP 02/02/19 07:45 02/02/19 07:45 INR, PTT INR 1.02 (0.83-1.09) 01/30/19 23:50 Problem List - Problems (1) Bacterial vaginal infection Assessment/Plan: -Seen by COOKIE MIXER HELPER -On metrogel Code(s): N76.0 - ACUTE VAGINITIS; B96.89 - OTH BACTERIAL AGENTS THE CAUSE OF DISEASES CLASSD [id number] Assessment/Plan (1) Headache Assessment/Plan: -Neurology on board -Head CT scan unremarkable Code(s): R51 - HEADACHE (2) COPD with acute exacerbation Assessment/Plan: -Pulm on board -IV Azithromycin -bronchodilators -Medrol tapering dose -Add Robitussin DM -Cepacol lozenges -keep SpO2 >90% -O2 via [place] -lasix Code(s): J44.1 - CHRONIC OBSTRUCTIVE PULMONARY DISEASE W (ACUTE) EXACERBATION (3) Hypercholesterolemia Assessment/Plan: -Atorvastatin Code(s): E78.00 - PURE HYPERCHOLESTEROLEMIA, UNSPECIFIED (4) Hypertension Assessment/Plan: -Nadolol -low Na diet Code(s): I10 - ESSENTIAL (PRIMARY) HYPERTENSION Qualifiers: Hypertension type: essential hypertension Qualified Code(s): I10 - Essential (primary) hypertension
[2019-02-03] MEDS: MIRTAZAPINE 15 MG TABLET (FP) PO SCH (22:07)
[2019-02-03] MEDS: ATORVASTATIN CA 10 MG TABLET (FP) PO SCH (22:08)
[2019-02-03] MEDS: traZODone HCL 100 MG TABLET (FP) PO SCH (22:08)
[2019-02-03] MEDS: THIAMINE HCL 100 MG TABLET (FP) PO SCH (22:08)
[2019-02-04] MEDS: methylPREDNISolone NA SUCC 40 MG/1 ML VIAL IVPUSH SCH ×4 (01:48→21:29)
[2019-02-04] MEDS: ALBUTEROL SO4 2.5/IPRATROPIUM 0.5 INH SOL 3 ML VIAL.NEB. NEB SCH ×4 (07:50→20:50)
[2019-02-04] MEDS: TOPIRAMATE 25 MG TABLET (FP) PO SCH ×2 (09:47→21:29)
[2019-02-04] MEDS: AZITHROMYCIN IVPB 500 MG/250 ML BAG IVPB SCH (09:48)
[2019-02-04] MEDS: FUROSEMIDE 40 MG TABLET (FP) PO SCH (09:48)
[2019-02-04] MEDS: HEPARIN NA (PORCINE) 5,000 UNITS/ML 1ML VIAL SQ SCH ×2 (09:48→21:29)
[2019-02-04] MEDS: guaiFENesin/D-METHORPHAN HB 10 ML UNIT-DOSE CUPS PO PRN (09:48)
[2019-02-04] MEDS: LABETALOL HCL 100 MG TABLET (FP) PO SCH ×2 (09:48→21:30)
[2019-02-04] MEDS: RANITIDINE HCL 150 MG TABLET (FP) PO SCH ×2 (09:48→21:30)
[2019-02-04] MEDS: NICOTINE 21 MG/24 HOURS TOPICAL PATCH TD SCH (09:51)
[2019-02-04] MEDS ORDERED: PT OWN MED DRAWER 7, Y5N ONE (09:57)
[2019-02-04] MEDS: SUMAtriptan SUCCINATE 50 MG TABLET PO PRN (09:59)
[2019-02-04] MEDS: SERTRALINE HCL 50 MG TABLET (FP) PO SCH (09:59)
--- NOTE | 2019-02-04 10:07 | PN ---
Progress Note, Physician Chief Complaint: COPD Exacerbation Migraine Bacterial Vaginosis History of Present Illness: Previous notes and events reviewed awake and alert NAD denies chest pain patient sts breathing is not improving, continue to complain of cough but unable to expectorate sputum - Current Medication List Current Medications: Active Medications Al Hydroxide/Mg Hydroxide (Mylanta Oral Suspension -) 15 ml PO Q6H PRN PRN Reason: INDIGESTION/DYSPEPSIA Last Admin: 02/03/19 15:30 Dose: 15 ml Albuterol Sulfate (Ventolin 0.083% Nebulizer Soln -) 1 amp NEB Q6H PRN PRN Reason: SHORT OF BREATH/WHEEZING Last Admin: 02/02/19 04:35 Dose: 1 amp Albuterol/Ipratropium (Duoneb -) 1 amp NEB RQID [facility] Last Admin: 02/04/19 07:50 Dose: 1 amp Atorvastatin Calcium (Lipitor -) 10 mg PO HS [facility] Last Admin: 02/03/19 22:08 Dose: 10 mg Benzocaine/Menthol (Cepacol Lozenge -) 1 each MM Q4H PRN PRN Reason: SORE THROAT Last Admin: 02/03/19 12:20 Dose: 1 each Furosemide (Lasix -) 40 mg PO DAILY [facility] Last Admin: 02/04/19 09:48 Dose: 40 mg Guaifenesin (Robitussin Dm -) 10 ml PO Q4H PRN PRN Reason: COUGH Last Admin: 02/04/19 09:48 Dose: 10 ml Heparin Sodium (Porcine) (Heparin -) 5,000 unit SQ BID [facility] Last Admin: 02/04/19 09:48 Dose: 5,000 unit Azithromycin (Zithromax 500mg Ivpb (Pre-Docked)) 500 mg in 250 mls @ 250 mls/ hr IVPB DAILY [facility] Last Admin: 02/04/19 09:48 Dose: 250 mls/hr Labetalol HCl (Normodyne -) 50 mg PO BID [facility] Last Admin: 02/04/19 09:48 Dose: 50 mg Methylprednisolone Sodium Succinate (Solu-Medrol -) 40 mg IVPUSH Q8H-IV [facility] Last Admin: 02/04/19 09:48 Dose: 40 mg Mirtazapine (Remeron -) 30 mg PO HS [facility] Last Admin: 02/03/19 22:07 Dose: Not Given Nicotine (Nicoderm Patch -) 21 mg TD DAILY [facility] Last Admin: 02/04/19 09:51 Dose: Not Given Ranitidine HCl (Zantac -) 150 mg PO BID [facility] Last Admin: 02/04/19 09:48 Dose: 150 mg Sertraline HCl (Zoloft -) 50 mg PO DAILY [facility] Last Admin: 02/04/19 09:59 Dose: 50 mg Sumatriptan Succinate (Imitrex -) 50 mg PO PRN PRN PRN Reason: HEADACHE Last Admin: 02/04/19 09:59 Dose: 50 mg Thiamine HCl (Vitamin B1 -) 100 mg PO [facility] Last Admin: 02/03/19 22:08 Dose: 100 mg Topiramate (Topamax -) 25 mg PO BID [facility] Last Admin: 02/04/19 09:47 Dose: 25 mg Trazodone HCl (Desyrel -) 100 mg PO [facility] Last Admin: 02/03/19 22:08 Dose: 100 mg - Objective Vital Signs: Vital Signs Temperature 98.1 F 02/03/19 20:45 Pulse Rate 78 02/03/19 20:45 Respiratory Rate 20 02/03/19 21:00 Blood Pressure 120/80 02/03/19 20:45 O2 Sat by Pulse Oximetry (%) 100 02/03/19 21:00 Constitutional: Yes: No Distress, Calm Eyes: Yes: Conjunctiva Clear HENT: Yes: Atraumatic Cardiovascular: Yes: Regular Rate and Rhythm Respiratory: Yes: Regular, Diminished, On Nasal O2 Gastrointestinal: Yes: Normal Bowel Sounds, Soft, Abdomen, Obese Musculoskeletal: Yes: Muscle Weakness Extremities: Yes: WNL Edema: No Neurological: Yes: Alert, Oriented Psychiatric: Yes: Alert, Oriented Labs: CBC, BMP 02/02/19 07:45 02/02/19 07:45 INR, PTT INR 1.02 (0.83-1.09) 01/30/19 23:50 Microbiology 01/31/19 17:08 Urine - Urine Clean Catch Urine Culture - Final Problem List - Problems (1) Headache Assessment/Plan: -Neurology on board -Head CT scan unremarkable -Topamax Code(s): R51 - HEADACHE (2) COPD with acute exacerbation Assessment/Plan: -Pulm on board -WBC 19.2 -IV Azithromycin -bronchodilators -Medrol -Cepacol -Robitussin -keep SpO2 >90% -O2 via [place] -lasix Code(s): J44.1 - CHRONIC OBSTRUCTIVE PULMONARY DISEASE W (ACUTE) EXACERBATION (3) Hypercholesterolemia Assessment/Plan: -Atorvastatin Code(s): E78.00 - PURE HYPERCHOLESTEROLEMIA, UNSPECIFIED (4) Hypertension Assessment/Plan: -Nadolol -low Na diet Code(s): I10 - ESSENTIAL (PRIMARY) HYPERTENSION Qualifiers: Hypertension type: essential hypertension Qualified Code(s): I10 - Essential (primary) hypertension (5) Vaginal discharge Assessment/Plan: -HEAVY EQUIPMENT SERVICE TECHNICIAN on board -follow up with HEAVY EQUIPMENT SERVICE TECHNICIAN as outpatient Code(s): N89.8 - OTHER SPECIFIED NONINFLAMMATORY DISORDERS OF VAGINA Assessment/Plan see problem list dvt ppx
--- NOTE | 2019-02-04 12:14 | PN ---
Progress Note (short form) - Note Progress Note: Still with shortness of breath, nonproductive cough, and wheezing. Reports significant nasal congestion and post nasal drip. Intake & Output 02/01/19 02/02/19 02/03/19 02/04/19 23:59 23:59 23:59 23:59 Intake Total 669 346 4734 530 Balance 091 322 0468 530 Weight 233 lb 3.2 oz 232 lb 9.6 oz 233 lb 11.2 oz Last Vital Signs Temp Pulse Resp BP Pulse Ox 98.2 F 78 20 127/53 L 97 02/04/19 10:28 02/04/19 10:28 02/04/19 10:28 02/04/19 10:28 02/04/19 09:00 Active Medications Al Hydroxide/Mg Hydroxide (Mylanta Oral Suspension -) 15 ml PO Q6H PRN PRN Reason: INDIGESTION/DYSPEPSIA Last Admin: 02/03/19 15:30 Dose: 15 ml Albuterol Sulfate (Ventolin 0.083% Nebulizer Soln -) 1 amp NEB Q6H PRN PRN Reason: SHORT OF BREATH/WHEEZING Last Admin: 02/02/19 04:35 Dose: 1 amp Albuterol/Ipratropium (Duoneb -) 1 amp NEB RQID [facility] Last Admin: 02/04/19 07:50 Dose: 1 amp Atorvastatin Calcium (Lipitor -) 10 mg PO HS [facility] Last Admin: 02/03/19 22:08 Dose: 10 mg Benzocaine/Menthol (Cepacol Lozenge -) 1 each MM Q4H PRN PRN Reason: SORE THROAT Last Admin: 02/03/19 12:20 Dose: 1 each Furosemide (Lasix -) 40 mg PO DAILY [facility] Last Admin: 02/04/19 09:48 Dose: 40 mg Guaifenesin (Robitussin Dm -) 10 ml PO Q4H PRN PRN Reason: COUGH Last Admin: 02/04/19 09:48 Dose: 10 ml Heparin Sodium (Porcine) (Heparin -) 5,000 unit SQ BID [facility] Last Admin: 02/04/19 09:48 Dose: 5,000 unit Azithromycin (Zithromax 500mg Ivpb (Pre-Docked)) 500 mg in 250 mls @ 250 mls/ hr IVPB DAILY [facility] Last Admin: 02/04/19 09:48 Dose: 250 mls/hr Labetalol HCl (Normodyne -) 50 mg PO BID [facility] Last Admin: 02/04/19 09:48 Dose: 50 mg Methylprednisolone Sodium Succinate (Solu-Medrol -) 40 mg IVPUSH Q8H-IV [facility] Last Admin: 02/04/19 09:48 Dose: 40 mg Mirtazapine (Remeron -) 30 mg PO HS [facility] Last Admin: 02/03/19 22:07 Dose: Not Given Nicotine (Nicoderm Patch -) 21 mg TD DAILY [facility] Last Admin: 02/04/19 09:51 Dose: Not Given Ranitidine HCl (Zantac -) 150 mg PO BID [facility] Last Admin: 02/04/19 09:48 Dose: 150 mg Sertraline HCl (Zoloft -) 50 mg PO DAILY [facility] Last Admin: 02/04/19 09:59 Dose: 50 mg Sumatriptan Succinate (Imitrex -) 50 mg PO PRN PRN PRN Reason: HEADACHE Last Admin: 02/04/19 09:59 Dose: 50 mg Thiamine HCl (Vitamin B1 -) 100 mg PO [facility] Last Admin: 02/03/19 22:08 Dose: 100 mg Topiramate (Topamax -) 25 mg PO BID [facility] Last Admin: 02/04/19 09:47 Dose: 25 mg Trazodone HCl (Desyrel -) 100 mg PO [facility] Last Admin: 02/03/19 22:08 Dose: 100 mg Gen: Mildly tachypneic with speaking Heart: RRR Lung: Scattered rhonchi, no wheezing Abd: soft, nontender Ext: no edema Problem List - Problems (1) COPD with acute exacerbation Code(s): J44.1 - CHRONIC OBSTRUCTIVE PULMONARY DISEASE W (ACUTE) EXACERBATION (2) Acute bronchitis Code(s): J20.9 - ACUTE BRONCHITIS, UNSPECIFIED (3) Bronchiectasis Code(s): J47.9 - BRONCHIECTASIS, UNCOMPLICATED A/P Acute COPD Exacerbation Acute Bronchitis Bronchiectasis HTN Hyperlipidemia R/O OSAS Post nasal drip - Fluticasone nasal spray - Wean medrol - inhaled bronchodilators - O2 to keep Spo2 >90% - azithromycin - DVT prophylaxis - Sleep workup after D/C Dr Carrera
[2019-02-04] MEDS: FLUTICASONE PROP 0.05% 16 GM NASAL SPRAY NS SCH (13:52)
[2019-02-04] MEDS: BENZOCAINE/MENTH/CETYLPYRD CL 1 EACH LOZENGE MM PRN (13:55)
[2019-02-04] MEDS: MIRTAZAPINE 15 MG TABLET (FP) PO SCH (21:28)
[2019-02-04] MEDS: ATORVASTATIN CA 10 MG TABLET (FP) PO SCH (21:29)
[2019-02-04] MEDS: THIAMINE HCL 100 MG TABLET (FP) PO SCH (21:29)
[2019-02-04] MEDS: traZODone HCL 100 MG TABLET (FP) PO SCH (21:29)
[2019-02-05 06:39] LABS: HEMATOCRIT 39.4 % (32.4-45.2); HEMOGLOBIN 12.8 GM/dL (10.7-15.3); MCH 29.4 pg (25.7-33.7); MCHC 32.4 g/dl (32.0-36.0); MEAN CELL VOLUME 90.5 fl (80-96); MEAN PLT VOLUME 8.3 fl (7.5-11.1); PLATELET COUNT 297 K/MM3 (134-434); RBC 4.35 M/mm3 (3.60-5.2); RDW 15.4 % (11.6-15.6); WHITE BLOOD COUNT 26.6 K/mm3 (4.0-10.0)
[2019-02-05 07:02] LABS: ALBUMIN 3.3 g/dl (3.4-5.0); BILIRUBIN,TOTAL 0.2 mg/dL (0.2-1); CALCIUM 9.2 mg/dL (8.5-10.1); CREATININE 0.7 mg/dL (0.55-1.3); POTASSIUM 4.1 mmol/L (3.5-5.1)
[2019-02-05] MEDS: AZITHROMYCIN IVPB 500 MG/250 ML BAG IVPB SCH (09:59)
[2019-02-05] MEDS: methylPREDNISolone NA SUCC 40 MG/1 ML VIAL IVPUSH SCH ×2 (10:02→21:37)
[2019-02-05] MEDS: FLUTICASONE PROP 0.05% 16 GM NASAL SPRAY NS SCH (10:02)
[2019-02-05] MEDS: FUROSEMIDE 40 MG TABLET (FP) PO SCH (10:02)
[2019-02-05] MEDS: TOPIRAMATE 25 MG TABLET (FP) PO SCH ×2 (10:02→21:37)
[2019-02-05] MEDS: RANITIDINE HCL 150 MG TABLET (FP) PO SCH ×2 (10:02→21:38)
[2019-02-05] MEDS: HEPARIN NA (PORCINE) 5,000 UNITS/ML 1ML VIAL SQ SCH ×2 (10:02→21:38)
[2019-02-05] MEDS: SERTRALINE HCL 50 MG TABLET (FP) PO SCH (10:02)
[2019-02-05] MEDS: NICOTINE 21 MG/24 HOURS TOPICAL PATCH TD SCH (10:03)
[2019-02-05] MEDS ORDERED: PT OWN MED DRAWER 7, Y5N ONE (10:35)
[2019-02-05] MEDS: LABETALOL HCL 100 MG TABLET (FP) PO SCH ×2 (10:37→21:38)
--- NOTE | 2019-02-05 12:24 | PN ---
Progress Note (short form) - Note Progress Note: Cough and nasal passages seem a little better today. Less cough. Less shortness of breath and wheezing. Intake & Output 02/02/19 02/03/19 02/04/19 02/05/19 23:59 23:59 23:59 23:59 Intake Total 850 2250 1380 Balance 850 2250 1380 Weight 233 lb 3.2 oz 232 lb 9.6 oz 233 lb 11.2 oz 232 lb 14.4 oz Last Vital Signs Temp Pulse Resp BP Pulse Ox 98.0 F 79 20 119/69 99 02/05/19 10:06 02/05/19 10:06 02/05/19 10:06 02/05/19 10:06 02/04/19 21:00 Active Medications Al Hydroxide/Mg Hydroxide (Mylanta Oral Suspension -) 15 ml PO Q6H PRN PRN Reason: INDIGESTION/DYSPEPSIA Last Admin: 02/03/19 15:30 Dose: 15 ml Albuterol Sulfate (Ventolin 0.083% Nebulizer Soln -) 1 amp NEB Q6H PRN PRN Reason: SHORT OF BREATH/WHEEZING Last Admin: 02/02/19 04:35 Dose: 1 amp Atorvastatin Calcium (Lipitor -) 10 mg PO HS [facility] Last Admin: 02/04/19 21:29 Dose: 10 mg Benzocaine/Menthol (Cepacol Lozenge -) 1 each MM Q4H PRN PRN Reason: SORE THROAT Last Admin: 02/04/19 13:55 Dose: 1 each Fluticasone Propionate (Flonase -) 2 spray NS DAILY [facility] Last Admin: 02/05/19 10:02 Dose: 2 spray Furosemide (Lasix -) 40 mg PO DAILY [facility] Last Admin: 02/05/19 10:02 Dose: 40 mg Guaifenesin (Robitussin Dm -) 10 ml PO Q4H PRN PRN Reason: COUGH Last Admin: 02/04/19 09:48 Dose: 10 ml Heparin Sodium (Porcine) (Heparin -) 5,000 unit SQ BID [facility] Last Admin: 02/05/19 10:02 Dose: 5,000 unit Azithromycin (Zithromax 500mg Ivpb (Pre-Docked)) 500 mg in 250 mls @ 250 mls/ hr IVPB DAILY [facility] Last Admin: 02/05/19 09:59 Dose: 250 mls/hr Labetalol HCl (Normodyne -) 50 mg PO BID [facility] Last Admin: 02/05/19 10:37 Dose: 50 mg Methylprednisolone Sodium Succinate (Solu-Medrol -) 40 mg IVPUSH BID [facility] Last Admin: 02/05/19 10:02 Dose: 40 mg Mirtazapine (Remeron -) 30 mg PO [facility] Last Admin: 02/04/19 21:28 Dose: Not Given Nicotine (Nicoderm Patch -) 21 mg TD DAILY [facility] Last Admin: 02/05/19 10:03 Dose: Not Given Ranitidine HCl (Zantac -) 150 mg PO BID [facility] Last Admin: 02/05/19 10:02 Dose: 150 mg Sertraline HCl (Zoloft -) 50 mg PO DAILY [facility] Last Admin: 02/05/19 10:02 Dose: 50 mg Sumatriptan Succinate (Imitrex -) 50 mg PO PRN PRN PRN Reason: HEADACHE Last Admin: 02/04/19 09:59 Dose: 50 mg Thiamine HCl (Vitamin B1 -) 100 mg PO [facility] Last Admin: 02/04/19 21:29 Dose: 100 mg Topiramate (Topamax -) 25 mg PO BID [facility] Last Admin: 02/05/19 10:02 Dose: 25 mg Trazodone HCl (Desyrel -) 100 mg PO [facility] Last Admin: 02/04/19 21:29 Dose: 100 mg Gen: Less tachypneic with speaking Heart: RRR Lung: Scattered rhonchi, no wheezing appreciated Abd: soft, nontender Ext: no edema Laboratory Results - last 24 hr 02/05/19 02/05/19 06:00 06:00 WBC 26.6 H RBC 4.35 Hgb 12.8 Hct 39.4 MCV 90.5 MCH 29.4 MCHC 32.4 RDW 15.4 Plt Count 297 MPV 8.3 Sodium 135 L Potassium 4.1 Chloride 102 Carbon Dioxide 26 Anion Gap 7 L BUN 27 H Creatinine 0.7 Est GFR (CKD-EPI)AfAm 115.45 Est GFR (CKD-EPI)NonAf 99.62 Random Glucose 106 Calcium 9.2 Total Bilirubin 0.2 AST 6 L ALT 23 Alkaline Phosphatase 98 Total Protein 7.0 Albumin 3.3 L Problem List - Problems (1) COPD with acute exacerbation Code(s): J44.1 - CHRONIC OBSTRUCTIVE PULMONARY DISEASE W (ACUTE) EXACERBATION (2) Acute bronchitis Code(s): J20.9 - ACUTE BRONCHITIS, UNSPECIFIED (3) Bronchiectasis Code(s): J47.9 - BRONCHIECTASIS, UNCOMPLICATED A/P Acute COPD Exacerbation Acute Bronchitis Bronchiectasis HTN Hyperlipidemia R/O OSAS Post nasal drip - Fluticasone nasal spray - Can likely change to Prednisone tomorrow - inhaled bronchodilators - O2 to keep Spo2 >90% - azithromycin - DVT prophylaxis - Sleep workup after D/C Dr Carrera
[2019-02-05] MEDS: ALBUTEROL SO4 0.083% IH SOL 2.5 MG/3 ML VIAL.NEB. NEB PRN (14:53)
--- NOTE | 2019-02-05 16:09 | PN ---
Progress Note, Physician Chief Complaint: COPD Exacerbation Migraine Bacterial Vaginosis History of Present Illness: Previous notes and events reviewed awake and alert NAD denies chest pain patient sts breathing and cough is improving - Current Medication List Current Medications: Active Medications Al Hydroxide/Mg Hydroxide (Mylanta Oral Suspension -) 15 ml PO Q6H PRN PRN Reason: INDIGESTION/DYSPEPSIA Last Admin: 02/03/19 15:30 Dose: 15 ml Albuterol Sulfate (Ventolin 0.083% Nebulizer Soln -) 1 amp NEB Q6H PRN PRN Reason: SHORT OF BREATH/WHEEZING Last Admin: 02/05/19 14:53 Dose: 1 amp Atorvastatin Calcium (Lipitor -) 10 mg PO HS [facility] Last Admin: 02/04/19 21:29 Dose: 10 mg Benzocaine/Menthol (Cepacol Lozenge -) 1 each MM Q4H PRN PRN Reason: SORE THROAT Last Admin: 02/04/19 13:55 Dose: 1 each Fluticasone Propionate (Flonase -) 2 spray NS DAILY [facility] Last Admin: 02/05/19 10:02 Dose: 2 spray Furosemide (Lasix -) 40 mg PO DAILY [facility] Last Admin: 02/05/19 10:02 Dose: 40 mg Guaifenesin (Robitussin Dm -) 10 ml PO Q4H PRN PRN Reason: COUGH Last Admin: 02/04/19 09:48 Dose: 10 ml Heparin Sodium (Porcine) (Heparin -) 5,000 unit SQ BID [facility] Last Admin: 02/05/19 10:02 Dose: 5,000 unit Azithromycin (Zithromax 500mg Ivpb (Pre-Docked)) 500 mg in 250 mls @ 250 mls/ hr IVPB DAILY [facility] Last Admin: 02/05/19 09:59 Dose: 250 mls/hr Labetalol HCl (Normodyne -) 50 mg PO BID [facility] Last Admin: 02/05/19 10:37 Dose: 50 mg Methylprednisolone Sodium Succinate (Solu-Medrol -) 40 mg IVPUSH BID [facility] Last Admin: 02/05/19 10:02 Dose: 40 mg Mirtazapine (Remeron -) 30 mg PO HS [facility] Last Admin: 02/04/19 21:28 Dose: Not Given Nicotine (Nicoderm Patch -) 21 mg TD DAILY [facility] Last Admin: 02/05/19 10:03 Dose: Not Given Ranitidine HCl (Zantac -) 150 mg PO BID [facility] Last Admin: 02/05/19 10:02 Dose: 150 mg Sertraline HCl (Zoloft -) 50 mg PO DAILY [facility] Last Admin: 02/05/19 10:02 Dose: 50 mg Sumatriptan Succinate (Imitrex -) 50 mg PO PRN PRN PRN Reason: HEADACHE Last Admin: 02/04/19 09:59 Dose: 50 mg Thiamine HCl (Vitamin B1 -) 100 mg PO HS [facility] Last Admin: 02/04/19 21:29 Dose: 100 mg Topiramate (Topamax -) 25 mg PO BID [facility] Last Admin: 02/05/19 10:02 Dose: 25 mg Trazodone HCl (Desyrel -) 100 mg PO [facility] Last Admin: 02/04/19 21:29 Dose: 100 mg - Objective Vital Signs: Vital Signs Temperature 98.7 F 02/05/19 14:38 Pulse Rate 75 02/05/19 14:38 Respiratory Rate 20 02/05/19 14:38 Blood Pressure 116/70 02/05/19 14:38 O2 Sat by Pulse Oximetry (%) 99 02/05/19 09:00 Constitutional: Yes: No Distress, Calm Eyes: Yes: Conjunctiva Clear HENT: Yes: Atraumatic Cardiovascular: Yes: Regular Rate and Rhythm Respiratory: Yes: Diminished, On Nasal O2 Gastrointestinal: Yes: Normal Bowel Sounds, Soft, Abdomen, Obese Musculoskeletal: Yes: WNL Extremities: Yes: WNL Edema: No Neurological: Yes: Alert, Oriented Psychiatric: Yes: Alert, Oriented Labs: CBC, BMP 02/05/19 06:00 02/05/19 06:00 INR, PTT INR 1.02 (0.83-1.09) 01/30/19 23:50 Problem List - Problems (1) Headache Assessment/Plan: -Neurology on board -Head CT scan unremarkable -Topamax Code(s): R51 - HEADACHE (2) COPD with acute exacerbation Assessment/Plan: -Pulm on board -WBC 26.6 -IV Azithromycin -bronchodilators -Medrol--switch to prednisone tomorrow -Cepacol -Robitussin -keep SpO2 >90% -O2 via [place] -lasix Code(s): J44.1 - CHRONIC OBSTRUCTIVE PULMONARY DISEASE W (ACUTE) EXACERBATION (3) Hypercholesterolemia Assessment/Plan: -Atorvastatin Code(s): E78.00 - PURE HYPERCHOLESTEROLEMIA, UNSPECIFIED (4) Hypertension Assessment/Plan: -Nadolol -low Na diet Code(s): I10 - ESSENTIAL (PRIMARY) HYPERTENSION Qualifiers: Hypertension type: essential hypertension Qualified Code(s): I10 - Essential (primary) hypertension (5) Vaginal discharge Assessment/Plan: -CUT TO LENGTH OPERATOR on board -follow up with CUT TO LENGTH OPERATOR as outpatient Code(s): N89.8 - OTHER SPECIFIED NONINFLAMMATORY DISORDERS OF VAGINA Assessment/Plan see problem list dvt ppx
[2019-02-05] MEDS: SUMAtriptan SUCCINATE 50 MG TABLET PO PRN (17:48)
[2019-02-05] MEDS: ALBUTEROL SO4 2.5/IPRATROPIUM 0.5 INH SOL 3 ML VIAL.NEB. NEB PRN (21:15)
[2019-02-05] MEDS: ATORVASTATIN CA 10 MG TABLET (FP) PO SCH (21:37)
[2019-02-05] MEDS: THIAMINE HCL 100 MG TABLET (FP) PO SCH (21:38)
[2019-02-05] MEDS: traZODone HCL 100 MG TABLET (FP) PO SCH (21:38)
[2019-02-05] MEDS: MIRTAZAPINE 15 MG TABLET (FP) PO SCH (21:38)
[2019-02-06] MEDS: ALBUTEROL SO4 2.5/IPRATROPIUM 0.5 INH SOL 3 ML VIAL.NEB. NEB PRN (03:30)
[2019-02-06] MEDS ORDERED: PT OWN MED DRAWER 7, Y5N ONE (06:29)
[2019-02-06 07:08] LABS: HEMATOCRIT 38.7 % (32.4-45.2); HEMOGLOBIN 12.6 GM/dL (10.7-15.3); MCH 29.5 pg (25.7-33.7); MCHC 32.6 g/dl (32.0-36.0); MEAN CELL VOLUME 90.3 fl (80-96); MEAN PLT VOLUME 7.9 fl (7.5-11.1); PLATELET COUNT 285 K/MM3 (134-434); RBC 4.29 M/mm3 (3.60-5.2); RDW 15.6 % (11.6-15.6); WHITE BLOOD COUNT 24.5 K/mm3 (4.0-10.0)
[2019-02-06 08:00] LABS: BILIRUBIN,TOTAL 0.2 mg/dL (0.2-1); CALCIUM 9.1 mg/dL (8.5-10.1); CREATININE 0.8 mg/dL (0.55-1.3); POTASSIUM 4.3 mmol/L (3.5-5.1); TOT PROT 6.5 g/dl (6.4-8.2)
[2019-02-06] MEDS: RANITIDINE HCL 150 MG TABLET (FP) PO SCH ×2 (10:31→21:18)
[2019-02-06] MEDS: HEPARIN NA (PORCINE) 5,000 UNITS/ML 1ML VIAL SQ SCH ×2 (10:31→21:02)
[2019-02-06] MEDS: AZITHROMYCIN IVPB 500 MG/250 ML BAG IVPB SCH (10:31)
[2019-02-06] MEDS: LABETALOL HCL 100 MG TABLET (FP) PO SCH ×2 (10:31→21:18)
[2019-02-06] MEDS: TOPIRAMATE 25 MG TABLET (FP) PO SCH ×2 (10:31→21:22)
[2019-02-06] MEDS: methylPREDNISolone NA SUCC 40 MG/1 ML VIAL IVPUSH SCH ×2 (10:31→21:17)
[2019-02-06] MEDS: NICOTINE 21 MG/24 HOURS TOPICAL PATCH TD SCH (10:32)
[2019-02-06] MEDS: FLUTICASONE PROP 0.05% 16 GM NASAL SPRAY NS SCH (10:32)
[2019-02-06] MEDS: FUROSEMIDE 40 MG TABLET (FP) PO SCH (10:32)
[2019-02-06] MEDS: SERTRALINE HCL 50 MG TABLET (FP) PO SCH (10:32)
--- NOTE | 2019-02-06 13:13 | PN ---
Progress Note, Physician History of Present Illness: PULMONARY ALERT,SITTING UP IN BED,LESS DYSPNEIC - Current Medication List Current Medications: Active Medications Al Hydroxide/Mg Hydroxide (Mylanta Oral Suspension -) 15 ml PO Q6H PRN PRN Reason: INDIGESTION/DYSPEPSIA Last Admin: 02/03/19 15:30 Dose: 15 ml Albuterol/Ipratropium (Duoneb -) 1 amp NEB Q6H PRN PRN Reason: SHORTNESS OF BREATH Last Admin: 02/06/19 03:30 Dose: 1 amp Atorvastatin Calcium (Lipitor -) 10 mg PO HS [facility] Last Admin: 02/05/19 21:37 Dose: 10 mg Benzocaine/Menthol (Cepacol Lozenge -) 1 each MM Q4H PRN PRN Reason: SORE THROAT Last Admin: 02/04/19 13:55 Dose: 1 each Fluticasone Propionate (Flonase -) 2 spray NS DAILY [facility] Last Admin: 02/06/19 10:32 Dose: 2 spray Furosemide (Lasix -) 40 mg PO DAILY [facility] Last Admin: 02/06/19 10:32 Dose: 40 mg Guaifenesin (Robitussin Dm -) 10 ml PO Q4H PRN PRN Reason: COUGH Last Admin: 02/04/19 09:48 Dose: 10 ml Heparin Sodium (Porcine) (Heparin -) 5,000 unit SQ BID [facility] Last Admin: 02/06/19 10:31 Dose: Not Given Azithromycin (Zithromax 500mg Ivpb (Pre-Docked)) 500 mg in 250 mls @ 250 mls/ hr IVPB DAILY [facility] Last Admin: 02/06/19 10:31 Dose: 250 mls/hr Labetalol HCl (Normodyne -) 50 mg PO BID [facility] Last Admin: 02/06/19 10:31 Dose: 50 mg Methylprednisolone Sodium Succinate (Solu-Medrol -) 40 mg IVPUSH BID [facility] Last Admin: 02/06/19 10:31 Dose: 40 mg Mirtazapine (Remeron -) 30 mg PO HS [facility] Last Admin: 02/05/19 21:38 Dose: Not Given Nicotine (Nicoderm Patch -) 21 mg TD DAILY [facility] Last Admin: 02/06/19 10:32 Dose: Not Given Ranitidine HCl (Zantac -) 150 mg PO BID [facility] Last Admin: 02/06/19 10:31 Dose: 150 mg Sertraline HCl (Zoloft -) 50 mg PO DAILY [facility] Last Admin: 02/06/19 10:32 Dose: 50 mg Sumatriptan Succinate (Imitrex -) 50 mg PO PRN PRN PRN Reason: HEADACHE Last Admin: 02/05/19 17:48 Dose: 50 mg Thiamine HCl (Vitamin B1 -) 100 mg PO HS [facility] Last Admin: 02/05/19 21:38 Dose: 100 mg Topiramate (Topamax -) 25 mg PO BID [facility] Last Admin: 02/06/19 10:31 Dose: 25 mg Trazodone HCl (Desyrel -) 100 mg PO [facility] Last Admin: 02/05/19 21:38 Dose: 100 mg - Objective Vital Signs: Vital Signs Temperature 98.7 F 02/06/19 10:00 Pulse Rate 71 02/06/19 10:00 Respiratory Rate 20 02/06/19 10:00 Blood Pressure 131/74 02/06/19 10:00 O2 Sat by Pulse Oximetry (%) 100 02/05/19 21:00 Constitutional: Yes: Well Nourished, Calm Eyes: Yes: WNL HENT: Yes: WNL Neck: Yes: WNL Cardiovascular: Yes: Regular Rate and Rhythm, S1, S2 Respiratory: Yes: Wheezes (SCATTERED KARL WHEEZES) Gastrointestinal: Yes: Normal Bowel Sounds, Soft Extremities: Yes: WNL Edema: No Labs: CBC, BMP 02/06/19 06:30 02/06/19 06:30 INR, PTT INR 1.02 (0.83-1.09) 01/30/19 23:50 Assessment/Plan A/P Acute COPD Exacerbation improving Acute Bronchitis Bronchiectasis HTN Hyperlipidemia Likely OSAS - medrol - inhaled bronchodilators - O2 to keep Spo2 >90% - azithromycin - DVT prophylaxis - symbicort 160/4.5 - spiriva -sleep studies outpatient Problem List - Problems (1) COPD with acute exacerbation Code(s): J44.1 - CHRONIC OBSTRUCTIVE PULMONARY DISEASE W (ACUTE) EXACERBATION (2) Acute bronchitis Code(s): J20.9 - ACUTE BRONCHITIS, UNSPECIFIED (3) Bronchiectasis Code(s): J47.9 - BRONCHIECTASIS, UNCOMPLICATED DR HURST
[2019-02-06] MEDS: TIOTROPIUM BROMIDE 2.5 MCG (SPIRIVA) RESPIMAT INHALER IH SCH (14:22)
[2019-02-06] MEDS: BUDESONIDE/FORMETEROL FUMARATE 160/4.5 mcg INHALER IH SCH ×2 (14:22→21:19)
--- NOTE | 2019-02-06 15:41 | PN ---
Progress Note, Physician Chief Complaint: COPD Exacerbation Migraine Bacterial Vaginosis History of Present Illness: Previous notes and events reviewed awake and alert NAD denies chest pain sts breathing and cough is improving - Current Medication List Current Medications: Active Medications Al Hydroxide/Mg Hydroxide (Mylanta Oral Suspension -) 15 ml PO Q6H PRN PRN Reason: INDIGESTION/DYSPEPSIA Last Admin: 02/03/19 15:30 Dose: 15 ml Albuterol Sulfate (Ventolin 0.083% Nebulizer Soln -) 1 amp NEB Q4H PRN PRN Reason: SHORT OF BREATH/WHEEZING Atorvastatin Calcium (Lipitor -) 10 mg PO HS [facility] Last Admin: 02/05/19 21:37 Dose: 10 mg Benzocaine/Menthol (Cepacol Lozenge -) 1 each MM Q4H PRN PRN Reason: SORE THROAT Last Admin: 02/04/19 13:55 Dose: 1 each Budesonide/Formoterol Fumarate (Symbicort 160/4.5mcg -) 2 puff IH BID [facility] Last Admin: 02/06/19 14:22 Dose: 2 puff Fluticasone Propionate (Flonase -) 2 spray NS DAILY [facility] Last Admin: 02/06/19 10:32 Dose: 2 spray Furosemide (Lasix -) 40 mg PO DAILY [facility] Last Admin: 02/06/19 10:32 Dose: 40 mg Guaifenesin (Robitussin Dm -) 10 ml PO Q4H PRN PRN Reason: COUGH Last Admin: 02/04/19 09:48 Dose: 10 ml Heparin Sodium (Porcine) (Heparin -) 5,000 unit SQ BID [facility] Last Admin: 02/06/19 10:31 Dose: Not Given Azithromycin (Zithromax 500mg Ivpb (Pre-Docked)) 500 mg in 250 mls @ 250 mls/ hr IVPB DAILY [facility] Last Admin: 02/06/19 10:31 Dose: 250 mls/hr Labetalol HCl (Normodyne -) 50 mg PO BID [facility] Last Admin: 02/06/19 10:31 Dose: 50 mg Methylprednisolone Sodium Succinate (Solu-Medrol -) 40 mg IVPUSH BID [facility] Last Admin: 02/06/19 10:31 Dose: 40 mg Mirtazapine (Remeron -) 30 mg PO HS [facility] Last Admin: 02/05/19 21:38 Dose: Not Given Nicotine (Nicoderm Patch -) 21 mg TD DAILY [facility] Last Admin: 02/06/19 10:32 Dose: Not Given Ranitidine HCl (Zantac -) 150 mg PO BID [facility] Last Admin: 02/06/19 10:31 Dose: 150 mg Sertraline HCl (Zoloft -) 50 mg PO DAILY [facility] Last Admin: 02/06/19 10:32 Dose: 50 mg Sumatriptan Succinate (Imitrex -) 50 mg PO PRN PRN PRN Reason: HEADACHE Last Admin: 02/05/19 17:48 Dose: 50 mg Thiamine HCl (Vitamin B1 -) 100 mg PO [facility] Last Admin: 02/05/19 21:38 Dose: 100 mg Tiotropium [place] (Spiriva Respimat) 2 puff IH DAILY [facility] Last Admin: 02/06/19 14:22 Dose: 2 puff Topiramate (Topamax -) 25 mg PO BID [facility] Last Admin: 02/06/19 10:31 Dose: 25 mg Trazodone HCl (Desyrel -) 100 mg PO [facility] Last Admin: 02/05/19 21:38 Dose: 100 mg - Objective Vital Signs: Vital Signs Temperature 98.3 F 02/06/19 15:05 Pulse Rate 75 02/06/19 15:05 Respiratory Rate 20 02/06/19 15:05 Blood Pressure 133/68 02/06/19 15:05 O2 Sat by Pulse Oximetry (%) 100 02/06/19 09:00 Constitutional: Yes: No Distress, Calm Eyes: Yes: Conjunctiva Clear HENT: Yes: Atraumatic Cardiovascular: Yes: Regular Rate and Rhythm Respiratory: Yes: Regular, Diminished, On Nasal O2 Gastrointestinal: Yes: Normal Bowel Sounds, Soft, Abdomen, Obese Musculoskeletal: Yes: WNL Extremities: Yes: WNL Edema: No Neurological: Yes: Alert, Oriented Psychiatric: Yes: Alert, Oriented Labs: CBC, BMP 02/06/19 06:30 02/06/19 06:30 INR, PTT INR 1.02 (0.83-1.09) 01/30/19 23:50 Microbiology 01/31/19 17:08 Urine - Urine Clean Catch Urine Culture - Final Problem List - Problems (1) Headache Assessment/Plan: -Neurology on board -Head CT scan unremarkable -Topamax Code(s): R51 - HEADACHE (2) COPD with acute exacerbation Assessment/Plan: -Pulm on board -WBC 26.6 -IV Azithromycin -bronchodilators -Medrol BID--switch to prednisone tomorrow -Cepacol -Robitussin -keep SpO2 >90% -O2 via [place] -lasix Code(s): J44.1 - CHRONIC OBSTRUCTIVE PULMONARY DISEASE W (ACUTE) EXACERBATION (3) Hypercholesterolemia Assessment/Plan: -Atorvastatin Code(s): E78.00 - PURE HYPERCHOLESTEROLEMIA, UNSPECIFIED (4) Hypertension Assessment/Plan: -Nadolol -low Na diet Code(s): I10 - ESSENTIAL (PRIMARY) HYPERTENSION Qualifiers: Hypertension type: essential hypertension Qualified Code(s): I10 - Essential (primary) hypertension (5) Vaginal discharge Assessment/Plan: -MONITOR TECH on board -follow up with [facility] as outpatient Code(s): N89.8 - OTHER SPECIFIED NONINFLAMMATORY DISORDERS OF VAGINA Assessment/Plan see problem list dvt ppx
[2019-02-06 17:13] VITALS: BMI 38.7
[2019-02-06] MEDS: ALBUTEROL SO4 0.083% IH SOL 2.5 MG/3 ML VIAL.NEB. NEB PRN (21:10)
[2019-02-06] MEDS: MIRTAZAPINE 15 MG TABLET (FP) PO SCH ×2 (21:17→21:26)
[2019-02-06] MEDS: ATORVASTATIN CA 10 MG TABLET (FP) PO SCH (21:18)
[2019-02-06] MEDS: traZODone HCL 100 MG TABLET (FP) PO SCH (21:22)
[2019-02-06] MEDS: THIAMINE HCL 100 MG TABLET (FP) PO SCH (21:22)
[2019-02-07] MEDS: ALBUTEROL SO4 0.083% IH SOL 2.5 MG/3 ML VIAL.NEB. NEB PRN ×3 (05:29→11:42)
[2019-02-07 07:55] LABS: HEMATOCRIT 38.8 % (32.4-45.2); HEMOGLOBIN 12.4 GM/dL (10.7-15.3); MCH 29.3 pg (25.7-33.7); MCHC 32.1 g/dl (32.0-36.0); MEAN CELL VOLUME 91.3 fl (80-96); MEAN PLT VOLUME 8.3 fl (7.5-11.1); PLATELET COUNT 292 K/MM3 (134-434); RBC 4.25 M/mm3 (3.60-5.2); RDW 15.8 % (11.6-15.6); WHITE BLOOD COUNT 25.5 K/mm3 (4.0-10.0)
[2019-02-07 08:29] LABS: BILIRUBIN,TOTAL 0.2 mg/dL (0.2-1); CALCIUM 8.9 mg/dL (8.5-10.1); CREATININE 0.7 mg/dL (0.55-1.3); POTASSIUM 4.3 mmol/L (3.5-5.1); TOT PROT 6.5 g/dl (6.4-8.2)
[2019-02-07] MEDS: SUMAtriptan SUCCINATE 50 MG TABLET PO PRN (08:29)
--- NOTE | 2019-02-07 10:01 | PN ---
Progress Note (short form) - Note Progress Note: Needed an additional treatment this AM. Overall better. Intake & Output 02/04/19 02/05/19 02/06/19 02/07/19 23:59 23:59 23:59 23:59 Intake Total 1380 1485 1625 Balance 1380 1485 1625 Weight 233 lb 11.2 oz 232 lb 14.4 oz 233 lb 234 lb 9.6 oz Last Vital Signs Temp Pulse Resp BP Pulse Ox 97.5 F L 75 22 H 134/95 100 02/07/19 05:50 02/07/19 05:50 02/07/19 05:50 02/07/19 05:50 02/06/19 21:00 Active Medications Al Hydroxide/Mg Hydroxide (Mylanta Oral Suspension -) 15 ml PO Q6H PRN PRN Reason: INDIGESTION/DYSPEPSIA Last Admin: 02/03/19 15:30 Dose: 15 ml Albuterol Sulfate (Ventolin 0.083% Nebulizer Soln -) 1 amp NEB Q4H PRN PRN Reason: SHORT OF BREATH/WHEEZING Last Admin: 02/07/19 05:29 Dose: 1 amp Atorvastatin Calcium (Lipitor -) 10 mg PO HS [facility] Last Admin: 02/06/19 21:18 Dose: 10 mg Benzocaine/Menthol (Cepacol Lozenge -) 1 each MM Q4H PRN PRN Reason: SORE THROAT Last Admin: 02/04/19 13:55 Dose: 1 each Budesonide/Formoterol Fumarate (Symbicort 160/4.5mcg -) 2 puff IH BID [facility] Last Admin: 02/06/19 21:19 Dose: 2 puff Fluticasone Propionate (Flonase -) 2 spray NS DAILY [facility] Last Admin: 02/06/19 10:32 Dose: 2 spray Furosemide (Lasix -) 40 mg PO DAILY [facility] Last Admin: 02/06/19 10:32 Dose: 40 mg Guaifenesin (Robitussin Dm -) 10 ml PO Q4H PRN PRN Reason: COUGH Last Admin: 02/04/19 09:48 Dose: 10 ml Labetalol HCl (Normodyne -) 50 mg PO BID [facility] Last Admin: 02/06/19 21:18 Dose: 50 mg Methylprednisolone Sodium Succinate (Solu-Medrol -) 40 mg IVPUSH BID [facility] Last Admin: 02/06/19 21:17 Dose: 40 mg Mirtazapine (Remeron -) 30 mg PO HS [facility] Last Admin: 02/06/19 21:26 Dose: Not Given Nicotine (Nicoderm Patch -) 21 mg TD DAILY [facility] Last Admin: 02/06/19 10:32 Dose: Not Given Ranitidine HCl (Zantac -) 150 mg PO BID [facility] Last Admin: 02/06/19 21:18 Dose: 150 mg Sertraline HCl (Zoloft -) 50 mg PO DAILY [facility] Last Admin: 02/06/19 10:32 Dose: 50 mg Sumatriptan Succinate (Imitrex -) 50 mg PO PRN PRN PRN Reason: HEADACHE Last Admin: 02/07/19 08:29 Dose: 50 mg Thiamine HCl (Vitamin B1 -) 100 mg PO [facility] Last Admin: 02/06/19 21:22 Dose: 100 mg Tiotropium [place] (Spiriva Respimat) 2 puff IH DAILY [facility] Last Admin: 02/06/19 14:22 Dose: 2 puff Topiramate (Topamax -) 25 mg PO BID [facility] Last Admin: 02/06/19 21:22 Dose: 25 mg Trazodone HCl (Desyrel -) 100 mg PO [facility] Last Admin: 02/06/19 21:22 Dose: 100 mg Gen: NAD Heart: RRR Lung: Scattered rhonchi, no wheezing appreciated Abd: soft, nontender Ext: no edema Laboratory Results - last 24 hr 02/07/19 02/07/19 07:00 07:00 WBC 25.5 H RBC 4.25 Hgb 12.4 Hct 38.8 MCV 91.3 MCH 29.3 MCHC 32.1 RDW 15.8 H Plt Count 292 MPV 8.3 Sodium 139 Potassium 4.3 Chloride 103 Carbon Dioxide 26 Anion Gap 10 BUN 25 H Creatinine 0.7 Est GFR (CKD-EPI)AfAm 115.45 Est GFR (CKD-EPI)NonAf 99.62 Random Glucose 94 Calcium 8.9 Total Bilirubin 0.2 AST 5 L ALT 22 Alkaline Phosphatase 85 Total Protein 6.5 Albumin 3.0 L Problem List - Problems (1) COPD with acute exacerbation Code(s): J44.1 - CHRONIC OBSTRUCTIVE PULMONARY DISEASE W (ACUTE) EXACERBATION (2) Acute bronchitis Code(s): J20.9 - ACUTE BRONCHITIS, UNSPECIFIED (3) Bronchiectasis Code(s): J47.9 - BRONCHIECTASIS, UNCOMPLICATED A/P Acute COPD Exacerbation Acute Bronchitis Bronchiectasis HTN Hyperlipidemia R/O OSAS Post nasal drip - Change to Prednisone - Fluticasone nasal spray - inhaled bronchodilators - O2 to keep Spo2 >90% - azithromycin - DVT prophylaxis - Sleep workup after D/C Dr Carrera
[2019-02-07] MEDS: FUROSEMIDE 40 MG TABLET (FP) PO SCH (10:03)
[2019-02-07] MEDS: BUDESONIDE/FORMETEROL FUMARATE 160/4.5 mcg INHALER IH SCH (10:04)
[2019-02-07] MEDS: TOPIRAMATE 25 MG TABLET (FP) PO SCH (10:04)
[2019-02-07] MEDS: SERTRALINE HCL 50 MG TABLET (FP) PO SCH (10:04)
[2019-02-07] MEDS: NICOTINE 21 MG/24 HOURS TOPICAL PATCH TD SCH (10:04)
[2019-02-07] MEDS: TIOTROPIUM BROMIDE 2.5 MCG (SPIRIVA) RESPIMAT INHALER IH SCH (10:04)
[2019-02-07] MEDS: RANITIDINE HCL 150 MG TABLET (FP) PO SCH (10:04)
[2019-02-07] MEDS: LABETALOL HCL 100 MG TABLET (FP) PO SCH (10:04)
[2019-02-07] MEDS: FLUTICASONE PROP 0.05% 16 GM NASAL SPRAY NS SCH (10:05)
[2019-02-07] MEDS ORDERED: predniSONE 20 MG TABLET (UD) PO SCH (10:15)
[2019-02-07] MEDS: methylPREDNISolone NA SUCC 40 MG/1 ML VIAL IVPUSH SCH (10:59)
--- NOTE | 2019-02-07 14:22 | DS ---
Physical Examination Vital Signs: Vital Signs Temperature 98.2 F 02/07/19 10:00 Pulse Rate 84 02/07/19 10:00 Respiratory Rate 20 02/07/19 10:00 Blood Pressure 111/57 L 02/07/19 10:00 O2 Sat by Pulse Oximetry (%) 100 02/06/19 21:00 Findings/Remarks: Patient is a 53 y/o female with past medical history of past PSA, anxiety, depression, asthma, COPD, HTN, HLD. Patient presents from [facility] with complaint of worsening SOB . Patient has multiple episode of COPD exacerbation. Constitutional: Yes: No Distress, Calm Eyes: Yes: Conjunctiva Clear HENT: Yes: Atraumatic Neck: Yes: Supple Cardiovascular: Yes: Regular Rate and Rhythm Respiratory: Yes: Regular, Diminished, On Nasal O2 Gastrointestinal: Yes: Normal Bowel Sounds, Soft, Abdomen, Obese Musculoskeletal: Yes: WNL Extremities: Yes: WNL Edema: No Neurological: Yes: Alert, Oriented Psychiatric: Yes: Alert, Oriented Labs: CBC, BMP 02/07/19 07:00 02/07/19 07:00 Discharge Summary Reason For Visit: CHRONIC OBSTRUCTIVE PULMONARY DISEASE Current Active Problems Bacterial vaginal infection (Acute) COPD with acute exacerbation (Acute) Headache (Acute) Vaginal discharge (Acute) COPD (chronic obstructive pulmonary disease) (Chronic) Hospital Course: see progress notes Laboratory Tests 01/30/19 01/30/19 01/30/19 23:50 23:50 23:50 WBC 13.9 H RBC 3.98 Hgb 11.8 Hct 36.1 MCV 90.6 MCH 29.5 MCHC 32.6 RDW 15.4 Plt Count 244 MPV 8.2 Absolute Neuts (auto) 9.7 H Neutrophils % 70.2 D Neutrophils % (Manual) Band Neutrophils % Lymphocytes % 19.9 D Lymphocytes % (Manual) Monocytes % 7.0 Monocytes % (Manual) Eosinophils % 1.8 Eosinophils % (Manual) Basophils % 1.1 D Basophils % (Manual) Myelocytes % (Man) Promyelocytes % (Man) Blast Cells % (Manual) Nucleated RBC % 0 Metamyelocytes Hypochromia Platelet Estimate Polychromasia Poikilocytosis Anisocytosis Microcytosis Macrocytosis PT with INR 12.00 INR 1.02 VBG pH 7.41 POC VBG pCO2 44.5 POC VBG pO2 46.9 H VBG HCO3 27.6 VBG O2 Sat (Alana) 80.0 VBG Base Excess 3.0 H Sodium Potassium Chloride Carbon Dioxide Anion Gap BUN Creatinine Est GFR (CKD-EPI)AfAm Est GFR (CKD-EPI)NonAf Random Glucose Calcium Iron TIBC Iron Saturation Total Bilirubin AST ALT Alkaline Phosphatase Creatine Kinase Troponin I Total Protein Albumin Urine Color Urine Appearance Urine pH Ur Specific Elbert Urine Protein Urine Glucose (UA) Urine Ketones Urine Blood Urine Nitrite Urine Bilirubin Urine Urobilinogen Ur Leukocyte Esterase Influenza A (Rapid) Influenza B (Rapid) 01/30/19 01/31/19 01/31/19 23:50 00:42 13:40 WBC 13.1 H RBC 4.19 Hgb 12.3 Hct 37.9 MCV 90.4 MCH 29.4 MCHC 32.5 RDW 15.1 Plt Count 293 D MPV 8.3 Absolute Neuts (auto) 12.5 H Neutrophils % 95.7 H D Neutrophils % (Manual) 93.0 H Band Neutrophils % 0.0 Lymphocytes % 3.9 L D Lymphocytes % (Manual) 6.0 L D Monocytes % 0.3 L D Monocytes % (Manual) 1 L D Eosinophils % 0.0 D Eosinophils % (Manual) 0.0 Basophils % 0.1 Basophils % (Manual) 0.0 Myelocytes % (Man) 0 Promyelocytes % (Man) 0 Blast Cells % (Manual) 0 Nucleated RBC % 0 Metamyelocytes 0 D Hypochromia 0 Platelet Estimate Normal Polychromasia 0 Poikilocytosis 0 Anisocytosis 1+ Microcytosis 1+ Macrocytosis 0 PT with INR INR VBG pH POC VBG pCO2 POC VBG pO2 VBG HCO3 VBG O2 Sat (Alana) VBG Base Excess Sodium 138 Potassium 3.4 L Chloride 104 Carbon Dioxide 28 Anion Gap 7 L BUN 15 Creatinine 0.6 Est GFR (CKD-EPI)AfAm 121.46 Est GFR (CKD-EPI)NonAf 104.80 Random Glucose 76 Calcium 9.0 Iron TIBC Iron Saturation Total Bilirubin 0.2 AST 11 L ALT 22 Alkaline Phosphatase 121 H Creatine Kinase 119 Troponin I < 0.02 Total Protein 7.3 Albumin 3.5 Urine Color Urine Appearance Urine pH Ur Specific Elbert Urine Protein Urine Glucose (UA) Urine Ketones Urine Blood Urine Nitrite Urine Bilirubin Urine Urobilinogen Ur Leukocyte Esterase Influenza A (Rapid) Negative Influenza B (Rapid) Negative 01/31/19 01/31/19 02/01/19 13:40 17:08 06:00 WBC 19.2 H RBC 3.90 Hgb 11.5 Hct 35.6 MCV 91.2 MCH 29.5 MCHC 32.3 RDW 14.7 Plt Count 277 MPV 8.7 Absolute Neuts (auto) 17.2 H Neutrophils % 89.4 H Neutrophils % (Manual) Band Neutrophils % Lymphocytes % 6.5 L D Lymphocytes % (Manual) Monocytes % 4.0 D Monocytes % (Manual) Eosinophils % 0.0 Eosinophils % (Manual) Basophils % 0.1 Basophils % (Manual) Myelocytes % (Man) Promyelocytes % (Man) Blast Cells % (Manual) Nucleated RBC % 0 Metamyelocytes Hypochromia Platelet Estimate Polychromasia Poikilocytosis Anisocytosis Microcytosis Macrocytosis PT with INR INR VBG pH POC VBG pCO2 POC VBG pO2 VBG HCO3 VBG O2 Sat (Alana) VBG Base Excess Sodium 137 Potassium 4.1 Chloride 103 Carbon Dioxide 25 Anion Gap 9 BUN 16 Creatinine 1.0 Est GFR (CKD-EPI)AfAm 75.01 Est GFR (CKD-EPI)NonAf 64.72 Random Glucose 157 H Calcium 9.4 Iron TIBC Iron Saturation Total Bilirubin 0.3 AST 12 L ALT 25 Alkaline Phosphatase 134 H Creatine Kinase Troponin I Total Protein 7.9 Albumin 3.7 Urine Color Yellow Urine Appearance Clear Urine pH 6.5 Ur Specific Elbert 1.023 Urine Protein Negative Urine Glucose (UA) Negative Urine Ketones Negative Urine Blood Negative Urine Nitrite Negative Urine Bilirubin Negative Urine Urobilinogen 1.0 Ur Leukocyte Esterase Negative Influenza A (Rapid) Influenza B (Rapid) 02/01/19 02/01/19 02/02/19 06:00 15:00 07:45 WBC 20.0 H RBC 4.02 Hgb 11.9 Hct 36.6 MCV 90.8 MCH 29.6 MCHC 32.6 RDW 15.2 Plt Count 277 MPV 8.5 Absolute Neuts (auto) Neutrophils % Neutrophils % (Manual) Band Neutrophils % Lymphocytes % Lymphocytes % (Manual) Monocytes % Monocytes % (Manual) Eosinophils % Eosinophils % (Manual) Basophils % Basophils % (Manual) Myelocytes % (Man) Promyelocytes % (Man) Blast Cells % (Manual) Nucleated RBC % Metamyelocytes Hypochromia Platelet Estimate Polychromasia Poikilocytosis Anisocytosis Microcytosis Macrocytosis PT with INR INR VBG pH POC VBG pCO2 POC VBG pO2 VBG HCO3 VBG O2 Sat (Alana) VBG Base Excess Sodium 139 Potassium 4.3 Chloride 106 Carbon Dioxide 27 Anion Gap 7 L BUN 21 H Creatinine 0.6 Est GFR (CKD-EPI)AfAm 121.46 Est GFR (CKD-EPI)NonAf 104.80 Random Glucose 115 H Calcium 9.6 Iron 80 TIBC 270 Iron Saturation 30 Total Bilirubin 0.2 AST 15 ALT 22 Alkaline Phosphatase 119 H Creatine Kinase Troponin I Total Protein 7.2 Albumin 3.4 Urine Color Urine Appearance Urine pH Ur Specific Elbert Urine Protein Urine Glucose (UA) Urine Ketones Urine Blood Urine Nitrite Urine Bilirubin Urine Urobilinogen Ur Leukocyte Esterase Influenza A (Rapid) Influenza B (Rapid) 02/02/19 02/05/19 02/05/19 07:45 06:00 06:00 WBC 26.6 H RBC 4.35 Hgb 12.8 Hct 39.4 MCV 90.5 MCH 29.4 MCHC 32.4 RDW 15.4 Plt Count 297 MPV 8.3 Absolute Neuts (auto) Neutrophils % Neutrophils % (Manual) Band Neutrophils % Lymphocytes % Lymphocytes % (Manual) Monocytes % Monocytes % (Manual) Eosinophils % Eosinophils % (Manual) Basophils % Basophils % (Manual) Myelocytes % (Man) Promyelocytes % (Man) Blast Cells % (Manual) Nucleated RBC % Metamyelocytes Hypochromia Platelet Estimate Polychromasia Poikilocytosis Anisocytosis Microcytosis Macrocytosis PT with INR INR VBG pH POC VBG pCO2 POC VBG pO2 VBG HCO3 VBG O2 Sat (Alana) VBG Base Excess Sodium 140 135 L Potassium 3.9 4.1 Chloride 105 102 Carbon Dioxide 25 26 Anion Gap 10 7 L BUN 17 27 H Creatinine 0.8 0.7 Est GFR (CKD-EPI)AfAm 98.24 115.45 Est GFR (CKD-EPI)NonAf 84.76 99.62 Random Glucose 135 H 106 Calcium 9.2 9.2 Iron TIBC Iron Saturation Total Bilirubin 0.1 L 0.2 AST 13 L 6 L ALT 26 23 Alkaline Phosphatase 112 98 Creatine Kinase Troponin I Total Protein 7.1 7.0 Albumin 3.5 3.3 L Urine Color Urine Appearance Urine pH Ur Specific Elbert Urine Protein Urine Glucose (UA) Urine Ketones Urine Blood Urine Nitrite Urine Bilirubin Urine Urobilinogen Ur Leukocyte Esterase Influenza A (Rapid) Influenza B (Rapid) 02/06/19 02/06/19 02/07/19 06:30 06:30 07:00 WBC 24.5 H 25.5 H RBC 4.29 4.25 Hgb 12.6 12.4 Hct 38.7 38.8 MCV 90.3 91.3 MCH 29.5 29.3 MCHC 32.6 32.1 RDW 15.6 15.8 H Plt Count 285 292 MPV 7.9 8.3 Absolute Neuts (auto) Neutrophils % Neutrophils % (Manual) Band Neutrophils % Lymphocytes % Lymphocytes % (Manual) Monocytes % Monocytes % (Manual) Eosinophils % Eosinophils % (Manual) Basophils % Basophils % (Manual) Myelocytes % (Man) Promyelocytes % (Man) Blast Cells % (Manual) Nucleated RBC % Metamyelocytes Hypochromia Platelet Estimate Polychromasia Poikilocytosis Anisocytosis Microcytosis Macrocytosis PT with INR INR VBG pH POC VBG pCO2 POC VBG pO2 VBG HCO3 VBG O2 Sat (Alana) VBG Base Excess Sodium 137 Potassium 4.3 Chloride 103 Carbon Dioxide 26 Anion Gap 8 BUN 27 H Creatinine 0.8 Est GFR (CKD-EPI)AfAm 98.24 Est GFR (CKD-EPI)NonAf 84.76 Random Glucose 95 Calcium 9.1 Iron TIBC Iron Saturation Total Bilirubin 0.2 AST 8 L ALT 22 Alkaline Phosphatase 89 Creatine Kinase Troponin I Total Protein 6.5 Albumin 3.0 L Urine Color Urine Appearance Urine pH Ur Specific Elbert Urine Protein Urine Glucose (UA) Urine Ketones Urine Blood Urine Nitrite Urine Bilirubin Urine Urobilinogen Ur Leukocyte Esterase Influenza A (Rapid) Influenza B (Rapid) 02/07/19 07:00 WBC RBC Hgb Hct MCV MCH MCHC RDW Plt Count MPV Absolute Neuts (auto) Neutrophils % Neutrophils % (Manual) Band Neutrophils % Lymphocytes % Lymphocytes % (Manual) Monocytes % Monocytes % (Manual) Eosinophils % Eosinophils % (Manual) Basophils % Basophils % (Manual) Myelocytes % (Man) Promyelocytes % (Man) Blast Cells % (Manual) Nucleated RBC % Metamyelocytes Hypochromia Platelet Estimate Polychromasia Poikilocytosis Anisocytosis Microcytosis Macrocytosis PT with INR INR VBG pH POC VBG pCO2 POC VBG pO2 VBG HCO3 VBG O2 Sat (Alana) VBG Base Excess Sodium 139 Potassium 4.3 Chloride 103 Carbon Dioxide 26 Anion Gap 10 BUN 25 H Creatinine 0.7 Est GFR (CKD-EPI)AfAm 115.45 Est GFR (CKD-EPI)NonAf 99.62 Random Glucose 94 Calcium 8.9 Iron TIBC Iron Saturation Total Bilirubin 0.2 AST 5 L ALT 22 Alkaline Phosphatase 85 Creatine Kinase Troponin I Total Protein 6.5 Albumin 3.0 L Urine Color Urine Appearance Urine pH Ur Specific Elbert Urine Protein Urine Glucose (UA) Urine Ketones Urine Blood Urine Nitrite Urine Bilirubin Urine Urobilinogen Ur Leukocyte Esterase Influenza A (Rapid) Influenza B (Rapid) Active Medications Generic Name Dose Route Start Last Admin Trade Name Freq PRN Reason Stop Dose Admin Al Hydroxide/Mg Hydroxide 15 ml 02/03/19 15:16 02/03/19 15:30 Mylanta Oral Suspension - PO 15 ml Q6H PRN Administration INDIGESTION/DYSPEPSIA Albuterol Sulfate 1 amp 02/06/19 13:16 02/07/19 11:42 Ventolin 0.083% Nebulizer Soln - NEB 1 amp Q4H PRN Administration SHORT OF BREATH/WHEEZING Atorvastatin Calcium 10 mg 01/31/19 22:00 02/06/19 21:18 Lipitor - PO 10 mg HS BETH Administration Benzocaine/Menthol 1 each 02/02/19 12:52 02/04/19 13:55 Cepacol Lozenge - MM 1 each Q4H PRN Administration SORE THROAT Budesonide/Formoterol Fumarate 2 puff 02/06/19 13:30 02/07/19 10:04 Symbicort 160/4.5mcg - IH 2 puff BID BETH Administration Fluticasone Propionate 2 spray 02/04/19 12:15 02/07/19 10:05 Flonase - NS 2 spray DAILY BETH Administration Furosemide 40 mg 01/31/19 10:00 02/07/19 10:03 Lasix - PO 40 mg DAILY BETH Administration Guaifenesin 10 ml 02/02/19 12:52 02/04/19 09:48 Robitussin Dm - PO 10 ml Q4H PRN Administration COUGH Labetalol HCl 50 mg 01/31/19 10:00 02/07/19 10:04 Normodyne - PO 50 mg BID BETH Administration Mirtazapine 30 mg 02/01/19 11:45 02/06/19 21:26 Remeron - PO Not Given HS BETH Nicotine 21 mg 01/31/19 10:00 02/07/19 10:04 Nicoderm Patch - TD Not Given DAILY BETH Prednisone 40 mg 02/07/19 10:15 02/07/19 11:02 Deltasone - PO 40 mg DAILY BETH Administration Ranitidine HCl 150 mg 01/31/19 10:00 02/07/19 10:04 Zantac - PO 150 mg BID BETH Administration Sertraline HCl 50 mg 01/31/19 10:00 02/07/19 10:04 Zoloft - PO 50 mg DAILY BETH Administration Sumatriptan Succinate 50 mg 02/01/19 17:32 02/07/19 08:29 Imitrex - PO 50 mg PRN PRN Administration HEADACHE Thiamine HCl 100 mg 01/31/19 22:00 02/06/19 21:22 Vitamin B1 - PO 100 mg HS BETH Administration Tiotropium [place] 2 puff 02/06/19 13:15 02/07/19 10:04 Spiriva Respimat IH 2 puff DAILY BETH Administration Topiramate 25 mg 02/01/19 22:00 02/07/19 10:04 Topamax - PO 25 mg BID BETH Administration Trazodone HCl 100 mg 01/31/19 23:00 02/06/19 21:22 Desyrel - PO 100 mg HS BETH Administration Microbiology 01/31/19 17:08 Urine - Urine Clean Catch Urine Culture - Final Condition: Stable - Instructions Diet, Activity, Other Instructions: follow up with PMD follow up with Sebastian Agrawal continue with current medication regimen as scheduled return to ER if develop respiratory distress, fever, chest pain Tapering dose of Prednisone Disposition: [facility] - Home Medications Comprehensive Discharge Medication List: Ambulatory Orders Acetaminophen [Tylenol] 650 mg PO ASDIR 10/05/18 Albuterol 0.083% Nebulizer Jyoti [Ventolin 0.083% Nebulizer Soln -] 1 neb NEB QID 10/05/18 Melatonin 5 mg PO DAILY 10/05/18 Mirtazapine [Remeron -] 30 mg PO DAILY 10/05/18 95/Iron Fum/Folic/Dha [ + Dha Combo Pack] 1 each PO DAILY 10/05 Sertraline HCl [Zoloft -] 50 mg PO DAILY 10/05/18 Thiamine HCl [B-1] 100 mg PO HS 10/05/18 traZODone HCL [Trazodone HCl] 100 mg PO ASDIR 10/05/18 Albuterol Sulfate Inhaler - [Ventolin HFA Inhaler -] 2 puff IH Q4H PRN 10/08/18 Simvastatin 20 mg PO HS 10/08/18 Aclidinium [place] [Tudorza Pressair] 400 mcg IH DAILY 10/12/18 Nicotine Patch [Nicoderm Patch -] 21 mg TD DAILY patch 10/12/18 Ranitidine [Zantac -] 150 mg PO BID tablet 10/12/18 Furosemide [Lasix -] 40 mg PO DAILY #30 tablet MDD 1 11/02/18 Labetalol HCl [Normodyne -] 50 mg PO BID #30 tablet MDD 2 11/05/18 Thiamine HCl [Vitamin B1 -] 100 mg PO HS #30 tablet MDD 1 11/08/18 Albuterol 0.083% Nebulizer Jyoti [Ventolin 0.083% Nebulizer Soln -] 1 amp NEB Q6H PRN amp 02/07/19 Albuterol 2.5/Ipratropium 0.5 [Duoneb -] 1 amp NEB Q6H PRN amp 02/07/19 Atorvastatin Ca [Lipitor] 10 mg PO HS tablet 02/07/19 Budesonide/Formeterol Fumarate [SYMBICORT 160/4.5mcg -] 2 puff IH BID inhaler 02/07/19 Fluticasone Prop 0.05% Nasal [Flonase -] 2 spray NS DAILY spray 02/07/19 Guaifenesin Dm [Robitussin Dm -] 10 ml PO Q4H PRN cup 02/07/19 Mag Hydrox/Al Hydrox/Simeth [Mylanta Oral Suspension -] 15 ml PO Q6H PRN cup Sumatriptan Succinate [Imitrex -] 50 mg PO PRN PRN tablet 02/07/19 Tiotropium [place] [Spiriva Respimat] 2 puff IH DAILY inhaler 02/07/19 Topiramate [Topamax -] 25 mg PO BID tablet 02/07/19 predniSONE [Deltasone -] 40 mg PO DAILY tablet 02/07/19
[2019-02-07 17:20] VITALS: BP 134/89; PULSE 75; TEMP 98.6
== END 2019-02-07 18:41 | DRG 140 ==
LOC: JER 21:41 → JERBED 01-31 04:05 → J5S 01-31 15:30
PROVIDERS: ADMIT Family Medicine; ATTEND Family Medicine
DX: J44.1 Chronic obstructive pulmonary disease with (acute) exacerbation (principal); G92 Toxic encephalopathy; Z99.81 Dependence on supplemental oxygen; J20.9 Acute bronchitis, unspecified; E78.5 Hyperlipidemia, unspecified; G47.33 Obstructive sleep apnea (adult) (pediatric); F32.9 Major depressive disorder, single episode, unspecified; K21.9 Gastro-esophageal reflux disease without esophagitis; N76.0 Acute vaginitis; G43.909 Migraine, unspecified, not intractable, without status migrainosus; I10 Essential (primary) hypertension; G25.81 Restless legs syndrome; F51.04 Psychophysiologic insomnia; R09.82 Postnasal drip; E66.9 Obesity, unspecified; R06.82 Tachypnea, not elsewhere classified; Z68.39 Body mass index [BMI] 39.0-39.9, adult; E87.6 Hypokalemia; F41.9 Anxiety disorder, unspecified; F17.210 Nicotine dependence, cigarettes, uncomplicated
CPT/HCPCS: 36415; 70450-TC; 71046-TC-FY; 76830-TC; 80053; 81003; 82550; 82803; 83540; 83550; 84484; 85025; 85027; 85610; 87086; 87804; 93005; 93010; 94640; 97116-GP; 97161-GP; 99283-25; J1644